=== PATIENT | female | born 1960 | race African-American/Black ===

== ENCOUNTER 2016-07-01 12:13 | Inpatient (IN) | payer MEDICARE, MEDICAID ==
--- NOTE | 2016-07-01 12:32 | ER Document Report ---
[id number] Information source: Patient TRAVEL OUTSIDE OF THE [place] IN LAST 30 DAYS: No - HPI Patient complains to provider of: Dizziness Onset: Other - "several days" Onset/Duration: Gradual, Persistent <WENDY SELLERS - Last Filed: 07/07/16 05:58> - General Chief Complaint: Dizziness Stated Complaint: DIZZINESS Notes: This 55-year-old female patient is brought from the senior care for dizziness for the past few days. She was admitted here on 05/07/2016 with COPD exacerbation, pneumonia, requiring intubation. She was readmitted on 2015 and on 1225 transferred to [facility]. Prior to transfer she received 2 units of packed cells for hemoglobin of 7.0 and heme positive stool. She also had atrial fibrillation and was on eloquent. She went to [facility] for EP studies, by patient history she had an ablation done and was discharged on metoprolol with no diltiazem. The paperwork from the senior care has the admission H&P from [facility] but no discharge summaries. The patient reports that they did not want to do endoscopy or colonoscopy at [facility] during that admission due to her other issues. They had recommended her for outpatient workup to identify a bleeding source. She does have a long history of tobacco dependence, COPD, alcoholism. When the patient sits up she becomes mostly dizzy probably due to orthostatic hypotension. (IRVING RAZO) Patient is a 55-year-old female presenting to the emergency department from [facility] chief complaint dizziness over the past several days. Patient is on 2 L of oxygen at home, and denies any symptoms besides the dizziness. Patient has a history of type II diabetes, congestive heart failure , COPD, and A. fib. (WENDY SELLERS) - Related Data Allergies/Adverse Reactions: erythromycin base [Erythromycin Base] Allergy (Mild, Verified 06/10/16 21:58) Home Medications: Current Home Medications Acetaminophen [Tylenol 325 mg Tablet] 325 mg PO Q4HP PRN 07/02/16 [History] Budesonide/Formoterol Fumarate [Symbicort HFA 160-4.5 mcg Inhaler 6 gm] 2 puff IH Q12 07/02/16 [History] Ferrous Sulfate [Iron] 325 mg PO DAILY 07/02/16 [History] Folic Acid [Folvite 1 mg Tablet] 1 mg PO DAILY 07/02/16 [History] Glipizide [Glucotrol 5 mg Tablet] 2.5 mg PO DAILY 07/02/16 [History] Ipratropium/Albuterol Sulfate [Duoneb 3 ml Ampul] 3 ml NEB RTQ4HP PRN 07/02/16 [ History] Pantoprazole Sodium [Protonix] 40 mg PO DAILY 07/02/16 [History] Past Medical History - General Information source: Patient, [facility] Records - Social History Smoking Status: Unknown if Ever Smoked Chew tobacco use (# tins/day): No Lives with: Fpc Family History: Reviewed & Not Pertinent, CAD, COPD, Hypertension - Past Medical History Cardiac Medical History: Reports: Hx Atrial Fibrillation, Hx Congestive Heart Failure, Hx Heart Attack, Hx Hypertension Pulmonary Medical History: Reports: Hx COPD, Hx Pneumonia Endocrine Medical History: Reports: 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 Musculoskeltal Medical History: Reports Hx Arthritis Past Surgical History: Reports: Hx Cardiac Catheterization, Hx Section - Immunizations Immunizations up to date: Yes Hx Diphtheria, Pertussis, Tetanus Vaccination: Yes Hx Pneumococcal Vaccination: 05/18/12 <WENDY SELLERS - Last Filed: 07/07/16 05:58> Review of Systems - Review of Systems Constitutional: No symptoms reported EENT: No symptoms reported Cardiovascular: See HPI, Dizziness Respiratory: No symptoms reported Gastrointestinal: No symptoms reported Genitourinary: No symptoms reported Female Genitourinary: No symptoms reported Musculoskeletal: No symptoms reported Skin: No symptoms reported Hematologic/Lymphatic: No symptoms reported Neurological/Psychological: No symptoms reported -: Yes All other systems reviewed and negative <WENDY SELLERS - Last Filed: 07/07/16 05:58> Physical Exam <IRVING RAZO - Last Filed: 07/01/16 16:02> - Vital signs Interpretation: Tachycardic - General General appearance: Alert - HEENT Head: Normocephalic, Atraumatic Eyes: Normal Pupils: PERRL - Respiratory Chest status: Nontender Breath sounds: Rhonchi, Wheezing - Cardiovascular Rhythm: Irregularly irregular, Tachycardia Heart sounds: Normal auscultation Murmur: No - Abdominal Inspection: Normal Distension: No distension Bowel sounds: Normal Tenderness: Nontender Organomegaly: No organomegaly - Back Back: Normal, Nontender - Extremities General upper extremity: Normal inspection, Nontender, Normal color, Normal ROM , Normal temperature General lower extremity: Normal inspection, Nontender, Normal color, Normal ROM , Normal temperature - Neurological Neuro grossly intact: Yes Cognition: Normal [place] Coma Scale Eye Opening: Spontaneous [place] Coma Scale Verbal: Oriented [place] Coma Scale Motor: Obeys Commands [place] Coma Scale Total: 15 Speech: Normal - Psychological Associated symptoms: Normal affect, Normal mood - Skin Skin Temperature: Warm Skin Moisture: Dry Skin Color: Normal <WENDY SELLERS - Last Filed: 07/07/16 05:58> - Vital signs Vitals: Resp BP 17 76/53 L 07/01/16 12:29 07/01/16 12:29 (IRVING RAZO) - Respiratory Notes: Oxygen tubes from [employer] are filled with water suggestive of less than adequate delivery of O2. (WENDY SELLERS) Course - Laboratory Result Diagrams: 07/01/16 13:45 07/01/16 13:45 - Diagnostic Test Radiology reviewed: Image reviewed, Reports reviewed - Chest x-ray read as mild fluid overload or CHF imposed on COPD. - EKG Interpretation by Nd EKG shows normal: [place], QRS Complexes. abnormal: Intervals - Prolonged QT interval, ST-T Waves - Diffuse ST elevations Rate: Tachycardia - 156 Rhythm: A.Fib, A.Flutter - Consults Dr. Parish Time consulted: 16:45 Consulted provider: will come to ER <IRVING RAZO - Last Filed: 07/01/16 16:02> - Laboratory Result Diagrams: 07/03/16 05:32 07/03/16 05:32 <WENDY SELLERS - Last Filed: 07/07/16 05:58> - Re-evaluation Re-evalutation: 07/01/16 15:46 After being on Cardizem drip and receiving 1 L fluid, the patient has gone back into sinus rhythm, and Cardizem drip was decreased from 10-5 mg/h. Her blood pressure is still in the 85-90 range, but she does feel better unless she sits up. She is due to receive blood transfusions when the blood is available. 2 units of blood were ordered. She may need diuresis while she is receiving the blood. The chest x-ray was read as mild fluid overdose or CHF superimposed on COPD, however her BNP is only 498 despite being in atrial fibrillation with RVR for quite some time. Her total CK is less than 20. (IRVING RAZO) - Vital Signs Vital signs: Temp Pulse Resp BP Pulse Ox 97.6 F 85 16 123/84 100 07/03/16 11:47 07/03/16 11:47 07/03/16 11:47 07/03/16 11:47 07/03/16 11:47 (IRVING RAZO) - Laboratory Laboratory results interpreted by me: 07/01/16 07/01/16 07/01/16 13:45 13:45 13:45 WBC 11.3 H RBC 2.83 L Hgb 7.0 L Hct 23.2 L MCH 24.9 L MCHC 30.3 L RDW 19.3 H Potassium 3.1 L Chloride 93 L Carbon Dioxide 38 H BUN 21 H Creatine Kinase < 20 L Total Protein 5.7 L Albumin 2.8 L Crossmatch 07/01/16 14:59 WBC RBC Hgb Hct MCH MCHC RDW Potassium Chloride Carbon Dioxide BUN Creatine Kinase Total Protein Albumin Crossmatch See Detail Critical Care Note - Critical Care Note Total time excluding time spent on procedures (mins): 50 <IRVING RAZO - Last Filed: 07/01/16 16:02> Discharge - Discharge Admitting Provider: Hospitalist Unit Admitted: ICU <IRVING RAZO - Last Filed: 07/01/16 16:02> <WENDY SELLERS - Last Filed: 07/07/16 05:58> - Discharge Clinical Impression: Atrial fibrillation with rapid ventricular response, Orthostatic lightheadedness Anemia Qualifiers: Anemia type: unspecified type Qualified Code(s): D64.9 - Anemia, unspecified GI bleed Qualifiers: GI bleed type/associated pathology: unspecified gastrointestinal hemorrhage type Qualified Code(s): K92.2 - Gastrointestinal hemorrhage, unspecified COPD (chronic obstructive pulmonary disease) Qualifiers: COPD type: chronic bronchitis Chronic bronchitis type: unspecified Qualified Code(s): J42 - Unspecified chronic bronchitis Hypotension Qualifiers: Hypotension type: unspecified hypotension type Qualified Code(s): I95.9 - Hypotension, unspecified Scribe Attestation: 07/01/16 16:03 I personally performed the services described in the documentation, reviewed and edited the documentation which was dictated to the scribe in my presence, and it accurately records my words and actions. (IRVING RAZO) Scribe Documentation <IRVING RAZO - Last Filed: 07/01/16 16:02> <WENDY SELLERS - Last Filed: 07/07/16 05:58> - Scribe Written by Scribe:: MADDIE MCPHERSON 07/01/16 1231 Acting as scribe for: (IRVING RAZO) Dr. Razo (WENDY SELLERS)
[2016-07-01] MEDS ORDERED: DILTIAZEM HCL/D5W 125 ML IV PRN ×2 (12:42→16:31)
[2016-07-01] MEDS ORDERED: NORMAL SALINE 1000 ML 250 ML IV ONE (13:13)
[2016-07-01] MEDS ORDERED: IPRATROPIUM/ALBUTEROL 0.5-2.5 MG/3 ML AMPUL NEB ONE (13:42)
[2016-07-01 14:23] LABS: ABSOLUTE BASOPHILS # (AUTO) 0.1 10^3/uL (0.0-0.2); ABSOLUTE LYMPHOCYTES (AUTO) 2.1 10^3/uL (0.5-4.7); ABSOLUTE MONOCYTES (AUTO) 0.8 10^3/uL (0.1-1.4); ABSOLUTE NEUT (AUTO) 8.2 10^3/uL (1.7-8.2); EOSINOPHILS % (AUTO) 0.3 % (0-6); HEMATOCRIT 23.2 % (36.0-47.0); HGB HCT DIFFERENCE -2.2; LYMPHOCYTES % (AUTO) 18.7 % (13-45); MEAN CORPUSCULAR HEMOGLOBIN 24.9 pg (27.0-33.4); MEAN CORPUSCULAR HGB CONC 30.3 g/dL (32.0-36.0); MEAN CORPUSCULAR VOLUME 82 fl (80-97); MONOCYTES % (AUTO) 7.2 % (3-13); RED BLOOD COUNT 2.83 10^6/uL (3.72-5.28); RED CELL DISTRIBUTION WIDTH 19.3 % (11.5-14.0); SEGMENTED NEUTROPHILS % (AUTO) 72.8 % (42-78); WHITE BLOOD COUNT 11.3 10^3/uL (4.0-10.5)
[2016-07-01 14:33] LABS: ALANINE AMINOTRANSFERASE 24 U/L (9-52); ALBUMIN 2.8 g/dL (3.5-5.0); ALKALINE PHOSPHATASE 63 U/L (38-126); ANION GAP 12 (5-19); ASPARTATE AMINO TRANSFERASE 18 U/L (14-36); BILIRUBIN,TOTAL 0.2 mg/dL (0.2-1.3); BLOOD UREA NITROGEN 21 mg/dL (7-20); CALCIUM 8.7 mg/dL (8.4-10.2); CARBON DIOXIDE 38 mmol/L (22-30); CHLORIDE 93 mmol/L (98-107); CREATININE RESULT 0.84 mg/dL (0.52-1.25); GLUCOSE 96 mg/dL (75-110); MAGNESIUM 1.6 mg/dL (1.6-2.3); POTASSIUM 3.1 mmol/L (3.6-5.0); SODIUM 142.9 mmol/L (137-145); TOTAL PROTEIN 5.7 g/dL (6.3-8.2)
[2016-07-01 14:45] LABS: ADD ON TESTING BLD IN LAB ACKNOWLEDGE
[2016-07-01 15:05] LABS: CREATINE KINASE < 20 U/L (30-135)
[2016-07-01 15:37] LABS: APPEARANCE,URINE CLEAR; BILIRUBIN,URINE NEGATIVE (NEGATIVE); GLUCOSE, URINE NEGATIVE (NEGATIVE); KETONES,URINE NEGATIVE (NEGATIVE); LEUKOCYTE ESTERASE,URINE NEGATIVE (NEGATIVE); NITRITE,URINE NEGATIVE (NEGATIVE); PROTEIN,URINE NEGATIVE (NEGATIVE); URINE SPECIFIC GRAVITY 1.006; UROBILINOGEN,URINE NEGATIVE mg/dL (<2.0)
[2016-07-01] MEDS ORDERED: IPRATROPIUM/ALBUTEROL 0.5-2.5 MG/3 ML AMPUL NEB PRN (16:20)
[2016-07-01] MEDS ORDERED: ONDANSETRON HCL INJ/PF 4 MG/2 ML SDV IV PRN (16:27)
[2016-07-01] MEDS ORDERED: MAGNESIUM HYDROXIDE SUSP 30 ML UDCUP PO PRN (16:27)
[2016-07-01] MEDS ORDERED: DEXTROSE 40% GEL 15 GM TUBE PO PRN ×2 (16:32)
[2016-07-01] MEDS ORDERED: NORMAL SALINE 250 ML IV PRN (16:32)
[2016-07-01] MEDS ORDERED: GLUCAGON,HUMAN RECOMB 1 MG INJ IM PRN (16:32)
[2016-07-01] MEDS ORDERED: DEXTROSE 50%-WATER 25 GM/50 ML DISP.SYRIN IV PRN ×2 (16:32)
--- NOTE | 2016-07-01 16:57 | PDOC H&P ---
History of Present Illness Admission Date/PCP: CHANO CHERY Patient complains of: Dizziness History of Present Illness: TERE VALERIO is a 55 year old female presents from [facility] with a one -week history of dizziness, worse with change in posture. The patient is at halfway facility for rehabilitation after multiple hospitalizations and chronic medical problems not the least of which include: Atrial fibrillation with RVR status post ablation [facility] ago, hospitalization over the holidays for pneumonia requiring intubation and mechanical ventilation for a period of time ultimately resulting in transfer to tertiary care center for critical care, acute on chronic anemia in need of endoscopy and requiring transfusion but has been in and out of the hospital and unable to complete endoscopy. Evaluation in the emergency department shows her to be in recurrent atrial fibrillation with RVR and a heart rate of 150, worsening of her chronic anemia with a hemoglobin of 7.0, and hypotension with systolic pressures initially in the 80s. She was given a bolus of Cardizem, a bolus of normal saline, and started on a Cardizem drip with good results and conversion back to normal sinus rhythm with heart rate now in the 80s and improvement of her systolic blood pressure 100. 2 units of packed red blood cells have been ordered and are still pending at the time of this dictation. We were asked to admit the patient due to multiple medical problems for further evaluation and treatment. Of note we do not have gastroenterology covered this weekend. 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 Musculoskeltal Medical History: Reports: Arthritis Hematology: Reports: Anemia Past Surgical History Past Surgical History: Reports: Cardiac Catheterization, Section Social History Lives with: Fpc Smoking Status: Smoker,Current Status Unk Frequency of Alcohol Use: None Hx Recreational Drug Use: No Drugs: None Hx Prescription Drug Abuse: No - Advance Directive Resuscitation Status: Full Code Family History Family History: Reviewed & Not Pertinent, CAD, COPD, Hypertension Parental Family History Reviewed: Yes Children Family History Reviewed: Yes Sibling(s) Family History Reviewed.: Yes Medication/Allergy Home Medications: Ferrous Sulfate [Iron] 325 mg PO DAILY #30 capsule.sa 08/17/12 Aspirin [Aspirin 81 mg Chewable Tablet] 81 mg PO DAILY 10/23/14 Albuterol Sulfate [Ventolin Hfa] 2 puff IN QID PRN 03/15/16 Budesonide/Formoterol Fumarate [Symbicort HFA 160-4.5 mcg Inhaler 6 gm] 2 puff IN BID 03/15/16 Furosemide [Lasix 40 mg Tablet] 40 mg PO DAILY 03/15/16 Ipratropium/Albuterol Sulfate [Duoneb 3 ml Ampul] 3 ml NEB Q4HP PRN #90 vial.neb 03/17/16 Acetaminophen [Tylenol 325 mg Tablet] 650 mg PO Q4HP PRN tablet 05/24/16 Apixaban [Eliquis 5 mg Tablet] 5 mg PO BID #60 tablet 05/24/16 Diltiazem HCl [Diltiazem 24Hr Cd] 360 mg PO DAILY #30 cap.er.24h 05/24/16 Guaifenesin [Mucinex Sr 600 mg Tablet.sa] 1,200 mg PO Q12 tablet.sa 05/24/16 Metoprolol Tartrate [Lopressor 50 mg Tablet] 100 mg PO Q12 tablet 05/24/16 Nicotine [Nicoderm 14 mg/24 Hr Transdermal Patch] 1 each TD DAILYP PRN patch.td24 05/24/16 Prednisone [Deltasone 20 mg Tablet] 40 mg PO QAM #60 tablet 05/24/16 Allergies/Adverse Reactions: erythromycin base [Erythromycin Base] Allergy (Mild, Verified 06/10/16 21:58) Review of Systems Constitutional: PRESENT: as per HPI, weakness. ABSENT: headache(s), night sweats Eyes: ABSENT: visual disturbances Ears: ABSENT: hearing changes Nose, Mouth, and Throat: ABSENT: sore throat Cardiovascular: PRESENT: chest pain - Right-sided sharp stabbing worse with inspiration and cough., dyspnea on exertion, edema. ABSENT: orthropnea - Bilateral feet, palpitations Respiratory: PRESENT: cough, dyspnea. ABSENT: hemoptysis Gastrointestinal: ABSENT: abdominal pain, coffee ground emesis, diarrhea, dysphagia, heartburn, hematemesis, hematochezia, melena, nausea, vomiting Genitourinary: ABSENT: hematuria Integumentary: ABSENT: erythema, rash Hematologic/Lymphatic: PRESENT: easy bruising. ABSENT: easy bleeding Physical Exam Vital Signs: Temp Pulse Resp BP Pulse Ox 11 L 94/54 L 98 07/01/16 16:31 07/01/16 16:31 07/01/16 16:31 Intake & Output 06/30/16 07/01/16 07/02/16 06:59 06:59 06:59 Weight 59.5 kg General appearance: PRESENT: no acute distress, thin, well-developed Head exam: PRESENT: atraumatic, normocephalic Eye exam: PRESENT: EOMI, PERRLA. ABSENT: conjunctival injection Mouth exam: PRESENT: moist, neck supple Teeth exam: PRESENT: poor dentation - Multiple missing teeth Neck exam: ABSENT: carotid bruit, JVD, lymphadenopathy, tenderness Respiratory exam: PRESENT: crackles - Diminished with end expiratory crackles at the bases, prolonged expiratory phas. ABSENT: accessory muscle use, rhonchi , unlabored, wheezes Cardiovascular exam: PRESENT: RRR. ABSENT: systolic murmur Pulses: PRESENT: normal carotid pulses, normal radial pulses GI/Abdominal exam: PRESENT: normal bowel sounds, soft. ABSENT: tenderness Rectal exam: PRESENT: deferred Extremities exam: PRESENT: pedal edema - Confined to the feet and ankles. ABSENT: calf tenderness Musculoskeletal exam: PRESENT: full ROM, other - Strength proximally for about 5 Neurological exam: PRESENT: alert, awake, oriented to person, oriented to place , oriented to time Psychiatric exam: PRESENT: appropriate affect, normal mood Skin exam: PRESENT: warm. ABSENT: dry - Moist, erythema, petechiae Results Laboratory Results: 07/01/16 13:45 07/01/16 13:45 07/01/16 07/01/16 07/01/16 13:45 13:45 14:50 WBC 11.3 H RBC 2.83 L Hgb 7.0 L Hct 23.2 L MCV 82 MCH 24.9 L MCHC 30.3 L RDW 19.3 H Plt Count 345 Seg Neutrophils % 72.8 Lymphocytes % 18.7 Monocytes % 7.2 Eosinophils % 0.3 Basophils % 1.0 Absolute Neutrophils 8.2 Absolute Lymphocytes 2.1 Absolute Monocytes 0.8 Absolute Eosinophils 0.0 Absolute Basophils 0.1 Sodium 142.9 Potassium 3.1 L Chloride 93 L Carbon Dioxide 38 H Anion Gap 12 BUN 21 H Creatinine 0.84 Est GFR ( Amer) > 60 Est GFR (Non-Af Amer) > 60 Glucose 96 Calcium 8.7 Magnesium 1.6 Total Bilirubin 0.2 AST 18 ALT 24 Alkaline Phosphatase 63 Total Protein 5.7 L Albumin 2.8 L Urine Color STRAW Urine Appearance CLEAR Urine pH 7.0 Ur Specific [place] 1.006 Urine Protein NEGATIVE Urine Glucose (UA) NEGATIVE Urine Ketones NEGATIVE Urine Blood NEGATIVE Urine Nitrite NEGATIVE Ur Leukocyte Esterase NEGATIVE Urine WBC (Auto) 2 Urine RBC (Auto) 0 Blood Type Antibody Screen 07/01/16 14:59 WBC RBC Hgb Hct MCV MCH MCHC RDW Plt Count Seg Neutrophils % Lymphocytes % Monocytes % Eosinophils % Basophils % Absolute Neutrophils Absolute Lymphocytes Absolute Monocytes Absolute Eosinophils Absolute Basophils Sodium Potassium Chloride Carbon Dioxide Anion Gap BUN Creatinine Est GFR ( Amer) Est GFR (Non-Af Amer) Glucose Calcium Magnesium Total Bilirubin AST ALT Alkaline Phosphatase Total Protein Albumin Urine Color Urine Appearance Urine pH Ur Specific [place] Urine Protein Urine Glucose (UA) Urine Ketones Urine Blood Urine Nitrite Ur Leukocyte Esterase Urine WBC (Auto) Urine RBC (Auto) Blood Type O POSITIVE Antibody Screen NEGATIVE 07/01/16 07/01/16 07/01/16 13:45 13:45 13:45 Creatine Kinase < 20 L Troponin I 0.074 NT-Pro-B Natriuret Pep 498 Impressions: Chest X-Ray 07/01/16 12:42 IMPRESSION: Suspect mild fluid overload or congestive failure superimposed on obstructive lung disease Status: Image reviewed by me Assessment & Plan - Diagnosis (1) Anemia Qualifiers: Anemia type: unspecified type Qualified Code(s): D64.9 - Anemia, unspecified Is this a current diagnosis for this admission?: YesPlan: Transfuse 2 units of packed red blood cells as ordered in the emergency department, continue to trend H&H. The patient is on chronic iron therapy rendering Hemoccult stools useless. If we are unable to maintain a stable hemoglobin and/or the patient shows signs of bleeding she will need to be transferred to a tertiary care center with gastroenterology consult available. (2) Atrial fibrillation with rapid ventricular response Is this a current diagnosis for this admission?: YesPlan: Continue Cardizem drip through the night started in the emergency department, hoping to transition back to her oral Cardizem in the morning. No anticoagulation due to anemia and possible GI bleed. (3) Hypovolemic shock Is this a current diagnosis for this admission?: YesPlan: IV fluids until transfusion complete and then IV fluids as needed to maintain mean arterial pressure greater than or equal to 65. (4) Orthostatic lightheadedness Is this a current diagnosis for this admission?: YesPlan: As above (5) COPD (chronic obstructive pulmonary disease) Qualifiers: COPD type: chronic bronchitis Chronic bronchitis type: unspecified Qualified Code(s): J42 - Unspecified chronic bronchitis Is this a current diagnosis for this admission?: YesPlan: Appears to be at baseline. Continue supplement oxygen. Duo nebs when necessary. Pulmonary toilet. (6) Hypokalemia Is this a current diagnosis for this admission?: YesPlan: Replace and monitor. Magnesium low level of normal and 2 g of mag. As it is Likely contributing to cardiac dysrhythmia. - Time Time Spent: 50 to 70 Minutes - Inpatient Certification Based on my medical assessment, after consideration of the patient's comorbidities, presenting symptoms, or acuity I expect that the services needed warrant INPATIENT care.: Yes I certify that my determination is in accordance with my understanding of Medicare's requirements for reasonable and necessary INPATIENT services [42 CFR 412.3e].: Yes Medical Necessity: Significant Comorbidiites Make Outpatient Treatment Too Risky , Need For IV Fluids, Need For Continuous Telemetry Monitoring
[2016-07-01] MEDS: MAGNESIUM SULFATE/D5W 1 GM/100 ML RTUPB IV SCH ×2 (18:58→20:20)
[2016-07-01] MEDS: INSULIN REG, HUMAN 100 UNIT/ML 3 ML VIAL (PYX) SUBCUT PRN (21:51)
[2016-07-01] MEDS: POTASSI CL 20 MEQ/NS 1L 1,000 ML IV PRN (21:51)
[2016-07-02 04:04] LABS: ABSOLUTE BASOPHILS # (AUTO) 0.1 10^3/uL (0.0-0.2); ABSOLUTE EOSINOPHILS # (AUTO) 0.1 10^3/uL (0.0-0.6); ABSOLUTE LYMPHOCYTES (AUTO) 1.8 10^3/uL (0.5-4.7); ABSOLUTE MONOCYTES (AUTO) 0.8 10^3/uL (0.1-1.4); BASOPHILS % (AUTO) 0.9 % (0-2); EOSINOPHILS % (AUTO) 1.2 % (0-6); LYMPHOCYTES % (AUTO) 18.6 % (13-45); MEAN CORPUSCULAR HEMOGLOBIN 25.7 pg (27.0-33.4); MEAN CORPUSCULAR HGB CONC 31.9 g/dL (32.0-36.0); MEAN CORPUSCULAR VOLUME 81 fl (80-97); MONOCYTES % (AUTO) 8.1 % (3-13); RED BLOOD COUNT 3.11 10^6/uL (3.72-5.28); RED CELL DISTRIBUTION WIDTH 18.8 % (11.5-14.0); SEGMENTED NEUTROPHILS % (AUTO) 71.2 % (42-78); WHITE BLOOD COUNT 9.8 10^3/uL (4.0-10.5)
[2016-07-02 04:14] LABS: ANION GAP 8 (5-19); BLOOD UREA NITROGEN 24 mg/dL (7-20); CALCIUM 8.3 mg/dL (8.4-10.2); CARBON DIOXIDE 37 mmol/L (22-30); CHLORIDE 98 mmol/L (98-107); GLUCOSE 137 mg/dL (75-110); POTASSIUM 3.2 mmol/L (3.6-5.0); SODIUM 142.8 mmol/L (137-145)
[2016-07-02] MEDS: LANSOPRAZOLE 30 MG TAB.RAP.DR PO SCH (05:42)
[2016-07-02] MEDS: POTASSI CL 20 MEQ/NS 1L 1,000 ML IV PRN (08:06)
--- NOTE | 2016-07-02 10:06 | EKG REPORT ---
SEVERITY:- BORDERLINE ECG - SINUS RHYTHM VENTRICULAR PREMATURE COMPLEX BORDERLINE T ABNORMALITIES, ANT-LAT LEADS : Confirmed by: Janine Aviles MD 02-Jul-2016 10:06:24
[2016-07-02] MEDS: DOCUSATE SODIUM 100 MG CAPSULE PO SCH (10:08)
--- NOTE | 2016-07-02 10:08 | EKG REPORT ---
SEVERITY:- ABNORMAL ECG - SINUS TACHYCARDIA VERSUS SVT.CORELATE CLINICALLY FIRST DEGREE AV BLOCK ST ELEVATION SUGGESTS PERICARDITIS PROLONGED QT INTERVAL : Confirmed by: Janine Aviles MD 02-Jul-2016 10:07:56
[2016-07-02] MEDS ORDERED: NORMAL SALINE 250 ML IV PRN ×2 (11:01)
[2016-07-02] MEDS ORDERED: POTASSI CL 20 MEQ/NS 1L 1,000 ML IV PRN (11:05)
--- NOTE | 2016-07-02 11:13 | PDOC PROGRESS REPORT ---
Subjective Progress Note for:: 07/02/16 Subjective:: TERE VALERIO is a 55 year old female presents from [facility] with a one -week history of dizziness, worse with change in posture. The patient is at snf facility for rehabilitation after multiple hospitalizations and chronic medical problems not the least of which include: Atrial fibrillation with RVR status post ablation at [facility] 2 weeks ago, hospitalization over the holidays for pneumonia requiring intubation and mechanical ventilation for a period of time ultimately resulting in transfer to tertiary care center for critical care, acute on chronic anemia in need of endoscopy and requiring transfusion but has been in and out of the hospital and unable to complete endoscopy. Evaluation in the emergency department shows her to be in recurrent atrial fibrillation with RVR and a heart rate of 150, worsening of her chronic anemia with a hemoglobin of 7.0, and hypotension with systolic pressures initially in the 80s. She was given a bolus of Cardizem, a bolus of normal saline, and started on a Cardizem drip with good results and conversion back to normal sinus rhythm with heart rate now in the 80s and improvement of her systolic blood pressure 100. 2 units of packed red blood cells have been ordered and are still pending at the time of this dictation. We were asked to admit the patient due to multiple medical problems for further evaluation and treatment. Of note we do not have gastroenterology covered this weekend. The patient tolerated transfusion of 2 units last night without difficulty however her hemoglobin only came up by 1 g. Her overall condition improved, meaning she remained in a normal sinus rhythm while on a Cardizem drip at 5 mg per hour through the night. Likewise her blood pressure stabilized. Swelling of her lower extremities improved. Respiratory status remained stable. Overall she feels better than when she came in with resolution of her dizziness. Physical Exam Vital Signs: Temp Pulse Resp BP Pulse Ox 98.6 F 89 20 117/69 100 07/02/16 07:55 07/02/16 11:00 07/02/16 07:55 07/02/16 11:00 07/02/16 07:55 Intake & Output 07/01/16 07/02/16 07/03/16 06:59 06:59 06:59 Intake Total 2165 Output Total 800 Balance 1365 Weight 58.1 kg General appearance: PRESENT: no acute distress, thin, well-developed Head exam: PRESENT: atraumatic, normocephalic Eye exam: PRESENT: conjunctiva pink, EOMI, PERRLA. ABSENT: scleral icterus Mouth exam: PRESENT: moist, tongue midline Neck exam: ABSENT: carotid bruit, JVD, lymphadenopathy, thyromegaly Respiratory exam: PRESENT: crackles - Basis, decreased breath sounds, unlabored. ABSENT: rales, rhonchi, wheezes Cardiovascular exam: PRESENT: RRR. ABSENT: diastolic murmur, rubs, systolic murmur Pulses: PRESENT: normal dorsalis pedis pul Vascular exam: PRESENT: normal capillary refill GI/Abdominal exam: PRESENT: normal bowel sounds, soft. ABSENT: distended, guarding, rebound, tenderness Rectal exam: PRESENT: deferred Extremities exam: PRESENT: full ROM, pedal edema - Ankles, improved. ABSENT: calf tenderness, clubbing Musculoskeletal exam: PRESENT: ambulatory Neurological exam: PRESENT: alert, awake, oriented to person, oriented to place , oriented to time, oriented to situation Psychiatric exam: PRESENT: appropriate affect, normal mood Skin exam: PRESENT: warm. ABSENT: cyanosis, dry - Moist Results Laboratory Results: 07/02/16 03:45 07/02/16 03:45 07/02/16 07/02/16 03:45 03:45 WBC 9.8 RBC 3.11 L Hgb 8.0 L Hct 25.0 L MCV 81 MCH 25.7 L MCHC 31.9 L RDW 18.8 H Plt Count 282 Seg Neutrophils % 71.2 Lymphocytes % 18.6 Monocytes % 8.1 Eosinophils % 1.2 Basophils % 0.9 Absolute Neutrophils 7.0 Absolute Lymphocytes 1.8 Absolute Monocytes 0.8 Absolute Eosinophils 0.1 Absolute Basophils 0.1 Sodium 142.8 Potassium 3.2 L Chloride 98 Carbon Dioxide 37 H Anion Gap 8 BUN 24 H Creatinine 0.80 Est GFR ( Amer) > 60 Est GFR (Non-Af Amer) > 60 Glucose 137 H Calcium 8.3 L Phosphorus 4.0 Magnesium 2.0 07/01/16 07/01/16 07/02/16 19:57 21:18 03:45 Troponin I Cancelled 0.181 0.116 07/02/16 09:12 Troponin I 0.083 Impressions: Chest X-Ray 07/01/16 12:42 IMPRESSION: Suspect mild fluid overload or congestive failure superimposed on obstructive lung disease Assessment & Plan - Diagnosis (1) Anemia Qualifiers: Anemia type: unspecified type Qualified Code(s): D64.9 - Anemia, unspecified Is this a current diagnosis for this admission?: YesPlan: Transfuse another 2 units of packed red blood cells, continue to trend H&H. The patient is on chronic iron therapy rendering Hemoccult stools useless. If we are unable to maintain a stable hemoglobin and/or the patient shows signs of bleeding she will need to be transferred to a tertiary care center with gastroenterology consult available. (2) Atrial fibrillation with rapid ventricular response Is this a current diagnosis for this admission?: YesPlan: Resolved. Start oral and discontinue Cardizem drip. eliquis on hold, No anticoagulation due to anemia and possible GI bleed. (3) Hypovolemic shock Is this a current diagnosis for this admission?: YesPlan: Resolved with IV fluids, continue gentle IV fluids. On withdrawing status. (4) Orthostatic lightheadedness Is this a current diagnosis for this admission?: YesPlan: Resolved (5) COPD (chronic obstructive pulmonary disease) Qualifiers: COPD type: chronic bronchitis Chronic bronchitis type: unspecified Qualified Code(s): J42 - Unspecified chronic bronchitis Is this a current diagnosis for this admission?: Yes (6) Hypokalemia Is this a current diagnosis for this admission?: YesPlan: Replace and monitor. Magnesium low level of normal and 2 g of mag. As it is Likely contributing to cardiac dysrhythmia. - Time Time Spent with patient: 35 or more minutes Anticipated discharge: SNF Within: within 48 hours
[2016-07-02] MEDS ORDERED: POTASSIUM CHLORIDE 10 MEQ TABLET.SA PO ONE (12:00)
[2016-07-02] MEDS ORDERED: DILTIAZEM HCL 240 MG CAPSULE.CR PO ONE (12:00)
[2016-07-02] MEDS: ACETAMINOPHEN 325 MG TABLET PO PRN ×2 (15:24→23:53)
[2016-07-02] MEDS: INSULIN REG, HUMAN 100 UNIT/ML 3 ML VIAL (PYX) SUBCUT PRN (17:49)
[2016-07-02] MEDS: POTASSIUM CHLORIDE 10 MEQ TABLET.SA PO SCH (21:07)
[2016-07-02 23:12] LABS: ABSOLUTE BASOPHILS # (AUTO) 0.1 10^3/uL (0.0-0.2); ABSOLUTE EOSINOPHILS # (AUTO) 0.2 10^3/uL (0.0-0.6); ABSOLUTE LYMPHOCYTES (AUTO) 2.1 10^3/uL (0.5-4.7); ABSOLUTE MONOCYTES (AUTO) 0.9 10^3/uL (0.1-1.4); ABSOLUTE NEUT (AUTO) 6.3 10^3/uL (1.7-8.2); HEMATOCRIT 34.3 % (36.0-47.0); HGB HCT DIFFERENCE -1.9; LYMPHOCYTES % (AUTO) 22.2 % (13-45); MEAN CORPUSCULAR HEMOGLOBIN 25.4 pg (27.0-33.4); MEAN CORPUSCULAR HGB CONC 31.4 g/dL (32.0-36.0); MEAN CORPUSCULAR VOLUME 81 fl (80-97); MONOCYTES % (AUTO) 9.8 % (3-13); RED BLOOD COUNT 4.23 10^6/uL (3.72-5.28); WHITE BLOOD COUNT 9.7 10^3/uL (4.0-10.5)
[2016-07-02 23:23] LABS: HEMOGLOBIN 10.8 g/dL (12.0-15.5)
[2016-07-03] MEDS: LANSOPRAZOLE 30 MG TAB.RAP.DR PO SCH (05:30)
[2016-07-03 06:03] LABS: HEMATOCRIT 34.6 % (36.0-47.0); HEMOGLOBIN 10.7 g/dL (12.0-15.5); HGB HCT DIFFERENCE -2.5; MEAN CORPUSCULAR HEMOGLOBIN 25.5 pg (27.0-33.4); MEAN CORPUSCULAR HGB CONC 30.9 g/dL (32.0-36.0); MEAN CORPUSCULAR VOLUME 83 fl (80-97); RED CELL DISTRIBUTION WIDTH 19.2 % (11.5-14.0); WHITE BLOOD COUNT 9.3 10^3/uL (4.0-10.5)
[2016-07-03 06:27] LABS: ANION GAP 9 (5-19); BLOOD UREA NITROGEN 11 mg/dL (7-20); CALCIUM 9.1 mg/dL (8.4-10.2); CARBON DIOXIDE 35 mmol/L (22-30); CHLORIDE 100 mmol/L (98-107); CREATININE RESULT 0.48 mg/dL (0.52-1.25); GLUCOSE 153 mg/dL (75-110); POTASSIUM 3.8 mmol/L (3.6-5.0); SODIUM 144.4 mmol/L (137-145)
[2016-07-03] MEDS: POTASSIUM CHLORIDE 10 MEQ TABLET.SA PO SCH (09:02)
[2016-07-03] MEDS: DOCUSATE SODIUM 100 MG CAPSULE PO SCH (09:03)
[2016-07-03] MEDS ORDERED: DILTIAZEM HCL 240 MG CAPSULE.CR PO SCH (10:00)
[2016-07-03 11:50] VITALS: BP 123/84
--- NOTE | 2016-07-03 13:32 | PDOC DISCHARGE SUMMARY ---
General - Admit/Disc Date/PCP Admission Date/Primary Care Provider: 07/01/16 16:20 CHANO CHERY Discharge Date: 07/03/16 - Discharge Diagnosis (1) Anemia Is this a current diagnosis for this admission?: YesSummary: Status post transfusion of 4 units packed red blood cells without complication and with good improvement in her hemoglobin and hemodynamic status. She is already being followed by gastroenterology and Genny Gaxiola has follow-up appointment with them to schedule endoscopy. She is to remain off antiplatelet and anticoagulation therapy in the interim. (2) Atrial fibrillation with rapid ventricular response Is this a current diagnosis for this admission?: YesSummary: Rate is better controlled on Cardizem CD 240 mg, will DC her metoprolol and continue the Cardizem at home. She is to follow-up with her cardiology provider as needed. (3) Hypovolemic shock Is this a current diagnosis for this admission?: YesSummary: Resolved with transfusion and IV fluids. (4) Orthostatic lightheadedness Is this a current diagnosis for this admission?: YesSummary: Resolved with transfusion and IV fluids. (5) COPD (chronic obstructive pulmonary disease) Is this a current diagnosis for this admission?: YesSummary: Stable and at baseline. Has supplemental O2 and home nebulizer already at home and available for use (6) Hypokalemia Is this a current diagnosis for this admission?: YesSummary: Replaced. Resolved. - Additional Information Resuscitation Status: Full Code Discharge Diet: Cardiac Discharge Activity: Slowly Increase Activity Home Medications: Acetaminophen [Tylenol 325 mg Tablet] 325 mg PO Q4HP PRN 07/02/16 Budesonide/Formoterol Fumarate [Symbicort HFA 160-4.5 mcg Inhaler 6 gm] 2 puff IH Q12 07/02/16 Ferrous Sulfate [Iron] 325 mg PO DAILY 07/02/16 Folic Acid [Folvite 1 mg Tablet] 1 mg PO DAILY 07/02/16 Glipizide [Glucotrol 5 mg Tablet] 2.5 mg PO DAILY 07/02/16 Ipratropium/Albuterol Sulfate [Duoneb 3 ml Ampul] 3 ml NEB RTQ4HP PRN 07/02/16 Pantoprazole Sodium [Protonix] 40 mg PO DAILY 07/02/16 Diltiazem HCl [Cardizem Cd 240 mg Capsule.cr] 240 mg PO DAILY #0 capsule.cr Lorazepam [Ativan 0.5 mg Tablet] 0.5 mg PO TIDP PRN #0 tablet 07/03/16 History of Present Illness Patient complains of: Dizziness History of Present Illness: TERE VALERIO is a 55 year old female presents from [facility] with a one -week history of dizziness, worse with change in posture. The patient is at [facility]dc facility for rehabilitation after multiple hospitalizations and chronic medical problems not the least of which include: Atrial fibrillation with RVR status post ablation at [facility] 2 weeks ago, hospitalization over the holidays for pneumonia requiring intubation and mechanical ventilation for a period of time ultimately resulting in transfer to tertiary care center for critical care, acute on chronic anemia in need of endoscopy and requiring transfusion but has been in and out of the hospital and unable to complete endoscopy. Evaluation in the emergency department shows her to be in recurrent atrial fibrillation with RVR and a heart rate of 150, worsening of her chronic anemia with a hemoglobin of 7.0, and hypotension with systolic pressures initially in the 80s. She was given a bolus of Cardizem, a bolus of normal saline, and started on a Cardizem drip with good results and conversion back to normal sinus rhythm with heart rate now in the 80s and improvement of her systolic blood pressure 100. 2 units of packed red blood cells have been ordered and are still pending at the time of this dictation. We were asked to admit the patient due to multiple medical problems for further evaluation and treatment. Of note we do not have gastroenterology covered this weekend. Hospital Course Hospital Course: TERE VALERIO is a 55 year old female presents from [facility] with a one -week history of dizziness, worse with change in posture. The patient is at [facility] for rehabilitation after multiple hospitalizations and chronic medical problems not the least of which include: Atrial fibrillation with RVR status post ablation at [facility] 2 weeks ago, hospitalization over the holidays for pneumonia requiring intubation and mechanical ventilation for a period of time ultimately resulting in transfer to tertiary care center for critical care, acute on chronic anemia in need of endoscopy and requiring transfusion but has been in and out of the hospital and unable to complete endoscopy. Evaluation in the emergency department shows her to be in recurrent atrial fibrillation with RVR and a heart rate of 150, worsening of her chronic anemia with a hemoglobin of 7.0, and hypotension with systolic pressures initially in the 80s. She was given a bolus of Cardizem, a bolus of normal saline, and started on a Cardizem drip with good results and conversion back to normal sinus rhythm with heart rate now in the 80s and improvement of her systolic blood pressure 100. 2 units of packed red blood cells have been ordered and are still pending at the time of this dictation. We were asked to admit the patient due to multiple medical problems for further evaluation and treatment. Of note we do not have gastroenterology covered this weekend. The patient tolerated transfusion of 2 units last night without difficulty however her hemoglobin only came up by 1 g. Her overall condition improved, meaning she remained in a normal sinus rhythm while on a Cardizem drip at 5 mg per hour through the night. Likewise her blood pressure stabilized. Swelling of her lower extremities improved. Respiratory status remained stable. Overall she feels better than when she came in with resolution of her dizziness. She required an additional 22 units packed red blood cells to get her hemoglobin greater than 10 and achieve resolution of her presenting symptoms. She was taken off the Cardizem drip successfully and transitioned over to an oral regimen. Due to the presyncope and dizziness she presented with as well as recurrent atrial fibrillation with rapid ventricular response, decision was made to take her off her metoprolol and keep her on the Cardizem long-term. 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 She showed no overt signs or symptoms of acute blood loss. She has follow-up appointment with gastroenterology [facility] to set up outpatient endoscopy. She is to hold antiplatelet and anticoagulation until that follow-up as clearly her risk of hemodynamic significant bleeding outweighs the risk of embolic stroke from her atrial fibrillation. Physical Exam Vital Signs: Temp Pulse Resp BP Pulse Ox 97.6 F 85 16 123/84 100 07/03/16 11:47 07/03/16 11:47 07/03/16 11:47 07/03/16 11:47 07/03/16 11:47 Intake & Output 07/02/16 07/03/16 07/04/16 06:59 06:59 06:59 Intake Total 2165 3270 480 Output Total 800 2300 Balance 1365 970 480 Weight 58.1 kg 59.1 kg General appearance: PRESENT: no acute distress, thin Respiratory exam: PRESENT: chest wall tenderness - Right lower ribs with palpation and deep inspiration, decreased breath sounds. ABSENT: rales, rhonchi , wheezes Cardiovascular exam: PRESENT: RRR - Converted to normal sinus rhythm in the emergency department and remained in same since. GI/Abdominal exam: PRESENT: normal bowel sounds, soft. ABSENT: tenderness Extremities exam: PRESENT: pedal edema Results Laboratory Results: 07/03/16 05:32 07/03/16 05:32 07/02/16 07/03/16 07/03/16 22:53 05:32 05:32 WBC 9.7 9.3 RBC 4.23 4.20 Hgb 10.8 L D 10.7 L Hct 34.3 L 34.6 L MCV 81 83 MCH 25.4 L 25.5 L MCHC 31.4 L 30.9 L RDW 19.0 H 19.2 H Plt Count 299 308 Seg Neutrophils % 65.0 Lymphocytes % 22.2 Monocytes % 9.8 Eosinophils % 2.0 Basophils % 1.0 Absolute Neutrophils 6.3 Absolute Lymphocytes 2.1 Absolute Monocytes 0.9 Absolute Eosinophils 0.2 Absolute Basophils 0.1 Sodium 144.4 Potassium 3.8 Chloride 100 Carbon Dioxide 35 H Anion Gap 9 BUN 11 Creatinine 0.48 L Est GFR ( Amer) > 60 Est GFR (Non-Af Amer) > 60 Glucose 153 H Calcium 9.1 07/01/16 07/01/16 07/02/16 19:57 21:18 03:45 Troponin I Cancelled 0.181 0.116 07/02/16 09:12 Troponin I 0.083 Impressions: Chest X-Ray 07/01/16 12:42 IMPRESSION: Suspect mild fluid overload or congestive failure superimposed on obstructive lung disease Qualifiers PATEINT BEING DISCHARGED WITH ANY OF THE FOLLOWING DIAGNOSIS?: No HF Pt with Afib discharged with Warfarin?: No Reason(s) for not prescribing Warfarin:: Medical Contraindication Plan Discharge Plan: [facility] instead choosing to go home with home health and outpatient physical therapy and fdc; case management has met with patient and arrangements are in place. Follow-ups as noted above. Return to emergency department for worsening condition. Time Spent: Greater than 30 Minutes
== END 2016-07-03 14:22 | disposition home health service (06) | DRG 308 ==
LOC: ER 12:13 → EH 16:20 → 3W 22:37
PROVIDERS: ADMIT Internal Medicine; ATTEND Internal Medicine
PROC: 30233N1 Transfusion of Nonautologous Red Blood Cells into Peripheral Vein, Percutaneous Approach (ICD-10-PCS; principal; 2016-07-01)
PROC: 3E0F73Z Introduction of Anti-inflammatory into Respiratory Tract, Via Natural or Artificial Opening (ICD-10-PCS; 2016-07-03)
DX: I48.91 Unspecified atrial fibrillation (principal); R57.1 Hypovolemic shock; D64.9 Anemia, unspecified; I95.1 Orthostatic hypotension; J44.9 Chronic obstructive pulmonary disease, unspecified; E87.6 Hypokalemia; I50.9 Heart failure, unspecified; I10 Essential (primary) hypertension; M19.90 Unspecified osteoarthritis, unspecified site; E09.9 Drug or chemical induced diabetes mellitus without complications; F17.210 Nicotine dependence, cigarettes, uncomplicated; F10.20 Alcohol dependence, uncomplicated; Z99.81 Dependence on supplemental oxygen; T38.0X5S Adverse effect of glucocorticoids and synthetic analogues, sequela; I25.2 Old myocardial infarction; Z88.3 Allergy status to other anti-infective agents; Z79.899 Other long term (current) drug therapy; Z83.6 Family history of other diseases of the respiratory system; Z82.49 Family history of ischemic heart disease and other diseases of the circulatory system
CPT/HCPCS: 36415; 36430; 71010; 80048; 80053; 81001; 82550; 82962; 83735; 83880; 84100; 84484; 85025; 85027; 86850; 86900; 86901; 86920; 87040; 93005; 93010; 94640; 94667; 94668; 96365; 96366; 99291; J1815; J3475; J3480; J3490; J7030; J7620; P9016

== ENCOUNTER → 2016-07-31 | Outpatient (CLI) | payer MEDICAID, MEDICARE | LOC: RAD 08:03 | PROVIDERS: ATTEND Family Medicine | DX: R10.31 Right lower quadrant pain (principal); J18.9 Pneumonia, unspecified organism | CPT/HCPCS: 71020; 74177 ==

== ENCOUNTER 2016-11-28 05:28 | Inpatient (IN) | payer MEDICARE ==
[2016-11-28] MEDS ORDERED: IPRATROPIUM/ALBUTEROL 0.5-2.5 MG/3 ML AMPUL NEB ONE ×2 (05:38→06:06)
--- NOTE | 2016-11-28 05:42 | ER Document Report ---
Doctor's Note Notes: 11/28/16 05:40 I performed a quick triage evaluation of the patient. Patient is a 48-year-old female with a history of COPD and atrial fibrillation who comes in with difficulty breathing. She says it has been worsening over last several days with became very bad tonight. No vomiting. No fevers. No chest pain. No other complaints at this time. Her lung lópez are very tight and wheezing. Heart is rapid. No murmurs at this time. She did receive DuoNeb treatments and solu-medrol in the ambulance. I will give her magnesium, start her on BiPAP , continue nebulizer treatments start laboratory workup as well as chest x-ray. 11/28/16 05:41
[2016-11-28] MEDS: MAGNESIUM SULFATE/D5W 100 ML IV SCH ×2 (05:59→06:49)
--- NOTE | 2016-11-28 06:11 | ER Document Report ---
ED General - General Chief Complaint: Shortness Of Breath Stated Complaint: RESPIRATORY DIFFICULTY Time Seen by Provider: 11/28/16 05:37 Mode of Arrival: Medic Information source: Patient Notes: 56-year-old female history of COPD who was recently intubated in April presents with complaints of shortness of breath over the past 4 days. Patient is a multiple breathing treatments at home. Patient was found by EMS initially hypoxic and tachypneic significant respiratory distress, patient was given 2 duo nebs and Solu-Medrol TRAVEL OUTSIDE OF THE [place] IN LAST 30 DAYS: No - HPI Onset: Other Onset/Duration: Persistent Quality of pain: No pain Severity: Severe Pain Level: Denies Associated symptoms: Nonproductive cough, Shortness of breath Exacerbated by: Movement, Walking, Coughing, Deep breathing Relieved by: Denies Similar symptoms previously: Yes Recently seen / treated by doctor: Yes - Related Data Allergies/Adverse Reactions: erythromycin base [Erythromycin Base] Allergy (Mild, Verified 06/10/16 21:58) Past Medical History - Social History Smoking Status: Unknown if Ever Smoked Cigarette use (# per day): No Chew tobacco use (# tins/day): No Smoking Education Provided: No Family History: Reviewed & Not Pertinent, CAD, COPD, Hypertension - Past Medical History Cardiac Medical History: Reports: Hx Atrial Fibrillation, Hx Congestive Heart Failure, Hx Heart Attack, Hx Hypertension Pulmonary Medical History: Reports: Hx COPD, Hx Pneumonia Endocrine Medical History: Reports: 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 Renal/ Medical History: Denies: Hx Peritoneal Dialysis Musculoskeltal Medical History: Reports Hx Arthritis Past Surgical History: Reports: Hx Cardiac Catheterization, Hx Section - Immunizations Immunizations up to date: Yes Hx Diphtheria, Pertussis, Tetanus Vaccination: Yes Hx Pneumococcal Vaccination: 05/18/12 Review of Systems - Review of Systems Notes: REVIEW OF SYSTEMS: CONSTITUTIONAL : Denies fever, chills, or sweats. Denies recent illness. EENT: Denies eye, ear, throat, or mouth pain or symptoms. Denies nasal or sinus congestion or discharge. Denies throat, tongue, or mouth swelling or difficulty swallowing. CARDIOVASCULAR: Denies chest pain. Denies palpitations or racing or irregular heart beat. Denies ankle edema. RESPIRATORY: sob, non productive cough GASTROINTESTINAL: Denies abdominal pain or distention. Denies nausea, vomiting , or diarrhea. Denies blood in vomitus, stools, or per rectum. Denies black, tarry stools. Denies constipation. GENITOURINARY: Denies difficulty urinating, painful urination, burning, frequency, blood in urine, or discharge. FEMALE GENITOURINARY: Denies vaginal bleeding, heavy or abnormal periods, irregular periods. Denies vaginal discharge or odor. MUSCULOSKELETAL: Denies back or neck pain or stiffness. Denies joint pain or swelling. SKIN: Denies rash, lesions or sores. HEMATOLOGIC : Denies easy bruising or bleeding. LYMPHATIC: Denies swollen, enlarged glands. NEUROLOGICAL: Denies confusion or altered mental status. Denies passing out or loss of consciousness. Denies dizziness or lightheadedness. Denies headache. Denies weakness or paralysis or loss of use of either side. Denies problems with gait or speech. Denies sensory loss, numbness, or tingling. Denies seizures. PHYSICAL EXAMINATION: GENERAL: Well-appearing, well-nourished and in no acute distress. HEAD: Atraumatic, normocephalic. EYES: Pupils equal round and reactive to light, extraocular movements intact, conjunctiva are normal. ENT: Nares patent, oropharynx clear without exudates. Moist mucous membranes. NECK: Normal range of motion, supple without lymphadenopathy LUNGS: decreased breath sounds all through out, very tight wheeze intercostal abdominal retractions HEART: Tachycardic ABDOMEN: Soft, nontender, nondistended abdomen. No guarding, no rebound. No masses appreciated. Female : deferred Musculoskeletal: Normal range of motion, no pitting or edema. No cyanosis. NEUROLOGICAL: Cranial nerves grossly intact. Normal speech, normal gait. Normal sensory, motor exams PSYCH: Normal mood, normal affect. SKIN: Warm, Dry, normal turgor, no rashes or lesions noted. PSYCHIATRIC: Denies anxiety or stress. Denies depression, suicidal ideation, or homicidal ideation. ALL OTHER SYSTEMS REVIEWED AND NEGATIVE. Dictation was performed using [employer] voice recognition software Physical Exam - Vital signs Vitals: Resp Pulse Ox 22 H 100 11/28/16 05:38 11/28/16 05:38 Course - Re-evaluation Re-evalutation: 11/28/16 06:28 Patient was immediately started on a BiPAP machine, was given magnesium and further breathing treatments. She notes significant improvement in her respiratory distress, patient has been instructed that if her symptoms do not improve further and she may require intubation, patient states she understands and was intubated for 10 days last winter11/28/16 08:11 pt is stable at this time, will admit for copd exacerbation - Vital Signs Vital signs: Temp Pulse Resp BP Pulse Ox 18 118/66 100 11/28/16 07:01 11/28/16 07:01 11/28/16 06:01 - Laboratory Result Diagrams: 11/28/16 05:58 11/28/16 05:58 Laboratory results interpreted by me: 11/28/16 11/28/16 11/28/16 05:58 05:58 06:49 Hgb 11.6 L MCH 24.4 L MCHC 30.7 L RDW 17.4 H VBG pH 7.27 L VBG pCO2 75.3 H* VBG HCO3 33.6 H Sodium 148.7 H Carbon Dioxide 34 H Glucose 124 H AST 50 H ALT 67 H - Diagnostic Test Radiology reviewed: Image reviewed, Reports reviewed - EKG Interpretation by Me EKG shows normal: Sinus rhythm, [place], Intervals, QRS Complexes Critical Care Note - Critical Care Note Total time excluding time spent on procedures (mins): 34 Comments: minutes of critical care time spent in direct contact evaluating and reevaluating the patient, treating symptoms, reviewing labs and studies and speaking with family and consultants excluding any procedures Discharge - Discharge Clinical Impression: Continuous tobacco abuse, COPD exacerbation Acute and chronic respiratory failure Qualifiers: Respiratory failure complication: hypoxia and hypercapnia Qualified Code(s): J96.21 - Acute and chronic respiratory failure with hypoxia Condition: Fair Disposition: ADMITTED INPATIENT Admitting Provider: Hospitalist Unit Admitted: IMCU
[2016-11-28 06:19] LABS: ABSOLUTE BASOPHILS # (AUTO) 0.1 10^3/uL (0.0-0.2); ABSOLUTE EOSINOPHILS # (AUTO) 0.1 10^3/uL (0.0-0.6); ABSOLUTE LYMPHOCYTES (AUTO) 2.3 10^3/uL (0.5-4.7); ABSOLUTE MONOCYTES (AUTO) 0.7 10^3/uL (0.1-1.4); ABSOLUTE NEUT (AUTO) 5.2 10^3/uL (1.7-8.2); BASOPHILS % (AUTO) 0.7 % (0-2); HEMATOCRIT 37.7 % (36.0-47.0); HEMOGLOBIN 11.6 g/dL (12.0-15.5); HGB HCT DIFFERENCE -2.9; LYMPHOCYTES % (AUTO) 27.8 % (13-45); MEAN CORPUSCULAR HEMOGLOBIN 24.4 pg (27.0-33.4); MEAN CORPUSCULAR HGB CONC 30.7 g/dL (32.0-36.0); MEAN CORPUSCULAR VOLUME 80 fl (80-97); MONOCYTES % (AUTO) 8.3 % (3-13); RED BLOOD COUNT 4.74 10^6/uL (3.72-5.28); RED CELL DISTRIBUTION WIDTH 17.4 % (11.5-14.0); SEGMENTED NEUTROPHILS % (AUTO) 62.2 % (42-78); WHITE BLOOD COUNT 8.3 10^3/uL (4.0-10.5)
[2016-11-28 06:40] LABS: ALANINE AMINOTRANSFERASE 67 U/L (9-52); ALBUMIN 3.7 g/dL (3.5-5.0); ALKALINE PHOSPHATASE 81 U/L (38-126); ANION GAP 9 (5-19); ASPARTATE AMINO TRANSFERASE 50 U/L (14-36); BILIRUBIN,DIRECT 0.3 mg/dL (0.0-0.4); BILIRUBIN,TOTAL 0.7 mg/dL (0.2-1.3); BLOOD UREA NITROGEN 20 mg/dL (7-20); CARBON DIOXIDE 34 mmol/L (22-30); CHLORIDE 106 mmol/L (98-107); CREATINE KINASE 110 U/L (30-135); CREATININE RESULT 0.88 mg/dL (0.52-1.25); GLUCOSE 124 mg/dL (75-110); SODIUM 148.7 mmol/L (137-145); TOTAL PROTEIN 6.6 g/dL (6.3-8.2)
--- NOTE | 2016-11-28 06:40 | RADIOLOGY REPORT (SQ) ---
EXAM DESCRIPTION: CHEST SINGLE VIEW COMPLETED DATE/TIME: 11/28/2016 6:28 am REASON FOR STUDY: dyspnea COMPARISON: 07/31/2016. EXAM PARAMETERS: NUMBER OF VIEWS: One view. TECHNIQUE: Single frontal radiographic view of the chest acquired. RADIATION DOSE: NA LIMITATIONS: None. FINDINGS: LUNGS AND PLEURA: Mild chronic interstitial lung disease pattern. MEDIASTINUM AND HILAR STRUCTURES: No masses. Contour normal. HEART AND VASCULAR STRUCTURES: Mild enlargement of the cardiac silhouette. Atherosclerosis. BONES: No acute findings. HARDWARE: None in the chest. OTHER: No other significant finding. IMPRESSION: No acute cardiopulmonary findings. Mild chronic cardiac enlargement. TECHNICAL DOCUMENTATION: JOB ID: [id number]
[2016-11-28 06:53] LABS: CREATINE KINASE MB 1.27 ng/mL (<4.55)
[2016-11-28 07:01] LABS: TROPONIN I < 0.012 ng/mL
[2016-11-28 07:09] LABS: VENOUS BLOOD BASE EXCESS 4.5 mmol/L; VENOUS BLOOD HCO3 33.6 mmol/L (20-32); VENOUS BLOOD PH 7.27 (7.30-7.42)
[2016-11-28 07:34] LABS: VENOUS BLOOD PCO2 75.3 mmHg (35-63)
[2016-11-28] MEDS ORDERED: LEVALBUTEROL HCL NEB 0.63 MG/3 ML AMPUL NEB PRN (09:35)
[2016-11-28] MEDS ORDERED: GLUCAGON,HUMAN RECOMB 1 MG INJ IM PRN (09:36)
[2016-11-28] MEDS ORDERED: DEXTROSE 50%-WATER 25 GM/50 ML DISP.SYRIN IV PRN ×2 (09:36)
[2016-11-28] MEDS ORDERED: DEXTROSE 40% GEL 15 GM TUBE PO PRN ×2 (09:36)
[2016-11-28] MEDS: POTASSIUM CHLORIDE 10 MEQ TABLET.SA PO SCH (09:56)
[2016-11-28] MEDS: DILTIAZEM HCL 120 MG CAP.SR.24H PO SCH (09:57)
[2016-11-28] MEDS: METOPROLOL SUCCINATE 50 MG TAB.SR.24H PO SCH (09:58)
[2016-11-28] MEDS: MULTIVITAMIN TABLET PO SCH (09:58)
[2016-11-28] MEDS ORDERED: [UNRECOGNIZED DRUG - REMARK] PO SCH (10:00)
[2016-11-28] MEDS ORDERED: (PENDING PHARMACY ID) (Potassium Chloride [K-Tab Er] 20 MEQ) PO SCH (10:00)
[2016-11-28] MEDS ORDERED: (PENDING PHARMACY ID) (Tiotropium Bromide [Spiriva Respimat] 1 PUFF) IH SCH (10:00)
--- NOTE | 2016-11-28 10:05 | HISTORY AND PHYSICAL E ---
History and Physical NAME: TERE VALERIO : 1960 AGE: 56Y ADMITTED: 11/28/2016 ROOM: ED60 CODE STATUS: FULL CODE. PRIMARY CARE PROVIDER: Dr. Christopher Yu CHIEF COMPLAINT: Shortness of breath. HISTORY OF PRESENT ILLNESS: The patient is a 56-year-old -Spanish female with a past medical history of tobacco dependency and subsequent COPD. The patient presented to the emergency department with a chief complaint of significant shortness of breath. The patient was recently intubated in April due to persistent dyspnea and respiratory failure. The patient complains of shortness of breath which has progressed ever so much over the past 4 days. The patient required multiple breathing treatments at home and was found by EMS to be hypoxic and tachypneic with significant distress. The patient was given Solu-Medrol and 2 DuoNebs en route. The patient also has an underlying history of atrial fibrillation. The patient freely admits to not being fully compliant with her medications, and upon presentation to the emergency department the patient's heart rate was found to be 140. The patient was placed on a BiPAP machine and was given magnesium as well as a total of 6 breathing treatments after arrival. The patient was placed on BiPAP and felt much more comfortable with this. The patient's oxygen saturation improved to 98% on BiPAP settings of 12/8 and with 40% FIO2, and the patient has been referred to the hospitalist for admission and management. PAST MEDICAL HISTORY: Remarkable for: 1. Chronic obstructive pulmonary disease. 2. Previous respiratory failure resulting in intubation. 3. Paroxysmal atrial fibrillation. 4. Previous myocardial infarction by history. 5. Hypertension. 6. Diabetes mellitus, type 2. 7. Osteoarthritis. 8. Anemia. 9. Diastolic dysfunction. PAST SURGICAL HISTORY: Remarkable for: 1. Cardiac catheterization. 2. section. ALLERGIES INCLUDE: ERYTHROMYCIN. HOME MEDICATIONS INCLUDE: 1. Ventolin HFA 1 puff inhalation every 4 hours p.r.n. 2. Eliquis 5 mg p.o. every 12 hours. 3. Symbicort HFA 2 puffs inhalation every 12 hours. 4. Diltiazem XT 120 mg p.o. daily. 5. Lasix 40 mg p.o. daily. 6. Glipizide ER 2.5 mg p.o. daily. 7. Toprol XL 100 mg p.o. daily. 8. Multivitamin 1 tablet p.o. daily. 9. Potassium chloride 20 mEq p.o. daily. 10. Spiriva 1 puff inhalation daily. SOCIAL HISTORY: The patient currently resides at home with a friend. The patient is disabled. Patient does have a long history of tobacco use equating 40 pack years. Patient stopped smoking in June of this year. The patient denies any alcohol abuse or illicit drug use. FAMILY MEDICAL HISTORY: Positive for coronary artery disease, COPD, and hypertension in numerous family members. She denies any family history of pulmonary embolism. REVIEW OF SYSTEMS: CONSTITUTIONAL: The patient denies any fevers, chills, dizziness, weakness, loss of appetite. SKIN: The patient denies any diaphoresis, rashes or bruising. HEENT: Denies any vision change, hearing loss, nasal drainage, sore throat. No headaches. CARDIOVASCULAR: Denies any chest pain, heart palpitations or paroxysmal nocturnal dyspnea. RESPIRATORY: Denies any cough or sputum production. Admits to severe shortness of breath and wheezing. GASTROINTESTINAL: The patient denies any nausea, vomiting, diarrhea, abdominal pain, bloating, hematemesis, constipation, melena, hematochezia. GENITOURINARY: Denies any hematuria, pyuria or dysuria. MUSCULOSKELETAL: Denies any acute or chronic joint pains. NEUROLOGIC: No seizures, tremors or loss of consciousness. HEMATOLOGICAL: Denies any paresh bleeding or easy bruising. PSYCHIATRIC: Denies suicidal or homicidal ideations. PHYSICAL EXAMINATION: GENERAL: The patient is a well-developed, well-nourished 56-year-old -Spanish female who is awake, alert, and oriented to person, place, time, and situation. She is verbal and conversational. She does not appear to be in any acute distress. She no longer appears tachypneic. VITAL SIGNS: Temperature is 97.9, pulse 135, respirations 20, blood pressure is 127/79, and oxygen saturation is 98% on 40% FIO2. SKIN: Warm and dry. No rash. She is not diaphoretic. HEENT: Pupils equal, round and reactive to light and accommodation. Conjunctiva is pink. Sclera is nonicteric. There is no JVP. Tongue is midline. NECK: Supple. No palpable lymphadenopathy or thyromegaly. CARDIOVASCULAR: Heart is tachycardic but sounds regular. No rub. CHEST: Diminished, symmetrical, currently unlabored. ABDOMEN: Soft, nontender, nondistended. Bowel sounds are present. No palpable organomegaly. BACK: No CVA tenderness or sacral edema. EXTREMITIES: No clubbing, cyanosis, edema, +2 pedal pulses noted bilaterally. PSYCHIATRIC: Appropriate affect, pleasant mood. NEUROLOGIC: Cranial nerves 2-12 are intact. DIAGNOSTICS: Lab values are as follows. Hematology obtained on 11/28/2016: WBCs are 8.3, hemoglobin is 11.6, hematocrit is 37.7, platelet count is 224,000. VBG obtained on 11/28/2016 has a pH of 7.27, PCO2 is 75.3, bicarb is 33.6. Chemistry obtained on 11/28/2016: Sodium is 148, potassium 4, chloride 106, carbon dioxide 34, BUN 20, creatinine 0.8, glucose 124, calcium is 9, bilirubin 0.7, AST 50, ALT 67, alk phos 81. CK 110, CK MB is 1.67, troponin 0.012. Total protein 6.6, albumin 3.7. Chest x-ray obtained on 11/28/2016 reveals no acute cardiopulmonary findings, mild chronic cardiac enlargement. IMPRESSION AND PLAN: 1. Chronic obstructive pulmonary disease exacerbation. Will admit the patient to inpatient IMCU. Will schedule nebulizers and continue home long-acting inhalers and steroid therapy and follow. 2. Acute on chronic hypoxemic and hypercapnic respiratory failure. Will continue BiPAP. Will repeat VBG and adjust accordingly. Given the patient's persistent symptoms, will obtain D-dimer. If positive will send for CTA. 3. Paroxysmal atrial fibrillation. It appears the patient is actually sinus tach on the monitor; however, will obtain EKG at this time. Will resume home medications. It appears the patient has missed several doses. This in combination with nebulizers may have contributed to this. Will follow. Will resume the patient's anticoagulation. 4. Diastolic dysfunction. The patient does not appear volume overloaded at this time. She actually may be a little on the dry side. Will hold diuretics for now and follow. 5. Diabetes mellitus, type 2. Will resume home medications as well as sliding-scale coverage. 6. DVT prophylaxis. The patient will be resumed on Eliquis. DISPOSITION: THE PATIENT IS A FULL CODE. Pending the patient's symptomatology and diagnostic findings, will re-evaluate in the a.m. The patient will be admitted to inpatient [facility]. The patient's expected length of stay will surpass 2 midnights. Time spent on this admission, including assessment/plan, physical examination, patient education, and review of previous records, is 40 minutes. DICTATING PHYSICIAN: PRO NAIDU NP [id number] [id number] PHY#: [id number] ID: [id number] JOB#: [id number] ACCT: [id number] cc: >
[2016-11-28] MEDS: TIOTROPIUM BROMIDE DPI 5 CAP/KIT (18 MCG/CAP) IH SCH (10:57)
[2016-11-28] MEDS: BUDESONIDE/FORMOTEROL 160-4.5 MCG 60 PUFF/6 GM MDI IH SCH ×2 (10:57→22:24)
[2016-11-28] MEDS: GLIPIZIDE XL 2.5 MG TAB.ER.24 PO SCH (10:58)
[2016-11-28] MEDS: APIXABAN 5 MG TABLET PO SCH ×2 (10:58→22:23)
--- NOTE | 2016-11-28 11:03 | EKG REPORT ---
SEVERITY:- ABNORMAL ECG - ATRIAL FLUTTER WITH MOSTLY 2:1 CONDUCTION BORDERLINE RIGHT AXIS DEVIATION CONSIDER LEFT VENTRICULAR HYPERTROPHY BORDERLINE ST ELEVATION, INFERIOR LEADS PROLONGED QT INTERVAL : Confirmed by: Kelby Grover 28-Nov-2016 11:02:07
--- NOTE | 2016-11-28 11:03 | EKG REPORT ---
SEVERITY:- ABNORMAL ECG - A. ALUTTER WITH 2:1 CONDUCTION PROBABLE LEFT ATRIAL ABNORMALITY RIGHT AXIS DEVIATION CONSIDER LEFT VENTRICULAR HYPERTROPHY NONSPECIFIC T ABNORMALITIES, INFERIOR LEADS : Confirmed by: Kelby Grover 28-Nov-2016 11:03:02
[2016-11-28 11:31] LABS: VENOUS BLOOD BASE EXCESS 5.5 mmol/L; VENOUS BLOOD HCO3 34.2 mmol/L (20-32); VENOUS BLOOD PH 7.29 (7.30-7.42)
[2016-11-28 11:35] LABS: VENOUS BLOOD PCO2 72.2 mmHg (35-63)
[2016-11-28] MEDS: LEVALBUTEROL HCL NEB 1.25 MG/3 ML AMPUL NEB SCH ×2 (13:40→20:50)
[2016-11-28] MEDS ORDERED: HEPARIN SOD (PORCINE) 5,000 UNIT/ML 1 ML SYRINGE SUBCUT SCH (14:00)
[2016-11-28] MEDS: DILTIAZEM HCL/D5W 125 MG/125 ML RTUINJ IV PRN (14:44)
[2016-11-28] MEDS: METHYLPREDNISOLONE INJ 125 MG/2 ML SDV IV SCH ×2 (14:44→22:23)
[2016-11-29 05:29] LABS: ARTERIAL BLOOD BASE EXCESS 5.4 mmol/L; ARTERIAL BLOOD O2 SATURATION 95.9 % (94-98)
[2016-11-29 06:23] LABS: ABSOLUTE LYMPHOCYTES (AUTO) 0.6 10^3/uL (0.5-4.7); ABSOLUTE MONOCYTES (AUTO) 0.2 10^3/uL (0.1-1.4); ABSOLUTE NEUT (AUTO) 9.3 10^3/uL (1.7-8.2); BASOPHILS % (AUTO) 0.2 % (0-2); HEMATOCRIT 36.9 % (36.0-47.0); HEMOGLOBIN 11.3 g/dL (12.0-15.5); LYMPHOCYTES % (AUTO) 5.6 % (13-45); MEAN CORPUSCULAR HEMOGLOBIN 24.4 pg (27.0-33.4); MEAN CORPUSCULAR HGB CONC 30.5 g/dL (32.0-36.0); MEAN CORPUSCULAR VOLUME 80 fl (80-97); RED BLOOD COUNT 4.62 10^6/uL (3.72-5.28); RED CELL DISTRIBUTION WIDTH 17.5 % (11.5-14.0); SEGMENTED NEUTROPHILS % (AUTO) 92.2 % (42-78); WHITE BLOOD COUNT 10.1 10^3/uL (4.0-10.5)
[2016-11-29 06:41] LABS: ALANINE AMINOTRANSFERASE 63 U/L (9-52); ALBUMIN 3.6 g/dL (3.5-5.0); ALKALINE PHOSPHATASE 72 U/L (38-126); ANION GAP 9 (5-19); ASPARTATE AMINO TRANSFERASE 34 U/L (14-36); BILIRUBIN,DIRECT 0.3 mg/dL (0.0-0.4); BILIRUBIN,TOTAL 0.7 mg/dL (0.2-1.3); BLOOD UREA NITROGEN 20 mg/dL (7-20); CALCIUM 9.5 mg/dL (8.4-10.2); CARBON DIOXIDE 31 mmol/L (22-30); CHLORIDE 105 mmol/L (98-107); CREATININE RESULT 0.66 mg/dL (0.52-1.25); GLUCOSE 153 mg/dL (75-110); MAGNESIUM 2.2 mg/dL (1.6-2.3); POTASSIUM 4.8 mmol/L (3.6-5.0); SODIUM 145.3 mmol/L (137-145); TOTAL PROTEIN 6.6 g/dL (6.3-8.2)
[2016-11-29] MEDS: METHYLPREDNISOLONE INJ 125 MG/2 ML SDV IV SCH ×3 (07:02→21:50)
--- NOTE | 2016-11-29 08:21 | RADIOLOGY REPORT (SQ) ---
EXAM DESCRIPTION: CHEST SINGLE VIEW COMPLETED DATE/TIME: 11/29/2016 8:08 am REASON FOR STUDY: acute/chronic resp failure COMPARISON: 11/28/2016 EXAM PARAMETERS: NUMBER OF VIEWS: One view. TECHNIQUE: Single frontal radiographic view of the chest acquired. RADIATION DOSE: NA LIMITATIONS: None. FINDINGS: LUNGS AND PLEURA: No opacities, masses or pneumothorax. No pleural effusion. MEDIASTINUM AND HILAR STRUCTURES: No masses. Contour normal. HEART AND VASCULAR STRUCTURES: Stable mild cardiomegaly. No vascular congestion. BONES: No acute findings. HARDWARE: EKG leads overlie the chest. OTHER: No other significant finding. IMPRESSION: NO ACUTE RADIOGRAPHIC FINDING IN THE CHEST. Stable mild cardiomegaly. TECHNICAL DOCUMENTATION: JOB ID: [id number]
[2016-11-29] MEDS: LEVALBUTEROL HCL NEB 1.25 MG/3 ML AMPUL NEB SCH ×3 (08:53→20:44)
[2016-11-29] MEDS ORDERED: DILTIAZEM HCL INJ 25 MG/5 ML VIAL IV ONE (10:30)
[2016-11-29] MEDS: APIXABAN 5 MG TABLET PO SCH ×2 (10:51→21:50)
[2016-11-29] MEDS: DILTIAZEM HCL 120 MG CAP.SR.24H PO SCH (10:51)
[2016-11-29] MEDS: MULTIVITAMIN TABLET PO SCH (10:52)
[2016-11-29] MEDS: METOPROLOL SUCCINATE 50 MG TAB.SR.24H PO SCH (10:52)
[2016-11-29] MEDS: GLIPIZIDE XL 2.5 MG TAB.ER.24 PO SCH (10:52)
[2016-11-29] MEDS: POTASSIUM CHLORIDE 10 MEQ TABLET.SA PO SCH (10:52)
[2016-11-29] MEDS: BUDESONIDE/FORMOTEROL 160-4.5 MCG 60 PUFF/6 GM MDI IH SCH ×2 (10:53→21:50)
[2016-11-29] MEDS: TIOTROPIUM BROMIDE DPI 5 CAP/KIT (18 MCG/CAP) IH SCH (10:54)
--- NOTE | 2016-11-29 14:02 | PROGRESS NOTE E ---
Progress Note NAME: TERE VALERIO : 1960 AGE: 56Y DATE: 11/29/2016 ROOM: 331 SUBJECTIVE: The patient is currently sitting up on the side of the bed. She was seen in conjunction with Dr. Talbot. The patient states that she does feel better today. The patient appears more relaxed. The patient's Cardizem drip was actually stopped overnight given hypotension; however, her heart rate is ever increasing at this time. She remains in A-fib. The patient denies any nausea or vomiting. No diarrhea, dizziness, chest pain, mainly dyspnea. The patient has been producing some whitish sputum, but the patient had no radiographic evidence of pneumonia, no white count, no fever. Therefore, antibiotics have yet been deferred and the patient has not voiced any other concerns at this time. REVIEW OF SYSTEMS: The rest of the review of systems is negative. MEDICATIONS: Medications have been reviewed. OBJECTIVE: GENERAL: The patient is a 56-year-old female who is awake, alert, and oriented to person, place, time, and situation. She is verbal and conversational and does not appear to be in any acute distress. VITAL SIGNS: Temperature is 97.2, pulse 140, respirations 20, blood pressure is 123/62, oxygen saturation is 100% on 25% FIO2 of BiPAP. SKIN: Warm and dry. No rash. She is not diaphoretic. HEENT: Pupils equal, round, and reactive to light and accommodation. Conjunctivae is pink. NECK: No JVD. CARDIOVASCULAR SYSTEM: Heart is regular. There is no murmur or rub. CHEST: The patient does have diminished, very coarse lung sounds, symmetrical, labored. ABDOMEN: Soft, nontender, and nondistended. BACK: No CVA tenderness or sacral edema. EXTREMITIES: No clubbing, cyanosis, edema. PSYCHIATRIC: Appropriate affect, pleasant mood. DIAGNOSTIC DATA: Lab values are as follows: Hematology obtained on 11/29/2016: WBC's are 10.1; hemoglobin is 11.3; hematocrit is 36.9; platelet count 225,000. obtained on 11/29/2016: A pH of 7.41, pCO2 is 50, PO2 is 80, bicarb 31 and this was obtained on 25% FIO2. Chemistries obtained on 11/29/2016: Sodium is 145, potassium 4.8, chloride is 105, carbon dioxide 31, BUN 20, creatinine is, glucose 123, calcium is 9.5, magnesium is 3.2, bilirubin is 0.7, AST 34, ALT is 63, alk phos 72, total protein 6.6, albumin 3.6. IMPRESSION AND PLAN: 1. CHRONIC OBSTRUCTIVE PULMONARY DISEASE EXACERBATION. Will continue nebulizers, long acting inhalers, and steroid therapy and follow. 2. ACUTE ON CHRONIC HYPOXEMIC AND HYPERCAPNIC RESPIRATORY FAILURE. Will continue BiPAP as needed. Overall, this is much improved. The patient has no findings of infiltrate or pneumonia. 3. PAROXYSMAL ATRIAL FIBRILLATION. THE PATIENT IS CURRENTLY IN RAPID VENTRICULAR RESPONSE. Will give a bolus and resume Cardizem drip and follow. 4. DIASTOLIC DYSFUNCTION. THE PATIENT DOES NOT APPEAR OVERLOADED AT THIS TIME. Will hold any diuretic therapy and follow. 5. DIABETES MELLITUS TYPE 2. Will continue home medications as well as sliding-scale coverage. 6. DVT PROPHYLAXIS. Patient has been resumed on Eliquis. DISPOSITION: The patient is a FULL CODE. Pending the patient's symptomatology and diagnostic findings, will reevaluate in the a.m. TIME: Time spent on this followup including assessment, plan, physical examination, patient education, and speciality collaboration was 25 minutes. DICTATING PHYSICIAN: PRO NAIDU NP [id number] PHY#: [id number] ID: [id number] JOB#: [id number] ACCT: [id number] cc: > [facility]
[2016-11-29] MEDS: ACETAMINOPHEN 325 MG TABLET PO PRN (21:50)
[2016-11-30] MEDS: METHYLPREDNISOLONE INJ 125 MG/2 ML SDV IV SCH ×3 (05:16→21:44)
[2016-11-30 06:01] LABS: ANION GAP 9 (5-19); BLOOD UREA NITROGEN 28 mg/dL (7-20); CALCIUM 9.4 mg/dL (8.4-10.2); CARBON DIOXIDE 30 mmol/L (22-30); CHLORIDE 107 mmol/L (98-107); CREATININE RESULT 0.72 mg/dL (0.52-1.25); GLUCOSE 178 mg/dL (75-110); MAGNESIUM 2.3 mg/dL (1.6-2.3); SODIUM 145.6 mmol/L (137-145)
[2016-11-30] MEDS: LEVALBUTEROL HCL NEB 1.25 MG/3 ML AMPUL NEB SCH ×3 (08:43→20:11)
--- NOTE | 2016-11-30 08:58 | PROGRESS NOTE E ---
Progress Note NAME: TERE VALERIO : 1960 AGE: 56Y DATE: 11/30/2016 ROOM: 331 SUBJECTIVE: The patient is sitting on the side of the bed. She is doing a crossword puzzle when I round. The patient states that she is still very short of breath. When she takes the BiPAP off to eat she feels distressed. The patient does admit to some sputum production but on visual exam it is white to clear. The patient has been afebrile. Her blood pressures have been in a good range, although overnight apparently her systolic blood pressures went down to the 80s and, therefore, they stopped her Cardizem drip and subsequently this morning her heart rate is 140. The patient does not voice any other concerns at this time. BRIEF HISTORY: The patient is a 56-year-old -B[place] female that is well known to the hospitalist service given severe COPD. The patient was last intubated in the fall of 2015 but has had visits since then. The patient quit smoking back in August and has had continued ongoing symptoms. Upon presentation to the emergency department the patient's PCO2 was found to be 75, bicarb 33.6, and pH of 7.26. The patient was placed on BiPAP and the patient's ABG the morning of the was overall much improved; however, the patient's symptoms of persistent tachypnea, dyspnea and air hunger do persist. Repeat chest x-ray does not show any area of infiltrate suspicious for pneumonia and no evidence of volume overload in spite of having [id number] rapid ventricular response, and the patient does not voice any other concerns at this time. The patient has been seen by Dr. Talbot with pulmonology as well. REVIEW OF SYSTEMS: The rest of the review of systems is negative. MEDICATIONS: Medications have been reviewed. OBJECTIVE: GENERAL: The patient is a 56-year-old -B[place] female who is awake, alert, and oriented to person, place, time, and situation. She is verbal and conversational. She does appear to be in some mild acute distress. VITAL SIGNS: Temperature is 97.2, pulse 139, respirations 17, blood pressure is 117/85, oxygen saturation is 98% on 40% FIO2 on BiPAP. SKIN: Warm and dry. No rash, not diaphoretic. HEENT: Pupils are equal, round and reactive to light and accommodation. Conjunctivae pink. No JVP. BiPAP mask in place. CARDIOVASCULAR: Heart is tachycardic, irregularly irregular. There is no rub. CHEST: Severely diminished throughout to auscultation, symmetrical, labored. ABDOMEN: Soft, nontender, nondistended. BACK: No CVA tenderness or sacral edema. EXTREMITIES: No clubbing, cyanosis, edema. PSYCHIATRIC: Appropriate affect, pleasant mood. DIAGNOSTICS: Lab values are as follows. Hematology obtained on 11/29/2016: WBCs are 10.1, hemoglobin is 11.3, hematocrit 36.9, platelet count is 225,000. Chemistry obtained on 11/30/2016: Sodium is 145, potassium 5, chloride 107, carbon dioxide 30, BUN 28, creatinine 0.72, glucose 178, calcium 9.4, magnesium is 2.3. IMPRESSION AND PLAN: 1. ACUTE CHRONIC OBSTRUCTIVE PULMONARY DISEASE EXACERBATION. Will continue nebulizers, long-acting inhalers, steroids. Do appreciate Pulmonology input with this. Have added Singulair at bedtime. 2. ACUTE ON CHRONIC HYPOXEMIC AND HYPERCAPNIC RESPIRATORY FAILURE. Will continue BiPAP as needed. Overall gases look much improved. Chest x-ray has no findings of infiltrate or pneumonia; however, will add Mucinex due to mild sputum production. I have deferred antibiotic therapy given the patient's lack of fever, white count or findings on chest x-ray. This is discussed with the patient daily. 3. PAROXYSMAL ATRIAL FIBRILLATION WITH RAPID VENTRICULAR RESPONSE. This has been very difficult to control. Patient did not respond to bolus dosing. Will most likely need to be loaded with digoxin; however, will consult Cardiology to aid in the management of this. 4. DIASTOLIC DYSFUNCTION. The patient does not appear overloaded at this time. Will continue to hold diuretic therapy as the patient may actually be a little on the dry side. 5. DIABETES MELLITUS, TYPE 2. Will continue home medications as well as sliding-scale coverage. 6. DVT PROPHYLAXIS. The patient is resumed on her home Eliquis that she takes for PAF. DISPOSITION: THE PATIENT IS A FULL CODE. Pending the patient's symptomatology and diagnostic findings, will re-evaluate in the a.m. Time spent on this followup, including assessment/plan, physical examination, patient education and specialist collaboration, is 30 minutes. DICTATING PHYSICIAN: PRO NAIDU NP [id number] [id number] PHY#: [id number] ID: [id number] JOB#: [id number] ACCT: [id number] cc: >
--- NOTE | 2016-11-30 09:04 | Physician Advisory Note ---
Physician Advisor ProgressNote .: Pursuant to the plan for [facility], I have reviewed the medical record for this patient. Physician Advisor Statement: Please consider documenting 1. "Acute hypernatremia, suspect due to ____" 2. "chronic ___ type anemia" - nutritional Fe defic?, or chr blood loss Fe defic, or ...? Thanks! CK
[2016-11-30] MEDS: METOPROLOL SUCCINATE 50 MG TAB.SR.24H PO SCH (09:29)
[2016-11-30] MEDS: DILTIAZEM HCL 120 MG CAP.SR.24H PO SCH ×2 (09:29→21:43)
[2016-11-30] MEDS: GUAIFENESIN 600 MG TABLET.SA PO SCH ×2 (09:30→21:52)
[2016-11-30] MEDS: POTASSIUM CHLORIDE 10 MEQ TABLET.SA PO SCH (09:30)
[2016-11-30] MEDS: GLIPIZIDE XL 2.5 MG TAB.ER.24 PO SCH (09:30)
[2016-11-30] MEDS: MULTIVITAMIN TABLET PO SCH (09:30)
[2016-11-30] MEDS: TIOTROPIUM BROMIDE DPI 5 CAP/KIT (18 MCG/CAP) IH SCH (09:31)
[2016-11-30] MEDS: BUDESONIDE/FORMOTEROL 160-4.5 MCG 60 PUFF/6 GM MDI IH SCH ×2 (09:31→21:45)
[2016-11-30] MEDS: APIXABAN 5 MG TABLET PO SCH ×2 (09:32→21:43)
[2016-11-30] MEDS: FLUTICASONE NASAL SPRAY 50 MCG/SPRY 120 SPRAY/16 GM NASL SCH ×2 (10:25→21:44)
[2016-11-30] MEDS ORDERED: DIGOXIN INJ 0.5 MG/2 ML AMPULE IV ONE (11:30)
[2016-11-30] MEDS: INSULIN LISPRO 100 UNIT/ML 3 ML VIAL SUBCUT PRN ×2 (12:19→21:44)
[2016-11-30] MEDS ORDERED: LEVOFLOXACIN 750 MG/D5W RTU 750 MG/150 ML RTUPB IV ONE (20:00)
--- NOTE | 2016-11-30 20:59 | CONSULTATION REPORT E ---
Consultation Report NAME: TERE AVLERIO : 1960 AGE: 56Y DATE: 11/30/2016 331 A TO: ANIL BA M.D. FROM: Requesting Physician REASON FOR CONSULTATION: Atrial fibrillation with rapid ventricular response. HISTORY: The patient is a 56-year-old female with a past history of tobacco dependency who states that a few months ago, she quit smoking and history of COPD. She presented to the emergency room with a complaint of significant shortness of breath which started about 4 days ago. She also has been having wheezing and PND and leg edema, but no orthopnea. She denies any fevers, chills or rigors. She is having a cough productive of yellow sputum. The patient has a past history of paroxysmal atrial fibrillation, but the patient on admission of 05/16/2016 was in atrial flutter due to influenza A infection and also Haemophilus influenzae as a secondary pathogen for the pneumonia. The patient is now back in atrial fibrillation with rapid ventricular response. The patient was found by the EMS to be hypoxic with significant distress at home with accessory muscles of respiration in use. The patient was given Solu-Medrol and 2 DuoNeb treatments en route. The patient's heart rate was initially found to be 140 in atrial fibrillation. The patient is on Eliquis which she states she has been taking. She is also on Toprol-XL 100 mg p.o. daily along with now Cardizem being started at 120 mg p.o. daily. Earlier on 11/28/2016 she was on a Cardizem drip which was stopped, but the patient's heart rate is still fast. She denies any chest pain or discomfort. She at present has no orthopnea. She has occasional episodes of PND and also leg edema. She also has significant wheezing and the patient was placed in the emergency room on 11/28/2016 on BiPAP which she is still using. She also was given magnesium for a low magnesium level and she also had many breathing treatments. With the BiPAP setting of 12 by 8 and with 40% FIO2, her O2 saturations improved to 98%. But the patient again now went into atrial fibrillation with rapid ventricular response which is most likely secondary to COPD with bronchitis. The patient denies any fevers, chills or rigors. She states she has palpitations, but no near syncope or syncope. PAST MEDICAL HISTORY: 1. The patient has a past history of coronary artery disease, history of [place]. She states she had a cardiac catheterization, the results are not known. She had a stress test in 10/2014 which was negative for ischemia or [place] or scar. Her echocardiogram at that time showed an LV ejection fraction was greater than 55% with no wall motion abnormality. The patient has had no recent anginal symptoms in many months. 2. She has a past history of congestive heart failure secondary to atrial fibrillation with rapid ventricular response and LV diastolic dysfunction. 3. She has a history of COPD and she smoked until a few months ago, when she stopped smoking. 4. She also has a history of sleep apnea, but does not wear CPAP. 5. History of diabetes mellitus type 2, noninsulin dependent. 6. She has no history of thyroid disorder. 7. There is no history of TIA or CVA. She is on Eliquis with no evidence of bleeding. 8. The patient has no chronic kidney disease. 9. She has a history of hypertension. 10. She also has a history of hyperlipidemia. 11. As mentioned earlier, she had a previous respiratory failure resulting intubation. This was in 04/2016 when she developed influenza A infection pneumonia and also had a lingular infiltrate which grew Haemophilus influenzae as a secondary pathogen. At that time, there was a problem even though the pneumonia had cleared, there was a problem taking her off the ventilator since her heart rate would go up and then her saturation dropped and her heart rate where she was placed on Cardizem 15 mg/h at that time. ALLERGIES: She is allergic to ERYTHROMYCIN. FAMILY HISTORY: Positive for coronary artery disease in both parents, COPD, hypertension in numerous family members. She has no family history of pulmonary embolism. REVIEW OF SYMPTOMS: CONSTITUTIONAL: Denies any fever, chills, or rigors. There is no dizziness, weakness, loss of appetite. SKIN: The patient denies any diaphoresis, rashes, bruising. There is no skin cancer. There is no psoriasis. HEAD: No history of headaches or head injury. EYES: No history of amblyopia or diplopia. No history of amaurosis fugax. EARS: No history of tinnitus. No history of vertigo. No history of recurrent ear infections. NOSE: No history of nasal polyposis. No history of nosebleeds. No history of deviated nasal septum. MOUTH: No history of altered taste sensation. No history of ulcers in the mouth. No bleeding from the gums. THROAT: No history of odynophagia or dysphagia. No history of recurrent sore throats. NECK: No painful or painless swelling of the neck. No goiter. There is no symptoms of C-spine arthritis. LUNGS: History of COPD. The patient since the last 4 days has been having progressively increasing shortness of breath with wheezing and cough productive of yellow sputum. Most likely, the patient has an acute exacerbation of COPD with bronchitis. Chest x-ray does not show any infiltrate. She has no history of pulmonary embolism. No history of hemoptysis. No history of pleuritic chest pain. She has a history of sleep apnea, but does not use CPAP. CARDIAC: History of coronary artery disease, past history of [place]. History of cardiac catheterization, findings unknown since we cannot get a report. She has a history of hypertension, a past history of congestive heart failure secondary to atrial fibrillation with rapid ventricular response and also LV diastolic dysfunction. She has a past history of paroxysmal atrial fibrillation, but in 04/2016 when she was admitted with Haemophilus influenzae pneumonia, she was in atrial flutter. It seems that the patient is back in atrial fibrillation now. The patient is on Toprol-XL 100 mg p.o. daily; Cardizem CD 120 mg p.o. daily; and also Eliquis 5 mg p.o. b.i.d. She has wheezing. She has no orthopnea. She has PND and also some leg edema which is now much improved. She has no history of syncope. She has palpitations due to atrial fibrillation with rapid ventricular response. There are no anginal symptoms for many months. GASTROINTESTINAL: There is no history of GERD or peptic ulcer disease. No history of fatty food intolerance. No history of GI bleed. No history of altered bowel movements. No abdominal pain. MUSCULOSKELETAL: She has a history of osteoarthritis but no collagen vascular disease. RENAL: No history of symptoms of UTI. No hematuria, pyuria or dysuria. No history of chronic kidney disease. ENDOCRINE: History of diabetes mellitus type 2, noninsulin dependent and no history of polydipsia or polyuria. No history of thyroid disease. No history of heat or cold intolerance. No history of hirsutism. No history of excessive sweating. CENTRAL NERVOUS SYSTEM: No history of TIA or CVA. No history of seizures, headaches or migraines. No history of gait imbalance. PSYCHIATRIC: No history of anxiety or depression. No history of suicidal ideation. No history of homicidal ideation. VASCULAR: No history of calf or buttock claudication. No history of DVT. HEMATOLOGIC: She has a past history of anemia. No history of bleeding diathesis or clotting disorders. MEDICATIONS: 1. Tylenol 650 mg p.o. every 8 hours p.r.n. 2. Eliquis 5 mg p.o. every 12 hours. 3. Symbicort HFA 160/4.5 mcg inhaler, 2 puffs every 12 hours. 4. Hypoglycemic precautions with glucose 40%, 15 g p.o. and 30 g p.o. respectively p.r.n. hypoglycemia. 5. Dextrose 50%, 12.5 g and 25 g IV p.r.n. hypoglycemia. 6. Diltiazem extended release 120 mg p.o. daily. 7. Fluticasone propriate 2 sprays nasally every 12 hours. 8. Glipizide 2.5 mg p.o. daily. 9. Glucovance 1 mg IM p.r.n. hyperglycemia. 10. Mucinex 1200 mg p.o. every 12 hours. 11. Accu-Cheks a.c. t.i.d. with sliding scale insulin regular insulin coverage. 12. Xopenex 0.63 mg nebulizer treatment every 6 hours. 13. Methylprednisolone, that is Solu-Medrol, 80 mg IV every 8 hours. 14. Metoprolol 100 mg p.o. daily. This is extended release, Toprol-XL. 15. Singulair 10 mg p.o. nightly. 16. Multivitamin 1 tablet p.o. daily. 17. Potassium 20 mEq p.o. daily. 18. Spiriva HandiHaler 1 capsule inhalation daily. DISPOSITION: The patient is a FULL CODE. She states her daughter is her surrogate healthcare decision maker. PHYSICAL EXAMINATION: VITAL SIGNS: On examination when I saw her around 1110 hours, she had a temperature of 97.2 degrees Fahrenheit, that is afebrile. Her pulse was 141 beats per minute and sometimes goes down to 120 atrial fibrillation with rapid ventricular response. The patient's blood pressure is 128/66, respirations 24 per minute, O2 saturation is 100% on BiPAP with an FIO2 of 40% HEENT: Head is atraumatic and normocephalic. Eyes; pupils are equal, round, regular, reactive to light and accommodation. Extraocular movements are normal. There is no conjunctival pallor. There is no scleral icterus. Ears; tympanic membranes are intact. External auditory canals are clear. Nose; there is no deviated nasal septum. There is no inflammation of the nasal mucous membranes. There are no nasal polyps. Mouth; mucous membranes of the mouth are moist. Tongue is moist. There are no ulcers. There is no bleeding from the gums. Throat; there is no redness of the oropharynx. There are no exudates in the throat. SKIN: There are no skin rashes or petechia or ecchymosis. There are no skin lesions. NECK: Supple. There is no JVD. Carotids are equal. There is no bruit. There is no goiter. There is no lymphadenopathy. Trachea is central. LUNGS: Show accessory muscles of respiration use. The patient is on BiPAP. There is diminished air entry and prolonged expiration, along with wheezing and rhonchi bilaterally. There are no rales of CHF. On percussion, there is hyperresonance. HEART: S1 and S2 are heard. There is no S3 gallop. There is no S4 gallop. S1 of variable intensity. There is a systolic murmur at the left sternal border at the apex. There is no rub. ABDOMEN: Soft, nontender. There is no hepatosplenomegaly. Bowel sounds are well heard. EXTREMITIES: Femorals are diminished. There are no femoral bruits. Leg pulses are diminished. There is trace pedal edema. There is no DVT or cellulitis. There is no calf tenderness. There is no cyanosis or clubbing. CENTRAL NERVOUS SYSTEM: The patient is conscious, slightly drowsy, but moves all 4 extremities. PSYCHIATRIC: The patient does not appear to be agitated or depressed, but is in respiratory distress with accessory muscles or respiration in use. IMAGING: The patient's chest x-ray is negative for any infiltrates or congestive heart failure. There is mild cardiomegaly. The patient's chest x-ray on 11/28/2016 shows no acute cardiopulmonary findings, mild chronic cardiac enlargement. ECHOCARDIOGRAM: The previous echo mentioned was done on 11/29/2016. ELECTROCARDIOGRAM: Atrial flutter with 2:1 conduction, borderline right axis deviation, consider left ventricular hypertrophy, borderline ST elevation in inferior leads. Prolonged QT interval. At times, the patient seems to be in atrial fibrillation also. LABORATORY: Sodium 145.6, potassium 5.0, chloride 107, CO2 of 30, BUN 28, creatinine 0.72, GFR is greater than 60, glucose 178, calcium 9.4, magnesium 2.3. D-dimer is less than 0.27. Her ABG yesterday showed pH 7.41, pCO2 of 15.1, pO2 of 81.1, and O2 saturations 95% with FIO2 of 25%. White count yesterday was 10,100, hemoglobin 11.3, hematocrit 36.9, and platelet count 235,000. IMPRESSION: 1. Atrial flutter/fibrillation with rapid ventricular response most likely secondary to the patient's acute exacerbation of COPD and bronchitis. The patient already is on Eliquis 5 mg p.o. b.i.d. Would continue. Will give 1 dose of digoxin 0.125 mg IV push now. Will increase the patient's Cardizem CD to 120 mg p.o. every 12 hours. Will hold the Toprol-XL until the patient's wheezing subsides. 2. Acute exacerbation of COPD. Continue antibiotics. Would start the patient on antibiotics. Continue respiratory treatments. Continue steroids. 3. Acute bronchitis. Would recommend strongly to start the patient on antibiotics intravenously. 4. History of sleep apnea, not on CPAP at home. 5. History of paroxysmal atrial fibrillation, now patient in atrial flutter/fibrillation. 6. Coronary artery disease, history of myocardial infarction in the past. History of cardiac catheterization, findings unknown. No anginal symptoms for a long time. 7. Hypertension. 8. Diabetes mellitus type 2, noninsulin dependent at home but the patient now is on insulin in the hospital. Because of the steroids, the blood sugars have been going up. 9. Osteoarthritis. 10. Past history of tobacco abuse for a long time, has quit for some months. RECOMMENDATIONS: 1. As mentioned earlier, would stop the patient's Toprol-XL and would increase the patient's Cardizem CD to 120 mg p.o. every 12 hours. 2. Will add digoxin. 3. Would strongly recommend along with the respiratory treatments with the BiPAP and the oxygen to start the patient on antibiotics. TIME SPENT: Note, 40 minutes spent on this patient with more than 50% of the time spent on direct patient care. Note, medications have been reviewed and adjusted as mentioned earlier. Discussed with hospitalist taking care of the patient and other caregiving providers including the nurses and formulated the plan of care. Note that the patient is a FULL CODE and her daughter is her healthcare decision maker. Note this patient's care involved highly complex medical decision making. We will check an echo once the heart rate comes down. DICTATING PHYSICIAN: ANIL BA M.D. [id number] PHY#: [id number] ID: [id number] JOB#: [id number] ACCT: [id number] cc:ANIL BA M.D. >
[2016-11-30] MEDS: ACETAMINOPHEN 325 MG TABLET PO PRN (21:42)
[2016-11-30] MEDS: MONTELUKAST SODIUM 10 MG TABLET PO SCH (21:43)
[2016-12-01 06:12] LABS: HEMATOCRIT 37.6 % (36.0-47.0); HEMOGLOBIN 11.4 g/dL (12.0-15.5); HGB HCT DIFFERENCE -3.4; MEAN CORPUSCULAR HEMOGLOBIN 24.4 pg (27.0-33.4); MEAN CORPUSCULAR HGB CONC 30.3 g/dL (32.0-36.0); MEAN CORPUSCULAR VOLUME 80 fl (80-97); RED BLOOD COUNT 4.68 10^6/uL (3.72-5.28); RED CELL DISTRIBUTION WIDTH 17.8 % (11.5-14.0); WHITE BLOOD COUNT 9.2 10^3/uL (4.0-10.5)
[2016-12-01 06:19] LABS: ALANINE AMINOTRANSFERASE 122 U/L (9-52); ALBUMIN 3.6 g/dL (3.5-5.0); ALKALINE PHOSPHATASE 70 U/L (38-126); ANION GAP 10 (5-19); ASPARTATE AMINO TRANSFERASE 58 U/L (14-36); BILIRUBIN,DIRECT 0.3 mg/dL (0.0-0.4); BILIRUBIN,TOTAL 0.6 mg/dL (0.2-1.3); BLOOD UREA NITROGEN 31 mg/dL (7-20); CALCIUM 9.4 mg/dL (8.4-10.2); CARBON DIOXIDE 29 mmol/L (22-30); CHLORIDE 107 mmol/L (98-107); CREATININE RESULT 0.79 mg/dL (0.52-1.25); GLUCOSE 161 mg/dL (75-110); MAGNESIUM 2.3 mg/dL (1.6-2.3); SODIUM 146.2 mmol/L (137-145); TOTAL PROTEIN 6.2 g/dL (6.3-8.2)
[2016-12-01] MEDS: METHYLPREDNISOLONE INJ 125 MG/2 ML SDV IV SCH (06:31)
[2016-12-01 06:44] LABS: BAND NEUTROPHILS % (MANUAL) 1 % (3-5); BASOPHILS % (MANUAL) 0 % (0-2); EOSINOPHILS % (MANUAL) 0 % (0-6); LYMPHOCYTES % (MANUAL) 11 % (13-45); TOTAL CELLS COUNTED 100
[2016-12-01 06:45] LABS: ANISOCYTOSIS 1+; HYPOCHROMASIA SLIGHT; MICROCYTOSIS SLIGHT; OVALOCYTES SLIGHT; POIKILOCYTOSIS SLIGHT; POLYCHROMASIA SLIGHT; TEAR DROP CELLS SLIGHT; TOXIC GRANULATION SLIGHT
[2016-12-01 07:36] LABS: VENOUS BLOOD BASE EXCESS 2.9 mmol/L; VENOUS BLOOD HCO3 29.8 mmol/L (20-32); VENOUS BLOOD PCO2 56.7 mmHg (35-63); VENOUS BLOOD PH 7.34 (7.30-7.42)
--- NOTE | 2016-12-01 08:24 | RADIOLOGY REPORT (SQ) ---
EXAM DESCRIPTION: CHEST PA/LAT COMPLETED DATE/TIME: 12/01/2016 8:06 am REASON FOR STUDY: Hypoxia COMPARISON: July 2016 EXAM PARAMETERS: NUMBER OF VIEWS: two views TECHNIQUE: Digital Frontal and Lateral radiographic views of the chest acquired. RADIATION DOSE: NA LIMITATIONS: none FINDINGS: LUNGS AND PLEURA: No opacities, masses or pneumothorax. No pleural effusion. The previous ly described chronic appearing changes appears stable. MEDIASTINUM AND HILAR STRUCTURES: No masses or contour abnormalities. HEART AND VASCULAR STRUCTURES: The configuration of the heart and mediastinal structures is unchanged . BONES: No acute findings. HARDWARE: None in the chest. OTHER: No other significant finding. IMPRESSION: No significant interval change. No acute findings. Other findings as noted above TECHNICAL DOCUMENTATION: JOB ID: [id number] [employer]- All Rights Reserved
[2016-12-01] MEDS: LEVALBUTEROL HCL NEB 1.25 MG/3 ML AMPUL NEB SCH ×3 (08:38→20:44)
[2016-12-01] MEDS: BUDESONIDE/FORMOTEROL 160-4.5 MCG 60 PUFF/6 GM MDI IH SCH ×2 (09:17→22:19)
[2016-12-01] MEDS: FLUTICASONE NASAL SPRAY 50 MCG/SPRY 120 SPRAY/16 GM NASL SCH ×2 (09:17→22:19)
[2016-12-01] MEDS: TIOTROPIUM BROMIDE DPI 5 CAP/KIT (18 MCG/CAP) IH SCH (09:18)
[2016-12-01] MEDS: APIXABAN 5 MG TABLET PO SCH ×2 (09:20→22:19)
[2016-12-01] MEDS: DILTIAZEM HCL 120 MG CAP.SR.24H PO SCH (09:20)
[2016-12-01] MEDS: GLIPIZIDE XL 2.5 MG TAB.ER.24 PO SCH (09:21)
[2016-12-01] MEDS: POTASSIUM CHLORIDE 10 MEQ TABLET.SA PO SCH (09:21)
[2016-12-01] MEDS: LEVOFLOXACIN 750 MG TABLET PO SCH (09:21)
[2016-12-01] MEDS: MULTIVITAMIN TABLET PO SCH (09:21)
[2016-12-01] MEDS: DIGOXIN INJ 0.5 MG/2 ML AMPULE IV SCH (09:22)
[2016-12-01] MEDS ORDERED: LORAZEPAM 0.5 MG TABLET PO PRN (09:24)
[2016-12-01] MEDS: GUAIFENESIN 600 MG TABLET.SA PO SCH ×2 (09:31→22:21)
[2016-12-01] MEDS ORDERED: PREDNISONE 20 MG TABLET PO SCH ×2 (10:00)
[2016-12-01] MEDS ORDERED: (PENDING PHARMACY ID) (Folic Acid [Folic Acid] 0.4 MG) PO SCH (10:00)
[2016-12-01] MEDS ORDERED: (PENDING PHARMACY ID) (Ferrous Sulfate [Ferrous Sulfate] 324 MG) PO SCH (10:00)
[2016-12-01] MEDS ORDERED: LEVOFLOXACIN 750 MG/D5W RTU 750 MG/150 ML RTUPB IV SCH (10:00)
[2016-12-01] MEDS: FERROUS SULFATE 325 MG TABLET PO SCH (10:41)
[2016-12-01] MEDS: DILTIAZEM HCL/D5W 125 MG/125 ML RTUINJ IV PRN (10:42)
[2016-12-01] MEDS ORDERED: PREDNISONE 20 MG TABLET PO ONE (11:00)
[2016-12-01 11:05] LABS: ARTERIAL BLOOD BASE EXCESS 1.1 mmol/L; ARTERIAL BLOOD O2 SATURATION 97.8 % (94-98)
--- NOTE | 2016-12-01 15:54 | PDOC PROGRESS REPORT ---
Subjective Progress Note for:: 12/01/16 Subjective:: Patient seen on morning rounds. She is presently sitting on the side of the bed. She is mildly dyspneic and tachypneic at rest. She states this has been her baseline for the last 3 days. She does feel improved from yesterday. She states her cough has become productive yellowish green sputum. She is aware of her palpitations as well. She has periods of paroxysmal atrial fibrillation with RVR. She denies any nausea, abdominal pain or vomiting. She denies any chest pain or dizziness. Denies any significant arthralgias or myalgias. Rest of the review systems are negative. Physical Exam Vital Signs: Temp Pulse Resp BP Pulse Ox 97.6 F 85 21 H 135/79 H 98 12/01/16 11:46 12/01/16 14:16 12/01/16 15:42 12/01/16 13:46 12/01/16 15:42 Intake & Output 11/30/16 12/01/16 12/02/16 06:59 06:59 06:59 Intake Total 1085 1799 574 Output Total 1525 1200 175 Balance -440 599 399 Weight 66.1 kg 69.9 kg General appearance: PRESENT: no acute distress, thin, well-developed, well- nourished Head exam: PRESENT: atraumatic, normocephalic Eye exam: PRESENT: conjunctiva pink, EOMI, PERRLA. ABSENT: scleral icterus Ear exam: PRESENT: normal external ear exam Mouth exam: PRESENT: dry mucosa Neck exam: ABSENT: carotid bruit, JVD, lymphadenopathy, thyromegaly Respiratory exam: PRESENT: rhonchi, symmetrical, tachypnea, wheezes. ABSENT: rales Cardiovascular exam: PRESENT: RRR. ABSENT: diastolic murmur, rubs, systolic murmur Pulses: PRESENT: normal dorsalis pedis pul Vascular exam: PRESENT: normal capillary refill GI/Abdominal exam: PRESENT: normal bowel sounds, soft. ABSENT: distended, guarding, mass, organolmegaly, rebound, tenderness Rectal exam: PRESENT: deferred Extremities exam: PRESENT: full ROM. ABSENT: calf tenderness, clubbing, pedal edema Neurological exam: PRESENT: alert, awake, oriented to person, oriented to place , oriented to time, oriented to situation, CN II-XII grossly intact. ABSENT: motor sensory deficit Psychiatric exam: PRESENT: anxious Skin exam: PRESENT: dry, intact, warm. ABSENT: cyanosis, rash Results Laboratory Results: 12/01/16 05:39 12/01/16 05:39 12/01/16 12/01/16 12/01/16 05:39 05:39 06:10 WBC 9.2 RBC 4.68 Hgb 11.4 L Hct 37.6 MCV 80 MCH 24.4 L MCHC 30.3 L RDW 17.8 H Plt Count 227 Seg Neutrophils % Not Reportable Lymphocytes % Not Reportable Monocytes % Not Reportable Eosinophils % Not Reportable Basophils % Not Reportable Absolute Neutrophils Not Reportable Absolute Lymphocytes Not Reportable Absolute Monocytes Not Reportable Absolute Eosinophils Not Reportable Absolute Basophils Not Reportable Carbonic Acid Cancelled HCO3/H2CO3 Ratio Cancelled ABG pH Cancelled ABG pCO2 Cancelled ABG pO2 Cancelled ABG HCO3 Cancelled ABG O2 Saturation Cancelled ABG Base Excess Cancelled VBG pH VBG pCO2 VBG HCO3 VBG Base Excess FiO2 Cancelled Sodium 146.2 H Potassium 5.0 Chloride 107 Carbon Dioxide 29 Anion Gap 10 BUN 31 H Creatinine 0.79 Est GFR ( Amer) > 60 Est GFR (Non-Af Amer) > 60 Glucose 161 H Calcium 9.4 Magnesium 2.3 Total Bilirubin 0.6 AST 58 H ALT 122 H Alkaline Phosphatase 70 Total Protein 6.2 L Albumin 3.6 12/01/16 12/01/16 07:13 10:54 WBC RBC Hgb Hct MCV MCH MCHC RDW Plt Count Seg Neutrophils % Lymphocytes % Monocytes % Eosinophils % Basophils % Absolute Neutrophils Absolute Lymphocytes Absolute Monocytes Absolute Eosinophils Absolute Basophils Carbonic Acid 1.51 H HCO3/H2CO3 Ratio 18:1 ABG pH 7.35 ABG pCO2 50.2 H ABG pO2 110.0 H ABG HCO3 27.3 H ABG O2 Saturation 97.8 ABG Base Excess 1.1 VBG pH 7.34 VBG pCO2 56.7 VBG HCO3 29.8 VBG Base Excess 2.9 FiO2 4L Sodium Potassium Chloride Carbon Dioxide Anion Gap BUN Creatinine Est GFR ( Amer) Est GFR (Non-Af Amer) Glucose Calcium Magnesium Total Bilirubin AST ALT Alkaline Phosphatase Total Protein Albumin Impressions: Chest X-Ray 12/01/16 06:00 IMPRESSION: No significant interval change. No acute findings. Other findings as noted above Assessment & Plan - Diagnosis (1) Acute and chronic respiratory failure Qualifiers: Respiratory failure complication: hypoxia and hypercapnia Qualified Code(s): J96.21 - Acute and chronic respiratory failure with hypoxia; J96.22 - Acute and chronic respiratory failure with hypercapnia Is this a current diagnosis for this admission?: YesPlan: Patient states presently her breathing is improved from yesterday. Continue CPAP at at bedtime. Continue current inhalers, nebulizers and steroid taper. Continue broad-spectrum antibiotics and await culture results. (2) COPD exacerbation Is this a current diagnosis for this admission?: YesPlan: As above (3) Atrial fibrillation Qualifiers: Atrial fibrillation type: paroxysmal Qualified Code(s): I48.0 - Paroxysmal atrial fibrillation Is this a current diagnosis for this admission?: YesPlan: Patient is being followed by Dr Miramontes, cardiology. She is on cardiazem and digoxin, eliquis (4) Anxiety Is this a current diagnosis for this admission?: YesPlan: We had held her Lorazepam because of hypercapnia. We can try low-dose Xanax prior to bedtime. (6) Diabetes Qualifiers: Diabetes mellitus type: type 2 Is this a current diagnosis for this admission?: YesPlan: Continue home medication, With sliding scale coverage - Time Time Spent with patient: 25-34 minutes Critical Time spent with patient: 25-34 minutes Medications reviewed and adjusted accordingly: Yes Anticipated discharge: Home with Homehealth
[2016-12-01] MEDS: INSULIN LISPRO 100 UNIT/ML 3 ML VIAL SUBCUT PRN ×2 (16:29→22:29)
[2016-12-01] MEDS: ACETAMINOPHEN 325 MG TABLET PO PRN (20:42)
[2016-12-01] MEDS: MONTELUKAST SODIUM 10 MG TABLET PO SCH (22:19)
--- NOTE | 2016-12-01 22:29 | PROGRESS NOTE E ---
Progress Note NAME: TERE VALERIO : 1960 AGE: 56Y DATE: 12/01/2016 ROOM: 331 SUBJECTIVE: Note that the patient is much less short of breath, but still on the BiPAP. There are no accessory muscles of respiration used. She denies any chest pain or difficulty talking. There is no pedal edema. She still has PND. She says to me that even though she told me she had no orthopnea yesterday, she does have orthopnea today. OBJECTIVE: The patient is afebrile. She is coughing, still some yellow sputum but much less. Her wheezing is also much less. There are no arrhythmias seen, except atrial fibrillation with rapid ventricular response. The nurse was here, but the patient is asleep, and the heart rate comes down, but at present the heart rate is anywhere from 123 to 142 beats per minute, atrial fibrillation with a rapid ventricular response. Her blood pressure is stable. There are no TIA or CVA symptoms. There is no bleeding on Eliquis. PHYSICAL EXAMINATION: GENERAL: On examination, the patient appears to be frail and seems to be chronically ill. VITAL SIGNS: She is afebrile with a temperature of 97.6 degrees Fahrenheit. Axillary pulse is 136 beats per minute. Blood pressure is 130/87. Respirations are 22 per minute. O2 sat is 100% on BiPAP. FIO2 is 30%. HEAD: Atraumatic, normocephalic. EYES: Pupils are equal, round, reactive to light and accommodation. Extraocular movements are normal. There is no clinical pallor. There is no scleral icterus. ENT: Negative. NECK: Supple. There is no JVD. The carotids are equal. There is no bruit. There are no accessory muscles of respiration used. The trachea is centered. LUNGS: Show scattered wheezing and a few rhonchi, which is much less than yesterday. There are no rales of CHF. There are no crackles of pneumonia. There is diminished air entry, prolonged expiration present on auscultation. On percussion, there is hyperresonance. HEART: S1/S2 are heard. S1 was variable in intensity. There is no S3 gallop. There is no S4 gallop. There is a systolic murmur at the left border at the apex. There is no rub. ABDOMEN: Soft, nontender. There is no hepatosplenomegaly. Bowel sounds are well heard. EXTREMITIES: Femorals are diminished. There are no femoral bruits. Leg pulses are diminished. There is no pedal edema. There is no DVT or cellulitis. There is no calf tenderness. There is no cyanosis or clubbing. CENTRAL NERVOUS SYSTEM: The patient is conscious, alert, oriented x3, and moves all 4 extremities. PSYCHIATRIC: The patient does not appear to be agitated or depressed. Her judgement and insight are intact. IMAGING: The patient's chest x-ray shows some chronic changes in chest, stable, but no acute pneumonia or heart failure. LABORATORY: The patient's white count is 9200, hemoglobin 11.4, hematocrit is 37.6, platelet count is 227,000. The patient's ABGs show a pH of 7.35, pCO2 is high at 50.2, pO2 is 110, O2 sat is 97-98. This was earlier in the morning at 4 liters per minute, but now the patient is back on BiPAP. The patient's 24-hour intake is 1799 mL, output is 1200 mL. IMPRESSION: 1. Acute hypercapnic respiratory failure. 2. Acute exacerbation of chronic obstructive pulmonary disease. 3. Acute bronchitis. 4. History of sleep apnea, not on CPAP at home. 5. History of paroxysmal atrial fibrillation, now patient in atrial flutter/fibrillation with rapid ventricular response. 6. Coronary artery disease, history of myocardial infarction in the past. History of cardiac catheterization, findings unknown. No anginal symptoms for a long time. No evidence of myocardial infarction this admission. 7. Hypertension. Blood pressure at present seems to be fairly well controlled. 8. Diabetes mellitus type 2, not insulin dependent at home, but now the patient is on insulin because of steroids; the blood sugars have been going up. 9. Osteoarthritis. 10. Past history of tobacco abuse for a long time, has quit for some months. RECOMMENDATIONS: Would hold the patient's Cardizem CD and start the patient on Cardizem IV infusion at 10 mg/hour. Continue digoxin. Strongly recommend respiratory treatments with intermittent BiPAP. Continue antibiotics. Continue respiratory treatments. Also continue steroids. Continue Eliquis at 5 mg p.o. q. 12 hours. Note, her medications have been reviewed. Note, 30 minutes spent on the patient, with more than 50% of the time spent on direct patient care and discussions with the patient and other caregiving providers of her care. In view of the patient's atrial flutter/fibrillation with rapid ventricular response, and also the patient having underlying coronary artery disease, and with the patient also having acute exacerbation of COPD and acute bronchitis, this case involves highly-complex medical decision making. Will follow with you. Will start the patient on IV Cardizem and increase it as needed to titrate the rate. Once the patient's COPD is under control and goes back to baseline, then we will try to switch the patient to her prior p.o. medications, which are Toprol XL and the Cardizem CD. Will follow with you. Thanking you. DICTATING PHYSICIAN: ANIL BA M.D. [id number] ANGEL#: [id number] ID: [id number] JOB#: [id number] ACCT: [id number] cc: >
[2016-12-02] MEDS: DILTIAZEM HCL/D5W 125 MG/125 ML RTUINJ IV PRN ×3 (04:30→20:38)
[2016-12-02 07:00] LABS: FREE T3 2.89 pg/mL (2.77-5.27)
[2016-12-02 07:14] LABS: THYROID STIMULATING HORMONE 0.14 uIU/mL (0.47-4.68)
[2016-12-02] MEDS: LEVALBUTEROL HCL NEB 1.25 MG/3 ML AMPUL NEB SCH ×3 (08:56→19:55)
[2016-12-02] MEDS: DIGOXIN INJ 0.5 MG/2 ML AMPULE IV SCH (09:25)
[2016-12-02] MEDS: APIXABAN 5 MG TABLET PO SCH ×2 (09:25→22:10)
[2016-12-02] MEDS: GLIPIZIDE XL 2.5 MG TAB.ER.24 PO SCH (09:25)
[2016-12-02] MEDS: POTASSIUM CHLORIDE 10 MEQ TABLET.SA PO SCH (09:26)
[2016-12-02] MEDS: MULTIVITAMIN TABLET PO SCH (09:26)
[2016-12-02] MEDS: FERROUS SULFATE 325 MG TABLET PO SCH (09:26)
[2016-12-02] MEDS: LEVOFLOXACIN 750 MG TABLET PO SCH (09:27)
[2016-12-02] MEDS: PREDNISONE 20 MG TABLET PO SCH (09:28)
[2016-12-02] MEDS: BUDESONIDE/FORMOTEROL 160-4.5 MCG 60 PUFF/6 GM MDI IH SCH ×2 (09:29→22:10)
[2016-12-02] MEDS: TIOTROPIUM BROMIDE DPI 5 CAP/KIT (18 MCG/CAP) IH SCH (09:29)
[2016-12-02] MEDS: FLUTICASONE NASAL SPRAY 50 MCG/SPRY 120 SPRAY/16 GM NASL SCH ×2 (09:30→22:10)
[2016-12-02] MEDS: GUAIFENESIN 600 MG TABLET.SA PO SCH ×2 (09:30→22:21)
[2016-12-02] MEDS ORDERED: DILTIAZEM HCL 180 MG CAPSULE.CR PO SCH (11:00)
[2016-12-02] MEDS: INSULIN LISPRO 100 UNIT/ML 3 ML VIAL SUBCUT PRN ×3 (11:34→22:10)
[2016-12-02] MEDS: ALPRAZOLAM 0.25 MG TABLET PO PRN (11:36)
--- NOTE | 2016-12-02 14:27 | PDOC PROGRESS REPORT ---
Subjective Progress Note for:: 12/02/16 Subjective:: Patient seen on morning rounds. She is presently sitting on the side of the bed with BIPAP on. She appears less dyspneic than yesterday. She does feel improved from yesterday. She states her cough has become productive yellowish green sputum. She is aware of her palpitations as well. She has periods of paroxysmal atrial fibrillation and flutter with RVR. She denies any nausea, abdominal pain or vomiting. She denies any chest pain or dizziness. Denies any significant arthralgias or myalgias. Rest of the review systems are negative. Physical Exam Vital Signs: Temp Pulse Resp BP Pulse Ox 97.7 F 108 H 20 133/85 H 100 12/02/16 11:22 12/02/16 11:22 12/02/16 11:22 12/02/16 11:00 12/02/16 11:22 Intake & Output 12/01/16 12/02/16 12/03/16 06:59 06:59 06:59 Intake Total 1919 1193 277 Output Total 1500 775 400 Balance 419 418 -123 Weight 69.9 kg 68.3 kg General appearance: PRESENT: no acute distress, thin, well-developed, well- nourished Head exam: PRESENT: atraumatic, normocephalic Eye exam: PRESENT: conjunctiva pink, EOMI, PERRLA. ABSENT: scleral icterus Ear exam: PRESENT: normal external ear exam Mouth exam: PRESENT: moist, tongue midline Neck exam: ABSENT: carotid bruit, JVD, lymphadenopathy, thyromegaly Respiratory exam: PRESENT: rhonchi, symmetrical, unlabored, wheezes Cardiovascular exam: PRESENT: irregular rhythm, +S1, +S2 Pulses: PRESENT: normal dorsalis pedis pul Vascular exam: PRESENT: normal capillary refill GI/Abdominal exam: PRESENT: normal bowel sounds, soft. ABSENT: distended, guarding, mass, organolmegaly, rebound, tenderness Rectal exam: PRESENT: deferred Extremities exam: PRESENT: full ROM. ABSENT: calf tenderness, clubbing, pedal edema Neurological exam: PRESENT: alert, awake, oriented to person, oriented to place , oriented to time, oriented to situation, CN II-XII grossly intact. ABSENT: motor sensory deficit Psychiatric exam: PRESENT: appropriate affect, normal mood. ABSENT: homicidal ideation, suicidal ideation Skin exam: PRESENT: dry, intact, warm. ABSENT: cyanosis, rash Results Laboratory Results: 12/01/16 05:39 12/01/16 05:39 12/02/16 05:45 TSH 0.14 L Free T4 0.98 Free T3 pg/mL 2.89 12/02/16 05:45 Troponin I < 0.012 Impressions: Chest X-Ray 12/01/16 06:00 IMPRESSION: No significant interval change. No acute findings. Other findings as noted above Assessment & Plan - Diagnosis (1) Acute and chronic respiratory failure Qualifiers: Respiratory failure complication: hypoxia and hypercapnia Qualified Code(s): J96.21 - Acute and chronic respiratory failure with hypoxia Is this a current diagnosis for this admission?: YesPlan: Patient states presently her breathing is improved from yesterday. Continue CPAP at at bedtime. Continue current inhalers, nebulizers and steroid taper. Continue broad-spectrum antibiotics and await culture results. (2) COPD exacerbation Is this a current diagnosis for this admission?: YesPlan: As above (3) Atrial fibrillation Qualifiers: Atrial fibrillation type: paroxysmal Qualified Code(s): I48.0 - Paroxysmal atrial fibrillation Is this a current diagnosis for this admission?: YesPlan: Patient is being followed by Dr Miramontes, cardiology. She is on cardiazem and digoxin, eliquis (4) Anxiety Is this a current diagnosis for this admission?: YesPlan: We had held her Lorazepam because of hypercapnia. We can try low-dose Xanax prior to bedtime. (5) DVT prophylaxis Is this a current diagnosis for this admission?: YesPlan: Patient is on Eliquis (6) Diabetes Qualifiers: Diabetes mellitus type: type 2 Is this a current diagnosis for this admission?: YesPlan: Continue home medication, With sliding scale coverage - Time Time Spent with patient: 25-34 minutes Critical Time spent with patient: 15-24 minutes Medications reviewed and adjusted accordingly: Yes Anticipated discharge: Home with Homehealth
[2016-12-02] MEDS: ACETAMINOPHEN 325 MG TABLET PO PRN (20:35)
[2016-12-02] MEDS: MONTELUKAST SODIUM 10 MG TABLET PO SCH (22:10)
[2016-12-03] MEDS: DILTIAZEM HCL/D5W 125 MG/125 ML RTUINJ IV PRN ×3 (03:41→20:25)
[2016-12-03 06:58] LABS: ANION GAP 7 (5-19); BLOOD UREA NITROGEN 15 mg/dL (7-20); CALCIUM 8.8 mg/dL (8.4-10.2); CARBON DIOXIDE 32 mmol/L (22-30); CHLORIDE 103 mmol/L (98-107); CREATININE RESULT 0.51 mg/dL (0.52-1.25); GLUCOSE 119 mg/dL (75-110); POTASSIUM 3.5 mmol/L (3.6-5.0)
[2016-12-03] MEDS: LEVALBUTEROL HCL NEB 1.25 MG/3 ML AMPUL NEB SCH ×3 (08:18→20:32)
[2016-12-03] MEDS ORDERED: POTASSIUM CHLORIDE 10 MEQ TABLET.SA PO ONE (09:30)
[2016-12-03] MEDS: BUDESONIDE/FORMOTEROL 160-4.5 MCG 60 PUFF/6 GM MDI IH SCH ×2 (09:32→22:36)
[2016-12-03] MEDS: DIGOXIN INJ 0.5 MG/2 ML AMPULE IV SCH (09:32)
[2016-12-03] MEDS: FLUTICASONE NASAL SPRAY 50 MCG/SPRY 120 SPRAY/16 GM NASL SCH ×2 (09:32→22:35)
[2016-12-03] MEDS: APIXABAN 5 MG TABLET PO SCH ×2 (09:32→22:36)
[2016-12-03] MEDS: PREDNISONE 20 MG TABLET PO SCH (09:33)
[2016-12-03] MEDS: POTASSIUM CHLORIDE 10 MEQ TABLET.SA PO SCH (09:33)
[2016-12-03] MEDS: LEVOFLOXACIN 750 MG TABLET PO SCH (09:35)
[2016-12-03] MEDS ORDERED: GUAIFENESIN SYRP 200 MG/10 ML UDC PO PRN (09:35)
[2016-12-03] MEDS: GLIPIZIDE XL 2.5 MG TAB.ER.24 PO SCH (09:36)
[2016-12-03] MEDS: FERROUS SULFATE 325 MG TABLET PO SCH (09:36)
[2016-12-03] MEDS: MULTIVITAMIN TABLET PO SCH (09:36)
[2016-12-03] MEDS ORDERED: GUAIFENESIN SYRP 200 MG/10 ML UDC PO ONE (10:00)
--- NOTE | 2016-12-03 12:26 | PDOC PROGRESS REPORT ---
Subjective Progress Note for:: 12/03/16 Subjective:: Patient seems to be doing better with gradual improvement. Pt is denying any chest arm or neck discomfort. Patient denying any PND, orthopnea. Patient denied any sustained palpitations, dizziness, syncope, near syncope. Patient denying any fever chills. Patient denying any other significant discomfort. Patient is maintaining atrial flutter, heart rate response intermittently high. Review of systems: Rest review of systems negative. Medications: Medications have been reviewed. Physical Exam Vital Signs: Temp Pulse Resp BP Pulse Ox 98.2 F 114 H 20 119/70 97 12/03/16 07:32 12/03/16 08:18 12/03/16 08:18 12/03/16 09:01 12/03/16 08:18 Intake & Output 12/02/16 12/03/16 12/04/16 06:59 06:59 06:59 Intake Total 1193 1852 Output Total 775 3350 Balance 418 -1498 Weight 68.3 kg 66.2 kg Exam: GENERAL: well-nourished and in no acute distress. Alert and oriented x3 HEAD: Atraumatic, normocephalic. EYES: Pupils equal round and reactive to light, extraocular movements intact, sclera anicteric, conjunctiva are normal. ENT: TMs normal, nares patent, oropharynx clear without exudates. Moist mucous membranes. No oral ulcerations or bleeding gums noted NECK: supple without lymphadenopathy. Trachea is central. No cervical or axillary lymphadenopathy noted. Carotids are 2+, JVD WNL LUNGS: Respiration seems nonlabored, no significant accessory muscle action noted. Breath sounds clear to auscultation bilaterally and equal noted. No wheezes rales or rhonchi noted. No significant dullness noted on percussion. CHEST: Palpation of the chest wall shows no significant chest wall tenderness. No other significant abnormalities noted. HEART: [place] [employer]ING [employer], No PSH, 1/6 TERRIE aortic area, 1/6 johnson systolic murmur mitral area, no rubs, no gallops. ABDOMEN: Soft, no significant tenderness appreciated, normoactive bowel sounds. No guarding, no rebound. No rigidity noted . No masses appreciated. EXTREMITIES: Pedal pulses are 1-2+, no calf tenderness noted. No clubbing or cyanosis.trace pedal edema noted NEUROLOGICAL: Focused neurological exam showed no significant neurologic deficit. Normal speech, no focal weakness appreciated. PSYCH: Normal mood, normal affect. Judgment and insight within normal limits. SKIN: No significant ecchymosis, rash, ulcerations or signs of pruritus noted. MUSCULOSKELETAL EXAM: No significant joint swelling noted. Results Laboratory Results: 12/01/16 05:39 12/03/16 06:35 12/03/16 06:35 Sodium 142.0 Potassium 3.5 L Chloride 103 Carbon Dioxide 32 H Anion Gap 7 BUN 15 Creatinine 0.51 L Est GFR ( Amer) > 60 Est GFR (Non-Af Amer) > 60 Glucose 119 H Calcium 8.8 Magnesium 2.0 12/02/16 05:45 Troponin I < 0.012 EKG Comments: Lead EKG reviewed. It shows typical atrial flutter. Impressions: Chest X-Ray 12/01/16 06:00 IMPRESSION: No significant interval change. No acute findings. Other findings as noted above Assessment & Plan - Diagnosis (1) Atrial flutter with rapid ventricular response Is this a current diagnosis for this admission?: Yes (2) Acute and chronic respiratory failure Qualifiers: Respiratory failure complication: hypoxia and hypercapnia Qualified Code(s): J96.21 - Acute and chronic respiratory failure with hypoxia Is this a current diagnosis for this admission?: Yes (3) COPD exacerbation Is this a current diagnosis for this admission?: Yes (4) Congestive heart failure Qualifiers: Congestive heart failure type: diastolic Is this a current diagnosis for this admission?: Yes (5) Coronary artery disease Qualifiers: Coronary Disease-Associated Artery/Lesion type: [place] artery Associated angina: angina presence unspecified Is this a current diagnosis for this admission?: Yes - Notes Notes: environmental monitoring technician, this was reviewed. Twelve-lead EKG, these were reviewed. Chest x-ray: Results reviewed. Medications: These were reviewed. Labs: These were reviewed. Treatment/care plan: This was reviewed and discussed with involved personnel in the care of this patient and patient. Atrial flutter with rapid ventricular response: Patient still has intermittently high rapid ventricular response. Currently on Cardizem drip. Consider adding a small dose of selective beta-petty such as metoprolol succinate, Bystolic, bisoprolol etc. with caution as patient has significant COPD. If for some reason we are unable to control the heart rate response, will consider tertiary care transfer for ablation therapy. Continue chronic anticoagulation. Acute on chronic respiratory failure: Patient has been advised to quit smoking. Continue with bronchodilator therapy and oxygen supplementation. COPD patient encouraged to avoid first-hand and secondhand smoking. Patient also advised to avoid environmental pollutants. Patient to use bronchodilator and steroid therapy as has been prescribed by PMD and other specialists. CHF: Possibly predominantly right heart. Will check a BNP level. Difficult to assess this in the presence of significant COPD. If BNP significantly high will consider small dose of diuretics. CAD: Patient has CAD. Currently stable without any angina or angina equivalent symptoms. Discussed symptoms associated with unstable angina, acute coronary syndrome, myocardial infarction etc. Aggressive risk factor modification advised. 2D echo ordered by Dr. Aviles will be reviewed when performed. Addendum: I was called to see the patient again. Patient was noted to have atrial flutter with 2-1 conduction with heart rate in the 150s. Patient was given Lopressor 2.5 mg IV, every hour as needed for heart rate over 120. Patient responded to it. Of note, patient was on metoprolol succinate but this was discontinued on admission this time and will need to be gradually reinstituted. - Time Time with patient: Greater than 35 minutes - CODE STATUS was discussed, patient remains full code. Surrogate decision-maker unchanged. Multiple medical problems were addressed. More than 50% of the time spent coordinating care, discussing management plans with involved caregivers. Management plans discussed with involved personnels. Medical decision making was of moderate to high complexity, patient's has multiple comorbidities.
--- NOTE | 2016-12-03 13:00 | EKG REPORT ---
SEVERITY:- ABNORMAL ECG - ECTOPIC ATRIAL TACHYCARDIA BORDERLINE RIGHT AXIS DEVIATION CONSIDER LEFT VENTRICULAR HYPERTROPHY REPOLARIZATION ABNORMALITY, PROB RATE RELATED : Confirmed by: Janine Aviles MD 03-Dec-2016 12:59:26
--- NOTE | 2016-12-03 13:03 | PDOC PROGRESS REPORT ---
Subjective Progress Note for:: 12/03/16 Subjective:: Patient seen on morning rounds. She is presently sitting on the side of the bed off BIPAP. She appears less dyspneic than yesterday. She does feel improved from yesterday. She states her cough has become less productive yellowish green sputum. She is aware of her palpitations as well. She has periods of paroxysmal atrial fibrillation and flutter with RVR. She denies any nausea, abdominal pain or vomiting. She denies any chest pain or dizziness. Denies any significant arthralgias or myalgias. Rest of the review systems are negative. Physical Exam Vital Signs: Temp Pulse Resp BP Pulse Ox 98.2 F 114 H 20 119/70 97 12/03/16 07:32 12/03/16 08:18 12/03/16 08:18 12/03/16 09:01 12/03/16 08:18 Intake & Output 12/02/16 12/03/16 12/04/16 06:59 06:59 06:59 Intake Total 1193 1852 Output Total 775 3350 Balance 418 -1498 Weight 68.3 kg 66.2 kg General appearance: PRESENT: no acute distress, thin, well-developed, well- nourished Head exam: PRESENT: atraumatic, normocephalic Eye exam: PRESENT: conjunctiva pink, EOMI, PERRLA. ABSENT: scleral icterus Ear exam: PRESENT: normal external ear exam Neck exam: ABSENT: carotid bruit, JVD, lymphadenopathy, thyromegaly Respiratory exam: PRESENT: decreased breath sounds, rhonchi, symmetrical Cardiovascular exam: PRESENT: irregular rhythm, +S1, +S2 Pulses: PRESENT: normal dorsalis pedis pul Vascular exam: PRESENT: normal capillary refill GI/Abdominal exam: PRESENT: normal bowel sounds, soft. ABSENT: distended, guarding, mass, organolmegaly, rebound, tenderness Rectal exam: PRESENT: deferred Extremities exam: PRESENT: full ROM. ABSENT: calf tenderness, clubbing, pedal edema Neurological exam: PRESENT: alert, awake, oriented to person, oriented to place , oriented to time, oriented to situation, CN II-XII grossly intact. ABSENT: motor sensory deficit Psychiatric exam: PRESENT: appropriate affect, normal mood. ABSENT: homicidal ideation, suicidal ideation Skin exam: PRESENT: dry, intact, warm. ABSENT: cyanosis, rash Results Laboratory Results: 12/01/16 05:39 12/03/16 06:35 12/03/16 06:35 Sodium 142.0 Potassium 3.5 L Chloride 103 Carbon Dioxide 32 H Anion Gap 7 BUN 15 Creatinine 0.51 L Est GFR ( Amer) > 60 Est GFR (Non-Af Amer) > 60 Glucose 119 H Calcium 8.8 Magnesium 2.0 12/02/16 05:45 Troponin I < 0.012 Impressions: Chest X-Ray 12/01/16 06:00 IMPRESSION: No significant interval change. No acute findings. Other findings as noted above Assessment & Plan - Diagnosis (1) Acute and chronic respiratory failure Qualifiers: Respiratory failure complication: hypoxia and hypercapnia Qualified Code(s): J96.21 - Acute and chronic respiratory failure with hypoxia Is this a current diagnosis for this admission?: YesPlan: Patient states presently her breathing is improved from yesterday. Continue CPAP at at bedtime. Continue current inhalers, nebulizers and steroid taper. Continue broad-spectrum antibiotics and await culture results. (2) COPD exacerbation Is this a current diagnosis for this admission?: YesPlan: As above (3) Atrial fibrillation Qualifiers: Atrial fibrillation type: paroxysmal Qualified Code(s): I48.0 - Paroxysmal atrial fibrillation Is this a current diagnosis for this admission?: YesPlan: Patient is being followed by Dr Miramontes, cardiology. She is on cardiazem and digoxin, eliquis (4) Anxiety Is this a current diagnosis for this admission?: YesPlan: We had held her Lorazepam because of hypercapnia. We can try low-dose Xanax prior to bedtime. (5) DVT prophylaxis Is this a current diagnosis for this admission?: YesPlan: Patient is on Eliquis (6) Diabetes Qualifiers: Diabetes mellitus type: type 2 Is this a current diagnosis for this admission?: Yes - Time Time Spent with patient: 25-34 minutes Critical Time spent with patient: 15-24 minutes Smoking Cessation Education: 3 to 10 minutes Medications reviewed and adjusted accordingly: Yes Anticipated discharge: Home with Homehealth
[2016-12-03] MEDS: TIOTROPIUM BROMIDE DPI 5 CAP/KIT (18 MCG/CAP) IH SCH (15:00)
[2016-12-03] MEDS ORDERED: METOPROLOL TARTRATE PF/INJ 5 MG/5 ML SDV IV ONE (15:41)
[2016-12-03] MEDS ORDERED: METOPROLOL TARTRATE 25 MG TABLET PO ONE (15:57)
[2016-12-03] MEDS: METOPROLOL TARTRATE PF/INJ 5 MG/5 ML SDV IV SCH ×2 (18:02→23:49)
[2016-12-03] MEDS: INSULIN LISPRO 100 UNIT/ML 3 ML VIAL SUBCUT PRN ×2 (18:27→22:36)
[2016-12-03] MEDS: ACETYLCYSTEINE 20% SOLN 800 MG/4 ML VIAL.NEB NEB SCH (20:32)
[2016-12-03] MEDS: MONTELUKAST SODIUM 10 MG TABLET PO SCH (22:36)
[2016-12-03] MEDS: METOPROLOL TARTRATE 25 MG TABLET PO SCH (22:36)
[2016-12-04] MEDS: DILTIAZEM HCL/D5W 125 MG/125 ML RTUINJ IV PRN ×3 (04:30→23:42)
[2016-12-04] MEDS: METOPROLOL TARTRATE PF/INJ 5 MG/5 ML SDV IV SCH ×4 (05:58→23:45)
[2016-12-04 06:26] LABS: VENOUS BLOOD BASE EXCESS 8.9 mmol/L; VENOUS BLOOD HCO3 34.5 mmol/L (20-32); VENOUS BLOOD PCO2 51.9 mmHg (35-63); VENOUS BLOOD PH 7.44 (7.30-7.42)
[2016-12-04 06:44] LABS: ANION GAP 9 (5-19); BLOOD UREA NITROGEN 19 mg/dL (7-20); CALCIUM 9.2 mg/dL (8.4-10.2); CARBON DIOXIDE 32 mmol/L (22-30); CHLORIDE 99 mmol/L (98-107); CREATININE RESULT 0.63 mg/dL (0.52-1.25); GLUCOSE 115 mg/dL (75-110); SODIUM 140.2 mmol/L (137-145)
[2016-12-04 06:55] LABS: POTASSIUM 4.4 mmol/L (3.6-5.0)
[2016-12-04] MEDS: LEVALBUTEROL HCL NEB 1.25 MG/3 ML AMPUL NEB SCH ×3 (08:35→20:16)
[2016-12-04] MEDS: ACETYLCYSTEINE 20% SOLN 800 MG/4 ML VIAL.NEB NEB SCH ×2 (08:36→20:16)
[2016-12-04] MEDS ORDERED: PREDNISONE 20 MG TABLET PO SCH (10:00)
[2016-12-04] MEDS: DIGOXIN INJ 0.5 MG/2 ML AMPULE IV SCH (10:13)
[2016-12-04] MEDS: BUDESONIDE/FORMOTEROL 160-4.5 MCG 60 PUFF/6 GM MDI IH SCH ×2 (10:13→23:42)
[2016-12-04] MEDS: FERROUS SULFATE 325 MG TABLET PO SCH (10:13)
[2016-12-04] MEDS: FLUTICASONE NASAL SPRAY 50 MCG/SPRY 120 SPRAY/16 GM NASL SCH ×2 (10:13→23:41)
[2016-12-04] MEDS: APIXABAN 5 MG TABLET PO SCH ×2 (10:13→23:41)
[2016-12-04] MEDS: MULTIVITAMIN TABLET PO SCH (10:14)
[2016-12-04] MEDS: TIOTROPIUM BROMIDE DPI 5 CAP/KIT (18 MCG/CAP) IH SCH (10:14)
[2016-12-04] MEDS: GLIPIZIDE XL 2.5 MG TAB.ER.24 PO SCH (10:15)
[2016-12-04] MEDS: POTASSIUM CHLORIDE 10 MEQ TABLET.SA PO SCH (10:15)
[2016-12-04] MEDS: FOLIC ACID 1 MG TABLET PO SCH (10:16)
[2016-12-04] MEDS: METOPROLOL TARTRATE 25 MG TABLET PO SCH ×2 (10:16→23:41)
[2016-12-04] MEDS: LEVOFLOXACIN 750 MG TABLET PO SCH (10:16)
--- NOTE | 2016-12-04 10:22 | PDOC CONSULTATION ---
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 Musculoskeltal Medical History: Reports: Arthritis Hematology: Reports: Anemia Past Surgical History Past Surgical History: Reports: Cardiac Catheterization, Section Social History Information Source: Patient, [facility] Records Lives with: Family Smoking Status: Former Smoker Cigarettes Packs Per Day: 30 Number of Years Smokin Passive smoke exposure as: Both Frequency of Alcohol Use: None Hx Recreational Drug Use: No Drugs: None Hx Prescription Drug Abuse: No Do you have pets?: No Have you had any respiratory illnesses as a child?: No Have you been exposed to any sick contacts recently?: No Have you travelled outside of [place] in the past 12 months?: No Family History Family History: Reviewed & Not Pertinent, CAD, COPD, Hypertension Parental Family History Reviewed: Yes Children Family History Reviewed: Yes Sibling(s) Family History Reviewed.: Yes Medication/Allergy Home Medications: Apixaban [Eliquis 5 mg Tablet] 5 mg PO Q12 11/28/16 Budesonide/Formoterol Fumarate [Symbicort HFA 160-4.5 mcg Inhaler 6 gm] 2 puff IH Q12 11/28/16 Furosemide [Lasix] 40 mg PO DAILY 11/28/16 Glipizide [Glipizide ER] 2.5 mg PO DAILY 11/28/16 Multivit-Min/FA/Herbal No.245 [Alive Women's Gummy Vitamins] 1 tab PO DAILY Potassium Chloride [K-Tab ER] 20 meq PO DAILY 11/28/16 Tiotropium [place] [Spiriva Respimat] 1 puff IH DAILY 11/28/16 Ferrous Sulfate 324 mg PO DAILY 12/01/16 Folic Acid 0.4 mg PO DAILY 12/01/16 Acetaminophen [Tylenol 325 mg Tablet] 650 mg PO Q8HP PRN tablet 12/06/16 Alprazolam [Xanax 0.25 mg Tablet] 0.25 mg PO DAILYP PRN #30 tablet 12/06/16 Digoxin [Lanoxin 0.125 mg Tablet] 0.125 mg PO DAILY #30 tablet 12/06/16 Diltiazem HCl [Cardizem Cd 180 mg Capsule] 180 mg PO Q12 #60 capsule.cr Fluticasone Propionate [Flonase Nasal [place] 50 Mcg/[place] 16 gm] 2 spray NASL Q12 #1 spray.pump 12/06/16 Guaifenesin [Robitussin Syrup 200 mg/10 ml Ud Cup] 200 mg PO Q4HP PRN #240 ml Ipratropium/Albuterol Sulfate [Duoneb 3 ml Ampul] 3 ml NEB RTQ6HP PRN #90 vial.neb 12/06/16 Metoprolol Succinate [Toprol Xl 50 mg Tab.sr] 50 mg PO DAILY #30 tab.sr.24h Montelukast Sodium [Singulair 10 mg Tablet] 10 mg PO QHS #30 tablet 12/06/16 Prednisone [Deltasone 20 mg Tablet] 20 mg PO DAILY #5 tablet 12/06/16 Allergies/Adverse Reactions: erythromycin base [Erythromycin Base] Allergy (Mild, Verified 06/10/16 21:58) Physical Exam Vital Signs: Temp Pulse Resp BP Pulse Ox 21 H 124/57 L 97 11/28/16 10:03 11/28/16 10:03 11/28/16 10:03 General appearance: PRESENT: no acute distress, disheveled, well-developed, well -nourished Head exam: PRESENT: atraumatic, normocephalic Eye exam: PRESENT: conjunctiva pale, EOMI Mouth exam: PRESENT: dry mucosa, neck supple Neck exam: ABSENT: carotid bruit, JVD, lymphadenopathy, thyromegaly Respiratory exam: PRESENT: decreased breath sounds, prolonged expiratory phas, rhonchi, symmetrical, unlabored Cardiovascular exam: PRESENT: RRR, +S1, +S2 Pulses: PRESENT: normal radial pulses GI/Abdominal exam: PRESENT: ascites Rectal exam: PRESENT: deferred Musculoskeletal exam: PRESENT: normal inspection Neurological exam: PRESENT: alert, awake Psychiatric exam: PRESENT: normal mood Skin exam: PRESENT: dry, warm Results Impressions: Chest X-Ray 11/28/16 05:37 IMPRESSION: No acute cardiopulmonary findings. Mild chronic cardiac enlargement. 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
--- NOTE | 2016-12-04 11:58 | PDOC PROGRESS REPORT ---
Subjective Progress Note for:: 11/29/16 Subjective:: Awake alert using NI awake alert using noninvasive positive pressure ventilation Physical Exam Vital Signs: Temp Pulse Resp BP Pulse Ox 97.2 F 138 H 21 H 117/85 97 11/30/16 07:44 11/30/16 08:43 11/30/16 08:43 11/30/16 07:44 11/30/16 08:43 Intake & Output 11/29/16 11/30/16 12/01/16 06:59 06:59 06:59 Intake Total 735 1085 Output Total 420 1525 Balance 315 -440 Weight 65.9 kg 66.1 kg General appearance: PRESENT: no acute distress, cooperative, disheveled, well- developed, well-nourished Head exam: PRESENT: atraumatic, normocephalic Eye exam: PRESENT: conjunctiva pale, EOMI Mouth exam: PRESENT: dry mucosa, neck supple Neck exam: ABSENT: carotid bruit, JVD, lymphadenopathy, thyromegaly Respiratory exam: PRESENT: decreased breath sounds, prolonged expiratory phas, rhonchi, symmetrical, unlabored Cardiovascular exam: PRESENT: irregular rhythm Pulses: PRESENT: normal radial pulses GI/Abdominal exam: PRESENT: normal bowel sounds, soft. ABSENT: distended, guarding, mass, organolmegaly, rebound, tenderness Rectal exam: PRESENT: deferred Musculoskeletal exam: PRESENT: normal inspection Neurological exam: PRESENT: alert, awake Psychiatric exam: PRESENT: normal mood Skin exam: PRESENT: dry, warm Results Laboratory Results: 11/29/16 05:51 11/30/16 05:04 11/30/16 05:04 Sodium 145.6 H Potassium 5.0 Chloride 107 Carbon Dioxide 30 Anion Gap 9 BUN 28 H Creatinine 0.72 Est GFR ( Amer) > 60 Est GFR (Non-Af Amer) > 60 Glucose 178 H Calcium 9.4 Magnesium 2.3 Impressions: Chest X-Ray 11/29/16 06:00 IMPRESSION: NO ACUTE RADIOGRAPHIC FINDING IN THE CHEST. Stable mild cardiomegaly. 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
--- NOTE | 2016-12-04 12:00 | PDOC PROGRESS REPORT ---
Subjective Progress Note for:: 11/30/16 Subjective:: Awake and alert: finished eating: on nasal cannula Physical Exam Vital Signs: Temp Pulse Resp BP Pulse Ox 97.2 F 138 H 21 H 117/85 97 11/30/16 07:44 11/30/16 08:43 11/30/16 08:43 11/30/16 07:44 11/30/16 08:43 Intake & Output 11/29/16 11/30/16 12/01/16 06:59 06:59 06:59 Intake Total 735 1085 Output Total 420 1525 Balance 315 -440 Weight 65.9 kg 66.1 kg General appearance: PRESENT: no acute distress, cooperative, disheveled, well- developed, well-nourished Head exam: PRESENT: atraumatic, normocephalic Eye exam: PRESENT: conjunctiva pale, EOMI Mouth exam: PRESENT: dry mucosa, neck supple, tongue midline Neck exam: ABSENT: carotid bruit, JVD, lymphadenopathy, thyromegaly Respiratory exam: PRESENT: decreased breath sounds, prolonged expiratory phas, rhonchi, symmetrical, unlabored Cardiovascular exam: PRESENT: irregular rhythm Pulses: PRESENT: normal radial pulses GI/Abdominal exam: PRESENT: normal bowel sounds, soft. ABSENT: distended, guarding, mass, organolmegaly, rebound, tenderness Rectal exam: PRESENT: deferred Musculoskeletal exam: PRESENT: normal inspection Neurological exam: PRESENT: alert, awake Psychiatric exam: PRESENT: normal mood Skin exam: PRESENT: dry, warm Results Laboratory Results: 11/29/16 05:51 11/30/16 05:04 11/30/16 05:04 Sodium 145.6 H Potassium 5.0 Chloride 107 Carbon Dioxide 30 Anion Gap 9 BUN 28 H Creatinine 0.72 Est GFR ( Amer) > 60 Est GFR (Non-Af Amer) > 60 Glucose 178 H Calcium 9.4 Magnesium 2.3 Impressions: Chest X-Ray 11/29/16 06:00 IMPRESSION: NO ACUTE RADIOGRAPHIC FINDING IN THE CHEST. Stable mild cardiomegaly. Assessment & Plan - Diagnosis (1) Acute and chronic respiratory failure Qualifiers: Respiratory failure complication: hypoxia and hypercapnia Qualified Code(s): J96.21 - Acute and chronic respiratory failure with hypoxia Is this a current diagnosis for this admission?: Yes (2) Atrial flutter with rapid ventricular response Is this a current diagnosis for this admission?: Yes (3) COPD exacerbation Is this a current diagnosis for this admission?: Yes (4) Continuous tobacco abuse Is this a current diagnosis for this admission?: Yes - Plan Summary Plan Summary: failed bipap PCO2>50 trilogy
--- NOTE | 2016-12-04 12:02 | PDOC PROGRESS REPORT ---
Subjective Progress Note for:: 12/01/16 Subjective:: Awake alert patient just finished eating wearing nasal cannula Physical Exam Vital Signs: Temp Pulse Resp BP Pulse Ox 97.7 F 108 H 20 133/85 H 100 12/02/16 11:22 12/02/16 11:22 12/02/16 11:22 12/02/16 11:00 12/02/16 11:22 Intake & Output 12/01/16 12/02/16 12/03/16 06:59 06:59 06:59 Intake Total 1919 1193 277 Output Total 1500 775 400 Balance 419 418 -123 Weight 69.9 kg 68.3 kg General appearance: PRESENT: no acute distress, cooperative, disheveled, well- developed, well-nourished Head exam: PRESENT: atraumatic, normocephalic Eye exam: PRESENT: conjunctiva pale, EOMI Mouth exam: PRESENT: moist, neck supple, tongue midline Neck exam: ABSENT: carotid bruit, JVD, lymphadenopathy, thyromegaly Respiratory exam: PRESENT: decreased breath sounds, prolonged expiratory phas, rhonchi, symmetrical, unlabored Cardiovascular exam: PRESENT: irregular rhythm Pulses: PRESENT: normal radial pulses GI/Abdominal exam: PRESENT: normal bowel sounds, soft. ABSENT: distended, guarding, mass, organolmegaly, rebound, tenderness Rectal exam: PRESENT: deferred Musculoskeletal exam: PRESENT: normal inspection Neurological exam: PRESENT: alert, awake Psychiatric exam: PRESENT: normal mood Skin exam: PRESENT: dry, warm Results Laboratory Results: 12/01/16 05:39 12/01/16 05:39 12/02/16 05:45 TSH 0.14 L Free T4 0.98 Free T3 pg/mL 2.89 12/02/16 05:45 Troponin I < 0.012 Impressions: Chest X-Ray 12/01/16 06:00 IMPRESSION: No significant interval change. No acute findings. Other findings as noted above Assessment & Plan - Diagnosis (1) Acute and chronic respiratory failure Qualifiers: Respiratory failure complication: hypoxia and hypercapnia Qualified Code(s): J96.21 - Acute and chronic respiratory failure with hypoxia Is this a current diagnosis for this admission?: Yes (2) Atrial flutter with rapid ventricular response Is this a current diagnosis for this admission?: Yes (3) COPD exacerbation Is this a current diagnosis for this admission?: Yes (4) Continuous tobacco abuse Is this a current diagnosis for this admission?: Yes
--- NOTE | 2016-12-04 12:04 | PDOC PROGRESS REPORT ---
Subjective Progress Note for:: 12/04/16 Subjective:: Continues to improve Physical Exam Vital Signs: Temp Pulse Resp BP Pulse Ox 99.0 F 81 19 131/74 H 91 L 12/04/16 08:16 12/04/16 08:35 12/04/16 11:36 12/04/16 08:16 12/04/16 11:36 Intake & Output 12/03/16 12/04/16 12/05/16 06:59 06:59 06:59 Intake Total 1852 1151 Output Total 3356 3770 Balance -1498 -1549 Weight 66.2 kg 66.5 kg General appearance: PRESENT: no acute distress, cooperative, disheveled, well- developed, well-nourished Head exam: PRESENT: atraumatic, normocephalic Eye exam: PRESENT: conjunctiva pale, EOMI Mouth exam: PRESENT: moist, neck supple, tongue midline Neck exam: ABSENT: carotid bruit, JVD, lymphadenopathy, thyromegaly Respiratory exam: PRESENT: decreased breath sounds, prolonged expiratory phas, rhonchi, symmetrical, unlabored Cardiovascular exam: PRESENT: irregular rhythm Pulses: PRESENT: normal radial pulses GI/Abdominal exam: PRESENT: normal bowel sounds, soft. ABSENT: distended, guarding, mass, organolmegaly, rebound, tenderness Rectal exam: PRESENT: deferred Musculoskeletal exam: PRESENT: normal inspection Neurological exam: PRESENT: alert, awake Psychiatric exam: PRESENT: normal mood Skin exam: PRESENT: dry, warm Results Laboratory Results: 12/01/16 05:39 12/04/16 06:12 12/04/16 12/04/16 06:12 06:12 VBG pH 7.44 H VBG pCO2 51.9 VBG HCO3 34.5 H VBG Base Excess 8.9 Sodium 140.2 Potassium 4.4 Chloride 99 Carbon Dioxide 32 H Anion Gap 9 BUN 19 Creatinine 0.63 Est GFR ( Amer) > 60 Est GFR (Non-Af Amer) > 60 Glucose 115 H Calcium 9.2 12/02/16 12/03/16 05:45 06:35 Troponin I < 0.012 NT-Pro-B Natriuret Pep 791 Impressions: Chest X-Ray 12/01/16 06:00 IMPRESSION: No significant interval change. No acute findings. Other findings as noted above Assessment & Plan - Diagnosis (1) Acute and chronic respiratory failure Qualifiers: Respiratory failure complication: hypoxia and hypercapnia Qualified Code(s): J96.21 - Acute and chronic respiratory failure with hypoxia Is this a current diagnosis for this admission?: Yes (2) Atrial flutter with rapid ventricular response Is this a current diagnosis for this admission?: Yes (3) COPD exacerbation Is this a current diagnosis for this admission?: Yes (4) Continuous tobacco abuse Is this a current diagnosis for this admission?: Yes (5) Tobacco abuse counseling Is this a current diagnosis for this admission?: YesPlan: Discussed at length the risk and dangers of continued tobacco use
[2016-12-04] MEDS: ALPRAZOLAM 0.25 MG TABLET PO PRN (13:59)
[2016-12-04] MEDS: GUAIFENESIN SYRP 200 MG/10 ML UDC PO PRN (13:59)
--- NOTE | 2016-12-04 16:47 | PDOC PROGRESS REPORT ---
Subjective Progress Note for:: 12/04/16 Subjective:: Patient seen on morning rounds. She is presently sitting on the side of the bed off BIPAP. She states she feels much better. She does feel improved from yesterday. She states her cough has become less productive yellowish green sputum. She is aware of her palpitations as well. She has periods of paroxysmal atrial fibrillation and flutter now with controlled rate on oral beta petty as well. She denies any nausea, abdominal pain or vomiting. She denies any chest pain or dizziness. Denies any significant arthralgias or myalgias. Rest of the review systems are negative. Physical Exam Vital Signs: Temp Pulse Resp BP Pulse Ox 98.9 F 91 21 H 129/63 H 90 L 12/04/16 12:45 12/04/16 13:35 12/04/16 13:35 12/04/16 13:00 12/04/16 13:35 Intake & Output 12/03/16 12/04/16 12/05/16 06:59 06:59 06:59 Intake Total 1852 1151 518 Output Total 3350 2700 1100 Balance -1498 -1549 -582 Weight 66.2 kg 66.5 kg General appearance: PRESENT: no acute distress, thin, well-developed, well- nourished Head exam: PRESENT: atraumatic, normocephalic Eye exam: PRESENT: conjunctiva pink, EOMI, PERRLA. ABSENT: scleral icterus Ear exam: PRESENT: normal external ear exam Neck exam: ABSENT: carotid bruit, JVD, lymphadenopathy, thyromegaly Respiratory exam: PRESENT: clear to auscultation martínez, decreased breath sounds, symmetrical, unlabored. ABSENT: rales, rhonchi, wheezes Cardiovascular exam: PRESENT: RRR, +S1, +S2 - atrial flutter 4:1. ABSENT: diastolic murmur, rubs, systolic murmur Pulses: PRESENT: normal dorsalis pedis pul Vascular exam: PRESENT: normal capillary refill GI/Abdominal exam: PRESENT: normal bowel sounds, soft. ABSENT: distended, guarding, mass, organolmegaly, rebound, tenderness Rectal exam: PRESENT: deferred Extremities exam: PRESENT: full ROM. ABSENT: calf tenderness, clubbing, pedal edema Musculoskeletal exam: PRESENT: ambulatory, full ROM, normal inspection Neurological exam: PRESENT: alert, awake, oriented to person, oriented to place , oriented to time, oriented to situation, CN II-XII grossly intact. ABSENT: motor sensory deficit Psychiatric exam: PRESENT: appropriate affect, normal mood. ABSENT: homicidal ideation, suicidal ideation Skin exam: PRESENT: dry, intact, warm. ABSENT: cyanosis, rash Results Laboratory Results: 12/01/16 05:39 12/04/16 06:12 12/04/16 12/04/16 06:12 06:12 VBG pH 7.44 H VBG pCO2 51.9 VBG HCO3 34.5 H VBG Base Excess 8.9 Sodium 140.2 Potassium 4.4 Chloride 99 Carbon Dioxide 32 H Anion Gap 9 BUN 19 Creatinine 0.63 Est GFR ( Amer) > 60 Est GFR (Non-Af Amer) > 60 Glucose 115 H Calcium 9.2 11/30/16 21:40 Sputum Gram Stain - Final 12/02/16 12/03/16 05:45 06:35 Troponin I < 0.012 NT-Pro-B Natriuret Pep 791 Impressions: Chest X-Ray 12/01/16 06:00 IMPRESSION: No significant interval change. No acute findings. Other findings as noted above Assessment & Plan - Diagnosis (1) Acute and chronic respiratory failure Qualifiers: Respiratory failure complication: hypoxia and hypercapnia Qualified Code(s): J96.21 - Acute and chronic respiratory failure with hypoxia Is this a current diagnosis for this admission?: YesPlan: Patient states presently her breathing is improved from yesterday. Continue CPAP at at bedtime. Continue current inhalers, nebulizers and steroid taper. Continue broad-spectrum antibiotics and await culture results. (2) COPD exacerbation Is this a current diagnosis for this admission?: YesPlan: As above (3) Atrial fibrillation Qualifiers: Atrial fibrillation type: paroxysmal Qualified Code(s): I48.0 - Paroxysmal atrial fibrillation Is this a current diagnosis for this admission?: YesPlan: Patient is being followed by Dr Grover, cardiology. She is on cardiazem and digoxin, eliquis. We restarted her betablocker therapy at half the dose with improvement in her tachycardia (4) Anxiety Is this a current diagnosis for this admission?: YesPlan: We had held her Lorazepam because of hypercapnia. We can try low-dose Xanax prior to bedtime. (5) DVT prophylaxis Is this a current diagnosis for this admission?: YesPlan: Patient is on Eliquis (6) Diabetes Qualifiers: Diabetes mellitus type: type 2 Is this a current diagnosis for this admission?: YesPlan: Continue home medication, With sliding scale coverage - Time Time Spent with patient: 25-34 minutes Critical Time spent with patient: 15-24 minutes Medications reviewed and adjusted accordingly: Yes Anticipated discharge: Home with Homehealth Within: within 24 hours
--- NOTE | 2016-12-04 19:31 | XCELERA REPORT ---
[address] [address] Transthoracic Echocardiogram Report Name: TERE VALERIO Age: 56 yrs Gender: Female : 1960 Patient Status: Inpatient Patient Location: [id number]\S\331\S\A Study Date: 12/04/2016 10:11 AM Height: 67 in Weight: 150 lb BSA: 1.8 m2 Procedure: A complete two-dimensional transthoracic echocardiogram was performed (2D, M-mode, spectral and color flow Doppler). The study was technically difficult with many images being suboptimal in quality. Reason For Study: Atrial Flutter / SOB Ordering Physician: ANIL BA Performed By: Jazmin Greenfield Interpretation Summary The left ventricular ejection fraction is normal. The left ventricle is grossly normal size. There is normal left ventricular wall thickness. Wall motion cannot be accurately commented on, but no definite regional wall motion abnormalities noted. The right ventricular systolic function is normal. The right atrium is mildly dilated. The left atrium is moderately dilated. There is a mild to moderate amount of mitral regurgitation There is no mitral valve stenosis. No aortic regurgitation is present. There is no aortic valve stenosis There is a trace or physiologic amount of tricuspid regurgitation Tricuspid regurgitation jet envelope not well defined to measure RV systolic pressure accurately. The aortic root is not well visualized but is probably normal size. The inferior vena cava appeared normal and decreased > 50% with respiration (RAP 5-10 mmHg) Minimal pericardial effusion. MMode/2D Measurements \T\ Calculations RVDd: 2.5 cm LVIDd: 5.5 cm FS: 33.5 % Ao root diam: 2.5 cm IVSd: 0.74 cm LVIDs: 3.7 cm EDV(Teich): 150.4 ml LVPWd: 0.79 cmESV(Teich): 57.6 ml Ao root area: 5.0 cm2 EF(Teich): 61.7 % LA dimension: 4.7 cm LVOT diam: 2.0 cm LVOT area: 3.0 cm2 Doppler Measurements \T\ Calculations MV E max deion: MV P1/2t max deion: Ao V2 max: LV V1 max P.2 cm/sec 130.8 cm/sec 150.2 cm/sec 2.7 mmHg MV A max deion: MV P1/2t: 51.9 msec Ao max PG: LV V1 max: 48.7 cm/sec MVA(P1/2t): 4.2 cm2 9.0 mmHg 81.8 cm/sec MV E/A: 2.6 MV dec slope: GONZALES(V,D): 1.6 cm2 737.8 cm/sec2 PA V2 max: 78.4 cm/sec PA max P.5 mmHg Left Ventricle The left ventricle is grossly normal size. There is normal left ventricular wall thickness. The left ventricular ejection fraction is normal. LV diastolic function could not be adequately assessed due to atrial fibrilation. Wall motion cannot be accurately commented on, but no definite regional wall motion abnormalities noted. Right Ventricle The right ventricle is grossly normal size. There is normal right ventricular wall thickness. The right ventricular systolic function is normal. Atria The right atrium is mildly dilated. The left atrium is moderately dilated. Interarterial septum not well visualized and not well dopplered. Cannot comment on ASD/PFO presence. Mitral Valve The mitral valve is grossly normal. There is no mitral valve stenosis. There is a mild to moderate amount of mitral regurgitation. Aortic Valve The aortic valve is not well visualized secondary to technical limitations. There is no aortic valve stenosis. No aortic regurgitation is present. Tricuspid Valve The tricuspid valve is not well visualized secondary to technical limitations. There is no tricuspid stenosis. There is a trace or physiologic amount of tricuspid regurgitation. Tricuspid regurgitation jet envelope not well defined to measure RV systolic pressure accurately. Pulmonic Valve The pulmonic valve is not well visualized. Great Vessels The aortic root is not well visualized but is probably normal size. The inferior vena cava appeared normal and decreased > 50% with respiration (RAP 5-10 mmHg). Effusions Minimal pericardial effusion. : ANIL BA > Kelby Grover
[2016-12-04] MEDS: INSULIN LISPRO 100 UNIT/ML 3 ML VIAL SUBCUT PRN (23:41)
[2016-12-04] MEDS: MONTELUKAST SODIUM 10 MG TABLET PO SCH (23:41)
[2016-12-05] MEDS: METOPROLOL TARTRATE PF/INJ 5 MG/5 ML SDV IV SCH ×2 (06:16→11:40)
[2016-12-05] MEDS: DILTIAZEM HCL/D5W 125 MG/125 ML RTUINJ IV PRN (07:28)
[2016-12-05] MEDS: LEVALBUTEROL HCL NEB 1.25 MG/3 ML AMPUL NEB SCH ×3 (08:13→19:50)
[2016-12-05] MEDS: ACETYLCYSTEINE 20% SOLN 800 MG/4 ML VIAL.NEB NEB SCH ×2 (08:13→19:51)
[2016-12-05] MEDS: FLUTICASONE NASAL SPRAY 50 MCG/SPRY 120 SPRAY/16 GM NASL SCH ×2 (10:23→22:25)
[2016-12-05] MEDS: BUDESONIDE/FORMOTEROL 160-4.5 MCG 60 PUFF/6 GM MDI IH SCH ×2 (10:23→22:26)
[2016-12-05] MEDS: TIOTROPIUM BROMIDE DPI 5 CAP/KIT (18 MCG/CAP) IH SCH (10:24)
[2016-12-05] MEDS: METOPROLOL TARTRATE 25 MG TABLET PO SCH ×2 (10:25→22:24)
[2016-12-05] MEDS: DIGOXIN INJ 0.5 MG/2 ML AMPULE IV SCH (10:25)
[2016-12-05] MEDS: GLIPIZIDE XL 2.5 MG TAB.ER.24 PO SCH (10:26)
[2016-12-05] MEDS: POTASSIUM CHLORIDE 10 MEQ TABLET.SA PO SCH (10:26)
[2016-12-05] MEDS: MULTIVITAMIN TABLET PO SCH (10:27)
[2016-12-05] MEDS: FERROUS SULFATE 325 MG TABLET PO SCH (10:27)
[2016-12-05] MEDS: LEVOFLOXACIN 750 MG TABLET PO SCH (10:28)
[2016-12-05] MEDS: FOLIC ACID 1 MG TABLET PO SCH (10:28)
[2016-12-05] MEDS: APIXABAN 5 MG TABLET PO SCH ×2 (10:29→22:25)
[2016-12-05] MEDS ORDERED: DILTIAZEM HCL 240 MG CAPSULE.CR PO ONE (11:00)
--- NOTE | 2016-12-05 11:20 | PDOC PROGRESS REPORT ---
Subjective Progress Note for:: 12/04/16 Subjective:: Patient seems to be doing better with gradual improvement. Pt is denying any chest arm or neck discomfort. Patient denying any PND, orthopnea. Patient denied any sustained palpitations, dizziness, syncope, near syncope. Patient denying any fever chills. Patient denying any other significant discomfort. Patient is maintaining atrial flutter, heart rate response intermittently high but much better controlled than yesterday. Patient today claims that she did not want to be transferred as an inpatient for ablation therapy.. Review of systems: Rest review of systems negative. Medications: Medications have been reviewed. Physical Exam Vital Signs: Temp Pulse Resp BP Pulse Ox 97.4 F 78 21 H 122/72 100 12/04/16 16:54 12/04/16 16:54 12/04/16 16:54 12/04/16 17:01 12/04/16 16:54 Intake & Output 12/03/16 12/04/16 12/05/16 06:59 06:59 06:59 Intake Total 1852 1151 518 Output Total 3350 2700 1100 Balance -1498 -1549 -582 Weight 66.2 kg 66.5 kg Exam: GENERAL: well-nourished and in no acute distress. Alert and oriented x3 HEAD: Atraumatic, normocephalic. EYES: Pupils equal round and reactive to light, extraocular movements intact, sclera anicteric, conjunctiva are normal. ENT: TMs normal, nares patent, oropharynx clear without exudates. Moist mucous membranes. No oral ulcerations or bleeding gums noted NECK: supple without lymphadenopathy. Trachea is central. No cervical or axillary lymphadenopathy noted. Carotids are 2+, JVD 8-10 cm LUNGS: Respiration seems mildly increased but no significant accessory muscle action noted. Bilateral mild wheezes rales or rhonchi noted. No significant dullness noted on percussion. CHEST: Palpation of the chest wall shows no significant chest wall tenderness. No other significant abnormalities noted. HEART: [place] MOLDER, No PSH, 1/6 TERRIE aortic area, 1/6 johnson systolic murmur mitral area, no rubs, no gallops. ABDOMEN: Soft, no significant tenderness appreciated, normoactive bowel sounds. No guarding, no rebound. No rigidity noted . No masses appreciated. EXTREMITIES: Pedal pulses are 1-2+, no calf tenderness noted. No clubbing or cyanosis.trace to 1+ pedal edema noted NEUROLOGICAL: Focused neurological exam showed no significant neurologic deficit. Normal speech, no focal weakness appreciated. PSYCH: Normal mood, normal affect. Judgment and insight within normal limits. SKIN: No significant ecchymosis, rash, ulcerations or signs of pruritus noted. MUSCULOSKELETAL EXAM: No significant joint swelling noted. Results Laboratory Results: 12/01/16 05:39 12/04/16 06:12 12/04/16 12/04/16 06:12 06:12 VBG pH 7.44 H VBG pCO2 51.9 VBG HCO3 34.5 H VBG Base Excess 8.9 Sodium 140.2 Potassium 4.4 Chloride 99 Carbon Dioxide 32 H Anion Gap 9 BUN 19 Creatinine 0.63 Est GFR ( Amer) > 60 Est GFR (Non-Af Amer) > 60 Glucose 115 H Calcium 9.2 11/30/16 21:40 Sputum Gram Stain - Final 12/02/16 12/03/16 05:45 06:35 Troponin I < 0.012 NT-Pro-B Natriuret Pep 791 Impressions: Chest X-Ray 12/01/16 06:00 IMPRESSION: No significant interval change. No acute findings. Other findings as noted above Assessment & Plan - Diagnosis (1) Atrial flutter with rapid ventricular response Is this a current diagnosis for this admission?: Yes (2) Acute and chronic respiratory failure Qualifiers: Respiratory failure complication: hypoxia and hypercapnia Qualified Code(s): J96.21 - Acute and chronic respiratory failure with hypoxia Is this a current diagnosis for this admission?: Yes (3) COPD exacerbation Is this a current diagnosis for this admission?: Yes (4) Congestive heart failure Qualifiers: Congestive heart failure type: diastolic Is this a current diagnosis for this admission?: Yes (5) Coronary artery disease Qualifiers: Coronary Disease-Associated Artery/Lesion type: [place] artery Associated angina: angina presence unspecified Is this a current diagnosis for this admission?: Yes - Notes Notes: data base design analyst, this was reviewed. Shows atrial flutter with intermittent high ventricular response with excessive coughing and exertion. Twelve-lead EKG, these were reviewed. Chest x-ray: Results reviewed. Medications: These were reviewed. Labs: These were reviewed. Treatment/care plan: This was reviewed and discussed with involved personnel in the care of this patient and patient. Atrial flutter with rapid ventricular response: Patient still has intermittently high rapid ventricular response. Currently on Cardizem drip. Metoprolol added on my recommendation by the hospitalist. If for some reason we are unable to control the heart rate response, will consider tertiary care transfer for ablation therapy. Continue chronic anticoagulation. Acute on chronic respiratory failure: Patient has been advised to quit smoking. Patient claims she quit a few months ago. Continue with bronchodilator therapy and oxygen supplementation. COPD patient encouraged to avoid first-hand and secondhand smoking. Patient also advised to avoid environmental pollutants. Patient to use bronchodilator and steroid therapy as has been prescribed by PMD and other specialists. CHF: Possibly predominantly right heart. Compensated. BNP level came back WNL. CAD: Patient has CAD. Currently stable without any angina or angina equivalent symptoms. Discussed symptoms associated with unstable angina, acute coronary syndrome, myocardial infarction etc. Aggressive risk factor modification advised. 2D echo was reviewed and shows normal LVEF. These results were discussed. Mild to moderate mitral regurgitation was noted. Patient questions were answered.. - Time Time with patient: Greater than 35 minutes - CODE STATUS was discussed, patient remains full code. Surrogate decision-maker unchanged. Multiple medical problems were addressed. More than 50% of the time spent coordinating care, discussing management plans with involved caregivers. Management plans discussed with involved personnels. Medical decision making was of moderate to high complexity, patient's has multiple comorbidities. Medications reviewed and adjusted accordingly: Yes
--- NOTE | 2016-12-05 11:27 | PDOC PROGRESS REPORT ---
Subjective Progress Note for:: 12/05/16 Subjective:: Patient seems to be doing better with gradual improvement. Pt is denying any chest arm or neck discomfort. Patient denying any PND, orthopnea. Patient denied any sustained palpitations, dizziness, syncope, near syncope. Patient denying any fever chills. Patient denying any other significant discomfort. Patient is maintaining atrial flutter, heart rate response intermittently high but much better controlled than yesterday. Patient today claims that she did not want to be transferred as an inpatient for ablation therapy. Heart rate still tends to be high when she has coughing spells and on exertion, dose of beta-petty are being escalated. Patient being switched over to p.o. Cardizem.. Review of systems: Rest review of systems negative. Medications: Medications have been reviewed. Physical Exam Vital Signs: Temp Pulse Resp BP Pulse Ox 98.6 F 75 22 H 114/74 100 12/05/16 08:00 12/05/16 08:00 12/05/16 08:00 12/05/16 09:01 12/05/16 08:00 Intake & Output 12/04/16 12/05/16 12/06/16 06:59 06:59 06:59 Intake Total 1151 1805 Output Total 2700 2000 Balance -1549 -195 Weight 66.5 kg 63.8 kg Exam: GENERAL: well-nourished and in no acute distress. Alert and oriented x3 HEAD: Atraumatic, normocephalic. EYES: Pupils equal round and reactive to light, extraocular movements intact, sclera anicteric, conjunctiva are normal. ENT: TMs normal, nares patent, oropharynx clear without exudates. Moist mucous membranes. No oral ulcerations or bleeding gums noted NECK: supple without lymphadenopathy. Trachea is central. No cervical or axillary lymphadenopathy noted. Carotids are 2+, JVD WNL LUNGS: Respiration seems nonlabored, no significant accessory muscle action noted. Mild bilateral wheezes rales or rhonchi noted. No significant dullness noted on percussion. CHEST: Palpation of the chest wall shows no significant chest wall tenderness. No other significant abnormalities noted. 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 ABDOMEN: Soft, no significant tenderness appreciated, normoactive bowel sounds. No guarding, no rebound. No rigidity noted . No masses appreciated. EXTREMITIES: Pedal pulses are 1-2+, no calf tenderness noted. No clubbing or cyanosis.trace to 1+ pedal edema noted NEUROLOGICAL: Focused neurological exam showed no significant neurologic deficit. Normal speech, no focal weakness appreciated. PSYCH: Normal mood, normal affect. Judgment and insight within normal limits. SKIN: No significant ecchymosis, rash, ulcerations or signs of pruritus noted. MUSCULOSKELETAL EXAM: No significant joint swelling noted. Results Laboratory Results: 12/01/16 05:39 12/04/16 06:12 11/30/16 21:40 Sputum Gram Stain - Final 11/30/16 21:40 Sputum Sputum Culture - Final Streptococcus Pneumoniae Normal [place] 12/02/16 12/03/16 05:45 06:35 Troponin I < 0.012 NT-Pro-B Natriuret Pep 791 Impressions: Chest X-Ray 12/01/16 06:00 IMPRESSION: No significant interval change. No acute findings. Other findings as noted above Assessment & Plan - Diagnosis (1) Atrial flutter with rapid ventricular response Is this a current diagnosis for this admission?: Yes (2) Acute and chronic respiratory failure Qualifiers: Respiratory failure complication: hypoxia and hypercapnia Qualified Code(s): J96.21 - Acute and chronic respiratory failure with hypoxia Is this a current diagnosis for this admission?: Yes (3) COPD exacerbation Is this a current diagnosis for this admission?: Yes (4) Congestive heart failure Qualifiers: Congestive heart failure type: diastolic Is this a current diagnosis for this admission?: Yes (5) Coronary artery disease Qualifiers: Coronary Disease-Associated Artery/Lesion type: [place] artery Associated angina: angina presence unspecified Is this a current diagnosis for this admission?: Yes - Notes Notes: At my recommendation, patient placed on Cardizem CD 240 mg p.o. daily, patient also placed on metoprolol succinate at 50 mg p.o. daily, of note patient was on metoprolol 100 twice daily at home. instrument engineer, this was reviewed. Twelve-lead EKG, these were reviewed. Chest x-ray: Results reviewed. Medications: These were reviewed. 2D echocardiogram results were reviewed with the patient. Labs: These were reviewed. Treatment/care plan: This was reviewed and discussed with involved personnel in the care of this patient and patient. Atrial flutter with rapid ventricular response: Overall better controlled but patient still has intermittently high rapid ventricular response. Currently switched to p.o Cardizem and p.o. medication. If for some reason we are unable to control the heart rate response, will consider tertiary care transfer for ablation therapy. Continue chronic anticoagulation. This was explained to the patient. Acute on chronic respiratory failure: Patient has been advised to quit smoking. Continue with bronchodilator therapy and oxygen supplementation. This has improved. COPD patient encouraged to avoid first-hand and secondhand smoking. Patient also advised to avoid environmental pollutants. Patient to use bronchodilator and steroid therapy as has been prescribed by PMD and other specialists. This is improving. CHF: This seems compensated on clinical exam. Patient was educated in CHF pathway. This should include salt and fluid restriction, daily weighing, adjustment of diuretic therapy based on weight gain et cetera. Patient to be educated that if there is gain of more than 2 pounds in a day or more than 5 pounds in a week, this indicates fluid retention and patient may need to adjust the diuretic therapy. Symptoms associated with CHF exacerbation to be discussed with the patient. This could include rapid weight gain, abdominal bloating, increased shortness of breath, fatigue, tiredness, cardiac arrhythmias et cetera. CAD: Patient has CAD. Currently stable without any angina or angina equivalent symptoms. Discussed symptoms associated with unstable angina, acute coronary syndrome, myocardial infarction etc. Aggressive risk factor modification advised. - Time Time with patient: 15-25 minutes - CODE STATUS was discussed, patient remains full code. Surrogate decision-maker unchanged. Multiple medical problems were addressed. More than 50% of the time spent coordinating care, discussing management plans with involved caregivers. Management plans discussed with involved personnels. Medical decision making was of moderate to high complexity , patient's has multiple comorbidities. Medications reviewed and adjusted accordingly: Yes
[2016-12-05] MEDS: PREDNISONE 20 MG TABLET PO SCH (11:39)
[2016-12-05] MEDS: GUAIFENESIN SYRP 200 MG/10 ML UDC PO PRN (11:41)
--- NOTE | 2016-12-05 13:08 | PDOC PROGRESS REPORT ---
Subjective Progress Note for:: 12/05/16 Subjective:: Continues to improve Physical Exam Vital Signs: Temp Pulse Resp BP Pulse Ox 98.3 F 75 18 131/80 H 96 12/05/16 04:00 12/05/16 06:00 12/05/16 04:00 12/05/16 06:00 12/05/16 04:00 Intake & Output 12/04/16 12/05/16 12/06/16 06:59 06:59 06:59 Intake Total 1151 1805 Output Total 2700 1999 Balance -1549 -195 Weight 66.5 kg 63.8 kg General appearance: PRESENT: no acute distress, cooperative, disheveled, well- developed Head exam: PRESENT: atraumatic, normocephalic Eye exam: PRESENT: conjunctiva pale, EOMI Mouth exam: PRESENT: dry mucosa, neck supple Neck exam: ABSENT: carotid bruit, JVD, lymphadenopathy, thyromegaly Respiratory exam: PRESENT: decreased breath sounds, prolonged expiratory phas, rhonchi, wheezes Cardiovascular exam: PRESENT: irregular rhythm Pulses: PRESENT: normal radial pulses GI/Abdominal exam: PRESENT: normal bowel sounds, soft. ABSENT: distended, guarding, mass, organolmegaly, rebound, tenderness Rectal exam: PRESENT: deferred Musculoskeletal exam: PRESENT: normal inspection Neurological exam: PRESENT: alert, awake Psychiatric exam: PRESENT: normal mood Skin exam: PRESENT: dry, warm Results Laboratory Results: 12/01/16 05:39 12/04/16 06:12 11/30/16 21:40 Sputum Gram Stain - Final 11/30/16 21:40 Sputum Sputum Culture - Final Streptococcus Pneumoniae Normal [place] 12/02/16 12/03/16 05:45 06:35 Troponin I < 0.012 NT-Pro-B Natriuret Pep 791 Impressions: Chest X-Ray 12/01/16 06:00 IMPRESSION: No significant interval change. No acute findings. Other findings as noted above Assessment & Plan - Diagnosis (1) Acute and chronic respiratory failure Qualifiers: Respiratory failure complication: hypoxia and hypercapnia Qualified Code(s): J96.21 - Acute and chronic respiratory failure with hypoxia Is this a current diagnosis for this admission?: YesPlan: PCO2's been stable (2) Atrial flutter with rapid ventricular response Is this a current diagnosis for this admission?: YesPlan: Controlled (3) COPD exacerbation Is this a current diagnosis for this admission?: Yes (4) Continuous tobacco abuse Is this a current diagnosis for this admission?: YesPlan: STOP SMOKING!!!!! (5) Tobacco abuse counseling Is this a current diagnosis for this admission?: YesPlan: Discussed at length the risk and dangers of continued tobacco use
[2016-12-05] MEDS ORDERED: METOPROLOL TARTRATE 25 MG TABLET PO ONE (14:15)
--- NOTE | 2016-12-05 16:15 | PDOC PROGRESS REPORT ---
Subjective Progress Note for:: 12/05/16 Subjective:: Patient seen on morning rounds. She is presently sitting on the side of the bed off BIPAP. She states she feels much better. She would like to go home. She is still on IV Diltiazem however. Awaiting discharge planning, to obtain BIPAP for home. She states her cough has become less productive yellowish green sputum. She is aware of her palpitations as well. She continues to be in atrial flutter. She has declined inpatient transfer for ablation. She denies any nausea, abdominal pain or vomiting. She denies any chest pain or dizziness. Denies any significant arthralgias or myalgias. Rest of the review systems are negative. Physical Exam Vital Signs: Temp Pulse Resp BP Pulse Ox 98.6 F 80 20 117/61 96 12/05/16 13:24 12/05/16 13:52 12/05/16 13:52 12/05/16 13:24 12/05/16 13:52 Intake & Output 12/04/16 12/05/16 12/06/16 06:59 06:59 06:59 Intake Total 1151 1805 758 Output Total 2700 1999 1100 Balance -1549 -195 -342 Weight 66.5 kg 63.8 kg General appearance: PRESENT: no acute distress, thin, well-developed, well- nourished Head exam: PRESENT: atraumatic, normocephalic Eye exam: PRESENT: conjunctiva pink, EOMI, PERRLA. ABSENT: scleral icterus Ear exam: PRESENT: normal external ear exam Mouth exam: PRESENT: moist, tongue midline Neck exam: ABSENT: carotid bruit, JVD, lymphadenopathy, thyromegaly Respiratory exam: PRESENT: clear to auscultation martínez, decreased breath sounds, symmetrical, unlabored Cardiovascular exam: PRESENT: irregular rhythm, +S1, +S2, systolic murmur - 2/6 Pulses: PRESENT: normal carotid pulses, normal radial pulses Vascular exam: PRESENT: normal capillary refill GI/Abdominal exam: PRESENT: normal bowel sounds, soft. ABSENT: distended, guarding, mass, organolmegaly, rebound, tenderness Rectal exam: PRESENT: deferred Extremities exam: PRESENT: full ROM. ABSENT: calf tenderness, clubbing, pedal edema Neurological exam: PRESENT: alert, awake, oriented to person, oriented to place , oriented to time, oriented to situation, CN II-XII grossly intact. ABSENT: motor sensory deficit Psychiatric exam: PRESENT: appropriate affect, normal mood. ABSENT: homicidal ideation, suicidal ideation Skin exam: PRESENT: dry, intact, warm. ABSENT: cyanosis, rash Results Laboratory Results: 12/01/16 05:39 12/04/16 06:12 11/30/16 21:40 Sputum Gram Stain - Final 11/30/16 21:40 Sputum Sputum Culture - Final Streptococcus Pneumoniae Normal [place] 12/02/16 12/03/16 05:45 06:35 Troponin I < 0.012 NT-Pro-B Natriuret Pep 791 Impressions: Chest X-Ray 12/01/16 06:00 IMPRESSION: No significant interval change. No acute findings. Other findings as noted above Assessment & Plan - Diagnosis (1) Acute and chronic respiratory failure Qualifiers: Respiratory failure complication: hypoxia and hypercapnia Qualified Code(s): J96.21 - Acute and chronic respiratory failure with hypoxia Is this a current diagnosis for this admission?: YesPlan: Patient states presently her breathing is improved from yesterday. Continue BIPAP at hs and prn. Continue current inhalers, nebulizers and steroid taper. Continue broad-spectrum antibiotics and await culture results. (2) COPD exacerbation Is this a current diagnosis for this admission?: YesPlan: As above (3) Atrial fibrillation Qualifiers: Atrial fibrillation type: paroxysmal Qualified Code(s): I48.0 - Paroxysmal atrial fibrillation Is this a current diagnosis for this admission?: YesPlan: Patient is being followed by Dr Grover, cardiology. She is on cardiazem and digoxin, eliquis. We restarted her betablocker therapy at half the dose with improvement in her tachycardia (4) Anxiety Is this a current diagnosis for this admission?: YesPlan: We had held her Lorazepam because of hypercapnia. We can try low-dose Xanax prior to bedtime. (5) DVT prophylaxis Is this a current diagnosis for this admission?: Yes (6) Diabetes Qualifiers: Diabetes mellitus type: type 2 Is this a current diagnosis for this admission?: YesPlan: Continue home medication, With sliding scale coverage - Time Time Spent with patient: 25-34 minutes Critical Time spent with patient: 15-24 minutes Medications reviewed and adjusted accordingly: Yes Anticipated discharge: Home with Homehealth
[2016-12-05] MEDS: ACETAMINOPHEN 325 MG TABLET PO PRN (17:01)
[2016-12-05] MEDS: ALPRAZOLAM 0.25 MG TABLET PO PRN (17:02)
[2016-12-05] MEDS: INSULIN LISPRO 100 UNIT/ML 3 ML VIAL SUBCUT PRN ×2 (18:46→22:25)
[2016-12-05] MEDS: MONTELUKAST SODIUM 10 MG TABLET PO SCH (22:24)
[2016-12-05] MEDS: DILTIAZEM HCL 180 MG CAPSULE.CR PO SCH (22:25)
[2016-12-06 05:56] LABS: VENOUS BLOOD BASE EXCESS 9.5 mmol/L; VENOUS BLOOD PCO2 51.6 mmHg (35-63); VENOUS BLOOD PH 7.45 (7.30-7.42)
[2016-12-06] MEDS: ACETYLCYSTEINE 20% SOLN 800 MG/4 ML VIAL.NEB NEB SCH (07:41)
[2016-12-06] MEDS: LEVALBUTEROL HCL NEB 1.25 MG/3 ML AMPUL NEB SCH ×2 (07:41→13:25)
[2016-12-06] MEDS ORDERED: IPRATROPIUM/ALBUTEROL 0.5-2.5 MG/3 ML AMPUL NEB PRN (09:01)
[2016-12-06] MEDS ORDERED: DILTIAZEM HCL 240 MG CAPSULE.CR PO SCH (10:00)
[2016-12-06] MEDS ORDERED: DIGOXIN 0.125 MG TABLET PO SCH (10:00)
[2016-12-06] MEDS ORDERED: FUROSEMIDE INJ/PF 20 MG/2 ML SDV IV ONE (10:15)
[2016-12-06] MEDS: POTASSIUM CHLORIDE 10 MEQ TABLET.SA PO SCH (10:47)
[2016-12-06] MEDS: APIXABAN 5 MG TABLET PO SCH (10:47)
[2016-12-06] MEDS: METOPROLOL TARTRATE 25 MG TABLET PO SCH (10:47)
[2016-12-06] MEDS: FOLIC ACID 1 MG TABLET PO SCH (10:48)
[2016-12-06] MEDS: LEVOFLOXACIN 750 MG TABLET PO SCH (10:48)
[2016-12-06] MEDS: GLIPIZIDE XL 2.5 MG TAB.ER.24 PO SCH (10:50)
[2016-12-06] MEDS: FERROUS SULFATE 325 MG TABLET PO SCH (10:50)
[2016-12-06] MEDS: PREDNISONE 20 MG TABLET PO SCH (10:51)
[2016-12-06] MEDS: MULTIVITAMIN TABLET PO SCH (10:51)
[2016-12-06] MEDS: DILTIAZEM HCL 180 MG CAPSULE.CR PO SCH (10:51)
[2016-12-06] MEDS: FLUTICASONE NASAL SPRAY 50 MCG/SPRY 120 SPRAY/16 GM NASL SCH (10:52)
[2016-12-06] MEDS: BUDESONIDE/FORMOTEROL 160-4.5 MCG 60 PUFF/6 GM MDI IH SCH (10:53)
[2016-12-06] MEDS: TIOTROPIUM BROMIDE DPI 5 CAP/KIT (18 MCG/CAP) IH SCH (10:53)
--- NOTE | 2016-12-06 15:06 | PDOC PROGRESS REPORT ---
Subjective Progress Note for:: 12/06/16 Subjective:: Continues to improve Physical Exam Vital Signs: Temp Pulse Resp BP Pulse Ox 97.6 F 90 21 H 111/63 98 12/06/16 11:23 12/06/16 13:25 12/06/16 13:25 12/06/16 11:23 12/06/16 13:25 Intake & Output 12/05/16 12/06/16 12/07/16 06:59 06:59 06:59 Intake Total 1805 1378 518 Output Total 1999 4160 375 Balance -195 -1672 143 Weight 63.8 kg 63 kg General appearance: PRESENT: no acute distress, disheveled, well-developed Head exam: PRESENT: atraumatic, normocephalic Eye exam: PRESENT: conjunctiva pale, EOMI Mouth exam: PRESENT: dry mucosa, neck supple Teeth exam: PRESENT: poor dentation Neck exam: PRESENT: carotid bruit Respiratory exam: PRESENT: decreased breath sounds, prolonged expiratory phas, rhonchi, wheezes Cardiovascular exam: PRESENT: irregular rhythm Pulses: PRESENT: normal radial pulses GI/Abdominal exam: PRESENT: normal bowel sounds, soft. ABSENT: distended, guarding, mass, organolmegaly, rebound, tenderness Rectal exam: PRESENT: deferred Musculoskeletal exam: PRESENT: normal inspection Neurological exam: PRESENT: alert, awake Psychiatric exam: PRESENT: normal mood Skin exam: PRESENT: dry, warm Results Laboratory Results: 12/01/16 05:39 12/04/16 06:12 12/06/16 05:25 VBG pH 7.45 H VBG pCO2 51.6 VBG HCO3 35.0 H VBG Base Excess 9.5 12/02/16 12/03/16 05:45 06:35 Troponin I < 0.012 NT-Pro-B Natriuret Pep 791 Impressions: Chest X-Ray 12/01/16 06:00 IMPRESSION: No significant interval change. No acute findings. Other findings as noted above Assessment & Plan - Diagnosis (1) Acute and chronic respiratory failure Qualifiers: Respiratory failure complication: hypoxia and hypercapnia Qualified Code(s): J96.21 - Acute and chronic respiratory failure with hypoxia Is this a current diagnosis for this admission?: YesPlan: PCO2's50 on BiPAP and oxygen. Due to FEV1 being 24% of predicted prebronchodilator therapy and 26% of predicted postbronchodilator therapy patient should qualify for trilogy. The above patient has failed BiPAP. This patient would benefit from noninvasive mechanical ventilation via the trilogy AVAPS/AE and faster responding AVAPS rates. The trilogy is able to provide a target tidal volume and also adjusting the EPAP pressures to maintain a patent airway as well as an oral backup rate this machine will help improve PaCO2 levels. The severity of the patient's condition will lead to future hospitalizations and readmissions as well as life-threatening situations without the use of this device trilogy home vent needed for hypercapnic respiratory failure. [facility] to follow for trilogy set up. (2) Atrial flutter with rapid ventricular response Is this a current diagnosis for this admission?: Yes (3) COPD exacerbation Is this a current diagnosis for this admission?: Yes (4) Continuous tobacco abuse Is this a current diagnosis for this admission?: Yes (5) Tobacco abuse counseling Is this a current diagnosis for this admission?: Yes
--- NOTE | 2016-12-06 16:15 | PDOC DISCHARGE SUMMARY ---
General - Admit/Disc Date/PCP Admission Date/Primary Care Provider: 11/28/16 09:18 CHANO CHERY MD Discharge Date: 12/06/16 - Discharge Diagnosis (1) Acute and chronic respiratory failure Is this a current diagnosis for this admission?: YesSummary: Patient will be discharged home with home oxygen and trilogy BiPAP. She will continue with Levaquin daily for the next 5 days and prednisone as well. She will follow-up with Dr. Talbot and her primary care provider at next available. (2) COPD exacerbation Is this a current diagnosis for this admission?: YesSummary: As above (3) Atrial fibrillation Is this a current diagnosis for this admission?: YesSummary: Patient is presently atrial fibrillation most of the time with occasional atrial flutter she is rate controlled on current medications she will be discharged on Eliquis twice daily as well. She will follow-up with Dr. Miramontes in cardiology for outpatient stress test and referral for EPS study. (4) Anxiety Is this a current diagnosis for this admission?: YesSummary: Continue Xanax 0.5 mg at bedtime if needed (5) DVT prophylaxis Is this a current diagnosis for this admission?: YesSummary: Patient is now ambulatory (6) Diabetes Is this a current diagnosis for this admission?: YesSummary: Continue glyburide as directed - Additional Information Resuscitation Status: Full Code Discharge Diet: Cardiac, Diabetic Discharge Activity: Activity As Tolerated, Balance Activity w/Rest Home Medications: Apixaban [Eliquis 5 mg Tablet] 5 mg PO Q12 11/28/16 Budesonide/Formoterol Fumarate [Symbicort HFA 160-4.5 mcg Inhaler 6 gm] 2 puff IH Q12 11/28/16 Furosemide [Lasix] 40 mg PO DAILY 11/28/16 Glipizide [Glipizide ER] 2.5 mg PO DAILY 11/28/16 Multivit-Min/FA/Herbal No.245 [Alive Women's Gummy Vitamins] 1 tab PO DAILY Potassium Chloride [K-Tab ER] 20 meq PO DAILY 11/28/16 Tiotropium [place] [Spiriva Respimat] 1 puff IH DAILY 11/28/16 Ferrous Sulfate 324 mg PO DAILY 12/01/16 Folic Acid 0.4 mg PO DAILY 12/01/16 Acetaminophen [Tylenol 325 mg Tablet] 650 mg PO Q8HP PRN tablet 12/06/16 Alprazolam [Xanax 0.25 mg Tablet] 0.25 mg PO DAILYP PRN #30 tablet 12/06/16 Digoxin [Lanoxin 0.125 mg Tablet] 0.125 mg PO DAILY #30 tablet 12/06/16 Diltiazem HCl [Cardizem Cd 180 mg Capsule] 180 mg PO Q12 #60 capsule.cr Fluticasone Propionate [Flonase Nasal [place] 50 Mcg/[place] 16 gm] 2 spray NASL Q12 #1 spray.pump 12/06/16 Guaifenesin [Robitussin Syrup 200 mg/10 ml Ud Cup] 200 mg PO Q4HP PRN #240 ml Ipratropium/Albuterol Sulfate [Duoneb 3 ml Ampul] 3 ml NEB RTQ6HP PRN #90 vial.neb 12/06/16 Metoprolol Succinate [Toprol Xl 50 mg Tab.sr] 50 mg PO DAILY #30 tab.sr.24h Montelukast Sodium [Singulair 10 mg Tablet] 10 mg PO QHS #30 tablet 12/06/16 Prednisone [Deltasone 20 mg Tablet] 20 mg PO DAILY #5 tablet 12/06/16 History of Present Illness Patient complains of: Increasing shortness of breath and dyspnea History of Present Illness: TERE VALERIO-year-old -[place] female past medical history of COPD and tobacco abuse on home oxygen. She presents to [facility] on 11/28/2016 complaining of increasing shortness of breath and dyspnea. She states her symptoms began 5 days prior and have progressively worsened. She has prior hospitalization in April where she required intubation intubation at that time because of respiratory failure. She was found to be hypoxic on 2 L oxygen saturation of 82%. She was also tachypneic in significant distress. She required several nebulizer treatments before she began to improve. Patient also has a history of underlying atrial fibrillation was found to be in atrial fibrillation with rapid ventricular response. Patient does admit freely to being noncompliant with her medications. She required multiple nebulizer treatments and IV steroids should be improved. Aaliyah. Hospital Course Hospital Course: She was placed on BiPAP therapy and admitted to the [facility] on telemetry. She continued to have atrial fibrillation with rapid ventricular response. Cardiology was consulted, Dr. Gaviria saw the patient in consult. He placed patient on IV diltiazem infusion. She later had periods of atrial flutter as well. Her medications were adjusted by cardiology she eventually was rate controlled. She is continued on Eliquis therapy for anticoagulation. Pulmonary was consulted during hospitalization. Dr. Talbot, saw the patient in consult. He adjusted her pulmonary inhalers and nebulizer treatment. She was kept on BiPAP therapy intermittently throughout her hospitalization at time. Bedside spirometry was obtained which shows FEV1 of less than 50% of predicted. She will be discharged home with [facility] BiPAP at night. Follow-up appointments were made with patient's primary care provider, Dr. Talbto, and Physical Exam Vital Signs: Temp Pulse Resp BP Pulse Ox 97.6 F 88 21 H 111/63 98 12/06/16 11:23 12/06/16 14:00 12/06/16 13:25 12/06/16 11:23 12/06/16 13:25 Intake & Output 12/05/16 12/06/16 12/07/16 06:59 06:59 06:59 Intake Total 1805 1378 518 Output Total 1999 3050 375 Balance -195 -8042 143 Weight 63.8 kg 63 kg General appearance: PRESENT: no acute distress, thin, well-developed, well- nourished Head exam: PRESENT: atraumatic, normocephalic Eye exam: PRESENT: conjunctiva pink, EOMI, PERRLA. ABSENT: scleral icterus Ear exam: PRESENT: normal external ear exam Mouth exam: PRESENT: moist, tongue midline Neck exam: ABSENT: carotid bruit, JVD, lymphadenopathy, thyromegaly Respiratory exam: PRESENT: clear to auscultation martínez, decreased breath sounds, symmetrical, unlabored Cardiovascular exam: PRESENT: irregular rhythm, +S1, +S2, systolic murmur Pulses: PRESENT: normal dorsalis pedis pul GI/Abdominal exam: PRESENT: normal bowel sounds, soft. ABSENT: distended, guarding, mass, organolmegaly, rebound, tenderness Rectal exam: PRESENT: deferred Extremities exam: PRESENT: full ROM. ABSENT: calf tenderness, clubbing, pedal edema Neurological exam: PRESENT: alert, awake, oriented to person, oriented to place , oriented to time, oriented to situation, CN II-XII grossly intact. ABSENT: motor sensory deficit Psychiatric exam: PRESENT: appropriate affect, normal mood. ABSENT: homicidal ideation, suicidal ideation Skin exam: PRESENT: dry, intact, warm. ABSENT: cyanosis, rash Results Laboratory Results: 12/01/16 05:39 12/04/16 06:12 12/06/16 05:25 VBG pH 7.45 H VBG pCO2 51.6 VBG HCO3 35.0 H VBG Base Excess 9.5 12/02/16 12/03/16 05:45 06:35 Troponin I < 0.012 NT-Pro-B Natriuret Pep 791 Impressions: Chest X-Ray 12/01/16 06:00 IMPRESSION: No significant interval change. No acute findings. Other findings as noted above Qualifiers PATEINT BEING DISCHARGED WITH ANY OF THE FOLLOWING DIAGNOSIS?: No Plan Discharge Plan: Home with family Time Spent: Less than 30 Minutes
--- NOTE | 2016-12-06 16:38 | Pulmonary Function Test ---
Pulmonary Function Test Date of Procedure:: 12/06/16 INDICATION:: Respiratory failure Referring Provider: Lizz Wilkes NP American History Teacher: Martha Carpenter CAD ADMINISTRATOR, DOUGH MIXER - Report Spirometry: FVC 1.79 L 53% postbronchodilator therapy 1.63 L 48% FEV1 0.66 L 24% postbronchodilator therapy 0.71 L 25% FEV1/FVC % 37 postbronchodilator therapy 44 predicted 79 FEF 25-75% 0.37 13% postbronchodilator therapy 0.40 14% Impression: Severe obstructive ventilatory defect
[2016-12-06 18:12] VITALS: BP 118/78
--- NOTE | 2016-12-07 10:50 | PDOC PROGRESS REPORT ---
Subjective Progress Note for:: 12/06/16 Subjective:: Patient seems to be doing better with gradual improvement. Pt is denying any chest arm or neck discomfort. Patient denying any PND, orthopnea. Patient denied any sustained palpitations, dizziness, syncope, near syncope. Patient denying any fever chills. Patient denying any other significant discomfort. Patient is maintaining atrial flutter, heart rate response intermittently high but much better controlled than yesterday. Patient is wanting to be discharged. Patient has ambulated without much difficulty. Discussed that she would need to consider ablation sooner than later. However she still wants to schedule this as an outpatient. In this regard I got in touch with Dr. Ming Rivas at [facility]. Discussed case with him, he feels patient is a adequate candidate for consideration of ablation. Have faxed patient's EKG and rhythm strips to Dr. Ming Rivas. Review of systems: Rest review of systems negative. Medications: Medications have been reviewed. Physical Exam Vital Signs: Temp Pulse Resp BP Pulse Ox 98.6 F 88 18 118/78 96 12/06/16 18:09 12/06/16 18:09 12/06/16 18:09 12/06/16 18:09 12/06/16 18:09 Intake & Output 12/05/16 12/06/16 12/07/16 06:59 06:59 06:59 Intake Total 1805 1378 518 Output Total 1999 2310 375 Balance -195 -4072 143 Weight 63.8 kg 63 kg Exam: GENERAL: well-nourished and in no acute distress. Alert and oriented x3 HEAD: Atraumatic, normocephalic. EYES: Pupils equal round and reactive to light, extraocular movements intact, sclera anicteric, conjunctiva are normal. ENT: TMs normal, nares patent, oropharynx clear without exudates. Moist mucous membranes. No oral ulcerations or bleeding gums noted NECK: supple without lymphadenopathy. Trachea is central. No cervical or axillary lymphadenopathy noted. Carotids are 2+, JVD WNL LUNGS: Respiration seems nonlabored, no significant accessory muscle action noted. Breath sounds clear to auscultation bilaterally and equal noted. No wheezes rales or rhonchi noted. No significant dullness noted on percussion. CHEST: Palpation of the chest wall shows no significant chest wall tenderness. No other significant abnormalities noted. 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 ABDOMEN: Soft, no significant tenderness appreciated, normoactive bowel sounds. No guarding, no rebound. No rigidity noted . No masses appreciated. EXTREMITIES: Pedal pulses are 1-2+, no calf tenderness noted. No clubbing or cyanosis.trace to 1+ pedal edema noted NEUROLOGICAL: Focused neurological exam showed no significant neurologic deficit. Normal speech, no focal weakness appreciated. PSYCH: Normal mood, normal affect. Judgment and insight within normal limits. SKIN: No significant ecchymosis, rash, ulcerations or signs of pruritus noted. MUSCULOSKELETAL EXAM: No significant joint swelling noted. Results Laboratory Results: 12/01/16 05:39 12/04/16 06:12 12/06/16 05:25 VBG pH 7.45 H VBG pCO2 51.6 VBG HCO3 35.0 H VBG Base Excess 9.5 12/02/16 12/03/16 05:45 06:35 Troponin I < 0.012 NT-Pro-B Natriuret Pep 791 EKG Comments: EKG rhythm strips reviewed. Prior EKGs reviewed. It shows persistent atrial flutter. However today it seems to be atrial fibrillation. Impressions: Chest X-Ray 12/01/16 06:00 IMPRESSION: No significant interval change. No acute findings. Other findings as noted above Assessment & Plan - Diagnosis (1) Atrial flutter with rapid ventricular response Is this a current diagnosis for this admission?: Yes (2) Acute and chronic respiratory failure Qualifiers: Respiratory failure complication: hypoxia and hypercapnia Qualified Code(s): J96.21 - Acute and chronic respiratory failure with hypoxia Is this a current diagnosis for this admission?: Yes (3) COPD exacerbation Is this a current diagnosis for this admission?: Yes (4) Congestive heart failure Qualifiers: Congestive heart failure type: diastolic Is this a current diagnosis for this admission?: Yes (5) Coronary artery disease Qualifiers: Coronary Disease-Associated Artery/Lesion type: algaaciq artery Associated angina: angina presence unspecified Is this a current diagnosis for this admission?: Yes - Notes Notes: At my recommendation, patient was placed on Cardizem CD 240 mg p.o. daily, patient also placed on metoprolol succinate at 50 mg p.o. daily, of note patient was on metoprolol 100 twice daily at home. Patient seems to be tolerating this regimen without any significant problems. equipment monitor phototypesetting, this was reviewed. Twelve-lead EKG, these were reviewed. Chest x-ray: Results reviewed. Medications: These were reviewed. 2D echocardiogram results were reviewed with the patient. Labs: These were reviewed. Patient's prior EKG and rhythm strips faxed to Dr. Ming Rivas. Treatment/care plan: This was reviewed and discussed with involved personnel in the care of this patient and patient. Atrial flutter with rapid ventricular response: Today on monitor patient seems to have degenerated into atrial fibrillation but rate is well controlled. Continue current medication for rate control and chronic anticoagulation. Patient's EKGs and rhythm strips faxed to Dr. Ming Rivas. He is going to call patient and schedule this as an outpatient. Acute on chronic respiratory failure: Patient has been advised to quit smoking. Continue with bronchodilator therapy and oxygen supplementation. This has improved. PFT shows severe COPD and obstruction. COPD patient encouraged to avoid first-hand and secondhand smoking. Patient also advised to avoid environmental pollutants. Patient to use bronchodilator and steroid therapy as has been prescribed by PMD and other specialists. This is improving. CHF: This seems compensated on clinical exam. Patient was educated in CHF pathway. This should include salt and fluid restriction, daily weighing, adjustment of diuretic therapy based on weight gain et cetera. Patient to be educated that if there is gain of more than 2 pounds in a day or more than 5 pounds in a week, this indicates fluid retention and patient may need to adjust the diuretic therapy. Symptoms associated with CHF exacerbation to be discussed with the patient. This could include rapid weight gain, abdominal bloating, increased shortness of breath, fatigue, tiredness, cardiac arrhythmias et cetera. CAD: Patient has CAD. Currently stable without any angina or angina equivalent symptoms. Discussed symptoms associated with unstable angina, acute coronary syndrome, myocardial infarction etc. Aggressive risk factor modification advised. Patient to report any further problems. Patient to follow with her boom crane operator of her choice. - Time Time with patient: Greater than 35 minutes - CODE STATUS was discussed, patient remains full code. Surrogate decision-maker unchanged. Multiple medical problems were addressed. More than 50% of the time spent coordinating care, discussing management plans with involved caregivers. Management plans discussed with involved personnels. Medical decision making was of moderate to high complexity, patient's has multiple comorbidities. Medications reviewed and adjusted accordingly: Yes
== END 2016-12-06 19:57 | disposition home health service (06) | DRG 190 ==
LOC: ER 05:28 → UNDOADMIN 08:46 → EH 08:46 → 3S 12:21
PROC: 5A09457 Assistance with Respiratory Ventilation, 24-96 Consecutive Hours, Continuous Positive Airway Pressure (ICD-10-PCS; principal; 2016-11-28)
PROC: 3E0F73Z Introduction of Anti-inflammatory into Respiratory Tract, Via Natural or Artificial Opening (ICD-10-PCS; 2016-11-28)
DX: J44.1 Chronic obstructive pulmonary disease with (acute) exacerbation (principal); J96.21 Acute and chronic respiratory failure with hypoxia; J96.22 Acute and chronic respiratory failure with hypercapnia; I50.32 Chronic diastolic (congestive) heart failure; I48.4 Atypical atrial flutter; J44.0 Chronic obstructive pulmonary disease with (acute) lower respiratory infection; J20.9 Acute bronchitis, unspecified; F41.9 Anxiety disorder, unspecified; E09.9 Drug or chemical induced diabetes mellitus without complications; I11.0 Hypertensive heart disease with heart failure; D64.9 Anemia, unspecified; I48.0 Paroxysmal atrial fibrillation; M19.90 Unspecified osteoarthritis, unspecified site; I25.10 Atherosclerotic heart disease of native coronary artery without angina pectoris; E78.5 Hyperlipidemia, unspecified; G47.30 Sleep apnea, unspecified; I45.81 Long QT syndrome; B95.3 Streptococcus pneumoniae as the cause of diseases classified elsewhere; I25.119 Atherosclerotic heart disease of native coronary artery with unspecified angina pectoris; I25.2 Old myocardial infarction; Z99.81 Dependence on supplemental oxygen; Z79.01 Long term (current) use of anticoagulants; Z79.899 Other long term (current) drug therapy; Z88.3 Allergy status to other anti-infective agents; Z91.14 Patient's other noncompliance with medication regimen; Z82.49 Family history of ischemic heart disease and other diseases of the circulatory system; Z83.6 Family history of other diseases of the respiratory system
CPT/HCPCS: 36415; 36600; 71010; 71020; 80048; 80053; 82550; 82553; 82803; 82962; 83735; 83880; 84439; 84443; 84481; 84484; 85025; 85379; 87070; 87077; 87186; 87205; 93005; 93010; 93306; 94060; 94640; 94660; 94667; 94668; 96365; 99291; J1160; J1815; J1940; J1956; J2930; J3475; J3490; J7512; J7614; J7620

== ENCOUNTER 2016-12-20 22:36 | Inpatient (IN) | payer MEDICAID, MEDICARE ==
[2016-12-20] MEDS ORDERED: IPRATROPIUM/ALBUTEROL 0.5-2.5 MG/3 ML AMPUL NEB ONE (23:04)
--- NOTE | 2016-12-20 23:11 | ER Document Report ---
ED General - General Stated Complaint: SHORTNESS OF BREATH Time Seen by Provider: 12/20/16 22:53 Notes: Patient is a 56-year-old female presents with complaint of difficulty breathing and felt like her heart is beating fast. She has a history of recurrent atrial fibrillation and atrial flutter. She has history of difficulty breathing. She denies any fevers. No vomiting. No chest pain. She says her symptoms have been worsening over last 2 days. She was just discharged from the hospital 2 weeks ago. During that time to the hospital several days due to continued atrial flutter and atrial fibrillation. She was started on the digoxin and given home BiPAP. Patient says she has not missed any her medication dosages. She admits that she has not been using the BiPAP every night as she is supposed to do. She has had slight increased swelling in her lower extremities. No other complaints at this time. TRAVEL OUTSIDE OF THE [place] 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 Renal/ Medical History: Denies: Hx Peritoneal Dialysis Musculoskeltal Medical History: Reports Hx Arthritis Past Surgical History: Reports: Hx Cardiac Catheterization, Hx Section - Immunizations Immunizations up to date: Yes Hx Diphtheria, Pertussis, Tetanus Vaccination: Yes Hx Pneumococcal Vaccination: 05/18/12 Review of Systems - Review of Systems Notes: My Normal Review Basic REVIEW OF SYSTEMS: CONSTITUTIONAL : Denies fever, chills, or sweats. Denies recent illness. EENT: Denies eye, ear, throat, or mouth pain or symptoms. Denies nasal or sinus congestion. CARDIOVASCULAR: Denies chest pain. Palpitations. RESPIRATORY: Some difficulty breathing. GASTROINTESTINAL: Denies abdominal pain. Denies nausea, vomiting, or diarrhea. Denies constipation. Last BM: GENITOURINARY: Denies difficulty urinating, painful urination, burning, frequency, or blood in urine. MUSCULOSKELETAL: Denies neck or back pain or joint pain or swelling. SKIN: Denies rash or skin lesions. HEMATOLOGIC : Denies easy bruising or bleeding. LYMPHATIC: Denies swollen, enlarged glands. NEUROLOGICAL: Denies altered mental status or loss of consciousness. Denies headache. Denies weakness or paralysis or loss of use of either side. Denies problems with gait or speech. Denies sensory or motor loss. ALL OTHER SYSTEMS REVIEWED AND NEGATIVE. Physical Exam - Vital signs Vitals: Resp BP Pulse Ox 20 111/76 94 12/20/16 22:44 12/20/16 22:44 12/20/16 22:44 - Notes Notes: General Appearance: Well nourished, alert, cooperative, no acute distress, no obvious discomfort. Vitals: reviewed, See vital signs table. Head: no swelling or tenderness to the head Eyes: PERRL, EOMI, Conjuctiva clear Mouth: No decreasd moisture Neck: Supple, no neck tenderness, No thyromegaly Lungs: recurrent Cough. Diminished air exchange bilaterally. No wheezing or rales. Heart: Normal rate, Regular rythm, No murmur, no rub Abdomen: Normal BS, soft, No rigidity, No abdominal tenderness, No guarding, no rebound, no abdominal masses, no organomegaly Extremities: strength 5/5 in all extremities, good pulses in all extremities, no swelling or tenderness in the extremities, 1 to 2+ bilateral pedal edema. Skin: warm, dry, appropriate color, no rash Neuro: speech clear, oriented x 3, normal affect, responds appropriately to questions. Course - Re-evaluation Re-evalutation: 12/21/16 05:46 Patient was doing very well on the BiPAP. Unfortunately after removing the BiPAP she almost immediately started having difficulty breathing. Her oxygen saturation went down to 89%. Upon ambulating to the bathroom she went down to 85% and her heart rate went up to 120. Upon placing the BiPAP back on her she is starting to feel some improved. Unfortunately patient is not functioning well off BiPAP at this time. Her chest x-ray does not show increase edema however she does have some increase edema in her legs and therefore I will give her some Lasix. Her BNP is slightly elevated. I have given her some breathing treatments as well as Solu-Medrol and magnesium. Her lung lópez are diminished but she does not have a lot of wheezing. Due to recurrent hypoxemia felt appropriate to consider admission. I did speak with the hospitalist who agrees to evaluate the patient for admission. Dictation of this chart was performed using voice recognition software; therefore, there may be some unintended grammatical errors. - Vital Signs Vital signs: Temp Pulse Resp BP Pulse Ox 98.1 F 19 109/65 99 12/20/16 23:17 12/21/16 05:19 12/21/16 05:00 12/21/16 05:19 - Laboratory Result Diagrams: 12/20/16 22:59 12/20/16 22:59 Laboratory results interpreted by me: 12/20/16 12/20/16 12/20/16 22:59 22:59 22:59 Hgb 11.0 L Hct 35.6 L MCH 24.7 L MCHC 30.7 L RDW 19.3 H VBG HCO3 Sodium 145.6 H Carbon Dioxide 34 H Glucose 74 L NT-Pro-B Natriuret Pep 1570 H 12/20/16 22:59 Hgb Hct MCH MCHC RDW VBG HCO3 32.6 H Sodium Carbon Dioxide Glucose NT-Pro-B Natriuret Pep - EKG Interpretation by Me Additional EKG results interpreted by me: 12/20/16 23:06 EKG is reviewed and interpreted by me. EKG shows atrial flutter with a rate of [address] segment elevation or depression. No ischemic T-wave inversions. QRS duration normal range. QTc was slightly prolonged. Old EKG for comparison is from December 03, 2016. Discharge - Discharge Clinical Impression: Hypoxemia Dyspnea Qualifiers: Dyspnea type: unspecified Qualified Code(s): R06.00 - Dyspnea, unspecified Atrial flutter Qualifiers: Atrial flutter type: unspecified Qualified Code(s): I48.92 - Unspecified atrial flutter Condition: Stable Disposition: ADMITTED INPATIENT Admitting Provider: Hospitalist Unit Admitted: [facility]
[2016-12-20] MEDS ORDERED: METHYLPREDNISOLONE INJ 125 MG/2 ML SDV IV ONE (23:12)
[2016-12-20 23:20] LABS: ABSOLUTE BASOPHILS # (AUTO) 0.1 10^3/uL (0.0-0.2); ABSOLUTE EOSINOPHILS # (AUTO) 0.1 10^3/uL (0.0-0.6); ABSOLUTE LYMPHOCYTES (AUTO) 1.1 10^3/uL (0.5-4.7); ABSOLUTE MONOCYTES (AUTO) 0.6 10^3/uL (0.1-1.4); ABSOLUTE NEUT (AUTO) 2.9 10^3/uL (1.7-8.2); BASOPHILS % (AUTO) 1.3 % (0-2); EOSINOPHILS % (AUTO) 1.8 % (0-6); HEMATOCRIT 35.6 % (36.0-47.0); HGB HCT DIFFERENCE -2.6; MEAN CORPUSCULAR HEMOGLOBIN 24.7 pg (27.0-33.4); MEAN CORPUSCULAR HGB CONC 30.7 g/dL (32.0-36.0); MEAN CORPUSCULAR VOLUME 81 fl (80-97); MONOCYTES % (AUTO) 11.8 % (3-13); RED BLOOD COUNT 4.43 10^6/uL (3.72-5.28); RED CELL DISTRIBUTION WIDTH 19.3 % (11.5-14.0); SEGMENTED NEUTROPHILS % (AUTO) 61.1 % (42-78); WHITE BLOOD COUNT 4.7 10^3/uL (4.0-10.5)
[2016-12-20 23:22] LABS: VENOUS BLOOD BASE EXCESS 6.8 mmol/L; VENOUS BLOOD HCO3 32.6 mmol/L (20-32); VENOUS BLOOD PH 7.42 (7.30-7.42)
--- NOTE | 2016-12-20 23:32 | RADIOLOGY REPORT (SQ) ---
EXAM DESCRIPTION: CHEST SINGLE VIEW COMPLETED DATE/TIME: 12/20/2016 10:59 pm REASON FOR STUDY: SOB COMPARISON: 12/01/2016 EXAM PARAMETERS: NUMBER OF VIEWS: One view. TECHNIQUE: Single frontal radiographic view of the chest acquired. RADIATION DOSE: NA LIMITATIONS: None. FINDINGS: LUNGS AND PLEURA: No acute opacities, masses or pneumothorax. No pleural effusion. MEDIASTINUM AND HILAR STRUCTURES: Stable. HEART AND VASCULAR STRUCTURES: Stable. BONES: No acute findings. HARDWARE: None in the chest. OTHER: No other significant finding. IMPRESSION: NO ACUTE RADIOGRAPHIC FINDING IN THE CHEST. TECHNICAL DOCUMENTATION: JOB ID: [id number]
[2016-12-20 23:45] LABS: ALANINE AMINOTRANSFERASE 28 U/L (9-52); ALBUMIN 3.5 g/dL (3.5-5.0); ALKALINE PHOSPHATASE 72 U/L (38-126); ANION GAP 8 (5-19); ASPARTATE AMINO TRANSFERASE 27 U/L (14-36); BILIRUBIN,DIRECT 0.2 mg/dL (0.0-0.4); BILIRUBIN,TOTAL 0.4 mg/dL (0.2-1.3); BLOOD UREA NITROGEN 12 mg/dL (7-20); CALCIUM 9.1 mg/dL (8.4-10.2); CARBON DIOXIDE 34 mmol/L (22-30); CHLORIDE 104 mmol/L (98-107); CREATINE KINASE 62 U/L (30-135); CREATININE RESULT 0.82 mg/dL (0.52-1.25); GLUCOSE 74 mg/dL (75-110); MAGNESIUM 1.9 mg/dL (1.6-2.3); POTASSIUM 3.7 mmol/L (3.6-5.0); SODIUM 145.6 mmol/L (137-145); TOTAL PROTEIN 6.6 g/dL (6.3-8.2)
[2016-12-20 23:59] LABS: CREATINE KINASE MB 0.94 ng/mL (<4.55); TROPONIN I 0.014 ng/mL
[2016-12-21] MEDS: MAGNESIUM SULFATE/D5W 100 ML IV SCH ×2 (02:31→03:33)
[2016-12-21] MEDS ORDERED: IPRATROPIUM/ALBUTEROL 0.5-2.5 MG/3 ML AMPUL NEB ONE (05:39)
[2016-12-21] MEDS ORDERED: FUROSEMIDE INJ/PF 20 MG/2 ML SDV IV ONE (05:39)
--- NOTE | 2016-12-21 06:33 | PDOC H&P ---
History of Present Illness Admission Date/PCP: 12/21/16 06:06 CHANO CHERY MD Patient complains of: Shortness of breath History of Present Illness: TERE VALERIO is a 56 year old female with a past medical history of end- stage COPD, sleep apnea on home oxygen and BiPAP dependent with chronic bronchitis, atrial fibrillation, moderate mitral regurgitation, coronary artery disease, hypertension, diabetes, osteoarthritis and ongoing tobacco dependence. She had been in her usual state of health until approximately 8 hours prior to presentation developing extreme shortness of breath with minimal exertion and a nonproductive cough. Denies chest pain nausea vomiting or diaphoresis. In the emergency room she is found to have uncontrolled A. fib in the 130s she is started on BiPAP, Cardizem and referred to the hospital for admission. Patient admits noncompliance with BiPAP and tobacco. She admits feeling significantly better over the last 3 hours. 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 Musculoskeltal Medical History: Reports: Arthritis Hematology: Reports: Anemia Past Surgical History Past Surgical History: Reports: Cardiac Catheterization, Section Social History Information Source: Patient Smoking Status: Current Every Day Smoker Frequency of Alcohol Use: None Hx Recreational Drug Use: No Drugs: None Hx Prescription Drug Abuse: No - Advance Directive Resuscitation Status: Full Code Family History Family History: Reviewed & Not Pertinent, CAD, COPD, Hypertension Parental Family History Reviewed: Yes Children Family History Reviewed: Yes Sibling(s) Family History Reviewed.: Yes Medication/Allergy Home Medications: Apixaban [Eliquis 5 mg Tablet] 5 mg PO Q12 11/28/16 Budesonide/Formoterol Fumarate [Symbicort HFA 160-4.5 mcg Inhaler 6 gm] 2 puff IH Q12 11/28/16 Furosemide [Lasix] 40 mg PO DAILY 11/28/16 Glipizide [Glipizide ER] 2.5 mg PO DAILY 11/28/16 Multivit-Min/FA/Herbal No.245 [Alive Women's Gummy Vitamins] 1 tab PO DAILY Potassium Chloride [K-Tab ER] 20 meq PO DAILY 11/28/16 Tiotropium Colon [Spiriva Respimat] 1 puff IH DAILY 11/28/16 Ferrous Sulfate 324 mg PO DAILY 12/01/16 Folic Acid 0.4 mg PO DAILY 12/01/16 Acetaminophen [Tylenol 325 mg Tablet] 650 mg PO Q8HP PRN tablet 12/06/16 Alprazolam [Xanax 0.25 mg Tablet] 0.25 mg PO DAILYP PRN #30 tablet 12/06/16 Digoxin [Lanoxin 0.125 mg Tablet] 0.125 mg PO DAILY #30 tablet 12/06/16 Diltiazem HCl [Cardizem Cd 180 mg Capsule] 180 mg PO Q12 #60 capsule.cr Fluticasone Propionate [Flonase Nasal [place] 50 Mcg/[place] 16 gm] 2 spray NASL Q12 #1 spray.pump 12/06/16 Guaifenesin [Robitussin Syrup 200 mg/10 ml Ud Cup] 200 mg PO Q4HP PRN #240 ml Ipratropium/Albuterol Sulfate [Duoneb 3 ml Ampul] 3 ml NEB RTQ6HP PRN #90 vial.neb 12/06/16 Metoprolol Succinate [Toprol Xl 50 mg Tab.sr] 50 mg PO DAILY #30 tab.sr.24h Montelukast Sodium [Singulair 10 mg Tablet] 10 mg PO QHS #30 tablet 12/06/16 Prednisone [Deltasone 20 mg Tablet] 20 mg PO DAILY #5 tablet 12/06/16 Allergies/Adverse Reactions: erythromycin base [Erythromycin Base] Allergy (Mild, Verified 06/10/16 21:58) Review of Systems Constitutional: ABSENT: chills, fever(s), headache(s), weight gain, weight loss Eyes: ABSENT: visual disturbances Ears: ABSENT: hearing changes Cardiovascular: PRESENT: palpitations. ABSENT: chest pain, dyspnea on exertion , edema, orthropnea Respiratory: PRESENT: cough, dyspnea. ABSENT: hemoptysis, sputum Gastrointestinal: ABSENT: abdominal pain, constipation, diarrhea, hematemesis, hematochezia, nausea, vomiting Genitourinary: ABSENT: dysuria, hematuria Musculoskeletal: ABSENT: joint swelling Integumentary: ABSENT: rash, wounds Neurological: ABSENT: abnormal gait, abnormal speech, confusion, dizziness, focal weakness, syncope Psychiatric: ABSENT: anxiety, depression, homidical ideation, suicidal ideation Endocrine: ABSENT: cold intolerance, heat intolerance, polydipsia, polyuria Hematologic/Lymphatic: ABSENT: easy bleeding, easy bruising Physical Exam Vital Signs: Temp Pulse Resp BP Pulse Ox 98.1 F 21 H 109/60 99 12/20/16 23:17 12/21/16 06:01 12/21/16 06:01 12/21/16 06:01 General appearance: PRESENT: cooperative, mild distress, thin Head exam: PRESENT: atraumatic, normocephalic Eye exam: PRESENT: conjunctiva pink, EOMI, PERRLA. ABSENT: scleral icterus Ear exam: PRESENT: normal external ear exam Mouth exam: PRESENT: moist, tongue midline Neck exam: ABSENT: carotid bruit, JVD, lymphadenopathy, thyromegaly Respiratory exam: PRESENT: accessory muscle use, crackles, prolonged expiratory phas, retraction, symmetrical, tachypnea, wheezes. ABSENT: clear to auscultation martínez, rhonchi, unlabored Cardiovascular exam: PRESENT: irregular rhythm, tachycardia. ABSENT: bradycardia, clicks, diastolic murmur, gallop Pulses: PRESENT: normal dorsalis pedis pul Vascular exam: PRESENT: normal capillary refill GI/Abdominal exam: PRESENT: normal bowel sounds, soft. ABSENT: distended, guarding, mass, organolmegaly, rebound, tenderness Rectal exam: PRESENT: deferred Extremities exam: PRESENT: +1 edema - Symmetric edema to the lower extremity. ABSENT: calf tenderness, clubbing Musculoskeletal exam: PRESENT: ambulatory Neurological exam: PRESENT: alert, awake, oriented to person, oriented to place , oriented to time, oriented to situation, CN II-XII grossly intact. ABSENT: motor sensory deficit Psychiatric exam: PRESENT: appropriate affect, normal mood. ABSENT: homicidal ideation, suicidal ideation Skin exam: PRESENT: dry, intact, warm. ABSENT: cyanosis, rash Results Impressions: Chest X-Ray 12/20/16 22:44 IMPRESSION: NO ACUTE RADIOGRAPHIC FINDING IN THE CHEST. Assessment & Plan - Diagnosis (1) Atrial flutter Qualifiers: Atrial flutter type: unspecified Qualified Code(s): I48.92 - Unspecified atrial flutter Is this a current diagnosis for this admission?: YesPlan: Optimize Cardizem and Lopressor when wheezing subsides continue Eliquis. (2) Dyspnea Qualifiers: Dyspnea type: unspecified Qualified Code(s): R06.00 - Dyspnea, unspecified Is this a current diagnosis for this admission?: YesPlan: Supplemental oxygen and BiPAP. Flutter valve (3) Acute and chronic respiratory failure Qualifiers: Respiratory failure complication: hypoxia and hypercapnia Qualified Code(s): J96.21 - Acute and chronic respiratory failure with hypoxia Is this a current diagnosis for this admission?: YesPlan: Xopenex and Atrovent scheduled and as needed, Flonase, empiric antibiotics for chronic bronchitis consider steroids. (4) Tobacco abuse counseling Is this a current diagnosis for this admission?: YesPlan: Tobacco Dependence patient received tobacco cessation counseling and offered nicotine replacement options (5) Acute exacerbation of chronic bronchitis Is this a current diagnosis for this admission?: YesPlan: Xopenex, Atrovent, Singulair, Flonase, consider antibiotics and prednisone. Flutter valve - Time Time Spent: 50 to 70 Minutes - Inpatient Certification Medical Necessity: Need Close Monitoring Due to Risk of Patient Decompensation
[2016-12-21] MEDS ORDERED: LEVALBUTEROL HCL NEB 1.25 MG/3 ML AMPUL NEB PRN (06:34)
[2016-12-21] MEDS ORDERED: IPRATROPIUM BROMIDE 0.02% NEB 0.5 MG/2.5 ML AMPUL NEB PRN (06:34)
[2016-12-21] MEDS ORDERED: ALPRAZOLAM 0.25 MG TABLET PO PRN (06:38)
[2016-12-21] MEDS ORDERED: GLUCAGON,HUMAN RECOMB 1 MG INJ IM PRN (06:45)
[2016-12-21] MEDS ORDERED: DEXTROSE 50%-WATER 25 GM/50 ML DISP.SYRIN IV PRN ×2 (06:45)
[2016-12-21] MEDS ORDERED: DEXTROSE 40% GEL 15 GM TUBE PO PRN ×2 (06:45)
[2016-12-21] MEDS ORDERED: GUAIFENESIN SYRP 200 MG/10 ML UDC PO PRN (07:32)
[2016-12-21 07:36] LABS: MAGNESIUM 2.2 mg/dL (1.6-2.3); PHOSPHORUS 4.4 mg/dL (2.5-4.5)
[2016-12-21 07:49] LABS: CREATINE KINASE MB 1.25 ng/mL (<4.55)
[2016-12-21 07:51] LABS: TROPONIN I < 0.012 ng/mL
--- NOTE | 2016-12-21 07:59 | EKG REPORT ---
SEVERITY:- ABNORMAL ECG - ATRIAL FLUTTER, A-RATE 272 BORDERLINE RIGHT AXIS DEVIATION : Confirmed by: Ian Gutierrez MD 21-Dec-2016 07:58:44
[2016-12-21] MEDS: IPRATROPIUM BROMIDE 0.02% NEB 0.5 MG/2.5 ML AMPUL NEB SCH ×3 (08:57→20:42)
[2016-12-21] MEDS: LEVALBUTEROL HCL NEB 1.25 MG/3 ML AMPUL NEB SCH ×3 (08:57→20:43)
[2016-12-21] MEDS ORDERED: (PENDING PHARMACY ID) (Tiotropium Bromide [Spiriva Respimat] 1 PUFF) IH SCH (10:00)
[2016-12-21] MEDS ORDERED: (PENDING PHARMACY ID) (Folic Acid [Folic Acid] 0.4 MG) PO SCH (10:00)
[2016-12-21] MEDS ORDERED: GLIPIZIDE XL 2.5 MG TAB.ER.24 PO SCH (10:00)
[2016-12-21] MEDS ORDERED: PREDNISONE 20 MG TABLET PO SCH (10:00)
[2016-12-21] MEDS: FERROUS SULFATE 325 MG TABLET PO SCH (10:23)
[2016-12-21] MEDS: DOCUSATE SODIUM 100 MG CAPSULE PO SCH ×2 (10:24→18:00)
[2016-12-21] MEDS: FOLIC ACID 1 MG TABLET PO SCH (10:24)
[2016-12-21] MEDS: DIGOXIN 0.125 MG TABLET PO SCH (10:25)
[2016-12-21] MEDS: DOXYCYCLINE HYCLATE 100 MG TABLET PO SCH ×2 (10:25→21:50)
[2016-12-21] MEDS: DILTIAZEM HCL 180 MG CAPSULE.CR PO SCH ×2 (10:26→21:49)
[2016-12-21] MEDS: PREDNISONE 20 MG TABLET PO SCH ×2 (10:26→18:00)
[2016-12-21] MEDS: MULTIVITAMIN TABLET PO SCH (10:27)
[2016-12-21] MEDS: METOPROLOL SUCCINATE 50 MG TAB.SR.24H PO SCH (10:27)
[2016-12-21] MEDS: APIXABAN 5 MG TABLET PO SCH ×2 (10:37→21:49)
[2016-12-21] MEDS: FLUTICASONE NASAL SPRAY 50 MCG/SPRY 120 SPRAY/16 GM NASL SCH ×2 (12:28→21:50)
[2016-12-21] MEDS: BUDESONIDE/FORMOTEROL 160-4.5 MCG 60 PUFF/6 GM MDI IH SCH ×2 (12:29→21:50)
[2016-12-21 13:59] LABS: CREATINE KINASE MB 1.19 ng/mL (<4.55)
[2016-12-21 14:01] LABS: TROPONIN I < 0.012 ng/mL
[2016-12-21] MEDS ORDERED: ALPRAZOLAM 0.5 MG TABLET PO PRN (14:52)
--- NOTE | 2016-12-21 15:32 | PDOC PROGRESS REPORT ---
Subjective Progress Note for:: 12/21/16 Subjective:: Patient seen on rounds. She is resting on the side of the bed on nasal cannula. She appears in no respiratory distress. She states she became increasingly short of breath with increase in heat. She has no air conditioning at home. She states she has been slightly congested but is not producing any mucous. She denies any chest pain or palpitations. She states she has had increasing home stress caring for her 5 yr old granddaughter. Her mother is not around. She denies any other symptoms or complaints Physical Exam Vital Signs: Temp Pulse Resp BP Pulse Ox 97.4 F 105 H 22 H 129/90 H 92 12/21/16 09:44 12/21/16 14:06 12/21/16 14:06 12/21/16 09:44 12/21/16 14:06 General appearance: PRESENT: no acute distress, thin, well-developed, well- nourished Head exam: PRESENT: atraumatic, normocephalic Eye exam: PRESENT: conjunctiva pink, EOMI, PERRLA. ABSENT: scleral icterus Ear exam: PRESENT: normal external ear exam Mouth exam: PRESENT: moist, tongue midline Neck exam: ABSENT: carotid bruit, JVD, lymphadenopathy, thyromegaly Respiratory exam: PRESENT: decreased breath sounds, rhonchi, tachypnea, unlabored Cardiovascular exam: PRESENT: irregular rhythm, +S1, +S2, systolic murmur - 3/6 mitral are. ABSENT: diastolic murmur, rubs Pulses: PRESENT: normal dorsalis pedis pul Vascular exam: PRESENT: normal capillary refill GI/Abdominal exam: PRESENT: normal bowel sounds, soft. ABSENT: distended, guarding, mass, organolmegaly, rebound, tenderness Rectal exam: PRESENT: deferred Extremities exam: PRESENT: full ROM. ABSENT: calf tenderness, clubbing, pedal edema Musculoskeletal exam: PRESENT: ambulatory, full ROM, normal inspection Psychiatric exam: PRESENT: anxious Skin exam: PRESENT: dry, intact, warm. ABSENT: cyanosis, rash Results Laboratory Results: 12/21/16 12/21/16 07:10 07:10 Phosphorus 4.4 Magnesium 2.2 TSH 0.27 L 12/21/16 12/21/16 12/21/16 07:10 07:10 13:19 Creatine Kinase 61 57 CK-MB (CK-2) 1.25 Troponin I < 0.012 12/21/16 13:19 Creatine Kinase CK-MB (CK-2) 1.19 Troponin I < 0.012 Impressions: Chest X-Ray 12/20/16 22:44 IMPRESSION: NO ACUTE RADIOGRAPHIC FINDING IN THE CHEST. Assessment & Plan - Diagnosis (1) Acute exacerbation of chronic bronchitis Is this a current diagnosis for this admission?: YesPlan: Patient on nebulizers and steroids. Will add mucinex and mucomyst (2) Atrial flutter Qualifiers: Atrial flutter type: unspecified Qualified Code(s): I48.92 - Unspecified atrial flutter Is this a current diagnosis for this admission?: YesPlan: Rate controlled at the present time (3) Acute and chronic respiratory failure with hypoxia Is this a current diagnosis for this admission?: YesPlan: Now saturating well on 2l/min (4) Congestive heart failure Qualifiers: Congestive heart failure type: diastolic Is this a current diagnosis for this admission?: YesPlan: Patient appears euvolemic. She has no peripheral edema (5) Coronary artery disease Qualifiers: Coronary Disease-Associated Artery/Lesion type: [place] artery Associated angina: without angina Is this a current diagnosis for this admission?: YesPlan: Continue home medications (6) DVT prophylaxis Is this a current diagnosis for this admission?: YesPlan: Patient is on Eliquis (7) Diabetes Qualifiers: Diabetes mellitus type: type 2 Is this a current diagnosis for this admission?: YesPlan: Continue home medications and sliding scale coverage - Time Time Spent with patient: 25-34 minutes Critical Time spent with patient: 15-24 minutes Medications reviewed and adjusted accordingly: Yes Anticipated discharge: Home with Homehealth
[2016-12-21] MEDS: INSULIN LISPRO 100 UNIT/ML 3 ML VIAL SUBCUT PRN ×2 (16:52→21:49)
[2016-12-21] MEDS: ACETAMINOPHEN 325 MG TABLET PO PRN (16:57)
[2016-12-21 19:53] LABS: CREATINE KINASE MB 0.98 ng/mL (<4.55)
[2016-12-21 19:58] LABS: TROPONIN I < 0.012 ng/mL
[2016-12-21] MEDS: MONTELUKAST SODIUM 10 MG TABLET PO SCH (21:49)
[2016-12-21] MEDS: GUAIFENESIN 600 MG TABLET.SA PO SCH (21:51)
[2016-12-22] MEDS: IPRATROPIUM BROMIDE 0.02% NEB 0.5 MG/2.5 ML AMPUL NEB SCH ×4 (02:15→20:43)
[2016-12-22] MEDS: LEVALBUTEROL HCL NEB 1.25 MG/3 ML AMPUL NEB SCH ×4 (02:17→20:43)
[2016-12-22 06:17] LABS: ABSOLUTE LYMPHOCYTES (AUTO) 0.5 10^3/uL (0.5-4.7); ABSOLUTE MONOCYTES (AUTO) 0.4 10^3/uL (0.1-1.4); ABSOLUTE NEUT (AUTO) 8.1 10^3/uL (1.7-8.2); BASOPHILS % (AUTO) 0.4 % (0-2); EOSINOPHILS % (AUTO) 0.1 % (0-6); HEMATOCRIT 33.3 % (36.0-47.0); HEMOGLOBIN 10.4 g/dL (12.0-15.5); HGB HCT DIFFERENCE -2.1; LYMPHOCYTES % (AUTO) 5.3 % (13-45); MEAN CORPUSCULAR HEMOGLOBIN 24.7 pg (27.0-33.4); MEAN CORPUSCULAR HGB CONC 31.1 g/dL (32.0-36.0); MEAN CORPUSCULAR VOLUME 79 fl (80-97); MONOCYTES % (AUTO) 4.3 % (3-13); RED CELL DISTRIBUTION WIDTH 18.7 % (11.5-14.0); SEGMENTED NEUTROPHILS % (AUTO) 89.9 % (42-78)
[2016-12-22 06:42] LABS: ANION GAP 6 (5-19); BLOOD UREA NITROGEN 20 mg/dL (7-20); CARBON DIOXIDE 31 mmol/L (22-30); CHLORIDE 101 mmol/L (98-107); CREATININE RESULT 0.67 mg/dL (0.52-1.25); GLUCOSE 166 mg/dL (75-110); POTASSIUM 4.4 mmol/L (3.6-5.0); SODIUM 138.2 mmol/L (137-145)
[2016-12-22] MEDS: DILTIAZEM HCL 180 MG CAPSULE.CR PO SCH ×2 (09:14→22:07)
[2016-12-22] MEDS: FOLIC ACID 1 MG TABLET PO SCH (09:14)
[2016-12-22] MEDS: DOCUSATE SODIUM 100 MG CAPSULE PO SCH ×2 (09:14→17:05)
[2016-12-22] MEDS: MULTIVITAMIN TABLET PO SCH (09:15)
[2016-12-22] MEDS: PREDNISONE 20 MG TABLET PO SCH ×2 (09:15→17:05)
[2016-12-22] MEDS: METOPROLOL SUCCINATE 50 MG TAB.SR.24H PO SCH (09:15)
[2016-12-22] MEDS: DIGOXIN 0.125 MG TABLET PO SCH (09:16)
[2016-12-22] MEDS: DOXYCYCLINE HYCLATE 100 MG TABLET PO SCH ×2 (09:16→22:06)
[2016-12-22] MEDS: POTASSIUM CHLORIDE 10 MEQ TABLET.SA PO SCH (09:16)
[2016-12-22] MEDS: FERROUS SULFATE 325 MG TABLET PO SCH (09:16)
[2016-12-22] MEDS: FLUTICASONE NASAL SPRAY 50 MCG/SPRY 120 SPRAY/16 GM NASL SCH ×2 (09:16→22:08)
[2016-12-22] MEDS: FUROSEMIDE 40 MG TABLET PO SCH (09:16)
[2016-12-22] MEDS: APIXABAN 5 MG TABLET PO SCH ×2 (09:17→22:06)
[2016-12-22] MEDS: BUDESONIDE/FORMOTEROL 160-4.5 MCG 60 PUFF/6 GM MDI IH SCH ×2 (09:17→22:08)
[2016-12-22] MEDS: GLIPIZIDE XL 2.5 MG TAB.ER.24 PO SCH (09:19)
[2016-12-22] MEDS: GUAIFENESIN 600 MG TABLET.SA PO SCH ×2 (09:20→22:09)
--- NOTE | 2016-12-22 15:51 | PDOC PROGRESS REPORT ---
Subjective Progress Note for:: 12/22/16 Subjective:: Patient seen on rounds. She is resting on the side of the bed on nasal cannula. She appears in no respiratory distress. She states she became increasingly short of breath with increase in heat. She has no air conditioning at home. She states she has been slightly congested but is not producing any mucous. She denies any chest pain or palpitations. She states she has had increasing home stress caring for her 5 yr old granddaughter. Her mother is not around. She denies any other symptoms or complaints Physical Exam Vital Signs: Temp Pulse Resp BP Pulse Ox 97.7 F 70 18 111/55 L 95 12/22/16 11:52 12/22/16 13:59 12/22/16 13:59 12/22/16 11:52 12/22/16 13:59 Intake & Output 12/21/16 12/22/16 12/23/16 06:59 06:59 06:59 Intake Total 355 Output Total 700 Balance -345 General appearance: PRESENT: no acute distress, thin, well-developed, well- nourished Head exam: PRESENT: atraumatic, normocephalic Eye exam: PRESENT: conjunctiva pink, EOMI, PERRLA. ABSENT: scleral icterus Ear exam: PRESENT: normal external ear exam Mouth exam: PRESENT: moist, tongue midline Neck exam: ABSENT: carotid bruit, JVD, lymphadenopathy, thyromegaly Respiratory exam: PRESENT: accessory muscle use, rhonchi, symmetrical, unlabored Cardiovascular exam: PRESENT: RRR. ABSENT: diastolic murmur, rubs, systolic murmur Pulses: PRESENT: normal carotid pulses Vascular exam: PRESENT: normal capillary refill GI/Abdominal exam: PRESENT: normal bowel sounds, soft. ABSENT: distended, guarding, mass, organolmegaly, rebound, tenderness Rectal exam: PRESENT: deferred Extremities exam: PRESENT: full ROM. ABSENT: calf tenderness, clubbing, pedal edema Musculoskeletal exam: PRESENT: ambulatory, full ROM, tenderness Neurological exam: PRESENT: alert, awake, oriented to person, oriented to place , oriented to time, oriented to situation, CN II-XII grossly intact. ABSENT: motor sensory deficit Psychiatric exam: PRESENT: appropriate affect, normal mood. ABSENT: homicidal ideation, suicidal ideation Skin exam: PRESENT: dry, intact, warm. ABSENT: cyanosis, rash Results Impressions: Chest X-Ray 12/20/16 22:44 IMPRESSION: NO ACUTE RADIOGRAPHIC FINDING IN THE CHEST. Assessment & Plan - Diagnosis (1) Acute exacerbation of chronic bronchitis Is this a current diagnosis for this admission?: YesPlan: Patient on nebulizers and steroids. Will add mucinex and mucomyst (2) Atrial flutter Qualifiers: Atrial flutter type: unspecified Qualified Code(s): I48.92 - Unspecified atrial flutter Is this a current diagnosis for this admission?: YesPlan: Rate controlled at the present time (3) Acute and chronic respiratory failure with hypoxia Is this a current diagnosis for this admission?: YesPlan: Now saturating well on 2l/min (4) Congestive heart failure Qualifiers: Congestive heart failure type: diastolic Is this a current diagnosis for this admission?: YesPlan: Patient appears euvolemic. She has no peripheral edema (5) Coronary artery disease Qualifiers: Coronary Disease-Associated Artery/Lesion type: [place] artery Associated angina: without angina Is this a current diagnosis for this admission?: YesPlan: Continue home medications (6) DVT prophylaxis Is this a current diagnosis for this admission?: YesPlan: Patient is on Eliquis (7) Diabetes Qualifiers: Diabetes mellitus type: type 2 Is this a current diagnosis for this admission?: YesPlan: Continue home medications and sliding scale coverage - Time Time Spent with patient: 25-34 minutes Critical Time spent with patient: 15-24 minutes Smoking Cessation Education: 3 to 10 minutes Medications reviewed and adjusted accordingly: Yes Anticipated discharge: Home with Homehealth Within: within 24 hours - Inpatient Certification Based on my medical assessment, after consideration of the patient's comorbidities, presenting symptoms, or acuity I expect that the services needed warrant INPATIENT care.: Yes
[2016-12-22] MEDS: INSULIN LISPRO 100 UNIT/ML 3 ML VIAL SUBCUT PRN ×2 (16:36→22:06)
[2016-12-22] MEDS: ACETAMINOPHEN 325 MG TABLET PO PRN (22:07)
[2016-12-22] MEDS: MONTELUKAST SODIUM 10 MG TABLET PO SCH (22:08)
[2016-12-23] MEDS: IPRATROPIUM BROMIDE 0.02% NEB 0.5 MG/2.5 ML AMPUL NEB SCH ×2 (02:18→08:29)
[2016-12-23] MEDS: LEVALBUTEROL HCL NEB 1.25 MG/3 ML AMPUL NEB SCH ×2 (02:19→08:30)
[2016-12-23] MEDS: GLIPIZIDE XL 2.5 MG TAB.ER.24 PO SCH (07:59)
[2016-12-23] MEDS: POTASSIUM CHLORIDE 10 MEQ TABLET.SA PO SCH (09:20)
[2016-12-23] MEDS: FOLIC ACID 1 MG TABLET PO SCH (09:21)
[2016-12-23] MEDS: FUROSEMIDE 40 MG TABLET PO SCH (09:22)
[2016-12-23] MEDS: FERROUS SULFATE 325 MG TABLET PO SCH (09:22)
[2016-12-23] MEDS: DIGOXIN 0.125 MG TABLET PO SCH (09:24)
[2016-12-23] MEDS: MULTIVITAMIN TABLET PO SCH (09:25)
[2016-12-23] MEDS: METOPROLOL SUCCINATE 50 MG TAB.SR.24H PO SCH (09:25)
[2016-12-23] MEDS: DILTIAZEM HCL 180 MG CAPSULE.CR PO SCH (09:25)
[2016-12-23] MEDS: DOXYCYCLINE HYCLATE 100 MG TABLET PO SCH (09:26)
[2016-12-23] MEDS: APIXABAN 5 MG TABLET PO SCH (09:26)
[2016-12-23] MEDS: PREDNISONE 20 MG TABLET PO SCH (09:26)
[2016-12-23] MEDS: DOCUSATE SODIUM 100 MG CAPSULE PO SCH (09:30)
[2016-12-23] MEDS: GUAIFENESIN 600 MG TABLET.SA PO SCH (09:33)
[2016-12-23 09:35] VITALS: BP 132/77
[2016-12-23] MEDS: BUDESONIDE/FORMOTEROL 160-4.5 MCG 60 PUFF/6 GM MDI IH SCH (09:40)
[2016-12-23] MEDS: FLUTICASONE NASAL SPRAY 50 MCG/SPRY 120 SPRAY/16 GM NASL SCH (09:40)
--- NOTE | 2016-12-23 11:22 | PDOC DISCHARGE SUMMARY ---
General - Admit/Disc Date/PCP Admission Date/Primary Care Provider: 12/22/16 09:35 CHANO CHERY MD Discharge Date: 12/23/16 - Discharge Diagnosis (1) Acute exacerbation of chronic bronchitis Is this a current diagnosis for this admission?: YesSummary: Patient improved back to baseline. She admits to being noncompliant with BIPAP and smoking. She will attempt to put BIPAP on prior to bed (2) Atrial flutter Is this a current diagnosis for this admission?: YesSummary: Controlled rate atrial fibrillation, cardiazem, metoprolol and eliquis (3) Acute and chronic respiratory failure with hypoxia Is this a current diagnosis for this admission?: YesSummary: Hypoxia resolved on home oxygen 3l/min 24/7, BIPAP at night and prn (4) Congestive heart failure Is this a current diagnosis for this admission?: YesSummary: Patient is euvolemic continue medications (5) Coronary artery disease Is this a current diagnosis for this admission?: YesSummary: Stable no chest pain (6) DVT prophylaxis Is this a current diagnosis for this admission?: Yes (7) Diabetes Is this a current diagnosis for this admission?: YesSummary: Currently well controlled on current treatment - Additional Information Resuscitation Status: Full Code Discharge Diet: Cardiac, Diabetic Discharge Activity: Activity As Tolerated, Balance Activity w/Rest Home Medications: Apixaban [Eliquis 5 mg Tablet] 5 mg PO Q12 11/28/16 Budesonide/Formoterol Fumarate [Symbicort HFA 160-4.5 mcg Inhaler 6 gm] 2 puff IH Q12 11/28/16 Furosemide [Lasix] 40 mg PO DAILY 11/28/16 Glipizide [Glipizide ER] 2.5 mg PO DAILY 11/28/16 Multivit-Min/FA/Herbal No.245 [Alive Women's Gummy Vitamins] 1 tab PO DAILY Potassium Chloride [K-Tab ER] 20 meq PO DAILY 11/28/16 Tiotropium [place] [Spiriva Respimat] 1 puff IH DAILY 11/28/16 Acetaminophen [Tylenol 325 mg Tablet] 650 mg PO Q8HP PRN tablet 12/06/16 Digoxin [Lanoxin 0.125 mg Tablet] 0.125 mg PO DAILY #30 tablet 12/06/16 Fluticasone Propionate [Flonase Nasal [place] 50 Mcg/[place] 16 gm] 2 spray NASL Q12 #1 spray.pump 12/06/16 Ipratropium/Albuterol Sulfate [Duoneb 3 ml Ampul] 3 ml NEB RTQ6HP PRN #90 vial.neb 12/06/16 Metoprolol Succinate [Toprol Xl 50 mg Tab.sr] 50 mg PO DAILY #30 tab.sr.24h Montelukast Sodium [Singulair 10 mg Tablet] 10 mg PO QHS #30 tablet 12/06/16 Albuterol Sulfate [Ventolin Hfa] 1 puff IH Q4HP PRN 12/21/16 Acetaminophen [Tylenol 325 mg Tablet] 650 mg PO Q4HP PRN tablet 12/23/16 Alprazolam [Xanax 0.5 mg Tablet] 0.5 mg PO BIDP PRN #30 tablet 12/23/16 Digoxin [Lanoxin 0.125 mg Tablet] 0.125 mg PO DAILY #30 tablet 12/23/16 Diltiazem HCl [Cardizem Cd 180 mg Capsule] 180 mg PO Q12 #60 capsule.cr Prednisone [Deltasone 20 mg Tablet] 20 mg PO BID #7 tablet 12/23/16 History of Present Illness Patient complains of: Shortness of breath and palpitations History of Present Illness: TERE VALERIO is a 56 year old female with a past medical history of end- stage COPD, sleep apnea on home oxygen and BiPAP dependent with chronic bronchitis, atrial fibrillation, moderate mitral regurgitation, coronary artery disease, hypertension, diabetes, osteoarthritis and ongoing tobacco dependence. She had been in her usual state of health until approximately 8 hours prior to presentation developing extreme shortness of breath with minimal exertion and a nonproductive cough. Denies chest pain nausea vomiting or diaphoresis. In the emergency room she is found to have uncontrolled A. fib in the 130s she is started on BiPAP, Cardizem and referred to the hospital for admission. Patient admits noncompliance with BiPAP and tobacco. She admits feeling significantly better over the last 3 hours. Hospital Course Hospital Course: Patient was admitted to the [facility] on IV diltiazem. This was converted to p.o. following morning her rate controlled she was atrial fibrillation flutter. Eliquis was restarted. She was started on IV antibiotics steroids and nebulizer treatments. She continued to have a mildly productive cough with thick yellow white sputum raised. Over the next 48 hours her creatinine improved. She now feels back to baseline. Social work saw the patient in consult and arranged home health physical therapy, respiratory therapy and nursing for post discharge. She was counseled at length regarding the need to be compliant with trilogy and not to smoke if she is to stay out of the hospital. She agrees to be more compliant with the plan Physical Exam Vital Signs: Temp Pulse Resp BP Pulse Ox 97.5 F 76 18 132/77 H 100 12/23/16 10:17 12/23/16 10:17 12/23/16 10:17 12/23/16 07:41 12/23/16 10:17 Intake & Output 12/22/16 12/23/16 12/24/16 06:59 06:59 06:59 Intake Total 1709 Output Total 1725 Balance -16 Weight 66 kg General appearance: PRESENT: no acute distress, thin, well-developed, well- nourished Head exam: PRESENT: atraumatic, normocephalic Eye exam: PRESENT: conjunctiva pink, EOMI, PERRLA. ABSENT: scleral icterus Ear exam: PRESENT: normal external ear exam Mouth exam: PRESENT: dry mucosa Neck exam: ABSENT: carotid bruit, JVD, lymphadenopathy, thyromegaly Respiratory exam: PRESENT: decreased breath sounds, symmetrical, unlabored Cardiovascular exam: PRESENT: irregular rhythm, +S1, +S2 - Patient Pulses: PRESENT: normal dorsalis pedis pul Vascular exam: PRESENT: normal capillary refill GI/Abdominal exam: PRESENT: normal bowel sounds, soft. ABSENT: distended, guarding, mass, organolmegaly, rebound, tenderness Rectal exam: PRESENT: deferred Extremities exam: PRESENT: full ROM. ABSENT: calf tenderness, clubbing, pedal edema Neurological exam: PRESENT: alert, awake, oriented to person, oriented to place , oriented to time, oriented to situation, CN II-XII grossly intact. ABSENT: motor sensory deficit Psychiatric exam: PRESENT: appropriate affect, normal mood. ABSENT: homicidal ideation, suicidal ideation Skin exam: PRESENT: dry, intact, warm. ABSENT: cyanosis, rash Results Impressions: Chest X-Ray 12/20/16 22:44 IMPRESSION: NO ACUTE RADIOGRAPHIC FINDING IN THE CHEST. Qualifiers PATEINT BEING DISCHARGED WITH ANY OF THE FOLLOWING DIAGNOSIS?: No Plan Discharge Plan: Home with home health Time Spent: Less than 30 Minutes
== END 2016-12-23 11:01 | disposition home health service (06) | DRG 190 ==
LOC: ER 22:36 → UNDOADMOB 12-21 06:06 → EH 12-21 06:06 → 3S 12-21 09:45 → OBSVTOIN 12-22 09:35
PROVIDERS: ADMIT Internal Medicine; ATTEND Internal Medicine
DX: J44.1 Chronic obstructive pulmonary disease with (acute) exacerbation (principal); J96.21 Acute and chronic respiratory failure with hypoxia; I50.32 Chronic diastolic (congestive) heart failure; I48.92 Unspecified atrial flutter; I11.0 Hypertensive heart disease with heart failure; E11.9 Type 2 diabetes mellitus without complications; I34.0 Nonrheumatic mitral (valve) insufficiency; G47.30 Sleep apnea, unspecified; F17.210 Nicotine dependence, cigarettes, uncomplicated; I25.2 Old myocardial infarction; Z91.19 Patient's noncompliance with other medical treatment and regimen; Z79.01 Long term (current) use of anticoagulants; Z99.81 Dependence on supplemental oxygen; Z79.84 Long term (current) use of oral hypoglycemic drugs; Z79.51 Long term (current) use of inhaled steroids; Z79.899 Other long term (current) drug therapy
CPT/HCPCS: 36415; 71010; 80048; 80053; 80162; 82550; 82553; 82803; 82962; 83735; 83880; 84100; 84443; 84484; 85025; 93005; 93010; 94640; 94660; 94667; 96365; 96366; 96375; 99285; G0378; J1815; J1940; J2930; J3475; J3490; J7512; J7620

== ENCOUNTER 2017-01-11 19:46 | Emergency (ER) | payer MEDICARE, MEDICAID ==
[2017-01-11] MEDS ORDERED: IPRATROPIUM/ALBUTEROL 0.5-2.5 MG/3 ML AMPUL NEB ONE (19:52)
[2017-01-11] MEDS ORDERED: METHYLPREDNISOLONE INJ 125 MG/2 ML SDV IV ONE (19:52)
--- NOTE | 2017-01-11 20:17 | ER Document Report ---
ED Respiratory Problem - General Information source: Patient TRAVEL OUTSIDE OF THE [place] IN LAST 30 DAYS: No - HPI Patient complains to provider of: Short of breath Cough: Productive Sputum color: Yellow Associated symptoms: Other - see above <JESENIA NIEVES - Last Filed: 01/11/17 20:35> <DANIELLE ACHARYA - Last Filed: 01/12/17 00:35> - General Chief Complaint: Shortness Of Breath Stated Complaint: DIFFICULTY BREATHING Time Seen by Provider: 01/11/17 20:02 Notes: Patient is a 56 year old female with a history of CHF, A-Fib and COPD presents to the ED with complaints of SOB x2 days and right rib pain that started today. Patient states she also has had a productive cough with yellow sputum. Patient states she has never had a DVT or a PE. Patient denies a known fever. Patient is currently on 2L of O2 at home, patient states she has her home O2 at 2.5 to compensate for the long cord. (JESENIA NIEVES) - Related Data Allergies/Adverse Reactions: erythromycin base [Erythromycin Base] Allergy (Mild, Verified 06/10/16 21:58) Past Medical History - General Information source: Patient - Social History Smoking Status: Former Smoker Chew tobacco use (# tins/day): No Frequency of alcohol use: None Drug Abuse: Marijuana Family History: Reviewed & Not Pertinent, CAD, COPD, Hypertension - Past Medical History Cardiac Medical History: Reports: Hx Atrial Fibrillation, Hx Congestive Heart Failure, Hx Heart Attack, Hx Hypertension Pulmonary Medical History: Reports: Hx COPD, Hx Pneumonia Endocrine Medical History: Reports: 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 Renal/ Medical History: Denies: Hx Peritoneal Dialysis Musculoskeltal Medical History: Reports Hx Arthritis Past Surgical History: Reports: Hx Cardiac Catheterization, Hx Section - Immunizations Immunizations up to date: Yes Hx Diphtheria, Pertussis, Tetanus Vaccination: Yes Hx Pneumococcal Vaccination: 05/18/12 <JESENIA NIEVES - Last Filed: 01/11/17 20:35> Review of Systems - Review of Systems Constitutional: No symptoms reported. denies: Fever EENT: No symptoms reported Cardiovascular: No symptoms reported, See HPI Respiratory: See HPI, Cough, Short of breath Gastrointestinal: No symptoms reported Genitourinary: No symptoms reported Female Genitourinary: No symptoms reported Musculoskeletal: See HPI, Other - right rib pain Skin: No symptoms reported Hematologic/Lymphatic: No symptoms reported Neurological/Psychological: No symptoms reported <JESENIA NIEVES - Last Filed: 01/11/17 20:35> Physical Exam <JESENIA NIEVES - Last Filed: 01/11/17 20:35> <DANIELLE ACHARYA - Last Filed: 01/12/17 00:35> - Vital signs Vitals: Pulse Ox 100 01/11/17 19:52 - Notes Notes: GENERAL: Alert, interacts well. No acute distress. Appears short of breath and uncomfortable. HEAD: Normocephalic, atraumatic. EYES: Pupils equal, round, and reactive to light. Extraocular movements intact. ENT: Oral mucosa moist, tongue midline. NECK: Full range of motion. Supple. Trachea midline. LUNGS: Slightly decreased air movement in right lower lobe, no wheezes, rales, or rhonchi. No respiratory distress. HEART: Tachycardic. No murmurs, gallops, or rubs. ABDOMEN: Epigastric tenderness to palpation. Non-distended. Bowel sounds present in all 4 quadrants. EXTREMITIES: Moves all 4 extremities spontaneously. No edema, dorsalis pedis pulses 2/4 bilaterally. No cyanosis. NEUROLOGICAL: Alert and oriented x3. Normal speech. PSYCH: Normal affect, normal mood. SKIN: Warm, dry, normal turgor. No rashes or lesions noted. (JESENIA NIEVES) Course - Laboratory Result Diagrams: 01/11/17 20:20 01/11/17 20:20 <JESENIA NIEVES - Last Filed: 01/11/17 20:35> - Laboratory Result Diagrams: 01/11/17 20:20 01/11/17 20:20 <DANIELLE ACHARYA - Last Filed: 01/12/17 00:35> - Re-evaluation Re-evalutation: 01/11/17 23:48 CBC does not show any leukocytosis, there is mild anemia with hemoglobin 11.7, CMP grossly unremarkable, cardiac enzymes negative, proBNP 321 which is not significant, lipase normal, chest x-ray is chronic appearing changes, CTA of the chest shows possible tiny pericardial effusion as well as minimal airspace consolidation in the right lung base consistent with atelectatic changes. No pulmonary embolism. (DANIELLE ACHARYA) - Vital Signs Vital signs: Temp Pulse Resp BP Pulse Ox 98.4 F 26 H 114/61 99 01/11/17 20:00 01/11/17 21:01 01/11/17 21:01 01/11/17 21:01 - Laboratory Laboratory results interpreted by me: 01/11/17 01/11/17 20:20 20:20 Hgb 11.7 L MCH 26.0 L MCHC 31.5 L RDW 20.0 H Seg Neutrophils % 78.9 H Lymphocytes % 11.9 L Sodium 145.4 H Carbon Dioxide 33 H Est GFR (Non-Af Amer) 58 L Glucose 131 H - EKG Interpretation by Me Additional EKG results interpreted by me: 01/11/17 23:48 EKG shows atrial flutter at a rate of 102, normal axis, normal intervals, no ST segment elevations or depressions, no T-wave inversions per my interpretation. ( DANIELLE ACHARYA) Discharge <JESENIA NIEVES - Last Filed: 01/11/17 20:35> <DANIELLE ACHARYA - Last Filed: 01/12/17 00:35> - Discharge Clinical Impression: Atelectasis of right lung, Right-sided chest pain, Acute exacerbation of chronic bronchitis Condition: Stable Disposition: HOME, SELF-CARE Additional Instructions: Please use the incentive spirometer at least 4 times a day. Take the steroids as directed until they are gone. If in 2-3 days you are not feeling better go ahead and start the azithromycin. If you develop a fever return to the emergency department. Please return for any new or worsening symptoms. Prescriptions: Azithromycin 250 mg PO ASDIR #6 tablet Prednisone [Deltasone 20 mg Tablet] 3 tab PO DAILY 5 Days Scribe Attestation: 01/12/17 00:35 I personally performed the services described in the documentation, reviewed and edited the documentation which was dictated to the scribe in my presence, and it accurately records my words and actions. (DANIELLE ACHARYA) Scribe Documentation - Scribe Written by Scribe:: alfredo Rodriguez, 01/11/2017, 2028 acting as scribe for :: Renuka <JESENIA NIEVES - Last Filed: 01/11/17 20:35>
[2017-01-11] MEDS ORDERED: HYDROCODONE/ACETAMINOPHEN 5-325 MG TABLET PO ONE (20:18)
[2017-01-11] MEDS: ALBUTEROL SULFATE 0.083% NEB 2.5 MG/3 ML AMPUL NEB SCH ×2 (20:32→20:45)
[2017-01-11 20:35] LABS: ABSOLUTE BASOPHILS # (AUTO) 0.1 10^3/uL (0.0-0.2); ABSOLUTE LYMPHOCYTES (AUTO) 1.2 10^3/uL (0.5-4.7); ABSOLUTE MONOCYTES (AUTO) 0.8 10^3/uL (0.1-1.4); ABSOLUTE NEUT (AUTO) 7.8 10^3/uL (1.7-8.2); BASOPHILS % (AUTO) 0.6 % (0-2); EOSINOPHILS % (AUTO) 0.5 % (0-6); HEMATOCRIT 37.3 % (36.0-47.0); HEMOGLOBIN 11.7 g/dL (12.0-15.5); HGB HCT DIFFERENCE -2.2; LYMPHOCYTES % (AUTO) 11.9 % (13-45); MEAN CORPUSCULAR HGB CONC 31.5 g/dL (32.0-36.0); MEAN CORPUSCULAR VOLUME 82 fl (80-97); MONOCYTES % (AUTO) 8.1 % (3-13); RED BLOOD COUNT 4.52 10^6/uL (3.72-5.28); SEGMENTED NEUTROPHILS % (AUTO) 78.9 % (42-78); WHITE BLOOD COUNT 9.8 10^3/uL (4.0-10.5)
[2017-01-11 20:58] LABS: ALANINE AMINOTRANSFERASE 37 U/L (9-52); ALBUMIN 3.6 g/dL (3.5-5.0); ALKALINE PHOSPHATASE 77 U/L (38-126); ANION GAP 8 (5-19); ASPARTATE AMINO TRANSFERASE 18 U/L (14-36); BILIRUBIN,DIRECT 0.3 mg/dL (0.0-0.4); BILIRUBIN,TOTAL 0.8 mg/dL (0.2-1.3); BLOOD UREA NITROGEN 19 mg/dL (7-20); CALCIUM 9.1 mg/dL (8.4-10.2); CARBON DIOXIDE 33 mmol/L (22-30); CHLORIDE 104 mmol/L (98-107); CREATINE KINASE 51 U/L (30-135); CREATININE RESULT 0.98 mg/dL (0.52-1.25); GLUCOSE 131 mg/dL (75-110); LIPASE 44.1 U/L (23-300); POTASSIUM 4.1 mmol/L (3.6-5.0); SODIUM 145.4 mmol/L (137-145); TOTAL PROTEIN 6.4 g/dL (6.3-8.2)
[2017-01-11 21:18] LABS: CREATINE KINASE MB 0.78 ng/mL (<4.55)
[2017-01-11 21:19] LABS: TROPONIN I < 0.012 ng/mL
--- NOTE | 2017-01-11 21:37 | RADIOLOGY REPORT (SQ) ---
EXAM DESCRIPTION: CHEST PA/LAT COMPLETED DATE/TIME: 01/11/2017 9:21 pm REASON FOR STUDY: cough, RUQ pain COMPARISON: 12/01/2016 EXAM PARAMETERS: NUMBER OF VIEWS: two views TECHNIQUE: Digital Frontal and Lateral radiographic views of the chest acquired. RADIATION DOSE: NA LIMITATIONS: none FINDINGS: LUNGS AND PLEURA: No opacities, masses or pneumothorax. No pleural effusion. The previous ly described chronic appearing changes appears stable. MEDIASTINUM AND HILAR STRUCTURES: No masses or contour abnormalities. HEART AND VASCULAR STRUCTURES: The configuration of the heart and mediastinal structures is unchanged . BONES: No acute findings. HARDWARE: None in the chest. OTHER: No other significant finding. IMPRESSION: No significant interval change. No acute findings. Other findings as noted above TECHNICAL DOCUMENTATION: JOB ID: [id number]- All Rights Reserved
--- NOTE | 2017-01-11 23:00 | RADIOLOGY REPORT (SQ) ---
EXAM DESCRIPTION: CTA CHEST COMPLETED DATE/TIME: 01/11/2017 10:46 pm REASON FOR STUDY: hypoxia, chest pain, EVAL pe COMPARISON: Chest x-ray dated 01/11/2017 TECHNIQUE: CT scan of the chest performed using helical scanning technique with dynamic intravenous contrast injection. Images reviewed with lung, soft tissue and bone windows. Reconstructed coronal and sagittal MPR images reviewed. Additional 3 dimensional post-processing performed to develop Maximal Intensity Projection images (MN P). All images stored on PACS. All CT scanners at this facility use dose modulation, iterative reconstruction, and/or weight based d osing when appropriate to reduce radiation dose to as low as reasonably achievable (ALARA). [facility]: Dose Right [facility]: CareDose [facility]: Dose Right [facility]: Teradose 4D [facility]: Pickie CONTRAST TYPE AND DOSE: contrast/concentration: Isovue 370.00 mg/ml; Total Contrast Delivered: 100.0 ml; Total Saline Delivered: 60.0 ml RENAL FUNCTION: Creatinine 0.8 RADIATION DOSE: Up-to-date CT equipment and radiation dose reduction techniques were employed. CTDIv ol: 9.4 - 11.1 mGy. DLP: 433 mGy-cm. . LIMITATIONS: None. FINDINGS: LUNGS AND PLEURA: No masses, infiltrates, pneumothorax. No pleural effusions, calcificati ons. Extensive chronic appearing changes are identified. There is some minimal airspace consolidati on in the right lung base most consistent with atelectatic changes. AORTA AND GREAT VESSELS: No aneurysm or dissection. HEART: There is some mild thickening of the pericardial stripe suggesting a tiny pericardial effusion . PULMONARY ARTERIES: No emboli visualized in the main pulmonary arteries or the segmental branches. HILAR AND MEDIASTINAL STRUCTURES: No identified masses or abnormal nodes. HARDWARE: None in the chest. UPPER ABDOMEN: No significant findings. Limited exam. THYROID AND OTHER SOFT TISSUES: No masses. No adenopathy. BONES: No acute or significant finding. 3D MIPS: Confirm above findings. OTHER: No other significant finding. IMPRESSION: No evidence for pulmonary embolic disease. Extensive chronic appearing changes are iden tified. There is some minimal airspace consolidation in the right lung base most consistent with ate lectatic changes. Other findings as noted above TECHNICAL DOCUMENTATION: JOB ID: [id number] Quality ID # [id number]: Final reports with documentation of one or more dose reduction techniques (e.g., Au tomated exposure control, adjustment of the mA and/or kV according to patient size, use of iterative reconstruction technique) 2010 [employer]- All Rights Reserved
[2017-01-12 00:59] VITALS: BP 128/71
--- NOTE | 2017-01-12 12:14 | EKG REPORT ---
SEVERITY:- ABNORMAL ECG - ATRIAL FLUTTER, A-RATE 263 RIGHT AXIS DEVIATION NONSPECIFIC REPOL ABNORMALITY, INFERIOR LEADS : Confirmed by: Janine Aviles MD 12-Jan-2017 12:13:26
== END 2017-01-12 00:57 | disposition home or self-care (01) ==
LOC: ER 19:46
DX: J44.1 Chronic obstructive pulmonary disease with (acute) exacerbation (principal); J98.11 Atelectasis; R07.9 Chest pain, unspecified; I48.91 Unspecified atrial fibrillation; I50.9 Heart failure, unspecified; Z99.81 Dependence on supplemental oxygen; Z87.891 Personal history of nicotine dependence
CPT/HCPCS: 93005; 94640 ×2; 99285; 96374; 36415; 87040; 82553; 82550; 83690; 85025; 87077; 80053; 84484; 87186; 83880; 71020; 71275; 93010; J2930; A9270 ×3; J7620

== ENCOUNTER 2017-04-29 15:10 | Emergency (ER) | payer MEDICARE, MEDICAID ==
--- NOTE | 2017-04-29 15:46 | ER Document Report ---
HPI - HPI Patient complains to provider of: itchy rash since yesterady Onset: Yesterday Onset/Duration: Sudden Quality of pain: Other - itchy Pain Level: 4 Context: 56 yo ex smoker female c/o itchy rash all day since yeaterday, cat in house they live in and has seen fleas hopping around. Landlord won't do anything about it. Hx A fib, copd, apical pulse is 124, CHF, oxygen dependant, at bedside. Marina was seen by the scout executive and he suspected her ithcing , rash is papules from flea bites (GD had been tx for scabies in the past). No chest pain or change in usual shortness of breath. Associated Symptoms: None. denies: Chest pain, Shortness of breath Exacerbated by: Denies Relieved by: Denies - ROS ROS below otherwise negative: Yes Systems Reviewed and Negative: Yes All other systems reviewed and negative - REPRODUCTIVE Reproductive: DENIES: : - DERM Skin Color: Normal Past Medical History - General Information source: Patient - Social History Smoking Status: Former Smoker Frequency of alcohol use: None Drug Abuse: None Lives with: Family Family History: Reviewed & Not Pertinent, CAD, COPD, Hypertension Patient has suicidal ideation: No Patient has homicidal ideation: No - Past Medical History Cardiac Medical History: Reports: Hx Atrial Fibrillation, Hx Congestive Heart Failure, Hx Heart Attack, Hx Hypertension Pulmonary Medical History: Reports: Hx COPD, Hx Pneumonia Endocrine Medical History: Reports: 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 Renal/ Medical History: Denies: Hx Peritoneal Dialysis Musculoskeltal Medical History: Reports Hx Arthritis Past Surgical History: Reports: Hx Cardiac Catheterization, Hx Section - Immunizations Immunizations up to date: Yes Hx Diphtheria, Pertussis, Tetanus Vaccination: Yes Hx Pneumococcal Vaccination: 05/18/12 Vertical Provider Document - CONSTITUTIONAL Agree With Documented VS: Yes Exam Limitations: No Limitations - INFECTION CONTROL TRAVEL OUTSIDE OF THE [place] IN LAST 30 DAYS: No - HEENT HEENT: Normal ENT Exam - NECK Neck: Supple - RESPIRATORY Respiratory: Breath Sounds Normal, No Respiratory Distress O2 Sat by Pulse Oximetry: 91 Notes: wars oxygen-using wall oxygen at this time. - CARDIOVASCULAR Cardiovascular: Tachycardia - atrial tachycardia, a flutter - GI/ABDOMEN Gastrointestinal: Abdomen Soft, Abdomen Non-Tender - MUSCULOSKELETAL/EXTREMETIES Musculoskeletal/Extremeties: MAEWSAMANTHA - NEURO Level of Consciousness: Awake, Alert - DERM Integumentary: Rash - red papular foreamr, right waist rash Course - Re-evaluation Re-evalutation: 04/29/17 19:[address] sanz for this case, rec the labwork, Metoprolol 50mg, and digoxin 0.125 since the level is low, restart regular dose in am. Pt did NOT take her metoprolol SR 50mg or her Digonxin this am. Ekg original A flutter with rate 124 -130, repeat EKG at this time is A flutter rate 99-108. [address]. Mcdaniel- [facility] on [address] Dr sanz is OK with her discharge. 04/29/17 19:31 - Vital Signs Vital signs: Temp Pulse Resp BP Pulse Ox 97.8 F 137 H 20 136/82 H 91 L 04/29/17 15:15 04/29/17 15:15 04/29/17 15:15 04/29/17 15:15 04/29/17 15:15 - Laboratory Result Diagrams: 04/29/17 17:29 - EKG Interpretation by Me Rate: Tachycardia Rhythm: A.Flutter When compared to previous EKG there are: No significant change Additional EKG results interpreted by me: 04/30/17 06:[address] sanz about tx, pt had not taken metoprolol of digoxin today Discharge - Discharge Clinical Impression: Itching Flea bite Qualifiers: Encounter type: initial encounter Qualified Code(s): W57.XXXA - Bitten or stung by nonvenomous insect and other nonvenomous arthropods, initial encounter Atrial flutter Qualifiers: Atrial flutter type: typical Qualified Code(s): I48.3 - Typical atrial flutter Condition: Good Disposition: HOME, SELF-CARE Instructions: Atrial Fibrillation ([facility]), Use of Diphenhydramine, Insect Bites ( [facility]) Additional Instructions: get treatment for the house (flea) and cat benadryl for itch, get over the counter 25-50mg every 4-6 hours for the itch oatmeal bath see the scout executive for follow up talk with the landlord. take you medications DAILY so your heartrate won't go high see your assistant broker on sunday as planned. Referrals: BELEN YOU, DO [ACTIVE STAFF] - Follow up as needed
[2017-04-29] MEDS ORDERED: METOPROLOL TARTRATE 50 MG TABLET PO ONE (16:46)
[2017-04-29] MEDS ORDERED: NORMAL SALINE 1000 ML 1,000 ML IV ONE (16:46)
[2017-04-29 18:00] LABS: ALANINE AMINOTRANSFERASE 36 U/L (9-52); ALBUMIN 3.9 g/dL (3.5-5.0); ALKALINE PHOSPHATASE 83 U/L (38-126); ANION GAP 10 (5-19); ASPARTATE AMINO TRANSFERASE 24 U/L (14-36); BILIRUBIN,DIRECT 0.3 mg/dL (0.0-0.4); BILIRUBIN,TOTAL 0.5 mg/dL (0.2-1.3); BLOOD UREA NITROGEN 17 mg/dL (7-20); CALCIUM 9.5 mg/dL (8.4-10.2); CARBON DIOXIDE 33 mmol/L (22-30); CHLORIDE 107 mmol/L (98-107); CREATINE KINASE 140 U/L (30-135); CREATININE RESULT 0.79 mg/dL (0.52-1.25); DIGOXIN 0.56 ng/mL (0.8-2.0); GLUCOSE 96 mg/dL (75-110); POTASSIUM 4.5 mmol/L (3.6-5.0); SODIUM 149.7 mmol/L (137-145); TOTAL PROTEIN 6.6 g/dL (6.3-8.2)
[2017-04-29 18:08] LABS: CREATINE KINASE MB 1.5 ng/mL (<4.55); TROPONIN I 0.016 ng/mL
[2017-04-29] MEDS ORDERED: DIGOXIN 0.125 MG TABLET PO ONE (18:48)
[2017-04-29] MEDS ORDERED: DIPHENHYDRAMINE HCL 50 MG CAPSULE PO ONE (19:25)
[2017-04-29 19:28] VITALS: BP 131/97
--- NOTE | 2017-04-29 20:11 | EKG REPORT ---
SEVERITY:- ABNORMAL ECG - ATRIAL FLUTTER. NONSPECIFIC T ABNORMALITIES, INFERIOR LEADS PROLONGED QT INTERVAL : Confirmed by: Ian Gutierrez MD 29-Apr-2017 20:11:28
--- NOTE | 2017-04-29 20:13 | EKG REPORT ---
SEVERITY:- ABNORMAL ECG - ATRIAL FLUTTER BORDERLINE RIGHT AXIS DEVIATION : Confirmed by: Ian Gutierrez MD 29-Apr-2017 20:12:25
== END 2017-04-29 19:49 | disposition home or self-care (01) ==
LOC: ER 15:10
DX: L29.9 Pruritus, unspecified (principal); W57.XXXA Bitten or stung by nonvenomous insect and other nonvenomous arthropods, initial encounter; I48.3 Typical atrial flutter; I48.91 Unspecified atrial fibrillation; I10 Essential (primary) hypertension; J44.9 Chronic obstructive pulmonary disease, unspecified; Z99.81 Dependence on supplemental oxygen; I25.2 Old myocardial infarction
CPT/HCPCS: 93005; 99283; 96360; 36415; 82553; 82550; 80162; 80053; 84484; 93010; A9270 ×3; J7030

== ENCOUNTER 2017-05-12 10:14 | Inpatient (IN) | payer MEDICARE, MEDICAID ==
[2017-05-12] MEDS ORDERED: NORMAL SALINE 1000 ML 1,000 ML IV ONE (10:22)
[2017-05-12] MEDS ORDERED: DILTIAZEM HCL INJ 25 MG/5 ML VIAL IV ONE ×2 (10:23→12:38)
[2017-05-12] MEDS ORDERED: DILTIAZEM HCL/D5W 125 MG/125 ML RTUINJ IV PRN ×2 (10:23→17:11)
--- NOTE | 2017-05-12 10:32 | ER Document Report ---
ED Respiratory Problem - General Chief Complaint: Shortness Of Breath Stated Complaint: CHEST PAIN Time Seen by Provider: 05/12/17 10:21 Notes: The patient is a 56-year-old female, past medical history COPD, CAD, A. fib (on Eliquis and diltiazem), presents with shortness of breath and dull anterior chest pain earlier today. EMS gave her 324 mg aspirin and 3 sublingual nitros with resolution of her chest pain. Patient also had a fever of 100.5 earlier today. She denies leg swelling, hemoptysis, nausea, vomiting, back pain, headache, neck stiffness, rash or recent travel. TRAVEL OUTSIDE OF THE [place] IN LAST 30 DAYS: No - Related Data Allergies/Adverse Reactions: erythromycin base [Erythromycin Base] Allergy (Mild, Verified 04/29/17 15:15) Past Medical History - General Information source: Patient - Social History Smoking Status: Current Every Day Smoker Family History: Reviewed & Not Pertinent, CAD, COPD, Hypertension - Past Medical History Cardiac Medical History: Reports: Hx Atrial Fibrillation, Hx Congestive Heart Failure, Hx Heart Attack, Hx Hypertension Pulmonary Medical History: Reports: Hx COPD, Hx Pneumonia Endocrine Medical History: Reports: 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 Renal/ Medical History: Denies: Hx Peritoneal Dialysis Musculoskeltal Medical History: Reports Hx Arthritis Past Surgical History: Reports: Hx Cardiac Catheterization, Hx Section - Immunizations Immunizations up to date: Yes Hx Diphtheria, Pertussis, Tetanus Vaccination: Yes Hx Pneumococcal Vaccination: 05/18/12 Review of Systems - Review of Systems Notes: REVIEW OF SYSTEMS: CONSTITUTIONAL: +fevers, -chills EENT: -eye pain, -difficulty swallowing, -nasal congestion CARDIOVASCULAR: +chest pain, -syncope. RESPIRATORY: +cough, +SOB GASTROINTESTINAL: -abdominal pain, - nausea, -vomiting, -diarrhea GENITOURINARY: -dysuria, -hematuria MUSCULOSKELETAL: -back pain, -neck pain SKIN: -rash or skin lesions. HEMATOLOGIC: -easy bruising or bleeding. LYMPHATIC: -swollen, enlarged glands. NEUROLOGICAL: -altered mental status or loss of consciousness, -headache, - neurologic symptoms PSYCHIATRIC: -anxiety, -depression. ALL OTHER SYSTEMS REVIEWED AND NEGATIVE. Physical Exam - Vital signs Vitals: Pulse 128 H 05/12/17 10:25 - Notes Notes: PHYSICAL EXAMINATION: GENERAL: Well-appearing, well-nourished and in no acute distress. HEAD: Atraumatic, normocephalic. EYES: Pupils equal round and reactive to light, extraocular movements intact, sclera anicteric, conjunctiva are normal. ENT: nares patent, oropharynx clear without exudates. Moist mucous membranes. NECK: Normal range of motion, supple without lymphadenopathy LUNGS: No respiratory distress. Mild end-expiratory wheezing. HEART: Tachycardic, irregularly irregular rhythm. ABDOMEN: Soft, nontender, normoactive bowel sounds. No guarding, no rebound. No masses appreciated. EXTREMITIES: Normal range of motion, no pitting or edema. No cyanosis. NEUROLOGICAL: Cranial nerves grossly intact. Normal speech, normal gait. Normal sensory and motor exams. PSYCH: Normal mood, normal affect. SKIN: Warm, Dry, normal turgor, no rashes or lesions noted. Course - Re-evaluation Re-evalutation: Patient presents in [facility] with RVR. She is taking her Eliquis as instructed and says that she has not missed any diltiazem doses. Her chest x-ray does not show any acute abnormalities and first troponin negative. Her blood pressure is remaining normal. 20 mg diltiazem helped rate control down to the 90s and diltiazem drip started, but patient went back up into the 120s-130s. Additional dose of diltiazem was provided and the diltiazem drip was increased to 15 mg/h. Her HR remains in 90's-100's. Patient's primary care is Dr. Pascual. 05/12/17 13:[address] Perez and he has accepted patient as Inpatient to [facility]. - Vital Signs Vital signs: Temp Pulse Resp BP Pulse Ox 128 H 21 H 112/58 L 98 05/12/17 10:25 05/12/17 11:01 05/12/17 11:01 05/12/17 11:01 - Laboratory Result Diagrams: 05/12/17 10:30 05/12/17 10:30 Laboratory results interpreted by me: 05/12/17 05/12/17 05/12/17 10:30 10:30 12:36 WBC 12.3 H Hgb 11.2 L Hct 34.8 L MCV 79 L MCH 25.4 L RDW 17.0 H Absolute Neutrophils 9.2 H Sodium 146.7 H Glucose 165 H Total Protein 6.2 L Urine Protein 100 H Urine Blood MODERATE H - Diagnostic Test Radiology reviewed: Image reviewed, Reports reviewed Radiology results interpreted by me: CXR: COPD, NAD - EKG Interpretation by Me Rate: Tachycardia Rhythm: A.Fib When compared to previous EKG there are: No significant change Critical Care Note - Critical Care Note Total time excluding time spent on procedures (mins): 35 Discharge - Discharge Clinical Impression: Atrial fibrillation with RVR, Shortness of breath Chest pain Qualifiers: Chest pain type: unspecified Qualified Code(s): R07.9 - Chest pain, unspecified Condition: Stable Disposition: ADMITTED INPATIENT Admitting Provider: Hospitalist - [facility] Admitted: [facility]
[2017-05-12 10:45] LABS: ABSOLUTE LYMPHOCYTES (AUTO) 1.7 10^3/uL (0.5-4.7); ABSOLUTE MONOCYTES (AUTO) 1.4 10^3/uL (0.1-1.4); ABSOLUTE NEUT (AUTO) 9.2 10^3/uL (1.7-8.2); BASOPHILS % (AUTO) 0.3 % (0-2); EOSINOPHILS % (AUTO) 0.2 % (0-6); HEMATOCRIT 34.8 % (36.0-47.0); HEMOGLOBIN 11.2 g/dL (12.0-15.5); HGB HCT DIFFERENCE -1.2; LYMPHOCYTES % (AUTO) 13.4 % (13-45); MEAN CORPUSCULAR HEMOGLOBIN 25.4 pg (27.0-33.4); MEAN CORPUSCULAR HGB CONC 32.2 g/dL (32.0-36.0); MEAN CORPUSCULAR VOLUME 79 fl (80-97); MONOCYTES % (AUTO) 11.3 % (3-13); SEGMENTED NEUTROPHILS % (AUTO) 74.8 % (42-78); WHITE BLOOD COUNT 12.3 10^3/uL (4.0-10.5)
[2017-05-12 11:08] LABS: ALANINE AMINOTRANSFERASE 29 U/L (9-52); ALBUMIN 3.5 g/dL (3.5-5.0); ALKALINE PHOSPHATASE 88 U/L (38-126); ANION GAP 12 (5-19); ASPARTATE AMINO TRANSFERASE 18 U/L (14-36); BILIRUBIN,DIRECT 0.4 mg/dL (0.0-0.4); BILIRUBIN,TOTAL 1.1 mg/dL (0.2-1.3); BLOOD UREA NITROGEN 11 mg/dL (7-20); CALCIUM 8.8 mg/dL (8.4-10.2); CARBON DIOXIDE 29 mmol/L (22-30); CHLORIDE 106 mmol/L (98-107); CREATINE KINASE 77 U/L (30-135); CREATININE RESULT 0.73 mg/dL (0.52-1.25); GLUCOSE 165 mg/dL (75-110); POTASSIUM 3.9 mmol/L (3.6-5.0); SODIUM 146.7 mmol/L (137-145); TOTAL PROTEIN 6.2 g/dL (6.3-8.2)
--- NOTE | 2017-05-12 11:37 | RADIOLOGY REPORT (SQ) ---
EXAM DESCRIPTION: CHEST SINGLE VIEW COMPLETED DATE/TIME: 05/12/2017 11:21 am REASON FOR STUDY: chest pain COMPARISON: 01/11/2017. NUMBER OF VIEWS: One view. TECHNIQUE: Single frontal radiographic view of the chest acquired. LIMITATIONS: None. FINDINGS: LUNGS AND PLEURA: No opacities, masses or pneumothorax. No pleural effusion. Attenuated bl ood vessels and flattened julianne-diaphragms. MEDIASTINUM AND HILAR STRUCTURES: No masses. Contour normal. HEART AND VASCULAR STRUCTURES: Heart normal in size. Normal vasculature. BONES: No acute findings. HARDWARE: None in the chest. OTHER: No other significant finding. IMPRESSION: COPD. NO ACUTE RADIOGRAPHIC FINDING IN THE CHEST. TECHNICAL DOCUMENTATION: JOB ID: [id number]- All Rights Reserved
[2017-05-12 11:40] LABS: VENOUS BLOOD BASE EXCESS 0.5 mmol/L; VENOUS BLOOD PCO2 55.4 mmHg (35-63); VENOUS BLOOD PH 7.32 (7.30-7.42)
[2017-05-12 13:04] LABS: APPEARANCE,URINE SLIGHTLY-CLOUDY; BILIRUBIN,URINE NEGATIVE (NEGATIVE); GLUCOSE, URINE NEGATIVE (NEGATIVE); KETONES,URINE NEGATIVE (NEGATIVE); LEUKOCYTE ESTERASE,URINE NEGATIVE (NEGATIVE); NITRITE,URINE NEGATIVE (NEGATIVE); PROTEIN,URINE 100 mg/dL (NEGATIVE); URINE SPECIFIC GRAVITY 1.021; UROBILINOGEN,URINE NEGATIVE mg/dL (<2.0)
[2017-05-12 13:15] LABS: URINE BARBITURATES SCREEN NEGATIVE; URINE METHADONE SCREEN NEGATIVE; URINE OPIATES LOW NEGATIVE; URINE PHENCYCLIDINE SCREEN NEGATIVE
[2017-05-12] MEDS ORDERED: ACETAMINOPHEN 325 MG TABLET PO PRN (13:53)
[2017-05-12] MEDS ORDERED: ONDANSETRON HCL INJ/PF 4 MG/2 ML SDV IV PRN (13:53)
[2017-05-12 14:01] LABS: FREE T3 3.31 pg/mL (2.77-5.27)
--- NOTE | 2017-05-12 14:06 | EKG REPORT ---
SEVERITY:- ABNORMAL ECG - SINUS TACHYCARDIA VENTRICULAR PREMATURE COMPLEX RIGHT AXIS DEVIATION NONSPECIFIC T ABNORMALITIES, INFERIOR LEADS : Confirmed by: Janine Aviles MD 12-May-2017 14:05:42
--- NOTE | 2017-05-12 14:07 | EKG REPORT ---
SEVERITY:- ABNORMAL ECG - ATRIAL FLUTTER WITH 2:1 AV BLOCK VENTRICULAR PREMATURE COMPLEX RIGHT AXIS DEVIATION CONSIDER LEFT VENTRICULAR HYPERTROPHY REPOLARIZATION ABNORMALITY, PROB RATE RELATED : Confirmed by: Janine Aviles MD 12-May-2017 14:06:18
[2017-05-12 14:14] LABS: THYROID STIMULATING HORMONE 1.08 uIU/mL (0.47-4.68)
[2017-05-12] MEDS ORDERED: FUROSEMIDE 40 MG TABLET PO ONE (14:30)
[2017-05-12] MEDS ORDERED: METOPROLOL SUCCINATE 50 MG TAB.SR.24H PO ONE (14:30)
[2017-05-12] MEDS ORDERED: DIGOXIN 0.125 MG TABLET PO ONE (14:30)
[2017-05-12] MEDS ORDERED: APIXABAN 5 MG TABLET PO ONE (14:30)
[2017-05-12] MEDS ORDERED: FOLIC ACID 1 MG TABLET PO ONE (14:30)
[2017-05-12] MEDS ORDERED: SERTRALINE HCL 50 MG TABLET PO ONE (14:30)
[2017-05-12] MEDS ORDERED: FERROUS SULFATE 325 MG TABLET PO ONE (15:00)
--- NOTE | 2017-05-12 15:25 | PDOC CONSULTATION ---
Consultation Consult Date: 05/12/17 Attending physician:: JULIAN FERRER Consult reason:: Atrial fibrillation History of Present Illness Admission Date/PCP: 05/12/17 13:38 Patient complains of: Shortness of breath History of Present Illness: The patient is a 56-year-old female, past medical history COPD, CAD, A. fib (on Eliquis and diltiazem), presents with shortness of breath and dull anterior chest pain earlier today. EMS gave her 324 mg aspirin and 3 sublingual nitros with resolution of her chest pain. Patient also had a fever of 100.5 earlier today. She denies leg swelling, hemoptysis, nausea, vomiting, back pain, headache, neck stiffness, rash or recent travel. Patient has noted some cough with some sputum production. Patient has known history of COPD and is on home oxygen therapy. She was recently seen by my physician traffic assistant in the office. Details of that visit are not available. Patient has a history of tobacco and alcohol abuse but claims that she quit those about a year ago. Patient does not have any relatives but her room mate at the place she is status will be the surrogate decision maker. Patient also describes history of sleep apnea syndrome and claims to be compliant with CPAP therapy. She claims that she follows up with my physician traffic assistant for this problem. She recently tried to see her advertising analyst Dr. Damon but apparently was late in seeing her. 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 Musculoskeltal Medical History: Reports: Arthritis Hematology: Reports: Anemia Past Surgical History Past Surgical History: Reports: Cardiac Catheterization, Section Social History Information Source: Patient Smoking Status: Former Smoker Frequency of Alcohol Use: None Hx Recreational Drug Use: No Drugs: None Hx Prescription Drug Abuse: No - Advance Directive Resuscitation Status: Full Code Surrogate healthcare decision maker:: Patient's roommate at the place she is stays in [facility] is the surrogate decision-maker Family History Family History: Reviewed & Not Pertinent, CAD, COPD, Hypertension Parental Family History Reviewed: Yes Children Family History Reviewed: Yes Sibling(s) Family History Reviewed.: Yes Medication/Allergy Home Medications: Apixaban [Eliquis 5 mg Tablet] 5 mg PO Q12 06/13/17 Furosemide [Lasix] 40 mg PO DAILY 11/28/16 Glipizide [Glipizide ER] 2.5 mg PO DAILY 11/28/16 Potassium Chloride [K-Tab ER] 20 meq PO DAILY 11/28/16 Tiotropium [place] [Spiriva Respimat] 1 puff IH DAILY 11/28/16 Digoxin [Lanoxin 0.125 mg Tablet] 0.125 mg PO DAILY #30 tablet 12/06/16 Fluticasone Propionate [Flonase Nasal [place] 50 Mcg/[place] 16 gm] 2 spray NASL Q12 #1 spray.pump 12/06/16 Metoprolol Succinate [Toprol Xl 50 mg Tab.sr] 50 mg PO DAILY #30 tab.sr.24h Montelukast Sodium [Singulair 10 mg Tablet] 10 mg PO QHS #30 tablet 12/06/16 Albuterol Sulfate [Ventolin Hfa] 2 puff IH Q4HP PRN 12/21/16 Ascorbic Acid [Vitamin C 500 mg Tablet] 500 mg PO DAILY 05/12/17 Budesonide/Formoterol Fumarate [Symbicort Hfa 160-4.5 Mcg Inhaler 6 gm] 1 puff IH Q12 05/12/17 Diltiazem HCl [Cartia Xt] 180 mg PO DAILY 05/12/17 Ferrous Sulfate [Feosol 325 mg Tablet] 325 mg PO DAILY 05/12/17 Folic Acid [Folvite 1 mg Tablet] 1 mg PO DAILY 05/12/17 Sertraline HCl [Zoloft] 25 mg PO DAILY 05/12/17 Allergies/Adverse Reactions: erythromycin base [Erythromycin Base] Allergy (Mild, Verified 04/29/17 15:15) Review of Systems Review of Systems: Please see history of present illness and past medical history as wall. Constitutional: fever or chills reported. Head : No recent chronic headaches, recent head injury. Eyes: No recent eye pain, diplopia, redness, discharge, acute visual changes. Ears: No recent chronic ear pain, acute hearing loss, ear discharge. Oral cavity: No recent ulcerations, bleeding, oral cavity discomfort. Neck: No recent acute neck pain reported. Hematologic: No recent easy bruising or bleeding or hematologic malignancy reported. Lymphatic: No recent lymphatic malignancy, chronic lymphadenopathy reported yet Cardiovascular system review: See history of present illness. Respiratory system review: Noted cough with yellowish sputum production but denied hemoptysis, blood clots in the lungs reported. Shortness of breath on exertion Gastrointestinal system review: Negative for any recent acute or chronic abdominal pain, hematemesis, melena, recent change in bowel habits. Genitourinary system review: No recent acute or chronic hematuria, flank pain, UTI etc. reported. Skin system review: Negative for any recent abnormal bruising, no rash, no pruritus reported. Neurologic: No prior history of strokes, mini strokes, seizure disorder. Psychologic: No history of major psychosis or major depression reported. Musculoskeletal: Minor aches and pains reported. No acute joint swelling reported. Endocrine: No recent polyuria, polydipsia, recent heat or cold intolerance. Physical Exam Vital Signs: Temp Pulse Resp BP Pulse Ox 128 H 21 H 93/63 L 98 05/12/17 10:25 05/12/17 14:01 05/12/17 14:01 05/12/17 14:01 Exam: GENERAL: well-nourished and in no acute distress. Alert and oriented x3 HEAD: Atraumatic, normocephalic. EYES: Pupils equal round and reactive to light, extraocular movements intact, sclera anicteric, conjunctiva are normal. ENT: TMs normal, nares patent, oropharynx clear without exudates. Moist mucous membranes. No oral ulcerations or bleeding gums noted NECK: supple without lymphadenopathy. Trachea is central. No cervical or axillary lymphadenopathy noted. Carotids are 2+, JVD WNL LUNGS: Respiration seems nonlabored, bilateral wheezes rales or rhonchi noted. No significant dullness noted on percussion. CHEST: Palpation of the chest wall shows no significant chest wall tenderness. No other significant abnormalities noted. 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 ABDOMEN: Soft, no significant tenderness appreciated, normoactive bowel sounds. No guarding, no rebound. No rigidity noted . No masses appreciated. EXTREMITIES: Pedal pulses are 1-2+, no calf tenderness noted. No clubbing or cyanosis.trace to 1+ pedal edema noted NEUROLOGICAL: Focused neurological exam showed no significant neurologic deficit. Normal speech, no focal weakness appreciated. PSYCH: Normal mood, normal affect. Judgment and insight within normal limits. SKIN: No significant ecchymosis, rash, ulcerations or signs of pruritus noted. MUSCULOSKELETAL EXAM: No significant joint swelling noted. Results EKG Comments: A. fib flutter with rapid ventricular response. Impressions: Chest X-Ray 05/12/17 10:22 IMPRESSION: COPD. NO ACUTE RADIOGRAPHIC FINDING IN THE CHEST. Assessment & Plan - Diagnosis (1) Atrial fibrillation with RVR Is this a current diagnosis for this admission?: Yes (2) Chest pain Qualifiers: Chest pain type: unspecified Qualified Code(s): R07.9 - Chest pain, unspecified Is this a current diagnosis for this admission?: Yes (3) Shortness of breath Is this a current diagnosis for this admission?: Yes (4) Acute and chronic respiratory failure Qualifiers: Is this a current diagnosis for this admission?: Yes (5) COPD exacerbation Is this a current diagnosis for this admission?: Yes (6) Sleep apnea syndrome Qualifiers: Sleep apnea type: unspecified type Qualified Code(s): G47.30 - Sleep apnea , unspecified Is this a current diagnosis for this admission?: Yes - Notes Notes: Atrial flutter fibrillation with rapid ventricular response: At this point recommend Cardizem and small dose of beta 1 selective beta-petty as needed for rate control. Continue chronic anticoagulation with Eliquis as she is on. Chest pain: Most likely related to supply demand mismatch from atrial fibrillation with rapid ventricular response. Currently chest pain-free as her heart rate came down. Dyspnea: Most likely related to severe COPD and atrial flutter fibrillation with rapid ventricular response. Acute on chronic respiratory failure: Related to COPD exacerbation and atrial flutter fibrillation. COPD exacerbation: Will leave management to hospitalist. Should typically include steroids, antibiotics and bronchodilator therapy. Sleep apnea syndrome: Patient advised to be compliant with CPAP therapy. Patient advised that someone should bring her CPAP machine from home to be used in the hospital. - Time Time Spent: 30 to 50 Minutes - CODE STATUS was discussed, patient remains full code. Surrogate decision-maker unchanged. Multiple medical problems were addressed. More than 50% of the time spent coordinating care, discussing management plans with involved caregivers. Management plans discussed with involved personnels. Medical decision making was of moderate to high complexity , patient's has multiple comorbidities. Medications reviewed and adjusted accordingly: Yes
[2017-05-12] MEDS ORDERED: GLIPIZIDE XL 2.5 MG TAB.ER.24 PO ONE (15:30)
[2017-05-12] MEDS ORDERED: TIOTROPIUM BROMIDE DPI 5 CAP/KIT (18 MCG/CAP) IH ONE (15:30)
[2017-05-12] MEDS ORDERED: FLUTICASONE NASAL SPRAY 50 MCG/SPRY 120 SPRAY/16 GM NASL ONE (15:30)
--- NOTE | 2017-05-12 15:58 | HISTORY AND PHYSICAL E ---
History and Physical NAME: TEER VALERIO : 1960 AGE: 56Y ADMITTED: 05/12/2017 ROOM: ED20 CHIEF COMPLAINT: Shortness of breath. HISTORY OF PRESENT ILLNESS: She is a 56-year-old female with a past medical history of end-stage COPD, sleep apnea on BiPAP, atrial fibrillation, moderate mitral valve regurgitation, coronary artery disease, hypertension, diabetes, osteoarthritis, ongoing tobacco abuse. The patient takes Cardizem CD 180 mg daily, digoxin 0.125 mg daily, as well as Toprol XL 50 mg daily. She came today to the emergency room with a chief complaint of difficulty breathing. She was found to have atrial fibrillation with rapid ventricular response. Her heart rate was 150. She received 2 doses of Cardizem 20 mg each and started on Cardizem drip and heart rate has come down to 80-90. She feels better. Chest x-ray did not show any pneumonia. She also had chest pain as well as difficulty breathing. No nausea, no vomiting, no dizziness. REVIEW OF SYSTEMS: Twelve systems were reviewed and negative except the history of present illness. PAST MEDICAL HISTORY: 1. Atrial fibrillation. 2. End-stage COPD. 3. Congestive heart failure. 4. Myocardial infarction. 5. Mitral valve regurgitation. 6. Diabetes type 2. 7. Coronary artery disease. PAST SURGICAL HISTORY: 1. Cardiac catheterization. 2. . SOCIAL HISTORY: She currently smoked. She said she quit 4 years ago but according to the chart, she is still smoking. No alcohol use. FAMILY HISTORY: Positive for coronary artery disease and COPD. MEDICATIONS: 1. Symbicort 160/4.5 inhaler twice a day. 2. Spiriva 1 puff daily. 3. Singulair 10 mg daily. 4. Potassium 20 mEq daily. 5. Lasix 40 mg daily. 6. Ventolin 1 puff p.r.n. ALLERGIES: ERYTHROMYCIN. PHYSICAL EXAMINATION: GENERAL: The patient is lying in bed in moderate respiratory distress. VITAL SIGNS: Heart rate is 108, blood pressure 93/63, respirations 21, saturation 98% on 2 L. HEENT: Head normocephalic, atraumatic. Pupils are equal, round and reactive to light and accommodation bilaterally. Extraocular movements are intact. Ears: Tympanic membranes intact bilaterally. No discharge from the ear, no discharge from the nose. NECK: Supple, no increased JVD, no thyromegaly, no lymphadenopathy. CARDIOVASCULAR: Normal S1,S2. Irregular, irregular, tachycardic. RESPIRATORY: Not using accessory muscles. ABDOMEN: Soft, nontender. Bowel sounds active. MUSCULOSKELETAL: No edema. NEUROLOGIC: Awake and alert. SKIN: No rash. DIAGNOSTIC DATA: Labs: White blood count 12.3, hemoglobin 11.2. Sodium 146, potassium 3.7, creatinine 0.7. Urine analysis with moderate protein. ABG pH 7.3. ASSESSMENT: 1. Atrial fibrillation with rapid ventricular response. 2. [id number]-aojejbh hypoxic respiratory failure. 3. Hypertension. 4. COPD, end-stage. 5. Mitral valve regurgitation. PLAN: 1. The patient received 2 doses of Cardizem 20 mg, total of 40 and now he is on Cardizem drip. 2. Will discontinue Cardizem drip and start Cardizem 60 mg every 6 hours. The plan is to increase the dose to Cardizem CD to 240 mg tomorrow morning. 3. Continue metoprolol 50 mg daily. 4. Cardiac enzymes. 5. Labs tomorrow morning. 6. Cardiology consult, Dr. Grover notified. 7. Continue home medication which includes Eliquis 5 mg twice a day, Lasix 40 mg daily, Singulair 10 mg daily, Spiriva, Symbicort, folic acid, Glipizide 2.5 mg daily, Flonase, digoxin 0.25 mg daily, Zoloft, ferrous sulfate. 8. We will check also a digoxin level. CODE STATUS: She is FULL CODE. TIME SPENT: One hour. DICTATING PHYSICIAN: GLADYS DACOSTA M.D. [id number] PHY#: [id number] ID: [id number] JOB#: [id number] ACCT: [id number] cc:GLADYS DACOSTA M.D. > MTDD
[2017-05-12] MEDS: LANSOPRAZOLE 15 MG TAB.RAP.DR PO SCH (16:28)
[2017-05-12] MEDS: FERROUS SULFATE 325 MG TABLET PO SCH (16:35)
[2017-05-12] MEDS: DILTIAZEM HCL 60 MG TABLET PO SCH ×2 (17:12→23:35)
[2017-05-12] MEDS: MONTELUKAST SODIUM 10 MG TABLET PO SCH (17:12)
[2017-05-12] MEDS ORDERED: NORMAL SALINE 500 ML IV ONE ×2 (19:30→19:45)
[2017-05-12] MEDS: NORMAL SALINE 1000 ML 1,000 ML IV PRN (19:33)
[2017-05-12] MEDS: LEVALBUTEROL HCL NEB 1.25 MG/3 ML AMPUL NEB PRN (20:37)
[2017-05-12] MEDS: APIXABAN 5 MG TABLET PO SCH (22:24)
[2017-05-12] MEDS: BUDESONIDE/FORMOTEROL 160-4.5 MCG 60 PUFF/6 GM MDI IH SCH (22:24)
[2017-05-12] MEDS: ZOLPIDEM TARTRATE 5 MG TABLET PO SCH (22:26)
[2017-05-13] MEDS: NITROGLYCERIN 0.4 MG/TAB 25 TAB/BOTTLE SL PRN ×2 (02:03→02:10)
[2017-05-13 04:25] LABS: ABSOLUTE LYMPHOCYTES (AUTO) 0.9 10^3/uL (0.5-4.7); ABSOLUTE NEUT (AUTO) 9.3 10^3/uL (1.7-8.2); BASOPHILS % (AUTO) 0.4 % (0-2); EOSINOPHILS % (AUTO) 0.1 % (0-6); HEMATOCRIT 32.9 % (36.0-47.0); HEMOGLOBIN 10.8 g/dL (12.0-15.5); HGB HCT DIFFERENCE -0.5; LYMPHOCYTES % (AUTO) 7.7 % (13-45); MEAN CORPUSCULAR HEMOGLOBIN 25.9 pg (27.0-33.4); MEAN CORPUSCULAR HGB CONC 32.7 g/dL (32.0-36.0); MEAN CORPUSCULAR VOLUME 79 fl (80-97); RED BLOOD COUNT 4.16 10^6/uL (3.72-5.28); RED CELL DISTRIBUTION WIDTH 16.9 % (11.5-14.0); SEGMENTED NEUTROPHILS % (AUTO) 82.8 % (42-78); WHITE BLOOD COUNT 11.3 10^3/uL (4.0-10.5)
[2017-05-13 04:42] LABS: ANION GAP 11 (5-19); BLOOD UREA NITROGEN 7 mg/dL (7-20); CALCIUM 8.6 mg/dL (8.4-10.2); CARBON DIOXIDE 28 mmol/L (22-30); CHLORIDE 107 mmol/L (98-107); CREATININE RESULT 0.57 mg/dL (0.52-1.25); GLUCOSE 97 mg/dL (75-110); POTASSIUM 4.2 mmol/L (3.6-5.0); SODIUM 146.1 mmol/L (137-145)
[2017-05-13 04:52] LABS: CREATINE KINASE MB 1.1 ng/mL (<4.55); TROPONIN I 0.019 ng/mL
[2017-05-13] MEDS: DILTIAZEM HCL 60 MG TABLET PO SCH ×3 (05:02→17:33)
[2017-05-13] MEDS: LANSOPRAZOLE 15 MG TAB.RAP.DR PO SCH ×2 (05:03→17:33)
[2017-05-13] MEDS: LEVALBUTEROL HCL NEB 1.25 MG/3 ML AMPUL NEB PRN ×2 (05:58→20:13)
[2017-05-13] MEDS: NORMAL SALINE 1000 ML 1,000 ML IV PRN ×2 (09:47→21:18)
[2017-05-13] MEDS ORDERED: METOPROLOL SUCCINATE 50 MG TAB.SR.24H PO SCH (10:00)
[2017-05-13] MEDS ORDERED: FUROSEMIDE 40 MG TABLET PO SCH (10:00)
[2017-05-13 10:58] LABS: CREATINE KINASE MB 0.84 ng/mL (<4.55); TROPONIN I 0.02 ng/mL
[2017-05-13] MEDS ORDERED: ACETAMINOPHEN 325 MG TABLET PO PRN (11:11)
[2017-05-13] MEDS: APIXABAN 5 MG TABLET PO SCH ×2 (11:24→21:19)
[2017-05-13] MEDS: BUDESONIDE/FORMOTEROL 160-4.5 MCG 60 PUFF/6 GM MDI IH SCH ×2 (11:24→21:19)
[2017-05-13] MEDS: FERROUS SULFATE 325 MG TABLET PO SCH (11:25)
[2017-05-13] MEDS: DIGOXIN 0.125 MG TABLET PO SCH (11:25)
[2017-05-13] MEDS: FLUTICASONE NASAL SPRAY 50 MCG/SPRY 120 SPRAY/16 GM NASL SCH (11:26)
[2017-05-13] MEDS: FOLIC ACID 1 MG TABLET PO SCH (11:26)
[2017-05-13] MEDS: SERTRALINE HCL 50 MG TABLET PO SCH (11:27)
[2017-05-13] MEDS: GLIPIZIDE XL 2.5 MG TAB.ER.24 PO SCH (11:27)
[2017-05-13] MEDS: TIOTROPIUM BROMIDE DPI 5 CAP/KIT (18 MCG/CAP) IH SCH (11:28)
--- NOTE | 2017-05-13 11:38 | PDOC PROGRESS REPORT ---
Subjective Progress Note for:: 05/13/17 Subjective:: Patient about the same. Heart rate is better controlled. Still having some intermittent chest tightness but cardiac enzymes has been negative.. Pt is denying any chest arm or neck discomfort. Patient denying any PND, orthopnea. Patient denied any sustained palpitations, dizziness, syncope, near syncope. Patient denying any fever chills. Patient denying any other significant discomfort. Patient is maintaining atrial flutter fibrillation. Review of systems: Rest review of systems negative. Medications: Medications have been reviewed. Physical Exam Vital Signs: Temp Pulse Resp BP Pulse Ox 99.4 F 131 H 21 H 137/81 H 92 05/13/17 07:35 05/13/17 07:35 05/13/17 07:35 05/13/17 09:01 05/13/17 07:35 Intake & Output 05/12/17 05/13/17 05/14/17 06:59 06:59 06:59 Intake Total 2888 Output Total 400 Balance 2488 Weight 63.6 kg Exam: GENERAL: well-nourished and in mild respiratory distress. Alert and oriented x3 HEAD: Atraumatic, normocephalic. EYES: Pupils equal round and reactive to light, extraocular movements intact, sclera anicteric, conjunctiva are normal. ENT: TMs normal, nares patent, oropharynx clear without exudates. Moist mucous membranes. No oral ulcerations or bleeding gums noted NECK: supple without lymphadenopathy. Trachea is central. No cervical or axillary lymphadenopathy noted. Carotids are 2+, JVD WNL LUNGS: Respiration seems nonlabored, no significant accessory muscle action noted. Bilateral fine crackles and bilateral mild wheezes rales or rhonchi noted. No significant dullness noted on percussion. CHEST: Palpation of the chest wall shows no significant chest wall tenderness. No other significant abnormalities noted. 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 ABDOMEN: Soft, no significant tenderness appreciated, normoactive bowel sounds. No guarding, no rebound. No rigidity noted . No masses appreciated. EXTREMITIES: Pedal pulses are 1-2+, no calf tenderness noted. No clubbing or cyanosis.trace pedal edema noted NEUROLOGICAL: Focused neurological exam showed no significant neurologic deficit. Normal speech, no focal weakness appreciated. PSYCH: Normal mood, normal affect. Judgment and insight within normal limits. SKIN: No significant ecchymosis, rash, ulcerations or signs of pruritus noted. MUSCULOSKELETAL EXAM: No significant joint swelling noted. Results Laboratory Results: 05/13/17 04:08 05/13/17 04:08 05/13/17 05/13/17 04:08 04:08 WBC 11.3 H RBC 4.16 Hgb 10.8 L Hct 32.9 L MCV 79 L MCH 25.9 L MCHC 32.7 RDW 16.9 H Plt Count 219 Seg Neutrophils % 82.8 H Lymphocytes % 7.7 L Monocytes % 9.0 Eosinophils % 0.1 Basophils % 0.4 Absolute Neutrophils 9.3 H Absolute Lymphocytes 0.9 Absolute Monocytes 1.0 Absolute Eosinophils 0.0 Absolute Basophils 0.0 Sodium 146.1 H Potassium 4.2 Chloride 107 Carbon Dioxide 28 Anion Gap 11 BUN 7 Creatinine 0.57 Est GFR ( Amer) > 60 Est GFR (Non-Af Amer) > 60 Glucose 97 Calcium 8.6 05/12/17 05/12/17 05/13/17 17:40 22:10 04:08 Creatine Kinase 72 71 72 CK-MB (CK-2) Troponin I 05/13/17 05/13/17 05/13/17 04:08 10:10 10:10 Creatine Kinase 74 CK-MB (CK-2) 1.10 0.84 Troponin I 0.019 0.020 EKG Comments: Shows atrial flutter fibrillation with intermittent rapid ventricular response. Impressions: Chest X-Ray 05/12/17 10:22 IMPRESSION: COPD. NO ACUTE RADIOGRAPHIC FINDING IN THE CHEST. Assessment & Plan - Diagnosis (1) Atrial fibrillation with RVR Is this a current diagnosis for this admission?: Yes (2) Chest pain Qualifiers: Chest pain type: unspecified Qualified Code(s): R07.9 - Chest pain, unspecified Is this a current diagnosis for this admission?: Yes (3) Shortness of breath Is this a current diagnosis for this admission?: Yes (4) Acute and chronic respiratory failure Qualifiers: Is this a current diagnosis for this admission?: Yes (5) COPD exacerbation Is this a current diagnosis for this admission?: Yes (6) Sleep apnea syndrome Qualifiers: Sleep apnea type: unspecified type Qualified Code(s): G47.30 - Sleep apnea , unspecified Is this a current diagnosis for this admission?: Yes - Notes Notes: Atrial flutter fibrillation with rapid ventricular response: At this point continue with Cardizem and small dose of beta 1 selective beta-petty as needed for rate control. Continue chronic anticoagulation with Eliquis as she is on. Chest pain: Most likely related to supply demand mismatch from atrial fibrillation with rapid ventricular response. Patient does have intermittent chest tightness. Most likely related to underlying CAD but could well be from COPD exacerbation. Do not feel patient can withstand a stress test at this point until her COPD exacerbation gets better. Dyspnea: Most likely related to severe COPD and atrial flutter fibrillation with rapid ventricular response. Acute on chronic respiratory failure: Related to COPD exacerbation and atrial flutter fibrillation. COPD exacerbation: Will leave management to hospitalist. Should typically include steroids, antibiotics and bronchodilator therapy. Sleep apnea syndrome: Patient advised to be compliant with CPAP therapy. Patient advised that someone should bring her CPAP machine from home to be used in the hospital. - Time Time with patient: 15-25 minutes - CODE STATUS was discussed, patient remains full code. Surrogate decision-maker unchanged. Multiple medical problems were addressed. More than 50% of the time spent coordinating care, discussing management plans with involved caregivers. Management plans discussed with involved personnels. Medical decision making was of moderate to high complexity , patient's has multiple comorbidities. Medications reviewed and adjusted accordingly: Yes
[2017-05-13] MEDS: AZITHROMYCIN 250 MG TABLET PO SCH (12:02)
[2017-05-13] MEDS: CEFTRIAXONE 1 GM/D5W RTU 1 GM/50 ML RTUPB IV SCH (12:03)
--- NOTE | 2017-05-13 12:21 | PDOC PROGRESS REPORT ---
Subjective Progress Note for:: 05/13/17 Subjective:: f/u: afib with RVR, acute bronchitis, COPD reports she is not doing well, still coughing and wheezing and feels very SOA; denies fevers/chills, N/V/D but thinks she is getting pneumonia again and wondering when we are going to start treating her with abx. her HR is not well controlled but her resp rate and WOB are increased as well. she denies hematuria, hemoptysis, melena. ROS: as above, all systems reviewed, remaining systems negative. Physical Exam Vital Signs: Temp Pulse Resp BP Pulse Ox 99.4 F 131 H 21 H 137/81 H 92 05/13/17 07:35 05/13/17 07:35 05/13/17 07:35 05/13/17 09:01 05/13/17 07:35 Intake & Output 05/12/17 05/13/17 05/14/17 06:59 06:59 06:59 Intake Total 2888 Output Total 400 Balance 2488 Weight 63.6 kg General appearance: PRESENT: mild distress - resp and anxioius, thin, well- developed Head exam: PRESENT: atraumatic Eye exam: PRESENT: EOMI. ABSENT: scleral icterus Mouth exam: PRESENT: moist, neck supple Neck exam: PRESENT: full ROM. ABSENT: tenderness Respiratory exam: PRESENT: accessory muscle use, prolonged expiratory phas, tachypnea, wheezes Cardiovascular exam: PRESENT: irregular rhythm, systolic murmur - 2/6 soft at apex, tachycardia Pulses: PRESENT: normal radial pulses Vascular exam: PRESENT: normal capillary refill GI/Abdominal exam: PRESENT: normal bowel sounds, soft. ABSENT: tenderness Extremities exam: PRESENT: pedal edema - trace. ABSENT: tenderness Musculoskeletal exam: PRESENT: ambulatory, full ROM Neurological exam: PRESENT: alert, awake, oriented to person, oriented to place , oriented to time, oriented to situation Psychiatric exam: PRESENT: appropriate affect, normal mood Skin exam: PRESENT: dry, warm Results Laboratory Results: 05/13/17 04:08 05/13/17 04:08 05/13/17 05/13/17 04:08 04:08 WBC 11.3 H RBC 4.16 Hgb 10.8 L Hct 32.9 L MCV 79 L MCH 25.9 L MCHC 32.7 RDW 16.9 H Plt Count 219 Seg Neutrophils % 82.8 H Lymphocytes % 7.7 L Monocytes % 9.0 Eosinophils % 0.1 Basophils % 0.4 Absolute Neutrophils 9.3 H Absolute Lymphocytes 0.9 Absolute Monocytes 1.0 Absolute Eosinophils 0.0 Absolute Basophils 0.0 Sodium 146.1 H Potassium 4.2 Chloride 107 Carbon Dioxide 28 Anion Gap 11 BUN 7 Creatinine 0.57 Est GFR ( Amer) > 60 Est GFR (Non-Af Amer) > 60 Glucose 97 Calcium 8.6 05/12/17 05/12/17 05/13/17 17:40 22:10 04:08 Creatine Kinase 72 71 72 CK-MB (CK-2) Troponin I 05/13/17 05/13/17 05/13/17 04:08 10:10 10:10 Creatine Kinase 74 CK-MB (CK-2) 1.10 0.84 Troponin I 0.019 0.020 Impressions: Chest X-Ray 05/12/17 10:22 IMPRESSION: COPD. NO ACUTE RADIOGRAPHIC FINDING IN THE CHEST. Status: Image reviewed by me - agree with rads Assessment & Plan - Diagnosis (1) Bronchitis, acute Qualifiers: Bronchitis organism: unspecified organism Qualified Code(s): J20.9 - Acute bronchitis, unspecified Plan: GN coccobacillus noted in sputum, possibly H Flu or Mycoplasma; will add rocephin and zmax and monitor for effect; she reports a IV site reaction to infiltrated emycin in the past but no s/s of true allergic or anaphylactic reaction. (2) Atrial fibrillation with RVR Is this a current diagnosis for this admission?: Yes Plan: change toprol from long acting to short and change to bid dosing for tighter control and titrate to effect; continue eliquis and follow dr franco's rec's. I think her HR will improve if we can get her respiratory status improved. (3) Acute and chronic respiratory failure with hypoxia Is this a current diagnosis for this admission?: Yes Plan: add steroids, continue nebs as her clinical condition will allow. (4) COPD exacerbation Is this a current diagnosis for this admission?: Yes Plan: as above (5) Sleep apnea syndrome Qualifiers: Sleep apnea type: unspecified type Qualified Code(s): G47.30 - Sleep apnea , unspecified Is this a current diagnosis for this admission?: Yes Plan: nocturnal CPAP as tolerated - Time Time Spent with patient: 35 or more minutes Medications reviewed and adjusted accordingly: Yes
[2017-05-13] MEDS ORDERED: METHYLPREDNISOLONE INJ 40 MG/1 ML SDV IV ONE (12:45)
[2017-05-13 17:08] LABS: CREATINE KINASE MB 1.25 ng/mL (<4.55); TROPONIN I 0.014 ng/mL
[2017-05-13] MEDS: MONTELUKAST SODIUM 10 MG TABLET PO SCH (17:32)
[2017-05-13] MEDS: METOPROLOL TARTRATE 50 MG TABLET PO SCH (21:19)
[2017-05-13] MEDS: ZOLPIDEM TARTRATE 5 MG TABLET PO SCH (21:19)
[2017-05-13] MEDS: METHYLPREDNISOLONE INJ 40 MG/1 ML SDV IV SCH (21:19)
[2017-05-14] MEDS: DILTIAZEM HCL 60 MG TABLET PO SCH ×4 (00:37→17:18)
[2017-05-14 05:30] LABS: HEMATOCRIT 33.1 % (36.0-47.0); HEMOGLOBIN 10.5 g/dL (12.0-15.5); HGB HCT DIFFERENCE -1.6; MEAN CORPUSCULAR HEMOGLOBIN 25.1 pg (27.0-33.4); MEAN CORPUSCULAR HGB CONC 31.7 g/dL (32.0-36.0); MEAN CORPUSCULAR VOLUME 79 fl (80-97); RED BLOOD COUNT 4.18 10^6/uL (3.72-5.28); RED CELL DISTRIBUTION WIDTH 16.6 % (11.5-14.0)
[2017-05-14 05:53] LABS: ANION GAP 13 (5-19); BLOOD UREA NITROGEN 10 mg/dL (7-20); CARBON DIOXIDE 28 mmol/L (22-30); CHLORIDE 106 mmol/L (98-107); GLUCOSE 141 mg/dL (75-110); POTASSIUM 4.3 mmol/L (3.6-5.0); SODIUM 146.5 mmol/L (137-145)
[2017-05-14 06:18] LABS: BAND NEUTROPHILS % (MANUAL) 4 % (3-5); BASOPHILS % (MANUAL) 0 % (0-2); EOSINOPHILS % (MANUAL) 0 % (0-6); LYMPHOCYTES % (MANUAL) 4 % (13-45); TOTAL CELLS COUNTED 100
[2017-05-14 06:19] LABS: ANISOCYTOSIS 1+; MICROCYTOSIS SLIGHT; OVALOCYTES SLIGHT; POIKILOCYTOSIS SLIGHT; TARGET CELLS SLIGHT; TOXIC GRANULATION SLIGHT; TOXIC VACUOLATION PRESENT
[2017-05-14] MEDS: LANSOPRAZOLE 15 MG TAB.RAP.DR PO SCH ×2 (06:33→17:18)
[2017-05-14] MEDS: LEVALBUTEROL HCL NEB 1.25 MG/3 ML AMPUL NEB PRN ×2 (10:26→20:57)
--- NOTE | 2017-05-14 10:52 | PDOC PROGRESS REPORT ---
Subjective Progress Note for:: 05/14/17 Subjective:: f/u: afib with RVR, acute bronchitis, COPD Feeling significantly better with the initiation of treatment for what turned out to be a Haemophilus influenza lower respiratory tract infection by clinical findings and sputum culture; her heart rate is improved as well. Denies fevers/ chills, N/V/D, she denies hematuria, hemoptysis, melena. ROS: as above, all systems reviewed, remaining systems negative. Physical Exam Vital Signs: Temp Pulse Resp BP Pulse Ox 97.8 F 92 24 H 119/53 L 94 05/14/17 07:44 05/14/17 10:26 05/14/17 10:26 05/14/17 07:44 05/14/17 10:26 Intake & Output 05/13/17 05/14/17 05/15/17 06:59 06:59 06:59 Intake Total 2888 3568 Output Total 400 Balance 2488 3568 Weight 63.6 kg 65.3 kg General appearance: No distress, thin, well-developed Head exam: PRESENT: atraumatic Eye exam: PRESENT: EOMI. ABSENT: scleral icterus Mouth exam: PRESENT: moist, neck supple Neck exam: PRESENT: full ROM. 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 ABSENT: tenderness Extremities exam: PRESENT: pedal edema - trace. ABSENT: tenderness Musculoskeletal exam: PRESENT: ambulatory, full ROM Neurological exam: PRESENT: alert, awake, oriented to person, oriented to place , oriented to time, oriented to situation Psychiatric exam: PRESENT: appropriate affect, normal mood Skin exam: PRESENT: dry, warm Results Laboratory Results: 05/14/17 04:59 05/14/17 04:59 05/14/17 05/14/17 04:59 04:59 WBC 12.0 H RBC 4.18 Hgb 10.5 L Hct 33.1 L MCV 79 L MCH 25.1 L MCHC 31.7 L RDW 16.6 H Plt Count 249 Seg Neutrophils % Not Reportable Lymphocytes % Not Reportable Monocytes % Not Reportable Eosinophils % Not Reportable Basophils % Not Reportable Absolute Neutrophils Not Reportable Absolute Lymphocytes Not Reportable Absolute Monocytes Not Reportable Absolute Eosinophils Not Reportable Absolute Basophils Not Reportable Sodium 146.5 H Potassium 4.3 Chloride 106 Carbon Dioxide 28 Anion Gap 13 BUN 10 Creatinine 0.50 L Est GFR ( Amer) > 60 Est GFR (Non-Af Amer) > 60 Glucose 141 H Calcium 9.0 05/12/17 05/12/17 05/13/17 17:40 22:10 04:08 Creatine Kinase 72 71 72 CK-MB (CK-2) Troponin I 05/13/17 05/13/17 05/13/17 04:08 10:10 10:10 Creatine Kinase 74 CK-MB (CK-2) 1.10 0.84 Troponin I 0.019 0.020 05/13/17 05/13/17 16:23 16:23 Creatine Kinase 82 CK-MB (CK-2) 1.25 Troponin I 0.014 Assessment & Plan - Diagnosis (1) Haemophilus influenzae infection Is this a current diagnosis for this admission?: Yes Plan: Can likely de-escalate antibiotics tomorrow to single regimen (2) Bronchitis, acute Qualifiers: Bronchitis organism: unspecified organism Qualified Code(s): J20.9 - Acute bronchitis, unspecified Plan: Improved with systemic steroids, can probably change to oral regimen tomorrow (3) Atrial fibrillation with RVR Is this a current diagnosis for this admission?: Yes Plan: Improved with treatment of the underlying exacerbating factor as noted above. Change to titrate regimen as needed. (4) Acute and chronic respiratory failure with hypoxia Is this a current diagnosis for this admission?: Yes Plan: Improved but not back to baseline. Treatment as noted above. (5) COPD exacerbation Is this a current diagnosis for this admission?: Yes (6) Sleep apnea syndrome Qualifiers: Sleep apnea type: unspecified type Qualified Code(s): G47.30 - Sleep apnea , unspecified Is this a current diagnosis for this admission?: Yes - Time Time Spent with patient: 25-34 minutes Medications reviewed and adjusted accordingly: Yes
[2017-05-14] MEDS: BUDESONIDE/FORMOTEROL 160-4.5 MCG 60 PUFF/6 GM MDI IH SCH ×2 (11:06→22:12)
[2017-05-14] MEDS: TIOTROPIUM BROMIDE DPI 5 CAP/KIT (18 MCG/CAP) IH SCH (11:08)
[2017-05-14] MEDS: METHYLPREDNISOLONE INJ 40 MG/1 ML SDV IV SCH ×2 (11:08→22:08)
[2017-05-14] MEDS: FLUTICASONE NASAL SPRAY 50 MCG/SPRY 120 SPRAY/16 GM NASL SCH (11:09)
[2017-05-14] MEDS: CEFTRIAXONE 1 GM/D5W RTU 1 GM/50 ML RTUPB IV SCH (11:09)
[2017-05-14] MEDS: SERTRALINE HCL 50 MG TABLET PO SCH (11:10)
[2017-05-14] MEDS: DIGOXIN 0.125 MG TABLET PO SCH (11:10)
[2017-05-14] MEDS: FOLIC ACID 1 MG TABLET PO SCH (11:10)
[2017-05-14] MEDS: GLIPIZIDE XL 2.5 MG TAB.ER.24 PO SCH (11:10)
[2017-05-14] MEDS: METOPROLOL TARTRATE 50 MG TABLET PO SCH ×2 (11:11→22:09)
[2017-05-14] MEDS: AZITHROMYCIN 250 MG TABLET PO SCH (11:12)
[2017-05-14] MEDS: FERROUS SULFATE 325 MG TABLET PO SCH (11:12)
[2017-05-14] MEDS: APIXABAN 5 MG TABLET PO SCH ×2 (11:32→22:10)
[2017-05-14] MEDS: MONTELUKAST SODIUM 10 MG TABLET PO SCH (17:18)
[2017-05-14] MEDS: ZOLPIDEM TARTRATE 5 MG TABLET PO SCH (22:10)
--- NOTE | 2017-05-15 00:23 | PROGRESS NOTE E ---
Progress Note NAME: TERE VALERIO : 1960 AGE: 56Y DATE: 05/14/2017 ROOM: 318 SUBJECTIVE: Note at times the patient's heart rate goes up to 129. At present it is 72. She still has cough and shortness of breath. She says that cough is not productive of yellow sputum. Earlier the sputum used to be clark. She denies any chest pain or discomfort. There is no orthopnea present but no PND. There is no leg edema. OBJECTIVE: GENERAL: On examination, the patient is well built and well nourished in some distress due to cough. VITAL SIGNS: She is afebrile with a temperature of 97.8 degrees Fahrenheit. Pulse at present is 72. Respirations are 18 per minute, blood pressure is 119/53. Oxygen saturation is 96% on 3 L nasal cannula. HEENT: Head is atraumatic, normocephalic. Eyes: Pupils are equal, round and regular, reactive to light and accommodation. Extraocular movements are normal. There is no conjunctival pallor. There is no scleral icterus. ENT is negative. NECK: Supple. There is no JVD. Carotids are equal. There is no bruit. There is no goiter. There is no lymphadenopathy. Trachea is central. LUNGS: Show diminished air entry, prolonged expiration on auscultation with a few dry crackles in the right lower lobe/right base. HEART: S1 and S2 heard. There is variable S1 in intensity. There is no S3 gallop. There is no S4 gallop. There is a systolic murmur in the left sternal border and the apex. There is no rub. ABDOMEN: Soft, nontender. There is no hepatosplenomegaly. Bowel sounds are well heard. EXTREMITIES: Femorals are slightly diminished. There are no femoral bruits. Leg pulses are diminished. There is no pedal edema. There is no DVT or cellulitis. There is no calf tenderness. CENTRAL NERVOUS SYSTEM: The patient is conscious, awake, alert and oriented x3 with no focal deficits. PSYCHIATRIC: The patient's judgment and insight are intact. Her affect is normal. LABORATORY DATA: The patient's white count is 12,000, hemoglobin 10.5, hematocrit 33.1, platelet count is 249,000. The patient's digoxin level yesterday was 0.50. The patient's sodium is 146.5, potassium 4.3, chloride 106, CO2 28, BUN 10, creatinine 0.50, GFR is greater than 60, glucose is 141, calcium 9.0. Her cardiac enzymes have been negative x3. IMPRESSION: 1. ATRIAL FIBRILLATION WITH AT TIMES FAST VENTRICULAR RESPONSE. At present seems to be controlled. Continue Eliquis, continue digoxin and continue Cardizem. Would recommend *------* Cardizem to long-acting one. 2. CHEST PAIN. Resolved, seems to be noncardiac. 3. SHORTNESS OF BREATH. Due to acute exacerbation of COPD. 4. SMALL PNEUMONIA, RIGHT LOWER LOBE WITH A SMALL PLEURAL EFFUSION. 5. [id number] RESPIRATORY FAILURE. 6. COPD EXACERBATION. 7. SLEEP APNEA SYNDROME. RECOMMENDATIONS: As mentioned earlier, will continue the patient on antibiotics and also respiratory treatments. Will follow with you. Note 30 minutes spent on this patient, with more than 50% of the time spent on direct patient care and medications have been reviewed. We follow with you. Medical decision making is of moderate complexity. Note that the patient is a FULL CODE. Her surrogate healthcare decision-maker has not changed. DICTATING PHYSICIAN: ANIL BA M.D. [id number] ANGEL#: [id number] ID: [id number] JOB#: [id number] ACCT: [id number] cc: >
[2017-05-15] MEDS: DILTIAZEM HCL 60 MG TABLET PO SCH ×4 (00:27→17:30)
[2017-05-15] MEDS: LANSOPRAZOLE 15 MG TAB.RAP.DR PO SCH ×2 (06:35→17:30)
[2017-05-15] MEDS: BUDESONIDE/FORMOTEROL 160-4.5 MCG 60 PUFF/6 GM MDI IH SCH ×2 (09:49→22:58)
[2017-05-15] MEDS: TIOTROPIUM BROMIDE DPI 5 CAP/KIT (18 MCG/CAP) IH SCH (09:49)
[2017-05-15] MEDS: FLUTICASONE NASAL SPRAY 50 MCG/SPRY 120 SPRAY/16 GM NASL SCH (09:49)
[2017-05-15] MEDS: METOPROLOL TARTRATE 50 MG TABLET PO SCH ×2 (09:50→22:58)
[2017-05-15] MEDS: METHYLPREDNISOLONE INJ 40 MG/1 ML SDV IV SCH ×2 (09:50→22:58)
[2017-05-15] MEDS: FOLIC ACID 1 MG TABLET PO SCH (09:51)
[2017-05-15] MEDS: GLIPIZIDE XL 2.5 MG TAB.ER.24 PO SCH (09:51)
[2017-05-15] MEDS: SERTRALINE HCL 50 MG TABLET PO SCH (09:51)
[2017-05-15] MEDS: APIXABAN 5 MG TABLET PO SCH ×2 (09:52→22:58)
[2017-05-15] MEDS: DIGOXIN 0.125 MG TABLET PO SCH (09:52)
[2017-05-15] MEDS: FERROUS SULFATE 325 MG TABLET PO SCH (09:52)
[2017-05-15] MEDS: LEVALBUTEROL HCL NEB 1.25 MG/3 ML AMPUL NEB PRN ×2 (11:23→20:19)
[2017-05-15] MEDS: AZITHROMYCIN 250 MG TABLET PO SCH (12:07)
[2017-05-15] MEDS: CEFTRIAXONE 1 GM/D5W RTU 1 GM/50 ML RTUPB IV SCH (12:09)
--- NOTE | 2017-05-15 17:29 | PDOC PROGRESS REPORT ---
Subjective Progress Note for:: 05/15/17 Subjective:: Patient's breathing has improved today though she is still wheezing and most especially with any ambulation. She is still requiring a little bit more than her regular nasal cannula oxygen. She is coughing but not expectorating. No hemoptysis. No fevers or chills. She is eating and drinking better. Chest pain that she had on admission is now resolved. No constipation or dysuria. Reason For Visit: ATRIAL FIBRILLATION, COPD with exacerbation, H flu pneumonia Physical Exam Vital Signs: Temp Pulse Resp BP Pulse Ox 97.6 F 71 20 118/63 96 05/15/17 11:10 05/15/17 14:00 05/15/17 11:23 05/15/17 11:10 05/15/17 11:23 Intake & Output 05/14/17 05/15/17 05/16/17 06:59 06:59 06:59 Intake Total 3568 2841 540 Output Total 600 Balance 3568 2241 540 Weight 65.3 kg 62.6 kg General appearance: PRESENT: no acute distress, thin, well-developed Head exam: PRESENT: atraumatic, normocephalic Eye exam: PRESENT: EOMI. ABSENT: periorbital swelling, scleral icterus Ear exam: PRESENT: normal external ear exam Mouth exam: PRESENT: dry mucosa Neck exam: ABSENT: lymphadenopathy Respiratory exam: PRESENT: decreased breath sounds, prolonged expiratory phas, rhonchi, wheezes. ABSENT: accessory muscle use, chest wall tenderness Cardiovascular exam: PRESENT: irregular rhythm. ABSENT: tachycardia GI/Abdominal exam: PRESENT: normal bowel sounds, soft. ABSENT: distended, guarding, mass, organolmegaly, rebound, tenderness Musculoskeletal exam: PRESENT: ambulatory, normal inspection Neurological exam: PRESENT: alert, awake, oriented to person, oriented to place , oriented to time, oriented to situation, CN II-XII grossly intact Psychiatric exam: PRESENT: appropriate affect. ABSENT: anxious, depressed Skin exam: PRESENT: intact Results Laboratory Results: 05/14/17 04:59 05/14/17 04:59 05/12/17 05/12/17 05/13/17 17:40 22:10 04:08 Creatine Kinase 72 71 72 CK-MB (CK-2) Troponin I 05/13/17 05/13/17 05/13/17 04:08 10:10 10:10 Creatine Kinase 74 CK-MB (CK-2) 1.10 0.84 Troponin I 0.019 0.020 05/13/17 05/13/17 16:23 16:23 Creatine Kinase 82 CK-MB (CK-2) 1.25 Troponin I 0.014 Impressions: Chest X-Ray 05/12/17 10:22 IMPRESSION: COPD. NO ACUTE RADIOGRAPHIC FINDING IN THE CHEST. Assessment & Plan - Diagnosis (1) Pneumonia due to Hemophilus influenzae (H. influenzae) Qualifiers: Laterality: right Lung location: lower lobe of lung Qualified Code(s): J14 - Pneumonia due to Hemophilus influenzae Is this a current diagnosis for this admission?: Yes Plan: Clinically patient is improving. She is still requiring more oxygen than at her baseline. No fevers or chills. No hemoptysis. She has received 3 days of azithromycin and that is being discontinued. We will continue her ceftriaxone for now. (2) COPD exacerbation Is this a current diagnosis for this admission?: Yes Plan: Overall improving albeit slowly. Will continue IV steroids. We will titrate oxygen as she tolerates keeping sats between 88% and low to mid 90s. No med changes made today. (3) Atrial fibrillation with RVR Is this a current diagnosis for this admission?: Yes Plan: Stable from this perspective. Heart rate controlled with diltiazem and digoxin. No changes. Continue current anticoagulation. (4) Chest pain Qualifiers: Chest pain type: unspecified Qualified Code(s): R07.9 - Chest pain, unspecified Is this a current diagnosis for this admission?: Yes Plan: This seemed to be a pleuritic type chest pain possibly related to her pnuemmonia and COPD exacerbation. Pain is now completely resolved. (5) Shortness of breath Is this a current diagnosis for this admission?: Yes Plan: Multifactorial secondary to COPD, rapid A. fib, pneumonia. We will continue to treat underlying problems and monitor the symptom and treat as indicated. (6) Acute and chronic respiratory failure with hypoxia Is this a current diagnosis for this admission?: Yes Plan: Multifactorial with COPD and pneumonia contributing. We will titrate her oxygen down to her baseline as tolerated. We will continue to treat underlying causes. - Time Time Spent with patient: 25-34 minutes Smoking Cessation Education: - Smoking cessation was addressed, patient stopped smoking 1 year ago.
[2017-05-15] MEDS: MONTELUKAST SODIUM 10 MG TABLET PO SCH (17:32)
--- NOTE | 2017-05-15 22:33 | PROGRESS NOTE E ---
Progress Note NAME: TERE VALEROI : 1960 AGE: 56Y DATE: 05/15/2017 ROOM: 318 SUBJECTIVE: The patient states she feels much better. She is coughing up which is now white sputum. She has some orthopnea but no PND or leg edema. There is no chest pain or discomfort. The shortness of breath is remarkably improved. There is no TIA or CVA symptoms. The patient's atrial fibrillation is now controlled ventricular response. OBJECTIVE: GENERAL: On examination, the patient is well built and well nourished in no acute distress. VITAL SIGNS: She is afebrile with a temperature of 97.6 degrees Fahrenheit. Pulse at 69 beats per minute. Blood pressure is 118/63. Respirations are 18 per minute and O2 sats are 96% on 3 L nasal cannula. HEENT: Head is atraumatic, normocephalic. Eyes: Pupils are equal, round and regular, reactive to light and accommodation. Extraocular movements are normal. There is no conjunctival pallor. There is no scleral icterus. ENT is negative. NECK: Supple. There is no JVD. Carotids are equal. There is no bruit. There is no goiter. There is no lymphadenopathy. Trachea is central. LUNGS: Show diminished air entry, prolonged expiration on auscultation with a few dry crackles in the right lower lobe/right base. There is hyperresonance on percussion. HEART: There is no S3 gallop. There is no S4 gallop. There is a systolic murmur at the left sternal border at the apex. There is no rub. ABDOMEN: Soft, nontender. There is no hepatosplenomegaly. Bowel sounds are well heard. EXTREMITIES: Femorals are slightly diminished. There are no femoral bruits. Leg pulses are diminished. There is no pedal edema. There is no DVT or cellulitis. There is no calf tenderness. CENTRAL NERVOUS SYSTEM: The patient is conscious, awake, alert and oriented x3 with no focal deficits. PSYCHIATRIC: The patient's judgment and insight are intact. Her affect is normal. IMPRESSION: 1. ATRIAL FIBRILLATION WITH NOW CONTROLLED VENTRICULAR RESPONSE. 2. CHEST PAIN. Resolved, seems noncardiac. 3. SHORTNESS OF BREATH. Much improved. 4. SMALL PNEUMONIA, RIGHT LOWER LOBE WITH A SMALL PLEURAL EFFUSION. 5. [id number] RESPIRATORY FAILURE. 6. COPD EXACERBATION. Much improved. 7. SLEEP APNEA SYNDROME. RECOMMENDATIONS: We will recheck the patient's chest x-ray in the a.m., continue antibiotics, continue Eliquis, continue diltiazem 60 mg p.o. q.6 h. We have converted to Cardizem CD 120 mg p.o. q.12 h. Continue steroids. Note 30 minutes spent on this patient, with more than 50% of the time spent on direct patient care. Medications were reviewed and discussed with attending physician on the case. Will follow with you. Note: Decision making is of moderate complexity. Note chest x-ray has been ordered. DICTATING PHYSICIAN: ANIL BA M.D. [id number] [id number] ANGEL#: [id number] ID: [id number] JOB#: [id number] ACCT: [id number] cc: >
[2017-05-15] MEDS: ZOLPIDEM TARTRATE 5 MG TABLET PO SCH (22:58)
[2017-05-16] MEDS: DILTIAZEM HCL 60 MG TABLET PO SCH ×3 (00:28→11:33)
[2017-05-16] MEDS: LANSOPRAZOLE 15 MG TAB.RAP.DR PO SCH ×2 (06:08→17:28)
--- NOTE | 2017-05-16 08:45 | RADIOLOGY REPORT (SQ) ---
EXAM DESCRIPTION: CHEST SINGLE VIEW COMPLETED DATE/TIME: 05/16/2017 8:32 am REASON FOR STUDY: Pneumonia / COPD COMPARISON: 05/12/2017. EXAM PARAMETERS: NUMBER OF VIEWS: One view. TECHNIQUE: Single frontal radiographic view of the chest acquired. RADIATION DOSE: NA LIMITATIONS: None. FINDINGS: LUNGS AND PLEURA: Hyperinflation. Chronic interstitial changes. Interval development of a right pleural effusion. MEDIASTINUM AND HILAR STRUCTURES: No masses. Contour normal. HEART AND VASCULAR STRUCTURES: Mild cardiac enlargement. Normal vasculature. BONES: No acute findings. HARDWARE: None in the chest. OTHER: No other significant finding. IMPRESSION: COPD. MILD CARDIAC ENLARGEMENT. INTERVAL DEVELOPMENT OF A RIGHT PLEURAL EFFUSION. TECHNICAL DOCUMENTATION: JOB ID: [id number] [employer]- All Rights Reserved
[2017-05-16] MEDS: LEVALBUTEROL HCL NEB 1.25 MG/3 ML AMPUL NEB PRN (09:19)
[2017-05-16] MEDS: FERROUS SULFATE 325 MG TABLET PO SCH (10:30)
[2017-05-16] MEDS: APIXABAN 5 MG TABLET PO SCH ×2 (10:30→22:42)
[2017-05-16] MEDS: TIOTROPIUM BROMIDE DPI 5 CAP/KIT (18 MCG/CAP) IH SCH (10:30)
[2017-05-16] MEDS: BUDESONIDE/FORMOTEROL 160-4.5 MCG 60 PUFF/6 GM MDI IH SCH ×2 (10:30→22:42)
[2017-05-16] MEDS: SERTRALINE HCL 50 MG TABLET PO SCH (10:31)
[2017-05-16] MEDS: METOPROLOL TARTRATE 50 MG TABLET PO SCH ×2 (10:31→22:42)
[2017-05-16] MEDS: METHYLPREDNISOLONE INJ 40 MG/1 ML SDV IV SCH ×2 (10:31→22:42)
[2017-05-16] MEDS: FLUTICASONE NASAL SPRAY 50 MCG/SPRY 120 SPRAY/16 GM NASL SCH (10:31)
[2017-05-16] MEDS: FOLIC ACID 1 MG TABLET PO SCH (10:32)
[2017-05-16] MEDS: DIGOXIN 0.125 MG TABLET PO SCH (10:40)
[2017-05-16] MEDS: CEFTRIAXONE 1 GM/D5W RTU 1 GM/50 ML RTUPB IV SCH (10:42)
[2017-05-16] MEDS: GLIPIZIDE XL 2.5 MG TAB.ER.24 PO SCH (10:48)
[2017-05-16] MEDS ORDERED: FUROSEMIDE 40 MG TABLET PO ONE (12:45)
[2017-05-16] MEDS ORDERED: ACETAMINOPHEN 325 MG TABLET PO PRN (17:07)
--- NOTE | 2017-05-16 17:16 | PDOC PROGRESS REPORT ---
Subjective Progress Note for:: 05/16/17 Subjective:: Patient's breathing has not improved today,she is still wheezing and especially with any ambulation. She is still requiring a little bit more than her regular nasal cannula oxygen. She is coughing and today expectorating abad sputum. No hemoptysis. No fevers or chills. She is eating and drinking fairly well. Chest pain that she had on admission is now resolved. No constipation or dysuria. No CAMPOS or vision changes. Reason For Visit: ATRIAL FIBRILLATION, COPD with exacerbation, HFLu pneumonia Physical Exam Vital Signs: Temp Pulse Resp BP Pulse Ox 98.6 F 70 22 H 134/76 H 98 05/16/17 15:23 05/16/17 15:23 05/16/17 15:23 05/16/17 15:23 05/16/17 15:23 Intake & Output 05/15/17 05/16/17 05/17/17 06:59 06:59 06:59 Intake Total 2841 2239 Output Total 600 1400 Balance 2241 839 Weight 62.6 kg 64.5 kg General appearance: PRESENT: no acute distress, cooperative Head exam: PRESENT: atraumatic, normocephalic Eye exam: PRESENT: EOMI. ABSENT: conjunctival injection, scleral icterus Mouth exam: PRESENT: moist Throat exam: ABSENT: post pharyngeal erythema Respiratory exam: PRESENT: prolonged expiratory phas, wheezes. ABSENT: retraction, tachypnea, unlabored Cardiovascular exam: PRESENT: irregular rhythm. ABSENT: tachycardia GI/Abdominal exam: PRESENT: normal bowel sounds, soft. ABSENT: distended, guarding, mass, organolmegaly, rebound, tenderness Musculoskeletal exam: PRESENT: ambulatory Neurological exam: PRESENT: alert, awake, oriented to person, oriented to place , oriented to situation Psychiatric exam: PRESENT: appropriate affect, normal mood. ABSENT: agitated, anxious Skin exam: PRESENT: dry, warm Results Laboratory Results: 05/14/17 04:59 05/14/17 04:59 05/12/17 05/12/17 05/13/17 17:40 22:10 04:08 Creatine Kinase 72 71 72 CK-MB (CK-2) Troponin I 05/13/17 05/13/17 05/13/17 04:08 10:10 10:10 Creatine Kinase 74 CK-MB (CK-2) 1.10 0.84 Troponin I 0.019 0.020 05/13/17 05/13/17 16:23 16:23 Creatine Kinase 82 CK-MB (CK-2) 1.25 Troponin I 0.014 Impressions: Chest X-Ray 05/16/17 06:00 IMPRESSION: COPD. MILD CARDIAC ENLARGEMENT. INTERVAL DEVELOPMENT OF A RIGHT PLEURAL EFFUSION. Assessment & Plan - Diagnosis (1) Pneumonia due to Hemophilus influenzae (H. influenzae) Qualifiers: Laterality: right Lung location: lower lobe of lung Qualified Code(s): J14 - Pneumonia due to Hemophilus influenzae Is this a current diagnosis for this admission?: Yes Plan: Cont ABX as ordered. WIll DC on po ABX to cover HFlu for a total of 10-14 days. (2) COPD exacerbation Is this a current diagnosis for this admission?: Yes Plan: Cont steroids and breathing tx, will convert to po on discharge, cont home COPD meds (3) Atrial fibrillation with RVR Is this a current diagnosis for this admission?: Yes Plan: converted dilt to 240 mg po daily to start tomorrow (4) Chest pain Qualifiers: Chest pain type: unspecified Qualified Code(s): R07.9 - Chest pain, unspecified Is this a current diagnosis for this admission?: Yes Plan: resolved, cardiology following for afib, this was not likley a cardiac CP syndrome (5) Shortness of breath Is this a current diagnosis for this admission?: Yes Plan: improving but not back to baseline, still significantly SOB with any ambulation (6) Acute and chronic respiratory failure with hypoxia Is this a current diagnosis for this admission?: Yes Plan: will be DCed on O2, hopefully back to her baseline by DC, will DC on ABX for PNA , steroid taper for COPD, afib rate control agents - Time Time Spent with patient: 25-34 minutes
[2017-05-16] MEDS: AZITHROMYCIN 250 MG TABLET PO SCH (17:28)
[2017-05-16] MEDS: MONTELUKAST SODIUM 10 MG TABLET PO SCH (17:29)
[2017-05-16] MEDS ORDERED: DILTIAZEM HCL 60 MG TABLET PO SCH (18:00)
[2017-05-16] MEDS: ZOLPIDEM TARTRATE 5 MG TABLET PO SCH (22:43)
--- NOTE | 2017-05-16 23:38 | PROGRESS NOTE E ---
Progress Note NAME: TERE VALERIO : 1960 AGE: 56Y DATE: 05/16/2017 ROOM: 318 SUBJECTIVE: The patient states now she has a little more shortness of breath than yesterday. She says she is coughing up sputum, which is again now grayish in color. She does have orthopnea but PND. There is trace leg edema. There is no chest pain or discomfort. The patient remains in atrial fibrillation with controlled ventricular response. There is no bleeding *------*. There are no TIA or CVA symptoms. OBJECTIVE: On examination, the patient is well built,looks chronically ill. VITAL SIGNS: She is afebrile with a temperature of 98.1 degrees Fahrenheit, pulse 72 beats per minute, blood pressure 144/76, respirations 20 per minute, O2 sats are 100% on 3L nasal cannula. HEAD: Atraumatic, normocephalic. EYES: Pupils are equal, round, regular, and reactive to light and accommodation. Extraocular movements are normal. There is no conjunctival pallor. There is no scleral icterus. ENT: Negative. NECK: Supple. There is no JVD. Carotids are equal. There is no bruit. There is no goiter. There is no lymphadenopathy. Trachea is midline. LUNGS: Diminished air entry, prolonged expiration on auscultation with a few dry crackles in the right lower lobe. There is absent breath sounds in the right base also. There is hyperresonance on percussion. CARDIAC: S1 and S2 are heard. S1 is of variable intensity. There is no S3 gallop. There is no S4 gallop. There is a systolic murmur in the left sternal border and the apex. There is no rub. ABDOMEN: Soft, nontender. There is no hepatosplenomegaly. Bowel sounds are well heard. EXTREMITIES: Femorals are slightly diminished. There are no femoral bruits. Leg pulses are diminished. There is no pedal edema. There is no DVT or cellulitis. There is no calf tenderness. CENTRAL NERVOUS SYSTEM: The patient is conscious, awake, alert, oriented x3, with no focal deficits. PSYCHIATRIC: The patient's judgement and insight are intact. Her affect is normal. IMAGING STUDIES: The patient's chest x-ray shows hyperinfiltration, chronic interstitial changes, interval development of light pleural effusion. There is mild cardiac enlargement but no congestive heart failure. IMPRESSION: 1. Atrial fibrillation with now controlled ventricular response. 2. Chest pain, resolved, seems noncardiac. 3. Shortness of breath. There is some amount of regression since the patient states that the shortness of breath is a little bit more than yesterday. 4. Small lung pneumonia in right lower lobe with a small pleural effusion on the right base. 5. Acute on chronic respiratory failure. 6. COPD exacerbation. Still not back to baseline. 7. Sleep apnea syndrome. 8. Diabetes mellitus type 2, non-insulin dependent. RECOMMENDATION: 1. Continue Eliquis. 2. Continue her respiratory treatments and antibiotics. 3. Continue Cardizem 60 mg p.o. q.6 h. 4. Continue Lasix 40 mg p.o. daily. 5. Continue glipizide. 6. Continue the patient on steroids. TIME SPENT: Note, 30 minutes spent on this patient with more than 50% of the time spent on direct patient care. Her medications have been reviewed. We will follow with you. Decision making is of moderate to high complexity. Note, the medications have been adjusted. We will change the patient to Cardizem CD *------* mg p.o. q.12 h. I discussed this with the Hospitalist taking care of the patient. DICTATING PHYSICIAN: ANIL BA M.D. [id number] DEONDREY#: [id number] ID: [id number] JOB#: [id number] ACCT: [id number] cc: >
[2017-05-17] MEDS: LANSOPRAZOLE 15 MG TAB.RAP.DR PO SCH ×2 (06:20→17:09)
[2017-05-17] MEDS: METOPROLOL TARTRATE 50 MG TABLET PO SCH ×2 (08:33→21:30)
[2017-05-17] MEDS: DILTIAZEM HCL 120 MG CAP.SR.24H PO SCH ×2 (08:34→21:30)
[2017-05-17] MEDS: METHYLPREDNISOLONE INJ 40 MG/1 ML SDV IV SCH (09:08)
[2017-05-17] MEDS: BUDESONIDE/FORMOTEROL 160-4.5 MCG 60 PUFF/6 GM MDI IH SCH ×2 (09:08→21:30)
[2017-05-17] MEDS: FLUTICASONE NASAL SPRAY 50 MCG/SPRY 120 SPRAY/16 GM NASL SCH (09:08)
[2017-05-17] MEDS: SERTRALINE HCL 50 MG TABLET PO SCH (09:09)
[2017-05-17] MEDS: DIGOXIN 0.125 MG TABLET PO SCH (09:10)
[2017-05-17] MEDS: FUROSEMIDE 40 MG TABLET PO SCH (09:10)
[2017-05-17] MEDS: GLIPIZIDE XL 2.5 MG TAB.ER.24 PO SCH (09:11)
[2017-05-17] MEDS: FOLIC ACID 1 MG TABLET PO SCH (09:11)
[2017-05-17] MEDS: FERROUS SULFATE 325 MG TABLET PO SCH (09:11)
[2017-05-17] MEDS: APIXABAN 5 MG TABLET PO SCH ×2 (09:12→21:30)
[2017-05-17] MEDS: LEVALBUTEROL HCL NEB 1.25 MG/3 ML AMPUL NEB PRN ×2 (09:48→21:56)
[2017-05-17] MEDS ORDERED: DILTIAZEM HCL 240 MG CAPSULE.CR PO SCH (10:00)
[2017-05-17] MEDS: CEFTRIAXONE 1 GM/D5W RTU 1 GM/50 ML RTUPB IV SCH (10:44)
[2017-05-17] MEDS: TIOTROPIUM BROMIDE DPI 5 CAP/KIT (18 MCG/CAP) IH SCH (10:44)
--- NOTE | 2017-05-17 16:36 | PDOC PROGRESS REPORT ---
Subjective Progress Note for:: 05/17/17 Subjective:: Patient has had some trouble with heart rate controlled today. She is feeling weak and tired. Her breathing has improved however. Sputum production decreasing. No chest pain or new shortness of breath. No wheezing. Being and drinking well. Urinating without difficulty. No constipation. Reason For Visit: ATRIAL FIBRILLATION Physical Exam Vital Signs: Temp Pulse Resp BP Pulse Ox 98.0 F 100 18 129/83 H 97 05/17/17 11:34 05/17/17 14:00 05/17/17 11:34 05/17/17 11:34 05/17/17 11:34 Intake & Output 05/16/17 05/17/17 05/18/17 06:59 06:59 06:59 Intake Total 2239 1044 Output Total 1400 2700 Balance 839 -1656 Weight 64.5 kg 64 kg General appearance: PRESENT: no acute distress, well-developed, well-nourished Eye exam: PRESENT: conjunctiva pink, EOMI Mouth exam: PRESENT: moist Respiratory exam: PRESENT: prolonged expiratory phas, rhonchi, unlabored. ABSENT: wheezes Cardiovascular exam: PRESENT: irregular rhythm, tachycardia GI/Abdominal exam: PRESENT: normal bowel sounds, soft. ABSENT: distended, guarding, mass, organolmegaly, rebound, tenderness Extremities exam: PRESENT: +1 edema Musculoskeletal exam: PRESENT: normal inspection Neurological exam: PRESENT: alert, altered, awake, oriented to person, oriented to place, oriented to time, oriented to situation, CN II-XII grossly intact Psychiatric exam: PRESENT: appropriate affect, other - A little bit distressed over home situation Skin exam: PRESENT: dry, intact, warm Results Laboratory Results: 05/14/17 04:59 05/14/17 04:59 05/12/17 05/12/17 05/13/17 17:40 22:10 04:08 Creatine Kinase 72 71 72 CK-MB (CK-2) Troponin I 05/13/17 05/13/17 05/13/17 04:08 10:10 10:10 Creatine Kinase 74 CK-MB (CK-2) 1.10 0.84 Troponin I 0.019 0.020 05/13/17 05/13/17 16:23 16:23 Creatine Kinase 82 CK-MB (CK-2) 1.25 Troponin I 0.014 Impressions: Chest X-Ray 05/16/17 06:00 IMPRESSION: COPD. MILD CARDIAC ENLARGEMENT. INTERVAL DEVELOPMENT OF A RIGHT PLEURAL EFFUSION. Assessment & Plan - Diagnosis (1) Pneumonia due to Hemophilus influenzae (H. influenzae) Qualifiers: Laterality: right Lung location: lower lobe of lung Qualified Code(s): J14 - Pneumonia due to Hemophilus influenzae Is this a current diagnosis for this admission?: Yes Plan: Improving clinically. Will discharge on appropriate antibiotic regimen for H flu. (2) COPD exacerbation Is this a current diagnosis for this admission?: Yes Plan: Improving. Likely brought on by the pneumonia. Today I am stopping IV steroids and will hurt her on oral prednisone tomorrow. Continuing home COPD meds. Continue bronchodilators. (3) Atrial fibrillation with RVR Is this a current diagnosis for this admission?: Yes Plan: This problem is being managed in conjunction with Dr. Miramontes. He is on metoprolol 50 mg p.o. twice daily and diltiazem 120 mg p.o. twice daily. Yesterday patient was well rate controlled. Today she has hovered around 100. She is also had some stress which may be contributing. We will continue to monitor and up titrate medications if needed. (4) Chest pain Qualifiers: Chest pain type: unspecified Qualified Code(s): R07.9 - Chest pain, unspecified Is this a current diagnosis for this admission?: Yes Plan: Secondary to pneumonia and COPD exacerbation. Now resolved. (5) Shortness of breath Is this a current diagnosis for this admission?: Yes Plan: Much improved. Multifactorial. See above for treatment plans. (6) Acute and chronic respiratory failure with hypoxia Is this a current diagnosis for this admission?: Yes Plan: Patient is requiring 1 L above her baseline nasal cannula oxygen. She is overall much improved. Will be discharged home with O2, antibiotics, A. fib treatment, COPD treatment. - Time Time Spent with patient: 25-34 minutes
[2017-05-17] MEDS: AZITHROMYCIN 250 MG TABLET PO SCH (17:09)
[2017-05-17] MEDS: MONTELUKAST SODIUM 10 MG TABLET PO SCH (17:09)
[2017-05-17] MEDS ORDERED: DILTIAZEM HCL/D5W 125 MG/125 ML RTUINJ IV ONE (18:18)
[2017-05-17] MEDS ORDERED: DILTIAZEM HCL/D5W 125 MG/125 ML RTUINJ IV PRN (18:57)
[2017-05-17] MEDS: ZOLPIDEM TARTRATE 5 MG TABLET PO SCH (21:33)
--- NOTE | 2017-05-18 00:18 | PROGRESS NOTE E ---
Progress Note NAME: TERE VALERIO : 1960 AGE: 56Y DATE: 05/17/2017 ROOM: 318 SUBJECTIVE: The patient continues to be short of breath and continues to cough. She has orthopnea but no PND. She has trace pedal edema. She continues to be in atrial fibrillation at present. Heart rate seems to be controlled. She has no TIA or CVA symptoms. There is no bleeding on Eliquis. There is no chest pain or discomfort. OBJECTIVE: GENERAL: On examination, the patient is afraid of , and appears to be chronically ill. VITAL SIGNS: She is afebrile with a temperature of 98 degrees Fahrenheit, pulse runs 88, 96, to 105, blood pressure is 129/80, respirations 18 per minute, O2 sats are 97% on 3L nasal cannula. HEAD: Atraumatic, normocephalic. EYES: Pupils are equal, round, regular, and reactive to light and accommodation. Extraocular movements are normal. There is no conjunctival pallor. There is no scleral icterus. ENT: Negative. NECK: Supple. There is no JVD. Carotids are equal. There is no bruit. There is no goiter. There is no lymphadenopathy. Trachea is midline. LUNGS: Diminished air entry, prolonged expiration on auscultation with an area of dullness at the right lower lobe. There are no rales or wheezing. There are absent breath sounds in the right base where there is dullness also. The rest of the lungs show hyperresonance on palpation. CARDIAC: S1 and S2 are heard. S1 is of variable intensity. There is no S3 gallop. There is no S4 gallop. There is a systolic murmur in the left sternal border and the apex. There is no rub. ABDOMEN: Soft, nontender. There is no hepatosplenomegaly. Bowel sounds are well heard. EXTREMITIES: Femorals are slightly diminished. There are no femoral bruits. Leg pulses are diminished. There is no pedal edema. There is no DVT or cellulitis. There is no calf tenderness. CENTRAL NERVOUS SYSTEM: The patient is conscious, awake, alert, oriented x3, with no focal deficits. PSYCHIATRIC: The patient's judgement and insight are intact. His affect is normal. IMAGING STUDIES: A chest x-ray shows a right lower lobe pleural effusion. IMPRESSION: 1. Atrial fibrillation with fairly well controlled ventricular response with spikes of increased heart rate. We will watch. The patient is on Cardizem. If the patient's heart rate continues to go up, we will restart the patient on IV Cardizem. 2. Chest pain, resolved. It seems noncardiac. 3. Shortness of breath. This has slightly worsened compared to yesterday secondary to a COPD exacerbation and pneumonia. 4. Small pneumonia of the right lower lobe with a small pleural effusion. 5. Acute on chronic chest pressure. 6. Acute on chronic respiratory failure. 7. COPD exacerbation. Still not back to baseline. 8. Sleep apnea syndrome. 9. Diabetes mellitus type 2. RECOMMENDATION: 1. Continue the patient on Eliquis. 2. Continue the patient on antibiotics. 3. Continue respiratory treatments. 4. Continue digoxin 0.125 mg. We will check a dig level in the a.m. 5. Continue her Flonase. 6. Continue her Lasix 40 mg p.o. daily. 7. Continue her Glucotrol. 8. Continue ceftriaxone and Zithromax. 9. Continue metoprolol 50 mg p.o. q.12 h. Would recommend that if the patient continues to have increased heart rate, would stop the patient's metoprolol and increase the patient's Cardizem CD to 180 mg p.o. q.12 h. If the patient's heart rate continues to increase, then we will start the patient on IV Cardizem until the heart rate is controlled. We will check her dig levels in the a.m. TIME SPENT: Note that 30 minutes was spent on this patient with more than 50% of the time spent on direct patient care. Her medications have been reviewed. I discussed with the Hospitalist taking care of the patient. Note, this case needed higher complex medical decision making. DICTATING PHYSICIAN: ANIL BA M.D. [id number] PHSang#: [id number] ID: [id number] JOB#: [id number] ACCT: [id number] cc: >
[2017-05-18 05:49] LABS: ANION GAP 9 (5-19); BLOOD UREA NITROGEN 23 mg/dL (7-20); CALCIUM 8.6 mg/dL (8.4-10.2); CARBON DIOXIDE 37 mmol/L (22-30); CHLORIDE 97 mmol/L (98-107); GLUCOSE 178 mg/dL (75-110); POTASSIUM 4.2 mmol/L (3.6-5.0); SODIUM 143.4 mmol/L (137-145)
[2017-05-18] MEDS: LANSOPRAZOLE 15 MG TAB.RAP.DR PO SCH (06:00)
[2017-05-18] MEDS ORDERED: PREDNISONE 20 MG TABLET PO SCH (10:00)
[2017-05-18] MEDS: METOPROLOL TARTRATE 50 MG TABLET PO SCH (10:39)
[2017-05-18] MEDS: FLUTICASONE NASAL SPRAY 50 MCG/SPRY 120 SPRAY/16 GM NASL SCH (10:39)
[2017-05-18] MEDS: BUDESONIDE/FORMOTEROL 160-4.5 MCG 60 PUFF/6 GM MDI IH SCH (10:39)
[2017-05-18] MEDS: APIXABAN 5 MG TABLET PO SCH (10:40)
[2017-05-18] MEDS: FERROUS SULFATE 325 MG TABLET PO SCH (10:41)
[2017-05-18] MEDS: SERTRALINE HCL 50 MG TABLET PO SCH (10:41)
[2017-05-18] MEDS: FOLIC ACID 1 MG TABLET PO SCH (10:41)
[2017-05-18] MEDS: DILTIAZEM HCL 120 MG CAP.SR.24H PO SCH (10:41)
[2017-05-18] MEDS: FUROSEMIDE 40 MG TABLET PO SCH (10:42)
[2017-05-18] MEDS: DIGOXIN 0.125 MG TABLET PO SCH (10:42)
[2017-05-18] MEDS: TIOTROPIUM BROMIDE DPI 5 CAP/KIT (18 MCG/CAP) IH SCH (10:43)
[2017-05-18] MEDS: GLIPIZIDE XL 2.5 MG TAB.ER.24 PO SCH (10:43)
[2017-05-18] MEDS: CEFTRIAXONE 1 GM/D5W RTU 1 GM/50 ML RTUPB IV SCH (10:47)
[2017-05-18] MEDS: LEVALBUTEROL HCL NEB 1.25 MG/3 ML AMPUL NEB PRN (11:04)
[2017-05-18 13:23] VITALS: BP 112/62
--- NOTE | 2017-05-18 23:38 | PROGRESS NOTE E ---
Progress Note NAME: TERE VALERIO : 1960 AGE: 56Y DATE: 05/18/2017 ROOM: 318 SUBJECTIVE: The patient states her shortness of breath is back to baseline. She has no further cough. She does have chronic orthopnea but no PND. She continues to be in atrial fibrillation with controlled ventricular response. There is no chest pain or discomfort. There is no ventricular arrhythmia seen. There is no pedal edema. There is no bleeding on Eliquis. There are no TIA or CVA symptoms. The patient desires of going home. OBJECTIVE: On examination, the patient is of frail build and appears to be chronically ill. She is afebrile with a temperature of 98.6 degrees Fahrenheit. Pulse is 65 beats per minute. Blood pressure is 112/62. Respirations are 14 per minute. O2 sats are 97% on 3 liters nasal cannula. Head is atraumatic, normocephalic. Eyes: Pupils are equal, round regular, reactive to light and accommodation. Extraocular movements are normal. There is no conjunctival pallor. There is no scleral icterus. ENT is negative. Neck is supple. There is no JVD. Carotids are equal. There are no bruits. There is no lymphadenopathy. Trachea is midline. Lungs have diminished air entry and prolonged expiration on auscultation. On percussion there is hyperresonance. There are no rhonchi, rales, or wheezing. The pleural effusion *------* seems to have resolved. S1/S2 heard. S1 is of variable intensity. There is no S3 gallop. There is no S4 gallop. There is a systolic murmur at the left sternal border and the apex. There is no rub. The abdomen is soft, nontender. There is no hepatosplenomegaly. Pulses are well felt. Extremities: Femorals are slightly diminished. There are no femoral bruits. Leg pulses are diminished. There is no pedal edema. There is no DVT or cellulitis. There is no calf tenderness. FINANCIAL ECONOMIST: The patient is conscious, awake, alert, oriented x3, with no focal deficit. Psychiatric: The patient's judgement and insight are intact. Her affect is normal. LABORATORY DATA: The patient's sodium is 143.4, potassium 4.2, chloride is 97, CO2 is 37; the patient's BUN is 23, creatinine is 0.64, GFR is greater than 60, glucose is 178, calcium is 8.6. ASSESSMENT: 1. Atrial fibrillation with rate-controlled ventricular response. No further surges in the heart rate. The patient off IV Cardizem and is on p.o. Cardizem. 2. Chest pain, resolved, noncardiac. 3. Shortness of breath. The patient is now at her baseline. 4. Small pneumonia of her right lower lobe and small pleural effusion, resolved *------*. 5. Patient with chronic respiratory failure, back to baseline now. 6. COPD exacerbation that has resolved. Patient back to baseline COPD. 7. Sleep apnea syndrome. 8. Diabetes mellitus type 2. RECOMMENDATION: 1. Continue the patient on Eliquis. 2. Continue antibiotics. 3. Continue digoxin. Note that the patient's digoxin level was not done today, in spite of me ordering it. 4. Continue respiratory treatments as outpatient. 5. Continue Flonase. 6. Continue Lasix 40 mg p.o. daily. 7. Continue Glucotrol. 8. Continue metoprolol 50 mg p.o. q. 12 hours, and continue patient on Cardizem CD 120 mg p.o. q. 12 hours. 9. The patient will follow up with me in the office. The patient is being discharged. Note, 35 minutes were spent on this patient with more than 50% of the time spent on direct patient care. I have discussed the patient's case with the hospitalist. Her medications have been reviewed. The patient has my cell phone number to call me if she has any problems. Will have the patient see me in the office as an outpatient. Medical decision making is of moderate complexity at present. Since the patient, in spite of the significant COPD, is back to baseline, will recheck an echo as an outpatient in 2 weeks to make sure that the pleural effusion has completely resolved. Note that the patient is full code. She states her sister is her surrogate healthcare decision maker. DICTATING PHYSICIAN: ANIL BA M.D. [id number] PHY#: [id number] ID: [id number] JOB#: [id number] ACCT: [id number] cc: >
== END 2017-05-18 17:20 | disposition home or self-care (01) | DRG 308 ==
LOC: ER 10:14 → EH 13:38 → 3W 15:11
PROVIDERS: ADMIT Internal Medicine; ATTEND Internal Medicine
DX: I48.91 Unspecified atrial fibrillation (principal); J14 Pneumonia due to Hemophilus influenzae; J44.0 Chronic obstructive pulmonary disease with (acute) lower respiratory infection; J96.11 Chronic respiratory failure with hypoxia; J44.1 Chronic obstructive pulmonary disease with (acute) exacerbation; I48.92 Unspecified atrial flutter; R07.89 Other chest pain; I11.0 Hypertensive heart disease with heart failure; I50.9 Heart failure, unspecified; I25.10 Atherosclerotic heart disease of native coronary artery without angina pectoris; E11.9 Type 2 diabetes mellitus without complications; D64.9 Anemia, unspecified; M19.90 Unspecified osteoarthritis, unspecified site; G47.30 Sleep apnea, unspecified; Z79.899 Other long term (current) drug therapy; Z79.02 Long term (current) use of antithrombotics/antiplatelets; I25.2 Old myocardial infarction; Z88.1 Allergy status to other antibiotic agents; Z87.891 Personal history of nicotine dependence
CPT/HCPCS: 36415; 71010; 80048; 80053; 80162; 80307; 81001; 82550; 82553; 82803; 82962; 83605; 83735; 84439; 84443; 84481; 84484; 85025; 87040; 87070; 87077; 87205; 93005; 93010; 94640; 96361; 96365; 96376; 99291; J0696; J2920; J3490; J7030; J7512

== ENCOUNTER → 2017-06-05 | Outpatient (CLI) | payer MEDICARE, MEDICAID ==
--- NOTE | 2017-06-05 13:40 | RADIOLOGY REPORT (SQ) ---
EXAM DESCRIPTION: CHEST PA/LAT COMPLETED DATE/TIME: 06/05/2017 12:04 pm REASON FOR STUDY: R06.02 SHORTNESS OF BREATH COMPARISON: Chest films 05/16/2017, 05/12/2017 CT angio chest 01/11/2017 EXAM PARAMETERS: NUMBER OF VIEWS: two views TECHNIQUE: Digital Frontal and Lateral radiographic views of the chest acquired. RADIATION DOSE: NA LIMITATIONS: none FINDINGS: LUNGS AND PLEURA: Obstructive lung disease, with enlarged airspaces in the upper lobes martínez aterally and right lower lobe. This is most pronounced in the right lung apex. No focal infiltrates. No pleural effusion. No pneumothorax. MEDIASTINUM AND HILAR STRUCTURES: No masses or contour abnormalities. HEART AND VASCULAR STRUCTURES: Borderline cardiomegaly. No evidence for failure. BONES: Osteopenic. No acute fracture HARDWARE: None in the chest. OTHER: No other significant finding. IMPRESSION: Obstructive lung disease. No acute infiltrates or pleural effusions. No pneumothorax. TECHNICAL DOCUMENTATION: JOB ID: [id number] [employer]- All Rights Reserved
== END ==
LOC: RAD 11:46
PROVIDERS: ATTEND Internal Medicine Cardiovascular Disease
DX: R06.02 Shortness of breath (principal)
CPT/HCPCS: 71020

== ENCOUNTER 2017-06-07 14:23 | Inpatient (IN) | payer MEDICARE, MEDICAID ==
[2017-06-07] MEDS ORDERED: ALBUTEROL SULFATE 0.083% NEB 2.5 MG/3 ML AMPUL NEB ONE ×2 (14:28→14:31)
[2017-06-07] MEDS ORDERED: IPRATROPIUM/ALBUTEROL 0.5-2.5 MG/3 ML AMPUL NEB ONE ×2 (14:28→14:31)
--- NOTE | 2017-06-07 14:37 | ER Document Report ---
ED Respiratory Problem - General Chief Complaint: Shortness Of Breath Stated Complaint: DIFFICULTY BREATHING Time Seen by Provider: 06/07/17 14:28 Notes: The patient is a 56-year-old, past medical history COPD (on home 2 L O2), CHF, A. fib, presents with 1 day of worsening shortness of breath. When EMS arrived , she was satting 70% on her home oxygen. She was given 2 duonebs, 125 mg Solu- Medrol, 2 g magnesium and placed on CPAP with improvement of her respiratory status. Patient said she also has mild swelling of her ankles. Patient denies chest pain, nausea, vomiting, cough, fevers, headache, rash, back pain or calf tenderness. TRAVEL OUTSIDE OF THE [place] IN LAST 30 DAYS: No - Related Data Allergies/Adverse Reactions: erythromycin base [Erythromycin Base] Allergy (Mild, Verified 04/29/17 15:15) Past Medical History - General Information source: Patient - Social History Smoking Status: Unknown if Ever Smoked Family History: Reviewed & Not Pertinent, CAD, COPD, Hypertension - Past Medical History Cardiac Medical History: Reports: Hx Atrial Fibrillation, Hx Congestive Heart Failure, Hx Heart Attack, Hx Hypertension Pulmonary Medical History: Reports: Hx COPD, Hx Pneumonia Endocrine Medical History: Reports: 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 Renal/ Medical History: Denies: Hx Peritoneal Dialysis Musculoskeltal Medical History: Reports Hx Arthritis Psychiatric Medical History: Denies: Hx Depression Past Surgical History: Reports: Hx Cardiac Catheterization, Hx Section - Immunizations Immunizations up to date: Yes Hx Diphtheria, Pertussis, Tetanus Vaccination: Yes Hx Pneumococcal Vaccination: 05/18/12 Review of Systems - Review of Systems Notes: REVIEW OF SYSTEMS: CONSTITUTIONAL: -fevers, -chills EENT: -eye pain, -difficulty swallowing, -nasal congestion CARDIOVASCULAR:-chest pain, -syncope. RESPIRATORY: -cough, +SOB GASTROINTESTINAL: -abdominal pain, - nausea, -vomiting, -diarrhea GENITOURINARY: -dysuria, -hematuria MUSCULOSKELETAL: -back pain, -neck pain SKIN: -rash or skin lesions. HEMATOLOGIC: -easy bruising or bleeding. LYMPHATIC: -swollen, enlarged glands. NEUROLOGICAL: -altered mental status or loss of consciousness, -headache, - neurologic symptoms PSYCHIATRIC: -anxiety, -depression. ALL OTHER SYSTEMS REVIEWED AND NEGATIVE. Physical Exam - Vital signs Vitals: Resp 23 H 06/07/17 14:28 - Notes Notes: PHYSICAL EXAMINATION: GENERAL: Moderate respiratory distress, on BiPap HEAD: Atraumatic, normocephalic. EYES: Pupils equal round and reactive to light, extraocular movements intact, sclera anicteric, conjunctiva are normal. ENT: nares patent, oropharynx clear without exudates. Moist mucous membranes. NECK: Normal range of motion, supple without lymphadenopathy LUNGS: Decreased lung sounds. Diffuse wheezing. HEART:Regular rhythm. Tachycardic. ABDOMEN: Soft, nontender, normoactive bowel sounds. No guarding, no rebound. No masses appreciated. EXTREMITIES: 1+ pitting edema around ankles. No calf tenderness. NEUROLOGICAL: Cranial nerves grossly intact. Normal speech, normal gait. Normal sensory and motor exams. PSYCH: Normal mood, normal affect. SKIN: Warm, Dry, normal turgor, no rashes or lesions noted. Course - Re-evaluation Re-evalutation: Patient seen immediately on arrival and transitioned from CPAP to BiPAP. She was tachypneic with tripoding and diffuse wheezing. Patient already received Solu-Medrol, magnesium and 2 duonebs by EMS with some relief of her shortness of breath. Chest x-ray does not show any acute changes and CTA ordered due to the hypoxia and tachycardia. CTA did not show any pulmonary embolisms, but did show extensive emphysematous changes. Her VBG shows an acute hypercapnic respiratory acidosis. EKG showed sinus tachycardia without evidence of a STEMI and patient has not had any chest pain. Pt's initial tachycardia improved, but she remains slightly tachycardic, most likely from the beta agonists she received. Patient requires inpatient admission for further evaluation and treatment of her acute COPD exacerbation. 06/07/17 17:[address] Hathaway and will admit patient to [facility]. - Vital Signs Vital signs: Temp Pulse Resp BP Pulse Ox 20 109/67 100 06/07/17 17:04 06/07/17 17:04 06/07/17 17:04 - Laboratory Result Diagrams: 06/07/17 14:40 06/07/17 14:40 Laboratory results interpreted by me: 06/07/17 06/07/17 06/07/17 14:40 14:40 14:40 Hgb 11.9 L MCH 25.7 L MCHC 31.9 L RDW 18.5 H PT 15.7 H VBG pH VBG pCO2 VBG HCO3 Sodium 145.8 H Carbon Dioxide 34 H Creatine Kinase 201 H Digoxin 0.70 L 06/07/17 15:42 Hgb MCH MCHC RDW PT VBG pH 7.25 L VBG pCO2 83.2 H* VBG HCO3 35.7 H Sodium Carbon Dioxide Creatine Kinase Digoxin - Diagnostic Test Radiology reviewed: Image reviewed, Reports reviewed Radiology results interpreted by me: CTA Chest: No PE. Extensive pulmonary emphysema. CXR: NAD. Chronic changes. - EKG Interpretation by Me EKG shows normal: Sinus rhythm, QRS Complexes, ST-T Waves Rate: Tachycardia Cantril/QRS: Right axis deviation When compared to previous EKG there are: No significant change Additional EKG results interpreted by me: No STEMI. Prolonged QTc. Critical Care Note - Critical Care Note Total time excluding time spent on procedures (mins): 45 Discharge - Discharge Clinical Impression: COPD with exacerbation Condition: Serious Disposition: ADMITTED INPATIENT Admitting Provider: Hospitalist - [facility] Admitted: [facility] Referrals: PAMELA HARRISON MD [Primary Care Provider] - Follow up as needed
[2017-06-07 14:55] LABS: ABSOLUTE LYMPHOCYTES (AUTO) 1.3 10^3/uL (0.5-4.7); ABSOLUTE MONOCYTES (AUTO) 0.4 10^3/uL (0.1-1.4); ABSOLUTE NEUT (AUTO) 3.1 10^3/uL (1.7-8.2); BASOPHILS % (AUTO) 0.2 % (0-2); HEMATOCRIT 37.3 % (36.0-47.0); HEMOGLOBIN 11.9 g/dL (12.0-15.5); LYMPHOCYTES % (AUTO) 26.9 % (13-45); MEAN CORPUSCULAR HEMOGLOBIN 25.7 pg (27.0-33.4); MEAN CORPUSCULAR HGB CONC 31.9 g/dL (32.0-36.0); MEAN CORPUSCULAR VOLUME 81 fl (80-97); PLATELET COUNT 218 10^3/uL (150-450); RED BLOOD COUNT 4.62 10^6/uL (3.72-5.28); RED CELL DISTRIBUTION WIDTH 18.5 % (11.5-14.0); SEGMENTED NEUTROPHILS % (AUTO) 63.9 % (42-78); TOTAL CELLS COUNTED % (AUTO) 100 %; WHITE BLOOD COUNT 4.9 10^3/uL (4.0-10.5)
[2017-06-07 15:06] LABS: INTERNATIONAL RATION (INR) 1.17; PROTHROMBIN TIME 15.7 SEC (11.4-15.4)
[2017-06-07 15:13] LABS: PARTIAL THROMBOPLASTIN TIME 31.7 SEC (23.5-35.8)
[2017-06-07 15:15] LABS: ALANINE AMINOTRANSFERASE 39 U/L (9-52); ALBUMIN 3.8 g/dL (3.5-5.0); ALKALINE PHOSPHATASE 84 U/L (38-126); ANION GAP 11 (5-19); ASPARTATE AMINO TRANSFERASE 36 U/L (14-36); BILIRUBIN,DIRECT 0.3 mg/dL (0.0-0.4); BILIRUBIN,TOTAL 0.5 mg/dL (0.2-1.3); BLOOD UREA NITROGEN 10 mg/dL (7-20); CALCIUM 9.1 mg/dL (8.4-10.2); CARBON DIOXIDE 34 mmol/L (22-30); CHLORIDE 101 mmol/L (98-107); CREATINE KINASE 201 U/L (30-135); GLUCOSE 91 mg/dL (75-110); LIPASE 49.6 U/L (23-300); SODIUM 145.8 mmol/L (137-145); TOTAL PROTEIN 6.6 g/dL (6.3-8.2)
[2017-06-07 15:24] LABS: TROPONIN I 0.023 ng/mL
--- NOTE | 2017-06-07 15:32 | RADIOLOGY REPORT (SQ) ---
EXAM DESCRIPTION: CHEST SINGLE VIEW COMPLETED DATE/TIME: 06/07/2017 3:09 pm REASON FOR STUDY: SOB COMPARISON: 06/05/2017 EXAM PARAMETERS: NUMBER OF VIEWS: One view. TECHNIQUE: Single frontal radiographic view of the chest acquired. RADIATION DOSE: NA LIMITATIONS: None. FINDINGS: LUNGS AND PLEURA: The lungs are hyperexpanded. Mild chronic interstitial changes are pres ent. There is no infiltrate or effusion. There is no mass. MEDIASTINUM AND HILAR STRUCTURES: No masses. Contour normal. HEART AND VASCULAR STRUCTURES: Heart normal in size. Normal vasculature. BONES: No acute findings. HARDWARE: None in the chest. OTHER: No other significant finding. IMPRESSION: Chronic lung changes with no acute cardiopulmonary disease. TECHNICAL DOCUMENTATION: JOB ID: [id number] [employer]- All Rights Reserved
[2017-06-07 15:58] LABS: VENOUS BLOOD BASE EXCESS 5.9 mmol/L; VENOUS BLOOD HCO3 35.7 mmol/L (20-32); VENOUS BLOOD PH 7.25 (7.30-7.42)
[2017-06-07 15:59] LABS: VENOUS BLOOD PCO2 83.2 mmHg (35-63)
--- NOTE | 2017-06-07 17:43 | RADIOLOGY REPORT (SQ) ---
EXAM DESCRIPTION: CTA CHEST COMPLETED DATE/TIME: 06/07/2017 4:58 pm REASON FOR STUDY: SOB, tachycardia, hypoxia COMPARISON: 01/11/2017 TECHNIQUE: CT scan of the chest performed using helical scanning technique with dynamic intravenous contrast injection. Images reviewed with lung, soft tissue and bone windows. Reconstructed coronal and sagittal MPR images reviewed. Additional 3 dimensional post-processing performed to develop Maximal Intensity Projection images (HI P). All images stored on PACS. All CT scanners at this facility use dose modulation, iterative reconstruction, and/or weight based d osing when appropriate to reduce radiation dose to as low as reasonably achievable (ALARA). [facility]: Dose Right [facility]: CareDose [facility]: Dose Right [facility]: Teradose 4D [facility]: OPPRTUNITY CONTRAST TYPE AND DOSE: contrast/concentration: Isovue 370.00 mg/ml; Total Contrast Delivered: 65.0 ml; Total Saline Delivered: 50.0 ml Contrast bolus optimized for the pulmonary arteries. Not diagnostic for the aorta. RENAL FUNCTION: Creatinine 0.64 BUN 10 RADIATION DOSE: CT Rad equipment meets quality standard of care and radiation dose reduction techniq ues were employed. CTDIvol: 13.2 - 14.3 mGy. DLP: 562 mGy-cm. . LIMITATIONS: None. FINDINGS: LUNGS AND PLEURA: Extensive pulmonary emphysema is present. Pleural/parenchymal scarring is present the left upper lobe medially. AORTA AND GREAT VESSELS: No aneurysm. No dissection. HEART: No pericardial effusion. PULMONARY ARTERIES: No emboli visualized in the main pulmonary arteries or the segmental branches. HILAR AND MEDIASTINAL STRUCTURES: No identified masses or abnormal nodes. HARDWARE: None in the chest. UPPER ABDOMEN: No significant findings. Limited exam. THYROID AND OTHER SOFT TISSUES: No masses. No adenopathy. BONES: No acute or significant finding. 3D MIPS: Confirm above findings. OTHER: No other significant finding. IMPRESSION: There is no evidence of pulmonary emboli. There is extensive pulmonary emphysema. COMMENT: Quality ID # [id number]: Final reports with documentation of one or more dose reduction techniques (e.g., Automated exposure control, adjustment of the mA and/or kV according to patient size, use of iterative reconstruction technique) TECHNICAL DOCUMENTATION: JOB ID: [id number] Extensive pulmonary emphysematous 2010 [employer]- All Rights Reserved
--- NOTE | 2017-06-07 17:58 | EKG REPORT ---
SEVERITY:- ABNORMAL ECG - ATRIAL FLUTTER CONSIDER RIGHT VENTRICULAR HYPERTROPHY : Confirmed by: Ian Gutierrez MD 07-Jun-2017 17:57:57
[2017-06-07] MEDS ORDERED: ACETAMINOPHEN 325 MG TABLET PO PRN (18:05)
[2017-06-07] MEDS ORDERED: ONDANSETRON HCL INJ/PF 4 MG/2 ML SDV IV PRN (18:05)
[2017-06-07] MEDS ORDERED: RINGERS SOLUTION,LACTATED 1,000 ML IV PRN (18:05)
[2017-06-07] MEDS ORDERED: OXYCODONE-ACETAMINOPHEN 5-325 MG TABLET PO PRN (18:05)
--- NOTE | 2017-06-07 18:22 | PDOC H&P ---
History of Present Illness Admission Date/PCP: PAMELA HARRISON MD Patient complains of: Shortness of breath History of Present Illness: ANGELINA VALERIO is a 56 year old female with complaint of shortness of breath. Pt states that she was recently discharged and did well for the first week. Pt states by the second week she became more short of breath. Pt states that she noted that was was wheezing. Pt states that she did have one episode of diarrhea and felt nauseated. Pt states that he has not had chest pain nor fever. 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 Musculoskeltal Medical History: Reports: Arthritis Psychiatric Medical History: Denies: Depression Hematology: Reports: Anemia Past Surgical History Past Surgical History: Reports: Cardiac Catheterization, Section Social History Smoking Status: Unknown if Ever Smoked Frequency of Alcohol Use: None Hx Recreational Drug Use: No Drugs: None Hx Prescription Drug Abuse: No - Advance Directive Resuscitation Status: Full Code Family History Family History: Reviewed & Not Pertinent, CAD, COPD, Hypertension Parental Family History Reviewed: Yes Children Family History Reviewed: Yes Sibling(s) Family History Reviewed.: Yes Medication/Allergy Allergies/Adverse Reactions: erythromycin base [Erythromycin Base] Allergy (Mild, Verified 04/29/17 15:15) Review of Systems Constitutional: PRESENT: fatigue, weakness Eyes: ABSENT: visual disturbances Ears: ABSENT: hearing changes Cardiovascular: ABSENT: chest pain, dyspnea on exertion, edema, orthropnea, palpitations Respiratory: PRESENT: cough, dyspnea Gastrointestinal: ABSENT: abdominal pain, constipation, diarrhea, hematemesis, hematochezia, nausea, vomiting Genitourinary: ABSENT: dysuria, hematuria Musculoskeletal: ABSENT: joint swelling Integumentary: ABSENT: rash, wounds Neurological: ABSENT: abnormal gait, abnormal speech, confusion, dizziness, focal weakness, syncope Psychiatric: ABSENT: anxiety, depression, homidical ideation, suicidal ideation Endocrine: ABSENT: cold intolerance, heat intolerance, polydipsia, polyuria Hematologic/Lymphatic: ABSENT: easy bleeding, easy bruising Physical Exam Vital Signs: Temp Pulse Resp BP Pulse Ox 20 109/67 100 06/07/17 17:04 06/07/17 17:04 06/07/17 17:04 General appearance: PRESENT: mild distress, well-developed, well-nourished Head exam: PRESENT: atraumatic, normocephalic Eye exam: PRESENT: conjunctiva pink, EOMI. ABSENT: scleral icterus Ear exam: PRESENT: normal external ear exam Mouth exam: PRESENT: moist, tongue midline Neck exam: ABSENT: carotid bruit, JVD, lymphadenopathy, thyromegaly Respiratory exam: PRESENT: decreased breath sounds, prolonged expiratory phas, retraction, unlabored, wheezes. ABSENT: rales, rhonchi Cardiovascular exam: PRESENT: RRR. ABSENT: diastolic murmur, rubs, systolic murmur Pulses: PRESENT: normal dorsalis pedis pul GI/Abdominal exam: PRESENT: normal bowel sounds, soft. ABSENT: distended, guarding, mass, organolmegaly, rebound, tenderness Rectal exam: PRESENT: deferred Extremities exam: PRESENT: full ROM. ABSENT: calf tenderness, clubbing, pedal edema Neurological exam: PRESENT: alert, awake, oriented to person, oriented to place , oriented to time, oriented to situation, CN II-XII grossly intact. ABSENT: motor sensory deficit Psychiatric exam: PRESENT: appropriate affect, normal mood. ABSENT: homicidal ideation, suicidal ideation Skin exam: PRESENT: dry, intact, warm. ABSENT: cyanosis, rash Results Laboratory Results: 06/07/17 14:40 06/07/17 14:40 06/07/17 06/07/17 06/07/17 14:40 14:40 15:42 WBC 4.9 RBC 4.62 Hgb 11.9 L Hct 37.3 MCV 81 MCH 25.7 L MCHC 31.9 L RDW 18.5 H Plt Count 218 Seg Neutrophils % 63.9 Lymphocytes % 26.9 Monocytes % 9.0 Eosinophils % 0.0 Basophils % 0.2 Absolute Neutrophils 3.1 Absolute Lymphocytes 1.3 Absolute Monocytes 0.4 Absolute Eosinophils 0.0 Absolute Basophils 0.0 VBG pH VBG pCO2 VBG HCO3 VBG Base Excess Sodium 145.8 H Potassium 4.0 Chloride 101 Carbon Dioxide 34 H Anion Gap 11 BUN 10 Creatinine 0.64 Est GFR ( Amer) > 60 Est GFR (Non-Af Amer) > 60 Glucose 91 Lactic Acid 1.5 Calcium 9.1 Total Bilirubin 0.5 AST 36 ALT 39 Alkaline Phosphatase 84 Total Protein 6.6 Albumin 3.8 Lipase 49.6 06/07/17 15:42 WBC RBC Hgb Hct MCV MCH MCHC RDW Plt Count Seg Neutrophils % Lymphocytes % Monocytes % Eosinophils % Basophils % Absolute Neutrophils Absolute Lymphocytes Absolute Monocytes Absolute Eosinophils Absolute Basophils VBG pH 7.25 L VBG pCO2 83.2 H* VBG HCO3 35.7 H VBG Base Excess 5.9 Sodium Potassium Chloride Carbon Dioxide Anion Gap BUN Creatinine Est GFR ( Amer) Est GFR (Non-Af Amer) Glucose Lactic Acid Calcium Total Bilirubin AST ALT Alkaline Phosphatase Total Protein Albumin Lipase 06/07/17 06/07/17 14:40 14:40 Creatine Kinase 201 H Troponin I 0.023 NT-Pro-B Natriuret Pep 221 Impressions: Chest X-Ray 06/07/17 14:29 IMPRESSION: Chronic lung changes with no acute cardiopulmonary disease. Chest/Abdomen CTA 06/07/17 15:17 IMPRESSION: There is no evidence of pulmonary emboli. There is extensive pulmonary emphysema. Assessment & Plan - Diagnosis (1) Acute on chronic respiratory failure with hypoxia and hypercapnia Is this a current diagnosis for this admission?: Yes Plan: Will place on Steroid, breathing, and antibiotics. Will continue BIPAP. Will check ABG. (2) Acute bronchitis with COPD Is this a current diagnosis for this admission?: Yes Plan: Will place on Levaquin, steroids, and breathing. Will continue BIPAP and check ABG. (3) Atrial fibrillation Qualifiers: Atrial fibrillation type: chronic Qualified Code(s): I48.2 - Chronic atrial fibrillation Is this a current diagnosis for this admission?: Yes Plan: Will continue home medications. (4) Hypernatremia Is this a current diagnosis for this admission?: Yes Plan: Will place on IVFs. Will check BMP in am. (5) DVT prophylaxis Is this a current diagnosis for this admission?: Yes Plan: SCDs - Time Time Spent: 30 to 50 Minutes Anticipated discharge: Home
[2017-06-07] MEDS ORDERED: METHYLPREDNISOLONE INJ 40 MG/1 ML SDV IV SCH (22:00)
[2017-06-07] MEDS: METHYLPREDNISOLONE INJ 125 MG/2 ML SDV IV SCH (22:10)
[2017-06-08] MEDS: IPRATROPIUM/ALBUTEROL 0.5-2.5 MG/3 ML AMPUL NEB SCH ×6 (00:05→21:04)
[2017-06-08 01:16] LABS: ARTERIAL BLOOD BASE EXCESS 5.9 mmol/L; ARTERIAL BLOOD H2CO3 1.98 mmol/L (1.05-1.35); ARTERIAL BLOOD HCO3 33.7 mmol/L (20-26); ARTERIAL BLOOD O2 SATURATION 99.1 % (94-98); ARTERIAL BLOOD PCO2 65.9 mmHg (35-45); ARTERIAL BLOOD PH 7.33 (7.35-7.45); ARTERIAL BLOOD TOTAL CO2 35.8 mmol/L (21-25)
[2017-06-08] MEDS: LANSOPRAZOLE 30 MG TAB.RAP.DR PO SCH (05:30)
[2017-06-08] MEDS: METHYLPREDNISOLONE INJ 125 MG/2 ML SDV IV SCH ×3 (05:30→21:59)
[2017-06-08 07:25] LABS: ALANINE AMINOTRANSFERASE 35 U/L (9-52); ALBUMIN 3.2 g/dL (3.5-5.0); ALKALINE PHOSPHATASE 65 U/L (38-126); ANION GAP 6 (5-19); ASPARTATE AMINO TRANSFERASE 28 U/L (14-36); BILIRUBIN,DIRECT 0.2 mg/dL (0.0-0.4); BILIRUBIN,TOTAL 0.3 mg/dL (0.2-1.3); BLOOD UREA NITROGEN 12 mg/dL (7-20); CARBON DIOXIDE 35 mmol/L (22-30); CHLORIDE 102 mmol/L (98-107); GLUCOSE 201 mg/dL (75-110); MAGNESIUM 2.3 mg/dL (1.6-2.3); POTASSIUM 4.4 mmol/L (3.6-5.0); SODIUM 142.6 mmol/L (137-145); TOTAL PROTEIN 5.6 g/dL (6.3-8.2)
[2017-06-08 07:26] LABS: ABSOLUTE LYMPHOCYTES (AUTO) 0.6 10^3/uL (0.5-4.7); ABSOLUTE MONOCYTES (AUTO) 0.2 10^3/uL (0.1-1.4); ABSOLUTE NEUT (AUTO) 1.4 10^3/uL (1.7-8.2); BASOPHILS % (AUTO) 0.3 % (0-2); EOSINOPHILS % (AUTO) 0.1 % (0-6); LYMPHOCYTES % (AUTO) 25.3 % (13-45); MEAN CORPUSCULAR HEMOGLOBIN 25.1 pg (27.0-33.4); MEAN CORPUSCULAR HGB CONC 31.3 g/dL (32.0-36.0); MEAN CORPUSCULAR VOLUME 80 fl (80-97); MONOCYTES % (AUTO) 10.7 % (3-13); PLATELET COUNT 215 10^3/uL (150-450); RED BLOOD COUNT 3.99 10^6/uL (3.72-5.28); RED CELL DISTRIBUTION WIDTH 18.6 % (11.5-14.0); SEGMENTED NEUTROPHILS % (AUTO) 63.6 % (42-78); TOTAL CELLS COUNTED % (AUTO) 100 %
[2017-06-08 07:43] LABS: WHITE BLOOD COUNT 2.2 10^3/uL (4.0-10.5)
[2017-06-08] MEDS ORDERED: CLONAZEPAM 1 MG TABLET PO PRN ×2 (08:39→15:15)
--- NOTE | 2017-06-08 09:24 | PDOC PROGRESS REPORT ---
Subjective Progress Note for:: 06/08/17 Subjective:: Pt states that she still feels like she can't breath. Nursing states that pt is very anxious. Reason For Visit: ACUTE HYPERCAPNEIC AND HYPOXIC RESP FAILURE Physical Exam Vital Signs: Temp Pulse Resp BP Pulse Ox 97.3 F 88 26 H 135/86 H 100 06/08/17 07:38 06/08/17 07:57 06/08/17 07:57 06/08/17 07:38 06/08/17 07:57 Intake & Output 06/07/17 06/08/17 06/09/17 06:59 06:59 06:59 Intake Total 1341 Output Total 350 Balance 991 Weight 62.9 kg General appearance: PRESENT: mild distress, well-developed, well-nourished Head exam: PRESENT: atraumatic, normocephalic Eye exam: PRESENT: conjunctiva pink, EOMI. ABSENT: scleral icterus Ear exam: PRESENT: normal external ear exam Mouth exam: PRESENT: moist, tongue midline Neck exam: ABSENT: carotid bruit, JVD, lymphadenopathy, thyromegaly Respiratory exam: PRESENT: decreased breath sounds, prolonged expiratory phas, wheezes - scant Cardiovascular exam: PRESENT: RRR. ABSENT: diastolic murmur, rubs, systolic murmur Pulses: PRESENT: normal dorsalis pedis pul Vascular exam: PRESENT: normal capillary refill GI/Abdominal exam: PRESENT: normal bowel sounds, soft. ABSENT: distended, guarding, mass, organolmegaly, rebound, tenderness Rectal exam: PRESENT: deferred Extremities exam: PRESENT: full ROM. ABSENT: calf tenderness, clubbing, pedal edema Musculoskeletal exam: PRESENT: full ROM Neurological exam: PRESENT: alert, awake, oriented to person, oriented to place , oriented to time, oriented to situation, CN II-XII grossly intact. ABSENT: motor sensory deficit Psychiatric exam: PRESENT: anxious Skin exam: PRESENT: dry, intact, warm. ABSENT: cyanosis, rash Results Laboratory Results: 06/08/17 06:57 06/08/17 06:57 06/08/17 06/08/17 06/08/17 01:01 06:57 06:57 WBC 2.2 L D RBC 3.99 Hgb 10.0 L Hct 32.0 L MCV 80 MCH 25.1 L MCHC 31.3 L RDW 18.6 H Plt Count 215 Seg Neutrophils % 63.6 Lymphocytes % 25.3 Monocytes % 10.7 Eosinophils % 0.1 Basophils % 0.3 Absolute Neutrophils 1.4 L Absolute Lymphocytes 0.6 Absolute Monocytes 0.2 Absolute Eosinophils 0.0 Absolute Basophils 0.0 Carbonic Acid 1.98 H HCO3/H2CO3 Ratio 17:1 ABG pH 7.33 L ABG pCO2 65.9 H ABG pO2 178.0 H ABG HCO3 33.7 H ABG O2 Saturation 99.1 H ABG Base Excess 5.9 FiO2 1.0 Sodium 142.6 Potassium 4.4 Chloride 102 Carbon Dioxide 35 H Anion Gap 6 BUN 12 Creatinine 0.59 Est GFR ( Amer) > 60 Est GFR (Non-Af Amer) > 60 Glucose 201 H Calcium 9.0 Magnesium 2.3 Total Bilirubin 0.3 AST 28 ALT 35 Alkaline Phosphatase 65 Total Protein 5.6 L Albumin 3.2 L 06/07/17 06/08/17 06/08/17 18:55 00:55 06:57 Troponin I 0.022 0.015 0.017 Impressions: Chest X-Ray 06/07/17 14:29 IMPRESSION: Chronic lung changes with no acute cardiopulmonary disease. Chest/Abdomen CTA 06/07/17 15:17 IMPRESSION: There is no evidence of pulmonary emboli. There is extensive pulmonary emphysema. Assessment & Plan - Diagnosis (1) Acute on chronic respiratory failure with hypoxia and hypercapnia Is this a current diagnosis for this admission?: Yes Plan: Patient wearing BiPAP. Will continue current treatment for now. Will check ABG to see if patient's CO2 has improved. (2) Anxiety Is this a current diagnosis for this admission?: Yes Plan: We will write for Klonopin as needed for anxiety. Will have to monitor closely to make sure that this does not worsen patient's respiratory function. (3) Leukopenia Qualifiers: Neutropenia type: unspecified Is this a current diagnosis for this admission?: Yes Plan: Will check CBC in a.m. currently unsure if this is a lab error versus bone marrow suppression from Levaquin. (4) Acute bronchitis with COPD Is this a current diagnosis for this admission?: Yes Plan: We will continue Levaquin, steroids, and breathing treatments. Patient will continue to use BiPAP. Will check ABG this morning to if gas exchange has improved (5) Atrial fibrillation Qualifiers: Atrial fibrillation type: chronic Qualified Code(s): I48.2 - Chronic atrial fibrillation Is this a current diagnosis for this admission?: Yes Plan: Will continue home medications. (6) Hypernatremia Is this a current diagnosis for this admission?: Yes Plan: Resolved. Will discontinue IVFs. (7) DVT prophylaxis Is this a current diagnosis for this admission?: Yes Plan: Eliquis - Time Time Spent with patient: 15-24 minutes
[2017-06-08 09:44] LABS: ARTERIAL BLOOD BASE EXCESS 5.9 mmol/L; ARTERIAL BLOOD H2CO3 1.85 mmol/L (1.05-1.35); ARTERIAL BLOOD HCO3 33.1 mmol/L (20-26); ARTERIAL BLOOD O2 SATURATION 94.3 % (94-98); ARTERIAL BLOOD PCO2 61.5 mmHg (35-45); ARTERIAL BLOOD PH 7.35 (7.35-7.45); ARTERIAL BLOOD PO2 76.4 mmHg (80-100)
[2017-06-08 09:45] LABS: ARTERIAL BLOOD FIO2 3 L
[2017-06-08] MEDS ORDERED: (PENDING PHARMACY ID) (Diltiazem Hcl [Cartia Xt] 180 MG) PO SCH (10:00)
[2017-06-08] MEDS ORDERED: (PENDING PHARMACY ID) (Potassium Chloride [Klor-Con M20] 20 MEQ) PO SCH (10:00)
[2017-06-08] MEDS ORDERED: FUROSEMIDE 40 MG TABLET PO SCH (10:00)
[2017-06-08] MEDS ORDERED: (PENDING PHARMACY ID) (Fluticasone Propionate [Flonase Allergy Relief] 2 SPRAY) NASL SCH (10:00)
[2017-06-08] MEDS: METOPROLOL SUCCINATE 50 MG TAB.SR.24H PO SCH (10:32)
[2017-06-08] MEDS: FOLIC ACID 1 MG TABLET PO SCH (10:32)
[2017-06-08] MEDS: BUDESONIDE/FORMOTEROL 160-4.5 MCG 60 PUFF/6 GM MDI IH SCH ×2 (10:33→22:00)
[2017-06-08] MEDS: FLUTICASONE NASAL SPRAY 50 MCG/SPRY 120 SPRAY/16 GM NASL SCH (10:33)
[2017-06-08] MEDS: DILTIAZEM HCL 180 MG CAPSULE.CR PO SCH (10:33)
[2017-06-08] MEDS: FERROUS SULFATE 325 MG TABLET PO SCH (10:33)
[2017-06-08] MEDS: ASCORBIC ACID 500 MG TABLET PO SCH (10:33)
[2017-06-08] MEDS: DIGOXIN 0.125 MG TABLET PO SCH (10:33)
[2017-06-08] MEDS: APIXABAN 2.5 MG TABLET PO SCH ×2 (10:33→21:58)
[2017-06-08] MEDS: GLIPIZIDE XL 2.5 MG TAB.ER.24 PO SCH (10:34)
[2017-06-08] MEDS: AMOXICILLIN TR/POT CLAVULANATE 500-125 MG TAB PO SCH ×2 (13:46→21:59)
[2017-06-08] MEDS: AZITHROMYCIN 500 MG in DEXTROSE 5%-WATER 250 ML IV SCH (22:00)
[2017-06-08] MEDS ORDERED: LEVOFLOXACIN 500 MG/D5W RTU 500 MG/100 ML RTUPB IV SCH (22:00)
[2017-06-09] MEDS: IPRATROPIUM/ALBUTEROL 0.5-2.5 MG/3 ML AMPUL NEB SCH ×3 (00:24→08:52)
[2017-06-09 05:13] LABS: ABSOLUTE LYMPHOCYTES (AUTO) 0.6 10^3/uL (0.5-4.7); ABSOLUTE MONOCYTES (AUTO) 0.4 10^3/uL (0.1-1.4); ABSOLUTE NEUT (AUTO) 5.7 10^3/uL (1.7-8.2); BASOPHILS % (AUTO) 0.7 % (0-2); EOSINOPHILS % (AUTO) 0.3 % (0-6); HEMATOCRIT 33.9 % (36.0-47.0); HEMOGLOBIN 10.7 g/dL (12.0-15.5); LYMPHOCYTES % (AUTO) 8.3 % (13-45); MEAN CORPUSCULAR HGB CONC 31.5 g/dL (32.0-36.0); MEAN CORPUSCULAR VOLUME 80 fl (80-97); MONOCYTES % (AUTO) 6.6 % (3-13); PLATELET COUNT 236 10^3/uL (150-450); RED BLOOD COUNT 4.26 10^6/uL (3.72-5.28); SEGMENTED NEUTROPHILS % (AUTO) 84.1 % (42-78); TOTAL CELLS COUNTED % (AUTO) 100 %
[2017-06-09] MEDS: LANSOPRAZOLE 30 MG TAB.RAP.DR PO SCH (05:17)
[2017-06-09] MEDS: METHYLPREDNISOLONE INJ 125 MG/2 ML SDV IV SCH ×3 (05:17→21:11)
[2017-06-09] MEDS: AMOXICILLIN TR/POT CLAVULANATE 500-125 MG TAB PO SCH ×3 (05:17→21:12)
[2017-06-09 05:29] LABS: ALANINE AMINOTRANSFERASE 34 U/L (9-52); ALBUMIN 3.4 g/dL (3.5-5.0); ALKALINE PHOSPHATASE 66 U/L (38-126); ANION GAP 10 (5-19); ASPARTATE AMINO TRANSFERASE 23 U/L (14-36); BILIRUBIN,DIRECT 0.2 mg/dL (0.0-0.4); BILIRUBIN,TOTAL 0.2 mg/dL (0.2-1.3); BLOOD UREA NITROGEN 15 mg/dL (7-20); CALCIUM 9.6 mg/dL (8.4-10.2); CARBON DIOXIDE 33 mmol/L (22-30); CHLORIDE 101 mmol/L (98-107); GLUCOSE 138 mg/dL (75-110); POTASSIUM 4.5 mmol/L (3.6-5.0); TOTAL PROTEIN 6.2 g/dL (6.3-8.2); WHITE BLOOD COUNT 6.8 10^3/uL (4.0-10.5)
[2017-06-09] MEDS: DILTIAZEM HCL 180 MG CAPSULE.CR PO SCH (09:04)
[2017-06-09] MEDS: DIGOXIN 0.125 MG TABLET PO SCH (09:04)
[2017-06-09] MEDS: FOLIC ACID 1 MG TABLET PO SCH (09:04)
[2017-06-09] MEDS: APIXABAN 2.5 MG TABLET PO SCH ×2 (09:04→21:12)
[2017-06-09] MEDS: METOPROLOL SUCCINATE 50 MG TAB.SR.24H PO SCH (09:05)
[2017-06-09] MEDS: ASCORBIC ACID 500 MG TABLET PO SCH (09:05)
[2017-06-09] MEDS: FERROUS SULFATE 325 MG TABLET PO SCH (09:05)
[2017-06-09] MEDS: GLIPIZIDE XL 2.5 MG TAB.ER.24 PO SCH (09:06)
[2017-06-09] MEDS: FLUTICASONE NASAL SPRAY 50 MCG/SPRY 120 SPRAY/16 GM NASL SCH (09:06)
[2017-06-09] MEDS: BUDESONIDE/FORMOTEROL 160-4.5 MCG 60 PUFF/6 GM MDI IH SCH ×2 (09:08→21:15)
[2017-06-09] MEDS: METOPROLOL TARTRATE PF/INJ 5 MG/5 ML SDV IV PRN (09:56)
[2017-06-09] MEDS ORDERED: LORAZEPAM INJ 2 MG/1 ML VIAL IV ONE (11:00)
[2017-06-09] MEDS: LEVALBUTEROL HCL NEB 1.25 MG/3 ML AMPUL NEB SCH ×3 (12:19→20:16)
--- NOTE | 2017-06-09 12:35 | PDOC PROGRESS REPORT ---
Subjective Progress Note for:: 06/09/17 Subjective:: Patient with endstage lung disease admitted with acute on chronic hypercapnic hypoxic respiratory failure. Patient tachycardic and tachypneic this morning. Patient states she cannot bring anything up despite coughing. She feels that something needs to come up. Reason For Visit: ACUTE HYPERCAPNEIC AND HYPOXIC RESP FAILURE Physical Exam Vital Signs: Temp Pulse Resp BP Pulse Ox 97.6 F 127 H 22 H 134/81 H 93 06/09/17 08:00 06/09/17 08:52 06/09/17 08:52 06/09/17 08:00 06/09/17 08:52 Intake & Output 06/08/17 06/09/17 06/10/17 06:59 06:59 06:59 Intake Total 1341 1099 Output Total 350 150 Balance 991 949 Weight 62.9 kg 63.2 kg General appearance: PRESENT: no acute distress, severe distress, well-developed , well-nourished, other - Patient sitting up at the side of the bed leaning over her bedside table trying to improve her breathing. Head exam: PRESENT: normocephalic Eye exam: PRESENT: EOMI. ABSENT: scleral icterus Ear exam: PRESENT: normal external ear exam Mouth exam: PRESENT: moist Neck exam: ABSENT: carotid bruit, JVD, lymphadenopathy, thyromegaly Respiratory exam: PRESENT: accessory muscle use, clear to auscultation martínez, decreased breath sounds, other - Speaking in broken sentences. Bipap masks in place.. ABSENT: rales, rhonchi, unlabored, wheezes Cardiovascular exam: PRESENT: RRR. ABSENT: diastolic murmur, rubs, systolic murmur Pulses: PRESENT: normal dorsalis pedis pul Vascular exam: PRESENT: normal capillary refill GI/Abdominal exam: PRESENT: normal bowel sounds, soft. ABSENT: distended, guarding, mass, organolmegaly, rebound, tenderness Rectal exam: PRESENT: deferred Extremities exam: PRESENT: full ROM. ABSENT: calf tenderness, clubbing, pedal edema Neurological exam: PRESENT: alert, awake, oriented to person, oriented to place , oriented to time, oriented to situation, CN II-XII grossly intact. ABSENT: motor sensory deficit Psychiatric exam: PRESENT: anxious, normal mood. ABSENT: homicidal ideation, suicidal ideation Skin exam: PRESENT: dry, intact, warm. ABSENT: cyanosis, rash Results Laboratory Results: 06/09/17 04:53 06/09/17 04:53 06/09/17 06/09/17 04:53 04:53 WBC 6.8 D RBC 4.26 Hgb 10.7 L Hct 33.9 L MCV 80 MCH 25.0 L MCHC 31.5 L RDW 18.0 H Plt Count 236 Seg Neutrophils % 84.1 H Lymphocytes % 8.3 L Monocytes % 6.6 Eosinophils % 0.3 Basophils % 0.7 Absolute Neutrophils 5.7 Absolute Lymphocytes 0.6 Absolute Monocytes 0.4 Absolute Eosinophils 0.0 Absolute Basophils 0.0 Sodium 144.0 Potassium 4.5 Chloride 101 Carbon Dioxide 33 H Anion Gap 10 BUN 15 Creatinine 0.59 Est GFR ( Amer) > 60 Est GFR (Non-Af Amer) > 60 Glucose 138 H Calcium 9.6 Total Bilirubin 0.2 AST 23 ALT 34 Alkaline Phosphatase 66 Total Protein 6.2 L Albumin 3.4 L 06/07/17 06/08/17 06/08/17 18:55 00:55 06:57 Troponin I 0.022 0.015 0.017 Impressions: Chest X-Ray 06/07/17 14:29 IMPRESSION: Chronic lung changes with no acute cardiopulmonary disease. Chest/Abdomen CTA 06/07/17 15:17 IMPRESSION: There is no evidence of pulmonary emboli. There is extensive pulmonary emphysema. Assessment & Plan - Diagnosis (1) Acute on chronic respiratory failure with hypoxia and hypercapnia Is this a current diagnosis for this admission?: Yes Plan: Patient on bipap. Will continue with steroids, antibiotics, nebs along with Mucomyst which was added today. Patient CO2 is mildly improved however this may be a chronic issue. (2) Acute bronchitis with COPD Is this a current diagnosis for this admission?: Yes Plan: Patient on Augmentin, steroids, breathing treatments, Mucomyst. Patient also on BiPAP. Being that patient has end-stage lung disease it may take time up to a week for patient to actually improved. She is still having much difficulty breathing. (3) Anxiety Is this a current diagnosis for this admission?: Yes Plan: She was started on Klonopin by the previous provider. Will give patient 1 dose of Ativan at this time as patient is really having difficulty breathing appears anxious. (4) Hypernatremia Is this a current diagnosis for this admission?: Yes Plan: Resolved. (5) Leukopenia Qualifiers: Neutropenia type: unspecified Is this a current diagnosis for this admission?: Yes Plan: Improved on repeat labs. (6) Atrial fibrillation Qualifiers: Atrial fibrillation type: chronic Qualified Code(s): I48.2 - Chronic atrial fibrillation Is this a current diagnosis for this admission?: Yes Plan: Continue home medications. Patient with sinus tachycardia at this point most likely due to her breathing treatments. Will discontinue duo nebs and start Xopenex instead. Patient will be given a as needed dose of metoprolol IV push for heart rates greater than 100. Patient is also on Eliquis 0.5 mg p.o. twice daily however this should be 5 mg twice a day. (7) DVT prophylaxis Plan: Patient on Eliquis 2.5 mg every 12 for A. fib however patient should be on 5 mg p.o. twice a day. - Time Time Spent with patient: 15-24 minutes Anticipated discharge: Home Within: within 72 hours - Inpatient Certification Medical Necessity: Significant Comorbidiites Make Outpatient Treatment Too Risky , Need Close Monitoring Due to Risk of Patient Decompensation, Need for Nebulizer Therapy and Monitoring of Response, Risk of Complication if Not Cared For in Hospital
[2017-06-09] MEDS: SODIUM CHLORIDE NASAL SPRAY 44 ML NASL SCH ×3 (16:03→21:15)
[2017-06-09] MEDS: ACETYLCYSTEINE 20% SOLN 800 MG/4 ML VIAL.NEB NEB SCH (20:16)
[2017-06-09] MEDS: AZITHROMYCIN 500 MG in DEXTROSE 5%-WATER 250 ML IV SCH (21:11)
[2017-06-10] MEDS: LEVALBUTEROL HCL NEB 1.25 MG/3 ML AMPUL NEB SCH ×6 (00:02→19:51)
[2017-06-10] MEDS: METHYLPREDNISOLONE INJ 125 MG/2 ML SDV IV SCH ×3 (05:26→21:16)
[2017-06-10] MEDS: AMOXICILLIN TR/POT CLAVULANATE 500-125 MG TAB PO SCH ×3 (05:26→21:17)
[2017-06-10] MEDS: LANSOPRAZOLE 30 MG TAB.RAP.DR PO SCH (05:28)
[2017-06-10 07:15] LABS: ANION GAP 11 (5-19); BLOOD UREA NITROGEN 22 mg/dL (7-20); CALCIUM 9.7 mg/dL (8.4-10.2); CARBON DIOXIDE 33 mmol/L (22-30); CHLORIDE 98 mmol/L (98-107); GLUCOSE 202 mg/dL (75-110); MAGNESIUM 2.1 mg/dL (1.6-2.3); POTASSIUM 4.7 mmol/L (3.6-5.0); SODIUM 142.2 mmol/L (137-145)
[2017-06-10] MEDS: SODIUM CHLORIDE NASAL SPRAY 44 ML NASL SCH ×4 (08:01→21:17)
[2017-06-10] MEDS: ACETYLCYSTEINE 20% SOLN 800 MG/4 ML VIAL.NEB NEB SCH ×2 (08:55→19:51)
[2017-06-10] MEDS: APIXABAN 2.5 MG TABLET PO SCH ×2 (10:18→21:17)
[2017-06-10] MEDS: METOPROLOL SUCCINATE 50 MG TAB.SR.24H PO SCH (10:18)
[2017-06-10] MEDS: DILTIAZEM HCL 180 MG CAPSULE.CR PO SCH (10:18)
[2017-06-10] MEDS: ASCORBIC ACID 500 MG TABLET PO SCH (10:19)
[2017-06-10] MEDS: FOLIC ACID 1 MG TABLET PO SCH (10:19)
[2017-06-10] MEDS: GLIPIZIDE XL 2.5 MG TAB.ER.24 PO SCH (10:19)
[2017-06-10] MEDS: DIGOXIN 0.125 MG TABLET PO SCH (10:19)
[2017-06-10] MEDS: FLUTICASONE NASAL SPRAY 50 MCG/SPRY 120 SPRAY/16 GM NASL SCH (10:19)
[2017-06-10] MEDS: FERROUS SULFATE 325 MG TABLET PO SCH (10:19)
[2017-06-10] MEDS: BUDESONIDE/FORMOTEROL 160-4.5 MCG 60 PUFF/6 GM MDI IH SCH ×2 (10:20→21:17)
[2017-06-10] MEDS: METOPROLOL TARTRATE PF/INJ 5 MG/5 ML SDV IV PRN ×2 (11:14→17:59)
--- NOTE | 2017-06-10 14:08 | PDOC PROGRESS REPORT ---
Subjective Progress Note for:: 06/10/17 Subjective:: Patient with endstage lung disease admitted with acute on chronic hypercapnic hypoxic respiratory failure. Patient is sitting up at the side of the bed leaning over her bedside tray. Patient states she can actually breathe today. She does not have on the BiPAP. Patient is wondering when she will be able to go home. She is requesting to be started on a multivitamin. Reason For Visit: ACUTE HYPERCAPNEIC AND HYPOXIC RESP FAILURE Physical Exam Vital Signs: Temp Pulse Resp BP Pulse Ox 97.9 F 98 22 H 129/89 H 100 06/10/17 12:15 06/10/17 12:15 06/10/17 12:15 06/10/17 12:15 06/10/17 12:15 Intake & Output 06/09/17 06/10/17 06/11/17 06:59 06:59 06:59 Intake Total 1099 1827 Output Total 150 Balance 949 1827 Weight 63.2 kg 63.1 kg General appearance: PRESENT: no acute distress, thin, well-developed Head exam: PRESENT: normocephalic Eye exam: PRESENT: EOMI. ABSENT: scleral icterus Ear exam: PRESENT: normal external ear exam Mouth exam: PRESENT: moist Teeth exam: PRESENT: other - missing dentition Neck exam: ABSENT: carotid bruit, JVD, lymphadenopathy, thyromegaly Respiratory exam: PRESENT: decreased breath sounds. ABSENT: rales, rhonchi, wheezes Cardiovascular exam: PRESENT: RRR. ABSENT: diastolic murmur, rubs, systolic murmur Pulses: PRESENT: normal dorsalis pedis pul Vascular exam: PRESENT: normal capillary refill GI/Abdominal exam: PRESENT: normal bowel sounds, soft. ABSENT: distended, guarding, mass, organolmegaly, rebound, tenderness Rectal exam: PRESENT: deferred Extremities exam: PRESENT: full ROM. ABSENT: calf tenderness, clubbing, pedal edema Neurological exam: PRESENT: alert, awake, oriented to person, oriented to place , oriented to time, oriented to situation, CN II-XII grossly intact. ABSENT: motor sensory deficit Psychiatric exam: PRESENT: appropriate affect, normal mood. ABSENT: homicidal ideation, suicidal ideation Skin exam: PRESENT: dry, intact, warm. ABSENT: cyanosis, rash Results Laboratory Results: 06/09/17 04:53 06/10/17 05:16 06/10/17 05:16 Sodium 142.2 Potassium 4.7 Chloride 98 Carbon Dioxide 33 H Anion Gap 11 BUN 22 H Creatinine 0.70 Est GFR ( Amer) > 60 Est GFR (Non-Af Amer) > 60 Glucose 202 H Calcium 9.7 Magnesium 2.1 06/07/17 06/08/17 06/08/17 18:55 00:55 06:57 Troponin I 0.022 0.015 0.017 Impressions: Chest X-Ray 06/07/17 14:29 IMPRESSION: Chronic lung changes with no acute cardiopulmonary disease. Chest/Abdomen CTA 06/07/17 15:17 IMPRESSION: There is no evidence of pulmonary emboli. There is extensive pulmonary emphysema. Assessment & Plan - Diagnosis (1) Acute on chronic respiratory failure with hypoxia and hypercapnia Is this a current diagnosis for this admission?: Yes Plan: Patient on bipap as needed and will sleep. Continue with steroids, antibiotics , nebs, and Mucomyst. (2) Acute bronchitis with COPD Is this a current diagnosis for this admission?: Yes Plan: Continue Augmentin, steroids, breathing treatments, Mucomyst. BiPAP and night. Being that patient has end-stage lung disease it may take time up to a week for patient to actually improved. Patient feels that her breathing is getting better. (3) Anxiety Is this a current diagnosis for this admission?: Yes Plan: Continue Klonopin. (4) Hypernatremia Is this a current diagnosis for this admission?: Yes Plan: Resolved. (5) Leukopenia Qualifiers: Neutropenia type: unspecified Is this a current diagnosis for this admission?: Yes Plan: Resolved. (6) Atrial fibrillation Qualifiers: Atrial fibrillation type: chronic Qualified Code(s): I48.2 - Chronic atrial fibrillation Is this a current diagnosis for this admission?: Yes Plan: Continue home medications. She still intermittent sinus tachycardia however improved. Will continue with metoprolol IV push as needed for heart rates greater than 100. Patient is also on Eliquis 0.5 mg p.o. twice daily however this should be 5 mg twice a day. (7) Metabolic alkalosis with respiratory acidosis Is this a current diagnosis for this admission?: Yes Plan: Patient bicab is trending down likely from 35-33. This is due to her hypercapnic respiratory failure. This is chronic but patient bicarb has improved to 28 in the past. Continue management of her COPD. Patient may never have a normal bicarb as long as she is compensating for her respiratory acidosis. (8) DVT prophylaxis Plan: Patient on Eliquis. - Time Time Spent with patient: 15-24 minutes Anticipated discharge: Home - Inpatient Certification Medical Necessity: Significant Comorbidiites Make Outpatient Treatment Too Risky , Need Close Monitoring Due to Risk of Patient Decompensation
[2017-06-10] MEDS: AZITHROMYCIN 500 MG in DEXTROSE 5%-WATER 250 ML IV SCH (22:41)
[2017-06-11] MEDS: LEVALBUTEROL HCL NEB 1.25 MG/3 ML AMPUL NEB SCH ×7 (00:08→23:49)
[2017-06-11] MEDS: METOPROLOL TARTRATE PF/INJ 5 MG/5 ML SDV IV PRN ×2 (01:00→06:44)
[2017-06-11] MEDS: AMOXICILLIN TR/POT CLAVULANATE 500-125 MG TAB PO SCH ×2 (05:37→14:07)
[2017-06-11] MEDS: METHYLPREDNISOLONE INJ 125 MG/2 ML SDV IV SCH ×3 (05:38→23:14)
[2017-06-11] MEDS: LANSOPRAZOLE 30 MG TAB.RAP.DR PO SCH (05:38)
[2017-06-11 06:17] LABS: ARTERIAL BLOOD BASE EXCESS 8.1 mmol/L; ARTERIAL BLOOD H2CO3 1.43 mmol/L (1.05-1.35); ARTERIAL BLOOD HCO3 33.1 mmol/L (20-26); ARTERIAL BLOOD O2 SATURATION 90.4 % (94-98); ARTERIAL BLOOD PCO2 47.6 mmHg (35-45); ARTERIAL BLOOD PH 7.46 (7.35-7.45); ARTERIAL BLOOD TOTAL CO2 34.6 mmol/L (21-25)
[2017-06-11 06:18] LABS: ARTERIAL BLOOD FIO2 3L
[2017-06-11] MEDS: SODIUM CHLORIDE NASAL SPRAY 44 ML NASL SCH ×4 (08:33→23:16)
[2017-06-11] MEDS: ACETYLCYSTEINE 20% SOLN 800 MG/4 ML VIAL.NEB NEB SCH ×2 (08:51→20:03)
[2017-06-11] MEDS: BUDESONIDE/FORMOTEROL 160-4.5 MCG 60 PUFF/6 GM MDI IH SCH (09:44)
[2017-06-11] MEDS: FLUTICASONE NASAL SPRAY 50 MCG/SPRY 120 SPRAY/16 GM NASL SCH (09:44)
[2017-06-11] MEDS: APIXABAN 2.5 MG TABLET PO SCH ×2 (09:45→23:14)
[2017-06-11] MEDS: FERROUS SULFATE 325 MG TABLET PO SCH (09:46)
[2017-06-11] MEDS: MULTIVITAMIN TABLET PO SCH (09:46)
[2017-06-11] MEDS: ASCORBIC ACID 500 MG TABLET PO SCH (09:46)
[2017-06-11] MEDS: GLIPIZIDE XL 2.5 MG TAB.ER.24 PO SCH (09:47)
[2017-06-11] MEDS: FOLIC ACID 1 MG TABLET PO SCH (09:47)
[2017-06-11] MEDS: DIGOXIN 0.125 MG TABLET PO SCH (09:49)
[2017-06-11] MEDS: DILTIAZEM HCL 180 MG CAPSULE.CR PO SCH (09:50)
[2017-06-11] MEDS: METOPROLOL SUCCINATE 50 MG TAB.SR.24H PO SCH ×2 (09:50→23:14)
[2017-06-11] MEDS ORDERED: MULTIVITAMINS W-IRON TABLET, CHEWABLE PO SCH (10:00)
--- NOTE | 2017-06-11 11:52 | PDOC PROGRESS REPORT ---
Subjective Progress Note for:: 06/11/17 Subjective:: Patient with endstage lung disease admitted with acute on chronic hypercapnic hypoxic respiratory failure. Patient is sitting up at the side of the bed leaning over her bedside tray. Patient states she feels as if she is moving air. Patient is asked to be started on her anxiety make medication. Patient states that her granddaughter is supposed to come visit her today. Patient states she is becoming very tired with minimal activity. Reason For Visit: ACUTE HYPERCAPNEIC AND HYPOXIC RESP FAILURE Physical Exam Vital Signs: Temp Pulse Resp BP Pulse Ox 97.5 F 99 19 137/93 H 96 06/11/17 07:37 06/11/17 08:49 06/11/17 08:49 06/11/17 07:37 06/11/17 08:49 Intake & Output 06/10/17 06/11/17 06/12/17 06:59 06:59 06:59 Intake Total 1827 1389 Balance 1827 1389 Weight 63.1 kg 64.4 kg General appearance: PRESENT: no acute distress, well-developed Head exam: PRESENT: normocephalic Eye exam: PRESENT: EOMI. ABSENT: scleral icterus Teeth exam: PRESENT: other - Missing dentition Neck exam: ABSENT: carotid bruit, JVD, lymphadenopathy, thyromegaly Respiratory exam: PRESENT: clear to auscultation martínez, decreased breath sounds - Can hear air movement on inspiration but none on expiration. ABSENT: rales, rhonchi, wheezes Cardiovascular exam: PRESENT: RRR, tachycardia. ABSENT: diastolic murmur, rubs , systolic murmur GI/Abdominal exam: PRESENT: normal bowel sounds, soft. ABSENT: distended, guarding, mass, organolmegaly, rebound, tenderness Rectal exam: PRESENT: deferred Extremities exam: PRESENT: full ROM. ABSENT: calf tenderness, clubbing, pedal edema Neurological exam: PRESENT: alert, awake, oriented to person, oriented to place , oriented to time, oriented to situation, CN II-XII grossly intact. ABSENT: motor sensory deficit Psychiatric exam: PRESENT: appropriate affect, normal mood. ABSENT: homicidal ideation, suicidal ideation Skin exam: PRESENT: dry, intact, warm. ABSENT: cyanosis, rash Results Laboratory Results: 06/09/17 04:53 06/10/17 05:16 06/11/17 06:00 Carbonic Acid 1.43 H HCO3/H2CO3 Ratio 23:1 ABG pH 7.46 H ABG pCO2 47.6 H ABG pO2 56.0 L ABG HCO3 33.1 H ABG O2 Saturation 90.4 L ABG Base Excess 8.1 FiO2 3L 06/09/17 04:16 Sputum Gram Stain - Final 06/09/17 04:16 Sputum Sputum Culture - Final Pseudomonas Aeruginosa Normal Candelaria Absent 06/07/17 06/08/17 06/08/17 18:55 00:55 06:57 Troponin I 0.022 0.015 0.017 Impressions: Chest X-Ray 06/07/17 14:29 IMPRESSION: Chronic lung changes with no acute cardiopulmonary disease. Chest/Abdomen CTA 06/07/17 15:17 IMPRESSION: There is no evidence of pulmonary emboli. There is extensive pulmonary emphysema. Assessment & Plan - Diagnosis (1) Acute on chronic respiratory failure with hypoxia and hypercapnia Is this a current diagnosis for this admission?: Yes Plan: Patient on bipap as needed and will sleep. Continue with steroids, antibiotics , nebs, and Mucomyst. ABG this morning shows improvement in CO2 however O2 is low at 56. Patient was on 3 L of oxygen at that time. Continue current management. (2) Acute bronchitis with COPD Is this a current diagnosis for this admission?: Yes Plan: Continue Augmentin, steroids, breathing treatments, Mucomyst. BiPAP and night. He takes some time for patient to significantly improve however patient states she is able to breathe better. Patient is still too week to ambulate. Sputum cultures have resulted and is positive for Pseudomonas. Patient is resistant to taking Levaquin therefore patient will be started on tobramycin nebs. (3) Anxiety Is this a current diagnosis for this admission?: Yes Plan: Patient started on Zoloft 25 mg daily. Patient states she does not want to take Klonopin. (4) Hypernatremia Is this a current diagnosis for this admission?: Yes Plan: Resolved. (5) Leukopenia Qualifiers: Neutropenia type: unspecified Is this a current diagnosis for this admission?: Yes Plan: Resolved. (6) Atrial fibrillation Qualifiers: Atrial fibrillation type: chronic Qualified Code(s): I48.2 - Chronic atrial fibrillation Is this a current diagnosis for this admission?: Yes Plan: Continue home medications. She still intermittent sinus tachycardia. Will continue with metoprolol IV push as needed for heart rates greater than 100. Increase patient toprolXL to 100 mg. Eliquis 5 mg p.o. twice daily. (7) Metabolic alkalosis with respiratory acidosis Is this a current diagnosis for this admission?: Yes Plan: Appears compensated at this time. Will continue to monitor. Is reluctant to take no medications. Patient is agreeable can start her on Diamox which will help with the metabolic alkalosis. (8) DVT prophylaxis Plan: Patient on Eliquis. - Time Time Spent with patient: 15-24 minutes Anticipated discharge: Home with Homehealth Within: within 72 hours - Inpatient Certification Medical Necessity: Significant Comorbidiites Make Outpatient Treatment Too Risky , Need Close Monitoring Due to Risk of Patient Decompensation
[2017-06-11] MEDS ORDERED: METOPROLOL SUCCINATE 50 MG TAB.SR.24H PO ONE ×2 (12:30→13:00)
[2017-06-11] MEDS ORDERED: DEXTROSE 50%-WATER 25 GM/50 ML DISP.SYRIN IV PRN ×2 (14:25)
[2017-06-11] MEDS ORDERED: GLUCAGON,HUMAN RECOMB 1 MG INJ IM PRN (14:25)
[2017-06-11] MEDS ORDERED: DEXTROSE 40% GEL 15 GM TUBE PO PRN ×2 (14:25)
--- NOTE | 2017-06-11 15:56 | EKG REPORT ---
SEVERITY:- ABNORMAL ECG - ATRIAL FLUTTER, A-RATE 272 ABNORMAL T, CONSIDER ISCHEMIA, DIFFUSE LEADS : Confirmed by: Kelby Grover 11-Jun-2017 15:55:31
[2017-06-11] MEDS: INSULIN LISPRO 100 UNIT/ML 3 ML VIAL SUBCUT PRN ×2 (17:24→23:13)
[2017-06-11] MEDS ORDERED: METOPROLOL SUCCINATE 50 MG TAB.SR.24H PO SCH ×2 (18:00)
[2017-06-11] MEDS ORDERED: TOBRAMYCIN SULFATE INJ 80 MG/2 ML VIAL NEB SCH (20:00)
[2017-06-12] MEDS: LEVALBUTEROL HCL NEB 1.25 MG/3 ML AMPUL NEB SCH ×5 (04:19→19:49)
[2017-06-12 06:29] LABS: ANION GAP 10 (5-19); BLOOD UREA NITROGEN 19 mg/dL (7-20); CALCIUM 9.5 mg/dL (8.4-10.2); CARBON DIOXIDE 37 mmol/L (22-30); CHLORIDE 96 mmol/L (98-107); GLUCOSE 144 mg/dL (75-110); MAGNESIUM 2.2 mg/dL (1.6-2.3); SODIUM 142.7 mmol/L (137-145)
[2017-06-12] MEDS: METHYLPREDNISOLONE INJ 125 MG/2 ML SDV IV SCH ×3 (07:11→22:48)
[2017-06-12] MEDS: LANSOPRAZOLE 30 MG TAB.RAP.DR PO SCH (07:13)
[2017-06-12] MEDS ORDERED: TOBRAMYCIN SULFATE NEB 40 MG/ML 30 ML NEB SCH (08:00)
[2017-06-12] MEDS: ACETYLCYSTEINE 20% SOLN 800 MG/4 ML VIAL.NEB NEB SCH ×2 (08:13→19:48)
[2017-06-12] MEDS: SODIUM CHLORIDE NASAL SPRAY 44 ML NASL SCH ×4 (08:36→22:50)
[2017-06-12] MEDS: INSULIN LISPRO 100 UNIT/ML 3 ML VIAL SUBCUT PRN ×3 (08:56→18:19)
[2017-06-12] MEDS ORDERED: METOPROLOL SUCCINATE 50 MG TAB.SR.24H PO SCH (10:00)
[2017-06-12] MEDS: DIGOXIN 0.125 MG TABLET PO SCH (11:14)
[2017-06-12] MEDS: FOLIC ACID 1 MG TABLET PO SCH (11:14)
[2017-06-12] MEDS: ASCORBIC ACID 500 MG TABLET PO SCH (11:15)
[2017-06-12] MEDS: FERROUS SULFATE 325 MG TABLET PO SCH (11:15)
[2017-06-12] MEDS: METOPROLOL SUCCINATE 50 MG TAB.SR.24H PO SCH ×2 (11:15→22:48)
[2017-06-12] MEDS: MULTIVITAMIN TABLET PO SCH (11:15)
[2017-06-12] MEDS: SERTRALINE HCL 50 MG TABLET PO SCH (11:16)
[2017-06-12] MEDS: APIXABAN 2.5 MG TABLET PO SCH ×2 (11:18→22:51)
[2017-06-12] MEDS: DILTIAZEM HCL 180 MG CAPSULE.CR PO SCH (11:18)
[2017-06-12] MEDS: GLIPIZIDE XL 2.5 MG TAB.ER.24 PO SCH (11:18)
[2017-06-12] MEDS: FLUTICASONE NASAL SPRAY 50 MCG/SPRY 120 SPRAY/16 GM NASL SCH (11:19)
[2017-06-12] MEDS: LEVOFLOXACIN 750 MG/D5W RTU 750 MG/150 ML RTUPB IV SCH (11:22)
[2017-06-12] MEDS ORDERED: ROFLUMILAST 500 MCG TABLET PO ONE (12:00)
[2017-06-12] MEDS ORDERED: BUDESONIDE NEB 0.5 MG/2 ML AMPUL NEB ONE (12:00)
[2017-06-12] MEDS ORDERED: TIOTROPIUM BROMIDE DPI 5 CAP/KIT (18 MCG/CAP) IH ONE (12:00)
--- NOTE | 2017-06-12 12:06 | PDOC PROGRESS REPORT ---
Subjective Progress Note for:: 06/12/17 Subjective:: Patient with endstage lung disease admitted with acute on chronic hypercapnic hypoxic respiratory failure. Patient laying in the bed on her right side. Patient states that she was having bronchospasms. 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 Reason For Visit: ACUTE HYPERCAPNEIC AND HYPOXIC RESP FAILURE Physical Exam Vital Signs: Temp Pulse Resp BP Pulse Ox 97.8 F 103 H 24 H 123/79 97 06/12/17 04:28 06/12/17 11:42 06/12/17 11:42 06/12/17 08:27 06/12/17 11:42 Intake & Output 06/11/17 06/12/17 06/13/17 06:59 06:59 06:59 Intake Total 1389 1512 Output Total 1200 Balance 1389 312 Weight 64.4 kg 63.1 kg General appearance: PRESENT: no acute distress, well-developed, well-nourished Head exam: PRESENT: normocephalic Eye exam: PRESENT: EOMI. ABSENT: scleral icterus Mouth exam: PRESENT: other - bipap mask in place Neck exam: ABSENT: carotid bruit, JVD, lymphadenopathy, thyromegaly Respiratory exam: PRESENT: accessory muscle use - patient raises her shoulders with breathing, clear to auscultation martínez, decreased breath sounds. ABSENT: rales, rhonchi, unlabored, wheezes Cardiovascular exam: PRESENT: irregular rhythm, tachycardia. ABSENT: diastolic murmur, rubs, systolic murmur GI/Abdominal exam: PRESENT: normal bowel sounds, soft. ABSENT: distended, guarding, mass, organolmegaly, rebound, tenderness Rectal exam: PRESENT: deferred Extremities exam: PRESENT: full ROM. ABSENT: calf tenderness, clubbing, pedal edema Neurological exam: PRESENT: alert, awake, oriented to person, oriented to place , oriented to time, oriented to situation, CN II-XII grossly intact. ABSENT: motor sensory deficit Psychiatric exam: PRESENT: appropriate affect, normal mood. ABSENT: homicidal ideation, suicidal ideation Skin exam: PRESENT: dry, intact, warm. ABSENT: cyanosis, rash Results Laboratory Results: 06/09/17 04:53 06/12/17 05:13 06/12/17 05:13 Sodium 142.7 Potassium 4.0 Chloride 96 L Carbon Dioxide 37 H Anion Gap 10 BUN 19 Creatinine 0.54 Est GFR ( Amer) > 60 Est GFR (Non-Af Amer) > 60 Glucose 144 H Calcium 9.5 Magnesium 2.2 06/09/17 04:16 Sputum Gram Stain - Final 06/09/17 04:16 Sputum Sputum Culture - Final Pseudomonas Aeruginosa Normal Candelaria Absent 06/07/17 06/08/17 06/08/17 18:55 00:55 06:57 Troponin I 0.022 0.015 0.017 Impressions: Chest X-Ray 06/07/17 14:29 IMPRESSION: Chronic lung changes with no acute cardiopulmonary disease. Chest/Abdomen CTA 06/07/17 15:17 IMPRESSION: There is no evidence of pulmonary emboli. There is extensive pulmonary emphysema. Assessment & Plan - Diagnosis (1) Acute on chronic respiratory failure with hypoxia and hypercapnia Is this a current diagnosis for this admission?: Yes Plan: Patient with PRN bipap. Continue with steroids, antibiotics, nebs, and Mucomyst. ABG this morning shows improvement in CO2 however O2 is low at 56. Continue current management. Consult pulmonary. (2) Acute bronchitis with COPD Is this a current diagnosis for this admission?: Yes Plan: Patient agreeable to levaquin therapy for her pseudomonas sputum culture which began on 06/11/17. Patient did not tolerate tobra nebs (bronchospasms). Will continue nebs, Mucomyst, steroids. Pulmonary consulted for further evaluation and recommendations. (3) Anxiety Is this a current diagnosis for this admission?: Yes Plan: Patient started on Zoloft 25 mg daily. (4) Hypernatremia Is this a current diagnosis for this admission?: Yes Plan: Resolved. (5) Leukopenia Qualifiers: Neutropenia type: unspecified Is this a current diagnosis for this admission?: Yes Plan: Resolved. (6) Atrial fibrillation Qualifiers: Atrial fibrillation type: chronic Qualified Code(s): I48.2 - Chronic atrial fibrillation Is this a current diagnosis for this admission?: Yes Plan: Actually with atrial flutter. Patient metoprolol was increased to 50 mg p.o. twice daily. Patient is on diltiazem and digoxin. Continue Eliquis. Dr. Grover consulted to evaluate patient give further recommendations. Concerning that patient respiratory status is triggering her cardiac arrhythmia. Will continue to try to control her respiratory symptoms. (7) Metabolic alkalosis with respiratory acidosis Is this a current diagnosis for this admission?: Yes Plan: Appears compensated at this time. If patient is agreeable can start her on Diamox which will help with the metabolic alkalosis. (8) DVT prophylaxis Plan: Patient on Eliquis. - Time Time Spent with patient: 15-24 minutes Anticipated discharge: Home Within: within 72 hours - Inpatient Certification Medical Necessity: Significant Comorbidiites Make Outpatient Treatment Too Risky , Need Close Monitoring Due to Risk of Patient Decompensation, Need For Continuous Telemetry Monitoring, Need for Nebulizer Therapy and Monitoring of Response, Need for IV Antibiotics
--- NOTE | 2017-06-12 13:30 | PDOC PROGRESS REPORT ---
Subjective Progress Note for:: 06/12/17 Subjective:: Patient complains of shortness of breath. This is chronic for this patient. Patient did not atrial flutter. Heart rate well controlled. Patient claims to be on Eliquis for this reason as an outpatient. Patient was recently seen in consultation. Patient also follows up with me in the office. Reason For Visit: ACUTE HYPERCAPNEIC AND HYPOXIC RESP FAILURE Physical Exam Vital Signs: Temp Pulse Resp BP Pulse Ox 97.5 F 93 16 129/86 H 99 06/12/17 12:12 06/12/17 12:12 06/12/17 12:12 06/12/17 12:12 06/12/17 12:12 Intake & Output 06/11/17 06/12/17 06/13/17 06:59 06:59 06:59 Intake Total 1389 1512 Output Total 1200 Balance 1389 312 Weight 64.4 kg 63.1 kg Exam: GENERAL: well-nourished and in no acute distress. Alert and oriented x3 HEAD: Atraumatic, normocephalic. EYES: Pupils equal round and reactive to light, extraocular movements intact, sclera anicteric, conjunctiva are normal. ENT: TMs normal, nares patent, oropharynx clear without exudates. Moist mucous membranes. No oral ulcerations or bleeding gums noted NECK: supple without lymphadenopathy. Trachea is central. No cervical or axillary lymphadenopathy noted. Carotids are 2+, JVD WNL LUNGS: Respiration seems nonlabored, no significant accessory muscle action noted. Bilateral mild wheezes rales or rhonchi noted. No significant dullness noted on percussion. CHEST: Palpation of the chest wall shows no significant chest wall tenderness. No other significant abnormalities noted. 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 ABDOMEN: Soft, no significant tenderness appreciated, normoactive bowel sounds. No guarding, no rebound. No rigidity noted . No masses appreciated. EXTREMITIES: Pedal pulses are 1-2+, no calf tenderness noted. No clubbing or cyanosis.trace to 1+ pedal edema noted NEUROLOGICAL: Focused neurological exam showed no significant neurologic deficit. Normal speech, no focal weakness appreciated. PSYCH: Normal mood, normal affect. Judgment and insight within normal limits. SKIN: No significant ecchymosis, rash, ulcerations or signs of pruritus noted. MUSCULOSKELETAL EXAM: No significant joint swelling noted. Results Laboratory Results: 06/09/17 04:53 06/12/17 05:13 06/12/17 05:13 Sodium 142.7 Potassium 4.0 Chloride 96 L Carbon Dioxide 37 H Anion Gap 10 BUN 19 Creatinine 0.54 Est GFR ( Amer) > 60 Est GFR (Non-Af Amer) > 60 Glucose 144 H Calcium 9.5 Magnesium 2.2 06/09/17 04:16 Sputum Gram Stain - Final 06/09/17 04:16 Sputum Sputum Culture - Final Pseudomonas Aeruginosa Normal Candelaria Absent 06/07/17 06/08/17 06/08/17 18:55 00:55 06:57 Troponin I 0.022 0.015 0.017 EKG Comments: Shows atrial flutter fibrillation with controlled ventricular response. Impressions: Chest X-Ray 06/07/17 14:29 IMPRESSION: Chronic lung changes with no acute cardiopulmonary disease. Chest/Abdomen CTA 06/07/17 15:17 IMPRESSION: There is no evidence of pulmonary emboli. There is extensive pulmonary emphysema. Assessment & Plan - Diagnosis (1) Atrial fibrillation and flutter Is this a current diagnosis for this admission?: Yes (2) COPD exacerbation Is this a current diagnosis for this admission?: Yes (3) Acute and chronic respiratory failure with hypoxia Is this a current diagnosis for this admission?: Yes (4) Anxiety Is this a current diagnosis for this admission?: Yes (5) Sleep apnea syndrome Qualifiers: Sleep apnea type: unspecified type Qualified Code(s): G47.30 - Sleep apnea , unspecified Is this a current diagnosis for this admission?: Yes - Notes Notes: Atrial flutter fibrillation: Recommend rate control and chronic anticoagulation. Diltiazem preferred. May add small dose of beta 1 selective beta-petty if needed. COPD exacerbation: Continue management with oxygen, bronchodilator therapy and steroid therapy. Respiratory failure: Continue current management plans. May consider pulmonary help. Anxiety: Currently stable. Sleep apnea syndrome. Patient encouraged compliance with CPAP therapy. - Time Time with patient: 15-25 minutes Medications reviewed and adjusted accordingly: Yes
[2017-06-12] MEDS: BUDESONIDE NEB 0.5 MG/2 ML AMPUL NEB SCH (19:49)
--- NOTE | 2017-06-12 19:49 | PDOC CONSULTATION ---
Consultation Consult Date: 06/12/17 Attending physician:: FLORA POSEY Consult reason:: copd/dypsnea History of Present Illness Admission Date/PCP: 06/07/17 18:15 PAMELA HARRISON MD History of Present Illness: ANGELINA VALERIO is a 56 year old female with complaint of shortness of breath.She is well known to [facility] Pt states that she was recently discharged and did well for the first week. Pt states by the second week she became more short of breath. Pt states that she noted that was was wheezing. Pt states that she did have one episode of diarrhea and felt nauseated. Pt states that he has not had chest pain nor fever.She has a 40+ pyhx w/o cigs x 10 months.She was followed for advanced resp failure but states she can't tolerate her triology. 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 Denies: Gestational Diabetes Renal/ Medical History: Denies: Nephrolithiasis GI Medical History: Denies: Cirrhosis, Crohn's Disease, Ulcerative Colitis Musculoskeltal Medical History: Reports: Arthritis Denies: Gout Skin Medical History: Denies: Psoriasis Psychiatric Medical History: Reports: Tobacco Dependency Denies: Depression Traumatic Medical History: Reports: Traumatic Brain Injury Hematology: Reports: Anemia Denies: Sickle Cell Disease Infectious Medical History: Denies: Hepatitis B, Hepatitis C Past Surgical History Past Surgical History: Reports: Cardiac Catheterization, Section Social History Information Source: Patient, [facility] Records Smoking Status: Former Smoker Number of Years Smokin Last Time Smoked: 1 year ago Passive smoke exposure as: Both Frequency of Alcohol Use: None Hx Recreational Drug Use: No Drugs: None Hx Prescription Drug Abuse: No Do you have pets?: Yes Have you had any respiratory illnesses as a child?: No Have you been exposed to any sick contacts recently?: Yes Have you had any recent respiratory illnesses?: No Have you travelled outside of [place] in the past 12 months?: No - Advance Directive Resuscitation Status: Full Code Family History Family History: CAD, COPD, Hypertension Parental Family History Reviewed: Yes Children Family History Reviewed: Yes Sibling(s) Family History Reviewed.: Yes Medication/Allergy Home Medications: Albuterol Sulfate [Proair HFA] 2 puff IN Q4 06/07/17 Apixaban [Eliquis 2.5 mg Tablet] 2.5 mg PO Q12 06/07/17 Ascorbic Acid [Vitamin C 500 mg Tablet] 500 mg PO DAILY 06/07/17 Budesonide/Formoterol Fumarate [Symbicort 160-4.5 Mcg Inhaler] 2 puff IN Q12 Digoxin [Lanoxin] 125 mcg PO DAILY 06/07/17 Diltiazem HCl [Cartia Xt] 180 mg PO DAILY 06/07/17 Ferrous Sulfate [Iron] 325 mg PO DAILY 06/07/17 Fluticasone Propionate [Flonase Allergy Relief] 2 spray NASL DAILY 06/07/17 Folic Acid 1 mg PO DAILY 06/07/17 Furosemide [Lasix 40 mg Tablet] 40 mg PO DAILY 06/07/17 Glipizide [Glipizide ER] 2.5 mg PO DAILY 06/07/17 Ipratropium/Albuterol Sulfate [Duoneb 3 ml Ampul] 3 ml IN RTQ6 06/07/17 Metoprolol Succinate [Toprol Xl] 50 mg PO DAILY 06/07/17 Potassium Chloride [Klor-Con M20] 20 meq PO DAILY 06/07/17 Tiotropium [place] [Spiriva Handihaler 18 mcg/dose (30 Dose)] 1 puff IN DAILY Allergies/Adverse Reactions: erythromycin base [Erythromycin Base] Allergy (Mild, Verified 04/29/17 15:15) Review of Systems Constitutional: PRESENT: anorexia, chills, fatigue, fever(s). ABSENT: night sweats, weight gain Eyes: ABSENT: visual disturbances Ears: ABSENT: hearing changes Nose, Mouth, and Throat: ABSENT: mouth pain, sore throat Cardiovascular: PRESENT: dyspnea on exertion, orthropnea. ABSENT: palpitations Respiratory: PRESENT: dyspnea Gastrointestinal: ABSENT: abdominal pain, bloating, diarrhea, heartburn, hematemesis, hematochezia, melena, nausea Genitourinary: PRESENT: nocturia. ABSENT: difficulty urinating, dysuria Musculoskeletal: ABSENT: deformity, joint swelling Integumentary: ABSENT: diaphoresis, pruritus, rash Neurological: ABSENT: abnormal gait, abnormal movements, abnormal speech, confusion, frequent falls, lack of coordination, memory loss Psychiatric: ABSENT: hallucinations, homidical ideation, suicidal ideation Endocrine: ABSENT: cold intolerance, heat intolerance, menstrual abnormalities Hematologic/Lymphatic: ABSENT: easy bruising Physical Exam Vital Signs: Temp Pulse Resp BP Pulse Ox 97.8 F 101 H 21 H 123/79 100 06/12/17 04:28 06/12/17 08:27 06/12/17 08:08 06/12/17 08:27 06/12/17 08:27 Intake & Output 06/11/17 06/12/17 06/13/17 06:59 06:59 06:59 Intake Total 1389 1512 Output Total 1200 Balance 1389 312 Weight 64.4 kg 63.1 kg General appearance: PRESENT: no acute distress, cooperative, disheveled, thin, well-developed. ABSENT: mild distress, morbidly obese, obese, severe distress Head exam: PRESENT: atraumatic, normocephalic Eye exam: PRESENT: conjunctiva pale, EOMI. ABSENT: conjunctival injection, conjunctiva pink, nystagmus, periorbital swelling, scleral icterus Mouth exam: PRESENT: dry mucosa, neck supple, tongue midline. ABSENT: laceration, moist Neck exam: ABSENT: carotid bruit, JVD, lymphadenopathy, thyromegaly, tracheal deviation, tracheostomy Respiratory exam: PRESENT: crackles, decreased breath sounds, prolonged expiratory phas, rhonchi, symmetrical, unlabored, wheezes. ABSENT: accessory muscle use, chest wall tenderness, clear to auscultation martínez, rales, retraction , stridor, tachypnea Cardiovascular exam: PRESENT: RRR, +S1, +S2 Pulses: PRESENT: normal radial pulses GI/Abdominal exam: PRESENT: normal bowel sounds, soft. ABSENT: distended, guarding, mass, organolmegaly, rebound, tenderness Extremities exam: ABSENT: clubbing, joint swelling Musculoskeletal exam: ABSENT: deformity, dislocation Neurological exam: PRESENT: alert, awake Psychiatric exam: PRESENT: normal mood Skin exam: PRESENT: dry, warm Results Laboratory Results: 06/09/17 04:53 06/12/17 05:13 06/12/17 05:13 Sodium 142.7 Potassium 4.0 Chloride 96 L Carbon Dioxide 37 H Anion Gap 10 BUN 19 Creatinine 0.54 Est GFR ( Amer) > 60 Est GFR (Non-Af Amer) > 60 Glucose 144 H Calcium 9.5 Magnesium 2.2 06/09/17 04:16 Sputum Gram Stain - Final 06/09/17 04:16 Sputum Sputum Culture - Final Pseudomonas Aeruginosa Normal Candelaria Absent 06/07/17 06/08/17 06/08/17 18:55 00:55 06:57 Troponin I 0.022 0.015 0.017 Impressions: Chest X-Ray 06/07/17 14:29 IMPRESSION: Chronic lung changes with no acute cardiopulmonary disease. Chest/Abdomen CTA 06/07/17 15:17 IMPRESSION: There is no evidence of pulmonary emboli. There is extensive pulmonary emphysema. Assessment & Plan - Diagnosis (1) Acute on chronic respiratory failure with hypoxia and hypercapnia Is this a current diagnosis for this admission?: Yes Plan: add LAMA add ICCS add dalirsp (2) Anxiety Is this a current diagnosis for this admission?: Yes Plan: resume xanax avoid withdrawal and assist with anxiety (3) Atrial fibrillation and flutter Is this a current diagnosis for this admission?: Yes Plan: Generic Name Dose Route Start Last Admin Trade Name Freq PRN Reason Stop Dose Admin Diltiazem HCl 180 mg 06/08/17 10:00 06/11/17 09:50 Cardizem Cd 180 Mg Capsule PO 07/08/17 09:59 180 mg DAILY ANA Digoxin 0.125 mg 06/08/17 10:00 06/11/17 09:49 Lanoxin 0.125 Mg Tablet PO 07/08/17 09:59 0.125 mg DAILY ANA Metoprolol Succinate 50 mg 06/11/17 22:00 06/11/17 23:14 Toprol Xl 50 Mg Tab.Sr PO 07/11/17 21:59 50 mg Q12 ANA Metoprolol Tartrate 5 mg 06/09/17 09:21 06/11/17 06:44 Lopressor Inj/Pf 5 Mg/5 Ml Sdv IV 07/09/17 09:20 5 mg Q6HP PRN HR>100 consider decrease in beta petty increase in diltiazem and/or digoxin current dig level sub therapeutic
[2017-06-13] MEDS: ALPRAZOLAM 0.25 MG TABLET PO PRN ×3 (00:04→22:55)
[2017-06-13] MEDS: LEVALBUTEROL HCL NEB 1.25 MG/3 ML AMPUL NEB SCH ×6 (00:24→20:01)
[2017-06-13] MEDS: LANSOPRAZOLE 30 MG TAB.RAP.DR PO SCH (06:50)
[2017-06-13] MEDS: METHYLPREDNISOLONE INJ 125 MG/2 ML SDV IV SCH ×3 (06:50→22:55)
[2017-06-13] MEDS: INSULIN LISPRO 100 UNIT/ML 3 ML VIAL SUBCUT PRN ×3 (07:44→18:53)
[2017-06-13] MEDS: SODIUM CHLORIDE NASAL SPRAY 44 ML NASL SCH ×4 (07:45→23:06)
[2017-06-13] MEDS: ACETYLCYSTEINE 20% SOLN 800 MG/4 ML VIAL.NEB NEB SCH ×2 (08:56→20:01)
[2017-06-13] MEDS: BUDESONIDE NEB 0.5 MG/2 ML AMPUL NEB SCH ×2 (08:56→20:01)
[2017-06-13] MEDS: LEVOFLOXACIN 750 MG/D5W RTU 750 MG/150 ML RTUPB IV SCH (09:37)
[2017-06-13] MEDS: ASCORBIC ACID 500 MG TABLET PO SCH (09:40)
[2017-06-13] MEDS: DIGOXIN 0.125 MG TABLET PO SCH (09:40)
[2017-06-13] MEDS: FOLIC ACID 1 MG TABLET PO SCH (09:40)
[2017-06-13] MEDS: METOPROLOL SUCCINATE 50 MG TAB.SR.24H PO SCH ×2 (09:42→22:55)
[2017-06-13] MEDS: DILTIAZEM HCL 180 MG CAPSULE.CR PO SCH (09:42)
[2017-06-13] MEDS: MULTIVITAMIN TABLET PO SCH (09:43)
[2017-06-13] MEDS: FERROUS SULFATE 325 MG TABLET PO SCH (09:43)
[2017-06-13] MEDS: GLIPIZIDE XL 2.5 MG TAB.ER.24 PO SCH (09:44)
[2017-06-13] MEDS: SERTRALINE HCL 50 MG TABLET PO SCH (09:44)
[2017-06-13] MEDS: FLUTICASONE NASAL SPRAY 50 MCG/SPRY 120 SPRAY/16 GM NASL SCH (09:45)
[2017-06-13] MEDS: APIXABAN 2.5 MG TABLET PO SCH ×2 (09:45→22:55)
--- NOTE | 2017-06-13 11:26 | PDOC PROGRESS REPORT ---
Subjective Progress Note for:: 06/13/17 Subjective:: a little better Reason For Visit: ACUTE HYPERCAPNEIC AND HYPOXIC RESP FAILURE Physical Exam Vital Signs: Temp Pulse Resp BP Pulse Ox 99.3 F 131 H 20 146/100 H 88 L 06/13/17 07:48 06/13/17 07:48 06/13/17 07:48 06/13/17 07:48 06/13/17 08:12 Intake & Output 06/12/17 06/13/17 06/14/17 06:59 06:59 06:59 Intake Total 1512 1662 Output Total 1200 1250 Balance 312 412 Weight 63.1 kg 65.1 kg General appearance: PRESENT: no acute distress, cooperative, disheveled, thin. ABSENT: hard of hearing, mild distress, morbidly obese, obese, severe distress Head exam: PRESENT: atraumatic, normocephalic Eye exam: PRESENT: conjunctiva pale, EOMI. ABSENT: conjunctival injection, conjunctiva pink, nystagmus, periorbital swelling, scleral icterus Mouth exam: PRESENT: dry mucosa, neck supple, tongue midline. ABSENT: laceration, moist Neck exam: ABSENT: carotid bruit, JVD, lymphadenopathy, thyromegaly, tracheal deviation, tracheostomy Respiratory exam: PRESENT: crackles, decreased breath sounds, prolonged expiratory phas, rhonchi, symmetrical, unlabored. ABSENT: accessory muscle use , chest wall tenderness, clear to auscultation martínez, rales, retraction, stridor, tachypnea Cardiovascular exam: PRESENT: RRR, +S1, +S2. ABSENT: irregular rhythm, rubs Pulses: PRESENT: normal radial pulses GI/Abdominal exam: PRESENT: normal bowel sounds, soft. ABSENT: distended, guarding, mass, organolmegaly, rebound, tenderness Extremities exam: ABSENT: clubbing, joint swelling Musculoskeletal exam: ABSENT: deformity, dislocation Neurological exam: PRESENT: alert, awake Psychiatric exam: PRESENT: normal mood Skin exam: PRESENT: dry, warm Results Laboratory Results: 06/09/17 04:53 06/12/17 05:13 06/07/17 06/08/17 06/08/17 18:55 00:55 06:57 Troponin I 0.022 0.015 0.017 Impressions: Chest X-Ray 06/07/17 14:29 IMPRESSION: Chronic lung changes with no acute cardiopulmonary disease. Chest/Abdomen CTA 06/07/17 15:17 IMPRESSION: There is no evidence of pulmonary emboli. There is extensive pulmonary emphysema. Assessment & Plan - Diagnosis (1) Acute on chronic respiratory failure with hypoxia and hypercapnia Is this a current diagnosis for this admission?: Yes Plan: add LAMA add ICCS add dalirsp (2) Anxiety Is this a current diagnosis for this admission?: Yes Plan: resume xanax avoid withdrawal and assist with anxiety (3) Atrial fibrillation and flutter Is this a current diagnosis for this admission?: Yes Plan: Generic Name Dose Route Start Last Admin Trade Name Freq PRN Reason Stop Dose Admin Diltiazem HCl 180 mg 06/08/17 10:00 06/11/17 09:50 Cardizem Cd 180 Mg Capsule PO 07/08/17 09:59 180 mg DAILY ANA Digoxin 0.125 mg 06/08/17 10:00 06/11/17 09:49 Lanoxin 0.125 Mg Tablet PO 07/08/17 09:59 0.125 mg DAILY ANA Metoprolol Succinate 50 mg 06/11/17 22:00 06/11/17 23:14 Toprol Xl 50 Mg Tab.Sr PO 07/11/17 21:59 50 mg Q12 ANA Metoprolol Tartrate 5 mg 06/09/17 09:21 06/11/17 06:44 Lopressor Inj/Pf 5 Mg/5 Ml Sdv IV 07/09/17 09:20 5 mg Q6HP PRN HR>100 consider decrease in beta petty increase in diltiazem and/or digoxin current dig level sub therapeutic
--- NOTE | 2017-06-13 13:14 | PDOC PROGRESS REPORT ---
Subjective Progress Note for:: 06/13/17 Subjective:: Patient with endstage lung disease admitted with acute on chronic hypercapnic hypoxic respiratory failure. Patient laying in the bed on her right side. Patient states she feels better but can hardly walk without getting short of breath. Patient thinks her anxiety is getting the best of her. Reason For Visit: ACUTE HYPERCAPNEIC AND HYPOXIC RESP FAILURE Physical Exam Vital Signs: Temp Pulse Resp BP Pulse Ox 99.3 F 106 H 19 146/100 H 94 06/13/17 07:48 06/13/17 12:27 06/13/17 12:27 06/13/17 07:48 06/13/17 12:27 Intake & Output 06/12/17 06/13/17 06/14/17 06:59 06:59 06:59 Intake Total 1512 1662 Output Total 1200 1250 Balance 312 412 Weight 63.1 kg 65.1 kg General appearance: PRESENT: no acute distress, thin, well-developed, well- nourished Head exam: PRESENT: normocephalic Eye exam: PRESENT: EOMI. ABSENT: scleral icterus Ear exam: PRESENT: normal external ear exam Mouth exam: PRESENT: moist Neck exam: ABSENT: carotid bruit, JVD, lymphadenopathy, thyromegaly Respiratory exam: PRESENT: clear to auscultation martínez, decreased breath sounds - only hear inspiratory breath sounds. Shallow breathes. ABSENT: rales, rhonchi , wheezes Cardiovascular exam: PRESENT: RRR. ABSENT: diastolic murmur, rubs, systolic murmur Pulses: PRESENT: normal dorsalis pedis pul Vascular exam: PRESENT: normal capillary refill GI/Abdominal exam: PRESENT: normal bowel sounds, soft. ABSENT: distended, guarding, mass, organolmegaly, rebound, tenderness Rectal exam: PRESENT: deferred Extremities exam: PRESENT: full ROM. ABSENT: calf tenderness, clubbing, pedal edema Neurological exam: PRESENT: alert, awake, oriented to person, oriented to place , oriented to time, oriented to situation, CN II-XII grossly intact. ABSENT: motor sensory deficit Psychiatric exam: PRESENT: appropriate affect, normal mood. ABSENT: homicidal ideation, suicidal ideation Skin exam: PRESENT: dry, intact, warm. ABSENT: cyanosis, rash Results Laboratory Results: 06/09/17 04:53 06/12/17 05:13 06/07/17 06/08/17 06/08/17 18:55 00:55 06:57 Troponin I 0.022 0.015 0.017 Impressions: Chest X-Ray 06/07/17 14:29 IMPRESSION: Chronic lung changes with no acute cardiopulmonary disease. Chest/Abdomen CTA 06/07/17 15:17 IMPRESSION: There is no evidence of pulmonary emboli. There is extensive pulmonary emphysema. Assessment & Plan - Diagnosis (1) Acute on chronic respiratory failure with hypoxia and hypercapnia Is this a current diagnosis for this admission?: Yes Plan: Patient with PRN bipap. Continue with steroids, antibiotics, nebs, and Mucomyst. Appreciate adjustments made by Dr. Talbot. (2) Acute bronchitis with COPD Is this a current diagnosis for this admission?: Yes Plan: Patient agreeable to levaquin therapy for her pseudomonas sputum culture which began on 06/11/17. Patient did not tolerate tobra nebs (bronchospasms). Continue nebs, Mucomyst, steroids. Appreciate assistance by pulmonary. (3) Anxiety Is this a current diagnosis for this admission?: Yes Plan: Continue Zoloft 25 mg daily. (4) Hypernatremia Is this a current diagnosis for this admission?: Yes Plan: Resolved. (5) Leukopenia Qualifiers: Neutropenia type: unspecified Is this a current diagnosis for this admission?: Yes Plan: Resolved. (6) Atrial fibrillation Qualifiers: Atrial fibrillation type: chronic Qualified Code(s): I48.2 - Chronic atrial fibrillation Is this a current diagnosis for this admission?: Yes Plan: Actually with atrial flutter. Patient metoprolol was increased to 50 mg p.o. twice daily. Patient is on diltiazem and digoxin. Continue Eliquis. Believe that respiratory status is triggering her cardiac arrhythmia. Appreciate cardiac recommendations. (7) Metabolic alkalosis with respiratory acidosis Is this a current diagnosis for this admission?: Yes Plan: Appears compensatory. Will continue to monitor. (8) DVT prophylaxis Plan: Patient on Eliquis. - Time Time Spent with patient: Less than 15 minutes Anticipated discharge: Home Within: within 72 hours - Inpatient Certification Medical Necessity: Significant Comorbidiites Make Outpatient Treatment Too Risky , Need Close Monitoring Due to Risk of Patient Decompensation, Need for IV Antibiotics
--- NOTE | 2017-06-13 19:35 | PDOC PROGRESS REPORT ---
Subjective Progress Note for:: 06/13/17 Subjective:: Discussed with Dr. Talbot this morning. Feel that patient will benefit from Roflumilast. After discussing with him have started patient on Roflumilast. Patient has had multiple admissions this year for COPD exacerbation. Patient also is noted to have severe COPD based on PFT function, this was related to me by Dr. Talbot. Patient complains of shortness of breath. This is chronic for this patient. Patient did not atrial flutter. Heart rate well controlled. Patient claims to be on Eliquis for this reason as an outpatient. Patient was recently seen in consultation. Patient also follows up with me in the office. Reason For Visit: ACUTE HYPERCAPNEIC AND HYPOXIC RESP FAILURE Physical Exam Vital Signs: Temp Pulse Resp BP Pulse Ox 98.4 F 117 H 18 155/74 H 93 06/13/17 16:00 06/13/17 16:12 06/13/17 16:12 06/13/17 16:00 06/13/17 16:12 Intake & Output 06/12/17 06/13/17 06/14/17 06:59 06:59 06:59 Intake Total 1512 1662 727 Output Total 1200 1250 Balance 312 412 727 Weight 63.1 kg 65.1 kg Exam: GENERAL: well-nourished and in no acute distress. Alert and oriented x3 HEAD: Atraumatic, normocephalic. EYES: Pupils equal round and reactive to light, extraocular movements intact, sclera anicteric, conjunctiva are normal. ENT: TMs normal, nares patent, oropharynx clear without exudates. Moist mucous membranes. No oral ulcerations or bleeding gums noted NECK: supple without lymphadenopathy. Trachea is central. No cervical or axillary lymphadenopathy noted. Carotids are 2+, JVD WNL LUNGS: Respiration seems nonlabored, no significant accessory muscle action noted. Breath sounds shows bilateral mild wheezes rales or rhonchi noted. No significant dullness noted on percussion. CHEST: Palpation of the chest wall shows no significant chest wall tenderness. No other significant abnormalities noted. HEART: [place] [employer] RE[employer], No PSH, 1/6 TERRIE aortic area, 1/6 johnson systolic murmur mitral area, no rubs, no gallops. ABDOMEN: Soft, no significant tenderness appreciated, normoactive bowel sounds. No guarding, no rebound. No rigidity noted . No masses appreciated. EXTREMITIES: Pedal pulses are 1-2+, no calf tenderness noted. No clubbing or cyanosis.trace to 1+ pedal edema noted NEUROLOGICAL: Focused neurological exam showed no significant neurologic deficit. Normal speech, no focal weakness appreciated. PSYCH: Normal mood, normal affect. Judgment and insight within normal limits. SKIN: No significant ecchymosis, rash, ulcerations or signs of pruritus noted. MUSCULOSKELETAL EXAM: No significant joint swelling noted. Results Laboratory Results: 06/09/17 04:53 06/12/17 05:13 06/07/17 06/08/17 06/08/17 18:55 00:55 06:57 Troponin I 0.022 0.015 0.017 Impressions: Chest X-Ray 06/07/17 14:29 IMPRESSION: Chronic lung changes with no acute cardiopulmonary disease. Chest/Abdomen CTA 06/07/17 15:17 IMPRESSION: There is no evidence of pulmonary emboli. There is extensive pulmonary emphysema. Assessment & Plan - Diagnosis (1) Atrial fibrillation and flutter Is this a current diagnosis for this admission?: Yes (2) COPD exacerbation Is this a current diagnosis for this admission?: Yes (3) Acute and chronic respiratory failure with hypoxia Is this a current diagnosis for this admission?: Yes (4) Anxiety Is this a current diagnosis for this admission?: Yes (5) Sleep apnea syndrome Qualifiers: Sleep apnea type: unspecified type Qualified Code(s): G47.30 - Sleep apnea , unspecified Is this a current diagnosis for this admission?: Yes - Notes Notes: Patient remains significantly short of breath and is needing almost around-the- clock bilevel therapy. These adjustments are being made by chassis inspector. After talking with Dr. Talbot today, I have started patient on Roflumilast at 500 mg p.o. daily. Hopefully this will help reduce COPD exacerbation. Side effects to be discussed. - Time Time with patient: 15-25 minutes - More than 50% of the time spent coordinating care, discussing management plans with involved caregivers. Management plans discussed with involved personnels. Medical decision making was of moderate to high complexity, patient's has multiple comorbidities. Medications reviewed and adjusted accordingly: Yes
[2017-06-14] MEDS: LEVALBUTEROL HCL NEB 1.25 MG/3 ML AMPUL NEB SCH ×5 (00:43→16:33)
[2017-06-14] MEDS: METHYLPREDNISOLONE INJ 125 MG/2 ML SDV IV SCH ×2 (06:59→13:26)
[2017-06-14] MEDS: LANSOPRAZOLE 30 MG TAB.RAP.DR PO SCH (06:59)
[2017-06-14] MEDS: INSULIN LISPRO 100 UNIT/ML 3 ML VIAL SUBCUT PRN ×3 (07:02→17:41)
[2017-06-14] MEDS: SODIUM CHLORIDE NASAL SPRAY 44 ML NASL SCH ×3 (07:03→17:39)
[2017-06-14] MEDS: BUDESONIDE NEB 0.5 MG/2 ML AMPUL NEB SCH (07:50)
[2017-06-14] MEDS: ACETYLCYSTEINE 20% SOLN 800 MG/4 ML VIAL.NEB NEB SCH (07:50)
[2017-06-14] MEDS: DILTIAZEM HCL 180 MG CAPSULE.CR PO SCH (09:57)
[2017-06-14] MEDS: APIXABAN 2.5 MG TABLET PO SCH (09:57)
[2017-06-14] MEDS: SERTRALINE HCL 50 MG TABLET PO SCH (09:58)
[2017-06-14] MEDS: DIGOXIN 0.125 MG TABLET PO SCH (09:58)
[2017-06-14] MEDS ORDERED: ROFLUMILAST 500 MCG TABLET PO SCH (10:00)
[2017-06-14] MEDS: FOLIC ACID 1 MG TABLET PO SCH (10:01)
[2017-06-14] MEDS: ASCORBIC ACID 500 MG TABLET PO SCH (10:03)
[2017-06-14] MEDS: METOPROLOL SUCCINATE 50 MG TAB.SR.24H PO SCH (10:03)
[2017-06-14] MEDS: FERROUS SULFATE 325 MG TABLET PO SCH (10:03)
[2017-06-14] MEDS: MULTIVITAMIN TABLET PO SCH (10:03)
[2017-06-14] MEDS: GLIPIZIDE XL 2.5 MG TAB.ER.24 PO SCH (10:03)
[2017-06-14] MEDS: LEVOFLOXACIN 750 MG/D5W RTU 750 MG/150 ML RTUPB IV SCH (10:03)
[2017-06-14] MEDS: FLUTICASONE NASAL SPRAY 50 MCG/SPRY 120 SPRAY/16 GM NASL SCH (10:04)
--- NOTE | 2017-06-14 12:42 | PDOC PROGRESS REPORT ---
Subjective Progress Note for:: 06/14/17 Subjective:: a little better Reason For Visit: ACUTE HYPERCAPNEIC AND HYPOXIC RESP FAILURE Physical Exam Vital Signs: Temp Pulse Resp BP Pulse Ox 97.4 F 122 H 22 H 162/94 H 97 06/14/17 07:35 06/14/17 12:12 06/14/17 12:12 06/14/17 07:35 06/14/17 12:12 Intake & Output 06/13/17 06/14/17 06/15/17 06:59 06:59 06:59 Intake Total 1662 1134 Output Total 1250 300 Balance 412 834 Weight 65.1 kg 66.8 kg General appearance: PRESENT: no acute distress, cooperative, disheveled, thin. ABSENT: hard of hearing, mild distress, morbidly obese, obese, severe distress Head exam: PRESENT: atraumatic, normocephalic Eye exam: PRESENT: conjunctiva pale, EOMI. ABSENT: conjunctival injection, conjunctiva pink, nystagmus Mouth exam: PRESENT: dry mucosa, neck supple, tongue midline Neck exam: ABSENT: carotid bruit, JVD, lymphadenopathy, thyromegaly, tracheal deviation, tracheostomy Respiratory exam: PRESENT: decreased breath sounds, prolonged expiratory phas, rales, rhonchi, symmetrical, unlabored, wheezes. ABSENT: accessory muscle use, chest wall tenderness, clear to auscultation martínez, crackles, retraction, stridor , tachypnea Cardiovascular exam: PRESENT: RRR, +S1, +S2 Pulses: PRESENT: normal radial pulses GI/Abdominal exam: PRESENT: normal bowel sounds, soft. ABSENT: distended, guarding, mass, organolmegaly, rebound, tenderness Extremities exam: ABSENT: clubbing, joint swelling Musculoskeletal exam: PRESENT: ambulatory Neurological exam: PRESENT: alert, awake Skin exam: PRESENT: dry, warm Results Laboratory Results: 06/09/17 04:53 06/12/17 05:13 06/07/17 06/08/17 06/08/17 18:55 00:55 06:57 Troponin I 0.022 0.015 0.017 Impressions: Chest X-Ray 06/07/17 14:29 IMPRESSION: Chronic lung changes with no acute cardiopulmonary disease. Chest/Abdomen CTA 06/07/17 15:17 IMPRESSION: There is no evidence of pulmonary emboli. There is extensive pulmonary emphysema. Assessment & Plan - Diagnosis (1) Acute on chronic respiratory failure with hypoxia and hypercapnia Is this a current diagnosis for this admission?: Yes Plan: slowly improving (2) Anxiety Is this a current diagnosis for this admission?: Yes Plan: resume xanax avoid withdrawal and assist with anxiety (3) Atrial fibrillation and flutter Is this a current diagnosis for this admission?: Yes Plan: Generic Name Dose Route Start Last Admin Trade Name Freq PRN Reason Stop Dose Admin Diltiazem HCl 180 mg 06/08/17 10:00 06/11/17 09:50 Cardizem Cd 180 Mg Capsule PO 07/08/17 09:59 180 mg DAILY ANA Digoxin 0.125 mg 06/08/17 10:00 06/11/17 09:49 Lanoxin 0.125 Mg Tablet PO 07/08/17 09:59 0.125 mg DAILY ANA Metoprolol Succinate 50 mg 06/11/17 22:00 06/11/17 23:14 Toprol Xl 50 Mg Tab.Sr PO 07/11/17 21:59 50 mg Q12 ANA Metoprolol Tartrate 5 mg 06/09/17 09:21 06/11/17 06:44 Lopressor Inj/Pf 5 Mg/5 Ml Sdv IV 07/09/17 09:20 5 mg Q6HP PRN HR>100 consider decrease in beta petty increase in diltiazem and/or digoxin current dig level sub therapeutic
[2017-06-14 17:50] VITALS: BP 134/81
--- NOTE | 2017-06-14 20:48 | PDOC PROGRESS REPORT ---
Subjective Progress Note for:: 06/14/17 Subjective:: Discussed with Dr. Talbot this morning. Feel that patient will benefit from Roflumilast. After discussing with him have started patient on Roflumilast. Patient has had multiple admissions this year for COPD exacerbation. Patient also is noted to have severe COPD based on PFT function, this was related to me by Dr. Talbot. Patient complains of shortness of breath. This is chronic for this patient. Patient did not atrial flutter. Heart rate well controlled. Patient claims to be on Eliquis for this reason as an outpatient. Patient was recently seen in consultation. Patient also follows up with me in the office. Reason For Visit: ACUTE HYPERCAPNEIC AND HYPOXIC RESP FAILURE Physical Exam Vital Signs: Temp Pulse Resp BP Pulse Ox 97.4 F 75 29 H 134/81 H 95 06/14/17 17:48 06/14/17 17:48 06/14/17 17:48 06/14/17 17:48 06/14/17 17:48 Intake & Output 06/13/17 06/14/17 06/15/17 06:59 06:59 06:59 Intake Total 1662 1134 327 Output Total 1250 300 Balance 412 834 327 Weight 65.1 kg 66.8 kg Results Laboratory Results: 06/09/17 04:53 06/12/17 05:13 06/07/17 06/08/17 06/08/17 18:55 00:55 06:57 Troponin I 0.022 0.015 0.017 Impressions: Chest X-Ray 06/07/17 14:29 IMPRESSION: Chronic lung changes with no acute cardiopulmonary disease. Chest/Abdomen CTA 06/07/17 15:17 IMPRESSION: There is no evidence of pulmonary emboli. There is extensive pulmonary emphysema. Assessment & Plan - Diagnosis (1) Atrial fibrillation and flutter Is this a current diagnosis for this admission?: Yes (2) COPD exacerbation Is this a current diagnosis for this admission?: Yes (3) Acute and chronic respiratory failure with hypoxia Is this a current diagnosis for this admission?: Yes (4) Anxiety Is this a current diagnosis for this admission?: Yes (5) Sleep apnea syndrome Qualifiers: Sleep apnea type: unspecified type Qualified Code(s): G47.30 - Sleep apnea , unspecified Is this a current diagnosis for this admission?: Yes
--- NOTE | 2017-06-15 16:03 | PDOC DISCHARGE SUMMARY ---
General - Admit/Disc Date/PCP Admission Date/Primary Care Provider: 06/07/17 18:15 PAMELA HARRISON MD Discharge Date: 06/14/17 - Discharge Diagnosis (1) Acute on chronic respiratory failure with hypoxia and hypercapnia Is this a current diagnosis for this admission?: Yes (2) Acute bronchitis with COPD Is this a current diagnosis for this admission?: Yes (3) Anxiety Is this a current diagnosis for this admission?: Yes (4) Hypernatremia Is this a current diagnosis for this admission?: Yes (5) Leukopenia Is this a current diagnosis for this admission?: Yes (6) Atrial fibrillation Is this a current diagnosis for this admission?: Yes (7) Metabolic alkalosis with respiratory acidosis Is this a current diagnosis for this admission?: Yes - Additional Information Resuscitation Status: Full Code Discharge Diet: Diabetic Discharge Activity: Activity As Tolerated Prescriptions: Apixaban [Eliquis 5 mg Tablet] 5 mg PO BID 30 Days #60 tablet Levofloxacin [Levaquin 750 mg Tablet] 750 mg PO DAILY #7 tablet Methylprednisolone [Medrol Dosepack (4 mg/Tab) 21 Tab/Dosepak] 4 mg PO ASDIR # 21 tab.ds.pk Metoprolol Succinate [Toprol Xl] 50 mg PO DAILY 30 Days #60 tab.er.24h Sertraline HCl [Zoloft 50 mg Tablet] 25 mg PO DAILY #30 tablet Home Medications: Albuterol Sulfate [Proair HFA] 2 puff IN Q4 06/07/17 Ascorbic Acid [Vitamin C 500 mg Tablet] 500 mg PO DAILY 06/07/17 Budesonide/Formoterol Fumarate [Symbicort 160-4.5 Mcg Inhaler] 2 puff IN Q12 Digoxin [Lanoxin] 125 mcg PO DAILY 06/07/17 Diltiazem HCl [Cartia Xt] 180 mg PO DAILY 06/07/17 Ferrous Sulfate [Iron] 325 mg PO DAILY 06/07/17 Fluticasone Propionate [Flonase Allergy Relief] 2 spray NASL DAILY 06/07/17 Folic Acid 1 mg PO DAILY 06/07/17 Furosemide [Lasix 40 mg Tablet] 40 mg PO DAILY 06/07/17 Glipizide [Glipizide ER] 2.5 mg PO DAILY 06/07/17 Ipratropium/Albuterol Sulfate [Duoneb 3 ml Ampul] 3 ml IN RTQ6 06/07/17 Potassium Chloride [Klor-Con M20] 20 meq PO DAILY 06/07/17 Tiotropium Clemons [Spiriva Handihaler 18 mcg/dose (30 Dose)] 1 puff IN DAILY Apixaban [Eliquis 5 mg Tablet] 5 mg PO BID 30 Days #60 tablet 06/14/17 Levofloxacin [Levaquin 750 mg Tablet] 750 mg PO DAILY #7 tablet 06/14/17 Methylprednisolone [Medrol Dosepack (4 mg/Tab) 21 Tab/Dosepak] 4 mg PO ASDIR # 21 tab.ds.pk 06/14/17 Metoprolol Succinate [Toprol Xl] 50 mg PO DAILY 30 Days #60 tab.er.24h 06/14/17 Sertraline HCl [Zoloft 50 mg Tablet] 25 mg PO DAILY #30 tablet 06/14/17 History of Present Illness History of Present Illness: ANGELINA VALERIO is a 56 year old female with advanced COPD who presented with complaint of shortness of breath. Please refer to H&P dictated by Dr. Jj Donovan for complete details. Hospital Course Hospital Course: Presented with COPD exacerbation. She had acute on chronic hypoxic hypercapnic respiratory failure for which she was on BiPAP. Patient blood gases did improve. Patient was continued on steroids antibiotics nebs and Mucomyst which seem to be helping her. Patient was showing some improvement however patient appears to have advanced lung disease. Patient was evaluated by Dr. Talbot her headrig sawyer while in the hospital some adjustments were made to her medications. Patient presented with acute bronchitis with COPD. Patient sputum was growing Pseudomonas for which patient was initially refused to be treated with Levaquin but then agreed to it. Patient will be discharged home on Levaquin. Patient could not tolerate Tobra nebs as a cause her to have severe bronchospasms. Patient has severe anxiety but did not want to take Klonopin. Patient is agreeable to taking Zoloft. Patient also had hypernatremia which resolved with fluid resuscitation. This is possibly secondary to dehydration. Has some leukopenia while in the hospital could be due to a virus however resolved on follow up CBCs. Patient also had atrial flutter however she does have a history of A. fib a flutter. Patient rate was better controlled with the increase of her metoprolol to 50 mg p.o. twice daily. Patient was continued on her diltiazem and digoxin. Patient was also continued on Eliquis however her dose was increased to 5 mg p.o. twice daily. She was evaluated by Dr. Grover who felt that her cardiac arrhythmia was being triggered by her respiratory compromise. Patient rate did become better controlled during the following days of her hospitalization. Patient did have come 10-20 metabolic alkalosis in response to her respiratory acidosis. Patient did ambulate late with PT using her oxygen and did quite well. Patient was referred to pulmonary rehab where they can teach her energy conservation strategies while ambulating. Patient is agreeable to following what she is told to do as she wants to get better. Patient is anxious to go home stating that she has to move from where she lives to another apartment building within the complex. Physical Exam Vital Signs: Temp Pulse Resp BP Pulse Ox 97.4 F 75 29 H 134/81 H 95 06/14/17 17:48 06/14/17 17:48 06/14/17 17:48 06/14/17 17:48 06/14/17 17:48 Intake & Output 06/14/17 06/15/17 06/16/17 06:59 06:59 06:59 Intake Total 1134 327 Output Total 300 Balance 834 327 Weight 66.8 kg General appearance: PRESENT: no acute distress, well-developed, well-nourished Head exam: PRESENT: normocephalic Eye exam: PRESENT: EOMI. ABSENT: scleral icterus Mouth exam: PRESENT: moist Neck exam: ABSENT: carotid bruit, JVD, lymphadenopathy, thyromegaly Respiratory exam: PRESENT: clear to auscultation martínez, decreased breath sounds - Inspiratory breath sounds heard however expiratory breath sounds are faint. ABSENT: rales, rhonchi, wheezes Cardiovascular exam: PRESENT: RRR. ABSENT: diastolic murmur, rubs, systolic murmur Pulses: PRESENT: normal dorsalis pedis pul Vascular exam: PRESENT: normal capillary refill GI/Abdominal exam: PRESENT: normal bowel sounds, soft. ABSENT: distended, guarding, mass, organolmegaly, rebound, tenderness Rectal exam: PRESENT: deferred Extremities exam: PRESENT: full ROM. ABSENT: calf tenderness, clubbing, pedal edema Neurological exam: PRESENT: alert, awake, oriented to person, oriented to place , oriented to time, oriented to situation, CN II-XII grossly intact. ABSENT: motor sensory deficit Psychiatric exam: PRESENT: appropriate affect, normal mood. ABSENT: homicidal ideation, suicidal ideation Skin exam: PRESENT: dry, intact, warm. ABSENT: cyanosis, rash Results Laboratory Results: 06/09/17 04:53 06/12/17 05:13 06/07/17 06/08/17 06/08/17 18:55 00:55 06:57 Troponin I 0.022 0.015 0.017 Impressions: Chest X-Ray 06/07/17 14:29 IMPRESSION: Chronic lung changes with no acute cardiopulmonary disease. Chest/Abdomen CTA 06/07/17 15:17 IMPRESSION: There is no evidence of pulmonary emboli. There is extensive pulmonary emphysema. Qualifiers PATEINT BEING DISCHARGED WITH ANY OF THE FOLLOWING DIAGNOSIS?: No Plan Time Spent: Greater than 30 Minutes
== END 2017-06-14 18:38 | disposition home health service (06) | DRG 190 ==
LOC: ER 14:23 → EH 18:15 → 3W 20:02
PROVIDERS: ADMIT Internal Medicine; ATTEND Internal Medicine
PROC: 5A09557 Assistance with Respiratory Ventilation, Greater than 96 Consecutive Hours, Continuous Positive Airway Pressure (ICD-10-PCS; principal; 2017-06-07)
PROC: 3E0F73Z Introduction of Anti-inflammatory into Respiratory Tract, Via Natural or Artificial Opening (ICD-10-PCS; 2017-06-09)
DX: J43.9 Emphysema, unspecified (principal); J96.01 Acute respiratory failure with hypoxia; J96.02 Acute respiratory failure with hypercapnia; E87.0 Hyperosmolality and hypernatremia; E87.4 Mixed disorder of acid-base balance; I48.92 Unspecified atrial flutter; J44.0 Chronic obstructive pulmonary disease with (acute) lower respiratory infection; J20.9 Acute bronchitis, unspecified; F41.9 Anxiety disorder, unspecified; D72.819 Decreased white blood cell count, unspecified; B96.5 Pseudomonas (aeruginosa) (mallei) (pseudomallei) as the cause of diseases classified elsewhere; E86.0 Dehydration; I11.0 Hypertensive heart disease with heart failure; I50.9 Heart failure, unspecified; E09.9 Drug or chemical induced diabetes mellitus without complications; T38.0X5A Adverse effect of glucocorticoids and synthetic analogues, initial encounter; I48.2 Chronic atrial fibrillation; M19.90 Unspecified osteoarthritis, unspecified site; D64.9 Anemia, unspecified; Z88.3 Allergy status to other anti-infective agents; I25.2 Old myocardial infarction; Z99.81 Dependence on supplemental oxygen; Z79.899 Other long term (current) drug therapy; Z87.820 Personal history of traumatic brain injury; Z87.891 Personal history of nicotine dependence; Z82.49 Family history of ischemic heart disease and other diseases of the circulatory system; Z83.6 Family history of other diseases of the respiratory system
CPT/HCPCS: 36415; 36600; 71010; 71020; 71275; 80048; 80053; 80162; 82550; 82803; 82962; 83605; 83690; 83735; 83880; 84484; 85025; 85610; 85730; 87040; 87070; 87077; 87186; 87205; 93005; 93010; 94640; 94660; 99291; G8978-GP; G8979-GP; J0456; J1815; J1956; J2060; J2930; J3490; J7060; J7120; J7620

== ENCOUNTER 2017-06-28 20:50 | Inpatient (IN) | payer MEDICARE, MEDICAID ==
--- NOTE | 2017-06-28 20:57 | ER Document Report ---
ED Respiratory Problem - General Mode of Arrival: Ambulatory Information source: Patient TRAVEL OUTSIDE OF THE [place] IN LAST 30 DAYS: No <JD LOPEZ - Last Filed: 06/29/17 02:56> <TEJAL PANDYA - Last Filed: 06/29/17 04:27> - General Stated Complaint: DIFFICULTY BREATHING Notes: Patient is a 56-year-old female presents to the emergency department today with complaints of shortness of breath. EMS states that the patient was saturating on 79% on BiPAP on their arrival. Patient is on 40 mg Lasix but she says her leg swelling has increased in the last few days. Patient states she has a cough but she has a cough "all the time". Patient denies a fever or chest pain. (JD LOPEZ) - Related Data Allergies/Adverse Reactions: erythromycin base [Erythromycin Base] Allergy (Mild, Verified 04/29/17 15:15) Past Medical History - General Information source: Patient, [facility] Records - Social History Smoking Status: Former Smoker Cigarette use (# per day): No Frequency of alcohol use: None Drug Abuse: None Lives with: Family Family History: Reviewed & Not Pertinent, CAD, COPD, Hypertension - Past Medical History Cardiac Medical History: Reports: Hx Atrial Fibrillation, Hx Congestive Heart Failure, Hx Heart Attack, Hx Hypertension Pulmonary Medical History: Reports: Hx COPD, Hx Pneumonia Endocrine Medical History: Reports: 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 Musculoskeltal Medical History: Reports Hx Arthritis Traumatic Medical History: Reports: Hx Traumatic Brain Injury Past Surgical History: Reports: Hx Cardiac Catheterization, Hx Section - Immunizations Immunizations up to date: Yes Hx Diphtheria, Pertussis, Tetanus Vaccination: Yes Hx Pneumococcal Vaccination: 05/18/12 <JD LOPEZ - Last Filed: 06/29/17 02:56> Review of Systems - Review of Systems Constitutional: denies: Fever EENT: No symptoms reported Cardiovascular: denies: Chest pain Respiratory: See HPI, Cough, Short of breath Gastrointestinal: No symptoms reported Genitourinary: No symptoms reported Female Genitourinary: No symptoms reported Musculoskeletal: See HPI, Leg swelling Skin: No symptoms reported Hematologic/Lymphatic: No symptoms reported Neurological/Psychological: No symptoms reported -: Yes All other systems reviewed and negative <JD LOPEZ - Last Filed: 06/29/17 02:56> Physical Exam <JD LOPEZ - Last Filed: 06/29/17 02:56> <TEJAL PANDYA - Last Filed: 06/29/17 04:27> - Vital signs Vitals: Pulse Resp BP Pulse Ox 90 24 H 131/67 H 100 06/28/17 20:50 06/28/17 20:50 06/28/17 20:50 06/28/17 20:50 - Notes Notes: Physical Exam: General: Alert, moderate distress. HEENT: Normocephalic. Atraumatic. PERRL. Extraocular movements intact. Oropharynx clear. Neck: Supple. Non-tender. Respiratory: Moderate respiratory distress. Poor air movement throughout. Cardiovascular: Regular rate and rhythm. Abdominal: Normal Inspection. Non-tender. No distension. Normal Bowel Sounds. Back: Non-tender. No deformity or step off. Extremities: Moves all four extremities. Upper extremities: Normal inspection. Normal ROM. Lower extremities: Mild trace pitting edema bilaterally. Normal ROM. Neurological: Normal cognition. AAOx4. Normal speech. Psychological: Normal affect. Normal Mood. Skin: Warm. Dry. Normal color. (JD LOPEZ) Course - Laboratory Result Diagrams: 06/28/17 22:05 06/28/17 21:25 <JD LOPEZ - Last Filed: 06/29/17 02:56> - Laboratory Result Diagrams: 06/28/17 22:05 06/28/17 21:25 <TEJAL PANDYA - Last Filed: 06/29/17 04:27> - Re-evaluation Re-evalutation: 06/29/17 Patient is a 56-year-old female who comes in complaining of difficulty breathing. Oxygen saturation was 79% on home BiPAP. Improved here. Patient has received Solu-Medrol, DuoNeb, Nitropaste on the way in. She has had some leg swelling recently. His Lasix at home daily. Has been given 40 of Lasix here. Patient is not wheezing and has been resting comfortably on BiPAP for me. No acute findings on chest x-ray. She will be admitted to the hospital service for further workup of hypoxemia this evening. (TEJAL PANDYA) - Vital Signs Vital signs: Temp Pulse Resp BP Pulse Ox 98.1 F 85 21 H 99/56 L 97 06/29/17 00:55 06/29/17 02:20 06/29/17 03:01 06/29/17 03:00 06/29/17 03:01 - Laboratory Laboratory results interpreted by me: 06/28/17 06/28/17 06/28/17 21:25 22:05 22:05 Hgb 9.5 L Hct 30.5 L MCH 24.9 L MCHC 31.2 L RDW 19.5 H Seg Neuts % (Manual) 89 H Lymphocytes % (Manual) 4 L Abs Lymphs (Manual) 0.3 L Sodium 146.2 H Carbon Dioxide 32 H Glucose 127 H Lactic Acid 0.6 L Total Protein 5.5 L Albumin 3.1 L Discharge <JD LOPEZ - Last Filed: 06/29/17 02:56> - Discharge Admitting Provider: Hospitalist - [facility] Admitted: Telemetry <TEJAL PANDYA - Last Filed: 06/29/17 04:27> - Discharge Clinical Impression: Acute and chronic respiratory failure with hypoxia, COPD exacerbation Congestive heart failure Qualifiers: Congestive heart failure type: unspecified Congestive heart failure chronicity : acute on chronic Qualified Code(s): I50.9 - Heart failure, unspecified Condition: Stable Disposition: ADMITTED INPATIENT Scribe Attestation: 06/29/17 04:27 I personally performed the services described in the documentation, reviewed and edited the documentation which was dictated to the scribe in my presence, and it accurately records my words and actions. (TEJAL PANDYA) Scribe Documentation - Scribe Written by Prieto:: Prieto Kyle, 06/29/2017 [id number] acting as scribe for :: Janene <JD LOPEZ - Last Filed: 06/29/17 02:56>
--- NOTE | 2017-06-28 21:32 | RADIOLOGY REPORT (SQ) ---
EXAM DESCRIPTION: CHEST SINGLE VIEW COMPLETED DATE/TIME: 06/28/2017 9:19 pm REASON FOR STUDY: difficulty breathing COMPARISON: None. EXAM PARAMETERS: NUMBER OF VIEWS: One view. TECHNIQUE: Single frontal radiographic view of the chest acquired. RADIATION DOSE: NA LIMITATIONS: None. FINDINGS: LUNGS AND PLEURA: No opacities, masses or pneumothorax. No pleural effusion. MEDIASTINUM AND HILAR STRUCTURES: No masses. Contour normal. HEART AND VASCULAR STRUCTURES: Heart normal in size. Normal vasculature. BONES: No acute findings. HARDWARE: None in the chest. OTHER: No other significant finding. IMPRESSION: NO ACUTE RADIOGRAPHIC FINDING IN THE CHEST. TECHNICAL DOCUMENTATION: JOB ID: [id number] [employer]- All Rights Reserved
[2017-06-28 22:25] LABS: ALANINE AMINOTRANSFERASE 31 U/L (9-52); ALBUMIN 3.1 g/dL (3.5-5.0); ALKALINE PHOSPHATASE 87 U/L (38-126); ANION GAP 9 (5-19); ASPARTATE AMINO TRANSFERASE 26 U/L (14-36); BILIRUBIN,DIRECT 0.3 mg/dL (0.0-0.4); BILIRUBIN,TOTAL 0.4 mg/dL (0.2-1.3); BLOOD UREA NITROGEN 11 mg/dL (7-20); CALCIUM 8.9 mg/dL (8.4-10.2); CARBON DIOXIDE 32 mmol/L (22-30); CHLORIDE 105 mmol/L (98-107); CREATINE KINASE 54 U/L (30-135); GLUCOSE 127 mg/dL (75-110); POTASSIUM 3.8 mmol/L (3.6-5.0); SODIUM 146.2 mmol/L (137-145); TOTAL PROTEIN 5.5 g/dL (6.3-8.2)
[2017-06-28 22:27] LABS: HEMATOCRIT 30.5 % (36.0-47.0); HEMOGLOBIN 9.5 g/dL (12.0-15.5); MEAN CORPUSCULAR HEMOGLOBIN 24.9 pg (27.0-33.4); MEAN CORPUSCULAR HGB CONC 31.2 g/dL (32.0-36.0); MEAN CORPUSCULAR VOLUME 80 fl (80-97); PLATELET COUNT 160 10^3/uL (150-450); RED BLOOD COUNT 3.82 10^6/uL (3.72-5.28); RED CELL DISTRIBUTION WIDTH 19.5 % (11.5-14.0); WHITE BLOOD COUNT 8.1 10^3/uL (4.0-10.5)
[2017-06-28 22:43] LABS: CREATINE KINASE MB 0.93 ng/mL (<4.55); TROPONIN I 0.03 ng/mL
[2017-06-28 22:48] LABS: ABSOLUTE LYMPHOCYTES# (MANUAL) 0.3 10^3/uL (0.5-4.7); ABSOLUTE MONOCYTES # (MANUAL) 0.6 10^3/uL (0.1-1.4); ABSOLUTE NEUTROPHILS# (MANUAL) 7.2 10^3/uL (1.7-8.2); BASOPHILS % (MANUAL) 0 % (0-2); EOSINOPHILS % (MANUAL) 0 % (0-6); LYMPHOCYTES % (MANUAL) 4 % (13-45); MONOCYTES % (MANUAL) 7 % (3-13); SEGMENTED NEUTROPHILS % (MAN) 89 % (42-78); TOTAL CELLS COUNTED 100
[2017-06-28 22:49] LABS: ANISOCYTOSIS 2+; HYPOCHROMASIA SLIGHT; PLATELET COMMENT ADEQUATE; POIKILOCYTOSIS 1+; TOXIC GRANULATION SLIGHT
[2017-06-28 23:00] LABS: VENOUS BLOOD BASE EXCESS 2.2 mmol/L; VENOUS BLOOD HCO3 29.3 mmol/L (20-32); VENOUS BLOOD PCO2 55.9 mmHg (35-63); VENOUS BLOOD PH 7.34 (7.30-7.42)
[2017-06-28] MEDS ORDERED: FUROSEMIDE INJ/PF 40 MG/4 ML SDV IV ONE (23:04)
[2017-06-29] MEDS ORDERED: LEVALBUTEROL HCL NEB 1.25 MG/3 ML AMPUL NEB PRN (00:32)
[2017-06-29 01:00] LABS: APPEARANCE,URINE SLIGHTLY-CLOUDY; BILIRUBIN,URINE NEGATIVE (NEGATIVE); COLOR,URINE YELLOW; GLUCOSE, URINE NEGATIVE (NEGATIVE); KETONES,URINE NEGATIVE (NEGATIVE); LEUKOCYTE ESTERASE,URINE NEGATIVE (NEGATIVE); NITRITE,URINE NEGATIVE (NEGATIVE); PROTEIN,URINE 100 mg/dL (NEGATIVE); UROBILINOGEN,URINE NEGATIVE mg/dL (<2.0)
[2017-06-29] MEDS ORDERED: LEVOFLOXACIN 750 MG TABLET PO ONE (01:00)
[2017-06-29] MEDS: IPRATROPIUM/ALBUTEROL 0.5-2.5 MG/3 ML AMPUL NEB SCH ×4 (02:17→20:07)
[2017-06-29 04:25] LABS: CREATINE KINASE MB 1.37 ng/mL (<4.55); TROPONIN I 0.029 ng/mL
[2017-06-29] MEDS: NITROGLYCERIN 2% OINTMENT 1 GM PACKET TP SCH ×4 (05:59→23:14)
--- NOTE | 2017-06-29 07:46 | PDOC H&P ---
History of Present Illness Admission Date/PCP: 06/28/17 23:54 JUVENAL OROPEZA MD History of Present Illness: TERE VALERIO is a 56 year old femaleWith past medical history of a flutter, congestive heart failure, pulmonary hypertension, end-stage COPD, who presents to the emergency department because of shortness of breath. EMS reported that she was saturating 97% on BiPAP at home. Patient reported increased leg swelling the last several days. She reports she is a cough that she has been having a cough all the time. She does report that she has been coughing up whitish green sputum. She reports that she has been getting worse over the last several days after her antibiotic and steroid have been stopped. She was given initially IV Lasix with some improvement of her shortness of breath. She is referred to the hospital service for combined COPD/CHF exacerbation and acute on chronic hypoxemic respiratory failure. Patient's medications are currently undergoing reconciliation. Current list is automatically generated by [employer] and does not reflect an accurate description of her medications. Due to the urgent/emergent nature of her condition, she is admitted without a full list. 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 GI Medical History: Denies: Cirrhosis, Crohn's Disease, Ulcerative Colitis Musculoskeltal Medical History: Reports: Arthritis Denies: Gout Skin Medical History: Denies: Psoriasis Psychiatric Medical History: Denies: Depression Traumatic Medical History: Reports: Traumatic Brain Injury Hematology: Reports: Anemia Denies: Sickle Cell Disease Past Surgical History Past Surgical History: Reports: Cardiac Catheterization, Section Social History Lives with: Family Smoking Status: Former Smoker Frequency of Alcohol Use: None Hx Recreational Drug Use: No Drugs: None Hx Prescription Drug Abuse: No - Advance Directive Resuscitation Status: Full Code Surrogate healthcare decision maker:: Son Family History Family History: CAD, COPD, Hypertension Parental Family History Reviewed: Yes Children Family History Reviewed: Yes Sibling(s) Family History Reviewed.: Yes Medication/Allergy Allergies/Adverse Reactions: erythromycin base [Erythromycin Base] Allergy (Mild, Verified 06/29/17 07:01) Review of Systems Constitutional: ABSENT: chills, fever(s), headache(s), weight gain, weight loss Eyes: ABSENT: visual disturbances Ears: ABSENT: hearing changes Cardiovascular: PRESENT: dyspnea on exertion, edema. ABSENT: chest pain, orthropnea, palpitations Respiratory: PRESENT: cough, dyspnea, sputum. ABSENT: hemoptysis Gastrointestinal: ABSENT: abdominal pain, constipation, diarrhea, hematemesis, hematochezia, melena, nausea, vomiting Genitourinary: ABSENT: dysuria, hematuria Musculoskeletal: ABSENT: joint swelling Integumentary: ABSENT: rash, wounds Neurological: ABSENT: abnormal gait, abnormal speech, confusion, dizziness, focal weakness, syncope Psychiatric: ABSENT: anxiety, depression, homidical ideation, suicidal ideation Endocrine: ABSENT: cold intolerance, heat intolerance, polydipsia, polyuria Hematologic/Lymphatic: ABSENT: easy bleeding, easy bruising Physical Exam Vital Signs: Temp Pulse Resp BP Pulse Ox 98.1 F 90 26 H 153/131 H 99 06/29/17 00:55 06/28/17 20:50 06/29/17 01:01 06/29/17 01:00 06/29/17 01:01 Intake & Output 06/27/17 06/28/17 06/29/17 06:59 06:59 06:59 Output Total 650 Balance -650 General appearance: PRESENT: severe distress, well-developed, well-nourished Head exam: PRESENT: atraumatic, normocephalic Eye exam: PRESENT: conjunctiva pink, EOMI, PERRLA. ABSENT: scleral icterus Ear exam: PRESENT: normal external ear exam Mouth exam: PRESENT: moist, tongue midline Neck exam: ABSENT: JVD, lymphadenopathy, thyromegaly, tracheal deviation Respiratory exam: PRESENT: accessory muscle use, decreased breath sounds, prolonged expiratory phas, symmetrical, tachypnea, wheezes, other - Generalized poor air excursion, modified tripod position. ABSENT: rales, rhonchi, unlabored Cardiovascular exam: PRESENT: irregular rhythm, +S1, +S2, systolic murmur. ABSENT: diastolic murmur, rubs Pulses: PRESENT: normal dorsalis pedis pul Vascular exam: PRESENT: normal capillary refill GI/Abdominal exam: PRESENT: normal bowel sounds, soft. ABSENT: distended, guarding, mass, organolmegaly, rebound, tenderness Rectal exam: PRESENT: deferred Extremities exam: PRESENT: clubbing, full ROM, +1 edema. ABSENT: calf tenderness Neurological exam: PRESENT: alert, awake, oriented to person, oriented to place , oriented to time, oriented to situation, CN II-XII grossly intact. ABSENT: motor sensory deficit Psychiatric exam: PRESENT: appropriate affect, normal mood. ABSENT: homicidal ideation, suicidal ideation Skin exam: PRESENT: dry, intact, warm. ABSENT: cyanosis, rash Results Laboratory Results: 06/29/17 00:02 Urine Color YELLOW Urine Appearance SLIGHTLY-CLOUDY Urine pH 5.0 Ur Specific [place] 1.020 Urine Protein 100 H Urine Glucose (UA) NEGATIVE Urine Ketones NEGATIVE Urine Blood NEGATIVE Urine Nitrite NEGATIVE Ur Leukocyte Esterase NEGATIVE Urine WBC (Auto) 1 Urine RBC (Auto) 9 Impressions: Chest X-Ray 06/28/17 20:55 IMPRESSION: NO ACUTE RADIOGRAPHIC FINDING IN THE CHEST. Assessment & Plan - Diagnosis (1) COPD exacerbation Is this a current diagnosis for this admission?: Yes Plan: Place patient on scheduled nebulized treatments and re-evaluate for improvement. PRN Xopenex Place patient on IV Solu-Medrol Obtain sputum culture Encourage smoking cessation (2) Congestive heart failure Qualifiers: Congestive heart failure type: unspecified Congestive heart failure chronicity: acute on chronic Qualified Code(s): I50.9 - Heart failure, unspecified Is this a current diagnosis for this admission?: Yes Plan: Currently volume overloaded Place patient on IV Lasix Continue Eliquis, aspirin, digoxin, diltiazem. Consider at ISREAL/ARB No beta-petty secondary to severe bronchospastic disease (3) Acute on chronic respiratory failure with hypoxia and hypercapnia Is this a current diagnosis for this admission?: Yes Plan: BiPAP (4) Anemia Qualifiers: Anemia type: unspecified type Qualified Code(s): D64.9 - Anemia, unspecified Is this a current diagnosis for this admission?: Yes (5) Anxiety Is this a current diagnosis for this admission?: Yes (6) Atrial fibrillation Qualifiers: Atrial fibrillation type: chronic Qualified Code(s): I48.2 - Chronic atrial fibrillation Is this a current diagnosis for this admission?: Yes (7) Diabetes Qualifiers: Diabetes mellitus type: type 2 Is this a current diagnosis for this admission?: Yes (8) HBP (high blood pressure) Is this a current diagnosis for this admission?: Yes - Time Time Spent: 30 to 50 Minutes Medications reviewed and adjusted accordingly: Yes
--- NOTE | 2017-06-29 07:56 | EKG REPORT ---
SEVERITY:- ABNORMAL ECG - SINUS RHYTHM FIRST DEGREE AV BLOCK : Confirmed by: Ian Gutierrez MD 29-Jun-2017 07:55:56
[2017-06-29 09:55] LABS: CREATINE KINASE MB 1.48 ng/mL (<4.55); TROPONIN I 0.02 ng/mL
[2017-06-29] MEDS ORDERED: (PENDING PHARMACY ID) (Potassium Chloride [Klor-Con M20] 20 MEQ) PO SCH (10:00)
[2017-06-29] MEDS ORDERED: ENOXAPARIN SODIUM INJ 40 MG/0.4 ML DISP.SYRIN SUBCUT SCH (10:00)
[2017-06-29] MEDS ORDERED: BUDESONIDE/FORMOTEROL 160-4.5 MCG 60 PUFF/6 GM MDI IH SCH (10:00)
[2017-06-29] MEDS: FUROSEMIDE INJ/PF 40 MG/4 ML SDV IV SCH ×2 (10:43→21:42)
[2017-06-29] MEDS: ASPIRIN 81 MG TABLET, ENT COATED PO SCH (10:56)
[2017-06-29] MEDS: MULTIVITAMIN TABLET PO SCH (10:56)
[2017-06-29] MEDS: SERTRALINE HCL 50 MG TABLET PO SCH (10:57)
[2017-06-29] MEDS: METOPROLOL SUCCINATE 50 MG TAB.SR.24H PO SCH (10:57)
[2017-06-29] MEDS: FUROSEMIDE 40 MG TABLET PO SCH (10:57)
[2017-06-29] MEDS: FERROUS SULFATE 325 MG TABLET PO SCH (10:58)
[2017-06-29] MEDS: FOLIC ACID 1 MG TABLET PO SCH (10:58)
[2017-06-29] MEDS: DILTIAZEM HCL 180 MG CAPSULE.CR PO SCH (10:58)
[2017-06-29] MEDS: POTASSIUM CHLORIDE 10 MEQ TABLET.SA PO SCH (11:01)
[2017-06-29] MEDS: GUAIFENESIN 600 MG TABLET.SA PO SCH ×2 (11:01→21:45)
[2017-06-29] MEDS: GLIPIZIDE XL 2.5 MG TAB.ER.24 PO SCH (11:01)
[2017-06-29] MEDS: DIGOXIN 0.125 MG TABLET PO SCH (11:06)
[2017-06-29] MEDS: APIXABAN 5 MG TABLET PO SCH ×2 (11:06→18:55)
[2017-06-29] MEDS: METHYLPREDNISOLONE INJ 40 MG/1 ML SDV IV SCH ×2 (13:43→21:41)
[2017-06-29 17:17] LABS: CREATINE KINASE MB 1.27 ng/mL (<4.55); TROPONIN I 0.016 ng/mL
[2017-06-29] MEDS: BUDESONIDE NEB 0.5 MG/2 ML AMPUL NEB SCH (20:07)
[2017-06-29] MEDS: LEVOFLOXACIN 750 MG TABLET PO SCH (21:45)
[2017-06-30] MEDS: IPRATROPIUM/ALBUTEROL 0.5-2.5 MG/3 ML AMPUL NEB SCH ×4 (01:56→20:07)
[2017-06-30 04:33] LABS: HEMOGLOBIN 9.7 g/dL (12.0-15.5); MEAN CORPUSCULAR HGB CONC 31.2 g/dL (32.0-36.0); MEAN CORPUSCULAR VOLUME 80 fl (80-97); PLATELET COUNT 197 10^3/uL (150-450); RED BLOOD COUNT 3.87 10^6/uL (3.72-5.28); RED CELL DISTRIBUTION WIDTH 19.2 % (11.5-14.0)
[2017-06-30 04:55] LABS: ABSOLUTE LYMPHOCYTES# (MANUAL) 0.1 10^3/uL (0.5-4.7); ABSOLUTE MONOCYTES # (MANUAL) 0.1 10^3/uL (0.1-1.4); ABSOLUTE NEUTROPHILS# (MANUAL) 6.7 10^3/uL (1.7-8.2); BAND NEUTROPHILS % (MANUAL) 1 % (3-5); BASOPHILS % (MANUAL) 0 % (0-2); EOSINOPHILS % (MANUAL) 0 % (0-6); LYMPHOCYTES % (MANUAL) 2 % (13-45); MONOCYTES % (MANUAL) 2 % (3-13); SEGMENTED NEUTROPHILS % (MAN) 95 % (42-78); TOTAL CELLS COUNTED 100
[2017-06-30 04:57] LABS: POLYCHROMASIA SLIGHT
[2017-06-30 04:58] LABS: ANISOCYTOSIS 2+; HYPOCHROMASIA 1+; OVALOCYTES SLIGHT; PLATELET COMMENT ADEQUATE; POIKILOCYTOSIS 1+
[2017-06-30 05:00] LABS: ANION GAP 7 (5-19); BLOOD UREA NITROGEN 20 mg/dL (7-20); CALCIUM 9.4 mg/dL (8.4-10.2); CARBON DIOXIDE 36 mmol/L (22-30); CHLORIDE 98 mmol/L (98-107); GLUCOSE 381 mg/dL (75-110); MAGNESIUM 1.9 mg/dL (1.6-2.3); POTASSIUM 4.1 mmol/L (3.6-5.0); SODIUM 141.2 mmol/L (137-145)
[2017-06-30] MEDS: NITROGLYCERIN 2% OINTMENT 1 GM PACKET TP SCH (06:30)
[2017-06-30] MEDS: METHYLPREDNISOLONE INJ 40 MG/1 ML SDV IV SCH ×3 (06:32→22:26)
[2017-06-30] MEDS: BUDESONIDE NEB 0.5 MG/2 ML AMPUL NEB SCH ×2 (08:07→20:07)
[2017-06-30] MEDS: FOLIC ACID 1 MG TABLET PO SCH (09:16)
[2017-06-30] MEDS: POTASSIUM CHLORIDE 10 MEQ TABLET.SA PO SCH (09:16)
[2017-06-30] MEDS: FERROUS SULFATE 325 MG TABLET PO SCH (09:16)
[2017-06-30] MEDS: APIXABAN 5 MG TABLET PO SCH ×2 (09:16→18:12)
[2017-06-30] MEDS: FUROSEMIDE 40 MG TABLET PO SCH ×2 (09:16→18:12)
[2017-06-30] MEDS: DIGOXIN 0.125 MG TABLET PO SCH (09:17)
[2017-06-30] MEDS: ASPIRIN 81 MG TABLET, ENT COATED PO SCH (09:17)
[2017-06-30] MEDS: METOPROLOL SUCCINATE 50 MG TAB.SR.24H PO SCH (09:17)
[2017-06-30] MEDS: SERTRALINE HCL 50 MG TABLET PO SCH (09:17)
[2017-06-30] MEDS: MULTIVITAMIN TABLET PO SCH (09:17)
[2017-06-30] MEDS: DILTIAZEM HCL 180 MG CAPSULE.CR PO SCH (09:18)
[2017-06-30] MEDS: GLIPIZIDE XL 2.5 MG TAB.ER.24 PO SCH (09:20)
[2017-06-30] MEDS: GUAIFENESIN 600 MG TABLET.SA PO SCH ×2 (09:23→22:33)
[2017-06-30] MEDS: ACETAMINOPHEN 325 MG TABLET PO PRN (11:21)
[2017-06-30] MEDS ORDERED: DEXTROSE 50%-WATER 25 GM/50 ML DISP.SYRIN IV PRN ×2 (12:17)
[2017-06-30] MEDS ORDERED: DEXTROSE 40% GEL 15 GM TUBE PO PRN ×2 (12:17)
[2017-06-30] MEDS ORDERED: GLUCAGON,HUMAN RECOMB 1 MG INJ IM PRN (12:17)
[2017-06-30] MEDS: INSULIN LISPRO 100 UNIT/ML 3 ML VIAL SUBCUT PRN ×2 (13:28→18:12)
--- NOTE | 2017-06-30 15:48 | PDOC PROGRESS REPORT ---
Subjective Progress Note for:: 06/29/17 Subjective:: Patient with a history of a flutter, congestive heart failure, pulmonary hypertension and end-stage COPD presented with shortness of breath patient admitted for COPD CHF exacerbation patient diuresed over 2 L. States that she can breathe better. She is still having difficulty getting the air in however she can breathe out quite well. Reason For Visit: ACUTE HYPOXEMIC RESPIRATORY FAILURE, COPD Physical Exam Vital Signs: Temp Pulse Resp BP Pulse Ox 97.6 F 70 22 H 135/73 H 100 06/29/17 20:09 06/29/17 20:09 06/29/17 20:09 06/29/17 20:09 06/29/17 20:09 Pulse Oximeter Continuous Start: 06/29/17 00: 33 Freq: RTQ4 Status: Active Document 06/29/17 20:07 EAL (Rec: 06/29/17 21:41 EAL [email or web address]) Pulse Oximetry Assessment Oxygen Saturation (92-100) 97 Oxygen Delivery Method Bi-pap Fraction of Inspired Oxygen (FIO2) 28 Equipment Usage Equipment in Use Continuous SpO2 Machine # 10 Intake & Output 06/28/17 06/29/17 06/30/17 06:59 06:59 06:59 Intake Total 250 584 Output Total 1325 900 Balance -1075 -316 Weight 130 kg General appearance: PRESENT: no acute distress, thin, well-developed, well- nourished Head exam: PRESENT: normocephalic Eye exam: PRESENT: EOMI. ABSENT: scleral icterus Ear exam: PRESENT: normal external ear exam Mouth exam: PRESENT: moist Neck exam: ABSENT: carotid bruit, JVD, lymphadenopathy, thyromegaly Respiratory exam: PRESENT: clear to auscultation martínez, decreased breath sounds, other - short inspiration and long expiration. ABSENT: rales, rhonchi, wheezes Cardiovascular exam: PRESENT: RRR. ABSENT: diastolic murmur, rubs, systolic murmur GI/Abdominal exam: PRESENT: normal bowel sounds, soft. ABSENT: distended, guarding, mass, organolmegaly, rebound, tenderness Rectal exam: PRESENT: deferred Gentrourinary exam: PRESENT: indwelling catheter Extremities exam: PRESENT: full ROM. ABSENT: calf tenderness, clubbing, pedal edema Neurological exam: PRESENT: alert, awake, oriented to person, oriented to place , oriented to time, oriented to situation, CN II-XII grossly intact. ABSENT: motor sensory deficit Psychiatric exam: PRESENT: appropriate affect, normal mood. ABSENT: homicidal ideation, suicidal ideation Skin exam: PRESENT: dry, intact, warm. ABSENT: cyanosis, rash Results Laboratory Results: 06/29/17 00:02 Urine Color YELLOW Urine Appearance SLIGHTLY-CLOUDY Urine pH 5.0 Ur Specific [place] 1.020 Urine Protein 100 H Urine Glucose (UA) NEGATIVE Urine Ketones NEGATIVE Urine Blood NEGATIVE Urine Nitrite NEGATIVE Ur Leukocyte Esterase NEGATIVE Urine WBC (Auto) 1 Urine RBC (Auto) 9 06/29/17 06/29/17 06/29/17 03:40 03:40 09:05 Creatine Kinase 56 49 CK-MB (CK-2) 1.37 Troponin I 0.029 06/29/17 06/29/17 06/29/17 09:05 15:45 15:45 Creatine Kinase 35 CK-MB (CK-2) 1.48 1.27 Troponin I 0.020 0.016 Impressions: Chest X-Ray 06/28/17 20:55 IMPRESSION: NO ACUTE RADIOGRAPHIC FINDING IN THE CHEST. Assessment & Plan - Diagnosis (1) COPD exacerbation Is this a current diagnosis for this admission?: Yes Plan: Patient on levofloxacin, nebs,Pulmicort, Mucinex and Solu-Medrol. (2) Congestive heart failure Qualifiers: Congestive heart failure type: diastolic Congestive heart failure chronicity: acute on chronic Qualified Code(s): I50.33 - Acute on chronic diastolic (congestive) heart failure Is this a current diagnosis for this admission?: Yes Plan: Patient has normal systolic function on cardiac echo done in 2017 however patient may have diastolic failure. Patient currently on Lasix. Strict ins and outs are being monitored. Patient over 2 L negative. Patient is on beta- petty. (3) Acute on chronic respiratory failure with hypoxia and hypercapnia Is this a current diagnosis for this admission?: Yes Plan: Patient with end-stage COPD. Posterior worsened by COPD exacerbation and congestive heart failure. Patient with supplemental oxygen. Continue BiPAP as needed. (4) Anemia Qualifiers: Anemia type: unspecified type Qualified Code(s): D64.9 - Anemia, unspecified Is this a current diagnosis for this admission?: Yes Plan: Anemia most likely secondary to chronic disease. Patient receiving supplemental iron. Hemoglobin currently stable. (5) Anxiety Plan: Continue on sertraline. (6) Atrial flutter Qualifiers: Atrial flutter type: typical Qualified Code(s): I48.3 - Typical atrial flutter Plan: Continue on diltiazem and metoprolol. Patient on Eliquis for anticoagulation. (7) Diabetes Qualifiers: Diabetes mellitus type: type 2 Is this a current diagnosis for this admission?: Yes Plan: Glipizide. Patient may need additional sliding scale insulin as she is on high- dose steroids. (8) HBP (high blood pressure) Qualifiers: Hypertension type: essential hypertension Qualified Code(s): I10 - Essential (primary) hypertension Is this a current diagnosis for this admission?: Yes Plan: Continue metoprolol and diltiazem. - Time Time Spent with patient: Less than 15 minutes Anticipated discharge: Home Within: Other - Inpatient Certification Medical Necessity: Significant Comorbidiites Make Outpatient Treatment Too Risky , Need Close Monitoring Due to Risk of Patient Decompensation, Need for Nebulizer Therapy and Monitoring of Response
--- NOTE | 2017-06-30 15:56 | PDOC PROGRESS REPORT ---
Subjective Progress Note for:: 06/30/17 Subjective:: Patient with a history of a flutter, congestive heart failure, pulmonary hypertension and end-stage COPD presented with shortness of breath patient admitted for COPD CHF exacerbation patient diuresed over 2 L. She states she has been pretty good. She still continues to have same problem. She has difficulty getting air in but can breathe out. Patient states that the nitroglycerin patch is helping her quite a bit. Patient states she did not have any symptoms from earlier on but the nurse came to tell me that the patient is complaining of feeling a little lightheaded. Patient is now hesitant about using this patch although is helping her to breathe better. Patient is requesting something for sleep at night. She normally takes Ambien. Reason For Visit: ACUTE HYPOXEMIC RESPIRATORY FAILURE, COPD Physical Exam Vital Signs: Temp Pulse Resp BP Pulse Ox 97.5 F 63 22 H 121/56 L 98 06/30/17 11:17 06/30/17 14:16 06/30/17 11:17 06/30/17 11:17 06/30/17 11:17 Pulse Oximeter Continuous Start: 06/29/17 00: 33 Freq: RTQ4 Status: Active Document 06/30/17 11:12 LDA (Rec: 06/30/17 11:13 LDA [email or web address]) Pulse Oximetry Assessment Oxygen Saturation (92-100) 95 Oxygen Delivery Method Bi-pap Fraction of Inspired Oxygen (FIO2) 28 Equipment Usage Equipment in Use Continuous SpO2 Machine # [id number] Intake & Output 06/29/17 06/30/17 07/01/17 06:59 06:59 06:59 Intake Total 250 1064 Output Total 1325 2140 Balance -1075 -1076 Weight 59.6 kg General appearance: PRESENT: no acute distress, thin Head exam: PRESENT: normocephalic Eye exam: PRESENT: EOMI. ABSENT: scleral icterus Mouth exam: PRESENT: moist Neck exam: ABSENT: carotid bruit, JVD, lymphadenopathy, thyromegaly Respiratory exam: PRESENT: clear to auscultation martínez, decreased breath sounds. ABSENT: rales, rhonchi, wheezes Cardiovascular exam: PRESENT: RRR. ABSENT: diastolic murmur, rubs, systolic murmur GI/Abdominal exam: PRESENT: normal bowel sounds, soft. ABSENT: distended, guarding, mass, organolmegaly, rebound, tenderness Rectal exam: PRESENT: deferred Extremities exam: PRESENT: full ROM, pedal edema. ABSENT: calf tenderness, clubbing Neurological exam: PRESENT: alert, awake, oriented to person, oriented to place , oriented to time, oriented to situation, CN II-XII grossly intact. ABSENT: motor sensory deficit Psychiatric exam: PRESENT: appropriate affect, normal mood. ABSENT: homicidal ideation, suicidal ideation Skin exam: PRESENT: dry, intact, warm. ABSENT: cyanosis, rash Results Laboratory Results: 06/30/17 04:10 06/30/17 04:10 06/30/17 06/30/17 04:10 04:10 WBC 7.0 RBC 3.87 Hgb 9.7 L Hct 31.0 L MCV 80 MCH 25.0 L MCHC 31.2 L RDW 19.2 H Plt Count 197 Seg Neutrophils % Not Reportable Lymphocytes % Not Reportable Monocytes % Not Reportable Eosinophils % Not Reportable Basophils % Not Reportable Absolute Neutrophils Not Reportable Absolute Lymphocytes Not Reportable Absolute Monocytes Not Reportable Absolute Eosinophils Not Reportable Absolute Basophils Not Reportable Sodium 141.2 Potassium 4.1 Chloride 98 Carbon Dioxide 36 H Anion Gap 7 BUN 20 Creatinine 0.63 Est GFR ( Amer) > 60 Est GFR (Non-Af Amer) > 60 Glucose 381 H Calcium 9.4 Magnesium 1.9 06/29/17 06/29/17 06/29/17 03:40 03:40 09:05 Creatine Kinase 56 49 CK-MB (CK-2) 1.37 Troponin I 0.029 NT-Pro-B Natriuret Pep 06/29/17 06/29/17 06/29/17 09:05 15:45 15:45 Creatine Kinase 35 CK-MB (CK-2) 1.48 1.27 Troponin I 0.020 0.016 NT-Pro-B Natriuret Pep 06/30/17 04:10 Creatine Kinase CK-MB (CK-2) Troponin I NT-Pro-B Natriuret Pep 245 Impressions: Chest X-Ray 06/28/17 20:55 IMPRESSION: NO ACUTE RADIOGRAPHIC FINDING IN THE CHEST. Assessment & Plan - Diagnosis (1) COPD exacerbation Is this a current diagnosis for this admission?: Yes Plan: Continue levofloxacin (on last admission patient sputum grew Pseudomonas susceptible to Levaquin) nebs,Pulmicort, Mucinex and Solu-Medrol. (2) Congestive heart failure Qualifiers: Congestive heart failure type: diastolic Congestive heart failure chronicity: acute on chronic Qualified Code(s): I50.33 - Acute on chronic diastolic (congestive) heart failure Is this a current diagnosis for this admission?: Yes Plan: Patient has normal systolic function on cardiac echo done in 2017 however patient may have diastolic failure. She currently on p.o. Lasix 40 mg twice daily. Patient was initially on 40 mg p.o. daily at home however may require an increased dose she presented volume overloaded. Strict ins and outs are being monitored. Patient over 2 L negative. Patient is on beta-petty. (3) Acute on chronic respiratory failure with hypoxia and hypercapnia Is this a current diagnosis for this admission?: Yes Plan: Patient with end-stage COPD. Posterior worsened by COPD exacerbation and congestive heart failure. Patient with supplemental oxygen. Continue BiPAP as needed. Maintaining her sats on supplemental oxygen in the mid to high 90s. (4) Anemia Qualifiers: Anemia type: unspecified type Qualified Code(s): D64.9 - Anemia, unspecified Is this a current diagnosis for this admission?: Yes Plan: Anemia most likely secondary to chronic disease. Patient receiving supplemental iron. Hemoglobin currently stable. (5) Anxiety Plan: Continue on sertraline. (6) Atrial flutter Qualifiers: Atrial flutter type: typical Qualified Code(s): I48.3 - Typical atrial flutter Plan: Actually in normal sinus rhythm. Continue on diltiazem and metoprolol. Patient on Eliquis for anticoagulation. (7) Diabetes Qualifiers: Diabetes mellitus type: type 2 Is this a current diagnosis for this admission?: Yes Plan: Glipizide. Continue sliding-scale insulin with regular glucose checks. (8) HBP (high blood pressure) Qualifiers: Hypertension type: essential hypertension Qualified Code(s): I10 - Essential (primary) hypertension Is this a current diagnosis for this admission?: Yes Plan: Continue metoprolol and diltiazem. - Time Time Spent with patient: Less than 15 minutes Anticipated discharge: Home Within: Other - Inpatient Certification Medical Necessity: Significant Comorbidiites Make Outpatient Treatment Too Risky , Need Close Monitoring Due to Risk of Patient Decompensation, Need for Nebulizer Therapy and Monitoring of Response
[2017-06-30] MEDS: ZOLPIDEM TARTRATE 5 MG TABLET PO SCH (22:26)
[2017-06-30] MEDS: LEVOFLOXACIN 750 MG TABLET PO SCH (22:26)
[2017-07-01] MEDS: IPRATROPIUM/ALBUTEROL 0.5-2.5 MG/3 ML AMPUL NEB SCH ×4 (02:20→20:00)
[2017-07-01] MEDS: METHYLPREDNISOLONE INJ 40 MG/1 ML SDV IV SCH ×2 (06:19→21:42)
[2017-07-01] MEDS: INSULIN LISPRO 100 UNIT/ML 3 ML VIAL SUBCUT PRN ×4 (06:19→22:29)
[2017-07-01] MEDS: BUDESONIDE NEB 0.5 MG/2 ML AMPUL NEB SCH ×2 (08:33→20:00)
[2017-07-01] MEDS: FOLIC ACID 1 MG TABLET PO SCH (10:07)
[2017-07-01] MEDS: FERROUS SULFATE 325 MG TABLET PO SCH (10:08)
[2017-07-01] MEDS: FUROSEMIDE 40 MG TABLET PO SCH ×2 (10:08→17:04)
[2017-07-01] MEDS: SERTRALINE HCL 50 MG TABLET PO SCH (10:08)
[2017-07-01] MEDS: ASPIRIN 81 MG TABLET, ENT COATED PO SCH (10:08)
[2017-07-01] MEDS: APIXABAN 5 MG TABLET PO SCH ×2 (10:08→17:03)
[2017-07-01] MEDS: GLIPIZIDE XL 2.5 MG TAB.ER.24 PO SCH ×2 (10:08→17:03)
[2017-07-01] MEDS: DILTIAZEM HCL 180 MG CAPSULE.CR PO SCH (10:09)
[2017-07-01] MEDS: POTASSIUM CHLORIDE 10 MEQ TABLET.SA PO SCH (10:09)
[2017-07-01] MEDS: DIGOXIN 0.125 MG TABLET PO SCH (10:09)
[2017-07-01] MEDS: MULTIVITAMIN TABLET PO SCH (10:09)
[2017-07-01] MEDS: NITROGLYCERIN 2.5 MG (0.1 MG/HR) PATCH.TD24 TD SCH (10:09)
[2017-07-01] MEDS: METOPROLOL SUCCINATE 50 MG TAB.SR.24H PO SCH (10:09)
[2017-07-01] MEDS: GUAIFENESIN 600 MG TABLET.SA PO SCH ×2 (10:10→21:42)
--- NOTE | 2017-07-01 13:28 | PDOC PROGRESS REPORT ---
Subjective Progress Note for:: 07/01/17 Subjective:: The patient is a 56-year-old female admitted with a combined COPD exacerbation/ congestive heart failure exacerbation. The patient has a history of atrial flutter, congestive heart failure, pulmonary hypertension and end-stage COPD. She presented with increasing shortness of breath despite using her BiPAP machine at home. She has been receiving corticosteroids with mild benefit. She states that she feels that nitroglycerin has improved her symptoms the most. Since admission she has been diuresed 2 L. Today, she told me that she feels that her pneumonia is coming back "". Her admission chest x-ray was unremarkable. Reason For Visit: ACUTE HYPOXEMIC RESPIRATORY FAILURE, COPD Physical Exam Vital Signs: Temp Pulse Resp BP Pulse Ox 98.0 F 80 24 H 145/78 H 98 07/01/17 11:02 07/01/17 11:02 07/01/17 11:51 07/01/17 11:02 07/01/17 11:51 Pulse Oximeter Continuous Start: 06/29/17 00: 33 Freq: RTQ4 Status: Active Document 07/01/17 11:51 LDA (Rec: 07/01/17 11:54 LDA [email or web address]) Pulse Oximetry Assessment Oxygen Saturation (92-100) 98 Oxygen Delivery Method Bi-pap Fraction of Inspired Oxygen (FIO2) 28 Equipment Usage Equipment in Use Continuous SpO2 Machine # 10 Intake & Output 06/30/17 07/01/17 07/02/17 06:59 06:59 06:59 Intake Total 1064 967 Output Total 9850 3038 Balance -4283 -2094 Weight 59.6 kg 61.6 kg Results Laboratory Results: 06/30/17 04:10 06/30/17 04:10 06/29/17 06/29/17 06/29/17 03:40 03:40 09:05 Creatine Kinase 56 49 CK-MB (CK-2) 1.37 Troponin I 0.029 NT-Pro-B Natriuret Pep 06/29/17 06/29/17 06/29/17 09:05 15:45 15:45 Creatine Kinase 35 CK-MB (CK-2) 1.48 1.27 Troponin I 0.020 0.016 NT-Pro-B Natriuret Pep 06/30/17 04:10 Creatine Kinase CK-MB (CK-2) Troponin I NT-Pro-B Natriuret Pep 245 Impressions: Chest X-Ray 06/28/17 20:55 IMPRESSION: NO ACUTE RADIOGRAPHIC FINDING IN THE CHEST. Assessment & Plan - Diagnosis (1) Acute and chronic respiratory failure with hypoxia Is this a current diagnosis for this admission?: Yes Plan: Patient looks tenuous. I would like to continue IV corticosteroids for now. She is also receiving bronchodilators and antibiotics. I will repeat a chest x- ray. (2) COPD exacerbation Is this a current diagnosis for this admission?: Yes Plan: See above. (3) Congestive heart failure Qualifiers: Congestive heart failure type: diastolic Congestive heart failure chronicity: acute on chronic Qualified Code(s): I50.33 - Acute on chronic diastolic (congestive) heart failure Is this a current diagnosis for this admission?: Yes Plan: This is presumably diastolic in nature. Note that Lasix was increased upon admission and patient has diuresed 2 L. Certainly, we will follow renal function closely. (4) Anemia Qualifiers: Anemia type: unspecified type Qualified Code(s): D64.9 - Anemia, unspecified Is this a current diagnosis for this admission?: Yes Plan: Diagnosis is noted as anemia of chronic disease, however, patient is receiving iron. Will follow trends. (5) Anxiety Is this a current diagnosis for this admission?: Yes (6) Atrial flutter Qualifiers: Atrial flutter type: typical Qualified Code(s): I48.3 - Typical atrial flutter Plan: Continue Eliquis, metoprolol and diltiazem. (7) Diabetes Qualifiers: Diabetes mellitus type: type 2 Is this a current diagnosis for this admission?: Yes Plan: Sugars noted to be severely elevated today. Will change to carbohydrate controlled diet. Will adjust oral medications and consider adding prandial and basal insulin. (8) HBP (high blood pressure) Qualifiers: Hypertension type: essential hypertension Qualified Code(s): I10 - Essential (primary) hypertension Is this a current diagnosis for this admission?: Yes Plan: Continue metoprolol and diltiazem. - Time Time Spent with patient: 25-34 minutes - Inpatient Certification Medical Necessity: Significant Comorbidiites Make Outpatient Treatment Too Risky , Need Close Monitoring Due to Risk of Patient Decompensation, Need For Continuous Telemetry Monitoring, Need for IV Antibiotics
--- NOTE | 2017-07-01 14:27 | RADIOLOGY REPORT (SQ) ---
EXAM DESCRIPTION: CHEST SINGLE VIEW COMPLETED DATE/TIME: 07/01/2017 2:04 pm REASON FOR STUDY: Clinical deterioration COMPARISON: 06/28/2017 EXAM PARAMETERS: NUMBER OF VIEWS: One view. TECHNIQUE: Single frontal radiographic view of the chest acquired. RADIATION DOSE: NA LIMITATIONS: None. FINDINGS: LUNGS AND PLEURA: No opacities, masses or pneumothorax. No pleural effusion. MEDIASTINUM AND HILAR STRUCTURES: No masses. Contour normal. HEART AND VASCULAR STRUCTURES: Heart normal in size. Normal vasculature. BONES: No acute findings. HARDWARE: None in the chest. OTHER: No other significant finding. IMPRESSION: NO ACUTE RADIOGRAPHIC FINDING IN THE CHEST. TECHNICAL DOCUMENTATION: JOB ID: [id number] [employer]- All Rights Reserved
[2017-07-01] MEDS: ZOLPIDEM TARTRATE 5 MG TABLET PO SCH (21:42)
[2017-07-01] MEDS: LEVOFLOXACIN 750 MG TABLET PO SCH (21:42)
[2017-07-02] MEDS: IPRATROPIUM/ALBUTEROL 0.5-2.5 MG/3 ML AMPUL NEB SCH ×4 (02:20→22:19)
[2017-07-02 07:00] LABS: BLOOD UREA NITROGEN 27 mg/dL (7-20); CALCIUM 9.2 mg/dL (8.4-10.2); CHLORIDE 92 mmol/L (98-107); GLUCOSE 345 mg/dL (75-110); MAGNESIUM 1.9 mg/dL (1.6-2.3); PHOSPHORUS 3.2 mg/dL (2.5-4.5); POTASSIUM 3.6 mmol/L (3.6-5.0); SODIUM 143.4 mmol/L (137-145)
[2017-07-02 07:03] LABS: ANION GAP 11 (5-19)
[2017-07-02 07:27] LABS: CARBON DIOXIDE 40 mmol/L (22-30)
[2017-07-02] MEDS: INSULIN LISPRO 100 UNIT/ML 3 ML VIAL SUBCUT PRN ×4 (07:48→22:20)
[2017-07-02] MEDS: GLIPIZIDE XL 2.5 MG TAB.ER.24 PO SCH (07:48)
[2017-07-02] MEDS ORDERED: LEVALBUTEROL HCL NEB 1.25 MG/3 ML AMPUL NEB PRN (08:30)
[2017-07-02] MEDS: BUDESONIDE NEB 0.5 MG/2 ML AMPUL NEB SCH ×2 (08:33→22:19)
[2017-07-02] MEDS: METHYLPREDNISOLONE INJ 40 MG/1 ML SDV IV SCH ×2 (09:56→22:20)
[2017-07-02] MEDS: ASPIRIN 81 MG TABLET, ENT COATED PO SCH (09:57)
[2017-07-02] MEDS: APIXABAN 5 MG TABLET PO SCH ×2 (09:57→17:25)
[2017-07-02] MEDS: DILTIAZEM HCL 180 MG CAPSULE.CR PO SCH (09:57)
[2017-07-02] MEDS: DIGOXIN 0.125 MG TABLET PO SCH (09:57)
[2017-07-02] MEDS: MULTIVITAMIN TABLET PO SCH (09:58)
[2017-07-02] MEDS: SERTRALINE HCL 50 MG TABLET PO SCH (09:58)
[2017-07-02] MEDS: FERROUS SULFATE 325 MG TABLET PO SCH (09:58)
[2017-07-02] MEDS: POTASSIUM CHLORIDE 10 MEQ TABLET.SA PO SCH (09:59)
[2017-07-02] MEDS: METOPROLOL SUCCINATE 50 MG TAB.SR.24H PO SCH (09:59)
[2017-07-02] MEDS: FOLIC ACID 1 MG TABLET PO SCH (10:01)
[2017-07-02] MEDS: GUAIFENESIN 600 MG TABLET.SA PO SCH ×2 (10:01→22:20)
[2017-07-02] MEDS: NITROGLYCERIN 2.5 MG (0.1 MG/HR) PATCH.TD24 TD SCH (10:17)
--- NOTE | 2017-07-02 11:17 | PDOC PROGRESS REPORT ---
Subjective Progress Note for:: 07/02/17 Subjective:: The patient is a 56-year-old female admitted with a combined COPD exacerbation/ congestive heart failure exacerbation. The patient has a history of atrial flutter, congestive heart failure, pulmonary hypertension and end-stage COPD. She presented with increasing shortness of breath despite using her BiPAP machine at home. She has been receiving corticosteroids with mild benefit. She states that she feels that nitroglycerin has improved her symptoms the most. Since admission she has been diuresed 2 L. Yesterday, she told me that she feels that her pneumonia is coming back "". Her admission chest x-ray was unremarkable. I repeated a chest x-ray yesterday and this was also unremarkable. Today, she states that she is finally starting to feel better. She now is less short of breath with minimal activities such as eating and speaking. Reason For Visit: ACUTE HYPOXEMIC RESPIRATORY FAILURE, COPD Physical Exam Vital Signs: Temp Pulse Resp BP Pulse Ox 98.7 F 98 22 H 153/80 H 96 07/02/17 08:11 07/02/17 08:33 07/02/17 08:33 07/02/17 08:11 07/02/17 08:33 Pulse Oximeter Continuous Start: 06/29/17 00: 33 Freq: RTQ4 Status: Active Document 07/02/17 08:33 LDA (Rec: 07/02/17 10:41 LDA [email or web address]) Pulse Oximetry Assessment Equipment Usage Equipment Standby Continuous SpO2 Machine # 10 Intake & Output 07/01/17 07/02/17 07/03/17 06:59 06:59 06:59 Intake Total 967 7420 Output Total 1999 3790 Balance -2333 -7884 Weight 61.6 kg 62.5 kg Additional comments: The patient is a thin black female. She is currently giving herself a sponge bath. She is tachypneic but she does not appear to be in distress. In general , she appears to be improved when compared to yesterday. Her facial appearance is unremarkable. Her cognition is normal. Her pulmonary exam demonstrates improved air movement, however, her air movement is still extremely poor. In general, she has better air movement in the right posterior lung field when compared to the left. This was similar to yesterday. I do not appreciate any wheezing and I do not appreciate any rails. The abdomen is soft and flat. Bowel sounds are present. She does not have guarding or rebound present. Cardiac exam is regular without murmurs, gallops or rubs. The lower extremities demonstrate 2+ edema in the left lower extremity 1+ edema in the right lower extremity. Per patient, chronic edema is present, particularly when she is on steroids. In general, the left leg is more swollen than the right. Results Laboratory Results: 06/30/17 04:10 07/02/17 05:19 07/01/17 07/02/17 14:16 05:19 Sodium 143.4 Potassium 3.6 Chloride 92 L Carbon Dioxide 40 H* Anion Gap 11 BUN 27 H Creatinine 0.72 Est GFR ( Amer) > 60 Est GFR (Non-Af Amer) > 60 Glucose 415 H* 345 H Calcium 9.2 Phosphorus 3.2 Magnesium 1.9 06/30/17 11:30 Catheterized Urine Urine Culture - Final NO GROWTH 2 DAYS 06/29/17 06/29/17 06/29/17 03:40 03:40 09:05 Creatine Kinase 56 49 CK-MB (CK-2) 1.37 Troponin I 0.029 NT-Pro-B Natriuret Pep 06/29/17 06/29/17 06/29/17 09:05 15:45 15:45 Creatine Kinase 35 CK-MB (CK-2) 1.48 1.27 Troponin I 0.020 0.016 NT-Pro-B Natriuret Pep 06/30/17 04:10 Creatine Kinase CK-MB (CK-2) Troponin I NT-Pro-B Natriuret Pep 245 Impressions: Chest X-Ray 07/01/17 00:00 IMPRESSION: NO ACUTE RADIOGRAPHIC FINDING IN THE CHEST. Assessment & Plan - Diagnosis (1) Acute and chronic respiratory failure with hypoxia Is this a current diagnosis for this admission?: Yes Plan: Patient remains tenuous, but is improved when compared to yesterday. She finally may be turning the corner, but I would like to continue IV corticosteroids for now. She is also receiving bronchodilators and antibiotics. (2) COPD exacerbation Is this a current diagnosis for this admission?: Yes Plan: See above. (3) Congestive heart failure Qualifiers: Congestive heart failure type: diastolic Congestive heart failure chronicity: acute on chronic Qualified Code(s): I50.33 - Acute on chronic diastolic (congestive) heart failure Is this a current diagnosis for this admission?: Yes Plan: This is presumably diastolic in nature. Note that Lasix was increased upon admission and patient has diuresed 2 L. The patient is now developing a contraction alkalosis. BUN is also going up. Therefore, I have decreased the dose of Lasix. (4) Anemia Qualifiers: Anemia type: unspecified type Qualified Code(s): D64.9 - Anemia, unspecified Is this a current diagnosis for this admission?: Yes Plan: Diagnosis is noted as anemia of chronic disease, however, patient is receiving iron. Will follow trends. (5) Anxiety Is this a current diagnosis for this admission?: Yes Plan: Continue Zoloft. (6) Atrial flutter Qualifiers: Atrial flutter type: typical Qualified Code(s): I48.3 - Typical atrial flutter Plan: Continue Eliquis, metoprolol and diltiazem. (7) Diabetes Qualifiers: Diabetes mellitus type: type 2 Is this a current diagnosis for this admission?: Yes Plan: Blood sugars are improved when compared to yesterday but still elevated. Yesterday, glipizide was increased. I will continue to increase this and she is on such a small dose. I also changed her to a carbohydrate controlled diet. We will also continue sliding scale. Yesterday, the dose of corticosteroids was also decreased which should improve her blood sugars. (8) HBP (high blood pressure) Qualifiers: Hypertension type: essential hypertension Qualified Code(s): I10 - Essential (primary) hypertension Is this a current diagnosis for this admission?: Yes Plan: Continue metoprolol and diltiazem. Some blood pressures are trending upward. We will need to follow closely due to decreased dose of Lasix. We need to aggressively control blood pressure to control her diastolic dysfunction. - Time Time Spent with patient: 25-34 minutes - Inpatient Certification Medical Necessity: Significant Comorbidiites Make Outpatient Treatment Too Risky , Need Close Monitoring Due to Risk of Patient Decompensation, Need for Nebulizer Therapy and Monitoring of Response, Risk of Complication if Not Cared For in Hospital
--- NOTE | 2017-07-02 12:47 | PDOC PROGRESS REPORT ---
Subjective Progress Note for:: 07/02/17 Subjective:: Continues to complain of dyspnea and weakness Reason For Visit: ACUTE HYPOXEMIC RESPIRATORY FAILURE, COPD Physical Exam Vital Signs: Temp Pulse Resp BP Pulse Ox 98.7 F 98 22 H 153/80 H 96 07/02/17 08:11 07/02/17 08:33 07/02/17 08:33 07/02/17 08:11 07/02/17 08:33 Pulse Oximeter Continuous Start: 06/29/17 00: 33 Freq: RTQ4 Status: Active Document 07/02/17 08:33 LDA (Rec: 07/02/17 10:41 LDA [email or web address]) Pulse Oximetry Assessment Equipment Usage Equipment Standby Continuous SpO2 Machine # 10 Intake & Output 07/01/17 07/02/17 07/03/17 06:59 06:59 06:59 Intake Total 967 1450 Output Total 1999 4300 Balance -1033 -2850 Weight 61.6 kg 62.5 kg General appearance: PRESENT: no acute distress, cooperative, disheveled, mild distress, thin. ABSENT: morbidly obese, obese, severe distress Head exam: PRESENT: atraumatic, normocephalic Eye exam: PRESENT: conjunctiva pale, EOMI. ABSENT: conjunctival injection, conjunctiva pink, nystagmus, periorbital swelling, scleral icterus Mouth exam: PRESENT: dry mucosa, neck supple, tongue midline. ABSENT: laceration, moist Teeth exam: PRESENT: poor dentation Neck exam: ABSENT: carotid bruit, JVD, lymphadenopathy, thyromegaly, tracheal deviation, tracheostomy Respiratory exam: PRESENT: decreased breath sounds, prolonged expiratory phas, rhonchi, symmetrical, unlabored. ABSENT: accessory muscle use, chest wall tenderness, clear to auscultation martínez, crackles, rales, retraction, stridor Cardiovascular exam: PRESENT: RRR, +S1, +S2 Pulses: PRESENT: normal radial pulses GI/Abdominal exam: PRESENT: diminished bowel sounds, soft Extremities exam: ABSENT: calf tenderness, clubbing, joint swelling Musculoskeletal exam: ABSENT: deformity, dislocation Neurological exam: PRESENT: alert, awake Psychiatric exam: PRESENT: normal mood Skin exam: PRESENT: dry, warm Results Laboratory Results: 06/30/17 04:10 07/02/17 05:19 07/01/17 07/02/17 14:16 05:19 Sodium 143.4 Potassium 3.6 Chloride 92 L Carbon Dioxide 40 H* Anion Gap 11 BUN 27 H Creatinine 0.72 Est GFR ( Amer) > 60 Est GFR (Non-Af Amer) > 60 Glucose 415 H* 345 H Calcium 9.2 Phosphorus 3.2 Magnesium 1.9 06/30/17 11:30 Catheterized Urine Urine Culture - Final NO GROWTH 2 DAYS 06/29/17 06/29/17 06/29/17 03:40 03:40 09:05 Creatine Kinase 56 49 CK-MB (CK-2) 1.37 Troponin I 0.029 NT-Pro-B Natriuret Pep 06/29/17 06/29/17 06/29/17 09:05 15:45 15:45 Creatine Kinase 35 CK-MB (CK-2) 1.48 1.27 Troponin I 0.020 0.016 NT-Pro-B Natriuret Pep 06/30/17 04:10 Creatine Kinase CK-MB (CK-2) Troponin I NT-Pro-B Natriuret Pep 245 Impressions: Chest X-Ray 07/01/17 00:00 IMPRESSION: NO ACUTE RADIOGRAPHIC FINDING IN THE CHEST. Assessment & Plan - Diagnosis (1) Acute and chronic respiratory failure with hypoxia Is this a current diagnosis for this admission?: Yes Plan: Stable minimal improvement (2) COPD exacerbation Is this a current diagnosis for this admission?: Yes Plan: Continues to wheeze (3) Congestive heart failure Qualifiers: Congestive heart failure type: diastolic Congestive heart failure chronicity: acute on chronic Qualified Code(s): I50.33 - Acute on chronic diastolic (congestive) heart failure Is this a current diagnosis for this admission?: Yes (4) Anxiety Is this a current diagnosis for this admission?: Yes (5) Atrial fibrillation with RVR Is this a current diagnosis for this admission?: Yes Plan: Ventricular response appears to be well controlled (6) Continuous tobacco abuse Is this a current diagnosis for this admission?: Yes
--- NOTE | 2017-07-02 13:06 | PDOC CONSULTATION ---
Consultation Consult Date: 06/29/17 Attending physician:: TAMMY MUÑIZ Consult reason:: resp failure History of Present Illness Admission Date/PCP: 06/28/17 23:54 JUVENAL OROPEZA MD History of Present Illness: TERE VALERIO is a 56 year old femaleWith past medical history of a flutter, congestive heart failure, pulmonary hypertension, end-stage COPD, who presents to the emergency department because of shortness of breath. She was given initially IV Lasix with some improvement of her shortness of breath. She is referred to the hospital service for combined COPD/CHF exacerbation and acute on chronic hypoxemic respiratory failure.She admits to production of green sputum with no hemoptysis. She states that time she was administered by carpet measurer she was on a BiPAP but had a saturation of 97% Past Medical History Cardiac Medical History: Reports: Atrial Fibrillation, Congestive Heart Failure , Myocardial Infarction, Hypertension Pulmonary Medical History: Reports: Chronic Obstructive Pulmonary Disease (COPD) , Pneumonia EENT Medical History: Denies: Ears, Nose Neurological Medical History: Denies: Migraine, Multiple Sclerosis Endocrine Medical History: Reports: Diabetes Mellitus Type 2 - 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 Denies: Gestational Diabetes, Obesity Renal/ Medical History: Denies: Nephrolithiasis Malignancy Medical History: Reports: None GI Medical History: Denies: Cirrhosis, Crohn's Disease, Ulcerative Colitis Musculoskeltal Medical History: Reports: Arthritis Denies: Gout Skin Medical History: Denies: Psoriasis Psychiatric Medical History: Reports: Tobacco Dependency Denies: Depression Traumatic Medical History: Reports: Traumatic Brain Injury Hematology: Reports: Anemia Denies: Sickle Cell Disease Infectious Medical History: Denies: Hepatitis B Past Surgical History Past Surgical History: Reports: Cardiac Catheterization, Section Social History Information Source: [facility], [facility] Lives with: Family Smoking Status: Current Every Day Smoker Passive smoke exposure as: Both Frequency of Alcohol Use: None Hx Recreational Drug Use: No Drugs: None Hx Prescription Drug Abuse: No Do you have pets?: No Have you had any respiratory illnesses as a child?: No Have you been exposed to any sick contacts recently?: Yes Have you had any recent respiratory illnesses?: No - Advance Directive Resuscitation Status: Full Code Family History Family History: CAD, COPD, Hypertension Parental Family History Reviewed: Yes Children Family History Reviewed: Yes Sibling(s) Family History Reviewed.: Yes Medication/Allergy Home Medications: Albuterol Sulfate [Ventolin HFA MDI 18 GM] 1 puff IH Q6HP PRN 06/29/17 Apixaban [Eliquis] 5 mg PO Q12 06/29/17 Budesonide/Formoterol Fumarate [Symbicort 160-4.5 Mcg Inhaler] 1 puff IH Q12 06/04 Digoxin [Lanoxin 0.125 mg Tablet] 0.125 mg PO DAILY 06/29/17 Diltiazem HCl [Cartia Xt] 180 mg PO DAILY 06/29/17 Ferrous Sulfate [Feosol 325 mg Tablet] 325 mg PO DAILY 06/29/17 Fluticasone Propionate [Flonase Nasal Thornton 50 Mcg/Thornton 16 gm] 1 spray NASL DAILYP PRN 06/29/17 Folic Acid [Folvite 1 mg Tablet] 1 mg PO DAILY 06/29/17 Furosemide [Lasix 40 mg Tablet] 40 mg PO DAILY 06/29/17 Glipizide [Glipizide ER] 2.5 mg PO DAILY 06/29/17 Metoprolol Succinate [Toprol Xl 50 mg Tab.sr] 50 mg PO DAILY 06/29/17 Montelukast Sodium [Singulair 10 mg Tablet] 10 mg PO QPM 06/29/17 Potassium Chloride [K-Tab ER] 20 meq PO DAILY 06/29/17 Sertraline HCl [Zoloft] 25 mg PO DAILY 06/29/17 Tiotropium [place] [Spiriva Respimat] 2 puff IH DAILY 06/29/17 Zolpidem Tartrate [Ambien 5 mg Tablet] 5 mg PO HSP PRN 06/29/17 Allergies/Adverse Reactions: erythromycin base [Erythromycin Base] Allergy (Mild, Verified 06/29/17 07:01) Review of Systems Constitutional: PRESENT: anorexia, chills, fatigue, fever(s), weakness. ABSENT : headache(s), night sweats Eyes: ABSENT: visual disturbances Ears: ABSENT: hearing changes Nose, Mouth, and Throat: PRESENT: sore throat. ABSENT: mouth pain Cardiovascular: PRESENT: dyspnea on exertion. ABSENT: edema, palpitations Respiratory: PRESENT: dyspnea. ABSENT: hemoptysis Gastrointestinal: ABSENT: abdominal pain, bloating, coffee ground emesis, dysphagia, heartburn, hematemesis, hematochezia Genitourinary: ABSENT: difficulty urinating, dysuria, hematuria Musculoskeletal: ABSENT: deformity, joint swelling Integumentary: ABSENT: pruritus, rash Neurological: ABSENT: abnormal gait, abnormal movements, abnormal speech, confusion, focal weakness, frequent falls, lack of coordination, memory loss Psychiatric: ABSENT: hallucinations, homidical ideation, suicidal ideation Endocrine: ABSENT: cold intolerance, heat intolerance Hematologic/Lymphatic: PRESENT: easy bruising Physical Exam Vital Signs: Temp Pulse Resp BP Pulse Ox 97.6 F 82 22 H 131/79 H 100 06/29/17 06:02 06/29/17 08:04 06/29/17 08:25 06/29/17 07:00 06/29/17 08:25 Pulse Oximeter Continuous Start: 06/29/17 00: 33 Freq: RTQ4 Status: Active Document 06/29/17 08:04 HCR (Rec: 06/29/17 09:08 HCR [email or web address]) Pulse Oximetry Assessment Oxygen Saturation (92-100) 100 Oxygen Flow Rate (L/min) 6 Oxygen Delivery Method Nasal Cannula Equipment Usage Equipment Standby Continuous SpO2 Machine # [id number] Intake & Output 06/28/17 06/29/17 06/30/17 06:59 06:59 06:59 Intake Total 250 Output Total 1325 Balance -1075 General appearance: PRESENT: cooperative, disheveled, mild distress, thin. ABSENT: no acute distress, morbidly obese, obese, severe distress Head exam: PRESENT: atraumatic, normocephalic Eye exam: PRESENT: conjunctiva pale, EOMI. ABSENT: conjunctival injection, conjunctiva pink, nystagmus, periorbital swelling, scleral icterus Mouth exam: PRESENT: dry mucosa, neck supple, tongue midline. ABSENT: laceration, moist Teeth exam: PRESENT: poor dentation Neck exam: ABSENT: carotid bruit, JVD, lymphadenopathy, thyromegaly, tracheal deviation, tracheostomy Respiratory exam: PRESENT: decreased breath sounds, prolonged expiratory phas, rales, rhonchi, symmetrical, wheezes. ABSENT: accessory muscle use, chest wall tenderness, clear to auscultation martínez, crackles, retraction, stridor Cardiovascular exam: PRESENT: RRR, +S1, +S2 Pulses: PRESENT: normal radial pulses GI/Abdominal exam: PRESENT: diminished bowel sounds, soft Extremities exam: ABSENT: clubbing, joint swelling Musculoskeletal exam: ABSENT: deformity, dislocation Neurological exam: PRESENT: alert, awake Psychiatric exam: PRESENT: normal mood Skin exam: PRESENT: dry, warm Results Laboratory Results: 06/29/17 00:02 Urine Color YELLOW Urine Appearance SLIGHTLY-CLOUDY Urine pH 5.0 Ur Specific [place] 1.020 Urine Protein 100 H Urine Glucose (UA) NEGATIVE Urine Ketones NEGATIVE Urine Blood NEGATIVE Urine Nitrite NEGATIVE Ur Leukocyte Esterase NEGATIVE Urine WBC (Auto) 1 Urine RBC (Auto) 9 06/29/17 06/29/17 06/29/17 03:40 03:40 09:05 Creatine Kinase 56 49 CK-MB (CK-2) 1.37 Troponin I 0.029 Impressions: Chest X-Ray 06/28/17 20:55 IMPRESSION: NO ACUTE RADIOGRAPHIC FINDING IN THE CHEST. Assessment & Plan - Diagnosis (1) Acute and chronic respiratory failure with hypoxia Is this a current diagnosis for this admission?: Yes Plan: extremely decreased airflow (2) COPD exacerbation Is this a current diagnosis for this admission?: Yes Plan: Generic Name Dose Route Start Last Admin Trade Name Freq PRN Reason Stop Dose Admin Guaifenesin 600 mg 07/02/17 22:00 Mucinex Sr 600 Mg Tablet.Sa PO 07/29/17 09:59 Q12 ANA Zolpidem Tartrate 2.5 mg 06/30/17 22:00 07/01/17 21:42 Ambien 5 Mg Tablet PO 07/07/17 21:59 2.5 mg QHS ANA Budesonide 0.5 mg 06/29/17 20:00 07/02/17 08:33 Pulmicort Neb 0.5 Mg/2 Ml Ampul NEB 07/29/17 19:59 0.5 mg RTQ12 ANA Methylprednisolone Sodium Succinate 40 mg 07/01/17 22:00 07/02/17 09:56 Solu-Medrol Inj/Pf 40 Mg/1 Ml Sdv IV 07/31/17 21:59 40 mg Q12 ANA Albuterol/Ipratropium 3 ml 06/29/17 02:00 07/02/17 08:33 Duoneb 3 Ml Ampul NEB 07/29/17 01:59 3 ml RTQ6 ANA Levalbuterol HCl 1.25 mg 07/02/17 08:30 Xopenex Neb 1.25 Mg/3 Ml Ampul NEB 07/29/17 00:31 RTQ2HP PRN WHEEZING/DYSPNEA Methylprednisolone Sodium Succinate 60 mg 06/07/17 22:00 06/12/17 07:11 Solu-Medrol Inj/Pf 125 Mg/2 Ml Sdv IV 07/07/17 21:59 60 mg Q8 ANA Levalbuterol HCl 1.25 mg 06/09/17 12:00 06/12/17 08:06 Xopenex Neb 1.25 Mg/3 Ml Ampul NEB 07/09/17 11:59 1.25 mg RTQ4 ANA Fluticasone Propionate 2 spray 06/08/17 10:00 06/11/17 09:44 Flonase Nasal Thornton 50 Mcg/Thornton 16 Gm NASL 07/08/17 09:59 2 spray DAILY ANA (3) Anemia Qualifiers: Anemia type: unspecified type Qualified Code(s): D64.9 - Anemia, unspecified Is this a current diagnosis for this admission?: Yes Plan: Chronic disease (4) Anxiety Is this a current diagnosis for this admission?: Yes (5) Atrial fibrillation with RVR Is this a current diagnosis for this admission?: Yes
[2017-07-02] MEDS: GLIPIZIDE 5 MG TABLET PO SCH (16:23)
[2017-07-02] MEDS: LEVOFLOXACIN 750 MG TABLET PO SCH (22:20)
[2017-07-02] MEDS: ZOLPIDEM TARTRATE 5 MG TABLET PO SCH (22:20)
[2017-07-03] MEDS: IPRATROPIUM/ALBUTEROL 0.5-2.5 MG/3 ML AMPUL NEB SCH ×4 (02:19→20:03)
[2017-07-03 05:32] LABS: ANION GAP 9 (5-19); BLOOD UREA NITROGEN 30 mg/dL (7-20); CALCIUM 9.5 mg/dL (8.4-10.2); CARBON DIOXIDE 39 mmol/L (22-30); CHLORIDE 93 mmol/L (98-107); GLUCOSE 326 mg/dL (75-110); MAGNESIUM 2.2 mg/dL (1.6-2.3); POTASSIUM 3.8 mmol/L (3.6-5.0); SODIUM 141.4 mmol/L (137-145)
[2017-07-03] MEDS: BUDESONIDE NEB 0.5 MG/2 ML AMPUL NEB SCH ×2 (08:42→20:03)
[2017-07-03] MEDS: GLIPIZIDE 5 MG TABLET PO SCH ×2 (08:55→15:29)
[2017-07-03] MEDS: INSULIN LISPRO 100 UNIT/ML 3 ML VIAL SUBCUT PRN ×4 (08:55→22:55)
--- NOTE | 2017-07-03 10:12 | PDOC PROGRESS REPORT ---
Subjective Progress Note for:: 07/03/17 Subjective:: The patient is a 56-year-old female admitted with a combined COPD exacerbation/ congestive heart failure exacerbation. The patient has a history of atrial flutter, congestive heart failure, pulmonary hypertension and end-stage COPD. She presented with increasing shortness of breath despite using her BiPAP machine at home. She has been receiving corticosteroids with mild benefit. She states that she feels that nitroglycerin has improved her symptoms the most. Since admission she has been diuresed 2 L. Sunday, she told me that she feels that her pneumonia is coming back "". Her admission chest x-ray was unremarkable. I repeated a chest x-ray Sunday and this was also unremarkable. Yesterday, she states that she is finally starting to feel better. She now is less short of breath with minimal activities such as eating and speaking. When I saw the patient yesterday morning, she felt that she was starting to turn the corner. However, throughout the day she still had severe dyspnea with minimal activities. Today she is about the same as she was yesterday. She is still extremely dyspneic even with minimal activities. She does not have any significant coughing. Reason For Visit: ACUTE HYPOXEMIC RESPIRATORY FAILURE, COPD Physical Exam Vital Signs: Temp Pulse Resp BP Pulse Ox 97.8 F 86 22 H 137/69 H 96 07/03/17 08:15 07/03/17 08:15 07/03/17 08:15 07/03/17 08:15 07/03/17 08:15 Pulse Oximeter Continuous Start: 06/29/17 00: 33 Freq: RTQ4 Status: Active Document 07/03/17 04:00 STI (Rec: 07/03/17 04:31 STI [email or web address]) Pulse Oximetry Assessment Oxygen Saturation (92-100) 94 Oxygen Delivery Method Bi-pap Fraction of Inspired Oxygen (FIO2) 28 Equipment Usage Equipment Standby Continuous SpO2 Machine # [id number] Intake & Output 07/02/17 07/03/17 07/04/17 06:59 06:59 06:59 Intake Total 1450 1820 Output Total 4300 875 Balance -2850 945 Weight 62.5 kg 61.4 kg Additional comments: The patient appears to be older than her stated age. She is thin but not cachectic. She does have some ear tachypnea at baseline with a respiratory rate of approximately 22-24. Her facial appearance is unremarkable except for the nasal cannula oxygen. Her lungs unfortunately are very diminished. I do not hear any adventitious sounds such as wheezing or rales. Her air excursion is about the same as it was yesterday. Her cardiac exam demonstrates a regular rate and rhythm. Do not appreciate any murmurs, gallops or rubs. The abdomen is soft and flat. Bowel sounds are present in the lower quadrants. There is no guarding or rebound present and there are no hernias or masses present. The lower extremities are warm to touch. The patient does have 1-2+ lower extremity edema left greater than right. Results Laboratory Results: 06/30/17 04:10 07/03/17 04:50 07/03/17 04:50 Sodium 141.4 Potassium 3.8 Chloride 93 L Carbon Dioxide 39 H Anion Gap 9 BUN 30 H Creatinine 0.61 Est GFR ( Amer) > 60 Est GFR (Non-Af Amer) > 60 Glucose 326 H Calcium 9.5 Magnesium 2.2 06/30/17 11:30 Catheterized Urine Urine Culture - Final NO GROWTH 2 DAYS 06/29/17 06/29/17 06/29/17 03:40 03:40 09:05 Creatine Kinase 56 49 CK-MB (CK-2) 1.37 Troponin I 0.029 NT-Pro-B Natriuret Pep 06/29/17 06/29/17 06/29/17 09:05 15:45 15:45 Creatine Kinase 35 CK-MB (CK-2) 1.48 1.27 Troponin I 0.020 0.016 NT-Pro-B Natriuret Pep 06/30/17 04:10 Creatine Kinase CK-MB (CK-2) Troponin I NT-Pro-B Natriuret Pep 245 Impressions: Chest X-Ray 07/01/17 00:00 IMPRESSION: NO ACUTE RADIOGRAPHIC FINDING IN THE CHEST. Assessment & Plan - Diagnosis (1) Acute and chronic respiratory failure with hypoxia Is this a current diagnosis for this admission?: Yes Plan: Patient remains tenuous, but is improved when compared to admission. She finally may be turning the corner, but he is not improved when compared to yesterday, therefore, I would like to continue IV corticosteroids for now. She is also receiving bronchodilators and antibiotics. (2) COPD exacerbation Is this a current diagnosis for this admission?: Yes Plan: See above. I am not sure what this patient's baseline is. I suspect that she has severe disease even at baseline. However, she told me today that she is clearly not ready for discharge. (3) Congestive heart failure Qualifiers: Congestive heart failure type: diastolic Congestive heart failure chronicity: acute on chronic Qualified Code(s): I50.33 - Acute on chronic diastolic (congestive) heart failure Is this a current diagnosis for this admission?: Yes Plan: This is presumably diastolic in nature. Note that Lasix was increased upon admission and patient has diuresed 2 L. The patient is now developing a contraction alkalosis. BUN is also going up. Therefore, yesterday, I decreased the dose of Lasix. (4) Anemia Qualifiers: Anemia type: unspecified type Qualified Code(s): D64.9 - Anemia, unspecified Is this a current diagnosis for this admission?: Yes Plan: Diagnosis is noted as anemia of chronic disease, however, patient is receiving iron. Hemoglobin appears to be stable: 06/30/17. I will not recheck at this time. (5) Anxiety Is this a current diagnosis for this admission?: Yes Plan: Continue Zoloft. (6) Atrial flutter Qualifiers: Atrial flutter type: typical Qualified Code(s): I48.3 - Typical atrial flutter Plan: Continue Eliquis, metoprolol and diltiazem. (7) Diabetes Qualifiers: Diabetes mellitus type: type 2 Is this a current diagnosis for this admission?: Yes Plan: Blood sugars are improved when compared to yesterday but still elevated. 2 days ago glipizide was increased from 2.5 mg daily to 2.5 mg twice daily and yesterday glipizide was increased to 5 mg p.o. twice daily. I also changed her to a carbohydrate controlled diet. We will also continue sliding scale. Sunday , the dose of corticosteroids was also decreased which should improve her blood sugars. (8) HBP (high blood pressure) Qualifiers: Hypertension type: essential hypertension Qualified Code(s): I10 - Essential (primary) hypertension Is this a current diagnosis for this admission?: Yes Plan: Continue metoprolol and diltiazem. Some blood pressures are trending upward. We will need to follow closely due to decreased dose of Lasix. We need to aggressively control blood pressure to control her diastolic dysfunction. Her pressures have been under good control for the last 24 hours. - Time Time Spent with patient: 25-34 minutes - Inpatient Certification Medical Necessity: Significant Comorbidiites Make Outpatient Treatment Too Risky , Need Close Monitoring Due to Risk of Patient Decompensation, Need For Continuous Telemetry Monitoring, Need for Nebulizer Therapy and Monitoring of Response, Risk of Complication if Not Cared For in Hospital
[2017-07-03] MEDS: DILTIAZEM HCL 180 MG CAPSULE.CR PO SCH (10:22)
[2017-07-03] MEDS: SERTRALINE HCL 50 MG TABLET PO SCH (10:22)
[2017-07-03] MEDS: METHYLPREDNISOLONE INJ 40 MG/1 ML SDV IV SCH ×2 (10:22→22:55)
[2017-07-03] MEDS: MULTIVITAMIN TABLET PO SCH (10:23)
[2017-07-03] MEDS: FUROSEMIDE 40 MG TABLET PO SCH (10:23)
[2017-07-03] MEDS: POTASSIUM CHLORIDE 10 MEQ TABLET.SA PO SCH (10:23)
[2017-07-03] MEDS: DIGOXIN 0.125 MG TABLET PO SCH (10:24)
[2017-07-03] MEDS: ASPIRIN 81 MG TABLET, ENT COATED PO SCH (10:24)
[2017-07-03] MEDS: METOPROLOL SUCCINATE 50 MG TAB.SR.24H PO SCH (10:25)
[2017-07-03] MEDS: FOLIC ACID 1 MG TABLET PO SCH (10:25)
[2017-07-03] MEDS: FERROUS SULFATE 325 MG TABLET PO SCH (10:26)
[2017-07-03] MEDS: APIXABAN 5 MG TABLET PO SCH ×2 (10:26→17:02)
[2017-07-03] MEDS: GUAIFENESIN 600 MG TABLET.SA PO SCH ×2 (10:27→23:02)
[2017-07-03] MEDS: NITROGLYCERIN 2.5 MG (0.1 MG/HR) PATCH.TD24 TD SCH (10:34)
[2017-07-03] MEDS ORDERED: INSULIN GLARGINE,HUM.REC.ANLOG 300 UNIT/3 ML INSULN.PEN SUBCUT SCH (22:00)
[2017-07-03] MEDS: LEVOFLOXACIN 750 MG TABLET PO SCH (22:55)
[2017-07-03] MEDS: ZOLPIDEM TARTRATE 5 MG TABLET PO SCH (22:55)
[2017-07-04] MEDS: IPRATROPIUM/ALBUTEROL 0.5-2.5 MG/3 ML AMPUL NEB SCH ×4 (01:59→20:06)
[2017-07-04 05:26] LABS: BLOOD UREA NITROGEN 38 mg/dL (7-20); CALCIUM 9.3 mg/dL (8.4-10.2); CHLORIDE 92 mmol/L (98-107); GLUCOSE 336 mg/dL (75-110); MAGNESIUM 2.2 mg/dL (1.6-2.3)
[2017-07-04 05:36] LABS: ANION GAP 5 (5-19)
[2017-07-04 05:37] LABS: CARBON DIOXIDE 42 mmol/L (22-30)
[2017-07-04] MEDS: BUDESONIDE NEB 0.5 MG/2 ML AMPUL NEB SCH ×2 (08:14→20:06)
[2017-07-04] MEDS: GLIPIZIDE 5 MG TABLET PO SCH ×2 (08:57→16:04)
[2017-07-04] MEDS: INSULIN LISPRO 100 UNIT/ML 3 ML VIAL SUBCUT PRN ×4 (08:58→22:36)
[2017-07-04] MEDS: DIGOXIN 0.125 MG TABLET PO SCH (10:50)
[2017-07-04] MEDS: METHYLPREDNISOLONE INJ 40 MG/1 ML SDV IV SCH (10:50)
[2017-07-04] MEDS: POTASSIUM CHLORIDE 10 MEQ TABLET.SA PO SCH (10:50)
[2017-07-04] MEDS: MULTIVITAMIN TABLET PO SCH (10:51)
[2017-07-04] MEDS: FERROUS SULFATE 325 MG TABLET PO SCH (10:51)
[2017-07-04] MEDS: FUROSEMIDE 40 MG TABLET PO SCH (10:51)
[2017-07-04] MEDS: GUAIFENESIN 600 MG TABLET.SA PO SCH ×2 (10:52→22:37)
[2017-07-04] MEDS: FOLIC ACID 1 MG TABLET PO SCH (10:52)
[2017-07-04] MEDS: DILTIAZEM HCL 180 MG CAPSULE.CR PO SCH (10:52)
[2017-07-04] MEDS: METOPROLOL SUCCINATE 50 MG TAB.SR.24H PO SCH (10:52)
[2017-07-04] MEDS: ASPIRIN 81 MG TABLET, ENT COATED PO SCH (10:52)
[2017-07-04] MEDS: APIXABAN 5 MG TABLET PO SCH ×2 (10:53→18:21)
[2017-07-04] MEDS: NITROGLYCERIN 2.5 MG (0.1 MG/HR) PATCH.TD24 TD SCH (10:55)
[2017-07-04] MEDS: SERTRALINE HCL 50 MG TABLET PO SCH (10:59)
--- NOTE | 2017-07-04 12:29 | PDOC PROGRESS REPORT ---
Subjective Progress Note for:: 07/04/17 Subjective:: The patient is a 56-year-old female admitted with a combined COPD exacerbation/ congestive heart failure exacerbation. The patient has a history of atrial flutter, congestive heart failure, pulmonary hypertension and end-stage COPD. She presented with increasing shortness of breath despite using her BiPAP machine at home. She has been receiving corticosteroids with mild benefit. She states that she feels that nitroglycerin has improved her symptoms the most. Since admission she has been diuresed 2 L. Sunday, she told me that she feels that her pneumonia is coming back "". Her admission chest x-ray was unremarkable. I repeated a chest x-ray Sunday and this was also unremarkable. Sunday started that she is finally starting to feel better. However, yesterday she again had severe dyspnea with minimal activity. Today, she is complaining of severe lightheadedness and dizziness. This just started this morning. She had several questions about her medications and she is wondering if she is getting an excessive dose or excessive number of medications. She states that she normally does not take Zoloft daily. She is also not used Ambien. Reason For Visit: ACUTE HYPOXEMIC RESPIRATORY FAILURE, COPD Physical Exam Vital Signs: Temp Pulse Resp BP Pulse Ox 98.4 F 92 16 146/74 H 96 07/04/17 07:56 07/04/17 08:14 07/04/17 08:14 07/04/17 07:56 07/04/17 08:14 Pulse Oximeter Continuous Start: 06/29/17 00: 33 Freq: RTQ4 Status: Active Document 07/04/17 08:14 [facility] (Rec: 07/04/17 10:59 [facility] [email or web address]) Pulse Oximetry Assessment Oxygen Saturation (92-100) 96 Oxygen Flow Rate (L/min) 2 Oxygen Delivery Method Nasal Cannula Equipment Usage Equipment Standby Continuous SpO2 Machine # [id number] Intake & Output 07/03/17 07/04/17 07/05/17 06:59 06:59 06:59 Intake Total 1820 632 Output Total 874 1350 Balance 945 -718 Weight 61.4 kg Additional comments: The patient appears to be older than his stated age of 56. When I saw her this morning she had just gotten back from the bathroom and she was extremely dyspneic. She generally sits in Fowlers position. The patient's facial appearance is unremarkable. She has severely reduced breath sounds throughout all lung lópez. This is stable for the patient. Her cardiac exam is regular without murmurs, gallops or rubs. The abdomen is soft and flat. Bowel sounds are noted. She does not have guarding or rebound noted. The lower extremities demonstrate 1-2+ edema. Results Laboratory Results: 06/30/17 04:10 07/04/17 04:39 07/04/17 04:39 Sodium 139.0 Potassium 4.0 Chloride 92 L Carbon Dioxide 42 H* Anion Gap 5 BUN 38 H Creatinine 0.72 Est GFR ( Amer) > 60 Est GFR (Non-Af Amer) > 60 Glucose 336 H Calcium 9.3 Magnesium 2.2 06/29/17 06:46 Blood Blood Culture - Final NO GROWTH IN 5 DAYS 06/29/17 03:40 Blood Blood Culture - Final NO GROWTH IN 5 DAYS 06/29/17 06/29/17 06/29/17 03:40 03:40 09:05 Creatine Kinase 56 49 CK-MB (CK-2) 1.37 Troponin I 0.029 NT-Pro-B Natriuret Pep 06/29/17 06/29/17 06/29/17 09:05 15:45 15:45 Creatine Kinase 35 CK-MB (CK-2) 1.48 1.27 Troponin I 0.020 0.016 NT-Pro-B Natriuret Pep 06/30/17 04:10 Creatine Kinase CK-MB (CK-2) Troponin I NT-Pro-B Natriuret Pep 245 Impressions: Chest X-Ray 07/01/17 00:00 IMPRESSION: NO ACUTE RADIOGRAPHIC FINDING IN THE CHEST. Assessment & Plan - Diagnosis (1) Acute and chronic respiratory failure with hypoxia Is this a current diagnosis for this admission?: Yes Plan: Patient remains tenuous, but is improved when compared to admission. I was hoping that she was turning the corner. I did review her pulmonary function tests. She has very advanced COPD. This could be her baseline. She was scheduled to begin pulmonary rehabilitation after her last discharge. She does agree to resume pulmonary rehabilitation when she is discharged from the hospital this time. She follows with Dr. Talbot. (2) COPD exacerbation Is this a current diagnosis for this admission?: Yes Plan: See above. Today, I am going to switch her to oral corticosteroids. (3) Congestive heart failure Qualifiers: Congestive heart failure type: diastolic Congestive heart failure chronicity: acute on chronic Qualified Code(s): I50.33 - Acute on chronic diastolic (congestive) heart failure Is this a current diagnosis for this admission?: Yes Plan: This is presumably diastolic in nature. Note that Lasix was increased upon admission and patient has diuresed 2 L. The patient is now developing a contraction alkalosis. BUN is also going up. Therefore, two days ago I decreased the patient's dose of lasix to 40mg once per day. (4) Anemia Qualifiers: Anemia type: unspecified type Qualified Code(s): D64.9 - Anemia, unspecified Is this a current diagnosis for this admission?: Yes Plan: Diagnosis is noted as anemia of chronic disease, however, patient is receiving iron. Hemoglobin appears to be stable: 06/30/17. I will not recheck at this time. (5) Anxiety Is this a current diagnosis for this admission?: Yes Plan: The patient is stating that she is complaining of dizziness. She thinks it may be related to the Zoloft and the Ambien. I have ordered orthostatic vital signs. Certainly, this could be the increase in her antihypertensives. In any event she states that she does not take the Zoloft on a regular basis. While I do not think it is related to the Zoloft since it is only 25 mg per day I will go ahead and discontinue the Zoloft and the Ambien at her request. (6) Atrial flutter Qualifiers: Atrial flutter type: typical Qualified Code(s): I48.3 - Typical atrial flutter Plan: Continue Eliquis, metoprolol and diltiazem. (7) Diabetes Qualifiers: Diabetes mellitus type: type 2 Is this a current diagnosis for this admission?: Yes Plan: Blood sugars are improved when compared to yesterday but still elevated. 3 days ago glipizide was increased from 2.5 mg daily to 2.5 mg twice daily and Sunday glipizide was increased to 5 mg p.o. twice daily. I also changed her to a carbohydrate controlled diet. We will also continue sliding scale. Sunday, the dose of corticosteroids was also decreased which should improve her blood sugars. Nursing staff have reported that the patient's family is bringing food in. She has been advised not to eat concentrated sweets. (8) HBP (high blood pressure) Qualifiers: Hypertension type: essential hypertension Qualified Code(s): I10 - Essential (primary) hypertension Is this a current diagnosis for this admission?: Yes Plan: Continue metoprolol and diltiazem. Some blood pressures are trending upward. We will need to follow closely due to decreased dose of Lasix. We need to aggressively control blood pressure to control her diastolic dysfunction. Her pressures have been under good control for the last 24 hours. - Time Time Spent with patient: 25-34 minutes - Inpatient Certification Medical Necessity: Significant Comorbidiites Make Outpatient Treatment Too Risky , Need Close Monitoring Due to Risk of Patient Decompensation, Need for Nebulizer Therapy and Monitoring of Response, Risk of Complication if Not Cared For in Hospital
--- NOTE | 2017-07-04 13:51 | PDOC PROGRESS REPORT ---
Subjective Progress Note for:: 07/04/17 Subjective:: I am very weak Reason For Visit: ACUTE HYPOXEMIC RESPIRATORY FAILURE, COPD Physical Exam Vital Signs: Temp Pulse Resp BP Pulse Ox 98.4 F 92 16 146/74 H 96 07/04/17 07:56 07/04/17 08:14 07/04/17 08:14 07/04/17 07:56 07/04/17 08:14 Pulse Oximeter Continuous Start: 06/29/17 00: 33 Freq: RTQ4 Status: Active Document 07/04/17 13:41 [facility] (Rec: 07/04/17 13:42 [facility] [email or web address]) Pulse Oximetry Assessment Equipment Usage Equipment Standby Continuous SpO2 Machine # N-10 Intake & Output 07/03/17 07/04/17 07/05/17 06:59 06:59 06:59 Intake Total 1820 632 Output Total 875 1350 Balance 945 -718 Weight 61.4 kg General appearance: PRESENT: no acute distress, cooperative, disheveled, thin. ABSENT: mild distress, morbidly obese, obese, severe distress Head exam: PRESENT: atraumatic, normocephalic Eye exam: PRESENT: conjunctiva pale, EOMI. ABSENT: conjunctival injection, conjunctiva pink, nystagmus, periorbital swelling, scleral icterus Mouth exam: PRESENT: dry mucosa, neck supple, tongue midline. ABSENT: laceration, moist Teeth exam: PRESENT: poor dentation Neck exam: ABSENT: carotid bruit, JVD, lymphadenopathy, thyromegaly, tracheal deviation, tracheostomy Respiratory exam: PRESENT: decreased breath sounds, prolonged expiratory phas, rales, rhonchi, symmetrical, unlabored, wheezes. ABSENT: accessory muscle use, chest wall tenderness, clear to auscultation martínez, crackles, retraction, stridor , tachypnea Cardiovascular exam: PRESENT: RRR, +S1, +S2 Pulses: PRESENT: normal radial pulses GI/Abdominal exam: PRESENT: diminished bowel sounds, soft Extremities exam: ABSENT: clubbing, joint swelling Musculoskeletal exam: ABSENT: deformity, dislocation, tenderness Neurological exam: PRESENT: alert, awake Psychiatric exam: PRESENT: flat affect Skin exam: PRESENT: dry, warm Results Laboratory Results: 06/30/17 04:10 07/04/17 04:39 07/04/17 04:39 Sodium 139.0 Potassium 4.0 Chloride 92 L Carbon Dioxide 42 H* Anion Gap 5 BUN 38 H Creatinine 0.72 Est GFR ( Amer) > 60 Est GFR (Non-Af Amer) > 60 Glucose 336 H Calcium 9.3 Magnesium 2.2 06/29/17 06:46 Blood Blood Culture - Final NO GROWTH IN 5 DAYS 06/29/17 03:40 Blood Blood Culture - Final NO GROWTH IN 5 DAYS 06/29/17 06/29/17 06/29/17 03:40 03:40 09:05 Creatine Kinase 56 49 CK-MB (CK-2) 1.37 Troponin I 0.029 NT-Pro-B Natriuret Pep 06/29/17 06/29/17 06/29/17 09:05 15:45 15:45 Creatine Kinase 35 CK-MB (CK-2) 1.48 1.27 Troponin I 0.020 0.016 NT-Pro-B Natriuret Pep 06/30/17 04:10 Creatine Kinase CK-MB (CK-2) Troponin I NT-Pro-B Natriuret Pep 245 Impressions: Chest X-Ray 07/01/17 00:00 IMPRESSION: NO ACUTE RADIOGRAPHIC FINDING IN THE CHEST. Assessment & Plan - Diagnosis (1) Acute and chronic respiratory failure with hypoxia Is this a current diagnosis for this admission?: Yes Plan: extremely decreased airflow (2) COPD exacerbation Is this a current diagnosis for this admission?: Yes Plan: Generic Name Dose Route Start Last Admin Trade Name Freq PRN Reason Stop Dose Admin Guaifenesin 600 mg 07/02/17 22:00 Mucinex Sr 600 Mg Tablet.Sa PO 07/29/17 09:59 Q12 ANA Zolpidem Tartrate 2.5 mg 06/30/17 22:00 07/01/17 21:42 Ambien 5 Mg Tablet PO 07/07/17 21:59 2.5 mg QHS ANA Budesonide 0.5 mg 06/29/17 20:00 07/02/17 08:33 Pulmicort Neb 0.5 Mg/2 Ml Ampul NEB 07/29/17 19:59 0.5 mg RTQ12 ANA Methylprednisolone Sodium Succinate 40 mg 07/01/17 22:00 07/02/17 09:56 Solu-Medrol Inj/Pf 40 Mg/1 Ml Sdv IV 07/31/17 21:59 40 mg Q12 ANA Albuterol/Ipratropium 3 ml 06/29/17 02:00 07/02/17 08:33 Duoneb 3 Ml Ampul NEB 07/29/17 01:59 3 ml RTQ6 ANA Levalbuterol HCl 1.25 mg 07/02/17 08:30 Xopenex Neb 1.25 Mg/3 Ml Ampul NEB 07/29/17 00:31 RTQ2HP PRN WHEEZING/DYSPNEA Methylprednisolone Sodium Succinate 60 mg 06/07/17 22:00 06/12/17 07:11 Solu-Medrol Inj/Pf 125 Mg/2 Ml Sdv IV 07/07/17 21:59 60 mg Q8 ANA Levalbuterol HCl 1.25 mg 06/09/17 12:00 06/12/17 08:06 Xopenex Neb 1.25 Mg/3 Ml Ampul NEB 07/09/17 11:59 1.25 mg RTQ4 ANA Fluticasone Propionate 2 spray 06/08/17 10:00 06/11/17 09:44 Flonase Nasal [place] 50 Mcg/[place] 16 Gm NASL 07/08/17 09:59 2 spray DAILY ANA (3) Anemia Qualifiers: Anemia type: unspecified type Qualified Code(s): D64.9 - Anemia, unspecified Is this a current diagnosis for this admission?: Yes Plan: Chronic disease (4) Anxiety Is this a current diagnosis for this admission?: Yes (5) Atrial fibrillation with RVR Is this a current diagnosis for this admission?: Yes Plan: Ventricular response appears to be well controlled
[2017-07-04] MEDS ORDERED: GLUCAGON,HUMAN RECOMB 1 MG INJ IM PRN (17:17)
[2017-07-04] MEDS ORDERED: DEXTROSE 50%-WATER 25 GM/50 ML DISP.SYRIN IV PRN ×2 (17:17)
[2017-07-04] MEDS ORDERED: DEXTROSE 40% GEL 15 GM TUBE PO PRN ×2 (17:17)
[2017-07-04] MEDS ORDERED: PREDNISONE 20 MG TABLET PO SCH (18:00)
[2017-07-04] MEDS: PREDNISONE 20 MG TABLET PO SCH (18:22)
[2017-07-04] MEDS: INSULIN GLARGINE,HUM.REC.ANLOG 300 UNIT/3 ML INSULN.PEN SUBCUT SCH (22:36)
[2017-07-05] MEDS: IPRATROPIUM/ALBUTEROL 0.5-2.5 MG/3 ML AMPUL NEB SCH ×3 (01:48→13:49)
[2017-07-05 05:49] LABS: BLOOD UREA NITROGEN 34 mg/dL (7-20); CHLORIDE 91 mmol/L (98-107); GLUCOSE 250 mg/dL (75-110); SODIUM 139.2 mmol/L (137-145)
[2017-07-05 06:03] LABS: ANION GAP 5 (5-19)
[2017-07-05 06:04] LABS: CARBON DIOXIDE 43 mmol/L (22-30)
[2017-07-05] MEDS: BUDESONIDE NEB 0.5 MG/2 ML AMPUL NEB SCH ×2 (07:57→19:49)
[2017-07-05] MEDS: INSULIN LISPRO 100 UNIT/ML 3 ML VIAL SUBCUT SCH ×3 (08:36→17:16)
[2017-07-05] MEDS: GLIPIZIDE 5 MG TABLET PO SCH ×2 (08:37→17:19)
[2017-07-05] MEDS: POTASSIUM CHLORIDE 10 MEQ TABLET.SA PO SCH (10:07)
[2017-07-05] MEDS: DIGOXIN 0.125 MG TABLET PO SCH (10:10)
[2017-07-05] MEDS: DILTIAZEM HCL 180 MG CAPSULE.CR PO SCH (10:10)
[2017-07-05] MEDS: FERROUS SULFATE 325 MG TABLET PO SCH (10:10)
[2017-07-05] MEDS: FUROSEMIDE 40 MG TABLET PO SCH (10:11)
[2017-07-05] MEDS: PREDNISONE 20 MG TABLET PO SCH ×2 (10:11→17:18)
[2017-07-05] MEDS: FOLIC ACID 1 MG TABLET PO SCH (10:12)
[2017-07-05] MEDS: METOPROLOL SUCCINATE 50 MG TAB.SR.24H PO SCH (10:12)
[2017-07-05] MEDS: APIXABAN 5 MG TABLET PO SCH ×2 (10:13→17:19)
[2017-07-05] MEDS: MULTIVITAMIN TABLET PO SCH (10:14)
[2017-07-05] MEDS: NITROGLYCERIN 2.5 MG (0.1 MG/HR) PATCH.TD24 TD SCH (10:14)
[2017-07-05] MEDS: ASPIRIN 81 MG TABLET, ENT COATED PO SCH (10:14)
[2017-07-05] MEDS: GUAIFENESIN 600 MG TABLET.SA PO SCH ×2 (10:17→22:13)
[2017-07-05] MEDS: INSULIN LISPRO 100 UNIT/ML 3 ML VIAL SUBCUT PRN ×3 (10:33→22:13)
--- NOTE | 2017-07-05 17:55 | PDOC PROGRESS REPORT ---
Subjective Progress Note for:: 07/05/17 Subjective:: i m better Reason For Visit: ACUTE HYPOXEMIC RESPIRATORY FAILURE, COPD Physical Exam Vital Signs: Temp Pulse Resp BP Pulse Ox 98.6 F 87 22 H 138/71 H 96 07/05/17 08:48 07/05/17 14:00 07/05/17 13:49 07/05/17 08:48 07/05/17 16:17 Pulse Oximeter Continuous Start: 06/29/17 00: 33 Freq: RTQ4 Status: Active Document 07/05/17 16:17 TPO (Rec: 07/05/17 16:17 TPO [email or web address]) Pulse Oximetry Assessment Oxygen Saturation (92-100) 96 Oxygen Flow Rate (L/min) 2 Oxygen Delivery Method Nasal Cannula Fraction of Inspired Oxygen (FIO2) 28 Equipment Usage Equipment Standby Continuous SpO2 Machine # 10 Intake & Output 07/04/17 07/05/17 07/06/17 06:59 06:59 06:59 Intake Total 632 843 Output Total 1350 800 Balance -718 43 Weight 64.3 kg General appearance: PRESENT: no acute distress, cooperative, disheveled, thin. ABSENT: mild distress, morbidly obese, obese, severe distress Head exam: PRESENT: atraumatic, normocephalic Eye exam: PRESENT: conjunctiva pale, EOMI. ABSENT: conjunctival injection, conjunctiva pink, nystagmus, periorbital swelling, scleral icterus Mouth exam: PRESENT: dry mucosa, neck supple, tongue midline. ABSENT: laceration, moist Teeth exam: PRESENT: edentulous Neck exam: ABSENT: carotid bruit, JVD, lymphadenopathy, thyromegaly, tracheal deviation, tracheostomy Respiratory exam: PRESENT: decreased breath sounds, prolonged expiratory phas, rales, rhonchi, symmetrical, unlabored, wheezes. ABSENT: accessory muscle use, chest wall tenderness, clear to auscultation martínez, crackles, retraction, stridor , tachypnea Cardiovascular exam: PRESENT: RRR, +S1, +S2 Pulses: PRESENT: normal radial pulses GI/Abdominal exam: PRESENT: diminished bowel sounds, rigid Extremities exam: PRESENT: full ROM. ABSENT: clubbing, joint swelling Musculoskeletal exam: PRESENT: ambulatory, full ROM. ABSENT: deformity, dislocation Neurological exam: PRESENT: alert, awake Psychiatric exam: PRESENT: normal mood Skin exam: PRESENT: dry, pallor Results Laboratory Results: 06/30/17 04:10 07/05/17 04:37 07/05/17 04:37 Sodium 139.2 Potassium 4.0 Chloride 91 L Carbon Dioxide 43 H* Anion Gap 5 BUN 34 H Creatinine 0.63 Est GFR ( Amer) > 60 Est GFR (Non-Af Amer) > 60 Glucose 250 H Calcium 9.0 06/29/17 06/29/17 06/29/17 03:40 03:40 09:05 Creatine Kinase 56 49 CK-MB (CK-2) 1.37 Troponin I 0.029 NT-Pro-B Natriuret Pep 06/29/17 06/29/17 06/29/17 09:05 15:45 15:45 Creatine Kinase 35 CK-MB (CK-2) 1.48 1.27 Troponin I 0.020 0.016 NT-Pro-B Natriuret Pep 06/30/17 04:10 Creatine Kinase CK-MB (CK-2) Troponin I NT-Pro-B Natriuret Pep 245 Impressions: Chest X-Ray 07/01/17 00:00 IMPRESSION: NO ACUTE RADIOGRAPHIC FINDING IN THE CHEST. Assessment & Plan - Diagnosis (1) Acute and chronic respiratory failure with hypoxia Is this a current diagnosis for this admission?: Yes Plan: improving (2) COPD exacerbation Is this a current diagnosis for this admission?: Yes (3) Anemia Qualifiers: Anemia type: unspecified type Qualified Code(s): D64.9 - Anemia, unspecified Is this a current diagnosis for this admission?: Yes Plan: Chronic disease (4) Anxiety Is this a current diagnosis for this admission?: Yes Plan: stable (5) Atrial fibrillation with RVR Is this a current diagnosis for this admission?: Yes Plan: Ventricular response appears to be well controlled
--- NOTE | 2017-07-05 17:58 | PDOC PROGRESS REPORT ---
Subjective Progress Note for:: 07/03/17 Subjective:: i m still weak and short winded Reason For Visit: ACUTE HYPOXEMIC RESPIRATORY FAILURE, COPD Physical Exam Vital Signs: Temp Pulse Resp BP Pulse Ox 98.6 F 87 22 H 138/71 H 96 07/05/17 08:48 07/05/17 14:00 07/05/17 13:49 07/05/17 08:48 07/05/17 16:17 Pulse Oximeter Continuous Start: 06/29/17 00: 33 Freq: RTQ4 Status: Active Document 07/05/17 16:17 TPO (Rec: 07/05/17 16:17 TPO [email or web address]) Pulse Oximetry Assessment Oxygen Saturation (92-100) 96 Oxygen Flow Rate (L/min) 2 Oxygen Delivery Method Nasal Cannula Fraction of Inspired Oxygen (FIO2) 28 Equipment Usage Equipment Standby Continuous SpO2 Machine # 10 Intake & Output 07/04/17 07/05/17 07/06/17 06:59 06:59 06:59 Intake Total 632 843 Output Total 1350 800 Balance -718 43 Weight 64.3 kg General appearance: PRESENT: no acute distress, cooperative, disheveled, thin. ABSENT: mild distress, morbidly obese, obese, severe distress Head exam: PRESENT: atraumatic, normocephalic Eye exam: PRESENT: conjunctiva pale, EOMI. ABSENT: conjunctival injection, conjunctiva pink, nystagmus, periorbital swelling, scleral icterus Mouth exam: PRESENT: dry mucosa, neck supple, tongue midline. ABSENT: laceration, moist Teeth exam: PRESENT: edentulous Neck exam: ABSENT: carotid bruit, JVD, lymphadenopathy, thyromegaly, tracheal deviation, tracheostomy Respiratory exam: PRESENT: decreased breath sounds, prolonged expiratory phas, rales, rhonchi, symmetrical, unlabored, wheezes. ABSENT: accessory muscle use, chest wall tenderness, clear to auscultation martínez, crackles, retraction, stridor , tachypnea Cardiovascular exam: PRESENT: RRR, +S1, +S2 Pulses: PRESENT: normal radial pulses GI/Abdominal exam: PRESENT: diminished bowel sounds, soft Extremities exam: ABSENT: joint swelling Musculoskeletal exam: PRESENT: ambulatory. ABSENT: deformity, dislocation Neurological exam: PRESENT: alert, awake Psychiatric exam: PRESENT: flat affect Skin exam: PRESENT: dry, warm Results Laboratory Results: 06/30/17 04:10 07/05/17 04:37 07/05/17 04:37 Sodium 139.2 Potassium 4.0 Chloride 91 L Carbon Dioxide 43 H* Anion Gap 5 BUN 34 H Creatinine 0.63 Est GFR ( Amer) > 60 Est GFR (Non-Af Amer) > 60 Glucose 250 H Calcium 9.0 06/29/17 06/29/17 06/29/17 03:40 03:40 09:05 Creatine Kinase 56 49 CK-MB (CK-2) 1.37 Troponin I 0.029 NT-Pro-B Natriuret Pep 06/29/17 06/29/17 06/29/17 09:05 15:45 15:45 Creatine Kinase 35 CK-MB (CK-2) 1.48 1.27 Troponin I 0.020 0.016 NT-Pro-B Natriuret Pep 06/30/17 04:10 Creatine Kinase CK-MB (CK-2) Troponin I NT-Pro-B Natriuret Pep 245 Impressions: Chest X-Ray 07/01/17 00:00 IMPRESSION: NO ACUTE RADIOGRAPHIC FINDING IN THE CHEST. Assessment & Plan - Diagnosis (1) Acute and chronic respiratory failure with hypoxia Is this a current diagnosis for this admission?: Yes Plan: improving (2) COPD exacerbation Is this a current diagnosis for this admission?: Yes Plan: Generic Name Dose Route Start Last Admin Trade Name Mary PRN Reason Stop Dose Admin Guaifenesin 600 mg 07/02/17 22:00 Mucinex Sr 600 Mg Tablet.Sa PO 07/29/17 09:59 Q12 ANA Zolpidem Tartrate 2.5 mg 06/30/17 22:00 07/01/17 21:42 Ambien 5 Mg Tablet PO 07/07/17 21:59 2.5 mg QHS ANA Budesonide 0.5 mg 06/29/17 20:00 07/02/17 08:33 Pulmicort Neb 0.5 Mg/2 Ml Ampul NEB 07/29/17 19:59 0.5 mg RTQ12 ANA Methylprednisolone Sodium Succinate 40 mg 07/01/17 22:00 07/02/17 09:56 Solu-Medrol Inj/Pf 40 Mg/1 Ml Sdv IV 07/31/17 21:59 40 mg Q12 ANA Albuterol/Ipratropium 3 ml 06/29/17 02:00 07/02/17 08:33 Duoneb 3 Ml Ampul NEB 07/29/17 01:59 3 ml RTQ6 ANA Levalbuterol HCl 1.25 mg 07/02/17 08:30 Xopenex Neb 1.25 Mg/3 Ml Ampul NEB 07/29/17 00:31 RTQ2HP PRN WHEEZING/DYSPNEA Methylprednisolone Sodium Succinate 60 mg 06/07/17 22:00 06/12/17 07:11 Solu-Medrol Inj/Pf 125 Mg/2 Ml Sdv IV 07/07/17 21:59 60 mg Q8 ANA Levalbuterol HCl 1.25 mg 06/09/17 12:00 06/12/17 08:06 Xopenex Neb 1.25 Mg/3 Ml Ampul NEB 07/09/17 11:59 1.25 mg RTQ4 ANA Fluticasone Propionate 2 spray 06/08/17 10:00 06/11/17 09:44 Flonase Nasal [place] 50 Mcg/[place] 16 Gm NASL 07/08/17 09:59 2 spray DAILY AAN (3) Anemia Qualifiers: Anemia type: unspecified type Qualified Code(s): D64.9 - Anemia, unspecified Is this a current diagnosis for this admission?: Yes Plan: Chronic disease (4) Anxiety Is this a current diagnosis for this admission?: Yes Plan: stable (5) Atrial fibrillation with RVR Is this a current diagnosis for this admission?: Yes Plan: Ventricular response appears to be well controlled
--- NOTE | 2017-07-05 18:01 | PDOC PROGRESS REPORT ---
Subjective Progress Note for:: 07/05/17 Subjective:: She does get short of breath with exertion. Mild dry cough. Reason For Visit: ACUTE HYPOXEMIC RESPIRATORY FAILURE, COPD Physical Exam Vital Signs: Temp Pulse Resp BP Pulse Ox 98.6 F 87 22 H 138/71 H 96 07/05/17 08:48 07/05/17 14:00 07/05/17 13:49 07/05/17 08:48 07/05/17 16:17 Pulse Oximeter Continuous Start: 06/29/17 00: 33 Freq: RTQ4 Status: Active Document 07/05/17 16:17 TPO (Rec: 07/05/17 16:17 TPO [email or web address]) Pulse Oximetry Assessment Oxygen Saturation (92-100) 96 Oxygen Flow Rate (L/min) 2 Oxygen Delivery Method Nasal Cannula Fraction of Inspired Oxygen (FIO2) 28 Equipment Usage Equipment Standby Continuous SpO2 Machine # 10 Intake & Output 07/04/17 07/05/17 07/06/17 06:59 06:59 06:59 Intake Total 632 843 Output Total 1350 800 Balance -718 43 Weight 64.3 kg General appearance: PRESENT: no acute distress Head exam: PRESENT: atraumatic, normocephalic Ear exam: PRESENT: normal external ear exam Neck exam: ABSENT: tracheal deviation Respiratory exam: PRESENT: accessory muscle use, prolonged expiratory phas, wheezes. ABSENT: crackles Cardiovascular exam: PRESENT: RRR GI/Abdominal exam: PRESENT: normal bowel sounds, soft. ABSENT: tenderness Results Laboratory Results: 06/30/17 04:10 07/05/17 04:37 07/05/17 04:37 Sodium 139.2 Potassium 4.0 Chloride 91 L Carbon Dioxide 43 H* Anion Gap 5 BUN 34 H Creatinine 0.63 Est GFR ( Amer) > 60 Est GFR (Non-Af Amer) > 60 Glucose 250 H Calcium 9.0 06/29/17 06/29/17 06/29/17 03:40 03:40 09:05 Creatine Kinase 56 49 CK-MB (CK-2) 1.37 Troponin I 0.029 NT-Pro-B Natriuret Pep 06/29/17 06/29/17 06/29/17 09:05 15:45 15:45 Creatine Kinase 35 CK-MB (CK-2) 1.48 1.27 Troponin I 0.020 0.016 NT-Pro-B Natriuret Pep 06/30/17 04:10 Creatine Kinase CK-MB (CK-2) Troponin I NT-Pro-B Natriuret Pep 245 Impressions: Chest X-Ray 07/01/17 00:00 IMPRESSION: NO ACUTE RADIOGRAPHIC FINDING IN THE CHEST. Assessment & Plan - Time Time Spent with patient: 25-34 minutes - Plan Summary Plan Summary: Assessment Acute on chronic respiratory failure with hypoxia COPD exacerbation Diastolic congestive heart failure exacerbation Anemia chronic disease Hypertension Diabetes Atrial flutter Anxiety None: Continue metoprolol Cardizem and Eliquis He has been diuresed adequately. Steroids have been switched to p.o. Nebs will be switched to Xopenex to reduce the palpitations. 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
[2017-07-05] MEDS: LEVALBUTEROL HCL NEB 0.63 MG/3 ML AMPUL NEB SCH (19:49)
[2017-07-05] MEDS: INSULIN GLARGINE,HUM.REC.ANLOG 300 UNIT/3 ML INSULN.PEN SUBCUT SCH (22:13)
[2017-07-06] MEDS: ACETAMINOPHEN 325 MG TABLET PO PRN (02:25)
[2017-07-06 05:46] LABS: BLOOD UREA NITROGEN 33 mg/dL (7-20); CALCIUM 8.9 mg/dL (8.4-10.2); CHLORIDE 94 mmol/L (98-107); GLUCOSE 195 mg/dL (75-110); POTASSIUM 4.2 mmol/L (3.6-5.0)
[2017-07-06 06:03] LABS: ANION GAP 5 (5-19)
[2017-07-06 06:06] LABS: CARBON DIOXIDE 41 mmol/L (22-30)
[2017-07-06] MEDS: LEVALBUTEROL HCL NEB 0.63 MG/3 ML AMPUL NEB SCH ×3 (08:00→19:54)
[2017-07-06] MEDS: BUDESONIDE NEB 0.5 MG/2 ML AMPUL NEB SCH ×2 (08:19→19:54)
--- NOTE | 2017-07-06 10:24 | RADIOLOGY REPORT (SQ) ---
EXAM DESCRIPTION: CHEST PA/LAT COMPLETED DATE/TIME: 07/06/2017 9:59 am REASON FOR STUDY: dyspnea COMPARISON: 06/05/2017 EXAM PARAMETERS: NUMBER OF VIEWS: two views TECHNIQUE: Digital Frontal and Lateral radiographic views of the chest acquired. RADIATION DOSE: NA LIMITATIONS: none FINDINGS: LUNGS AND PLEURA: Oblique linear density is identified best seen in the lateral projection which could represent atelectatic changes or represent fluid within the major fissure. On the PA fi lm this appears to be in the right lung. Remaining lung lópez are clear. Again there is evidence f or obstructive lung disease. MEDIASTINUM AND HILAR STRUCTURES: No masses or contour abnormalities. HEART AND VASCULAR STRUCTURES: Heart normal size. No evidence for failure. BONES: No acute findings. HARDWARE: None in the chest. OTHER: No other significant finding. IMPRESSION: Oblique linear density best seen in the lateral projection as noted above which could re present atelectatic changes or represent fluid within the major fissure. Remaining lung lópez are c lear. Again there is evidence for obstructive lung disease. Other findings as noted above TECHNICAL DOCUMENTATION: JOB ID: [id number] [employer]- All Rights Reserved
[2017-07-06] MEDS: INSULIN LISPRO 100 UNIT/ML 3 ML VIAL SUBCUT PRN ×4 (10:56→21:23)
[2017-07-06] MEDS: INSULIN LISPRO 100 UNIT/ML 3 ML VIAL SUBCUT SCH ×4 (10:56→17:40)
[2017-07-06] MEDS: POTASSIUM CHLORIDE 10 MEQ TABLET.SA PO SCH (10:59)
[2017-07-06] MEDS: GLIPIZIDE 5 MG TABLET PO SCH ×2 (11:00→16:33)
[2017-07-06] MEDS: DILTIAZEM HCL 180 MG CAPSULE.CR PO SCH (11:00)
[2017-07-06] MEDS: PREDNISONE 20 MG TABLET PO SCH ×2 (11:00→17:40)
[2017-07-06] MEDS: MULTIVITAMIN TABLET PO SCH (11:01)
[2017-07-06] MEDS: FOLIC ACID 1 MG TABLET PO SCH (11:01)
[2017-07-06] MEDS: FERROUS SULFATE 325 MG TABLET PO SCH (11:02)
[2017-07-06] MEDS: FUROSEMIDE 40 MG TABLET PO SCH (11:02)
[2017-07-06] MEDS: APIXABAN 5 MG TABLET PO SCH ×2 (11:02→17:40)
[2017-07-06] MEDS: METOPROLOL SUCCINATE 50 MG TAB.SR.24H PO SCH (11:03)
[2017-07-06] MEDS: DIGOXIN 0.125 MG TABLET PO SCH (11:03)
[2017-07-06] MEDS: ASPIRIN 81 MG TABLET, ENT COATED PO SCH (11:03)
[2017-07-06] MEDS: GUAIFENESIN 600 MG TABLET.SA PO SCH ×2 (11:05→21:25)
[2017-07-06] MEDS: NITROGLYCERIN 2.5 MG (0.1 MG/HR) PATCH.TD24 TD SCH (11:05)
--- NOTE | 2017-07-06 16:04 | PDOC PROGRESS REPORT ---
Subjective Progress Note for:: 07/06/17 Subjective:: 56-year-old female with past medical history of Atrial flutter on anticoagulation Pulmonary hypertension End-stage COPD on home oxygen She presented to the hospital on June 29 with shortness of breath and leg swelling with cough. She had recently been on a course of antibiotics and steroids at that completed a few days prior to admission. She was admitted to the hospital for acute on chronic hypoxic respiratory failure due to a combination of COPD exacerbation and diastolic CHF exacerbation. Last echocardiogram was in November 2016. Left ventricular ejection fraction was normal. Normal left ventricle wall thickness. Mild to moderate mitral regurgitation moderately dilated left atrium. She was treated with IV Lasix bronchodilators and IV steroids. Reason For Visit: ACUTE HYPOXEMIC RESPIRATORY FAILURE, COPD Physical Exam Vital Signs: Temp Pulse Resp BP Pulse Ox 98.0 F 72 22 H 141/83 H 100 07/06/17 07:38 07/06/17 07:38 07/06/17 07:38 07/06/17 07:38 07/06/17 07:38 Pulse Oximeter Continuous Start: 06/29/17 00: 33 Freq: RTQ4 Status: Active Document 07/06/17 04:27 EAL (Rec: 07/06/17 04:50 EAL [email or web address]) Pulse Oximetry Assessment Oxygen Saturation (92-100) 98 Oxygen Delivery Method Bi-pap Fraction of Inspired Oxygen (FIO2) 28 Equipment Usage Equipment Standby Continuous SpO2 Machine # 10 Intake & Output 07/05/17 07/06/17 07/07/17 06:59 06:59 06:59 Intake Total 843 485 Output Total 800 Balance 43 485 Weight 64.3 kg 62.7 kg Results Laboratory Results: 06/30/17 04:10 07/06/17 05:01 07/06/17 05:01 Sodium 140.0 Potassium 4.2 Chloride 94 L Carbon Dioxide 41 H* Anion Gap 5 BUN 33 H Creatinine 0.60 Est GFR ( Amer) > 60 Est GFR (Non-Af Amer) > 60 Glucose 195 H Calcium 8.9 06/29/17 06/29/17 06/29/17 03:40 03:40 09:05 Creatine Kinase 56 49 CK-MB (CK-2) 1.37 Troponin I 0.029 NT-Pro-B Natriuret Pep 06/29/17 06/29/17 06/29/17 09:05 15:45 15:45 Creatine Kinase 35 CK-MB (CK-2) 1.48 1.27 Troponin I 0.020 0.016 NT-Pro-B Natriuret Pep 06/30/17 04:10 Creatine Kinase CK-MB (CK-2) Troponin I NT-Pro-B Natriuret Pep 245 Impressions: Chest X-Ray 07/01/17 00:00 IMPRESSION: NO ACUTE RADIOGRAPHIC FINDING IN THE CHEST. Assessment & Plan - Diagnosis (1) Acute on chronic respiratory failure with hypoxia and hypercapnia Is this a current diagnosis for this admission?: Yes (2) COPD exacerbation Is this a current diagnosis for this admission?: Yes Plan: IV steroids switched to p.o. Continue bronchodilators and home inhalers. Continue supplemental oxygen. (3) Diastolic CHF due to valvular disease Is this a current diagnosis for this admission?: Yes Plan: Acute exacerbation. Treated with IV Lasix. Next (5) Hypertension Is this a current diagnosis for this admission?: Yes Plan: No current medications per (6) Anxiety Is this a current diagnosis for this admission?: Yes (7) Atrial flutter Qualifiers: Atrial flutter type: typical Qualified Code(s): I48.3 - Typical atrial flutter Plan: Eliquis metoprolol digoxin and Cardizem. (8) Diabetes Qualifiers: Diabetes mellitus type: type 2 Is this a current diagnosis for this admission?: Yes Plan: Continue Lantus, sliding scale and glipizide.
--- NOTE | 2017-07-06 16:04 | PDOC PROGRESS REPORT ---
Subjective Progress Note for:: 07/06/17 Subjective:: 56-year-old female with past medical history of Atrial flutter on anticoagulation Pulmonary hypertension End-stage COPD on home oxygen She presented to the hospital on June 29 with shortness of breath and leg swelling with cough. She had recently been on a course of antibiotics and steroids at that completed a few days prior to admission. She was admitted to the hospital for acute on chronic hypoxic respiratory failure due to a combination of COPD exacerbation and diastolic CHF exacerbation. Last echocardiogram was in November 2016. Left ventricular ejection fraction was normal. Normal left ventricle wall thickness. Mild to moderate mitral regurgitation moderately dilated left atrium. She was treated with IV Lasix bronchodilators and IV steroids. She wishes to be a full code. She continues to feel short of breath. I explained to her that she has end-stage COPD, but she does not want to discuss this topic any further. Reason For Visit: ACUTE HYPOXEMIC RESPIRATORY FAILURE, COPD Physical Exam Vital Signs: Temp Pulse Resp BP Pulse Ox 97.8 F 63 14 120/67 99 07/06/17 12:14 07/06/17 14:50 07/06/17 14:50 07/06/17 12:14 07/06/17 12:14 Pulse Oximeter Continuous Start: 06/29/17 00: 33 Freq: RTQ4 Status: Hold Document 07/06/17 08:00 [facility] (Rec: 07/06/17 10:57 [facility] [email or web address]) Pulse Oximetry Assessment Oxygen Saturation (92-100) 100 Oxygen Flow Rate (L/min) 2 Oxygen Delivery Method Nasal Cannula Equipment Usage Equipment Standby Continuous SpO2 Machine # N-10 Intake & Output 07/05/17 07/06/17 07/07/17 06:59 06:59 06:59 Intake Total 843 485 555 Output Total 800 Balance 43 485 555 Weight 64.3 kg 62.7 kg Additional comments: Middle-aged -[place] female sitting up in bed Lungs: Positive use of accessory muscles decreased breath sounds bilaterally no crackles heard Cardiac: S1-S2 regular no peripheral edema no cyanosis no calf tenderness Abdomen: Soft, no focal tenderness normal bowel sounds Chin: Warm and dry Results Laboratory Results: 06/30/17 04:10 07/06/17 05:01 07/06/17 05:01 Sodium 140.0 Potassium 4.2 Chloride 94 L Carbon Dioxide 41 H* Anion Gap 5 BUN 33 H Creatinine 0.60 Est GFR ( Amer) > 60 Est GFR (Non-Af Amer) > 60 Glucose 195 H Calcium 8.9 06/29/17 06/29/17 06/29/17 03:40 03:40 09:05 Creatine Kinase 56 49 CK-MB (CK-2) 1.37 Troponin I 0.029 NT-Pro-B Natriuret Pep 06/29/17 06/29/17 06/29/17 09:05 15:45 15:45 Creatine Kinase 35 CK-MB (CK-2) 1.48 1.27 Troponin I 0.020 0.016 NT-Pro-B Natriuret Pep 06/30/17 04:10 Creatine Kinase CK-MB (CK-2) Troponin I NT-Pro-B Natriuret Pep 245 Impressions: Chest X-Ray 07/06/17 00:00 IMPRESSION: Oblique linear density best seen in the lateral projection as noted above which could represent atelectatic changes or represent fluid within the major fissure. Remaining lung lópez are clear. Again there is evidence for obstructive lung disease. Other findings as noted above Assessment & Plan - Diagnosis (1) Acute on chronic respiratory failure with hypoxia and hypercapnia Is this a current diagnosis for this admission?: Yes (2) COPD exacerbation Is this a current diagnosis for this admission?: Yes (3) Diastolic CHF due to valvular disease Is this a current diagnosis for this admission?: Yes (5) Hypertension Is this a current diagnosis for this admission?: Yes (6) Anxiety Is this a current diagnosis for this admission?: Yes (7) Atrial flutter Qualifiers: Atrial flutter type: typical Qualified Code(s): I48.3 - Typical atrial flutter (8) Diabetes Qualifiers: Diabetes mellitus type: type 2 Is this a current diagnosis for this admission?: Yes - Time Time Spent with patient: 25-34 minutes - Plan Summary Plan Summary: Continue metoprolol Cardizem and Eliquis Systolic CHF exacerbation was treated with diuresis. Repeat chest x-ray today no infiltrate or edema or effusion Steroids have been switched to p.o. 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
[2017-07-06] MEDS: INSULIN GLARGINE,HUM.REC.ANLOG 300 UNIT/3 ML INSULN.PEN SUBCUT SCH (21:23)
[2017-07-06] MEDS: TEMAZEPAM 7.5 MG CAPSULE PO PRN (21:24)
--- NOTE | 2017-07-06 21:26 | Palliative Consultation Report ---
Consultation From:: AISHA SIMMONS Consult Reason: resp failure - HPI HPI: Palliative Care Consult Visit 07/06/17 11:30- 11:50 AM Appreciate consult request. Patient is admitted for COPD exacerbation and CHF. She has comorbid conditions including At flutter on antiicoagulation, anemia, Pulmoary HTN, and DM. She states she is feeling better than when she was admitted. But she is still very short of breath. She is on oxygen per [place] and states the Bipap/Cpap makes her very claustrophobic and she gets short of breath due to that feeling. Mrs. Peterson has been raising her son's five year old daughter for many years, while he has been away. Now he is home and she said he is taking care of her, but she is still worried about her. However, she also is aware that she has to get better to be able to get home and be of use to this child. She is aware of how ill she is and has been but says she is sure she will get better. She is hoping that her doctors will fiut toward the lateral area of her upper left abdomen.nd some medications that will help her prevent coming into the hospital so often. Patient denies pain except in her left upper abdomen. She reports having good BM today. Pain is not in her flank area but in the lateral aspect of her left upper abdomen. We discussed the possibility that she may have swallowed some air while wearing BIpap which may be making this pain. Area is not tender to palpation but is a bit distended Onset: Just prior to arrival Onset/Duration: Gradual Quality of Pain: Fullness Associated Symptoms: Weakness Exacerbated by: Coughing Past Medical History(Consults) - General Information Source: Patient, [facility] Records Home Medications: Albuterol Sulfate [Ventolin HFA MDI 18 GM] 1 puff IH Q6HP PRN 06/29/17 Apixaban [Eliquis] 5 mg PO Q12 06/29/17 Budesonide/Formoterol Fumarate [Symbicort 160-4.5 Mcg Inhaler] 1 puff IH Q12 06/04 Digoxin [Lanoxin 0.125 mg Tablet] 0.125 mg PO DAILY 06/29/17 Diltiazem HCl [Cartia Xt] 180 mg PO DAILY 06/29/17 Ferrous Sulfate [Feosol 325 mg Tablet] 325 mg PO DAILY 06/29/17 Fluticasone Propionate [Flonase Nasal [place] 50 Mcg/[place] 16 gm] 1 spray NASL DAILYP PRN 06/29/17 Folic Acid [Folvite 1 mg Tablet] 1 mg PO DAILY 06/29/17 Furosemide [Lasix 40 mg Tablet] 40 mg PO DAILY 06/29/17 Glipizide [Glipizide ER] 2.5 mg PO DAILY 06/29/17 Metoprolol Succinate [Toprol Xl 50 mg Tab.sr] 50 mg PO DAILY 06/29/17 Montelukast Sodium [Singulair 10 mg Tablet] 10 mg PO QPM 06/29/17 Potassium Chloride [K-Tab ER] 20 meq PO DAILY 06/29/17 Sertraline HCl [Zoloft] 25 mg PO DAILY 06/29/17 Tiotropium [place] [Spiriva Respimat] 2 puff IH DAILY 06/29/17 Zolpidem Tartrate [Ambien 5 mg Tablet] 5 mg PO HSP PRN 06/29/17 Allergies/Adverse Reactions: erythromycin base [Erythromycin Base] Allergy (Mild, Verified 06/29/17 07:01) - Social History Lives with: Family Family History: CAD, COPD, Hypertension Parental Family History Reviewed: No Children Family History Reviewed: No Sibling(s) Family History Reviewed.: No Smoking Status: Current Every Day Smoker Frequency of Alcohol Use: None Drugs: None Hx Prescription Drug Abuse: No - Past Medical History Cardiac Medical History: Reports: Hx Atrial Fibrillation, Hx Congestive Heart Failure, Hx Heart Attack, Hx Hypertension Pulmonary Medical History: Reports: Hx COPD, Hx Pneumonia EENT Medical History: Denies: Ears, Nose Neurological Medical History: Denies: Hx Migraine Endocrine Medical History: Reports: 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 Renal/ Medical History: Denies: Hx Peritoneal Dialysis Malignancy Medical History: Reports: None GI Medical History: Denies: Hx Cirrhosis, Hx Crohn's Disease, Hx Ulcerative Colitis Musculoskeltal Medical History: Reports Hx Arthritis, Denies Hx Gout Skin Medical History: Denies Hx Psoriasis Psychiatric Medical History: Denies: Hx Depression Traumatic Medical History: Reports: Hx Traumatic Brain Injury Hematology: Reports: Anemia Denies: Sickle Cell Disease - Surgical History Past Surgical History: Reports: Hx Cardiac Catheterization, Hx Section - Immunizations Immunizations up to date: Yes Review of systems Cardiovascular: Palpitations Respiratory: Short of breath, Wheezing Hematologic/Lymphatic: Anemia Neurological/Psychological: Anxiety Ojective:Exam Vital Signs: Temp Pulse Resp BP Pulse Ox 98.7 F 67 20 100/45 L 98 07/06/17 19:19 07/06/17 19:19 07/06/17 19:19 07/06/17 19:19 07/06/17 19:19 Pulse Oximeter Continuous Start: 06/29/17 00: 33 Freq: RTQ4 Status: Hold Document 07/06/17 08:00 [facility] (Rec: 07/06/17 10:57 [facility] [email or web address]) Pulse Oximetry Assessment Oxygen Saturation (92-100) 100 Oxygen Flow Rate (L/min) 2 Oxygen Delivery Method Nasal Cannula Equipment Usage Equipment Standby Continuous SpO2 Machine # [id number] Intake & Output 07/05/17 07/06/17 07/07/17 06:59 06:59 06:59 Intake Total 843 485 977 Output Total 800 Balance 43 485 977 Weight 64.3 kg 62.7 kg - General General Appearance: Anxious In distress: Moderate Note:: Alert, oriented. Short of breath using N/C oxygen, refuses Bipap due to discomfort with mask and claustrophobia. She is complaining of pain in left upper , lateral abdomen - HEENT Head: Normocephalic Eyes: Normal, Pale conjunctiva Pupils: PERRLA Mucous membrane: Normal - Respiratory Respiratory Status: Labored Chest Status: Nontender Breath sounds: Rhonchi, Wheezing - Cardiovascular Rhythm: Irregularly irregular Pulses: Normal: Brachial - Abdominal Distension: Distended - Neurological Orientation: AAOx4 Speech: Normal Cranial nerves: Normal - Psychological Associated symptoms: Normal affect, Anxious Objective-Diagnostic Laboratory: 06/30/17 04:10 07/06/17 05:01 07/06/17 05:01 Sodium 140.0 Potassium 4.2 Chloride 94 L Carbon Dioxide 41 H* Anion Gap 5 BUN 33 H Creatinine 0.60 Est GFR ( Amer) > 60 Est GFR (Non-Af Amer) > 60 Glucose 195 H Calcium 8.9 06/29/17 06/29/17 06/29/17 03:40 03:40 09:05 Creatine Kinase 56 49 CK-MB (CK-2) 1.37 Troponin I 0.029 NT-Pro-B Natriuret Pep 06/29/17 06/29/17 06/29/17 09:05 15:45 15:45 Creatine Kinase 35 CK-MB (CK-2) 1.48 1.27 Troponin I 0.020 0.016 NT-Pro-B Natriuret Pep 06/30/17 04:10 Creatine Kinase CK-MB (CK-2) Troponin I NT-Pro-B Natriuret Pep 245 Plan and Recommendation Plan and Recommendation: Encouraged patient to discuss the pain in her left abdomen, and to move around as she can to change position of any gas or stool in her colon. Encouraged patient to ask to have her Bipap mask adjusted for more comfortable fit. DId not discuss code status/ advance directives with patient because she was having such anxiety about being able to go home to her granddaughter and getitng better with medication changes. Discussed making home PC visits to try to help her stay out of the hospital and to help her with care options and dealing with her chronic illness. Will follow with patient to help her consider her options for care and code status. She is anxious about her home situation and wants to go home soon, but she is aware that her medications may need to be changed to prevent reoccurance of her COPD/CHF problems. Thank you for allowing me to participate in care. - Time Spent with Patient Time spent with patient: 15 to 30 Minutes Time: 30 min with visit, chart review and consultation with nurse.
[2017-07-07 05:32] LABS: BLOOD UREA NITROGEN 34 mg/dL (7-20); CALCIUM 9.3 mg/dL (8.4-10.2); CHLORIDE 98 mmol/L (98-107); GLUCOSE 178 mg/dL (75-110); POTASSIUM 4.4 mmol/L (3.6-5.0); SODIUM 142.1 mmol/L (137-145)
[2017-07-07 05:48] LABS: ANION GAP 1 (5-19); CARBON DIOXIDE 43 mmol/L (22-30)
[2017-07-07] MEDS: GLIPIZIDE 5 MG TABLET PO SCH ×2 (07:40→17:00)
[2017-07-07] MEDS: ACETAMINOPHEN 325 MG TABLET PO PRN (07:40)
[2017-07-07] MEDS: INSULIN LISPRO 100 UNIT/ML 3 ML VIAL SUBCUT PRN ×4 (07:40→22:41)
[2017-07-07] MEDS: LEVALBUTEROL HCL NEB 0.63 MG/3 ML AMPUL NEB SCH ×3 (08:08→20:00)
[2017-07-07] MEDS: BUDESONIDE NEB 0.5 MG/2 ML AMPUL NEB SCH ×2 (08:08→20:00)
[2017-07-07] MEDS: POTASSIUM CHLORIDE 10 MEQ TABLET.SA PO SCH (10:38)
[2017-07-07] MEDS: FERROUS SULFATE 325 MG TABLET PO SCH (10:39)
[2017-07-07] MEDS: MULTIVITAMIN TABLET PO SCH (10:39)
[2017-07-07] MEDS: APIXABAN 5 MG TABLET PO SCH ×2 (10:39→17:08)
[2017-07-07] MEDS: DILTIAZEM HCL 180 MG CAPSULE.CR PO SCH (10:39)
[2017-07-07] MEDS: METOPROLOL SUCCINATE 50 MG TAB.SR.24H PO SCH (10:39)
[2017-07-07] MEDS: FUROSEMIDE 40 MG TABLET PO SCH (10:39)
[2017-07-07] MEDS: ASPIRIN 81 MG TABLET, ENT COATED PO SCH (10:39)
[2017-07-07] MEDS: PREDNISONE 20 MG TABLET PO SCH ×2 (10:39→17:09)
[2017-07-07] MEDS: FOLIC ACID 1 MG TABLET PO SCH (10:39)
[2017-07-07] MEDS: DIGOXIN 0.125 MG TABLET PO SCH (10:39)
[2017-07-07] MEDS: NITROGLYCERIN 2.5 MG (0.1 MG/HR) PATCH.TD24 TD SCH (10:44)
[2017-07-07] MEDS: GUAIFENESIN 600 MG TABLET.SA PO SCH ×2 (10:44→22:41)
[2017-07-07] MEDS: INSULIN LISPRO 100 UNIT/ML 3 ML VIAL SUBCUT SCH ×2 (12:06→17:00)
--- NOTE | 2017-07-07 18:17 | PDOC PROGRESS REPORT ---
Subjective Progress Note for:: 07/07/17 Subjective:: 56-year-old female with past medical history of Atrial flutter on anticoagulation Pulmonary hypertension End-stage COPD on home oxygen She presented to the hospital on June 29 with shortness of breath and leg swelling with cough. She had recently been on a course of antibiotics and steroids at that completed a few days prior to admission. She was admitted to the hospital for acute on chronic hypoxic respiratory failure due to a combination of COPD exacerbation and diastolic CHF exacerbation. Last echocardiogram was in November 2016. Left ventricular ejection fraction was normal. Normal left ventricle wall thickness. Mild to moderate mitral regurgitation moderately dilated left atrium. She was treated with IV Lasix bronchodilators and IV steroids. She continues to feel short of breath and is using her accessory muscles to breathe. Dr. Talbot is her network engineer administrator. She is not willing to talk about prognosis or plan of care but only wants to know how she can get better. Unfortunately, she has end-stage COPD with very poor prognosis, and would benefit from palliative care and hospice services. Reason For Visit: ACUTE HYPOXEMIC RESPIRATORY FAILURE, COPD Physical Exam Vital Signs: Temp Pulse Resp BP Pulse Ox 98.5 F 75 23 H 105/64 96 07/07/17 15:54 07/07/17 15:54 07/07/17 15:54 07/07/17 15:54 07/07/17 15:54 Pulse Oximeter Continuous Start: 06/29/17 00: 33 Freq: RTQ4 Status: Hold Document 07/06/17 08:00 [facility] (Rec: 07/06/17 10:57 [facility] [email or web address]) Pulse Oximetry Assessment Oxygen Saturation (92-100) 100 Oxygen Flow Rate (L/min) 2 Oxygen Delivery Method Nasal Cannula Equipment Usage Equipment Standby Continuous SpO2 Machine # [id number] Intake & Output 07/06/17 07/07/17 07/08/17 06:59 06:59 06:59 Intake Total 470 3892 355 Output Total 600 Balance 403 2544 -038 Weight 62.7 kg 64.1 kg Results Laboratory Results: 06/30/17 04:10 07/07/17 04:37 07/07/17 04:37 Sodium 142.1 Potassium 4.4 Chloride 98 Carbon Dioxide 43 H* Anion Gap 1 L BUN 34 H Creatinine 0.65 Est GFR ( Amer) > 60 Est GFR (Non-Af Amer) > 60 Glucose 178 H Calcium 9.3 06/29/17 06/29/17 06/29/17 03:40 03:40 09:05 Creatine Kinase 56 49 CK-MB (CK-2) 1.37 Troponin I 0.029 NT-Pro-B Natriuret Pep 06/29/17 06/29/17 06/29/17 09:05 15:45 15:45 Creatine Kinase 35 CK-MB (CK-2) 1.48 1.27 Troponin I 0.020 0.016 NT-Pro-B Natriuret Pep 06/30/17 04:10 Creatine Kinase CK-MB (CK-2) Troponin I NT-Pro-B Natriuret Pep 245 Impressions: Chest X-Ray 07/06/17 00:00 IMPRESSION: Oblique linear density best seen in the lateral projection as noted above which could represent atelectatic changes or represent fluid within the major fissure. Remaining lung lópez are clear. Again there is evidence for obstructive lung disease. Other findings as noted above Assessment & Plan - Diagnosis (1) Acute on chronic respiratory failure with hypoxia and hypercapnia Is this a current diagnosis for this admission?: Yes (2) COPD exacerbation Is this a current diagnosis for this admission?: Yes (3) Diastolic CHF due to valvular disease Is this a current diagnosis for this admission?: Yes (5) Hypertension Is this a current diagnosis for this admission?: Yes (6) Anxiety Is this a current diagnosis for this admission?: Yes (7) Atrial flutter Qualifiers: Atrial flutter type: typical Qualified Code(s): I48.3 - Typical atrial flutter (8) Diabetes Qualifiers: Diabetes mellitus type: type 2 Is this a current diagnosis for this admission?: Yes - Time Time Spent with patient: 15-24 minutes Disposition: Continue metoprolol Cardizem and Eliquis Systolic CHF exacerbation was treated with diuresis. Repeat chest x-ray today no infiltrate or edema or effusion Steroids have been switched to p.o. continue bronchodilators and supplemental oxygen.
[2017-07-07] MEDS: TEMAZEPAM 7.5 MG CAPSULE PO PRN (22:40)
[2017-07-07] MEDS: INSULIN GLARGINE,HUM.REC.ANLOG 300 UNIT/3 ML INSULN.PEN SUBCUT SCH (22:41)
[2017-07-08] MEDS: ACETAMINOPHEN 325 MG TABLET PO PRN ×2 (05:36→21:08)
[2017-07-08] MEDS: LEVALBUTEROL HCL NEB 0.63 MG/3 ML AMPUL NEB SCH ×3 (07:28→19:18)
[2017-07-08] MEDS: BUDESONIDE NEB 0.5 MG/2 ML AMPUL NEB SCH ×2 (07:28→19:18)
[2017-07-08] MEDS: INSULIN LISPRO 100 UNIT/ML 3 ML VIAL SUBCUT SCH ×3 (08:23→16:25)
[2017-07-08] MEDS: INSULIN LISPRO 100 UNIT/ML 3 ML VIAL SUBCUT PRN ×4 (08:23→21:52)
[2017-07-08] MEDS: GLIPIZIDE 5 MG TABLET PO SCH ×2 (08:23→16:24)
[2017-07-08] MEDS: DILTIAZEM HCL 180 MG CAPSULE.CR PO SCH (10:20)
[2017-07-08] MEDS: ASPIRIN 81 MG TABLET, ENT COATED PO SCH (10:20)
[2017-07-08] MEDS: POTASSIUM CHLORIDE 10 MEQ TABLET.SA PO SCH (10:20)
[2017-07-08] MEDS: MULTIVITAMIN TABLET PO SCH (10:20)
[2017-07-08] MEDS: PREDNISONE 20 MG TABLET PO SCH ×2 (10:21→17:23)
[2017-07-08] MEDS: APIXABAN 5 MG TABLET PO SCH ×2 (10:21→17:24)
[2017-07-08] MEDS: FUROSEMIDE 40 MG TABLET PO SCH (10:21)
[2017-07-08] MEDS: FERROUS SULFATE 325 MG TABLET PO SCH (10:21)
[2017-07-08] MEDS: DIGOXIN 0.125 MG TABLET PO SCH (10:21)
[2017-07-08] MEDS: METOPROLOL SUCCINATE 50 MG TAB.SR.24H PO SCH (10:21)
[2017-07-08] MEDS: FOLIC ACID 1 MG TABLET PO SCH (10:21)
[2017-07-08] MEDS: GUAIFENESIN SYRP 200 MG/10 ML UDC PO SCH ×3 (13:20→21:04)
--- NOTE | 2017-07-08 14:04 | PDOC PROGRESS REPORT ---
Subjective Progress Note for:: 07/08/17 Subjective:: The patient is resting in her bed. She states that she is feeling about back to her baseline. She still gets winded when she gets up and tries to walk around. She was seen by palliative care yesterday. The patient does understand that she has bad lungs and liver situation is likely not going to get better however she states that she wants to go on living in treating her illness for as long as possible. I did discuss CODE STATUS with her today. We discussed the severity of her lung disease and that further intubations may result in her not being able to be weaned off of the ventilator. She states that her family can deal with this when the time comes and that she certainly would want to be intubated if she felt like it would help keep her alive going forward. She also would like to have chest compressions in the event that her heart would stop. She does understand that she may get to a point down the road that she may want to change this. She is interested in being followed by the palliative care service as an outpatient to help keep her out of the hospital as much as possible. She also is concerned that she is receiving insulin. She states that she did not have any issues with her blood sugar prior to this hospitalization. Her blood sugars have been markedly uncontrolled and she currently is requiring Lantus with mealtime coverage as well as sliding scale. I have told her that at least for the short-term she will likely need to go home with insulin and the nursing staff is going to work on education today. Overall she denies fever chills. She has continued shortness of breath but feels like she is back to her baseline. Her cough is about the same. No nausea , vomiting or diarrhea. She is tolerating her diet. No dysuria, frequency or hematuria. Reason For Visit: ACUTE HYPOXEMIC RESPIRATORY FAILURE, COPD Physical Exam Vital Signs: Temp Pulse Resp BP Pulse Ox 97.4 F 70 19 115/66 99 07/08/17 13:06 07/08/17 13:06 07/08/17 13:06 07/08/17 13:06 07/08/17 13:06 Pulse Oximeter Continuous Start: 06/29/17 00: 33 Freq: RTQ4 Status: Hold Document 07/06/17 08:00 [facility] (Rec: 07/06/17 10:57 [facility] [email or web address]) Pulse Oximetry Assessment Oxygen Saturation (92-100) 100 Oxygen Flow Rate (L/min) 2 Oxygen Delivery Method Nasal Cannula Equipment Usage Equipment Standby Continuous SpO2 Machine # [id number] Intake & Output 07/07/17 07/08/17 07/09/17 06:59 06:59 06:59 Intake Total 1674 1429 300 Output Total 750 Balance 1674 679 300 Weight 64.1 kg 65 kg General appearance: PRESENT: no acute distress, thin, other - Chronically ill- appearing with conversational dyspnea Head exam: PRESENT: atraumatic, normocephalic Eye exam: PRESENT: conjunctiva pink, EOMI, PERRLA. ABSENT: scleral icterus Mouth exam: PRESENT: moist, tongue midline Respiratory exam: PRESENT: decreased breath sounds, other - She has some end expiratory wheezing and she is significantly diminished bilaterally Cardiovascular exam: PRESENT: RRR. ABSENT: diastolic murmur, rubs, systolic murmur GI/Abdominal exam: PRESENT: normal bowel sounds, soft. ABSENT: distended, guarding, mass, organolmegaly, rebound, tenderness Rectal exam: PRESENT: deferred Extremities exam: PRESENT: full ROM. ABSENT: calf tenderness, clubbing, pedal edema Musculoskeletal exam: PRESENT: ambulatory Neurological exam: PRESENT: alert, awake, oriented to person, oriented to place , oriented to time, oriented to situation, CN II-XII grossly intact. ABSENT: motor sensory deficit Skin exam: PRESENT: dry, intact, warm. ABSENT: cyanosis, rash Results Laboratory Results: 06/30/17 04:10 07/07/17 04:37 06/29/17 06/29/17 06/29/17 03:40 03:40 09:05 Creatine Kinase 56 49 CK-MB (CK-2) 1.37 Troponin I 0.029 NT-Pro-B Natriuret Pep 06/29/17 06/29/17 06/29/17 09:05 15:45 15:45 Creatine Kinase 35 CK-MB (CK-2) 1.48 1.27 Troponin I 0.020 0.016 NT-Pro-B Natriuret Pep 06/30/17 04:10 Creatine Kinase CK-MB (CK-2) Troponin I NT-Pro-B Natriuret Pep 245 Impressions: Chest X-Ray 07/06/17 00:00 IMPRESSION: Oblique linear density best seen in the lateral projection as noted above which could represent atelectatic changes or represent fluid within the major fissure. Remaining lung lópez are clear. Again there is evidence for obstructive lung disease. Other findings as noted above Assessment & Plan - Diagnosis (1) Acute and chronic respiratory failure with hypoxia Is this a current diagnosis for this admission?: Yes Plan: The patient is currently at her baseline oxygen requirements. Her acute respiratory failure has resolved. This was secondary to a COPD exacerbation as well as congestive heart failure exacerbation. (2) COPD exacerbation Is this a current diagnosis for this admission?: Yes Plan: Currently on prednisone 20 mg twice daily. This will likely need to be tapered as an outpatient. (3) Acute on chronic diastolic (congestive) heart failure Is this a current diagnosis for this admission?: Yes Plan: Resolved. Continue current regimen of 40 mg of p.o. Lasix daily (4) Atrial fibrillation and flutter Is this a current diagnosis for this admission?: Yes Plan: Stable. Continue Cardizem and metoprolol. (5) Diabetes Qualifiers: Diabetes mellitus type: type 2 Is this a current diagnosis for this admission?: Yes Plan: Likely due to steroids. She states she does not carry a diagnosis of diabetes. Her blood sugars have been markedly uncontrolled. I increased her Lantus to 18 units daily with 6 units of NovoLog 3 times daily before meals with sliding scale coverage. The nursing staff is going to work on teaching the patient how to administer insulin at home. She can work with her outpatient physicians on how to wean off of this if she ever gets weaned off of steroids which I feel is doubtful. (6) Hypertension Qualifiers: Hypertension type: essential hypertension Qualified Code(s): I10 - Essential (primary) hypertension Is this a current diagnosis for this admission?: Yes Plan: Continue Cardizem and metoprolol. Stable (7) Anxiety Is this a current diagnosis for this admission?: Yes Plan: Stable (8) Full code status Is this a current diagnosis for this admission?: Yes Plan: I did discuss at length with the patient today. At this point she does not wish to change her status. She states that she would like to be intubated and that her family can deal with the problem if she cannot be weaned off of the ventilator. She wants to live and she would like to be resuscitated by all means necessary. She would like chest compressions, pressors in the ICU as well as intubation. - Time Time Spent with patient: 25-34 minutes
--- NOTE | 2017-07-08 18:36 | PDOC PROGRESS REPORT ---
Subjective Progress Note for:: 07/06/17 Subjective:: i m still weak Reason For Visit: ACUTE HYPOXEMIC RESPIRATORY FAILURE, COPD Physical Exam Vital Signs: Temp Pulse Resp BP Pulse Ox 97.8 F 79 20 120/67 99 07/06/17 12:14 07/06/17 12:14 07/06/17 12:14 07/06/17 12:14 07/06/17 12:14 Pulse Oximeter Continuous Start: 06/29/17 00: 33 Freq: RTQ4 Status: Hold Document 07/06/17 08:00 [facility] (Rec: 07/06/17 10:57 [facility] [email or web address]) Pulse Oximetry Assessment Oxygen Saturation (92-100) 100 Oxygen Flow Rate (L/min) 2 Oxygen Delivery Method Nasal Cannula Equipment Usage Equipment Standby Continuous SpO2 Machine # [id number] Intake & Output 07/05/17 07/06/17 07/07/17 06:59 06:59 06:59 Intake Total 843 485 555 Output Total 800 Balance 43 485 555 Weight 64.3 kg 62.7 kg General appearance: PRESENT: no acute distress, cooperative, disheveled, thin. ABSENT: mild distress, morbidly obese, obese, severe distress Head exam: PRESENT: atraumatic, normocephalic Eye exam: PRESENT: conjunctiva pale, EOMI. ABSENT: conjunctival injection, conjunctiva pink, nystagmus, periorbital swelling, scleral icterus Mouth exam: PRESENT: dry mucosa, neck supple, tongue midline. ABSENT: laceration, moist Teeth exam: PRESENT: poor dentation Neck exam: ABSENT: carotid bruit, JVD, lymphadenopathy, thyromegaly, tracheal deviation, tracheostomy Respiratory exam: PRESENT: decreased breath sounds, prolonged expiratory phas, rhonchi, symmetrical, unlabored, wheezes. ABSENT: accessory muscle use, chest wall tenderness, clear to auscultation martínez, crackles, rales, retraction, stridor , tachypnea Cardiovascular exam: PRESENT: irregular rhythm Pulses: PRESENT: normal radial pulses GI/Abdominal exam: PRESENT: diminished bowel sounds, soft Extremities exam: PRESENT: full ROM. ABSENT: calf tenderness, clubbing, joint swelling Musculoskeletal exam: PRESENT: full ROM. ABSENT: deformity, dislocation Neurological exam: PRESENT: alert, awake Psychiatric exam: PRESENT: normal mood Skin exam: PRESENT: dry, warm Results Laboratory Results: 06/30/17 04:10 07/06/17 05:01 07/06/17 05:01 Sodium 140.0 Potassium 4.2 Chloride 94 L Carbon Dioxide 41 H* Anion Gap 5 BUN 33 H Creatinine 0.60 Est GFR ( Amer) > 60 Est GFR (Non-Af Amer) > 60 Glucose 195 H Calcium 8.9 06/29/17 06/29/17 06/29/17 03:40 03:40 09:05 Creatine Kinase 56 49 CK-MB (CK-2) 1.37 Troponin I 0.029 NT-Pro-B Natriuret Pep 06/29/17 06/29/17 06/29/17 09:05 15:45 15:45 Creatine Kinase 35 CK-MB (CK-2) 1.48 1.27 Troponin I 0.020 0.016 NT-Pro-B Natriuret Pep 06/30/17 04:10 Creatine Kinase CK-MB (CK-2) Troponin I NT-Pro-B Natriuret Pep 245 Impressions: Chest X-Ray 07/06/17 00:00 IMPRESSION: Oblique linear density best seen in the lateral projection as noted above which could represent atelectatic changes or represent fluid within the major fissure. Remaining lung lópez are clear. Again there is evidence for obstructive lung disease. Other findings as noted above Assessment & Plan - Diagnosis (1) Acute and chronic respiratory failure with hypoxia Is this a current diagnosis for this admission?: Yes Plan: improving (2) COPD exacerbation Is this a current diagnosis for this admission?: Yes Plan: Generic Name Dose Route Start Last Admin Trade Name Freq PRN Reason Stop Dose Admin Guaifenesin 600 mg 07/02/17 22:00 Mucinex Sr 600 Mg Tablet.Sa PO 07/29/17 09:59 Q12 ANA Zolpidem Tartrate 2.5 mg 06/30/17 22:00 07/01/17 21:42 Ambien 5 Mg Tablet PO 07/07/17 21:59 2.5 mg QHS ANA Budesonide 0.5 mg 06/29/17 20:00 07/02/17 08:33 Pulmicort Neb 0.5 Mg/2 Ml Ampul NEB 07/29/17 19:59 0.5 mg RTQ12 ANA Methylprednisolone Sodium Succinate 40 mg 07/01/17 22:00 07/02/17 09:56 Solu-Medrol Inj/Pf 40 Mg/1 Ml Sdv IV 07/31/17 21:59 40 mg Q12 ANA Albuterol/Ipratropium 3 ml 06/29/17 02:00 07/02/17 08:33 Duoneb 3 Ml Ampul NEB 07/29/17 01:59 3 ml RTQ6 ANA Levalbuterol HCl 1.25 mg 07/02/17 08:30 Xopenex Neb 1.25 Mg/3 Ml Ampul NEB 07/29/17 00:31 RTQ2HP PRN WHEEZING/DYSPNEA Methylprednisolone Sodium Succinate 60 mg 06/07/17 22:00 06/12/17 07:11 Solu-Medrol Inj/Pf 125 Mg/2 Ml Sdv IV 07/07/17 21:59 60 mg Q8 ANA Levalbuterol HCl 1.25 mg 06/09/17 12:00 06/12/17 08:06 Xopenex Neb 1.25 Mg/3 Ml Ampul NEB 07/09/17 11:59 1.25 mg RTQ4 ANA Fluticasone Propionate 2 spray 06/08/17 10:00 06/11/17 09:44 Flonase Nasal [place] 50 Mcg/[place] 16 Gm NASL 07/08/17 09:59 2 spray DAILY ANA (3) Anemia Qualifiers: Anemia type: unspecified type Qualified Code(s): D64.9 - Anemia, unspecified Is this a current diagnosis for this admission?: Yes Plan: Chronic disease (4) Anxiety Is this a current diagnosis for this admission?: Yes Plan: stable (5) Atrial fibrillation with RVR Is this a current diagnosis for this admission?: Yes Plan: Ventricular response appears to be well controlled
[2017-07-08] MEDS ORDERED: INSULIN GLARGINE,HUM.REC.ANLOG 300 UNIT/3 ML INSULN.PEN SUBCUT SCH (22:00)
[2017-07-09] MEDS: GUAIFENESIN SYRP 200 MG/10 ML UDC PO SCH ×3 (01:45→09:41)
[2017-07-09 05:47] LABS: BLOOD UREA NITROGEN 32 mg/dL (7-20); CALCIUM 9.7 mg/dL (8.4-10.2); CHLORIDE 95 mmol/L (98-107); GLUCOSE 208 mg/dL (75-110); MAGNESIUM 2.2 mg/dL (1.6-2.3); POTASSIUM 5.1 mmol/L (3.6-5.0)
[2017-07-09 05:49] LABS: HEMATOCRIT 33.3 % (36.0-47.0); HEMOGLOBIN 10.5 g/dL (12.0-15.5); MEAN CORPUSCULAR HEMOGLOBIN 25.1 pg (27.0-33.4); MEAN CORPUSCULAR HGB CONC 31.4 g/dL (32.0-36.0); MEAN CORPUSCULAR VOLUME 80 fl (80-97); PLATELET COUNT 397 10^3/uL (150-450); RED BLOOD COUNT 4.17 10^6/uL (3.72-5.28); RED CELL DISTRIBUTION WIDTH 20.2 % (11.5-14.0); WHITE BLOOD COUNT 14.1 10^3/uL (4.0-10.5)
[2017-07-09 06:24] LABS: ANION GAP 5 (5-19); SODIUM 138.8 mmol/L (137-145)
[2017-07-09 06:27] LABS: CARBON DIOXIDE 39 mmol/L (22-30)
[2017-07-09 07:23] LABS: ABSOLUTE LYMPHOCYTES# (MANUAL) 1.4 10^3/uL (0.5-4.7); ABSOLUTE MONOCYTES # (MANUAL) 0.7 10^3/uL (0.1-1.4); ANISOCYTOSIS 2+; BAND NEUTROPHILS % (MANUAL) 6 % (3-5); BASOPHILS % (MANUAL) 0 % (0-2); EOSINOPHILS % (MANUAL) 0 % (0-6); HYPOCHROMASIA 1+; LYMPHOCYTES % (MANUAL) 10 % (13-45); METAMYELOCYTES % (MANUAL) 2 % (0); MONOCYTES % (MANUAL) 5 % (3-13); PLATELET CLUMPS PRESENT; PLATELET LARGE PRESENT; POLYCHROMASIA SLIGHT; SEGMENTED NEUTROPHILS % (MAN) 77 % (42-78); TARGET CELLS SLIGHT; TOTAL CELLS COUNTED 100
[2017-07-09 07:24] LABS: TOXIC GRANULATION SLIGHT
[2017-07-09] MEDS: BUDESONIDE NEB 0.5 MG/2 ML AMPUL NEB SCH (07:53)
[2017-07-09] MEDS: LEVALBUTEROL HCL NEB 0.63 MG/3 ML AMPUL NEB SCH ×2 (07:53→13:34)
[2017-07-09] MEDS: ACETAMINOPHEN 325 MG TABLET PO PRN (08:23)
[2017-07-09] MEDS: INSULIN LISPRO 100 UNIT/ML 3 ML VIAL SUBCUT SCH ×2 (08:23→14:13)
[2017-07-09] MEDS: GLIPIZIDE 5 MG TABLET PO SCH (08:23)
[2017-07-09] MEDS: INSULIN LISPRO 100 UNIT/ML 3 ML VIAL SUBCUT PRN (08:23)
[2017-07-09] MEDS: FERROUS SULFATE 325 MG TABLET PO SCH (09:41)
[2017-07-09] MEDS: ASPIRIN 81 MG TABLET, ENT COATED PO SCH (09:41)
[2017-07-09] MEDS: APIXABAN 5 MG TABLET PO SCH (09:42)
[2017-07-09] MEDS: PREDNISONE 20 MG TABLET PO SCH (09:42)
[2017-07-09] MEDS: FUROSEMIDE 40 MG TABLET PO SCH (09:42)
[2017-07-09] MEDS: DIGOXIN 0.125 MG TABLET PO SCH (09:43)
[2017-07-09] MEDS: METOPROLOL SUCCINATE 50 MG TAB.SR.24H PO SCH (09:43)
[2017-07-09] MEDS: FOLIC ACID 1 MG TABLET PO SCH (09:43)
[2017-07-09] MEDS: DILTIAZEM HCL 180 MG CAPSULE.CR PO SCH (09:43)
[2017-07-09] MEDS: MULTIVITAMIN TABLET PO SCH (09:44)
[2017-07-09] MEDS: POTASSIUM CHLORIDE 10 MEQ TABLET.SA PO SCH (09:47)
--- NOTE | 2017-07-09 15:46 | Progress Note ---
Provider Note Provider Note: Palliative Care Note Telephone call received from patient regarding discharge. She is under impression that she cannot be discharged until palliative care is set up. I spoke with her nurse and explained that I did see this patient on 07/06/17. I will be happy to follow her at home when we get a referral from one of her providers outside the hospital. I have asked our liason to call Dr. Rell Moreno office for referral. Patient agrees for home PC visits and I will contact her as soon as we get referral. Guidelines mandate home PC referral has to come from PCP or outside providers and cannot be from hospitalists due to follow up issues. Appreciate notes from Jessica Cruz and her efforts to address Code Status. WIll follow with this at home, but it may be some time before she changes her status. Thank you for PC consult request and hopefully we can help her at home.
--- NOTE | 2017-07-09 15:49 | PDOC PROGRESS REPORT ---
Subjective Progress Note for:: 07/09/17 Subjective:: i m a little better Reason For Visit: ACUTE HYPOXEMIC RESPIRATORY FAILURE, COPD Physical Exam Vital Signs: Temp Pulse Resp BP Pulse Ox 98.1 F 76 20 99/79 L 95 07/09/17 11:57 07/09/17 13:34 07/09/17 13:34 07/09/17 11:57 07/09/17 13:34 Pulse Oximeter Continuous Start: 06/29/17 00: 33 Freq: RTQ4 Status: Hold Document 07/06/17 08:00 [facility] (Rec: 07/06/17 10:57 [facility] [email or web address]) Pulse Oximetry Assessment Oxygen Saturation (92-100) 100 Oxygen Flow Rate (L/min) 2 Oxygen Delivery Method Nasal Cannula Equipment Usage Equipment Standby Continuous SpO2 Machine # [id number] Intake & Output 07/08/17 07/09/17 07/10/17 06:59 06:59 06:59 Intake Total 1429 1445 459 Output Total 750 Balance 679 1445 459 Weight 65 kg 64.5 kg General appearance: PRESENT: no acute distress, cooperative, disheveled, thin. ABSENT: mild distress, morbidly obese, obese, severe distress Head exam: PRESENT: atraumatic, normocephalic Eye exam: PRESENT: conjunctiva pale, EOMI. ABSENT: conjunctival injection, conjunctiva pink, nystagmus, periorbital swelling, scleral icterus Mouth exam: PRESENT: moist, neck supple, tongue midline Neck exam: ABSENT: carotid bruit, JVD, lymphadenopathy, thyromegaly, tracheal deviation, tracheostomy Respiratory exam: PRESENT: decreased breath sounds, prolonged expiratory phas, rhonchi, symmetrical, unlabored, wheezes. ABSENT: accessory muscle use, chest wall tenderness, clear to auscultation martínez, crackles, rales, retraction, stridor , tachypnea Pulses: PRESENT: normal radial pulses GI/Abdominal exam: PRESENT: diminished bowel sounds, soft Extremities exam: ABSENT: clubbing, full ROM, joint swelling Musculoskeletal exam: PRESENT: ambulatory, full ROM. ABSENT: deformity, dislocation Neurological exam: PRESENT: alert, awake Psychiatric exam: PRESENT: normal mood Skin exam: PRESENT: dry, warm Results Laboratory Results: 07/09/17 04:30 07/09/17 04:30 07/09/17 07/09/17 04:30 04:30 WBC 14.1 H RBC 4.17 Hgb 10.5 L Hct 33.3 L MCV 80 MCH 25.1 L MCHC 31.4 L RDW 20.2 H Plt Count 397 Seg Neutrophils % Not Reportable Lymphocytes % Not Reportable Monocytes % Not Reportable Eosinophils % Not Reportable Basophils % Not Reportable Absolute Neutrophils Not Reportable Absolute Lymphocytes Not Reportable Absolute Monocytes Not Reportable Absolute Eosinophils Not Reportable Absolute Basophils Not Reportable Sodium 138.8 Potassium 5.1 H Chloride 95 L Carbon Dioxide 39 H Anion Gap 5 BUN 32 H Creatinine 0.62 Est GFR ( Amer) > 60 Est GFR (Non-Af Amer) > 60 Glucose 208 H Calcium 9.7 Magnesium 2.2 06/29/17 06/29/17 06/29/17 03:40 03:40 09:05 Creatine Kinase 56 49 CK-MB (CK-2) 1.37 Troponin I 0.029 NT-Pro-B Natriuret Pep 06/29/17 06/29/17 06/29/17 09:05 15:45 15:45 Creatine Kinase 35 CK-MB (CK-2) 1.48 1.27 Troponin I 0.020 0.016 NT-Pro-B Natriuret Pep 06/30/17 04:10 Creatine Kinase CK-MB (CK-2) Troponin I NT-Pro-B Natriuret Pep 245 Impressions: Chest X-Ray 07/06/17 00:00 IMPRESSION: Oblique linear density best seen in the lateral projection as noted above which could represent atelectatic changes or represent fluid within the major fissure. Remaining lung lópez are clear. Again there is evidence for obstructive lung disease. Other findings as noted above Assessment & Plan - Diagnosis (1) Acute and chronic respiratory failure with hypoxia Is this a current diagnosis for this admission?: Yes Plan: improving (2) COPD exacerbation Is this a current diagnosis for this admission?: Yes Plan: consider addition of daliresp Generic Name Dose Route Start Last Admin Trade Name Freq PRN Reason Stop Dose Admin Guaifenesin 600 mg 07/02/17 22:00 Mucinex Sr 600 Mg Tablet.Sa PO 07/29/17 09:59 Q12 ANA Zolpidem Tartrate 2.5 mg 06/30/17 22:00 07/01/17 21:42 Ambien 5 Mg Tablet PO 07/07/17 21:59 2.5 mg QHS ANA Budesonide 0.5 mg 06/29/17 20:00 07/02/17 08:33 Pulmicort Neb 0.5 Mg/2 Ml Ampul NEB 07/29/17 19:59 0.5 mg RTQ12 ANA Methylprednisolone Sodium Succinate 40 mg 07/01/17 22:00 07/02/17 09:56 Solu-Medrol Inj/Pf 40 Mg/1 Ml Sdv IV 07/31/17 21:59 40 mg Q12 ANA Albuterol/Ipratropium 3 ml 06/29/17 02:00 07/02/17 08:33 Duoneb 3 Ml Ampul NEB 07/29/17 01:59 3 ml RTQ6 ANA Levalbuterol HCl 1.25 mg 07/02/17 08:30 Xopenex Neb 1.25 Mg/3 Ml Ampul NEB 07/29/17 00:31 RTQ2HP PRN WHEEZING/DYSPNEA Methylprednisolone Sodium Succinate 60 mg 06/07/17 22:00 06/12/17 07:11 Solu-Medrol Inj/Pf 125 Mg/2 Ml Sdv IV 07/07/17 21:59 60 mg Q8 ANA Levalbuterol HCl 1.25 mg 06/09/17 12:00 06/12/17 08:06 Xopenex Neb 1.25 Mg/3 Ml Ampul NEB 07/09/17 11:59 1.25 mg RTQ4 ANA Fluticasone Propionate 2 spray 06/08/17 10:00 06/11/17 09:44 Flonase Nasal [place] 50 Mcg/[place] 16 Gm NASL 07/08/17 09:59 2 spray DAILY ANA (3) Anemia Qualifiers: Anemia type: unspecified type Qualified Code(s): D64.9 - Anemia, unspecified Is this a current diagnosis for this admission?: Yes Plan: Chronic disease (4) Anxiety Is this a current diagnosis for this admission?: Yes Plan: stable (5) Atrial fibrillation with RVR Is this a current diagnosis for this admission?: Yes Plan: well controlled
--- NOTE | 2017-07-09 15:55 | PDOC DISCHARGE SUMMARY ---
General - Admit/Disc Date/PCP Admission Date/Primary Care Provider: 06/28/17 23:54 JUVENAL OROPEZA MD Disassembler Product: Dr. Talbot Discharge Date: 07/09/17 - Discharge Diagnosis (1) Acute and chronic respiratory failure with hypoxia Is this a current diagnosis for this admission?: Yes Summary: The patient is stable at this point. Her acute respiratory failure has resolved. It was due to an acute COPD exacerbation as well as congestive heart failure exacerbation. She has a trilogy machine at home. She is back to her baseline oxygen requirements. (2) COPD exacerbation Is this a current diagnosis for this admission?: Yes Summary: She will complete a steroid taper as an outpatient. (3) Acute on chronic diastolic (congestive) heart failure Is this a current diagnosis for this admission?: Yes Summary: Currently euvolemic. She will continue p.o. Lasix as an outpatient. (4) Atrial fibrillation and flutter Is this a current diagnosis for this admission?: Yes Summary: Stable. ContinueCardizem and metoprolol (5) Diabetes Is this a current diagnosis for this admission?: Yes Summary: Unfortunately the patient's blood sugars have been significantly high. Currently they are marginally controlled on 25 units of Lantus with 9 units of Humalog 3 times daily before meals. She has been seen by her diabetes nurse educator as well as the nursing staff and has learned how to give herself insulin injections. I have asked her to check her blood sugars 3 times a day and write them down. We will get her an appointment as soon as possible with her primary care physician. Once we get her off the steroids hopefully her insulin requirements will decrease. She was not insulin-dependent prior to this hospitalization per the patient. (6) Hypertension Is this a current diagnosis for this admission?: Yes Summary: Stable (7) Anxiety Is this a current diagnosis for this admission?: Yes Summary: Stable (8) Full code status Is this a current diagnosis for this admission?: Yes - Additional Information Resuscitation Status: Full Code Discharge Diet: Cardiac, Diabetic Discharge Activity: Activity As Tolerated, Balance Activity w/Rest, Energy Conservation, Slowly Increase Activity, Weigh Daily Prescriptions: Insulin Glargine,Hum.rec.anlog [Lantus Insulin 100 Unit/mL] 25 unit SUBCUT QHS # 1 pkg Insulin Lispro [Humalog Kwikpen U-100] 8 unit SQ TID #1 pkg Prednisone 10 mg PO ASDIR #39 tablet Home Medications: Albuterol Sulfate [Ventolin HFA MDI 18 GM] 1 puff IH Q6HP PRN 06/29/17 Fluticasone Propionate [Flonase Nasal [place] 50 Mcg/[place] 16 gm] 1 spray NASL DAILYP PRN 06/29/17 Montelukast Sodium [Singulair 10 mg Tablet] 10 mg PO QPM 06/29/17 Tiotropium [place] [Spiriva Respimat] 2 puff IH DAILY 06/29/17 Apixaban [Eliquis 5 mg Tablet] 5 mg PO BID tablet 07/09/17 Aspirin [Ecotrin 81 mg EC Tablet] 81 mg PO DAILY tabec 07/09/17 Budesonide [Pulmicort Neb 0.5 mg/2 ml Ampul] 0.5 mg NEB RTQ12 ampul.neb Digoxin [Lanoxin 0.125 mg Tablet] 0.125 mg PO DAILY tablet 07/09/17 Diltiazem HCl [Cardizem Cd 180 mg Capsule] 180 mg PO DAILY capsule.cr 07/09/17 Ferrous Sulfate [Feosol 325 mg Tablet] 325 mg PO DAILY tablet 07/09/17 Folic Acid [Folvite 1 mg Tablet] 1 mg PO DAILY tablet 07/09/17 Furosemide [Lasix 40 mg Tablet] 40 mg PO DAILY tablet 07/09/17 Glipizide [Glucotrol 5 mg Tablet] 5 mg PO BIDACBS tablet 07/09/17 Guaifenesin [Robitussin Syrup 200 mg/10 ml Ud Cup] 200 mg PO Q4 udc 07/09/17 Insulin Glargine,Hum.rec.anlog [Lantus Insulin 100 Unit/mL] 25 unit SUBCUT QHS # 1 pkg 07/09/17 Insulin Lispro [Humalog Kwikpen U-100] 8 unit SQ TID #1 pkg 07/09/17 Levalbuterol HCl [Xopenex Neb 0.63 mg/3 ml Ampul] 0.63 mg NEB [id number] vial.neb 07/09/17 Metoprolol Succinate [Toprol Xl 50 mg Tab.sr] 50 mg PO DAILY tab.sr.24h Multivitamin [Tab-A-Stef (Multiple Vitamin) Tablet] 1 tab PO DAILY tablet 07/09 Potassium Chloride [Klor-Con 10 Meq Tablet.sa] 20 meq PO DAILY tablet.sa Prednisone 10 mg PO ASDIR #39 tablet 07/09/17 History of Present Illness History of Present Illness: TERE VALERIO is a 56 year old female who presented to the emergency room with worsening shortness of breath. Hospital Course Hospital Course: Please see complete medical record for details. This is been a prolonged hospitalization and this will be a brief summary. The patient is an unfortunate 56-year-old female with a past medical history significant for atrial flutter, congestive heart failure, pulmonary hypertension and end-stage oxygen dependent COPD. She was brought to the emergency room with increased shortness of breath. She also had had increased lower extremity edema. She was found to be having an acute congestive heart failure exacerbation as well as a COPD exacerbation. She was admitted to the hospital and started on IV Lasix as well as IV Solu-Medrol and aggressive breathing treatments. Her hospitalization was unfortunately she has been quite slow to improve. She has been followed closely by pulmonology. At this point the patient says that she is about back to her baseline breathing. She has a trilogy machine at home. Discussions were had with the patient regarding the severity of her lung disease. She was seen by our palliative care team and would like to have palliative care services set up at the time of discharge. We did discuss her CODE STATUS and at this point she would like to remain a full code. She is aware that if she is intubated that her lungs are so bad that she might never be able to be weaned off the ventilator. She states that her family can deal with that when the time comes but for now she would like everything done. She also would like to come back to the hospital for aggressive therapy should she worsen. She does like the concept of palliative care and is hoping that with their assistance they can help keep her out of the hospital going forward. Further treatments will need to be had with this patient. At this point it is felt that she can safely be discharged home with close outpatient follow-up. It does appear that she has developed diabetes and her blood sugars have been significantly uncontrolled. Currently they are adequately controlled on 25 mg of Lantus with 9 units of Humalog 3 times daily before meals. She has been instructed on how to use insulin. She is to check her blood sugar 3 times a day and write down the values and take to her primary care physician at her next appointment. Hopefully if we can wean her off of the steroids her insulin requirements will go down although I am not sure she will be able to be totally weaned off. She will be discharged home today in poor but stable condition Physical Exam Vital Signs: Temp Pulse Resp BP Pulse Ox 98.1 F 76 20 99/79 L 95 07/09/17 11:57 07/09/17 13:34 07/09/17 13:34 07/09/17 11:57 07/09/17 13:34 Pulse Oximeter Continuous Start: 06/29/17 00: 33 Freq: RTQ4 Status: Hold Document 07/06/17 08:00 [facility] (Rec: 07/06/17 10:57 [facility] [id number]) Pulse Oximetry Assessment Oxygen Saturation (92-100) 100 Oxygen Flow Rate (L/min) 2 Oxygen Delivery Method Nasal Cannula Equipment Usage Equipment Standby Continuous SpO2 Machine # [id number] Intake & Output 07/08/17 07/09/17 07/10/17 06:59 06:59 06:59 Intake Total 1429 1445 459 Output Total 750 Balance 679 1445 459 Weight 65 kg 64.5 kg General appearance: PRESENT: no acute distress, well-developed, well-nourished Head exam: PRESENT: atraumatic, normocephalic Mouth exam: PRESENT: moist, tongue midline Respiratory exam: PRESENT: decreased breath sounds Cardiovascular exam: PRESENT: RRR. ABSENT: diastolic murmur, rubs, systolic murmur GI/Abdominal exam: PRESENT: normal bowel sounds, soft. ABSENT: distended, guarding, mass, organolmegaly, rebound, tenderness Extremities exam: PRESENT: full ROM. ABSENT: calf tenderness, clubbing, pedal edema Neurological exam: PRESENT: alert, awake, oriented to person, oriented to place , oriented to time, oriented to situation, CN II-XII grossly intact. ABSENT: motor sensory deficit Psychiatric exam: PRESENT: appropriate affect, normal mood. ABSENT: homicidal ideation, suicidal ideation Skin exam: PRESENT: dry, intact, warm. ABSENT: cyanosis, rash Results Laboratory Results: 07/09/17 04:30 07/09/17 04:30 07/09/17 07/09/17 04:30 04:30 WBC 14.1 H RBC 4.17 Hgb 10.5 L Hct 33.3 L MCV 80 MCH 25.1 L MCHC 31.4 L RDW 20.2 H Plt Count 397 Seg Neutrophils % Not Reportable Lymphocytes % Not Reportable Monocytes % Not Reportable Eosinophils % Not Reportable Basophils % Not Reportable Absolute Neutrophils Not Reportable Absolute Lymphocytes Not Reportable Absolute Monocytes Not Reportable Absolute Eosinophils Not Reportable Absolute Basophils Not Reportable Sodium 138.8 Potassium 5.1 H Chloride 95 L Carbon Dioxide 39 H Anion Gap 5 BUN 32 H Creatinine 0.62 Est GFR ( Amer) > 60 Est GFR (Non-Af Amer) > 60 Glucose 208 H Calcium 9.7 Magnesium 2.2 06/29/17 06/29/17 06/29/17 03:40 03:40 09:05 Creatine Kinase 56 49 CK-MB (CK-2) 1.37 Troponin I 0.029 NT-Pro-B Natriuret Pep 06/29/17 06/29/17 06/29/17 09:05 15:45 15:45 Creatine Kinase 35 CK-MB (CK-2) 1.48 1.27 Troponin I 0.020 0.016 NT-Pro-B Natriuret Pep 06/30/17 04:10 Creatine Kinase CK-MB (CK-2) Troponin I NT-Pro-B Natriuret Pep 245 Impressions: Chest X-Ray 07/06/17 00:00 IMPRESSION: Oblique linear density best seen in the lateral projection as noted above which could represent atelectatic changes or represent fluid within the major fissure. Remaining lung lópez are clear. Again there is evidence for obstructive lung disease. Other findings as noted above Plan Discharge Plan: She will be discharged home today in stable condition. Time Spent: Greater than 30 Minutes
[2017-07-09 16:20] VITALS: BP 131/67
[2017-07-09] MEDS ORDERED: INSULIN GLARGINE,HUM.REC.ANLOG 300 UNIT/3 ML INSULN.PEN SUBCUT SCH (22:00)
== END 2017-07-09 16:50 | disposition home or self-care (01) | DRG 189 ==
LOC: ER 20:50 → EH 23:54 → 3W 06-29 11:23 → 3N 07-08 00:37
PROVIDERS: ADMIT Family Medicine; ATTEND Family Medicine
DX: J96.21 Acute and chronic respiratory failure with hypoxia (principal); I50.33 Acute on chronic diastolic (congestive) heart failure; J44.1 Chronic obstructive pulmonary disease with (acute) exacerbation; I48.3 Typical atrial flutter; J96.22 Acute and chronic respiratory failure with hypercapnia; I48.91 Unspecified atrial fibrillation; I11.0 Hypertensive heart disease with heart failure; E11.65 Type 2 diabetes mellitus with hyperglycemia; I48.2 Chronic atrial fibrillation; I27.20 Pulmonary hypertension, unspecified; D64.9 Anemia, unspecified; F41.9 Anxiety disorder, unspecified; F17.210 Nicotine dependence, cigarettes, uncomplicated; I25.2 Old myocardial infarction; Z87.820 Personal history of traumatic brain injury; Z79.01 Long term (current) use of anticoagulants; Z79.84 Long term (current) use of oral hypoglycemic drugs; Z79.51 Long term (current) use of inhaled steroids; Z79.899 Other long term (current) drug therapy; Z99.81 Dependence on supplemental oxygen
CPT/HCPCS: 36415; 51702; 71045; 71046; 80048; 80053; 81001; 82550; 82553; 82803; 82947; 82962; 83605; 83735; 83880; 84100; 84484; 85025; 87040; 87086; 93005; 93010; 94660; 94762; 94799; 99285; J1815; J1940; J2920; J3490; J7512; J7614; J7620

== ENCOUNTER 2017-07-12 14:11 | Inpatient (IN) | payer MEDICARE, MEDICAID ==
[2017-07-12] MEDS ORDERED: ADENOSINE INJ/PF 6 MG/2 ML SDV IV ONE ×2 (14:23→14:41)
[2017-07-12] MEDS ORDERED: DILTIAZEM HCL INJ 25 MG/5 ML VIAL ONE (14:29)
[2017-07-12] MEDS ORDERED: DILTIAZEM HCL INJ 25 MG/5 ML VIAL IV ONE ×2 (14:41→15:12)
[2017-07-12] MEDS ORDERED: DILTIAZEM HCL/D5W 125 MG/125 ML RTUINJ IV PRN (14:41)
[2017-07-12] MEDS ORDERED: NORMAL SALINE 1000 ML 1,000 ML IV ONE ×2 (14:46→17:05)
--- NOTE | 2017-07-12 15:38 | EKG REPORT ---
SEVERITY:- ABNORMAL ECG - Probable underlying sinus rhythm. Frequent APCs. Due to baseline artifact cannot rule out underlying atrial flutter fibrillation. BORDERLINE RIGHT AXIS DEVIATION ABNORMAL T, CONSIDER ISCHEMIA, DIFFUSE LEADS : Confirmed by: Kelby Grover 12-Jul-2017 15:38:43
--- NOTE | 2017-07-12 15:39 | EKG REPORT ---
SEVERITY:- ABNORMAL ECG - SUPRAVENTRICULAR TACHYCARDIA RIGHT AXIS DEVIATION CONSIDER LEFT VENTRICULAR HYPERTROPHY REPOLARIZATION ABNORMALITY, PROB RATE RELATED : Confirmed by: Kelby Grover 12-Jul-2017 15:38:58
--- NOTE | 2017-07-12 15:47 | RADIOLOGY REPORT (SQ) ---
EXAM DESCRIPTION: CHEST SINGLE VIEW COMPLETED DATE/TIME: 07/12/2017 3:40 pm REASON FOR STUDY: chest pain COMPARISON: 07/06/2017 EXAM PARAMETERS: NUMBER OF VIEWS: One view. TECHNIQUE: Single frontal radiographic view of the chest acquired. RADIATION DOSE: NA LIMITATIONS: None. FINDINGS: LUNGS AND PLEURA: COPD. No evidence of pulmonary edema or pneumonia. MEDIASTINUM AND HILAR STRUCTURES: No masses. Contour normal. HEART AND VASCULAR STRUCTURES: Stable heart size. BONES: No acute findings. HARDWARE: None in the chest. OTHER: No other significant finding. IMPRESSION: NO ACUTE RADIOGRAPHIC FINDING IN THE CHEST. TECHNICAL DOCUMENTATION: JOB ID: [id number] [employer]- All Rights Reserved
[2017-07-12 15:52] LABS: APPEARANCE,URINE SLIGHTLY-CLOUDY; BILIRUBIN,URINE NEGATIVE (NEGATIVE); COLOR,URINE YELLOW; GLUCOSE, URINE 50 mg/dL (NEGATIVE); KETONES,URINE NEGATIVE (NEGATIVE); LEUKOCYTE ESTERASE,URINE NEGATIVE (NEGATIVE); NITRITE,URINE NEGATIVE (NEGATIVE); PROTEIN,URINE 100 mg/dL (NEGATIVE); URINE SPECIFIC GRAVITY 1.011; UROBILINOGEN,URINE NEGATIVE mg/dL (<2.0)
[2017-07-12 16:07] LABS: URINE AMPHETAMINES SCREEN NEGATIVE; URINE BARBITURATES SCREEN NEGATIVE; URINE BENZODIAZEPINES SCREEN NEGATIVE; URINE COCAINE SCREEN NEGATIVE; URINE MARIJUANA (THC) SCREEN NEGATIVE; URINE METHADONE SCREEN NEGATIVE; URINE PHENCYCLIDINE SCREEN NEGATIVE
[2017-07-12 16:11] LABS: INTERNATIONAL RATION (INR) 1.02; PROTHROMBIN TIME 14.1 SEC (11.4-15.4)
[2017-07-12 16:18] LABS: HEMATOCRIT 36.1 % (36.0-47.0); HEMOGLOBIN 11.1 g/dL (12.0-15.5); MEAN CORPUSCULAR HEMOGLOBIN 24.9 pg (27.0-33.4); MEAN CORPUSCULAR HGB CONC 30.8 g/dL (32.0-36.0); MEAN CORPUSCULAR VOLUME 81 fl (80-97); PLATELET COUNT 347 10^3/uL (150-450); RED BLOOD COUNT 4.46 10^6/uL (3.72-5.28); RED CELL DISTRIBUTION WIDTH 20.6 % (11.5-14.0); WHITE BLOOD COUNT 28.8 10^3/uL (4.0-10.5)
[2017-07-12 16:37] LABS: ABSOLUTE LYMPHOCYTES# (MANUAL) 0.9 10^3/uL (0.5-4.7); ABSOLUTE MONOCYTES # (MANUAL) 0.6 10^3/uL (0.1-1.4); ABSOLUTE NEUTROPHILS# (MANUAL) 27.4 10^3/uL (1.7-8.2); ALANINE AMINOTRANSFERASE 49 U/L (9-52); ALBUMIN 3.3 g/dL (3.5-5.0); ALKALINE PHOSPHATASE 68 U/L (38-126); ASPARTATE AMINO TRANSFERASE 52 U/L (14-36); BAND NEUTROPHILS % (MANUAL) 7 % (3-5); BASOPHILS % (MANUAL) 0 % (0-2); BILIRUBIN,DIRECT 0.3 mg/dL (0.0-0.4); BILIRUBIN,TOTAL 0.6 mg/dL (0.2-1.3); BLOOD UREA NITROGEN 19 mg/dL (7-20); CALCIUM 9.2 mg/dL (8.4-10.2); CREATINE KINASE 53 U/L (30-135); EOSINOPHILS % (MANUAL) 0 % (0-6); GLUCOSE 176 mg/dL (75-110); LYMPHOCYTES % (MANUAL) 3 % (13-45); METAMYELOCYTES % (MANUAL) 1 % (0); MONOCYTES % (MANUAL) 2 % (3-13); SEGMENTED NEUTROPHILS % (MAN) 87 % (42-78); TOTAL CELLS COUNTED 100; TOTAL PROTEIN 6.3 g/dL (6.3-8.2)
[2017-07-12 16:41] LABS: ANISOCYTOSIS 2+; OVALOCYTES SLIGHT; PLATELET COMMENT ADEQUATE; PLATELET LARGE PRESENT; POIKILOCYTOSIS SLIGHT; POLYCHROMASIA SLIGHT; TOXIC VACUOLATION PRESENT
[2017-07-12 16:43] LABS: NUCLEATED RED BLOOD CELLS 0 /100 WBC (0); TOXIC GRANULATION SLIGHT
[2017-07-12] MEDS ORDERED: LEVALBUTEROL HCL NEB 0.63 MG/3 ML AMPUL NEB ONE ×2 (16:45→16:48)
[2017-07-12 16:46] LABS: CREATINE KINASE MB 0.88 ng/mL (<4.55)
[2017-07-12] MEDS ORDERED: IPRATROPIUM BROMIDE 0.02% NEB 0.5 MG/2.5 ML AMPUL NEB ONE ×2 (16:46→16:48)
[2017-07-12] MEDS ORDERED: LEVALBUTEROL HCL NEB 1.25 MG/3 ML AMPUL NEB ONE ×2 (16:47→16:48)
[2017-07-12 16:51] LABS: TROPONIN I 0.088 ng/mL
[2017-07-12] MEDS ORDERED: ETOMIDATE INJ/PF 20 MG/10 ML SDV IV ONE ×2 (16:51→17:05)
[2017-07-12 16:56] LABS: ANION GAP 7 (5-19); CARBON DIOXIDE 34 mmol/L (22-30); CHLORIDE 100 mmol/L (98-107); DIGOXIN 1.13 ng/mL (0.8-2.0); POTASSIUM 4.2 mmol/L (3.6-5.0); SODIUM 141.1 mmol/L (137-145)
[2017-07-12] MEDS ORDERED: MIDAZOLAM 2 MG/2 ML INJ ONE (17:03)
[2017-07-12] MEDS ORDERED: MIDAZOLAM 2 MG/2 ML INJ IV ONE (17:05)
[2017-07-12] MEDS ORDERED: MIDAZOLAM HCL 50 MG/100 ML RTUINJ IV ONE (17:06)
--- NOTE | 2017-07-12 17:14 | ER Document Report ---
ED Cardiac - General Chief Complaint: Palpitations Stated Complaint: RAPID HEART RATE Time Seen by Provider: 07/12/17 14:40 Mode of Arrival: Medic Information source: Patient, Relative, Emergency Med Personnel, [facility] Records TRAVEL OUTSIDE OF THE [place] IN LAST 30 DAYS: No - HPI Patient complains to provider of: Chest pain, Palpitations, Shortness of breath Use of: denies: Alcohol, Amphetamines, Bath salts, Caffeine, Cocaine, Decongestants Was the onset of pain: Sudden Is the pain a: New problem Chest pain location: Substernal Quality of pain: Tightness Chest pain radiation location: None Severity now: Mild Severity at worst: Moderate Chest pain precipitating factors: At Rest Cardiac risk factors: Hypertension, Smoker - FORMERLY Positive cardiac history: Yes Associated symptoms: Lightheaded, Palpitations, Shortness of breath, Weakness Exacerbated by: Denies Relieved by: Nothing Similar symptoms previously: Yes Recently seen / treated by doctor: No - Related Data Allergies/Adverse Reactions: erythromycin base [Erythromycin Base] Allergy (Mild, Verified 06/29/17 07:01) Past Medical History - General Information source: Patient, Relative, Emergency Med Personnel, [facility] Records - Social History Smoking Status: Current Every Day Smoker Chew tobacco use (# tins/day): No Smoking Education Provided: No Frequency of alcohol use: None Drug Abuse: None Lives with: Family Family History: CAD, COPD, Hypertension Patient has suicidal ideation: No Patient has homicidal ideation: No - Past Medical History Cardiac Medical History: Reports: Hx Atrial Fibrillation, Hx Congestive Heart Failure, Hx Heart Attack, Hx Hypertension Pulmonary Medical History: Reports: Hx COPD - SEEN BY DR. QUINTERO, Hx Pneumonia Neurological Medical History: Denies: Hx Cerebrovascular Accident, Hx Migraine Endocrine Medical History: Reports: 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 Renal/ Medical History: Denies: Hx Peritoneal Dialysis GI Medical History: Denies: Hx Cirrhosis, Hx Crohn's Disease, Hx Ulcerative Colitis Musculoskeltal Medical History: Reports Hx Arthritis, Denies Hx Gout Skin Medical History: Denies Hx Psoriasis Psychiatric Medical History: Denies: Hx Depression Traumatic Medical History: Reports: Hx Traumatic Brain Injury Past Surgical History: Reports: Hx Cardiac Catheterization, Hx Section - Immunizations Immunizations up to date: Yes Hx Diphtheria, Pertussis, Tetanus Vaccination: Yes Hx Pneumococcal Vaccination: 05/18/12 Review of Systems - Review of Systems Constitutional: Weakness EENT: No symptoms reported Cardiovascular: See HPI Respiratory: See HPI Gastrointestinal: No symptoms reported Female Genitourinary: Post menopausal Musculoskeletal: No symptoms reported Skin: No symptoms reported Neurological/Psychological: No symptoms reported Physical Exam - Vital signs Vitals: Resp 31 H 07/12/17 14:15 Course - Vital Signs Vital signs: Temp Pulse Resp BP Pulse Ox 31 H 121/80 100 07/12/17 16:16 07/12/17 16:10 07/12/17 16:16 - Laboratory Result Diagrams: 07/12/17 14:26 07/12/17 14:26 Laboratory results interpreted by me: 07/12/17 07/12/17 07/12/17 14:26 14:26 14:26 WBC 28.8 H Hgb 11.1 L MCH 24.9 L MCHC 30.8 L RDW 20.6 H Seg Neuts % (Manual) 87 H Band Neutrophils % 7 H Lymphocytes % (Manual) 3 L Monocytes % (Manual) 2 L Metamyelocytes % 1 H Abs Neuts (Manual) 27.4 H Carbon Dioxide 34 H Glucose 176 H AST 52 H NT-Pro-B Natriuret Pep 1370 H Albumin 3.3 L Urine Protein Urine Glucose (UA) 07/12/17 15:20 WBC Hgb MCH MCHC RDW Seg Neuts % (Manual) Band Neutrophils % Lymphocytes % (Manual) Monocytes % (Manual) Metamyelocytes % Abs Neuts (Manual) Carbon Dioxide Glucose AST NT-Pro-B Natriuret Pep Albumin Urine Protein 100 H Urine Glucose (UA) 50 H Procedures - Intubation Orotracheal Time of Intubation: 16:44 Airway evaluation: Normal anatomy. No: Large tongue, Loose teeth, Obese Mallampati Classification: Class 2 Medications: Etomidate, Other - ROCURONIUM Intubation method: Orotracheal Blade size: 3 Equipment used: Glidescope ETT size: 7.0 ETT secured at: Teeth ETT secured at (cm): 25 Breath Sounds after Intubation: Equal, Other - NO GASTRIC SOUNDS End tidal CO2 confirmed: Yes Ventilator settings: PS Tidal volume: 450 FiO2: 40 Respirations: 14 PEEP: 5 Post Intubation Xray: Yes - ET AND OG TUBES SATISFACTORY Intubation Complications: No complications Critical Care Note - Critical Care Note Total time excluding time spent on procedures (mins): 90 Comments: UNSTABLE VITAL SIGNS, ACUTE RESPIRATORY FAILURE, AGGRESSIVE INTERVENTION NECESSARY TO AVOID MORBIDITY & MORTALITY, COMPLEX DECISION-MAKING. Discharge - Discharge Clinical Impression: Supraventricular tachycardia, COPD exacerbation Acute and chronic respiratory failure Qualifiers: Respiratory failure complication: hypoxia Qualified Code(s): J96.21 - Acute and chronic respiratory failure with hypoxia Condition: Serious Disposition: ADMITTED INPATIENT Admitting Provider: Hospitalist Unit Admitted: ICU
[2017-07-12] MEDS ORDERED: ACETAMINOPHEN 650 MG SUPP.RECT PR ONE (17:28)
--- NOTE | 2017-07-12 17:55 | RADIOLOGY REPORT (SQ) ---
EXAM DESCRIPTION: CHEST SINGLE VIEW COMPLETED DATE/TIME: 07/12/2017 5:42 pm REASON FOR STUDY: ET TUBE PLACEMENT COMPARISON: 07/12/2017 EXAM PARAMETERS: NUMBER OF VIEWS: One view. TECHNIQUE: Single frontal radiographic view of the chest acquired. RADIATION DOSE: NA LIMITATIONS: None. FINDINGS: LUNGS AND PLEURA: No opacities, masses or pneumothorax. No pleural effusion. MEDIASTINUM AND HILAR STRUCTURES: No masses. Contour normal. HEART AND VASCULAR STRUCTURES: Heart normal in size. Normal vasculature. BONES: No acute findings. HARDWARE: Endotracheal tube is seen with its tip the level of the thoracic inlet. NG tube is seen wi th its tip in the left upper quadrant presumably in the stomach. Overlying monitoring devices are id entified OTHER: No other significant finding. IMPRESSION: Endotracheal tube and NG tube in appropriate position. Other findings as noted above TECHNICAL DOCUMENTATION: JOB ID: [id number] [employer]- All Rights Reserved
[2017-07-12] MEDS ORDERED: VANCOMYCIN HCL 0 MG in DEXTROSE 5%-WATER 250 ML IV NR (18:15)
[2017-07-12] MEDS ORDERED: GLUCAGON,HUMAN RECOMB 1 MG INJ IM PRN (18:23)
[2017-07-12] MEDS ORDERED: DEXTROSE 40% GEL 15 GM TUBE PO PRN ×2 (18:23)
[2017-07-12] MEDS ORDERED: DEXTROSE 50%-WATER 25 GM/50 ML DISP.SYRIN IV PRN ×2 (18:23)
--- NOTE | 2017-07-12 18:24 | PDOC H&P ---
History of Present Illness Admission Date/PCP: None 07/12/2017 Patient complains of: Palpitations History of Present Illness: TERE VALERIO is a 56 year old female presents to the hospital with complaint of palpitations. History obtained is from the physician and the ER nurse. At time of my arrival patient was intubated. ER doctor reports that patient had complained of chest palpitations and shortness of breath. ER doctor states that when patient was attached to the monitors she was noted to have a heart rate in the upper 100s close to 200. ER physician states that he gave her adenosine to slow heart rate down and ER doctor reported that he is still unsure what type of rhythm she had. She was seen by cardiology who gave patient dig and patient was placed on diltiazem drip. At time of my arrival patient's heart rate was around 110. Patient was recently hospitalized for COPD exacerbation and was noted to have history of A. fib with atrial flutter. Obtaining history was limited due to patient being intubated and no family present. Past Medical History Cardiac Medical History: Reports: Atrial Fibrillation, Congestive Heart Failure , Myocardial Infarction, Hypertension Pulmonary Medical History: Reports: Chronic Obstructive Pulmonary Disease (COPD) , Pneumonia Neurological Medical History: Denies: Migraine Endocrine Medical History: Reports: Diabetes Mellitus Type 2 - 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 GI Medical History: Denies: Cirrhosis, Crohn's Disease, Ulcerative Colitis Musculoskeltal Medical History: Reports: Arthritis Denies: Gout Skin Medical History: Denies: Psoriasis Psychiatric Medical History: Denies: Depression Traumatic Medical History: Reports: Traumatic Brain Injury Hematology: Reports: Anemia Denies: Sickle Cell Disease Past Surgical History Past Surgical History: Reports: Cardiac Catheterization, Section Social History Smoking Status: Current Every Day Smoker Frequency of Alcohol Use: None Hx Recreational Drug Use: No Drugs: None Hx Prescription Drug Abuse: No - Advance Directive Resuscitation Status: Full Code Family History Family History: CAD, COPD, Hypertension Parental Family History Reviewed: Yes Children Family History Reviewed: Yes Sibling(s) Family History Reviewed.: Yes Medication/Allergy Home Medications: Albuterol Sulfate [Ventolin HFA MDI 18 GM] 1 puff IH Q6HP PRN 06/29/17 Fluticasone Propionate [Flonase Nasal [place] 50 Mcg/[place] 16 gm] 1 spray NASL DAILYP PRN 06/29/17 Montelukast Sodium [Singulair 10 mg Tablet] 10 mg PO QPM 06/29/17 Tiotropium Nordman [Spiriva Respimat] 2 puff IH DAILY 06/29/17 Apixaban [Eliquis 5 mg Tablet] 5 mg PO BID tablet 07/09/17 Aspirin [Ecotrin 81 mg EC Tablet] 81 mg PO DAILY tabec 07/09/17 Budesonide [Pulmicort Neb 0.5 mg/2 ml Ampul] 0.5 mg NEB RTQ12 ampul.neb Digoxin [Lanoxin 0.125 mg Tablet] 0.125 mg PO DAILY tablet 07/09/17 Diltiazem HCl [Cardizem Cd 180 mg Capsule] 180 mg PO DAILY capsule.cr 07/09/17 Ferrous Sulfate [Feosol 325 mg Tablet] 325 mg PO DAILY tablet 07/09/17 Folic Acid [Folvite 1 mg Tablet] 1 mg PO DAILY tablet 07/09/17 Furosemide [Lasix 40 mg Tablet] 40 mg PO DAILY tablet 07/09/17 Glipizide [Glucotrol 5 mg Tablet] 5 mg PO BIDACBS tablet 07/09/17 Guaifenesin [Robitussin Syrup 200 mg/10 ml Ud Cup] 200 mg PO Q4 udc 07/09/17 Insulin Glargine,Hum.rec.anlog [Lantus Insulin 100 Unit/mL] 25 unit SUBCUT QHS # 1 pkg 07/09/17 Insulin Lispro [Humalog Kwikpen U-100] 8 unit SQ TID #1 pkg 07/09/17 Levalbuterol HCl [Xopenex Neb 0.63 mg/3 ml Ampul] 0.63 mg NEB [id number] vial.neb 07/09/17 Metoprolol Succinate [Toprol Xl 50 mg Tab.sr] 50 mg PO DAILY tab.sr.24h Multivitamin [Tab-A-Stef (Multiple Vitamin) Tablet] 1 tab PO DAILY tablet 07/09 Potassium Chloride [Klor-Con 10 Meq Tablet.sa] 20 meq PO DAILY tablet.sa Prednisone 10 mg PO ASDIR #39 tablet 07/09/17 Allergies/Adverse Reactions: erythromycin base [Erythromycin Base] Allergy (Mild, Verified 06/29/17 07:01) Review of Systems ROS unobtainable: Due to endotracheal tube Physical Exam Vital Signs: Temp Pulse Resp BP Pulse Ox 31 H 121/80 100 07/12/17 16:16 07/12/17 16:10 07/12/17 16:16 Intake & Output 07/11/17 07/12/17 07/13/17 06:59 06:59 06:59 Weight 63.7 kg General appearance: PRESENT: other - ET tube in place, patient sedated Head exam: PRESENT: atraumatic, normocephalic Eye exam: PRESENT: other - ET tube in place, patient sedated. ABSENT: scleral icterus Ear exam: PRESENT: normal external ear exam Mouth exam: PRESENT: moist, tongue midline Neck exam: ABSENT: carotid bruit, JVD, lymphadenopathy, thyromegaly Respiratory exam: PRESENT: other - Positive for prolonged expiratory phase with wheezing heard in all lung lópez patient does have good chest rise Cardiovascular exam: PRESENT: tachycardia. ABSENT: diastolic murmur, rubs, systolic murmur Pulses: PRESENT: normal dorsalis pedis pul Vascular exam: PRESENT: normal capillary refill GI/Abdominal exam: PRESENT: normal bowel sounds, soft. ABSENT: distended, guarding, mass, organolmegaly, rebound, tenderness Rectal exam: PRESENT: deferred Extremities exam: PRESENT: full ROM. ABSENT: calf tenderness, clubbing, pedal edema Neurological exam: PRESENT: other Psychiatric exam: PRESENT: other - Sedated Skin exam: PRESENT: dry, intact, warm. ABSENT: cyanosis, rash Results Laboratory Results: 07/12/17 14:26 07/12/17 14:26 07/12/17 07/12/17 07/12/17 14:26 14:26 14:26 WBC 28.8 H RBC 4.46 Hgb 11.1 L Hct 36.1 MCV 81 MCH 24.9 L MCHC 30.8 L RDW 20.6 H Plt Count 347 Seg Neutrophils % Not Reportable Lymphocytes % Not Reportable Monocytes % Not Reportable Eosinophils % Not Reportable Basophils % Not Reportable Absolute Neutrophils Not Reportable Absolute Lymphocytes Not Reportable Absolute Monocytes Not Reportable Absolute Eosinophils Not Reportable Absolute Basophils Not Reportable Sodium 141.1 Potassium 4.2 Chloride 100 Carbon Dioxide 34 H Anion Gap 7 BUN 19 Creatinine 0.78 Est GFR ( Amer) > 60 Est GFR (Non-Af Amer) > 60 Glucose 176 H Calcium 9.2 Magnesium 2.0 Total Bilirubin 0.6 AST 52 H ALT 49 Alkaline Phosphatase 68 Total Protein 6.3 Albumin 3.3 L TSH 0.83 Urine Color Urine Appearance Urine pH Ur Specific [place] Urine Protein Urine Glucose (UA) Urine Ketones Urine Blood Urine Nitrite Ur Leukocyte Esterase Urine WBC (Auto) Urine RBC (Auto) 07/12/17 15:20 WBC RBC Hgb Hct MCV MCH MCHC RDW Plt Count Seg Neutrophils % Lymphocytes % Monocytes % Eosinophils % Basophils % Absolute Neutrophils Absolute Lymphocytes Absolute Monocytes Absolute Eosinophils Absolute Basophils Sodium Potassium Chloride Carbon Dioxide Anion Gap BUN Creatinine Est GFR ( Amer) Est GFR (Non-Af Amer) Glucose Calcium Magnesium Total Bilirubin AST ALT Alkaline Phosphatase Total Protein Albumin TSH Urine Color YELLOW Urine Appearance SLIGHTLY-CLOUDY Urine pH 7.0 Ur Specific [place] 1.011 Urine Protein 100 H Urine Glucose (UA) 50 H Urine Ketones NEGATIVE Urine Blood NEGATIVE Urine Nitrite NEGATIVE Ur Leukocyte Esterase NEGATIVE Urine WBC (Auto) 3 Urine RBC (Auto) 6 07/12/17 07/12/17 14:26 14:26 Creatine Kinase 53 CK-MB (CK-2) 0.88 Troponin I 0.088 NT-Pro-B Natriuret Pep 1370 H Impressions: Chest X-Ray 07/12/17 17:04 IMPRESSION: Endotracheal tube and NG tube in appropriate position. Other findings as noted above Assessment & Plan - Diagnosis (1) Acute and chronic respiratory failure with hypoxia Is this a current diagnosis for this admission?: Yes Plan: Secondary to acute exacerbation of COPD: We will place on steroids, breathing treatments, cefepime, vancomycin. Patient's chest x-ray does not show infiltrate. However will empirically treat patient was recently hospitalized. Dr. Talbot has been consulted (2) COPD exacerbation Is this a current diagnosis for this admission?: Yes Plan: We will place on steroids, breathing treatments, and antibiotics. Dr. Talbot has been consulted (3) Leukocytosis Is this a current diagnosis for this admission?: Yes Plan: Etiology unclear could possibly be related to steroids due to patient being recently admitted for COPD exacerbation however will screen for infectious etiology. In the meantime will place on cefepime and vancomycin. Urine culture , blood culture, sputum culture have been ordered (4) DM type 2 (diabetes mellitus, type 2) Is this a current diagnosis for this admission?: Yes Plan: We will place on sliding scale insulin (5) Elevated LFTs Is this a current diagnosis for this admission?: Yes Plan: We will monitor (6) Atrial flutter Qualifiers: Is this a current diagnosis for this admission?: Yes Plan: We will continue Cardizem drip. Patient was given dig. Cardiology consulted (7) Tobacco abuse counseling Is this a current diagnosis for this admission?: Yes Plan: We will encourage discontinuation of tobacco products. (8) Tachycardia Is this a current diagnosis for this admission?: Yes Plan: Most likely atrial flutter: We will continue diltiazem and dig. Cardiology has been consulted. (9) SIRS (systemic inflammatory response syndrome) Is this a current diagnosis for this admission?: Yes Plan: Secondary to heart rate, respiratory rate, respiratory failure, and elevated white blood cell count. Blood culture, urine culture, sputum culture pending (10) DVT prophylaxis Is this a current diagnosis for this admission?: Yes Plan: Heparin - Time Time Spent: 50 to 70 Minutes
[2017-07-12] MEDS ORDERED: LORAZEPAM INJ 2 MG/1 ML VIAL IV ONE (18:32)
[2017-07-12] MEDS ORDERED: VANCOMYCIN HCL 1,000 MG in DEXTROSE 5%-WATER 250 ML IV ONE (19:15)
[2017-07-12] MEDS ORDERED: SUCCINYLCHOLINE CHLORIDE INJ 200 MG/10 ML VIAL ONE (19:58)
[2017-07-12] MEDS ORDERED: ROCURONIUM BROMIDE INJ 50 MG/5 ML VIAL IV ONE (19:58)
[2017-07-12] MEDS: IPRATROPIUM/ALBUTEROL 0.5-2.5 MG/3 ML AMPUL NEB SCH (20:29)
[2017-07-12] MEDS: CEFEPIME 1 GM/D5W RTU 1 GM/50 ML RTUPB IV SCH (22:12)
[2017-07-12] MEDS: HEPARIN SOD (PORCINE) 5,000 UNIT/ML 1 ML SYRINGE SUBCUT SCH (22:14)
[2017-07-12] MEDS: INSULIN LISPRO 100 UNIT/ML 3 ML VIAL SUBCUT PRN (22:15)
[2017-07-12] MEDS: DEXTROSE 5%-LACTATED RINGERS 1,000 ML IV PRN (22:32)
[2017-07-12] MEDS ORDERED: MORPHINE SULFATE 10 MG/ML INJ ONE (23:50)
[2017-07-12 23:54] LABS: ARTERIAL BLOOD H2CO3 2.09 mmol/L (1.05-1.35); ARTERIAL BLOOD O2 SATURATION 96.9 % (94-98); ARTERIAL BLOOD PH 7.28 (7.35-7.45); ARTERIAL BLOOD PO2 103.6 mmHg (80-100); ARTERIAL BLOOD TOTAL CO2 34.2 mmol/L (21-25)
[2017-07-12 23:59] LABS: ARTERIAL BLOOD FIO2 40%
[2017-07-13] LABS: ARTERIAL BLOOD PCO2 69.4 mmHg (35-45)
[2017-07-13] MEDS: MORPHINE SULFATE 10 MG/ML INJ IV PRN ×4 (00:16→19:01)
[2017-07-13] MEDS: ACETAMINOPHEN 650 MG SUPP.RECT PR PRN (00:16)
[2017-07-13] MEDS: METHYLPREDNISOLONE INJ 125 MG/2 ML SDV IV SCH ×4 (00:18→19:01)
[2017-07-13] MEDS: DEXTROSE 5%-LACTATED RINGERS 1,000 ML IV PRN (00:19)
[2017-07-13] MEDS: MIDAZOLAM HCL 50 MG/100 ML RTUINJ IV PRN ×2 (00:40→21:20)
[2017-07-13] MEDS ORDERED: NORMAL SALINE 500 ML IV ONE ×3 (00:45→05:45)
[2017-07-13] MEDS: IPRATROPIUM/ALBUTEROL 0.5-2.5 MG/3 ML AMPUL NEB SCH ×2 (01:45→08:27)
[2017-07-13 02:26] LABS: AMORPHOUS SEDIMENT,URINE TRACE /HPF; APPEARANCE,URINE CLOUDY; BILIRUBIN,URINE NEGATIVE (NEGATIVE); COLOR,URINE YELLOW; GLUCOSE, URINE 50 mg/dL (NEGATIVE); KETONES,URINE NEGATIVE (NEGATIVE); LEUKOCYTE ESTERASE,URINE NEGATIVE (NEGATIVE); NITRITE,URINE NEGATIVE (NEGATIVE); PROTEIN,URINE 30 mg/dL (NEGATIVE); URINE SPECIFIC GRAVITY 1.023; UROBILINOGEN,URINE NEGATIVE mg/dL (<2.0)
[2017-07-13] MEDS ORDERED: DOPAMINE HCL/DEXTROSE 5%-WATER 800 MG/250 ML RTUINJ IV ONE (04:47)
[2017-07-13] MEDS ORDERED: DOPAMINE HCL 800 MG/D5W 250 ML IV PRN (04:51)
[2017-07-13 05:21] LABS: ARTERIAL BLOOD BASE EXCESS 2.8 mmol/L; ARTERIAL BLOOD H2CO3 1.51 mmol/L (1.05-1.35); ARTERIAL BLOOD HCO3 28.6 mmol/L (20-26); ARTERIAL BLOOD O2 SATURATION 93.6 % (94-98); ARTERIAL BLOOD PCO2 50.3 mmHg (35-45); ARTERIAL BLOOD PH 7.37 (7.35-7.45); ARTERIAL BLOOD PO2 70.7 mmHg (80-100); ARTERIAL BLOOD TOTAL CO2 30.2 mmol/L (21-25)
[2017-07-13 05:24] LABS: ARTERIAL BLOOD FIO2 35%
[2017-07-13] MEDS: DILTIAZEM HCL/D5W 125 MG/125 ML RTUINJ IV PRN ×2 (05:31→14:56)
[2017-07-13] MEDS ORDERED: DIGOXIN INJ 0.5 MG/2 ML AMPULE ONE (05:52)
[2017-07-13] MEDS ORDERED: DIGOXIN INJ 0.5 MG/2 ML AMPULE IV ONE ×2 (06:00→10:00)
[2017-07-13] MEDS ORDERED: VASOPRESSIN INJ 20 UNIT/1 ML VIAL ONE (06:09)
[2017-07-13] MEDS: DEXTROSE 5%-WATER 250 ML with VASOPRESSIN 100 UNIT IV PRN ×2 (06:19)
[2017-07-13] MEDS: HEPARIN SOD (PORCINE) 5,000 UNIT/ML 1 ML SYRINGE SUBCUT SCH ×3 (06:22→21:21)
[2017-07-13 07:05] LABS: ALANINE AMINOTRANSFERASE 40 U/L (9-52); ALBUMIN 2.4 g/dL (3.5-5.0); ALKALINE PHOSPHATASE 51 U/L (38-126); ANION GAP 5 (5-19); ASPARTATE AMINO TRANSFERASE 25 U/L (14-36); BILIRUBIN,DIRECT 0.1 mg/dL (0.0-0.4); BILIRUBIN,TOTAL 0.4 mg/dL (0.2-1.3); BLOOD UREA NITROGEN 14 mg/dL (7-20); CARBON DIOXIDE 29 mmol/L (22-30); CHLORIDE 108 mmol/L (98-107); GLUCOSE 218 mg/dL (75-110); POTASSIUM 4.3 mmol/L (3.6-5.0); TOTAL PROTEIN 4.4 g/dL (6.3-8.2)
[2017-07-13 07:06] LABS: MEAN CORPUSCULAR HEMOGLOBIN 25.3 pg (27.0-33.4); MEAN CORPUSCULAR HGB CONC 30.9 g/dL (32.0-36.0); MEAN CORPUSCULAR VOLUME 82 fl (80-97); PLATELET COUNT 244 10^3/uL (150-450); RED BLOOD COUNT 3.43 10^6/uL (3.72-5.28); RED CELL DISTRIBUTION WIDTH 20.8 % (11.5-14.0)
--- NOTE | 2017-07-13 07:09 | RADIOLOGY REPORT (SQ) ---
EXAM DESCRIPTION: CHEST SINGLE VIEW CLINICAL HISTORY: Respiratory Failure COMPARISON: 07/12/2017 FINDINGS: Single frontal view of the chest. Endotracheal tube with tip below the clavicles. NG tube with tip proceeding below the diaphragm. Atherosclerotic calcification aortic arch. Heart is not enlarged. No consolidation, pneumothorax, or pleural effusion. No displaced rib fractures identified. Upper abdominal soft tissues are unremarkable. IMPRESSION: 1. Stable appearance of the chest.
[2017-07-13 07:18] LABS: HEMOGLOBIN 8.7 g/dL (12.0-15.5)
[2017-07-13 07:38] LABS: ABSOLUTE LYMPHOCYTES# (MANUAL) 0.2 10^3/uL (0.5-4.7); ABSOLUTE NEUTROPHILS# (MANUAL) 22.8 10^3/uL (1.7-8.2); BAND NEUTROPHILS % (MANUAL) 4 % (3-5); BASOPHILS % (MANUAL) 0 % (0-2); EOSINOPHILS % (MANUAL) 0 % (0-6); LYMPHOCYTES % (MANUAL) 1 % (13-45); MONOCYTES % (MANUAL) 0 % (3-13); SEGMENTED NEUTROPHILS % (MAN) 95 % (42-78); TOTAL CELLS COUNTED 100
--- NOTE | 2017-07-13 07:39 | EKG REPORT ---
SEVERITY:- ABNORMAL ECG - JUNCTIONAL TACHYCARDIA BORDERLINE RIGHT AXIS DEVIATION PROLONGED QT INTERVAL : Confirmed by: Janine Aviles MD 13-Jul-2017 07:38:20
[2017-07-13 07:40] LABS: ANISOCYTOSIS 2+; HYPOCHROMASIA SLIGHT; OVALOCYTES SLIGHT; PLATELET COMMENT ADEQUATE; POIKILOCYTOSIS SLIGHT; TOXIC GRANULATION SLIGHT
--- NOTE | 2017-07-13 09:21 | PDOC CONSULTATION ---
Consultation Consult Date: 07/12/17 Attending physician:: CELESTINA AYALA Consult reason:: Atrial flutter fibrillation History of Present Illness Admission Date/PCP: 07/12/17 17:55 Patient complains of: Shortness of breath History of Present Illness: TERE VALERIO is a 56 year old female presents to the hospital with complaint of palpitations. History obtained is from the physician and the ER nurse. At time of my arrival patient was intubated. ER doctor reports that patient had complained of chest palpitations and shortness of breath. ER doctor states that when patient was attached to the monitors she was noted to have a heart rate in the upper 100s close to 200. ER physician states that he gave her adenosine to slow heart rate down and ER doctor reported that he is still unsure what type of rhythm she had. She was seen by cardiology who gave patient dig and patient was placed on diltiazem drip. At time of my arrival patient's heart rate was around 110. Patient was recently hospitalized for COPD exacerbation and was noted to have history of A. fib with atrial flutter. Obtaining history was limited due to patient being intubated and no family present. This history was reviewed and confirmed. Patient was seen by me in the emergency room prior to intubation. Patient was noted to go into intermittent atrial flutter fibrillation with rapid ventricular response. Patient's EKG was reviewed and I did confirm that patient was in underlying atrial flutter fibrillation but tended to have short period where she will revert back to sinus rhythm. Patient was noted to be in significant respiratory distress needing nonrebreather mask. I did suggest patient be put on BiPAP. It seems subsequently patient decompensated needing to be intubated. Patient has followed me in the office for sleep apnea syndrome I believe. Past Medical History Cardiac Medical History: Reports: Atrial Fibrillation, Congestive Heart Failure , Myocardial Infarction, Hypertension Pulmonary Medical History: Reports: Chronic Obstructive Pulmonary Disease (COPD ) - SEEN BY [facility] Neurological Medical History: Denies: Migraine Endocrine Medical History: Reports: Diabetes Mellitus Type 2 - 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 GI Medical History: Denies: Cirrhosis, Crohn's Disease, Ulcerative Colitis Musculoskeltal Medical History: Reports: Arthritis Denies: Gout Skin Medical History: Denies: Psoriasis Psychiatric Medical History: Denies: Depression Traumatic Medical History: Reports: Traumatic Brain Injury Hematology: Reports: Anemia Denies: Sickle Cell Disease Past Surgical History Past Surgical History: Reports: Cardiac Catheterization, Section Social History Information Source: [facility] Records Lives with: Family Smoking Status: Current Every Day Smoker Frequency of Alcohol Use: None Hx Recreational Drug Use: No Drugs: None Hx Prescription Drug Abuse: No - Advance Directive Resuscitation Status: Full Code Family History Family History: CAD, COPD, Hypertension Parental Family History Reviewed: Yes Children Family History Reviewed: Yes Sibling(s) Family History Reviewed.: Yes Medication/Allergy Home Medications: Ferrous Sulfate [Feosol 325 mg Tablet] 325 mg PO DAILY 07/12/17 Folic Acid [Folvite 1 mg Tablet] 1 mg PO DAILY 07/12/17 Sertraline HCl [Zoloft] 25 mg PO DAILY 07/12/17 Zolpidem Tartrate [Ambien 5 mg Tablet] 5 mg PO HSP PRN 07/12/17 Allergies/Adverse Reactions: erythromycin base [Erythromycin Base] Allergy (Mild, Verified 06/29/17 07:01) Review of Systems ROS unobtainable: Due to endotracheal tube Physical Exam Vital Signs: Temp Pulse Resp BP Pulse Ox 101.0 F H 14 96/43 L 100 07/12/17 19:11 07/12/17 19:11 07/12/17 19:11 07/12/17 19:11 Exam: GENERAL: well-nourished and in no acute distress. Patient is intubated and sedated. Orientation cannot be checked HEAD: Atraumatic, normocephalic. EYES: Pupils equal round and reactive to light, extraocular movements could not be checked, sclera anicteric, conjunctiva are normal. ENT: TMs normal, nares patent, oropharynx clear without exudates. Moist mucous membranes. No oral ulcerations or bleeding gums noted NECK: supple without lymphadenopathy or JVD. Trachea is central. No cervical or axillary lymphadenopathy noted. Carotids are 2+ LUNGS: Breath sounds mostly clear to auscultation patient is noted to have bibasal crackles at the extreme bases. Patient has marked diminished breath sounds both sides along with very few wheezing. CHEST: Palpation of the chest wall shows no significant chest wall tenderness or abnormalities. 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 ABDOMEN: Soft, no significant tenderness appreciated, normoactive bowel sounds. No guarding, no rebound. No rigidity noted . No masses appreciated. EXTREMITIES: Pedal pulses are 1-2+, no calf tenderness noted, 1+ pedal edema noted. No clubbing or cyanosis. NEUROLOGICAL: The patient cannot participate in the neurological exam but no facial asymmetry noted. Extremities slightly hypotonic PSYCH: This cannot be evaluated. Patient cannot participate. SKIN: No significant ecchymosis, rash, or signs of pruritus noted. MUSCULOSKELETAL EXAM: No significant joint swelling noted. Patient cannot participate in musculoskeletal exam Results EKG Comments: Twelve-lead EKG is reviewed shows atrial fibrillation and occasional atrial flutter. No acute ST-T wave changes noted Impressions: Chest X-Ray 07/12/17 17:04 IMPRESSION: Endotracheal tube and NG tube in appropriate position. 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 Could use very selective beta 1 blockers if needed. Recommend also digoxin for rate control. Also recommend chronic anticoagulation if there are no contraindications. Acute on chronic respiratory failure with hypoxemia and also hypercarbia. Review of chart shows that patient has severe emphysema. Recommend pulmonary evaluation and consultation. Patient will also benefit from warehouse specialist consultation. Febrile illness: Patient was noted to have some chills in the ER. Subsequently was noted to have high temperature. Recommend broad-spectrum antibiotics. COPD with exacerbation: Continue with aggressive steroids and bronchodilator therapy. Xopenex preferred. Diabetes: Recommend good control but avoid any hypo-or hyperglycemia. Coronary artery disease: Patient is noted to have CAD on chart review. At this point EKG not showing any acute ST-T wave changes. Troponins noted to be high and is probably related to acute respiratory failure with hypoxemia and possibly underlying sepsis. - Time Time Spent: 50 to 70 Minutes - Patient noted to be critically ill. I was at bedside for at least 20 minutes while patient in the ER trying to manage her atrial fibrillation along with ER physician. Believe that overall prognosis is guarded and on the poor side because of severe and end-stage lung disease. Believe code status would need to be addressed. Medications reviewed and adjusted accordingly: Yes
--- NOTE | 2017-07-13 09:27 | PDOC PROGRESS REPORT ---
Subjective Progress Note for:: 07/13/17 Subjective:: Patient seems to have deteriorated overnight needing initially dopamine drip and subsequently switched over to vasopressin when I was called this morning at around 6 AM about rapid heartbeat. Patient had also received some IV digoxin. Patient currently noted to be in atrial flutter with 2-1 conduction with heart rate of 140 bpm. Previous EKGs had shown patient has paroxysmal atrial flutter fibrillation with an EKG showing sinus rhythm in the chart. Patient remains intubated, sedated, patient however looks comfortable and in acute distress. Medications reviewed. Reason For Visit: ACUTE ON CHRONIC RESPIRATORY FAILURE SECONDARY TO Physical Exam Vital Signs: Temp Pulse Resp BP Pulse Ox 99.7 F 116 H 16 105/64 97 07/13/17 08:51 07/13/17 08:00 07/13/17 08:51 07/13/17 08:51 07/13/17 08:51 Intake & Output 07/12/17 07/13/17 07/14/17 06:59 06:59 06:59 Intake Total 2378 Output Total 375 60 Balance 2002 Weight 65.2 kg Exam: GENERAL: well-nourished and in no acute distress. Patient is intubated and sedated. Orientation cannot be checked HEAD: Atraumatic, normocephalic. EYES: Pupils equal round and reactive to light, extraocular movements could not be checked, sclera anicteric, conjunctiva are normal. ENT: TMs normal, nares patent, oropharynx clear without exudates. Moist mucous membranes. No oral ulcerations or bleeding gums noted NECK: supple without lymphadenopathy or JVD. Trachea is central. No cervical or axillary lymphadenopathy noted. Carotids are 2+ LUNGS: Breath sounds mostly clear to auscultation patient is noted to have bibasal crackles at the extreme bases, marked diminished breath sounds both bases and few bilateral wheezing. CHEST: Palpation of the chest wall shows no significant chest wall tenderness or abnormalities. HEART: [place] [employer], No PSH, 2/6 TERRIE aortic area, 1/6 johnson systolic murmur mitral area , no rubs or gallops. ABDOMEN: Soft, no significant tenderness appreciated, normoactive bowel sounds. No guarding, no rebound. No rigidity noted . No masses appreciated. EXTREMITIES: Pedal pulses are 1-2+, no calf tenderness noted, 1+ pedal edema noted. No clubbing or cyanosis. NEUROLOGICAL: The patient cannot participate in the neurological exam but no facial asymmetry noted. Extremities slightly hypotonic PSYCH: This cannot be evaluated. Patient cannot participate. SKIN: No significant ecchymosis, rash, or signs of pruritus noted. MUSCULOSKELETAL EXAM: No significant joint swelling noted. Patient cannot participate in musculoskeletal exam Results Laboratory Results: 07/13/17 06:30 07/13/17 06:30 07/12/17 07/13/17 07/13/17 23:40 01:55 04:45 WBC RBC Hgb Hct MCV MCH MCHC RDW Plt Count Seg Neutrophils % Lymphocytes % Monocytes % Eosinophils % Basophils % Absolute Neutrophils Absolute Lymphocytes Absolute Monocytes Absolute Eosinophils Absolute Basophils Carbonic Acid 2.09 H 1.51 H HCO3/H2CO3 Ratio 15:1 18:1 ABG pH 7.28 L 7.37 ABG pCO2 69.4 H* 50.3 H ABG pO2 103.6 H 70.7 L ABG HCO3 32.0 H 28.6 H ABG O2 Saturation 96.9 93.6 L ABG Base Excess 4.0 2.8 FiO2 40% 35% Sodium Potassium Chloride Carbon Dioxide Anion Gap BUN Creatinine Est GFR ( Amer) Est GFR (Non-Af Amer) Glucose Calcium Total Bilirubin AST ALT Alkaline Phosphatase Total Protein Albumin Urine Color YELLOW Urine Appearance CLOUDY Urine pH 5.0 Ur Specific [place] 1.023 Urine Protein 30 H Urine Glucose (UA) 50 H Urine Ketones NEGATIVE Urine Blood SMALL H Urine Nitrite NEGATIVE Ur Leukocyte Esterase NEGATIVE Urine WBC (Auto) 1 Urine RBC (Auto) 2 07/13/17 07/13/17 06:30 06:30 WBC 23.0 H RBC 3.43 L Hgb 8.7 L D Hct 28.0 L MCV 82 MCH 25.3 L MCHC 30.9 L RDW 20.8 H Plt Count 244 Seg Neutrophils % Not Reportable Lymphocytes % Not Reportable Monocytes % Not Reportable Eosinophils % Not Reportable Basophils % Not Reportable Absolute Neutrophils Not Reportable Absolute Lymphocytes Not Reportable Absolute Monocytes Not Reportable Absolute Eosinophils Not Reportable Absolute Basophils Not Reportable Carbonic Acid HCO3/H2CO3 Ratio ABG pH ABG pCO2 ABG pO2 ABG HCO3 ABG O2 Saturation ABG Base Excess FiO2 Sodium 142.0 Potassium 4.3 Chloride 108 H Carbon Dioxide 29 Anion Gap 5 BUN 14 Creatinine 0.57 Est GFR ( Amer) > 60 Est GFR (Non-Af Amer) > 60 Glucose 218 H Calcium 8.0 L Total Bilirubin 0.4 AST 25 ALT 40 Alkaline Phosphatase 51 Total Protein 4.4 L Albumin 2.4 L Urine Color Urine Appearance Urine pH Ur Specific [place] Urine Protein Urine Glucose (UA) Urine Ketones Urine Blood Urine Nitrite Ur Leukocyte Esterase Urine WBC (Auto) Urine RBC (Auto) 07/13/17 07/13/17 00:19 06:30 Troponin I 0.140 0.097 EKG Comments: Telemetry strips shows intermittent atrial flutter fibrillation with rapid ventricular response. Impressions: Chest X-Ray 07/13/17 06:00 IMPRESSION: 1. Stable appearance of the chest. Assessment & Plan - Diagnosis (1) Atrial fibrillation and flutter Is this a current diagnosis for this admission?: Yes (2) Febrile illness Is this a current diagnosis for this admission?: Yes (3) Acute and chronic respiratory failure Qualifiers: Respiratory failure complication: hypoxia Qualified Code(s): J96.21 - Acute and chronic respiratory failure with hypoxia (4) COPD exacerbation Is this a current diagnosis for this admission?: Yes (5) DM type 2 (diabetes mellitus, type 2) Qualifiers: Diabetes mellitus complication status: with unspecified complications Diabetes mellitus custodial insulin use: unspecified custodial insulin use status Qualified Code(s): E11.8 - Type 2 diabetes mellitus with unspecified complications Is this a current diagnosis for this admission?: Yes (6) Coronary artery disease Qualifiers: Coronary Disease-Associated Artery/Lesion type: [place] artery Associated angina: without angina Is this a current diagnosis for this admission?: Yes (7) Sepsis Qualifiers: Sepsis type: sepsis due to unspecified organism Qualified Code(s): A41.9 - Sepsis, unspecified organism Is this a current diagnosis for this admission?: Yes (8) Hypotension (arterial) Qualifiers: Hypotension type: unspecified hypotension type Qualified Code(s): I95.9 - Hypotension, unspecified Is this a current diagnosis for this admission?: Yes - Notes Notes: Patient remains critically ill on vasopressors. She is intubated and in being artificially ventilated for respiratory support. That has also been significant drop in her hemoglobin. Part of this could be dilutional but cannot rule out internal bleed. Patient notes suspected to be in septic shock. Troponin I elevation: Troponin I is elevated and most likely related to severe hypoxemia, supply demand mismatch from A. fib with rapid ventricular response, hypotension and sepsis. A stat echo is being ordered. Atrial flutter fibrillation: Recommend rate control with Cardizem as patient has severe COPD and emphysema. Could use very selective beta 1 blockers if needed. Recommend also digoxin for rate control. Also recommend chronic anticoagulation if there are no contraindications. Acute on chronic respiratory failure with hypoxemia and also hypercarbia. Review of chart shows that patient has severe emphysema. Recommend pulmonary evaluation and consultation. Patient will also benefit from product distribution specialist consultation. Febrile illness: Patient was noted to have some chills in the ER. Subsequently was noted to have high temperature. Recommend broad-spectrum antibiotics. Sepsis: Feel that patient most likely has sepsis which is also causing hypotension. Hypotension: Most likely related to sepsis. Have ordered a 2D echo to rule out other causes of hypotension. COPD with exacerbation: Continue with aggressive steroids and bronchodilator therapy. Xopenex preferred. Diabetes: Recommend good control but avoid any hypo-or hyperglycemia. Coronary artery disease: Patient is noted to have CAD on chart review. At this point EKG not showing any acute ST-T wave changes. Troponins noted to be high and is probably related to acute respiratory failure with hypoxemia and possibly underlying sepsis. - Time Time with patient: Greater than 35 minutes - Patient has no family member available to discuss CODE STATUS. Believe that because of severe COPD, which is end-stage prognosis is on the poor side. More than 50% of the time spent coordinating care, discussing management plans with involved caregivers. Management plans discussed with involved personnels. Medical decision making was of moderate to high complexity, patient's has multiple comorbidities. Medications reviewed and adjusted accordingly: Yes
[2017-07-13] MEDS: VANCOMYCIN HCL 750 MG in DEXTROSE 5%-WATER 250 ML IV SCH ×2 (10:42→21:19)
[2017-07-13] MEDS: DRONEDARONE HYDROCHLORIDE 400 MG TABLET PO SCH ×2 (11:14→21:19)
[2017-07-13] MEDS ORDERED: CEFEPIME 1 GM/D5W RTU 1 GM/50 ML RTUPB IV ONE (11:15)
[2017-07-13] MEDS: CEFEPIME 1 GM/D5W RTU 1 GM/50 ML RTUPB IV SCH ×2 (11:15→21:20)
[2017-07-13] MEDS: LEVALBUTEROL HCL NEB 1.25 MG/3 ML AMPUL NEB SCH ×3 (11:51→20:54)
[2017-07-13] MEDS ORDERED: RANOLAZINE 500 MG TAB.SR.12H PO ONE (12:00)
--- NOTE | 2017-07-13 12:54 | PDOC CONSULTATION ---
Consultation Consult Date: 07/13/17 Attending physician:: CELESTINA AYALA Consult reason:: Acute/chronic respiratory failure History of Present Illness Admission Date/PCP: 07/12/17 17:55 History of Present Illness: TERE VALERIO is a 56 year old female presents to the hospital with multiple admissions to the hospital for exacerbations of COPD presented to the ED complaining of palpitations and was felt to have found tachycardia as well as shortness of breath which appeared to improve adenosine diltiazem drip however the tachypnea persisted and she was subsequently intubated she also has a history of atrial fib flutter with RVR COPD chronic respiratory failure hypercapnic hypoxic and tobacco abuse Past Medical History Cardiac Medical History: Reports: Atrial Fibrillation, Congestive Heart Failure , Myocardial Infarction, Hypertension Pulmonary Medical History: Reports: Chronic Obstructive Pulmonary Disease (COPD ) - SEEN BY DR. QUINTERO, Pneumonia, Respiratory Failure EENT Medical History: Denies: Ears, Nose Neurological Medical History: Denies: Migraine, Multiple Sclerosis, Seizures Endocrine Medical History: Reports: Diabetes Mellitus Type 2 - 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 Denies: Gestational Diabetes, Obesity Malignancy Medical History: Reports: None GI Medical History: Denies: Cirrhosis, Crohn's Disease, Ulcerative Colitis Musculoskeltal Medical History: Reports: Arthritis Denies: Gout Skin Medical History: Denies: Psoriasis Psychiatric Medical History: Reports: Tobacco Dependency Denies: Depression Traumatic Medical History: Reports: Traumatic Brain Injury Hematology: Reports: Anemia Denies: Sickle Cell Disease Infectious Medical History: Denies: Hepatitis B, Hepatitis C Past Surgical History Past Surgical History: Reports: Cardiac Catheterization, Section Social History Information Source: [facility] Records Lives with: Family Smoking Status: Current Every Day Smoker Cigarettes Packs Per Day: 2 Number of Years Smokin Last Time Smoked: 10 Passive smoke exposure as: Both Frequency of Alcohol Use: None Hx Recreational Drug Use: No Drugs: None Hx Prescription Drug Abuse: No Do you have pets?: No Have you had any respiratory illnesses as a child?: No Have you been exposed to any sick contacts recently?: Yes Have you had any recent respiratory illnesses?: Yes Have you travelled outside of [place] in the past 12 months?: No - Advance Directive Resuscitation Status: Full Code Family History Family History: CAD, COPD, Hypertension Parental Family History Reviewed: Yes Children Family History Reviewed: Yes Sibling(s) Family History Reviewed.: Yes Medication/Allergy Home Medications: Ferrous Sulfate [Feosol 325 mg Tablet] 325 mg PO DAILY 07/12/17 Folic Acid [Folvite 1 mg Tablet] 1 mg PO DAILY 07/12/17 Sertraline HCl [Zoloft] 25 mg PO DAILY 07/12/17 Zolpidem Tartrate [Ambien 5 mg Tablet] 5 mg PO HSP PRN 07/12/17 Allergies/Adverse Reactions: erythromycin base [Erythromycin Base] Allergy (Mild, Verified 06/29/17 07:01) Review of Systems ROS unobtainable: Due to endotracheal tube Physical Exam Vital Signs: Temp Pulse Resp BP Pulse Ox 99.1 F 120 H 16 125/86 H 97 07/13/17 10:00 07/13/17 10:00 07/13/17 10:00 07/13/17 10:00 07/13/17 10:00 Intake & Output 07/12/17 07/13/17 07/14/17 06:59 06:59 06:59 Intake Total 2378 Output Total 375 235 Balance 2002 Weight 65.2 kg General appearance: PRESENT: no acute distress, disheveled, thin. ABSENT: cooperative, mild distress, morbidly obese, obese, severe distress Head exam: PRESENT: atraumatic, normocephalic Eye exam: PRESENT: conjunctiva pale. ABSENT: conjunctival injection, conjunctiva pink, nystagmus, periorbital swelling, scleral icterus Mouth exam: PRESENT: dry mucosa, neck supple, tongue midline, other - ET tubbe. ABSENT: laceration, moist Neck exam: ABSENT: carotid bruit, JVD, lymphadenopathy, thyromegaly, tracheal deviation, tracheostomy Respiratory exam: PRESENT: crackles, decreased breath sounds, prolonged expiratory phas, rhonchi, symmetrical, unlabored, wheezes. ABSENT: accessory muscle use, chest wall tenderness, clear to auscultation martínez, rales, retraction , stridor, tachypnea Cardiovascular exam: PRESENT: RRR, +S1, +S2 Pulses: PRESENT: normal radial pulses GI/Abdominal exam: PRESENT: diminished bowel sounds, tenderness Extremities exam: ABSENT: calf tenderness, clubbing, joint swelling Musculoskeletal exam: ABSENT: deformity, dislocation Neurological exam: ABSENT: alert, altered Skin exam: PRESENT: dry, warm Results Laboratory Results: 07/13/17 06:30 07/13/17 06:30 07/12/17 07/13/17 07/13/17 23:40 01:55 04:45 WBC RBC Hgb Hct MCV MCH MCHC RDW Plt Count Seg Neutrophils % Lymphocytes % Monocytes % Eosinophils % Basophils % Absolute Neutrophils Absolute Lymphocytes Absolute Monocytes Absolute Eosinophils Absolute Basophils Carbonic Acid 2.09 H 1.51 H HCO3/H2CO3 Ratio 15:1 18:1 ABG pH 7.28 L 7.37 ABG pCO2 69.4 H* 50.3 H ABG pO2 103.6 H 70.7 L ABG HCO3 32.0 H 28.6 H ABG O2 Saturation 96.9 93.6 L ABG Base Excess 4.0 2.8 FiO2 40% 35% Sodium Potassium Chloride Carbon Dioxide Anion Gap BUN Creatinine Est GFR ( Amer) Est GFR (Non-Af Amer) Glucose Calcium Total Bilirubin AST ALT Alkaline Phosphatase Total Protein Albumin Urine Color YELLOW Urine Appearance CLOUDY Urine pH 5.0 Ur Specific [place] 1.023 Urine Protein 30 H Urine Glucose (UA) 50 H Urine Ketones NEGATIVE Urine Blood SMALL H Urine Nitrite NEGATIVE Ur Leukocyte Esterase NEGATIVE Urine WBC (Auto) 1 Urine RBC (Auto) 2 07/13/17 07/13/17 06:30 06:30 WBC 23.0 H RBC 3.43 L Hgb 8.7 L D Hct 28.0 L MCV 82 MCH 25.3 L MCHC 30.9 L RDW 20.8 H Plt Count 244 Seg Neutrophils % Not Reportable Lymphocytes % Not Reportable Monocytes % Not Reportable Eosinophils % Not Reportable Basophils % Not Reportable Absolute Neutrophils Not Reportable Absolute Lymphocytes Not Reportable Absolute Monocytes Not Reportable Absolute Eosinophils Not Reportable Absolute Basophils Not Reportable Carbonic Acid HCO3/H2CO3 Ratio ABG pH ABG pCO2 ABG pO2 ABG HCO3 ABG O2 Saturation ABG Base Excess FiO2 Sodium 142.0 Potassium 4.3 Chloride 108 H Carbon Dioxide 29 Anion Gap 5 BUN 14 Creatinine 0.57 Est GFR ( Amer) > 60 Est GFR (Non-Af Amer) > 60 Glucose 218 H Calcium 8.0 L Total Bilirubin 0.4 AST 25 ALT 40 Alkaline Phosphatase 51 Total Protein 4.4 L Albumin 2.4 L Urine Color Urine Appearance Urine pH Ur Specific [place] Urine Protein Urine Glucose (UA) Urine Ketones Urine Blood Urine Nitrite Ur Leukocyte Esterase Urine WBC (Auto) Urine RBC (Auto) 07/13/17 07/13/17 00:19 06:30 Troponin I 0.140 0.097 Impressions: Chest X-Ray 07/13/17 06:00 IMPRESSION: 1. Stable appearance of the chest. Assessment & Plan - Diagnosis (1) COPD exacerbation Is this a current diagnosis for this admission?: Yes Plan: Generic Name Dose Route Start Last Admin Trade Name Freq PRN Reason Stop Dose Admin Methylprednisolone Sodium Succinate 80 mg 07/13/17 00:00 07/13/17 06:23 Solu-Medrol Inj/Pf 125 Mg/2 Ml Sdv IV 08/12/17 00:00 80 mg Q6 ANA Levalbuterol HCl 1.25 mg 07/13/17 12:00 07/13/17 11:51 Xopenex Neb 1.25 Mg/3 Ml Ampul NEB 08/12/17 11:59 1.25 mg RTQ4 ANA (2) Supraventricular tachycardia Is this a current diagnosis for this admission?: Yes Plan: As per cardiology (3) Acute on chronic respiratory failure with hypoxia and hypercapnia Is this a current diagnosis for this admission?: Yes Plan: Support as needed try not to exceed baseline PCO2 - Time Total Critical Time (Minutes): 55
[2017-07-13] MEDS ORDERED: BUDESONIDE NEB 0.5 MG/2 ML AMPUL NEB PRN (13:35)
--- NOTE | 2017-07-13 18:47 | PDOC PROGRESS REPORT ---
Subjective Progress Note for:: 07/13/17 Subjective:: No new issues. Reason For Visit: ACUTE ON CHRONIC RESPIRATORY FAILURE SECONDARY TO Physical Exam Vital Signs: Temp Pulse Resp BP Pulse Ox 99.9 F 92 27 H 100/58 L 99 07/13/17 17:22 07/13/17 16:00 07/13/17 16:00 07/13/17 17:22 07/13/17 17:22 Intake & Output 07/12/17 07/13/17 07/14/17 06:59 06:59 06:59 Intake Total 2378 Output Total 375 720 Balance 2002 Weight 65.2 kg General appearance: PRESENT: other - sedated and intubated. Head exam: PRESENT: atraumatic, normocephalic Eye exam: PRESENT: other - sedated Ear exam: PRESENT: normal external ear exam Mouth exam: PRESENT: moist, tongue midline, other - ETT in place Neck exam: ABSENT: carotid bruit, JVD, lymphadenopathy, thyromegaly Respiratory exam: PRESENT: other - + wheezing, ETT, fair chest rise Cardiovascular exam: PRESENT: irregular rhythm. ABSENT: diastolic murmur, rubs , systolic murmur Pulses: PRESENT: normal [place] pedis pul Vascular exam: PRESENT: normal capillary refill GI/Abdominal exam: PRESENT: normal bowel sounds, soft. ABSENT: distended, guarding, mass, organolmegaly, rebound, tenderness Rectal exam: PRESENT: deferred Extremities exam: ABSENT: calf tenderness, clubbing, pedal edema Neurological exam: PRESENT: other - sedated Psychiatric exam: PRESENT: other - sedated Skin exam: PRESENT: dry, intact, warm. ABSENT: cyanosis, rash Results Laboratory Results: 07/13/17 06:30 07/13/17 06:30 07/12/17 07/13/17 07/13/17 23:40 01:55 04:45 WBC RBC Hgb Hct MCV MCH MCHC RDW Plt Count Seg Neutrophils % Lymphocytes % Monocytes % Eosinophils % Basophils % Absolute Neutrophils Absolute Lymphocytes Absolute Monocytes Absolute Eosinophils Absolute Basophils Carbonic Acid 2.09 H 1.51 H HCO3/H2CO3 Ratio 15:1 18:1 ABG pH 7.28 L 7.37 ABG pCO2 69.4 H* 50.3 H ABG pO2 103.6 H 70.7 L ABG HCO3 32.0 H 28.6 H ABG O2 Saturation 96.9 93.6 L ABG Base Excess 4.0 2.8 FiO2 40% 35% Sodium Potassium Chloride Carbon Dioxide Anion Gap BUN Creatinine Est GFR ( Amer) Est GFR (Non-Af Amer) Glucose Calcium Total Bilirubin AST ALT Alkaline Phosphatase Total Protein Albumin Urine Color YELLOW Urine Appearance CLOUDY Urine pH 5.0 Ur Specific [place] 1.023 Urine Protein 30 H Urine Glucose (UA) 50 H Urine Ketones NEGATIVE Urine Blood SMALL H Urine Nitrite NEGATIVE Ur Leukocyte Esterase NEGATIVE Urine WBC (Auto) 1 Urine RBC (Auto) 2 07/13/17 07/13/17 06:30 06:30 WBC 23.0 H RBC 3.43 L Hgb 8.7 L D Hct 28.0 L MCV 82 MCH 25.3 L MCHC 30.9 L RDW 20.8 H Plt Count 244 Seg Neutrophils % Not Reportable Lymphocytes % Not Reportable Monocytes % Not Reportable Eosinophils % Not Reportable Basophils % Not Reportable Absolute Neutrophils Not Reportable Absolute Lymphocytes Not Reportable Absolute Monocytes Not Reportable Absolute Eosinophils Not Reportable Absolute Basophils Not Reportable Carbonic Acid HCO3/H2CO3 Ratio ABG pH ABG pCO2 ABG pO2 ABG HCO3 ABG O2 Saturation ABG Base Excess FiO2 Sodium 142.0 Potassium 4.3 Chloride 108 H Carbon Dioxide 29 Anion Gap 5 BUN 14 Creatinine 0.57 Est GFR ( Amer) > 60 Est GFR (Non-Af Amer) > 60 Glucose 218 H Calcium 8.0 L Total Bilirubin 0.4 AST 25 ALT 40 Alkaline Phosphatase 51 Total Protein 4.4 L Albumin 2.4 L Urine Color Urine Appearance Urine pH Ur Specific [place] Urine Protein Urine Glucose (UA) Urine Ketones Urine Blood Urine Nitrite Ur Leukocyte Esterase Urine WBC (Auto) Urine RBC (Auto) 07/13/17 07/13/17 07/13/17 00:19 06:30 12:23 Troponin I 0.140 0.097 0.073 Impressions: Chest X-Ray 07/13/17 06:00 IMPRESSION: 1. Stable appearance of the chest. Assessment & Plan - Diagnosis (1) Acute and chronic respiratory failure with hypoxia Is this a current diagnosis for this admission?: Yes Plan: Secondary to acute exacerbation of COPD: We continue steroids, breathing treatments, cefepime, vancomycin. Dr. Talbot has been consulted (2) COPD exacerbation Is this a current diagnosis for this admission?: Yes Plan: We continue steroids, breathing treatments, and antibiotics. Dr. Talbot has been consulted (3) Leukocytosis Is this a current diagnosis for this admission?: Yes Plan: Will continue to monitor. (4) DM type 2 (diabetes mellitus, type 2) Qualifiers: Diabetes mellitus complication status: with unspecified complications Diabetes mellitus nursing home insulin use: unspecified rn long term care insulin use status Qualified Code(s): E11.8 - Type 2 diabetes mellitus with unspecified complications Is this a current diagnosis for this admission?: Yes Plan: We continue sliding scale insulin (5) Elevated LFTs Is this a current diagnosis for this admission?: Yes Plan: We will monitor (6) Atrial flutter Qualifiers: Is this a current diagnosis for this admission?: Yes Plan: We continue Cardizem drip. Patient was given dig. Cardiology consulted (7) Tobacco abuse counseling Is this a current diagnosis for this admission?: Yes Plan: We will encourage discontinuation of tobacco products. (8) Tachycardia Is this a current diagnosis for this admission?: Yes Plan: Most likely atrial flutter: We will continue diltiazem and dig. Cardiology has been consulted. (9) SIRS (systemic inflammatory response syndrome) Is this a current diagnosis for this admission?: Yes Plan: Secondary to heart rate, respiratory rate, respiratory failure, and elevated white blood cell count. Blood culture, urine culture, sputum culture pending (10) DVT prophylaxis Is this a current diagnosis for this admission?: Yes Plan: Heparin - Time Time Spent with patient: 25-34 minutes
--- NOTE | 2017-07-13 19:27 | XCELERA REPORT ---
[address] [address] Transthoracic Echocardiogram Report Name: TERE VALERIO Age: 56 yrs Gender: Female : 1960 Patient Status: Inpatient Patient Location: ICU^[facility]^A Study Date: 07/13/2017 09:11 AM Height: 62 in Weight: 140 lb BSA: 1.6 m2 Procedure: A complete two-dimensional transthoracic echocardiogram was performed (2D, M-mode, spectral and color flow Doppler). The study was technically difficult with many images being suboptimal in quality. Reason For Study: resp distress, positive troponin I Ordering Physician: KELBY LANDEROS Performed By: Jazmin Greenfield Interpretation Summary The study was technically difficult with many images being suboptimal in quality. The left ventricular ejection fraction is normal. There is normal left ventricular wall thickness. The left ventricle is grossly normal size. Regional wall motion abnormalities cannot be excluded due to limited visualization. The right ventricular systolic function is normal. The right ventricle is grossly normal size. The right atrium is normal in size The left atrial size is normal. There is a trace amount of mitral regurgitation There is no mitral valve stenosis. No aortic regurgitation is present. There is no aortic valve stenosis There is no tricuspid stenosis. No tricuspid regurgitation. The aortic root is not well visualized. The inferior vena cava appeared normal and decreased > 50% with respiration (RAP 5-10 mmHg) Minimal pericardial effusion. MMode/2D Measurements & Calculations RVDd: 2.2 cm LVIDd: 4.4 cm FS: 34.1 % Ao root diam: 2.4 cm IVSd: 0.84 cm LVIDs: 2.9 cm EDV(Teich): 88.8 ml LVPWd: 0.83 cmESV(Teich): 32.6 ml Ao root area: 4.5 cm2 EF(Teich): 63.3 % LA dimension: 3.5 cm LVOT diam: 2.2 cm LVOT area: 3.6 cm2 Doppler Measurements & Calculations MV E max deion: MV P1/2t max deion: Ao V2 max: LV V1 max P.8 cm/sec 91.3 cm/sec 172.0 cm/sec 4.8 mmHg MV P1/2t: 48.5 msec Ao max PG: LV V1 max: MVA(P1/2t): 4.5 cm2 11.8 mmHg 109.6 cm/sec MV dec slope: GONZALES(V,D): 2.3 cm2 551.7 cm/sec2 PA V2 max: 109.1 cm/sec PA max P.8 mmHg Left Ventricle The left ventricle is grossly normal size. There is normal left ventricular wall thickness. The left ventricular ejection fraction is normal. LV diastolic function could not be adequately assessed due to atrial fibrilation. Regional wall motion abnormalities cannot be excluded due to limited visualization. Right Ventricle The right ventricle is grossly normal size. There is normal right ventricular wall thickness. The right ventricular systolic function is normal. Atria The right atrium is normal in size. The left atrial size is normal. Interarterial septum not well visualized and not well dopplered. Cannot comment on ASD/PFO presence. Mitral Valve The mitral valve is not well visualized. There is no mitral valve stenosis. There is a trace amount of mitral regurgitation. Aortic Valve The aortic valve is not well visualized secondary to technical limitations. There is no aortic valve stenosis. No aortic regurgitation is present. Tricuspid Valve The tricuspid valve is not well visualized secondary to technical limitations. There is no tricuspid stenosis. No tricuspid regurgitation. Pulmonic Valve The pulmonic valve is not well visualized. Great Vessels The aortic root is not well visualized. The inferior vena cava appeared normal and decreased > 50% with respiration (RAP 5-10 mmHg). Effusions Minimal pericardial effusion. : KELBY LANDEROS > Kelby Landeros
[2017-07-13] MEDS ORDERED: DEXTROSE 5%-WATER 250 ML with PHENYLEPHRINE HCL 40 MG IV PRN ×2 (20:26)
[2017-07-13] MEDS: RANOLAZINE 500 MG TAB.SR.12H PO SCH (20:46)
[2017-07-13] MEDS ORDERED: PROPOFOL 100 ML IV ONE (20:51)
[2017-07-13] MEDS: BUDESONIDE NEB 0.5 MG/2 ML AMPUL NEB SCH (20:54)
[2017-07-13] MEDS: PROPOFOL 100 ML IV PRN (21:19)
[2017-07-14] MEDS: LEVALBUTEROL HCL NEB 1.25 MG/3 ML AMPUL NEB SCH ×6 (00:25→20:37)
[2017-07-14] MEDS: METHYLPREDNISOLONE INJ 125 MG/2 ML SDV IV SCH ×5 (00:27→23:23)
[2017-07-14] MEDS: MORPHINE SULFATE 10 MG/ML INJ IV PRN (03:37)
[2017-07-14] MEDS: HEPARIN SOD (PORCINE) 5,000 UNIT/ML 1 ML SYRINGE SUBCUT SCH ×2 (06:18→22:23)
[2017-07-14 06:40] LABS: ARTERIAL BLOOD BASE EXCESS 1.3 mmol/L; ARTERIAL BLOOD H2CO3 1.62 mmol/L (1.05-1.35); ARTERIAL BLOOD HCO3 27.7 mmol/L (20-26); ARTERIAL BLOOD PCO2 53.8 mmHg (35-45); ARTERIAL BLOOD PH 7.33 (7.35-7.45); ARTERIAL BLOOD PO2 48.8 mmHg (80-100); ARTERIAL BLOOD TOTAL CO2 29.3 mmol/L (21-25)
[2017-07-14 06:41] LABS: ARTERIAL BLOOD FIO2 40%
--- NOTE | 2017-07-14 06:52 | RADIOLOGY REPORT (SQ) ---
EXAM DESCRIPTION: CHEST SINGLE VIEW CLINICAL HISTORY: Respiratory Failure COMPARISON: 07/13/2017 FINDINGS: Single frontal view of the chest. Endotracheal tube with tip below the clavicles. NG tube with tip proceeding below the diaphragm. Atherosclerotic calcification of the aortic arch. Heart is not enlarged. No consolidation, pneumothorax, or pleural effusion. No displaced rib fractures identified. Upper abdominal soft tissues are unremarkable. IMPRESSION: 1. Stable appearance of the chest. Electronically signed by: Luis Eduardo Evangelista 07/14/2017 5:50 AM
[2017-07-14] MEDS: DEXTROSE 5%-WATER 250 ML with VASOPRESSIN 100 UNIT IV PRN ×2 (08:05)
[2017-07-14] MEDS: BUDESONIDE NEB 0.5 MG/2 ML AMPUL NEB SCH ×2 (08:41→20:37)
--- NOTE | 2017-07-14 09:23 | PDOC PROGRESS REPORT ---
Subjective Progress Note for:: 07/14/17 Subjective:: Patient noted to be stable since yesterday. She remains in atrial flutter but heart rate is well controlled. She remains on vasopressin drip. She is getting all supportive care. Hemoglobin is noted to have significant drop. Partly related to hemodilution but would need to rule out any ongoing bleed before deciding about any chronic anticoagulation. Have ordered a complete blood count. Have also ordered a chemistry panel. Patient remains intubated, sedated, patient however looks comfortable and in acute distress. Medications reviewed. Reason For Visit: ACUTE ON CHRONIC RESPIRATORY FAILURE SECONDARY TO Physical Exam Vital Signs: Temp Pulse Resp BP Pulse Ox 97.2 F 73 16 89/65 L 94 07/14/17 06:52 07/14/17 04:55 07/14/17 04:55 07/14/17 06:52 07/14/17 06:52 Intake & Output 07/13/17 07/14/17 07/15/17 06:59 06:59 06:59 Intake Total 2378 2949 Output Total 375 1930 Balance 2002 101 Weight 65.2 kg 67.8 kg Exam: GENERAL: well-nourished and in no acute distress. Patient is intubated and sedated. Orientation cannot be checked HEAD: Atraumatic, normocephalic. EYES: Pupils equal round and reactive to light, extraocular movements could not be checked, sclera anicteric, conjunctiva are normal. ENT: TMs normal, nares patent, oropharynx clear without exudates. Moist mucous membranes. No oral ulcerations or bleeding gums noted NECK: supple without lymphadenopathy or JVD. Trachea is central. No cervical or axillary lymphadenopathy noted. Carotids are 2+ LUNGS: Breath sounds mostly clear to auscultation patient is noted to have bibasal crackles at the extreme bases CHEST: Palpation of the chest wall shows no significant chest wall tenderness or abnormalities. HEART: [place] [employer], No PSH, 2/6 TERRIE aortic area, 1/6 johnson systolic murmur mitral area , no rubs or gallops. ABDOMEN: Soft, no significant tenderness appreciated, normoactive bowel sounds. No guarding, no rebound. No rigidity noted . No masses appreciated. EXTREMITIES: Pedal pulses are 1-2+, no calf tenderness noted, 1+ pedal edema noted. No clubbing or cyanosis. NEUROLOGICAL: The patient cannot participate in the neurological exam but no facial asymmetry noted. Extremities slightly hypotonic PSYCH: This cannot be evaluated. Patient cannot participate. SKIN: No significant ecchymosis, rash, or signs of pruritus noted. MUSCULOSKELETAL EXAM: No significant joint swelling noted. Patient cannot participate in musculoskeletal exam Results Laboratory Results: 07/13/17 06:30 07/13/17 06:30 07/14/17 06:15 Carbonic Acid 1.62 H HCO3/H2CO3 Ratio 17:1 ABG pH 7.33 L ABG pCO2 53.8 H ABG pO2 48.8 L ABG HCO3 27.7 H ABG O2 Saturation 81.0 L ABG Base Excess 1.3 FiO2 40% 07/13/17 07/13/17 07/13/17 00:19 06:30 12:23 Troponin I 0.140 0.097 0.073 EKG Comments: Shows atrial flutter fibrillation with controlled ventricular response. Impressions: Chest X-Ray 07/14/17 06:00 IMPRESSION: 1. Stable appearance of the chest. Assessment & Plan - Diagnosis (1) Atrial fibrillation and flutter Is this a current diagnosis for this admission?: Yes (2) Febrile illness Is this a current diagnosis for this admission?: Yes (3) Acute and chronic respiratory failure Qualifiers: Respiratory failure complication: hypoxia Qualified Code(s): J96.21 - Acute and chronic respiratory failure with hypoxia (4) COPD exacerbation Is this a current diagnosis for this admission?: Yes (5) DM type 2 (diabetes mellitus, type 2) Qualifiers: Diabetes mellitus complication status: with unspecified complications Diabetes mellitus terminal operator insulin use: unspecified fci insulin use status Qualified Code(s): E11.8 - Type 2 diabetes mellitus with unspecified complications Is this a current diagnosis for this admission?: Yes (6) Coronary artery disease Qualifiers: Coronary Disease-Associated Artery/Lesion type: [place] artery Associated angina: without angina Is this a current diagnosis for this admission?: Yes (7) Sepsis Qualifiers: Sepsis type: sepsis due to unspecified organism Qualified Code(s): A41.9 - Sepsis, unspecified organism Is this a current diagnosis for this admission?: Yes (8) Hypotension (arterial) Qualifiers: Hypotension type: unspecified hypotension type Qualified Code(s): I95.9 - Hypotension, unspecified Is this a current diagnosis for this admission?: Yes - Notes Notes: Have ordered complete blood count and chemistry panel. Have written regular dose of digoxin at 0.125 mg p.o. daily. Troponin I elevation: Troponin I is elevated and most likely related to severe hypoxemia, supply demand mismatch from A. fib with rapid ventricular response, hypotension and sepsis. A stat echo is being ordered. Atrial flutter fibrillation: Recommend rate control with Cardizem as patient has severe COPD and emphysema. Could use very selective beta 1 blockers if needed. Recommend also digoxin for rate control. Patient has low chads score of either 1 or 2. Patient is noted to be diabetic. Currently patient is anemic and had drop in hemoglobin. Decision regarding chronic anticoagulation is being deferred for the time being. Continue with DVT prophylaxis. Acute on chronic respiratory failure with hypoxemia and also hypercarbia. Review of chart shows that patient has severe emphysema. Patient seen by manager house. Febrile illness: Patient was noted to have some chills in the ER. Subsequently was noted to have high temperature. Continue broad-spectrum antibiotics. Sepsis: Feel that patient most likely has sepsis which is also causing hypotension. Patient now on lower dose of vasopressin. Hypotension: Most likely related to sepsis. 2D echo was technically difficult but shows well-preserved LV and RV EF. No significant valvular stenosis noted.. COPD with exacerbation: Continue with aggressive steroids and bronchodilator therapy. Xopenex preferred. Diabetes: Recommend good control but avoid any hypo-or hyperglycemia. Coronary artery disease: Patient is noted to have CAD on chart review. At this point EKG not showing any acute ST-T wave changes. Troponins noted to be high and is probably related to acute respiratory failure with hypoxemia and possibly underlying sepsis. - Time Time with patient: Greater than 35 minutes - CODE STATUS was discussed, patient remains full code. Surrogate decision-maker unchanged. Multiple medical problems were addressed. More than 50% of the time spent coordinating care, discussing management plans with involved caregivers. Management plans discussed with involved personnels. Medical decision making was of high complexity, patient's has multiple comorbidities. Medications reviewed and adjusted accordingly: Yes
[2017-07-14] MEDS: CEFEPIME 1 GM/D5W RTU 1 GM/50 ML RTUPB IV SCH ×2 (09:36→22:23)
[2017-07-14] MEDS: VANCOMYCIN HCL 750 MG in DEXTROSE 5%-WATER 250 ML IV SCH ×2 (09:36→22:21)
[2017-07-14 09:47] LABS: HEMATOCRIT 25.7 % (36.0-47.0); HEMOGLOBIN 8.1 g/dL (12.0-15.5); MEAN CORPUSCULAR HEMOGLOBIN 25.5 pg (27.0-33.4); MEAN CORPUSCULAR HGB CONC 31.7 g/dL (32.0-36.0); MEAN CORPUSCULAR VOLUME 81 fl (80-97); PLATELET COUNT 223 10^3/uL (150-450); RED BLOOD COUNT 3.19 10^6/uL (3.72-5.28); RED CELL DISTRIBUTION WIDTH 20.4 % (11.5-14.0); WHITE BLOOD COUNT 18.9 10^3/uL (4.0-10.5)
[2017-07-14] MEDS: DIGOXIN 0.125 MG TABLET PO SCH (09:53)
[2017-07-14] MEDS: RANOLAZINE 500 MG TAB.SR.12H PO SCH ×2 (09:53→17:20)
[2017-07-14] MEDS: DRONEDARONE HYDROCHLORIDE 400 MG TABLET PO SCH ×2 (09:53→22:24)
[2017-07-14 10:05] LABS: ALANINE AMINOTRANSFERASE 40 U/L (9-52); ALBUMIN 2.3 g/dL (3.5-5.0); ALKALINE PHOSPHATASE 55 U/L (38-126); ANION GAP 5 (5-19); ASPARTATE AMINO TRANSFERASE 21 U/L (14-36); BILIRUBIN,DIRECT 0.1 mg/dL (0.0-0.4); BILIRUBIN,TOTAL 0.2 mg/dL (0.2-1.3); BLOOD UREA NITROGEN 16 mg/dL (7-20); CALCIUM 9.2 mg/dL (8.4-10.2); CARBON DIOXIDE 28 mmol/L (22-30); CHLORIDE 107 mmol/L (98-107); MAGNESIUM 2.1 mg/dL (1.6-2.3); POTASSIUM 4.5 mmol/L (3.6-5.0); SODIUM 140.3 mmol/L (137-145); TOTAL PROTEIN 4.5 g/dL (6.3-8.2)
--- NOTE | 2017-07-14 10:16 | PDOC PROGRESS REPORT ---
Subjective Progress Note for:: 07/14/17 Subjective:: Nursing states that patient has been pretty stable. Patient is requiring vasopressin due to sedation medications i.e. propofol. Patient's diltiazem was stopped this morning per Nurse due to good rate control. Reason For Visit: ACUTE ON CHRONIC RESPIRATORY FAILURE SECONDARY TO Physical Exam Vital Signs: Temp Pulse Resp BP Pulse Ox 97.2 F 110 H 28 H 100/54 L 93 07/14/17 06:52 07/14/17 10:00 07/14/17 10:00 07/14/17 10:00 07/14/17 10:00 Intake & Output 07/13/17 07/14/17 07/15/17 06:59 06:59 06:59 Intake Total 2378 2949 Output Total 375 1930 195 Balance 2002 1019 -195 Weight 65.2 kg 67.8 kg General appearance: PRESENT: other - Sedated Head exam: PRESENT: atraumatic, normocephalic Eye exam: PRESENT: other - Sedated eyes closed. ABSENT: scleral icterus Ear exam: PRESENT: normal external ear exam Mouth exam: PRESENT: moist, tongue midline, other - ET tube in place Neck exam: ABSENT: carotid bruit, JVD, lymphadenopathy, thyromegaly Respiratory exam: PRESENT: other - Positive for wheezing heard in all lung spaces diminished breath sounds at bases fair air movement heard in upper lobes anteriorly Cardiovascular exam: PRESENT: other - Irregular regular, no murmurs appreciated no lower extremity edema appreciated Pulses: PRESENT: normal dorsalis pedis pul Vascular exam: PRESENT: normal capillary refill GI/Abdominal exam: PRESENT: normal bowel sounds, soft. ABSENT: distended, guarding, mass, organolmegaly, rebound, tenderness Rectal exam: PRESENT: deferred Extremities exam: PRESENT: full ROM. ABSENT: calf tenderness, clubbing, pedal edema Neurological exam: PRESENT: other - The dated Psychiatric exam: PRESENT: other - Sedated Focused psych exam: PRESENT: other - Sedated Skin exam: PRESENT: dry, intact, warm. ABSENT: cyanosis, rash Results Laboratory Results: 07/14/17 09:23 07/14/17 07/14/17 06:15 09:23 WBC 18.9 H RBC 3.19 L Hgb 8.1 L Hct 25.7 L MCV 81 MCH 25.5 L MCHC 31.7 L RDW 20.4 H Plt Count 223 Seg Neutrophils % Not Reportable Lymphocytes % Not Reportable Monocytes % Not Reportable Eosinophils % Not Reportable Basophils % Not Reportable Absolute Neutrophils Not Reportable Absolute Lymphocytes Not Reportable Absolute Monocytes Not Reportable Absolute Eosinophils Not Reportable Absolute Basophils Not Reportable Carbonic Acid 1.62 H HCO3/H2CO3 Ratio 17:1 ABG pH 7.33 L ABG pCO2 53.8 H ABG pO2 48.8 L ABG HCO3 27.7 H ABG O2 Saturation 81.0 L ABG Base Excess 1.3 FiO2 40% 07/13/17 07/13/17 07/13/17 00:19 06:30 12:23 Troponin I 0.140 0.097 0.073 Impressions: Chest X-Ray 07/14/17 06:00 IMPRESSION: 1. Stable appearance of the chest. Assessment & Plan - Diagnosis (1) Acute and chronic respiratory failure with hypoxia Is this a current diagnosis for this admission?: Yes Plan: Secondary to acute exacerbation of COPD in setting of end-stage COPD: We continue steroids, breathing treatments, cefepime, vancomycin. Dr. Talbot has been consulted. Will check CTA of chest to evaluate for PE. (2) COPD exacerbation Is this a current diagnosis for this admission?: Yes Plan: We continue steroids, breathing treatments, and antibiotics. Dr. Talbot has been consulted (3) Leukocytosis Is this a current diagnosis for this admission?: Yes Plan: Will continue to monitor. White count trending down. Will obtain CT of chest to evaluate for possible infiltrate. However feel that patient's white count is most likely a combination of stress response and prior steroid administration. Patient has been afebrile. Reason for patient's hypotension is related to medication. Will empirically continue antibiotics. (4) DM type 2 (diabetes mellitus, type 2) Qualifiers: Diabetes mellitus complication status: with unspecified complications Diabetes mellitus detention insulin use: unspecified moth exterminator insulin use status Qualified Code(s): E11.8 - Type 2 diabetes mellitus with unspecified complications Is this a current diagnosis for this admission?: Yes Plan: We continue sliding scale insulin (5) Elevated LFTs Is this a current diagnosis for this admission?: Yes Plan: CMP pending for this morning. (6) Atrial flutter Qualifiers: Is this a current diagnosis for this admission?: Yes Plan: Cardiology to adjust diltiazem and dig dosing. Will check CT to evaluate for PE. (7) Tobacco abuse counseling Is this a current diagnosis for this admission?: Yes (8) Tachycardia Is this a current diagnosis for this admission?: Yes Plan: Most likely atrial flutter: We will continue diltiazem and dig. Cardiology has been consulted. (9) SIRS (systemic inflammatory response syndrome) Is this a current diagnosis for this admission?: Yes Plan: Secondary to heart rate, respiratory rate, respiratory failure, and elevated white blood cell count. Currently no source of infection identified. Patient' s presentation could be a combination of respiratory distress in setting of tachycardia arrhythmia and a person recently discharged from hospital had received steroids. (10) Anemia Qualifiers: Anemia type: unspecified type Qualified Code(s): D64.9 - Anemia, unspecified Is this a current diagnosis for this admission?: Yes Plan: Appears to be consistent with iron deficiency anemia. Will Hemoccult stools. She is currently on heparin for DVT prophylaxis. Will continue heparin however if hemoglobin continues to trend down will discontinue. (11) Hypotension (arterial) Qualifiers: Hypotension type: unspecified hypotension type Qualified Code(s): I95.9 - Hypotension, unspecified Is this a current diagnosis for this admission?: Yes Plan: Secondary to medications i.e. propofol and diltiazem: Supportive care will continue to monitor. However no source to support that patient is experiencing septic shock from infectious etiology (12) DVT prophylaxis Is this a current diagnosis for this admission?: Yes Plan: Heparin - Time Time Spent with patient: 25-34 minutes
[2017-07-14 10:17] LABS: GLUCOSE 423 mg/dL (75-110)
[2017-07-14 10:28] LABS: ABSOLUTE LYMPHOCYTES# (MANUAL) 0.4 10^3/uL (0.5-4.7); ABSOLUTE MONOCYTES # (MANUAL) 0.2 10^3/uL (0.1-1.4); ABSOLUTE NEUTROPHILS# (MANUAL) 18.3 10^3/uL (1.7-8.2); BASOPHILS % (MANUAL) 0 % (0-2); EOSINOPHILS % (MANUAL) 0 % (0-6); HYPOCHROMASIA 1+; LYMPHOCYTES % (MANUAL) 2 % (13-45); MONOCYTES % (MANUAL) 1 % (3-13); PLATELET COMMENT ADEQUATE; POLYCHROMASIA SLIGHT; ROULEAUX SLIGHT; SEGMENTED NEUTROPHILS % (MAN) 97 % (42-78); TOTAL CELLS COUNTED 100; TOXIC VACUOLATION PRESENT
[2017-07-14 10:32] LABS: ABSOLUTE RETICS # 0.033 10^6/uL (0.028-0.122); RETICULOCYTE COUNT (AUTO) 1.04 % (0.66-2.85)
[2017-07-14 10:34] LABS: IRON(TIBC) 15.7 ug/dL (37-170)
[2017-07-14] MEDS: INSULIN LISPRO 100 UNIT/ML 3 ML VIAL SUBCUT PRN ×2 (11:00→17:22)
--- NOTE | 2017-07-14 13:59 | RADIOLOGY REPORT (SQ) ---
EXAM DESCRIPTION: CTA CHEST COMPLETED DATE/TIME: 07/14/2017 12:41 pm REASON FOR STUDY: Concern for PE, respiratory failure. COMPARISON: Chest x-ray 07/14/2017. CT angiogram chest 06/07/2017. TECHNIQUE: CT scan of the chest performed using helical scanning technique with dynamic intravenous contrast injection. Images reviewed with lung, soft tissue and bone windows. Reconstructed coronal and sagittal MPR images reviewed. Additional 3 dimensional post-processing performed to develop Maximal Intensity Projection images (MS P). All images stored on PACS. All CT scanners at this facility use dose modulation, iterative reconstruction, and/or weight based d osing when appropriate to reduce radiation dose to as low as reasonably achievable (ALARA). [facility]: Dose Right [facility]: CareDose [facility]: Dose Right [facility]: Teradose 4D [facility]: Big In [place] CONTRAST TYPE AND DOSE: contrast/concentration: Isovue 370.00 mg/ml; Total Contrast Delivered: 62.0 ml; Total Saline Delivered: 75.0 ml Contrast bolus optimized for the pulmonary arteries. Not diagnostic for the aorta. RENAL FUNCTION: Creatinine 0.75 RADIATION DOSE: CT Rad equipment meets quality standard of care and radiation dose reduction techniq ues were employed. CTDIvol: 9.9 - 14.3 mGy. DLP: 618 mGy-cm. . LIMITATIONS: None. FINDINGS: LUNGS AND PLEURA: There are bilateral emphysematous changes. Airspace opacities are noted in the left upper lobe and left lower lobe. No pleural effusion or pneumothorax. AORTA AND GREAT VESSELS: No thoracic aortic aneurysm. Contrast bolus not optimized for the aorta. HEART: Small pericardial effusion. Scattered coronary artery calcifications. PULMONARY ARTERIES: No emboli visualized in the main pulmonary arteries or the segmental branches. HILAR AND MEDIASTINAL STRUCTURES: Precarinal lymph node measuring 12 mm in short axis. No pathologic ally enlarged lymph nodes are seen at the abner. HARDWARE: An endotracheal tube is noted. UPPER ABDOMEN: The enteric tube terminates in the stomach. There is trace ascites. There is pericho lecystic fluid. Small calcification at the liver, suggestive of a granuloma. THYROID AND OTHER SOFT TISSUES: Heterogeneous appearance of the thyroid gland. BONES: Degenerative changes in the spine. 3D MIPS: Confirm above findings. IMPRESSION: 1. No pulmonary emboli. 2. Airspace opacities in the left upper lobe and left lower lobe, may represent pneumonia. CT thorax after treatment recommended to ensure resolution and exclude neoplasm. 3. Emphysema. Mild mediastinal adenopathy. 4. Small pericardial effusion. 5. Heterogeneous appearance of the thyroid gland. This can be better evaluated dedicated ultrasound. 6. Trace ascites. Pericholecystic fluid, may be secondary to the ascites versus acute cholecystitis. COMMENT: Quality ID # [id number]: Final reports with documentation of one or more dose reduction techniques (e.g., Automated exposure control, adjustment of the mA and/or kV according to patient size, use of iterative reconstruction technique) TECHNICAL DOCUMENTATION: JOB ID: [id number]- All Rights Reserved
[2017-07-14] MEDS: PROPOFOL 100 ML IV PRN ×2 (17:20→22:22)
[2017-07-14] MEDS: NORMAL SALINE 1000 ML 1,000 ML IV PRN (17:40)
[2017-07-14] MEDS: MIDAZOLAM HCL 50 MG/100 ML RTUINJ IV PRN (17:40)
[2017-07-14 22:12] LABS: VANCOMYCIN,TROUGH 8.8 ug/mL (5.0-20.0)
[2017-07-15] MEDS: LEVALBUTEROL HCL NEB 1.25 MG/3 ML AMPUL NEB SCH ×6 (00:28→20:51)
[2017-07-15 04:15] LABS: HEMATOCRIT 24.2 % (36.0-47.0); MEAN CORPUSCULAR HEMOGLOBIN 25.6 pg (27.0-33.4); MEAN CORPUSCULAR HGB CONC 31.9 g/dL (32.0-36.0); MEAN CORPUSCULAR VOLUME 80 fl (80-97); PLATELET COUNT 226 10^3/uL (150-450); RED BLOOD COUNT 3.01 10^6/uL (3.72-5.28); RED CELL DISTRIBUTION WIDTH 21.1 % (11.5-14.0); WHITE BLOOD COUNT 15.1 10^3/uL (4.0-10.5)
[2017-07-15 04:19] LABS: HEMOGLOBIN 7.7 g/dL (12.0-15.5)
[2017-07-15 04:31] LABS: ALANINE AMINOTRANSFERASE 33 U/L (9-52); ALBUMIN 2.3 g/dL (3.5-5.0); ALKALINE PHOSPHATASE 54 U/L (38-126); ANION GAP 5 (5-19); ASPARTATE AMINO TRANSFERASE 18 U/L (14-36); BILIRUBIN,DIRECT 0.1 mg/dL (0.0-0.4); BILIRUBIN,TOTAL 0.2 mg/dL (0.2-1.3); BLOOD UREA NITROGEN 24 mg/dL (7-20); CALCIUM 8.9 mg/dL (8.4-10.2); CARBON DIOXIDE 30 mmol/L (22-30); CHLORIDE 108 mmol/L (98-107); GLUCOSE 281 mg/dL (75-110); POTASSIUM 4.4 mmol/L (3.6-5.0); SODIUM 142.6 mmol/L (137-145); TOTAL PROTEIN 4.4 g/dL (6.3-8.2)
[2017-07-15 04:38] LABS: ABSOLUTE LYMPHOCYTES# (MANUAL) 0.2 10^3/uL (0.5-4.7); ABSOLUTE NEUTROPHILS# (MANUAL) 14.9 10^3/uL (1.7-8.2); BASOPHILS % (MANUAL) 0 % (0-2); EOSINOPHILS % (MANUAL) 0 % (0-6); LYMPHOCYTES % (MANUAL) 1 % (13-45); MONOCYTES % (MANUAL) 0 % (3-13); NUCLEATED RED BLOOD CELLS 1 /100 WBC (0); PLATELET CLUMPS PRESENT; PLATELET COMMENT ADEQUATE; SEGMENTED NEUTROPHILS % (MAN) 99 % (42-78); TOTAL CELLS COUNTED 100
[2017-07-15 04:41] LABS: ANISOCYTOSIS SLIGHT; BURR CELLS SLIGHT; HYPOCHROMASIA 3+; POIKILOCYTOSIS SLIGHT; POLYCHROMASIA 1+; TARGET CELLS SLIGHT
[2017-07-15] MEDS: INSULIN LISPRO 100 UNIT/ML 3 ML VIAL SUBCUT PRN ×2 (05:51→11:17)
[2017-07-15] MEDS: METHYLPREDNISOLONE INJ 125 MG/2 ML SDV IV SCH ×4 (05:51→23:15)
--- NOTE | 2017-07-15 06:41 | RADIOLOGY REPORT (SQ) ---
EXAM DESCRIPTION: CHEST SINGLE VIEW CLINICAL HISTORY: Respiratory Failure COMPARISON: 07/14/2017 FINDINGS: Single frontal view of the chest. Endotracheal tube with tip below the clavicles. NG tube with tip proceeding below the diaphragm. Atherosclerotic calcification of the aortic arch. Heart is not enlarged. No consolidation, pneumothorax, or pleural effusion. No displaced rib fractures identified. Upper abdominal soft tissues are unremarkable. IMPRESSION: 1. Stable appearance of the chest.
[2017-07-15] MEDS: PROPOFOL 100 ML IV PRN ×2 (06:47→21:43)
[2017-07-15 07:48] LABS: ARTERIAL BLOOD BASE EXCESS 3.2 mmol/L; ARTERIAL BLOOD H2CO3 1.61 mmol/L (1.05-1.35); ARTERIAL BLOOD HCO3 29.3 mmol/L (20-26); ARTERIAL BLOOD O2 SATURATION 92.3 % (94-98); ARTERIAL BLOOD PCO2 53.6 mmHg (35-45); ARTERIAL BLOOD PH 7.36 (7.35-7.45); ARTERIAL BLOOD PO2 67.2 mmHg (80-100)
[2017-07-15 07:54] LABS: ARTERIAL BLOOD FIO2 40%
[2017-07-15] MEDS: BUDESONIDE NEB 0.5 MG/2 ML AMPUL NEB SCH ×2 (08:14→20:51)
[2017-07-15] MEDS: DILTIAZEM HCL/D5W 125 MG/125 ML RTUINJ IV PRN ×2 (08:47→22:25)
[2017-07-15] MEDS: DRONEDARONE HYDROCHLORIDE 400 MG TABLET PO SCH ×2 (09:04→22:25)
[2017-07-15] MEDS: DIGOXIN 0.125 MG TABLET PO SCH (09:04)
[2017-07-15] MEDS: CEFEPIME 1 GM/D5W RTU 1 GM/50 ML RTUPB IV SCH ×2 (09:05→22:26)
[2017-07-15] MEDS: HEPARIN SOD (PORCINE) 5,000 UNIT/ML 1 ML SYRINGE SUBCUT SCH ×2 (09:07→22:26)
[2017-07-15] MEDS: RANOLAZINE 500 MG TAB.SR.12H PO SCH ×2 (09:08→17:15)
[2017-07-15] MEDS ORDERED: VANCOMYCIN HCL 750 MG in DEXTROSE 5%-WATER 250 ML IV SCH (10:00)
--- NOTE | 2017-07-15 10:39 | PDOC PROGRESS REPORT ---
Subjective Progress Note for:: 07/15/17 Subjective:: Nursing states that she has been stable. Nursing states that hemoglobin is 7.7. Reason For Visit: ACUTE ON CHRONIC RESPIRATORY FAILURE SECONDARY TO Physical Exam Vital Signs: Temp Pulse Resp BP Pulse Ox 99.1 F 90 21 H 104/46 L 94 07/15/17 10:00 07/15/17 08:14 07/15/17 10:00 07/15/17 09:57 07/15/17 10:00 Intake & Output 07/14/17 07/15/17 07/16/17 06:59 06:59 06:59 Intake Total 2949 2497 Output Total 1930 1175 770 Balance 1019 1322 -770 Weight 67.8 kg 68.3 kg General appearance: PRESENT: other - sedation Head exam: PRESENT: atraumatic, normocephalic Eye exam: PRESENT: conjunctiva pink, EOMI. ABSENT: scleral icterus Ear exam: PRESENT: normal external ear exam Mouth exam: PRESENT: moist, tongue midline, other Neck exam: ABSENT: carotid bruit, JVD, lymphadenopathy, thyromegaly Respiratory exam: PRESENT: decreased breath sounds, wheezes. ABSENT: rales, rhonchi Cardiovascular exam: PRESENT: irregular rhythm. ABSENT: diastolic murmur, rubs , systolic murmur Pulses: PRESENT: normal dorsalis pedis pul Vascular exam: PRESENT: normal capillary refill GI/Abdominal exam: PRESENT: normal bowel sounds, soft. ABSENT: distended, guarding, mass, organolmegaly, rebound, tenderness Rectal exam: PRESENT: deferred Extremities exam: ABSENT: calf tenderness, clubbing, pedal edema Neurological exam: PRESENT: other - sedation Psychiatric exam: PRESENT: other - sedation Skin exam: PRESENT: dry, intact, warm. ABSENT: cyanosis, rash Results Laboratory Results: 07/15/17 03:58 07/15/17 03:58 07/14/17 07/14/17 07/14/17 09:23 09:23 21:40 WBC RBC Hgb Hct MCV MCH MCHC RDW Plt Count Seg Neutrophils % Lymphocytes % Monocytes % Eosinophils % Basophils % Absolute Neutrophils Absolute Lymphocytes Absolute Monocytes Absolute Eosinophils Absolute Basophils Retic Count (auto) 1.04 Absolute Retic 0.033 Carbonic Acid HCO3/H2CO3 Ratio ABG pH ABG pCO2 ABG pO2 ABG HCO3 ABG O2 Saturation ABG Base Excess FiO2 Sodium Potassium Chloride Carbon Dioxide Anion Gap BUN Creatinine 0.51 L Est GFR ( Amer) > 60 Est GFR (Non-Af Amer) > 60 Glucose Calcium Iron 15.7 L TIBC 223 L % Saturation 7 Ferritin 424.00 H Total Bilirubin AST ALT Alkaline Phosphatase Total Protein Albumin Vitamin B12 > 1000.0 H Folate 14.20 Blood Type Antibody Screen 07/15/17 07/15/17 07/15/17 03:58 03:58 05:51 WBC 15.1 H RBC 3.01 L Hgb 7.7 L Hct 24.2 L MCV 80 MCH 25.6 L MCHC 31.9 L RDW 21.1 H Plt Count 226 Seg Neutrophils % Not Reportable Lymphocytes % Not Reportable Monocytes % Not Reportable Eosinophils % Not Reportable Basophils % Not Reportable Absolute Neutrophils Not Reportable Absolute Lymphocytes Not Reportable Absolute Monocytes Not Reportable Absolute Eosinophils Not Reportable Absolute Basophils Not Reportable Retic Count (auto) Absolute Retic Carbonic Acid HCO3/H2CO3 Ratio ABG pH ABG pCO2 ABG pO2 ABG HCO3 ABG O2 Saturation ABG Base Excess FiO2 Sodium 142.6 Potassium 4.4 Chloride 108 H Carbon Dioxide 30 Anion Gap 5 BUN 24 H Creatinine 0.55 Est GFR ( Amer) > 60 Est GFR (Non-Af Amer) > 60 Glucose 281 H Calcium 8.9 Iron TIBC % Saturation Ferritin Total Bilirubin 0.2 AST 18 ALT 33 Alkaline Phosphatase 54 Total Protein 4.4 L Albumin 2.3 L Vitamin B12 Folate Blood Type O POSITIVE Antibody Screen NEGATIVE 07/15/17 07/15/17 06:05 07:35 WBC RBC Hgb Hct MCV MCH MCHC RDW Plt Count Seg Neutrophils % Lymphocytes % Monocytes % Eosinophils % Basophils % Absolute Neutrophils Absolute Lymphocytes Absolute Monocytes Absolute Eosinophils Absolute Basophils Retic Count (auto) Absolute Retic Carbonic Acid Cancelled 1.61 H HCO3/H2CO3 Ratio Cancelled 18:1 ABG pH Cancelled 7.36 ABG pCO2 Cancelled 53.6 H ABG pO2 Cancelled 67.2 L ABG HCO3 Cancelled 29.3 H ABG O2 Saturation Cancelled 92.3 L ABG Base Excess Cancelled 3.2 FiO2 Cancelled 40% Sodium Potassium Chloride Carbon Dioxide Anion Gap BUN Creatinine Est GFR ( Amer) Est GFR (Non-Af Amer) Glucose Calcium Iron TIBC % Saturation Ferritin Total Bilirubin AST ALT Alkaline Phosphatase Total Protein Albumin Vitamin B12 Folate Blood Type Antibody Screen 07/13/17 01:55 Rey Catheter Urine Culture - Final NO GROWTH 2 DAYS 07/12/17 23:40 Tracheal Aspirate Gram Stain - Final 07/12/17 23:40 Tracheal Aspirate Sputum Culture - Final Haemophilus Influenzae Corynebacterium Striatum Greatly Reduced Normal [place] 07/13/17 00:05 Nasophary (Mrsa Only) MRSA Surveillance Culture - Final NO MRSA RECOVERED 07/13/17 07/13/17 07/13/17 00:19 06:30 12:23 Troponin I 0.140 0.097 0.073 Impressions: Chest/Abdomen CTA 07/14/17 00:00 IMPRESSION: 1. No pulmonary emboli. 2. Airspace opacities in the left upper lobe and left lower lobe, may represent pneumonia. CT thorax after treatment recommended to ensure resolution and exclude neoplasm. 3. Emphysema. Mild mediastinal adenopathy. 4. Small pericardial effusion. 5. Heterogeneous appearance of the thyroid gland. This can be better evaluated dedicated ultrasound. 6. Trace ascites. Pericholecystic fluid, may be secondary to the ascites versus acute cholecystitis. Chest X-Ray 07/15/17 06:00 IMPRESSION: 1. Stable appearance of the chest. Assessment & Plan - Diagnosis (1) Acute and chronic respiratory failure with hypoxia Is this a current diagnosis for this admission?: Yes Plan: Secondary to acute exacerbation of COPD in setting of end-stage COPD and Haemophilus influenza: We continue steroids, breathing treatments, cefepime. Dr. Talbot has been consulted. CTA of chest Negative for PE. Will discontinue vancomycin. (2) COPD exacerbation Is this a current diagnosis for this admission?: Yes Plan: We continue steroids, breathing treatments, and antibiotics. Dr. Talbot has been consulted (3) Leukocytosis Is this a current diagnosis for this admission?: Yes Plan: Secondary to Haemophilus influenza: Patient's white count is trending down. Will continue cefepime (4) DM type 2 (diabetes mellitus, type 2) Qualifiers: Diabetes mellitus complication status: with unspecified complications Diabetes mellitus fdc insulin use: unspecified technician terminal and repeater insulin use status Qualified Code(s): E11.8 - Type 2 diabetes mellitus with unspecified complications Is this a current diagnosis for this admission?: Yes Plan: We continue sliding scale insulin (5) Elevated LFTs Is this a current diagnosis for this admission?: Yes Plan: Resolved. (6) Atrial flutter Qualifiers: Is this a current diagnosis for this admission?: Yes Plan: Patient currently on Multaq, diltiazem, and Digoxin. (7) Tobacco abuse counseling Is this a current diagnosis for this admission?: Yes Plan: We will encourage discontinuation of tobacco products. (8) Tachycardia Is this a current diagnosis for this admission?: Yes Plan: Most likely atrial flutter: Per Cardiology (9) Anemia Qualifiers: Anemia type: unspecified type Qualified Code(s): D64.9 - Anemia, unspecified Is this a current diagnosis for this admission?: Yes Plan: Iron deficiency anemia: We will place patient on Venofer. Stool occult pending (10) Sepsis Qualifiers: Sepsis type: Haemophilus influenzae Qualified Code(s): A41.3 - Sepsis due to Hemophilus influenzae Is this a current diagnosis for this admission?: Yes Plan: Will continue current treatment. (HR, WBC, RR, and Identified Source H. Influenza) (11) Hypotension (arterial) Qualifiers: Hypotension type: unspecified hypotension type Qualified Code(s): I95.9 - Hypotension, unspecified Is this a current diagnosis for this admission?: Yes Plan: Secondary to medications i.e. propofol and diltiazem in setting of Sepsis: Will continue current treatment. (12) DVT prophylaxis Is this a current diagnosis for this admission?: Yes Plan: Will place SCDs due to Hemoglobin dropping. - Time Time Spent with patient: 25-34 minutes
[2017-07-15] MEDS ORDERED: IRON SUCROSE COMPLEX INJ/PF 100 MG/5 ML SDV IV ONE (13:00)
--- NOTE | 2017-07-15 13:10 | PDOC PROGRESS REPORT ---
Subjective Progress Note for:: 07/15/17 Subjective:: Patient was noted to have high heart rate early this morning after Cardizem drip was stopped. She is now off vasopressin.. She remains in atrial flutter but heart rate is well controlled. She is getting all supportive care. Hemoglobin is noted to have significant drop. Partly related to hemodilution but would need to rule out any ongoing bleed before deciding about any chronic anticoagulation. Patient remains intubated, sedated, patient however looks comfortable and in acute distress. Medications reviewed. Reason For Visit: ACUTE ON CHRONIC RESPIRATORY FAILURE SECONDARY TO Physical Exam Vital Signs: Temp Pulse Resp BP Pulse Ox 99.1 F 79 16 104/46 L 98 07/15/17 10:00 07/15/17 12:15 07/15/17 12:15 07/15/17 09:57 07/15/17 12:15 Intake & Output 07/14/17 07/15/17 07/16/17 06:59 06:59 06:59 Intake Total 2949 2497 Output Total 1930 1175 870 Balance 1019 1322 -870 Weight 67.8 kg 68.3 kg Exam: GENERAL: well-nourished and in no acute distress. Patient is intubated and sedated. Orientation cannot be checked HEAD: Atraumatic, normocephalic. EYES: Pupils equal round and reactive to light, extraocular movements could not be checked, sclera anicteric, conjunctiva are normal. ENT: TMs normal, nares patent, oropharynx clear without exudates. Moist mucous membranes. No oral ulcerations or bleeding gums noted NECK: supple without lymphadenopathy or JVD. Trachea is central. No cervical or axillary lymphadenopathy noted. Carotids are 2+ LUNGS: Breath sounds mostly clear to auscultation patient is noted to have bibasal crackles at the extreme bases CHEST: Palpation of the chest wall shows no significant chest wall tenderness or abnormalities. HEART: [place] S[employer]ER, No PSH, 2/6 TERRIE aortic area, 1/6 johnson systolic murmur mitral area , no rubs or gallops. ABDOMEN: Soft, no significant tenderness appreciated, normoactive bowel sounds. No guarding, no rebound. No rigidity noted . No masses appreciated. EXTREMITIES: Pedal pulses are 1-2+, no calf tenderness noted, 1+ pedal edema noted. No clubbing or cyanosis. NEUROLOGICAL: The patient cannot participate in the neurological exam but no facial asymmetry noted. Extremities slightly hypotonic PSYCH: This cannot be evaluated. Patient cannot participate. SKIN: No significant ecchymosis, rash, or signs of pruritus noted. MUSCULOSKELETAL EXAM: No significant joint swelling noted. Patient cannot participate in musculoskeletal exam Results Laboratory Results: 07/15/17 03:58 07/15/17 03:58 07/14/17 07/15/17 07/15/17 21:40 03:58 03:58 WBC 15.1 H RBC 3.01 L Hgb 7.7 L Hct 24.2 L MCV 80 MCH 25.6 L MCHC 31.9 L RDW 21.1 H Plt Count 226 Seg Neutrophils % Not Reportable Lymphocytes % Not Reportable Monocytes % Not Reportable Eosinophils % Not Reportable Basophils % Not Reportable Absolute Neutrophils Not Reportable Absolute Lymphocytes Not Reportable Absolute Monocytes Not Reportable Absolute Eosinophils Not Reportable Absolute Basophils Not Reportable Carbonic Acid HCO3/H2CO3 Ratio ABG pH ABG pCO2 ABG pO2 ABG HCO3 ABG O2 Saturation ABG Base Excess FiO2 Sodium 142.6 Potassium 4.4 Chloride 108 H Carbon Dioxide 30 Anion Gap 5 BUN 24 H Creatinine 0.51 L 0.55 Est GFR ( Amer) > 60 > 60 Est GFR (Non-Af Amer) > 60 > 60 Glucose 281 H Calcium 8.9 Total Bilirubin 0.2 AST 18 ALT 33 Alkaline Phosphatase 54 Total Protein 4.4 L Albumin 2.3 L Blood Type Antibody Screen 07/15/17 07/15/17 07/15/17 05:51 06:05 07:35 WBC RBC Hgb Hct MCV MCH MCHC RDW Plt Count Seg Neutrophils % Lymphocytes % Monocytes % Eosinophils % Basophils % Absolute Neutrophils Absolute Lymphocytes Absolute Monocytes Absolute Eosinophils Absolute Basophils Carbonic Acid Cancelled 1.61 H HCO3/H2CO3 Ratio Cancelled 18:1 ABG pH Cancelled 7.36 ABG pCO2 Cancelled 53.6 H ABG pO2 Cancelled 67.2 L ABG HCO3 Cancelled 29.3 H ABG O2 Saturation Cancelled 92.3 L ABG Base Excess Cancelled 3.2 FiO2 Cancelled 40% Sodium Potassium Chloride Carbon Dioxide Anion Gap BUN Creatinine Est GFR ( Amer) Est GFR (Non-Af Amer) Glucose Calcium Total Bilirubin AST ALT Alkaline Phosphatase Total Protein Albumin Blood Type O POSITIVE Antibody Screen NEGATIVE 07/13/17 01:55 Rey Catheter Urine Culture - Final NO GROWTH 2 DAYS 07/12/17 23:40 Tracheal Aspirate Gram Stain - Final 07/12/17 23:40 Tracheal Aspirate Sputum Culture - Final Haemophilus Influenzae Corynebacterium Striatum Greatly Reduced Normal [place] 07/13/17 00:05 Nasophary (Mrsa Only) MRSA Surveillance Culture - Final NO MRSA RECOVERED 07/13/17 07/13/17 07/13/17 00:19 06:30 12:23 Troponin I 0.140 0.097 0.073 EKG Comments: Telemetry strips shows atrial flutter with controlled ventricular response. Impressions: Chest/Abdomen CTA 07/14/17 00:00 IMPRESSION: 1. No pulmonary emboli. 2. Airspace opacities in the left upper lobe and left lower lobe, may represent pneumonia. CT thorax after treatment recommended to ensure resolution and exclude neoplasm. 3. Emphysema. Mild mediastinal adenopathy. 4. Small pericardial effusion. 5. Heterogeneous appearance of the thyroid gland. This can be better evaluated dedicated ultrasound. 6. Trace ascites. Pericholecystic fluid, may be secondary to the ascites versus acute cholecystitis. Chest X-Ray 07/15/17 06:00 IMPRESSION: 1. Stable appearance of the chest. Assessment & Plan - Diagnosis (1) Atrial fibrillation and flutter Is this a current diagnosis for this admission?: Yes (2) Febrile illness Is this a current diagnosis for this admission?: Yes (3) Acute and chronic respiratory failure Qualifiers: Respiratory failure complication: hypoxia Qualified Code(s): J96.21 - Acute and chronic respiratory failure with hypoxia (4) COPD exacerbation Is this a current diagnosis for this admission?: Yes (5) DM type 2 (diabetes mellitus, type 2) Qualifiers: Diabetes mellitus complication status: with unspecified complications Diabetes mellitus intermediate insulin use: unspecified intermediate insulin use status Qualified Code(s): E11.8 - Type 2 diabetes mellitus with unspecified complications Is this a current diagnosis for this admission?: Yes (6) Coronary artery disease Qualifiers: Coronary Disease-Associated Artery/Lesion type: [place] artery Associated angina: without angina Is this a current diagnosis for this admission?: Yes (7) Sepsis Qualifiers: Sepsis type: sepsis due to unspecified organism Qualified Code(s): A41.9 - Sepsis, unspecified organism Is this a current diagnosis for this admission?: Yes (8) Hypotension (arterial) Qualifiers: Hypotension type: unspecified hypotension type Qualified Code(s): I95.9 - Hypotension, unspecified Is this a current diagnosis for this admission?: Yes - Notes Notes: Recommend to low-dose Cardizem at 5 mg/h intravenously. This is being restarted. Troponin I elevation: Troponin I is elevated and most likely related to severe hypoxemia, supply demand mismatch from A. fib with rapid ventricular response, hypotension and sepsis. Ischemia workup not planned. Atrial flutter fibrillation: Recommend rate control with Cardizem as patient has severe COPD and emphysema. Could use very selective beta 1 blockers if needed. Recommend also digoxin for rate control. Patient has low chads score of either 1 or 2. Patient is noted to be diabetic. Currently patient is anemic and had drop in hemoglobin. Decision regarding chronic anticoagulation is being deferred for the time being. Continue with DVT prophylaxis. Acute on chronic respiratory failure with hypoxemia and also hypercarbia. Review of chart shows that patient has severe emphysema. Patient seen by youth liaison officer. Febrile illness: Patient was noted to have some chills in the ER. Subsequently was noted to have high temperature. Continue broad-spectrum antibiotics. Sepsis: Feel that patient most likely has sepsis which is also causing hypotension. Currently no longer on vasopressin. Sepsis seems to be improving. Hypotension: Most likely related to sepsis and relative hypovolemia. Blood pressure now improved. Patient off vasopressin drip. 2D echo was technically difficult but shows well-preserved LV and RV EF. No significant valvular stenosis noted.. COPD with exacerbation: Continue with aggressive steroids and bronchodilator therapy. Xopenex preferred. Diabetes: Recommend good control but avoid any hypo-or hyperglycemia. Coronary artery disease: Patient is noted to have CAD on chart review. At this point EKG not showing any acute ST-T wave changes. Troponins noted to be high and is probably related to acute respiratory failure with hypoxemia and possibly underlying sepsis. - Time Time with patient: Greater than 35 minutes - CODE STATUS was discussed, patient remains full code. Surrogate decision-maker patient's friend. Multiple medical problems were addressed. More than 50% of the time spent coordinating care, discussing management plans with involved caregivers. Management plans discussed with involved personnels. Medical decision making was of moderate to high complexity, patient's has multiple comorbidities. Medications reviewed and adjusted accordingly: Yes
[2017-07-15] MEDS: MORPHINE SULFATE 10 MG/ML INJ IV PRN ×2 (13:46→21:43)
[2017-07-16] MEDS: LEVALBUTEROL HCL NEB 1.25 MG/3 ML AMPUL NEB SCH ×7 (00:31→23:56)
[2017-07-16 04:33] LABS: ARTERIAL BLOOD BASE EXCESS 2.4 mmol/L; ARTERIAL BLOOD H2CO3 1.63 mmol/L (1.05-1.35); ARTERIAL BLOOD HCO3 28.7 mmol/L (20-26); ARTERIAL BLOOD PH 7.34 (7.35-7.45); ARTERIAL BLOOD PO2 70.4 mmHg (80-100); ARTERIAL BLOOD TOTAL CO2 30.4 mmol/L (21-25)
[2017-07-16 04:34] LABS: ARTERIAL BLOOD FIO2 50%
[2017-07-16 04:36] LABS: HEMATOCRIT 26.4 % (36.0-47.0); HEMOGLOBIN 8.4 g/dL (12.0-15.5); MEAN CORPUSCULAR HEMOGLOBIN 25.6 pg (27.0-33.4); MEAN CORPUSCULAR VOLUME 80 fl (80-97); PLATELET COUNT 236 10^3/uL (150-450); RED CELL DISTRIBUTION WIDTH 21.3 % (11.5-14.0)
[2017-07-16 04:47] LABS: ALANINE AMINOTRANSFERASE 35 U/L (9-52); ALBUMIN 2.5 g/dL (3.5-5.0); ALKALINE PHOSPHATASE 60 U/L (38-126); ANION GAP 7 (5-19); ASPARTATE AMINO TRANSFERASE 15 U/L (14-36); BILIRUBIN,DIRECT 0.1 mg/dL (0.0-0.4); BILIRUBIN,TOTAL 0.2 mg/dL (0.2-1.3); BLOOD UREA NITROGEN 18 mg/dL (7-20); CALCIUM 8.7 mg/dL (8.4-10.2); CARBON DIOXIDE 30 mmol/L (22-30); CHLORIDE 108 mmol/L (98-107); GLUCOSE 235 mg/dL (75-110); MAGNESIUM 2.1 mg/dL (1.6-2.3); POTASSIUM 4.1 mmol/L (3.6-5.0); SODIUM 144.5 mmol/L (137-145); TOTAL PROTEIN 4.7 g/dL (6.3-8.2)
[2017-07-16 05:07] LABS: ABSOLUTE LYMPHOCYTES# (MANUAL) 0.4 10^3/uL (0.5-4.7); ABSOLUTE MONOCYTES # (MANUAL) 0.2 10^3/uL (0.1-1.4); ABSOLUTE NEUTROPHILS# (MANUAL) 11.4 10^3/uL (1.7-8.2); BASOPHILS % (MANUAL) 0 % (0-2); EOSINOPHILS % (MANUAL) 0 % (0-6); LYMPHOCYTES % (MANUAL) 2 % (13-45); MONOCYTES % (MANUAL) 2 % (3-13); NUCLEATED RED BLOOD CELLS 1 /100 WBC (0); SEGMENTED NEUTROPHILS % (MAN) 95 % (42-78); TOTAL CELLS COUNTED 100
[2017-07-16 05:11] LABS: ANISOCYTOSIS 3+; OVALOCYTES SLIGHT; POIKILOCYTOSIS 1+; TOXIC GRANULATION 1+
[2017-07-16 05:12] LABS: PLATELET COMMENT ADEQUATE; PLATELET LARGE PRESENT; SCHISTOCYTES SLIGHT; TEAR DROP CELLS 2+
[2017-07-16] MEDS: PROPOFOL 100 ML IV PRN ×4 (05:49→20:02)
[2017-07-16] MEDS: INSULIN LISPRO 100 UNIT/ML 3 ML VIAL SUBCUT PRN ×2 (05:49→18:40)
[2017-07-16] MEDS: METHYLPREDNISOLONE INJ 125 MG/2 ML SDV IV SCH ×4 (05:49→23:10)
[2017-07-16] MEDS: BUDESONIDE NEB 0.5 MG/2 ML AMPUL NEB SCH ×2 (08:26→19:55)
[2017-07-16] MEDS: DILTIAZEM HCL/D5W 125 MG/125 ML RTUINJ IV PRN (09:27)
[2017-07-16] MEDS: CEFEPIME 1 GM/D5W RTU 1 GM/50 ML RTUPB IV SCH ×2 (09:30→23:10)
[2017-07-16] MEDS: DIGOXIN 0.125 MG TABLET PO SCH (09:34)
[2017-07-16] MEDS: DRONEDARONE HYDROCHLORIDE 400 MG TABLET PO SCH ×2 (09:35→23:10)
[2017-07-16] MEDS: IRON SUCROSE COMPLEX INJ/PF 100 MG/5 ML SDV IV SCH (09:35)
[2017-07-16] MEDS: HEPARIN SOD (PORCINE) 5,000 UNIT/ML 1 ML SYRINGE SUBCUT SCH ×2 (09:36→23:10)
--- NOTE | 2017-07-16 09:42 | RADIOLOGY REPORT (SQ) ---
EXAM DESCRIPTION: CHEST SINGLE VIEW COMPLETED DATE/TIME: 07/16/2017 9:28 am REASON FOR STUDY: CENTRAL LINE PLACEMENT COMPARISON: 07/15/2017 EXAM PARAMETERS: NUMBER OF VIEWS: One view TECHNIQUE: Single frontal radiograph of the chest. RADIATION DOSE: N/A LIMITATIONS: None. FINDINGS: TEMPORARY SUPPORT DEVICES:ETT in expected location. NG tube courses below the julianne-diaphr agm in to the stomach. Central venous access catheter tip is in expected location. LUNGS AND PLEURA: No opacities. No effusions. No masses. No pneumothorax. MEDIASTINUM AND HILAR STRUCTURES: No masses. Contour normal. HEART AND VASCULAR STRUCTURES: Heart normal in size. normal vascularity. Aorta normal for age. BONES: No acute findings. OTHER: No other significant finding. IMPRESSION: New airspace disease consistent with pneumonia in the left midzone. SUPPORT DEVICE(S) IN EXPECTED LOCATIONS. TECHNICAL DOCUMENTATION: JOB ID: [id number] [employer]- All Rights Reserved
[2017-07-16 10:56] LABS: VANCOMYCIN,TROUGH < 5.0 ug/mL (5.0-20.0)
--- NOTE | 2017-07-16 11:58 | PDOC PROGRESS REPORT ---
Subjective Progress Note for:: 07/16/17 Subjective:: Spoke to night Nurse who states that pt has been stable. Reason For Visit: ACUTE ON CHRONIC RESPIRATORY FAILURE SECONDARY TO Physical Exam Vital Signs: Temp Pulse Resp BP Pulse Ox 98.6 F 86 25 H 138/70 H 94 07/16/17 10:00 07/16/17 10:00 07/16/17 10:00 07/16/17 10:00 07/16/17 10:00 Intake & Output 07/15/17 07/16/17 07/17/17 06:59 06:59 06:59 Intake Total 2497 1576 Output Total 1175 1870 360 Balance 1322 -294 -360 Weight 68.3 kg 68.3 kg General appearance: PRESENT: thin, other - Sedated Head exam: PRESENT: atraumatic, normocephalic Eye exam: PRESENT: conjunctiva pink, EOMI. ABSENT: scleral icterus Ear exam: PRESENT: normal external ear exam Mouth exam: PRESENT: moist, tongue midline, other - ETT in place Neck exam: ABSENT: carotid bruit, JVD, lymphadenopathy, thyromegaly Respiratory exam: PRESENT: decreased breath sounds, wheezes, other - No crackles appreciated. Cardiovascular exam: PRESENT: irregular rhythm Pulses: PRESENT: normal dorsalis pedis pul Vascular exam: PRESENT: normal capillary refill GI/Abdominal exam: PRESENT: normal bowel sounds, soft. ABSENT: distended, guarding, mass, organolmegaly, rebound, tenderness Rectal exam: PRESENT: deferred Extremities exam: ABSENT: calf tenderness, clubbing, pedal edema Musculoskeletal exam: PRESENT: other - sedated Neurological exam: PRESENT: other - sedated Psychiatric exam: PRESENT: other - sedated Skin exam: PRESENT: dry, warm Results Laboratory Results: 07/16/17 04:20 07/16/17 10:10 07/16/17 07/16/17 07/16/17 04:20 04:20 04:20 WBC 12.0 H RBC 3.30 L Hgb 8.4 L Hct 26.4 L MCV 80 MCH 25.6 L MCHC 32.0 RDW 21.3 H Plt Count 236 Seg Neutrophils % Not Reportable Lymphocytes % Not Reportable Monocytes % Not Reportable Eosinophils % Not Reportable Basophils % Not Reportable Absolute Neutrophils Not Reportable Absolute Lymphocytes Not Reportable Absolute Monocytes Not Reportable Absolute Eosinophils Not Reportable Absolute Basophils Not Reportable Carbonic Acid 1.63 H HCO3/H2CO3 Ratio 17:1 ABG pH 7.34 L ABG pCO2 54.0 H ABG pO2 70.4 L ABG HCO3 28.7 H ABG O2 Saturation 93.0 L ABG Base Excess 2.4 FiO2 50% Sodium 144.5 Potassium 4.1 Chloride 108 H Carbon Dioxide 30 Anion Gap 7 BUN 18 Creatinine 0.59 Est GFR ( Amer) > 60 Est GFR (Non-Af Amer) > 60 Glucose 235 H Calcium 8.7 Magnesium 2.1 Total Bilirubin 0.2 AST 15 ALT 35 Alkaline Phosphatase 60 Total Protein 4.7 L Albumin 2.5 L 07/16/17 10:10 WBC RBC Hgb Hct MCV MCH MCHC RDW Plt Count Seg Neutrophils % Lymphocytes % Monocytes % Eosinophils % Basophils % Absolute Neutrophils Absolute Lymphocytes Absolute Monocytes Absolute Eosinophils Absolute Basophils Carbonic Acid HCO3/H2CO3 Ratio ABG pH ABG pCO2 ABG pO2 ABG HCO3 ABG O2 Saturation ABG Base Excess FiO2 Sodium Potassium Chloride Carbon Dioxide Anion Gap BUN Creatinine 0.52 Est GFR ( Amer) > 60 Est GFR (Non-Af Amer) > 60 Glucose Calcium Magnesium Total Bilirubin AST ALT Alkaline Phosphatase Total Protein Albumin 07/13/17 01:55 Rey Catheter Urine Culture - Final NO GROWTH 2 DAYS 07/13/17 07/13/17 07/13/17 00:19 06:30 12:23 Troponin I 0.140 0.097 0.073 Impressions: Chest/Abdomen CTA 07/14/17 00:00 IMPRESSION: 1. No pulmonary emboli. 2. Airspace opacities in the left upper lobe and left lower lobe, may represent pneumonia. CT thorax after treatment recommended to ensure resolution and exclude neoplasm. 3. Emphysema. Mild mediastinal adenopathy. 4. Small pericardial effusion. 5. Heterogeneous appearance of the thyroid gland. This can be better evaluated dedicated ultrasound. 6. Trace ascites. Pericholecystic fluid, may be secondary to the ascites versus acute cholecystitis. Chest X-Ray 07/16/17 00:00 IMPRESSION: New airspace disease consistent with pneumonia in the left midzone. SUPPORT DEVICE(S) IN EXPECTED LOCATIONS. Assessment & Plan - Diagnosis (1) Acute and chronic respiratory failure with hypoxia Is this a current diagnosis for this admission?: Yes Plan: Secondary to acute exacerbation of COPD in setting of end-stage COPD and Haemophilus influenza Pneumonia: We continue steroids, breathing treatments, cefepime. Dr. Talbot has been consulted. CTA of chest Negative for PE. Will discontinue vancomycin. MRSA Surveillance culture negative. (2) COPD exacerbation Is this a current diagnosis for this admission?: Yes Plan: We continue steroids, breathing treatments, and antibiotics. Dr. Talbot has been consulted (3) Leukocytosis Is this a current diagnosis for this admission?: Yes Plan: Pt WBC will continue to improve. Will check CBC. (4) DM type 2 (diabetes mellitus, type 2) Qualifiers: Diabetes mellitus complication status: with unspecified complications Diabetes mellitus exterminator insulin use: unspecified exterminator insulin use status Qualified Code(s): E11.8 - Type 2 diabetes mellitus with unspecified complications Is this a current diagnosis for this admission?: Yes Plan: We continue sliding scale insulin. Will give Lantus 15 units SQ daily. (5) Elevated LFTs Is this a current diagnosis for this admission?: Yes Plan: Resolved. (6) Atrial flutter Qualifiers: Is this a current diagnosis for this admission?: Yes Plan: Patient currently on Multaq, diltiazem, and Digoxin. (7) Tobacco abuse counseling Is this a current diagnosis for this admission?: Yes Plan: We will encourage discontinuation of tobacco products. (8) Tachycardia Is this a current diagnosis for this admission?: Yes Plan: Most likely atrial flutter 3 to 1 conduction: Will continue current medications. Per Cardiology (9) Anemia Qualifiers: Anemia type: unspecified type Qualified Code(s): D64.9 - Anemia, unspecified Is this a current diagnosis for this admission?: Yes Plan: Iron deficiency anemia: We continue Venofer for 5 days. Stool occult pending (10) Sepsis Qualifiers: Sepsis type: Haemophilus influenzae Qualified Code(s): A41.3 - Sepsis due to Hemophilus influenzae Is this a current diagnosis for this admission?: Yes Plan: Will continue current treatment. (HR, WBC, RR, and Identified Source H. Influenza) (11) Hypotension (arterial) Qualifiers: Hypotension type: unspecified hypotension type Qualified Code(s): I95.9 - Hypotension, unspecified Is this a current diagnosis for this admission?: Yes Plan: Resolved. (12) Nutrition disorder Is this a current diagnosis for this admission?: Yes Plan: Will place pt on NGT feeds with Glucerna. (13) DVT prophylaxis Is this a current diagnosis for this admission?: Yes Plan: SCDs due to Hemoglobin dropping. - Time Time Spent with patient: 25-34 minutes
--- NOTE | 2017-07-16 13:29 | Operative Report ---
Operative Report DATE OF SURGERY: 07/16/17 PREOPERATIVE DIAGNOSIS: Respiratory failure POSTOPERATIVE DIAGNOSIS: Same OPERATION: Insertion of right subclavian triple-lumen access catheter SURGEON: JULIAN SMITH ANESTHESIA: Local TISSUE REMOVED OR ALTERED: None COMPLICATIONS: None ESTIMATED BLOOD LOSS: Scant PROCEDURE: Informed consent was obtained. The patient was placed in Trendelenburg the right subclavian area was exposed , prepped and draped in a sterile fashion. Surgical plan and surgical timeout discussed. The right subclavian area was anesthetized with 1% lidocaine without epinephrine. An 18-gauge needle and wire were threaded into the right subclavian vein. The tract was dilated up, the dilator removed, and the triple- lumen central venous access catheter was threaded into the right subclavian vein uneventfully to the hub. There was excellent aspiration and flush of saline through all 3 lumens. The catheter was affixed to the skin with a Biopatch and 2-0 silk suture; sterile dressing applied. The patient tolerated the procedure well. There were no complications. Portable upright chest x-ray pending at time of dictation.
[2017-07-16] MEDS: MIDAZOLAM HCL 50 MG/100 ML RTUINJ IV PRN ×2 (14:47→20:02)
[2017-07-16] MEDS: NORMAL SALINE 1000 ML 1,000 ML IV PRN (14:54)
[2017-07-16] MEDS ORDERED: DIGOXIN INJ 0.5 MG/2 ML AMPULE ONE (16:17)
[2017-07-16] MEDS ORDERED: DILTIAZEM HCL INJ 25 MG/5 ML VIAL ONE (16:36)
--- NOTE | 2017-07-16 16:48 | RADIOLOGY REPORT (SQ) ---
EXAM DESCRIPTION: CHEST SINGLE VIEW COMPLETED DATE/TIME: 07/16/2017 4:35 pm REASON FOR STUDY: CHANGE IN RESPIRATORY STATUS COMPARISON: Earlier the same day. NUMBER OF VIEWS: One view. TECHNIQUE: Single frontal radiographic image of the chest acquired. LIMITATIONS: None. FINDINGS: LUNGS AND PLEURA: Segmental airspace disease in the left lung with relative sparing of the apex not significantly changed. No pneumothorax. MEDIASTINUM AND HEART: Stable heart size and mediastinal structures. SUPPORT DEVICES: Appropriate location without change. BONY STRUCTURES: No acute findings. HARDWARE: None. OTHER: No other significant finding. IMPRESSION: Left upper and lower lobe pneumonia. No pneumothorax. No significant change.
[2017-07-16] MEDS ORDERED: NORMAL SALINE 500 ML with ROCURONIUM BROMIDE 500 MG IV PRN ×2 (17:00)
[2017-07-16] MEDS ORDERED: DIGOXIN INJ 0.5 MG/2 ML AMPULE IV ONE (17:00)
[2017-07-16] MEDS ORDERED: DILTIAZEM HCL INJ 25 MG/5 ML VIAL IV ONE (17:00)
--- NOTE | 2017-07-16 19:21 | PDOC PROGRESS REPORT ---
Subjective Progress Note for:: 07/16/17 Subjective:: Patient was noted to have high heart rate intermittently. I was called about it this afternoon. Patient got IV digoxin 0.25 mg extra and also got Cardizem bolus 50 mg extra.. She is now off vasopressin.. She is getting all supportive care. Hemoglobin is noted to have significant drop. Patient remains intubated, sedated, patient currently on also nocuronium drip. Chest x-ray shows increased infiltrate consistent with ARDS. Given patient's baseline severe COPD with emphysema, prognosis is going to be extremely poor. Medications reviewed. Reason For Visit: ACUTE ON CHRONIC RESPIRATORY FAILURE SECONDARY TO Physical Exam Vital Signs: Temp Pulse Resp BP Pulse Ox 99.3 F 97 16 116/62 92 07/16/17 18:29 07/16/17 18:00 07/16/17 18:29 07/16/17 18:29 07/16/17 18:29 Intake & Output 07/15/17 07/16/17 07/17/17 06:59 06:59 06:59 Intake Total 2497 1576 1807 Output Total 1175 1870 1000 Balance 1322 -294 807 Weight 68.3 kg 68.3 kg Exam: GENERAL: well-nourished and in no acute distress. Patient is intubated and sedated. Orientation cannot be checked. Patient noted to have increased respiratory rate. HEAD: Atraumatic, normocephalic. EYES: Pupils equal round and reactive to light, extraocular movements could not be checked, sclera anicteric, conjunctiva are normal. ENT: TMs normal, nares patent, oropharynx clear without exudates. Moist mucous membranes. No oral ulcerations or bleeding gums noted NECK: supple without lymphadenopathy or JVD. Trachea is central. No cervical or axillary lymphadenopathy noted. Carotids are 2+ LUNGS: Breath sounds mostly clear to auscultation patient is noted to have bibasal crackles at the extreme bases CHEST: Palpation of the chest wall shows no significant chest wall tenderness or abnormalities. 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 ABDOMEN: Soft, no significant tenderness appreciated, normoactive bowel sounds. No guarding, no rebound. No rigidity noted . No masses appreciated. EXTREMITIES: Pedal pulses are 1-2+, no calf tenderness noted, 1+ pedal edema noted. No clubbing or cyanosis. NEUROLOGICAL: The patient cannot participate in the neurological exam but no facial asymmetry noted. Extremities slightly hypotonic PSYCH: This cannot be evaluated. Patient cannot participate. SKIN: No significant ecchymosis, rash, or signs of pruritus noted. MUSCULOSKELETAL EXAM: No significant joint swelling noted. Patient cannot participate in musculoskeletal exam Results Laboratory Results: 07/16/17 04:20 07/16/17 10:10 07/14/17 07/16/17 07/16/17 11:08 04:20 04:20 WBC 12.0 H RBC 3.30 L Hgb 8.4 L Hct 26.4 L MCV 80 MCH 25.6 L MCHC 32.0 RDW 21.3 H Plt Count 236 Seg Neutrophils % Not Reportable Lymphocytes % Not Reportable Monocytes % Not Reportable Eosinophils % Not Reportable Basophils % Not Reportable Absolute Neutrophils Not Reportable Absolute Lymphocytes Not Reportable Absolute Monocytes Not Reportable Absolute Eosinophils Not Reportable Absolute Basophils Not Reportable Carbonic Acid HCO3/H2CO3 Ratio ABG pH ABG pCO2 ABG pO2 ABG HCO3 ABG O2 Saturation ABG Base Excess FiO2 Sodium 144.5 Potassium 4.1 Chloride 108 H Carbon Dioxide 30 Anion Gap 7 BUN 18 Creatinine 0.59 Est GFR ( Amer) > 60 Est GFR (Non-Af Amer) > 60 Glucose 235 H Calcium 8.7 Magnesium 2.1 Transferrin 154 L Total Bilirubin 0.2 AST 15 ALT 35 Alkaline Phosphatase 60 Total Protein 4.7 L Albumin 2.5 L 07/16/17 07/16/17 04:20 10:10 WBC RBC Hgb Hct MCV MCH MCHC RDW Plt Count Seg Neutrophils % Lymphocytes % Monocytes % Eosinophils % Basophils % Absolute Neutrophils Absolute Lymphocytes Absolute Monocytes Absolute Eosinophils Absolute Basophils Carbonic Acid 1.63 H HCO3/H2CO3 Ratio 17:1 ABG pH 7.34 L ABG pCO2 54.0 H ABG pO2 70.4 L ABG HCO3 28.7 H ABG O2 Saturation 93.0 L ABG Base Excess 2.4 FiO2 50% Sodium Potassium Chloride Carbon Dioxide Anion Gap BUN Creatinine 0.52 Est GFR ( Amer) > 60 Est GFR (Non-Af Amer) > 60 Glucose Calcium Magnesium Transferrin Total Bilirubin AST ALT Alkaline Phosphatase Total Protein Albumin 07/13/17 07/13/17 07/13/17 00:19 06:30 12:23 Troponin I 0.140 0.097 0.073 Impressions: Chest/Abdomen CTA 07/14/17 00:00 IMPRESSION: 1. No pulmonary emboli. 2. Airspace opacities in the left upper lobe and left lower lobe, may represent pneumonia. CT thorax after treatment recommended to ensure resolution and exclude neoplasm. 3. Emphysema. Mild mediastinal adenopathy. 4. Small pericardial effusion. 5. Heterogeneous appearance of the thyroid gland. This can be better evaluated dedicated ultrasound. 6. Trace ascites. Pericholecystic fluid, may be secondary to the ascites versus acute cholecystitis. Chest X-Ray 07/16/17 00:00 IMPRESSION: Left upper and lower lobe pneumonia. No pneumothorax. No significant change. Assessment & Plan - Diagnosis (1) Atrial fibrillation and flutter Is this a current diagnosis for this admission?: Yes (2) Febrile illness Is this a current diagnosis for this admission?: Yes (3) Acute and chronic respiratory failure Qualifiers: Respiratory failure complication: hypoxia Qualified Code(s): J96.21 - Acute and chronic respiratory failure with hypoxia (4) COPD exacerbation Is this a current diagnosis for this admission?: Yes (5) DM type 2 (diabetes mellitus, type 2) Qualifiers: Diabetes mellitus complication status: with unspecified complications Diabetes mellitus half-way insulin use: unspecified adjunct faculty for medical terminology insulin use status Qualified Code(s): E11.8 - Type 2 diabetes mellitus with unspecified complications Is this a current diagnosis for this admission?: Yes (6) Coronary artery disease Qualifiers: Coronary Disease-Associated Artery/Lesion type: [place] artery Associated angina: without angina Is this a current diagnosis for this admission?: Yes (7) Sepsis Qualifiers: Sepsis type: sepsis due to unspecified organism Qualified Code(s): A41.9 - Sepsis, unspecified organism Is this a current diagnosis for this admission?: Yes (8) Hypotension (arterial) Qualifiers: Hypotension type: unspecified hypotension type Qualified Code(s): I95.9 - Hypotension, unspecified Is this a current diagnosis for this admission?: Yes - Notes Notes: Patient remains critically ill and extremely sick. Patient's 2D echocardiogram had shown relatively well-preserved LVEF and RVEF. It seems patient's predominant problem is pulmonary with severe emphysema and now with ARDS. Patient does have A. fib flutter but rate has been reasonably well-controlled. If patient decompensates cardiac green then cardioversion will be attempted. Please note that patient has not been on any chronic anticoagulation this admission because of dropping hemoglobin. Troponin I elevation: Troponin I is elevated and most likely related to severe hypoxemia, supply demand mismatch from A. fib with rapid ventricular response, hypotension and sepsis. Ischemia workup not planned. Atrial flutter fibrillation: Recommend rate control with Cardizem as patient has severe COPD and emphysema. Could use very selective beta 1 blockers if needed however currently being avoided and not given although standing order set there. Recommend also digoxin for rate control. Patient also was started on Multaq predominantly for rate control. Patient also on Cardizem drip. Patient has low chads score of either 1 or 2. Patient is noted to be diabetic. Currently patient is anemic and had drop in hemoglobin. Decision regarding chronic anticoagulation is being deferred for the time being. Continue with DVT prophylaxis. Acute on chronic respiratory failure with hypoxemia and also hypercarbia. Review of chart shows that patient has severe emphysema. Patient seen by assistant account executive. Febrile illness: Patient was noted to have some chills in the ER. Subsequently was noted to have high temperature. Continue broad-spectrum antibiotics. Sepsis: Feel that patient most likely has sepsis which is also causing hypotension. Currently no longer on vasopressin. Pulmonary status seems to be worsening from ARDS. Hypotension: Most likely related to sepsis and relative hypovolemia. Blood pressure now improved. Patient off vasopressin drip. 2D echo was technically difficult but shows well-preserved LV and RV EF. No significant valvular stenosis noted.. COPD with exacerbation: Continue with aggressive steroids and bronchodilator therapy. Xopenex preferred. Diabetes: Recommend good control but avoid any hypo-or hyperglycemia. Coronary artery disease: Patient is noted to have CAD on chart review. At this point EKG not showing any acute ST-T wave changes. Troponins noted to be high and is probably related to acute respiratory failure with hypoxemia and possibly underlying sepsis. - Time Time with patient: Greater than 35 minutes - Because of end-stage lung disease, prognosis is on the poor side. Discussed with hospitalist and nurses. Dr. Aviles similar to cover from tonight and tomorrow. Medications reviewed and adjusted accordingly: Yes
--- NOTE | 2017-07-16 19:42 | Progress Note ---
Provider Note Provider Note: Spoke to pt's son about pt's condition. Explained different outcomes about pt' s current medical condition. I discussed that son consider making pt DNR due to End stage lung disease. Pt's son states that he will make a decision about her code status possibly tonight.
[2017-07-17] MEDS: INSULIN LISPRO 100 UNIT/ML 3 ML VIAL SUBCUT PRN ×2 (01:21→23:28)
[2017-07-17] MEDS: MIDAZOLAM HCL 50 MG/100 ML RTUINJ IV PRN ×3 (02:43→21:35)
[2017-07-17] MEDS: LEVALBUTEROL HCL NEB 1.25 MG/3 ML AMPUL NEB SCH ×5 (04:05→20:30)
[2017-07-17 05:12] LABS: ARTERIAL BLOOD BASE EXCESS 2.8 mmol/L; ARTERIAL BLOOD H2CO3 2.34 mmol/L (1.05-1.35); ARTERIAL BLOOD O2 SATURATION 86.8 % (94-98); ARTERIAL BLOOD PH 7.23 (7.35-7.45); ARTERIAL BLOOD PO2 63.1 mmHg (80-100); ARTERIAL BLOOD TOTAL CO2 34.3 mmol/L (21-25)
[2017-07-17 05:13] LABS: ARTERIAL BLOOD FIO2 85%
[2017-07-17 05:14] LABS: ARTERIAL BLOOD PCO2 77.7 mmHg (35-45)
[2017-07-17] MEDS ORDERED: DIGOXIN INJ 0.5 MG/2 ML AMPULE IV ONE (06:00)
[2017-07-17] MEDS: METHYLPREDNISOLONE INJ 125 MG/2 ML SDV IV SCH ×4 (06:20→23:27)
[2017-07-17] MEDS: PROPOFOL 100 ML IV PRN ×4 (06:22→22:39)
--- NOTE | 2017-07-17 07:51 | RADIOLOGY REPORT (SQ) ---
EXAM DESCRIPTION: CHEST SINGLE VIEW CLINICAL HISTORY: 56 years, Female, ETT and NG placement verification COMPARISON: 07/16/17. NUMBER OF VIEWS: 1 LIMITATIONS: As below. FINDINGS: Severe airspace opacity of the left mid and and lower lung lópez, left lung base clipped off the image, no pneumothorax, normal cardiac silhouette, atherosclerosis, adequate appearing endotracheal tube, likely adequate enteric tube obscured distally, and adequate appearing right subclavian central line tip at the cavoatrial junction. IMPRESSION: Worsened left pulmonary opacities.
[2017-07-17] MEDS: BUDESONIDE NEB 0.5 MG/2 ML AMPUL NEB SCH ×2 (08:28→20:30)
[2017-07-17 08:43] LABS: HEMATOCRIT 27.6 % (36.0-47.0); HEMOGLOBIN 8.9 g/dL (12.0-15.5); MEAN CORPUSCULAR HEMOGLOBIN 26.1 pg (27.0-33.4); MEAN CORPUSCULAR HGB CONC 32.2 g/dL (32.0-36.0); MEAN CORPUSCULAR VOLUME 81 fl (80-97); PLATELET COUNT 197 10^3/uL (150-450); RED BLOOD COUNT 3.41 10^6/uL (3.72-5.28); RED CELL DISTRIBUTION WIDTH 21.3 % (11.5-14.0); WHITE BLOOD COUNT 8.7 10^3/uL (4.0-10.5)
[2017-07-17] MEDS ORDERED: FUROSEMIDE INJ/PF 20 MG/2 ML SDV IV ONE (08:56)
[2017-07-17 09:06] LABS: ALANINE AMINOTRANSFERASE 34 U/L (9-52); ALBUMIN 2.2 g/dL (3.5-5.0); ALKALINE PHOSPHATASE 57 U/L (38-126); ANION GAP 6 (5-19); ASPARTATE AMINO TRANSFERASE 13 U/L (14-36); BILIRUBIN,DIRECT 0.2 mg/dL (0.0-0.4); BILIRUBIN,TOTAL 0.2 mg/dL (0.2-1.3); BLOOD UREA NITROGEN 17 mg/dL (7-20); CALCIUM 8.6 mg/dL (8.4-10.2); CARBON DIOXIDE 31 mmol/L (22-30); CHLORIDE 110 mmol/L (98-107); GLUCOSE 242 mg/dL (75-110); MAGNESIUM 2.2 mg/dL (1.6-2.3); POTASSIUM 4.7 mmol/L (3.6-5.0); SODIUM 147.1 mmol/L (137-145); TOTAL PROTEIN 4.1 g/dL (6.3-8.2)
[2017-07-17 09:16] LABS: ABSOLUTE LYMPHOCYTES# (MANUAL) 0.1 10^3/uL (0.5-4.7); ABSOLUTE NEUTROPHILS# (MANUAL) 8.6 10^3/uL (1.7-8.2); BAND NEUTROPHILS % (MANUAL) 5 % (3-5); BASOPHILS % (MANUAL) 0 % (0-2); EOSINOPHILS % (MANUAL) 0 % (0-6); LYMPHOCYTES % (MANUAL) 1 % (13-45); MONOCYTES % (MANUAL) 0 % (3-13); SEGMENTED NEUTROPHILS % (MAN) 94 % (42-78); TOTAL CELLS COUNTED 100
[2017-07-17 09:18] LABS: ANISOCYTOSIS 3+; PLATELET COMMENT ADEQUATE
[2017-07-17] MEDS ORDERED: INSULIN GLARGINE,HUM.REC.ANLOG 1,000 UNIT/10 ML UNIT SUBCUT SCH (10:00)
[2017-07-17] MEDS: CEFEPIME 1 GM/D5W RTU 1 GM/50 ML RTUPB IV SCH ×2 (11:31→21:34)
[2017-07-17] MEDS: IRON SUCROSE COMPLEX INJ/PF 100 MG/5 ML SDV IV SCH (11:32)
[2017-07-17] MEDS: DIGOXIN 0.125 MG TABLET PO SCH (11:33)
[2017-07-17] MEDS: DRONEDARONE HYDROCHLORIDE 400 MG TABLET PO SCH ×2 (11:33→21:34)
[2017-07-17] MEDS: HEPARIN SOD (PORCINE) 5,000 UNIT/ML 1 ML SYRINGE SUBCUT SCH ×2 (12:42→21:36)
[2017-07-17] MEDS: ACETAMINOPHEN 650 MG SUPP.RECT PR PRN ×2 (13:34→18:03)
[2017-07-17] MEDS: DILTIAZEM HCL/D5W 125 MG/125 ML RTUINJ IV PRN ×2 (13:34→21:35)
--- NOTE | 2017-07-17 14:04 | PDOC PROGRESS REPORT ---
Subjective Progress Note for:: 07/17/17 Subjective:: Patient seen on rounds. She is orally intubated and sedated at the present time. She is not responding to any verbal or tactile stimulus. There is presently no family at the bedside. Nursing report increased oxygenation needs overnight. She is now presently on 85% FiO2. Dr. Talbot was identified and changes were made. Case was discussed with her son last evening by hospitalist caring for her. He discussed her overall poor prognosis with end-stage lung disease. Reason For Visit: ACUTE ON CHRONIC RESPIRATORY FAILURE SECONDARY TO Physical Exam Vital Signs: Temp Pulse Resp BP Pulse Ox 100.6 F H 123 H 20 132/75 H 97 07/17/17 12:00 07/17/17 12:45 07/17/17 12:45 07/17/17 12:00 07/17/17 12:45 Intake & Output 07/16/17 07/17/17 07/18/17 06:59 06:59 06:59 Intake Total 1576 4064 Output Total 1870 1800 385 Balance -294 2264 -385 Weight 68.3 kg 77.7 kg General appearance: PRESENT: no acute distress, thin, well-developed, well- nourished Head exam: PRESENT: atraumatic, normocephalic Eye exam: PRESENT: conjunctiva pink, EOMI, PERRLA. ABSENT: scleral icterus Ear exam: PRESENT: normal external ear exam Mouth exam: PRESENT: moist, tongue midline Neck exam: ABSENT: carotid bruit, JVD, lymphadenopathy, thyromegaly Respiratory exam: PRESENT: decreased breath sounds - left base, rhonchi, symmetrical, unlabored Cardiovascular exam: PRESENT: RRR. ABSENT: diastolic murmur, rubs, systolic murmur Pulses: PRESENT: normal dorsalis pedis pul Vascular exam: PRESENT: normal capillary refill GI/Abdominal exam: PRESENT: normal bowel sounds, soft. ABSENT: distended, guarding, mass, organolmegaly, rebound, tenderness Rectal exam: PRESENT: deferred Extremities exam: PRESENT: full ROM, +2 edema - bilateral lower extremities. ABSENT: calf tenderness, clubbing, pedal edema Musculoskeletal exam: PRESENT: full ROM, normal inspection Neurological exam: PRESENT: other - intubated and sedated Psychiatric exam: PRESENT: other - intubated and sedated Skin exam: PRESENT: dry, intact, warm. ABSENT: cyanosis, rash Results Laboratory Results: 07/17/17 08:15 07/17/17 08:15 07/14/17 07/17/17 07/17/17 11:08 05:00 08:15 WBC 8.7 RBC 3.41 L Hgb 8.9 L Hct 27.6 L MCV 81 MCH 26.1 L MCHC 32.2 RDW 21.3 H Plt Count 197 Seg Neutrophils % Not Reportable Lymphocytes % Not Reportable Monocytes % Not Reportable Eosinophils % Not Reportable Basophils % Not Reportable Absolute Neutrophils Not Reportable Absolute Lymphocytes Not Reportable Absolute Monocytes Not Reportable Absolute Eosinophils Not Reportable Absolute Basophils Not Reportable Carbonic Acid 2.34 H HCO3/H2CO3 Ratio 13:1 ABG pH 7.23 L ABG pCO2 77.7 H* ABG pO2 63.1 L ABG HCO3 32.0 H ABG O2 Saturation 86.8 L ABG Base Excess 2.8 FiO2 85% Sodium Potassium Chloride Carbon Dioxide Anion Gap BUN Creatinine Est GFR ( Amer) Est GFR (Non-Af Amer) Glucose Calcium Phosphorus Magnesium Transferrin 154 L Total Bilirubin AST ALT Alkaline Phosphatase Total Protein Albumin 07/17/17 08:15 WBC RBC Hgb Hct MCV MCH MCHC RDW Plt Count Seg Neutrophils % Lymphocytes % Monocytes % Eosinophils % Basophils % Absolute Neutrophils Absolute Lymphocytes Absolute Monocytes Absolute Eosinophils Absolute Basophils Carbonic Acid HCO3/H2CO3 Ratio ABG pH ABG pCO2 ABG pO2 ABG HCO3 ABG O2 Saturation ABG Base Excess FiO2 Sodium 147.1 H Potassium 4.7 Chloride 110 H Carbon Dioxide 31 H Anion Gap 6 BUN 17 Creatinine 0.50 L Est GFR ( Amer) > 60 Est GFR (Non-Af Amer) > 60 Glucose 242 H Calcium 8.6 Phosphorus 3.0 Magnesium 2.2 Transferrin Total Bilirubin 0.2 AST 13 L ALT 34 Alkaline Phosphatase 57 Total Protein 4.1 L Albumin 2.2 L 07/13/17 07/13/17 07/13/17 00:19 06:30 12:23 Troponin I 0.140 0.097 0.073 NT-Pro-B Natriuret Pep 07/17/17 08:15 Troponin I NT-Pro-B Natriuret Pep 724 Impressions: Chest/Abdomen CTA 07/14/17 00:00 IMPRESSION: 1. No pulmonary emboli. 2. Airspace opacities in the left upper lobe and left lower lobe, may represent pneumonia. CT thorax after treatment recommended to ensure resolution and exclude neoplasm. 3. Emphysema. Mild mediastinal adenopathy. 4. Small pericardial effusion. 5. Heterogeneous appearance of the thyroid gland. This can be better evaluated dedicated ultrasound. 6. Trace ascites. Pericholecystic fluid, may be secondary to the ascites versus acute cholecystitis. Chest X-Ray 07/17/17 06:00 IMPRESSION: Worsened left pulmonary opacities. Assessment & Plan - Diagnosis (1) Acute on chronic respiratory failure with hypoxia and hypercapnia Is this a current diagnosis for this admission?: Yes Plan: Patient is currently on100% FIO2 with SPO2 of 92%. She is hypercapneic on current settings. Worsening left lower lobe infiltrates on cxr. Leucocytosis has resolved. Will discuss with pulmonary . Reculture with temp spike (2) Sepsis Qualifiers: Sepsis type: sepsis due to unspecified organism Qualified Code(s): A41.9 - Sepsis, unspecified organism Is this a current diagnosis for this admission?: Yes Plan: Resolved. Leucocytosis , fever and hypotension has resolved (3) Hypotension (arterial) Qualifiers: Hypotension type: unspecified hypotension type Qualified Code(s): I95.9 - Hypotension, unspecified Is this a current diagnosis for this admission?: Yes Plan: Vasopressin has been weaned off. Intensive antihypertensive (4) Leukocytosis Is this a current diagnosis for this admission?: Yes Plan: Resolved with antibiotics (5) Supraventricular tachycardia Is this a current diagnosis for this admission?: Yes Plan: Cardiology is pending (6) Acute on chronic diastolic (congestive) heart failure Is this a current diagnosis for this admission?: Yes Plan: She appears volume overloaded (7) Atrial fibrillation and flutter Is this a current diagnosis for this admission?: Yes Plan: On diltiazem cardiology is following (9) DVT prophylaxis Is this a current diagnosis for this admission?: Yes (10) Diabetes Qualifiers: Diabetes mellitus type: type 2 Plan: Continue current treatment (11) Haemophilus influenzae infection Is this a current diagnosis for this admission?: Yes Plan: Continue current antibiotics - Time Time Spent with patient: 35 or more minutes Total Critical Time (Minutes): 25 Medications reviewed and adjusted accordingly: Yes
[2017-07-17 15:09] LABS: ARTERIAL BLOOD BASE EXCESS 5.3 mmol/L; ARTERIAL BLOOD H2CO3 2.18 mmol/L (1.05-1.35); ARTERIAL BLOOD HCO3 33.6 mmol/L (20-26); ARTERIAL BLOOD O2 SATURATION 85.3 % (94-98); ARTERIAL BLOOD PH 7.29 (7.35-7.45); ARTERIAL BLOOD PO2 57.4 mmHg (80-100); ARTERIAL BLOOD TOTAL CO2 35.8 mmol/L (21-25)
[2017-07-17 15:15] LABS: ARTERIAL BLOOD FIO2 100%
[2017-07-17 15:18] LABS: ARTERIAL BLOOD PCO2 72.3 mmHg (35-45)
[2017-07-17] MEDS: INSULIN GLARGINE,HUM.REC.ANLOG 1,000 UNIT/10 ML UNIT SUBCUT SCH (15:55)
[2017-07-17] MEDS ORDERED: BUMETANIDE INJ/PF 1 MG/4 ML SDV IV ONE ×2 (17:30→18:30)
[2017-07-17] MEDS ORDERED: DEXTROSE 5%-WATER 500 ML with AMIODARONE HCL 900 MG IV PRN ×2 (18:00)
[2017-07-17] MEDS: NORMAL SALINE 1000 ML 1,000 ML IV PRN (18:04)
--- NOTE | 2017-07-17 19:48 | PDOC PROGRESS REPORT ---
Subjective Progress Note for:: 07/17/17 Subjective:: Patient remains critically ill. There is difficulty in ventilating patient with progressive findings indicative of ARDS. Patient currently noted to be in atrial flutter with variable conduction with heart rate of heart rate ranging from 90-110. Patient remains intubated, sedated, patient however looks comfortable and in acute distress. Medications reviewed. Reason For Visit: ACUTE ON CHRONIC RESPIRATORY FAILURE SECONDARY TO Physical Exam Vital Signs: Temp Pulse Resp BP Pulse Ox 99.9 F 104 H 26 H 118/65 87 L 07/17/17 18:16 07/17/17 18:00 07/17/17 18:16 07/17/17 18:15 07/17/17 18:16 Intake & Output 07/16/17 07/17/17 07/18/17 06:59 06:59 06:59 Intake Total 1576 4064 952 Output Total 1870 1800 1120 Balance -294 2264 -168 Weight 68.3 kg 77.7 kg Exam: GENERAL: well-nourished and in no acute distress. Patient is intubated and sedated. Orientation cannot be checked HEAD: Atraumatic, normocephalic. EYES: Pupils equal round and reactive to light, extraocular movements could not be checked, sclera anicteric, conjunctiva are normal. ENT: TMs normal, nares patent, oropharynx clear without exudates. Moist mucous membranes. No oral ulcerations or bleeding gums noted NECK: supple without lymphadenopathy or JVD. Trachea is central. No cervical or axillary lymphadenopathy noted. Carotids are 2+ LUNGS: Breath sounds mostly clear to auscultation patient is noted to have bibasal crackles at the extreme bases CHEST: Palpation of the chest wall shows no significant chest wall tenderness or abnormalities. 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 ABDOMEN: Soft, no significant tenderness appreciated, normoactive bowel sounds. No guarding, no rebound. No rigidity noted . No masses appreciated. EXTREMITIES: Pedal pulses are 1-2+, no calf tenderness noted, 1+ pedal edema noted. No clubbing or cyanosis. NEUROLOGICAL: The patient cannot participate in the neurological exam but no facial asymmetry noted. Extremities slightly hypotonic PSYCH: This cannot be evaluated. Patient cannot participate. SKIN: No significant ecchymosis, rash, or signs of pruritus noted. MUSCULOSKELETAL EXAM: No significant joint swelling noted. Patient cannot participate in musculoskeletal exam Results Laboratory Results: 07/17/17 08:15 07/17/17 08:15 07/17/17 07/17/17 07/17/17 05:00 08:15 08:15 WBC 8.7 RBC 3.41 L Hgb 8.9 L Hct 27.6 L MCV 81 MCH 26.1 L MCHC 32.2 RDW 21.3 H Plt Count 197 Seg Neutrophils % Not Reportable Lymphocytes % Not Reportable Monocytes % Not Reportable Eosinophils % Not Reportable Basophils % Not Reportable Absolute Neutrophils Not Reportable Absolute Lymphocytes Not Reportable Absolute Monocytes Not Reportable Absolute Eosinophils Not Reportable Absolute Basophils Not Reportable Carbonic Acid 2.34 H HCO3/H2CO3 Ratio 13:1 ABG pH 7.23 L ABG pCO2 77.7 H* ABG pO2 63.1 L ABG HCO3 32.0 H ABG O2 Saturation 86.8 L ABG Base Excess 2.8 FiO2 85% Sodium 147.1 H Potassium 4.7 Chloride 110 H Carbon Dioxide 31 H Anion Gap 6 BUN 17 Creatinine 0.50 L Est GFR ( Amer) > 60 Est GFR (Non-Af Amer) > 60 Glucose 242 H Calcium 8.6 Phosphorus 3.0 Magnesium 2.2 Total Bilirubin 0.2 AST 13 L ALT 34 Alkaline Phosphatase 57 Total Protein 4.1 L Albumin 2.2 L 07/17/17 14:50 WBC RBC Hgb Hct MCV MCH MCHC RDW Plt Count Seg Neutrophils % Lymphocytes % Monocytes % Eosinophils % Basophils % Absolute Neutrophils Absolute Lymphocytes Absolute Monocytes Absolute Eosinophils Absolute Basophils Carbonic Acid 2.18 H HCO3/H2CO3 Ratio 15:1 ABG pH 7.29 L ABG pCO2 72.3 H* ABG pO2 57.4 L ABG HCO3 33.6 H ABG O2 Saturation 85.3 L ABG Base Excess 5.3 FiO2 100% Sodium Potassium Chloride Carbon Dioxide Anion Gap BUN Creatinine Est GFR ( Amer) Est GFR (Non-Af Amer) Glucose Calcium Phosphorus Magnesium Total Bilirubin AST ALT Alkaline Phosphatase Total Protein Albumin 07/13/17 07/13/17 07/13/17 00:19 06:30 12:23 Troponin I 0.140 0.097 0.073 NT-Pro-B Natriuret Pep 07/17/17 08:15 Troponin I NT-Pro-B Natriuret Pep 724 EKG Comments: Atrial flutter with variable conduction Impressions: Chest/Abdomen CTA 07/14/17 00:00 IMPRESSION: 1. No pulmonary emboli. 2. Airspace opacities in the left upper lobe and left lower lobe, may represent pneumonia. CT thorax after treatment recommended to ensure resolution and exclude neoplasm. 3. Emphysema. Mild mediastinal adenopathy. 4. Small pericardial effusion. 5. Heterogeneous appearance of the thyroid gland. This can be better evaluated dedicated ultrasound. 6. Trace ascites. Pericholecystic fluid, may be secondary to the ascites versus acute cholecystitis. Chest X-Ray 07/17/17 06:00 IMPRESSION: Worsened left pulmonary opacities. 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: unspecified intermediate insulin use status Qualified Code(s): E11.8 - Type 2 diabetes mellitus with unspecified complications Is this a current diagnosis for this admission?: Yes (6) Coronary artery disease Qualifiers: Coronary Disease-Associated Artery/Lesion type: [place] artery Associated angina: without angina Is this a current diagnosis for this admission?: Yes (7) Sepsis Qualifiers: Sepsis type: sepsis due to unspecified organism Qualified Code(s): A41.9 - Sepsis, unspecified organism Is this a current diagnosis for this admission?: Yes (8) Hypotension (arterial) Qualifiers: Hypotension type: unspecified hypotension type Qualified Code(s): I95.9 - Hypotension, unspecified Is this a current diagnosis for this admission?: Yes - Notes Notes: Patient remains critically ill and extremely sick. Patient remains in significant respiratory distress being intubated and ventilated. There is some difficulty in maintaining patient's ventilation and oxygenation. Patient has severe end-stage COPD. No new recommendations but will continue to follow. Believe that patient is unlikely to do well therefore may need to readdress the CODE STATUS. Patient's 2D echocardiogram had shown relatively well-preserved LVEF and RVEF. It seems patient's predominant problem is pulmonary with severe emphysema and now with ARDS. Patient does have A. fib flutter but rate has been reasonably well-controlled. If patient decompensates cardiac green then cardioversion will be attempted. Please note that patient has not been on any chronic anticoagulation this admission because of dropping hemoglobin. Troponin I elevation: Troponin I is elevated and most likely related to severe hypoxemia, supply demand mismatch from A. fib with rapid ventricular response, hypotension and sepsis. Ischemia workup not planned. Atrial flutter fibrillation: Recommend rate control with Cardizem as patient has severe COPD and emphysema. Could use very selective beta 1 blockers if needed however currently being avoided and not given although standing order set there. Recommend also digoxin for rate control. Patient also was started on Multaq predominantly for rate control. Patient also on Cardizem drip. Patient has low chads score of either 1 or 2. Patient is noted to be diabetic. Currently patient is anemic and had drop in hemoglobin. Decision regarding chronic anticoagulation is being deferred for the time being. Continue with DVT prophylaxis. Acute on chronic respiratory failure with hypoxemia and also hypercarbia. Review of chart shows that patient has severe emphysema. Patient seen by lapidarist. Febrile illness: Patient was noted to have some chills in the ER. Subsequently was noted to have high temperature. Continue broad-spectrum antibiotics. Sepsis: Feel that patient most likely has sepsis which is also causing hypotension. Currently no longer on vasopressin. Pulmonary status seems to be worsening from ARDS. Hypotension: Most likely related to sepsis and relative hypovolemia. Blood pressure now improved. Patient off vasopressin drip. 2D echo was technically difficult but shows well-preserved LV and RV EF. No significant valvular stenosis noted.. COPD with exacerbation: Continue with aggressive steroids and bronchodilator therapy. Xopenex preferred. Diabetes: Recommend good control but avoid any hypo-or hyperglycemia. Coronary artery disease: Patient is noted to have CAD on chart review. At this point EKG not showing any acute ST-T wave changes. Troponins noted to be high and is probably related to acute respiratory failure with hypoxemia and possibly underlying sepsis. - Time Time with patient: Greater than 35 minutes - CODE STATUS was discussed, patient remains full code. Surrogate decision-maker unchanged. Multiple medical problems were addressed. More than 50% of the time spent coordinating care, discussing management plans with involved caregivers. Management plans discussed with involved personnels. Medical decision making was of moderate to high complexity, patient's has multiple comorbidities. Medications reviewed and adjusted accordingly: Yes
[2017-07-17] MEDS: PANTOPRAZOLE SODIUM 40 MG VIAL IV SCH (21:34)
[2017-07-18] MEDS: LEVALBUTEROL HCL NEB 1.25 MG/3 ML AMPUL NEB SCH ×6 (00:09→20:00)
[2017-07-18] MEDS ORDERED: DILTIAZEM HCL INJ 25 MG/5 ML VIAL ONE (05:21)
[2017-07-18] MEDS: METHYLPREDNISOLONE INJ 125 MG/2 ML SDV IV SCH ×3 (05:28→17:17)
[2017-07-18] MEDS: DILTIAZEM HCL/D5W 125 MG/125 ML RTUINJ IV PRN (05:30)
[2017-07-18 05:59] LABS: ARTERIAL BLOOD BASE EXCESS 7.2 mmol/L; ARTERIAL BLOOD FIO2 100%; ARTERIAL BLOOD HCO3 36.1 mmol/L (20-26); ARTERIAL BLOOD O2 SATURATION 80.9 % (94-98); ARTERIAL BLOOD PH 7.26 (7.35-7.45); ARTERIAL BLOOD PO2 53.7 mmHg (80-100); ARTERIAL BLOOD TOTAL CO2 38.6 mmol/L (21-25)
[2017-07-18 06:02] LABS: MEAN CORPUSCULAR HEMOGLOBIN 25.7 pg (27.0-33.4); MEAN CORPUSCULAR HGB CONC 31.2 g/dL (32.0-36.0); MEAN CORPUSCULAR VOLUME 83 fl (80-97); PLATELET COUNT 179 10^3/uL (150-450); RED BLOOD COUNT 3.51 10^6/uL (3.72-5.28); RED CELL DISTRIBUTION WIDTH 21.7 % (11.5-14.0)
[2017-07-18 06:13] LABS: ALANINE AMINOTRANSFERASE 31 U/L (9-52); ALBUMIN 2.4 g/dL (3.5-5.0); ALKALINE PHOSPHATASE 61 U/L (38-126); ANION GAP 7 (5-19); ASPARTATE AMINO TRANSFERASE 18 U/L (14-36); CALCIUM 8.4 mg/dL (8.4-10.2); CARBON DIOXIDE 33 mmol/L (22-30); CHLORIDE 108 mmol/L (98-107); GLUCOSE 303 mg/dL (75-110); MAGNESIUM 2.1 mg/dL (1.6-2.3); POTASSIUM 4.6 mmol/L (3.6-5.0); SODIUM 148.3 mmol/L (137-145); TOTAL PROTEIN 4.6 g/dL (6.3-8.2)
[2017-07-18 06:19] LABS: BILIRUBIN,TOTAL < 0.1 mg/dL (0.2-1.3)
[2017-07-18 06:29] LABS: BLOOD UREA NITROGEN 37 mg/dL (7-20)
[2017-07-18 06:40] LABS: BAND NEUTROPHILS % (MANUAL) 8 % (3-5); BASOPHILS % (MANUAL) 0 % (0-2); EOSINOPHILS % (MANUAL) 0 % (0-6); LYMPHOCYTES % (MANUAL) 0 % (13-45); MONOCYTES % (MANUAL) 0 % (3-13); NUCLEATED RED BLOOD CELLS 3 /100 WBC (0); SEGMENTED NEUTROPHILS % (MAN) 92 % (42-78); TOTAL CELLS COUNTED 100
[2017-07-18 06:43] LABS: ANISOCYTOSIS 2+; HYPOCHROMASIA SLIGHT; OVALOCYTES SLIGHT; PLATELET COMMENT ADEQUATE; POIKILOCYTOSIS 1+; POLYCHROMASIA SLIGHT; SCHISTOCYTES SLIGHT; TARGET CELLS 1+
--- NOTE | 2017-07-18 06:51 | RADIOLOGY REPORT (SQ) ---
EXAM DESCRIPTION: CHEST SINGLE VIEW COMPLETED DATE/TIME: 07/18/2017 6:33 am REASON FOR STUDY: resp failure COMPARISON: Chest x-ray 07/17/2017. CT chest 07/14/2017. EXAM PARAMETERS: NUMBER OF VIEWS: One view TECHNIQUE: Single frontal radiograph of the chest. RADIATION DOSE: N/A LIMITATIONS: None. FINDINGS: TEMPORARY SUPPORT DEVICES:ETT in expected location. NG tube courses below the left julianne-d iaphragm in to the stomach. Central venous access catheter tip is in expected location. LUNGS AND PLEURA: Persistent large airspace opacity within the left lung. Consolidation with air bro nchograms at the left lung base. Small left pleural effusion. The right lung is grossly clear. No pneumothorax. MEDIASTINUM AND HILAR STRUCTURES: No masses. Contour normal. HEART AND VASCULAR STRUCTURES: The heart is not enlarged. No overt vascular congestion. BONES: Degenerative changes in the spine. IMPRESSION: No significant interval change in the large airspace opacity within the left lung with c onsolidation at the left lung base and a small left pleural effusion. TECHNICAL DOCUMENTATION: JOB ID: [id number] 2010 [employer]- All Rights Reserved
[2017-07-18] MEDS: INSULIN LISPRO 100 UNIT/ML 3 ML VIAL SUBCUT PRN ×2 (06:56→18:03)
[2017-07-18] MEDS: BUDESONIDE NEB 0.5 MG/2 ML AMPUL NEB SCH ×2 (08:09→20:00)
[2017-07-18] MEDS: PANTOPRAZOLE SODIUM 40 MG VIAL IV SCH ×2 (10:22→22:28)
[2017-07-18] MEDS: HEPARIN SOD (PORCINE) 5,000 UNIT/ML 1 ML SYRINGE SUBCUT SCH ×2 (10:25→22:29)
[2017-07-18] MEDS: DIGOXIN 0.125 MG TABLET PO SCH (10:31)
[2017-07-18] MEDS: IRON SUCROSE COMPLEX INJ/PF 100 MG/5 ML SDV IV SCH (10:34)
[2017-07-18] MEDS: CEFEPIME 1 GM/D5W RTU 1 GM/50 ML RTUPB IV SCH ×2 (10:36→22:29)
[2017-07-18] MEDS: DRONEDARONE HYDROCHLORIDE 400 MG TABLET PO SCH ×2 (10:36→22:29)
[2017-07-18] MEDS: INSULIN GLARGINE,HUM.REC.ANLOG 1,000 UNIT/10 ML UNIT SUBCUT SCH (10:37)
[2017-07-18] MEDS: PROPOFOL 100 ML IV PRN (12:43)
--- NOTE | 2017-07-18 16:16 | PDOC PROGRESS REPORT ---
Subjective Progress Note for:: 07/18/17 Subjective:: Patient seen on rounds. She is orally intubated and sedated at the present time. She is not responding to any verbal or tactile stimulus. There is presently no family at the bedside. Nursing report increased oxygenation needs overnight. She is now presently on 85% FiO2. Dr. Talbot was identified and changes were made. Case was discussed with her son last evening by hospitalist caring for her. He discussed her overall poor prognosis with end-stage lung disease. Reason For Visit: Patient is seen on rounds. She is orally intubated to the ventilator. She continues to be sedated on propofol and Versed. Nursing report no significant issues overnight she was admitted DNR by her family. She continues to have marginal oxygen saturations on 100% FiO2 and worsening chest x-ray. Pulmonary is following as well Physical Exam Vital Signs: Temp Pulse Resp BP Pulse Ox 99.3 F 82 20 118/57 L 82 L 07/18/17 14:00 07/18/17 14:00 07/18/17 14:00 07/18/17 14:00 07/18/17 14:00 Intake & Output 07/17/17 07/18/17 07/19/17 06:59 06:59 06:59 Intake Total 4064 1967 Output Total 1800 2190 255 Balance 2264 -223 -255 Weight 77.7 kg 70.1 kg General appearance: PRESENT: no acute distress, thin, well-developed, well- nourished Head exam: PRESENT: atraumatic, normocephalic Eye exam: PRESENT: conjunctiva pink, EOMI, PERRLA. ABSENT: scleral icterus Ear exam: PRESENT: normal external ear exam Mouth exam: PRESENT: moist, tongue midline Neck exam: ABSENT: carotid bruit, JVD, lymphadenopathy, thyromegaly Respiratory exam: PRESENT: crackles, decreased breath sounds, symmetrical, unlabored - left bases Cardiovascular exam: PRESENT: RRR. ABSENT: diastolic murmur, rubs, systolic murmur Pulses: PRESENT: normal dorsalis pedis pul Vascular exam: PRESENT: normal capillary refill GI/Abdominal exam: PRESENT: normal bowel sounds, soft. ABSENT: distended, guarding, mass, organolmegaly, rebound, tenderness Rectal exam: PRESENT: deferred Extremities exam: PRESENT: full ROM. ABSENT: calf tenderness, clubbing, pedal edema Neurological exam: PRESENT: other Psychiatric exam: PRESENT: other - intubated and sedated Skin exam: PRESENT: dry, intact, warm. ABSENT: cyanosis, rash Results Laboratory Results: 07/18/17 05:43 07/18/17 05:43 07/18/17 07/18/17 07/18/17 05:43 05:43 05:43 WBC 8.0 RBC 3.51 L Hgb 9.0 L Hct 29.0 L MCV 83 MCH 25.7 L MCHC 31.2 L RDW 21.7 H Plt Count 179 Seg Neutrophils % Not Reportable Lymphocytes % Not Reportable Monocytes % Not Reportable Eosinophils % Not Reportable Basophils % Not Reportable Absolute Neutrophils Not Reportable Absolute Lymphocytes Not Reportable Absolute Monocytes Not Reportable Absolute Eosinophils Not Reportable Absolute Basophils Not Reportable Carbonic Acid 2.50 H HCO3/H2CO3 Ratio 14:1 ABG pH 7.26 L ABG pCO2 83.0 H* ABG pO2 53.7 L ABG HCO3 36.1 H ABG O2 Saturation 80.9 L ABG Base Excess 7.2 FiO2 100% Sodium 148.3 H Potassium 4.6 Chloride 108 H Carbon Dioxide 33 H Anion Gap 7 BUN 37 H D Creatinine 1.04 Est GFR ( Amer) > 60 Est GFR (Non-Af Amer) 54 L Glucose 303 H Calcium 8.4 Magnesium 2.1 Total Bilirubin < 0.1 L AST 18 ALT 31 Alkaline Phosphatase 61 Total Protein 4.6 L Albumin 2.4 L 07/13/17 01:22 Blood Blood Culture - Final NO GROWTH IN 5 DAYS 07/13/17 00:19 Blood Blood Culture - Final NO GROWTH IN 5 DAYS 07/13/17 07/13/17 07/13/17 00:19 06:30 12:23 Troponin I 0.140 0.097 0.073 NT-Pro-B Natriuret Pep 07/17/17 08:15 Troponin I NT-Pro-B Natriuret Pep 724 Impressions: Chest/Abdomen CTA 07/14/17 00:00 IMPRESSION: 1. No pulmonary emboli. 2. Airspace opacities in the left upper lobe and left lower lobe, may represent pneumonia. CT thorax after treatment recommended to ensure resolution and exclude neoplasm. 3. Emphysema. Mild mediastinal adenopathy. 4. Small pericardial effusion. 5. Heterogeneous appearance of the thyroid gland. This can be better evaluated dedicated ultrasound. 6. Trace ascites. Pericholecystic fluid, may be secondary to the ascites versus acute cholecystitis. Chest X-Ray 07/18/17 06:00 IMPRESSION: No significant interval change in the large airspace opacity within the left lung with consolidation at the left lung base and a small left pleural effusion. Assessment & Plan - Diagnosis (1) Acute on chronic respiratory failure with hypoxia and hypercapnia Is this a current diagnosis for this admission?: Yes Plan: Patient is currently on100% FIO2 with SPO2 of 92%. She is hypercapneic on current settings. Worsening left lower lobe infiltrates on cxr. Leucocytosis has resolved. Will discuss with pulmonary . Reculture with temp spike (2) Sepsis Qualifiers: Sepsis type: sepsis due to unspecified organism Qualified Code(s): A41.9 - Sepsis, unspecified organism Is this a current diagnosis for this admission?: Yes Plan: Resolved. Leucocytosis , fever and hypotension has resolved (3) Hypotension (arterial) Qualifiers: Hypotension type: unspecified hypotension type Qualified Code(s): I95.9 - Hypotension, unspecified Is this a current diagnosis for this admission?: Yes Plan: Vasopressin has been weaned off. Intensive antihypertensive (4) Leukocytosis Is this a current diagnosis for this admission?: Yes Plan: Resolved with antibiotics (5) Supraventricular tachycardia Is this a current diagnosis for this admission?: Yes Plan: Cardiology is pending (6) Acute on chronic diastolic (congestive) heart failure Is this a current diagnosis for this admission?: Yes Plan: She appears volume overloaded (7) Atrial fibrillation and flutter Is this a current diagnosis for this admission?: Yes Plan: On diltiazem cardiology is following (9) DVT prophylaxis Is this a current diagnosis for this admission?: Yes (10) Diabetes Qualifiers: Diabetes mellitus type: type 2 Is this a current diagnosis for this admission?: Yes Plan: Continue current treatment (11) Haemophilus influenzae infection Is this a current diagnosis for this admission?: Yes Plan: Continue current antibiotics - Time Time Spent with patient: 25-34 minutes Total Critical Time (Minutes): 15 Medications reviewed and adjusted accordingly: Yes
--- NOTE | 2017-07-18 20:57 | PDOC PROGRESS REPORT ---
Subjective Progress Note for:: 07/18/17 Subjective:: Patient remains critically ill. Patient has not made much progress. CODE STATUS now switched to DNR. Patient currently noted to be in atrial flutter with variable conduction with heart rate of heart rate ranging from 90-110. Patient remains intubated, sedated, patient however looks comfortable and in acute distress. Medications reviewed. Reason For Visit: ACUTE ON CHRONIC RESPIRATORY FAILURE SECONDARY TO Physical Exam Vital Signs: Temp Pulse Resp BP Pulse Ox 99.5 F 85 20 108/59 L 88 L 07/18/17 08:00 07/18/17 08:09 07/18/17 08:09 07/18/17 08:00 07/18/17 08:09 Intake & Output 07/17/17 07/18/17 07/19/17 06:59 06:59 06:59 Intake Total 4064 1967 Output Total 1800 2190 25 Balance 2264 -223 -25 Weight 77.7 kg 70.1 kg Exam: GENERAL: well-nourished and in no acute distress. Patient is intubated and sedated. Orientation cannot be checked HEAD: Atraumatic, normocephalic. EYES: Pupils equal round and reactive to light, extraocular movements could not be checked, sclera anicteric, conjunctiva are normal. ENT: TMs normal, nares patent, oropharynx clear without exudates. Moist mucous membranes. No oral ulcerations or bleeding gums noted NECK: supple without lymphadenopathy or JVD. Trachea is central. No cervical or axillary lymphadenopathy noted. Carotids are 2+ LUNGS: Breath sounds mostly clear to auscultation patient is noted to have bibasal crackles at the extreme bases CHEST: Palpation of the chest wall shows no significant chest wall tenderness or abnormalities. 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 ABDOMEN: Soft, no significant tenderness appreciated, normoactive bowel sounds. No guarding, no rebound. No rigidity noted . No masses appreciated. EXTREMITIES: Pedal pulses are 1-2+, no calf tenderness noted, 1+ pedal edema noted. No clubbing or cyanosis. NEUROLOGICAL: The patient cannot participate in the neurological exam but no facial asymmetry noted. Extremities slightly hypotonic PSYCH: This cannot be evaluated. Patient cannot participate. SKIN: No significant ecchymosis, rash, or signs of pruritus noted. MUSCULOSKELETAL EXAM: No significant joint swelling noted. Patient cannot participate in musculoskeletal exam Results Laboratory Results: 07/18/17 05:43 07/18/17 05:43 07/17/17 07/18/17 07/18/17 14:50 05:43 05:43 WBC 8.0 RBC 3.51 L Hgb 9.0 L Hct 29.0 L MCV 83 MCH 25.7 L MCHC 31.2 L RDW 21.7 H Plt Count 179 Seg Neutrophils % Not Reportable Lymphocytes % Not Reportable Monocytes % Not Reportable Eosinophils % Not Reportable Basophils % Not Reportable Absolute Neutrophils Not Reportable Absolute Lymphocytes Not Reportable Absolute Monocytes Not Reportable Absolute Eosinophils Not Reportable Absolute Basophils Not Reportable Carbonic Acid 2.18 H 2.50 H HCO3/H2CO3 Ratio 15:1 14:1 ABG pH 7.29 L 7.26 L ABG pCO2 72.3 H* 83.0 H* ABG pO2 57.4 L 53.7 L ABG HCO3 33.6 H 36.1 H ABG O2 Saturation 85.3 L 80.9 L ABG Base Excess 5.3 7.2 FiO2 100% 100% Sodium Potassium Chloride Carbon Dioxide Anion Gap BUN Creatinine Est GFR ( Amer) Est GFR (Non-Af Amer) Glucose Calcium Magnesium Total Bilirubin AST ALT Alkaline Phosphatase Total Protein Albumin 07/18/17 05:43 WBC RBC Hgb Hct MCV MCH MCHC RDW Plt Count Seg Neutrophils % Lymphocytes % Monocytes % Eosinophils % Basophils % Absolute Neutrophils Absolute Lymphocytes Absolute Monocytes Absolute Eosinophils Absolute Basophils Carbonic Acid HCO3/H2CO3 Ratio ABG pH ABG pCO2 ABG pO2 ABG HCO3 ABG O2 Saturation ABG Base Excess FiO2 Sodium 148.3 H Potassium 4.6 Chloride 108 H Carbon Dioxide 33 H Anion Gap 7 BUN 37 H D Creatinine 1.04 Est GFR ( Amer) > 60 Est GFR (Non-Af Amer) 54 L Glucose 303 H Calcium 8.4 Magnesium 2.1 Total Bilirubin < 0.1 L AST 18 ALT 31 Alkaline Phosphatase 61 Total Protein 4.6 L Albumin 2.4 L 07/13/17 01:22 Blood Blood Culture - Final NO GROWTH IN 5 DAYS 07/13/17 00:19 Blood Blood Culture - Final NO GROWTH IN 5 DAYS 07/13/17 07/13/17 07/13/17 00:19 06:30 12:23 Troponin I 0.140 0.097 0.073 NT-Pro-B Natriuret Pep 07/17/17 08:15 Troponin I NT-Pro-B Natriuret Pep 724 EKG Comments: Telemetry strips shows continued atrial flutter. Impressions: Chest/Abdomen CTA 07/14/17 00:00 IMPRESSION: 1. No pulmonary emboli. 2. Airspace opacities in the left upper lobe and left lower lobe, may represent pneumonia. CT thorax after treatment recommended to ensure resolution and exclude neoplasm. 3. Emphysema. Mild mediastinal adenopathy. 4. Small pericardial effusion. 5. Heterogeneous appearance of the thyroid gland. This can be better evaluated dedicated ultrasound. 6. Trace ascites. Pericholecystic fluid, may be secondary to the ascites versus acute cholecystitis. Chest X-Ray 07/18/17 06:00 IMPRESSION: No significant interval change in the large airspace opacity within the left lung with consolidation at the left lung base and a small left pleural effusion. 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 Qualified Code(s): E11.8 - Type 2 diabetes mellitus with unspecified complications Is this a current diagnosis for this admission?: Yes (6) Coronary artery disease Qualifiers: Coronary Disease-Associated Artery/Lesion type: [place] artery Associated angina: without angina Is this a current diagnosis for this admission?: Yes (7) Sepsis Qualifiers: Sepsis type: sepsis due to unspecified organism Qualified Code(s): A41.9 - Sepsis, unspecified organism Is this a current diagnosis for this admission?: Yes (8) Hypotension (arterial) Qualifiers: Hypotension type: unspecified hypotension type Qualified Code(s): I95.9 - Hypotension, unspecified Is this a current diagnosis for this admission?: Yes - Notes Notes: Patient remains critically ill with multiple comorbid diagnosis and end-stage COPD as well as emphysema with now ARDS. Cardiac green patient is having atrial flutter which has been persistent. Not a good candidate for chronic anticoagulation. Continue current management plans. Will continue to follow. Overall prognosis is poor given end-stage pulmonary disease. - Time Time with patient: 15-25 minutes - CODE STATUS : was discussed, patient remains DO NOT RESUSCITATE. Surrogate decision-maker unchanged. Multiple medical problems were addressed. More than 50% of the time spent coordinating care, discussing management plans with involved caregivers. Management plans discussed with involved personnels. Medical decision making was of moderate to high complexity, patient's has multiple comorbidities. Medications reviewed and adjusted accordingly: Yes
[2017-07-18] MEDS: NORMAL SALINE 1000 ML 1,000 ML IV PRN (21:44)
[2017-07-19] MEDS: LEVALBUTEROL HCL NEB 1.25 MG/3 ML AMPUL NEB SCH ×4 (00:14→11:53)
[2017-07-19] MEDS: METHYLPREDNISOLONE INJ 125 MG/2 ML SDV IV SCH ×2 (00:17→05:19)
[2017-07-19] MEDS: INSULIN LISPRO 100 UNIT/ML 3 ML VIAL SUBCUT PRN ×2 (00:17→05:19)
[2017-07-19] MEDS: PROPOFOL 100 ML IV PRN ×2 (02:32→08:37)
[2017-07-19] MEDS: DILTIAZEM HCL/D5W 125 MG/125 ML RTUINJ IV PRN (02:35)
[2017-07-19 05:36] LABS: HEMATOCRIT 25.4 % (36.0-47.0); HEMOGLOBIN 8.2 g/dL (12.0-15.5); MEAN CORPUSCULAR HEMOGLOBIN 26.2 pg (27.0-33.4); MEAN CORPUSCULAR HGB CONC 32.3 g/dL (32.0-36.0); MEAN CORPUSCULAR VOLUME 81 fl (80-97); PLATELET COUNT 160 10^3/uL (150-450); RED BLOOD COUNT 3.13 10^6/uL (3.72-5.28); RED CELL DISTRIBUTION WIDTH 21.4 % (11.5-14.0); WHITE BLOOD COUNT 10.4 10^3/uL (4.0-10.5)
[2017-07-19 05:40] LABS: ARTERIAL BLOOD FIO2 100%; ARTERIAL BLOOD HCO3 36.3 mmol/L (20-26); ARTERIAL BLOOD O2 SATURATION 78.6 % (94-98); ARTERIAL BLOOD PH 7.29 (7.35-7.45); ARTERIAL BLOOD PO2 49.2 mmHg (80-100); ARTERIAL BLOOD TOTAL CO2 38.6 mmol/L (21-25)
[2017-07-19 05:43] LABS: ARTERIAL BLOOD PCO2 76.5 mmHg (35-45)
[2017-07-19 05:46] LABS: ANION GAP 5 (5-19); BLOOD UREA NITROGEN 45 mg/dL (7-20); CALCIUM 8.5 mg/dL (8.4-10.2); CARBON DIOXIDE 34 mmol/L (22-30); CHLORIDE 109 mmol/L (98-107); GLUCOSE 274 mg/dL (75-110); MAGNESIUM 2.3 mg/dL (1.6-2.3); POTASSIUM 4.7 mmol/L (3.6-5.0); SODIUM 148.1 mmol/L (137-145)
[2017-07-19 05:52] LABS: ABSOLUTE NEUTROPHILS# (MANUAL) 10.4 10^3/uL (1.7-8.2); BAND NEUTROPHILS % (MANUAL) 6 % (3-5); BASOPHILS % (MANUAL) 0 % (0-2); EOSINOPHILS % (MANUAL) 0 % (0-6); LYMPHOCYTES % (MANUAL) 0 % (13-45); METAMYELOCYTES % (MANUAL) 1 % (0); MONOCYTES % (MANUAL) 0 % (3-13); NUCLEATED RED BLOOD CELLS 2 /100 WBC (0); SEGMENTED NEUTROPHILS % (MAN) 93 % (42-78); TOTAL CELLS COUNTED 100
[2017-07-19 05:54] LABS: ANISOCYTOSIS 3+; OVALOCYTES SLIGHT; PLATELET COMMENT ADEQUATE; POIKILOCYTOSIS 1+; TARGET CELLS SLIGHT; TEAR DROP CELLS 1+; TOXIC GRANULATION SLIGHT
--- NOTE | 2017-07-19 07:10 | RADIOLOGY REPORT (SQ) ---
EXAM DESCRIPTION: CHEST SINGLE VIEW COMPLETED DATE/TIME: 07/19/2017 6:22 am REASON FOR STUDY: pna/resp failure COMPARISON: Chest x-ray 07/18/2017, 07/16/2017. EXAM PARAMETERS: NUMBER OF VIEWS: One view TECHNIQUE: Single frontal radiograph of the chest. RADIATION DOSE: N/A LIMITATIONS: None. FINDINGS: TEMPORARY SUPPORT DEVICES:ETT in expected location. NG tube courses below the left julianne-d iaphragm in to the stomach. Central venous access catheter tip is in expected location. LUNGS AND PLEURA: Small left pleural effusion with consolidation with air bronchograms at the left narciso ng base. Large airspace opacity within the left lung, has increased since prior chest x-ray from 06/19. No pneumothorax. MEDIASTINUM AND HILAR STRUCTURES: No masses. Contour normal. HEART AND VASCULAR STRUCTURES: The heart is not enlarged. No overt vascular congestion. BONES: No acute findings. IMPRESSION: Small left pleural effusion with consolidation at the left lung base and large airspace opacity within the left lung, suggestive of pneumonia, worsened since the chest x-ray from 07/16/2017. TECHNICAL DOCUMENTATION: JOB ID: [id number] [employer]- All Rights Reserved
[2017-07-19] MEDS: NORMAL SALINE 1000 ML 1,000 ML IV PRN (07:42)
[2017-07-19] MEDS: PANTOPRAZOLE SODIUM 40 MG VIAL IV SCH (08:07)
[2017-07-19] MEDS: INSULIN GLARGINE,HUM.REC.ANLOG 1,000 UNIT/10 ML UNIT SUBCUT SCH (08:21)
[2017-07-19] MEDS: BUDESONIDE NEB 0.5 MG/2 ML AMPUL NEB SCH (08:22)
[2017-07-19] MEDS: IRON SUCROSE COMPLEX INJ/PF 100 MG/5 ML SDV IV SCH (08:27)
[2017-07-19] MEDS: CEFEPIME 1 GM/D5W RTU 1 GM/50 ML RTUPB IV SCH (09:03)
[2017-07-19] MEDS: DIGOXIN 0.125 MG TABLET PO SCH (09:03)
[2017-07-19] MEDS: DRONEDARONE HYDROCHLORIDE 400 MG TABLET PO SCH (09:03)
[2017-07-19] MEDS: HEPARIN SOD (PORCINE) 5,000 UNIT/ML 1 ML SYRINGE SUBCUT SCH (09:04)
--- NOTE | 2017-07-19 11:33 | PDOC PROGRESS REPORT ---
Subjective Progress Note for:: 07/19/17 Subjective:: Patient's condition has not improved CT of the chest cannot be performed as patient becomes extremely hypoxemic Family is considering comfort care Reason For Visit: ACUTE ON CHRONIC RESPIRATORY FAILURE SECONDARY TO Physical Exam Vital Signs: Temp Pulse Resp BP Pulse Ox 98.1 F 102 H 20 115/63 100 07/19/17 08:00 07/19/17 08:22 07/19/17 08:22 07/19/17 08:00 07/19/17 08:22 Intake & Output 07/18/17 07/19/17 07/20/17 00:59 00:59 00:59 Intake Total 3209 1791 1086 Output Total 2145 1485 600 Balance 1064 306 486 Weight 77.7 kg 70.1 kg 70.9 kg General appearance: PRESENT: no acute distress, thin, well-developed, well- nourished Head exam: PRESENT: atraumatic, normocephalic Eye exam: PRESENT: conjunctiva pink, EOMI, PERRLA. ABSENT: scleral icterus Ear exam: PRESENT: normal external ear exam Mouth exam: PRESENT: moist, tongue midline Neck exam: ABSENT: carotid bruit, JVD, lymphadenopathy, thyromegaly Respiratory exam: PRESENT: crackles, decreased breath sounds, symmetrical, unlabored - left bases Cardiovascular exam: PRESENT: RRR. ABSENT: diastolic murmur, rubs, systolic murmur Pulses: PRESENT: normal dorsalis pedis pul Vascular exam: PRESENT: normal capillary refill GI/Abdominal exam: PRESENT: normal bowel sounds, soft. ABSENT: distended, guarding, mass, organolmegaly, rebound, tenderness Rectal exam: PRESENT: deferred Extremities exam: PRESENT: full ROM. ABSENT: calf tenderness, clubbing, pedal edema Neurological exam: PRESENT: other Psychiatric exam: PRESENT: other - intubated and sedated Skin exam: PRESENT: dry, intact, warm. ABSENT: cyanosis, rash Results Laboratory Results: 07/19/17 05:12 07/19/17 05:12 07/19/17 07/19/17 07/19/17 05:12 05:12 05:12 WBC 10.4 RBC 3.13 L Hgb 8.2 L Hct 25.4 L MCV 81 MCH 26.2 L MCHC 32.3 RDW 21.4 H Plt Count 160 Seg Neutrophils % Not Reportable Lymphocytes % Not Reportable Monocytes % Not Reportable Eosinophils % Not Reportable Basophils % Not Reportable Absolute Neutrophils Not Reportable Absolute Lymphocytes Not Reportable Absolute Monocytes Not Reportable Absolute Eosinophils Not Reportable Absolute Basophils Not Reportable Carbonic Acid 2.30 H HCO3/H2CO3 Ratio 15:1 ABG pH 7.29 L ABG pCO2 76.5 H* ABG pO2 49.2 L ABG HCO3 36.3 H ABG O2 Saturation 78.6 L ABG Base Excess 8.0 FiO2 100% Sodium 148.1 H Potassium 4.7 Chloride 109 H Carbon Dioxide 34 H Anion Gap 5 BUN 45 H Creatinine 0.83 Est GFR ( Amer) > 60 Est GFR (Non-Af Amer) > 60 Glucose 274 H Calcium 8.5 Magnesium 2.3 07/17/17 18:15 Tracheal Aspirate Gram Stain - Final 07/17/17 18:15 Tracheal Aspirate Sputum Culture - Final NORMAL TIANNA 07/13/17 07/13/17 07/13/17 00:19 06:30 12:23 Troponin I 0.140 0.097 0.073 NT-Pro-B Natriuret Pep 07/17/17 08:15 Troponin I NT-Pro-B Natriuret Pep 724 Impressions: Chest/Abdomen CTA 07/14/17 00:00 IMPRESSION: 1. No pulmonary emboli. 2. Airspace opacities in the left upper lobe and left lower lobe, may represent pneumonia. CT thorax after treatment recommended to ensure resolution and exclude neoplasm. 3. Emphysema. Mild mediastinal adenopathy. 4. Small pericardial effusion. 5. Heterogeneous appearance of the thyroid gland. This can be better evaluated dedicated ultrasound. 6. Trace ascites. Pericholecystic fluid, may be secondary to the ascites versus acute cholecystitis. Chest X-Ray 07/19/17 06:00 IMPRESSION: Small left pleural effusion with consolidation at the left lung base and large airspace opacity within the left lung, suggestive of pneumonia, worsened since the chest x-ray from 07/16/2017. Assessment & Plan - Diagnosis (1) COPD exacerbation Is this a current diagnosis for this admission?: Yes (2) Hypotension (arterial) Qualifiers: Hypotension type: unspecified hypotension type Qualified Code(s): I95.9 - Hypotension, unspecified Is this a current diagnosis for this admission?: Yes (3) Sepsis Qualifiers: Sepsis type: sepsis due to unspecified organism Qualified Code(s): A41.9 - Sepsis, unspecified organism Is this a current diagnosis for this admission?: Yes (4) Acute on chronic diastolic (congestive) heart failure Is this a current diagnosis for this admission?: Yes (5) Acute on chronic respiratory failure with hypoxia and hypercapnia Is this a current diagnosis for this admission?: Yes (6) Pneumonia Qualifiers: Pneumonia type: due to Haemophilus influenzae Laterality: unspecified laterality Lung location: unspecified part of lung Qualified Code(s): J14 - Pneumonia due to Hemophilus influenzae Is this a current diagnosis for this admission?: Yes - Time Time Spent with patient: We will continue present management Unfortunately patient's condition is deteriorating Oximetry is not improving on ventilatory support Family is contemplating comfort care
[2017-07-19] MEDS ORDERED: DEXTROSE 5%-1/2 NORMAL SALINE 1,000 ML IV PRN (11:37)
[2017-07-19] MEDS ORDERED: VANCOMYCIN HCL 0 MG in DEXTROSE 5%-WATER 250 ML IV NR (11:45)
[2017-07-19] MEDS ORDERED: DILTIAZEM HCL 60 MG TABLET NG SCH (12:00)
[2017-07-19] MEDS ORDERED: MORPHINE SULFATE 10 MG/ML INJ ONE (14:24)
[2017-07-19] MEDS ORDERED: MORPHINE SULFATE 10 MG/ML INJ IV ONE (14:24)
[2017-07-19] MEDS ORDERED: MORPHINE SULFATE 10 MG/ML INJ IV PRN (14:33)
[2017-07-19] MEDS ORDERED: LORAZEPAM INJ 2 MG/1 ML VIAL IV PRN (14:34)
[2017-07-19] MEDS ORDERED: METHYLPREDNISOLONE INJ 125 MG/2 ML SDV IV SCH (15:00)
[2017-07-19 16:41] VITALS: BP 112/57
[2017-07-19] MEDS ORDERED: VANCOMYCIN HCL 1,000 MG in DEXTROSE 5%-WATER 250 ML IV SCH (18:00)
--- NOTE | 2017-07-19 19:01 | Death Summary ---
Summary Date : 07/19/17 Autopsy: No Resuscitation Status: Comfort Measures Only - Final Diagnosis (1) COPD exacerbation Is this a current diagnosis for this admission?: Yes (2) Hypotension (arterial) Is this a current diagnosis for this admission?: Yes (3) Sepsis Is this a current diagnosis for this admission?: Yes (4) Acute on chronic diastolic (congestive) heart failure Is this a current diagnosis for this admission?: Yes (5) Acute on chronic respiratory failure with hypoxia and hypercapnia Is this a current diagnosis for this admission?: Yes (6) Pneumonia Is this a current diagnosis for this admission?: Yes Hospital Course:: Patient had a long course in the hospital and treated for sepsis and pneumonia Despite aggressive my measures broad-spectrum antibiotics, pressors condition continued to deteriorate She was placed on comfort care, was extubated She a few minutes after the ET tube was removed with the family at the bedside
[2017-07-19] MEDS ORDERED: INSULIN GLARGINE,HUM.REC.ANLOG 1,000 UNIT/10 ML UNIT SUBCUT SCH (22:00)
== END 2017-07-19 14:54 | DRG 870 ==
LOC: ER 14:11 → EH 17:55 → ICU 23:17
PROVIDERS: ADMIT Emergency Medicine; ATTEND Emergency Medicine
PROC: 5A1955Z Respiratory Ventilation, Greater than 96 Consecutive Hours (ICD-10-PCS; principal; 2017-07-12)
PROC: 5A09357 Assistance with Respiratory Ventilation, Less than 24 Consecutive Hours, Continuous Positive Airway Pressure (ICD-10-PCS; 2017-07-12)
PROC: 0BH17EZ Insertion of Endotracheal Airway into Trachea, Via Natural or Artificial Opening (ICD-10-PCS; 2017-07-12)
PROC: 3E0F73Z Introduction of Anti-inflammatory into Respiratory Tract, Via Natural or Artificial Opening (ICD-10-PCS; 2017-07-12)
PROC: 02HV33Z Insertion of Infusion Device into Superior Vena Cava, Percutaneous Approach (ICD-10-PCS; 2017-07-16)
PROC: B5181ZA Fluoroscopy of Superior Vena Cava using Low Osmolar Contrast, Guidance (ICD-10-PCS; 2017-07-16)
DX: A41.3 Sepsis due to Hemophilus influenzae (principal); J96.21 Acute and chronic respiratory failure with hypoxia; I50.33 Acute on chronic diastolic (congestive) heart failure; J18.9 Pneumonia, unspecified organism; J96.22 Acute and chronic respiratory failure with hypercapnia; J44.1 Chronic obstructive pulmonary disease with (acute) exacerbation; I48.92 Unspecified atrial flutter; I47.1 Supraventricular tachycardia; J44.0 Chronic obstructive pulmonary disease with (acute) lower respiratory infection; Z66 Do not resuscitate; I95.9 Hypotension, unspecified; I11.0 Hypertensive heart disease with heart failure; Z78.1 Physical restraint status; E09.9 Drug or chemical induced diabetes mellitus without complications; T38.0X5A Adverse effect of glucocorticoids and synthetic analogues, initial encounter; M19.90 Unspecified osteoarthritis, unspecified site; D64.9 Anemia, unspecified; I48.0 Paroxysmal atrial fibrillation; F17.210 Nicotine dependence, cigarettes, uncomplicated; I25.10 Atherosclerotic heart disease of native coronary artery without angina pectoris; I25.2 Old myocardial infarction; Z87.820 Personal history of traumatic brain injury; Z88.3 Allergy status to other anti-infective agents; Z79.82 Long term (current) use of aspirin; Z79.4 Long term (current) use of insulin; Z79.899 Other long term (current) drug therapy; Z83.6 Family history of other diseases of the respiratory system; Z82.49 Family history of ischemic heart disease and other diseases of the circulatory system
CPT/HCPCS: 36415; 51702; 71045; 71275; 80048; 80053; 80162; 80202; 80307; 81001; 82271; 82550; 82553; 82565; 82607; 82728; 82746; 82803; 82962; 83540; 83550; 83735; 83880; 84100; 84443; 84466; 84484; 85025; 85045; 85610; 85730; 86850; 86900; 86901; 87040; 87070; 87077; 87086; 87205; 93005; 93010; 93306; 94002; 94003; 94640; 94660; 96365; 96366; 96375; 99291; 99292; J0153; J0330; J0692; J1160; J1644; J1756; J1815; J1940; J2060; J2250; J2270; J2704; J2930; J3370; J3490; J7030; J7040; J7060; J7614; J7620; S0164